=== PATIENT | female | born 1970 | race Caucasian/White ===

== ENCOUNTER 2016-06-27 21:28 | Emergency (ER) | payer MEDICAID, OTHER ==
[~2016-06-27] VITALS: Ht 160 cm; Wt 85.0 kg
[~2016-06-27 21:28] MED LIST: ACET-703 PO; BUDE.25I NEB; CYCL7.5T33 PO; DIAZ2 PO; FLUTI110I INH; GABA600T PO; GLIP5 PO; MEDR4PAK PO; MELO-1 PO; NOVORP2 SQ; PANT20 PO; PLAQ200T PO; VENTAER INH
[2016-06-27 21:54] VITALS: BP 152/94; PULSE 88; RESP 24; TEMP 98.5; O2SAT 96
[2016-06-27] MEDS ORDERED: SODIUM CHLOR 0.9% 1000 ML INJ 1,000 ML IV SCH (22:04)
--- NOTE | 2016-06-27 22:10 | PD ---
HPI Chief Complaint: Pain: Acute or Chronic Time Seen by Provider: 22:01 Travel History International Travel<30 days: No Contact w/Intl Traveler<30days: No Traveled to known affect area: No History of Present Illness HPI 46-year-old female with history of fibromyalgia, anxiety, here for evaluation of abdominal pain and posterior head pain. Abdominal pain is right and mid. History of cholecystectomy. She reports diffuse headache which started this morning, progressive in onset. The patient appears very anxious. No chest pain. No fevers or chills. No paresthesias or motor deficits. PFSH Past Medical History Hx Anticoagulant Therapy: Yes Asthma: Yes Cardiovascular Problems: Yes (NE) Cerebrovascular Accident: Yes (TIA) Diabetes: Yes Diminished Hearing: No Fibromyalgia: Yes Respiratory: Yes (ASTHMA) Immunizations Current: Yes ?: Not LMP: 06/12/16 : 2 Para: 2 Past Surgical History Section: Yes Cholecystectomy: Yes Other Surgery: Yes (tendonitis) Social History Alcohol Use: No Tobacco Use: No (NEVER) Substance Use: No Allergies-Medications (Allergen,Severity, Reaction): Coded Allergies: Iodine (Verified Allergy, Severe, Anaphylaxis, 06/27/16) Shellfish (Verified Allergy, Severe, Anaphylaxis, 06/27/16) Theophylline (Verified Allergy, Severe, Anaphylaxis, 06/27/16) Benadryl (Verified Allergy, Intermediate, SWELLING, 06/27/16) Naprosyn (Verified Allergy, Intermediate, Rash, 06/27/16) Penicillin (Verified Allergy, Intermediate, RASH, 06/27/16) Broccoli (Verified Allergy, Unknown, 06/27/16) Imuran (Verified Allergy, Unknown, 06/27/16) Keflex (Verified Allergy, Unknown, 06/27/16) Motrin (Verified Adverse Reaction, Mild, LUPUS, 06/27/16) Uncoded Allergies: AMRNOHILSON (Allergy, Severe, 12/16/15) .. Eggplant (Allergy, Unknown, 04/23/16) Reported Meds & Prescriptions Reported Meds & Active Scripts Active Gabapentin 600 Mg Tab 600 Mg PO TID Meloxicam 15 Mg Tab 15 Mg PO DAILY Reported Novolin R Inj (Insulin Human Regular) 1,000 Unit/10 Ml Vial 0 SQ DIRECTED Sliding Scale As Directed. Plaquenil (Hydroxychloroquine Sulfate) 200 Mg Tab 200 Mg PO BID Take with food Glucotrol (Glipizide) 5 Mg Tab 5 Mg PO DAILY Take 30 minutes before a meal Flovent Hfa 12 GM Inh (Fluticasone Propionate) 110 Mcg/Act Inh 1 Puff INH BID Pulmicort Respules (Budesonide) 0.25 Mg/2 Ml Neb 0.25 Mg NEB Q12HR Ventolin Hfa 18 GM Inh (Albuterol Sulfate) 90 Mcg/Act Aer 2 Puff INH Q4H PRN Review of Systems Except as stated in HPI: all other systems reviewed are Neg Physical Exam Narrative GENERAL: Well-developed, well-nourished, appears anxious, no distress. SKIN: Warm and dry. HEAD: Atraumatic. Normocephalic. EYES: Pupils equal and round. No scleral icterus. No injection or drainage. ENT: Mucous membranes pink and moist. NECK: Trachea midline. No JVD. No nuchal rigidity. CARDIOVASCULAR: Regular rate and rhythm. RESPIRATORY: No accessory muscle use. Clear to auscultation. Breath sounds equal bilaterally. GASTROINTESTINAL: Abdomen soft, non-tender, nondistended. MUSCULOSKELETAL: No obvious deformities. No clubbing. No cyanosis. No edema. NEUROLOGICAL: Awake and alert. No obvious cranial nerve deficits. Motor grossly within normal limits. Normal speech. PSYCHIATRIC: Appropriate mood and affect; insight and judgment normal. Data Data Last Documented VS Vital Signs Date Time Temp Pulse Resp B/P Pulse Ox O2 Delivery O2 Flow Rate FiO2 06/27/16 23:32 16 97 Room Air 06/27/16 23:00 82 152/93 06/27/16 21:54 98.5 Orders Beta Hcg (Quant/Titer) (06/27/16 22:04) Complete Blood Count With Diff (06/27/16 22:04) Comprehensive Metabolic Panel (06/27/16 22:04) Lipase (06/27/16 22:04) Prothrombin Time / Inr (Pt) (06/27/16 22:04) Act Partial Throm Time (Ptt) (06/27/16 22:04) Urinalysis - C+S If Indicated (06/27/16 22:04) Iv Access Insert/Monitor (06/27/16 22:04) Ecg Monitoring (06/27/16 22:04) Oximetry (06/27/16 22:04) Morphine Inj (Morphine Inj) (06/27/16 22:15) Sodium Chlor 0.9% 1000 Ml Inj (Ns 1000 M (06/27/16 22:04) Sodium Chloride 0.9% Flush (Ns Flush) (06/27/16 22:15) Electrocardiogram (06/27/16 22:04) Ct Abd/Pel W/O Iv Contrast (06/27/16 22:04) Metoclopramide Inj (Reglan Inj) (06/27/16 22:15) Ct Brain W/O Iv Contrast(Rout) (06/27/16 ) Sodium Chlor 0.9% 1000 Ml Inj (Ns 1000 M (06/27/16 22:15) Labs Laboratory Tests Test 06/27/16 06/27/16 23:00 23:15 Urine Color YELLOW Urine Turbidity CLEAR Urine pH 6.0 Urine Specific [place] 1.009 Urine Protein NEG mg/dL Urine Glucose (UA) NEG mg/dL Urine Ketones NEG mg/dL Urine Occult Blood SMALL Urine Nitrite NEG Urine Bilirubin NEG Urine Urobilinogen LESS THAN 2.0 MG/DL Urine Leukocyte Esterase TRACE Urine RBC LESS THAN 1 /hpf Urine WBC 3 /hpf Urine Bacteria RARE /hpf Urine Mucus FEW /lpf Microscopic Urinalysis Comment CULT NOT INDICATED Prothrombin Time 10.8 SEC Prothromb Time International 1.0 RATIO Ratio Activated Partial 27.0 SEC Thromboplast Time Sodium Level 142 MEQ/L Potassium Level 3.3 MEQ/L Chloride Level 105 MEQ/L Carbon Dioxide Level 28.6 MEQ/L Anion Gap 8 MEQ/L Blood Urea Nitrogen 7 MG/DL Creatinine 0.73 MG/DL Estimat Glomerular Filtration 86 ML/MIN Rate Random Glucose 82 MG/DL Calcium Level 8.3 MG/DL Total Bilirubin 0.2 MG/DL Aspartate Amino Transf 17 U/L (AST/SGOT) Alanine Aminotransferase 32 U/L (ALT/SGPT) Alkaline Phosphatase 74 U/L Total Protein 7.5 GM/DL Albumin 3.7 GM/DL Lipase 245 U/L Human Chorionic Gonadotropin, LESS THAN 1 Quant MIU/ML White Blood Count 5.7 TH/MM3 Red Blood Count 4.54 MIL/MM3 Hemoglobin 8.9 GM/DL Hematocrit 28.6 % Mean Corpuscular Volume 63.0 FL Mean Corpuscular Hemoglobin 19.6 PG Mean Corpuscular Hemoglobin 31.1 % Concent Red Cell Distribution Width 20.1 % Platelet Count 165 TH/MM3 Mean Platelet Volume 10.0 FL Neutrophils (%) (Auto) 56.5 % Lymphocytes (%) (Auto) 31.0 % Monocytes (%) (Auto) 8.6 % Eosinophils (%) (Auto) 3.2 % Basophils (%) (Auto) 0.7 % Neutrophils # (Auto) 3.2 TH/MM3 Lymphocytes # (Auto) 1.8 TH/MM3 Monocytes # (Auto) 0.5 TH/MM3 Eosinophils # (Auto) 0.2 TH/MM3 Basophils # (Auto) 0.0 TH/MM3 CBC Comment AUTO DIFF Differential Comment AUTO DIFF CONFIRMED Platelet Estimate NORMAL Platelet Morphology Comment NORMAL Ovalocytes 1+ Acanthocytes OCC MDM Medical Decision Making Medical Screen Exam Complete: Yes Emergency Medical Condition: Yes Medical Record Reviewed: Yes Interpretation(s) EKG: Sinus, rate 94, normal axis, normal intervals, no acute ischemic abnormality. Differential Diagnosis Intra-abdominal infection, viral illness, acute on chronic pain, meningitis/ encephalitis/SAH unlikely Narrative Course Vital signs are within normal limits. CBC is remarkable for hemoglobin 8.9, hematocrit 28.6 which is around her baseline, otherwise unremarkable. CMP is remarkable for potassium 3.3, otherwise unremarkable. Lipase is 245. Beta hCG is negative. UA is not suggestive of UTI. CT head: Stable brain, no acute intracranial findings. CT abdomen pelvis: No acute findings. The patient was given pain medications, and upon reassessment she is resting comfortably. She is still complaining of some abdominal discomfort. Her abdominal exam is benign. I believe this is an acute exacerbation of her chronic pain syndrome/fibromyalgia. Chart review shows that the patient has been here several times in the past with similar complaints. I believe she is stable for discharge home with outpatient follow-up with her primary care physician this week. She was informed on when to return to the emergency department. She verbalizes understanding and agreement with plan. Diagnosis Primary Impression: Abdominal pain Qualified Code: R10.9 - Abdominal pain, unspecified location Referrals: Primary Care Physician 3 days Additional Instructions: Follow-up with your primary care physician this week. Return to the emergency department for worsening symptoms or any other concerns. Disposition: 01 DISCHARGE HOME Condition: Stable Kelvin Frederick MD Jun 27, 2016 22:10
[2016-06-27] MEDS ORDERED: MORPHINE SULFATE 4 MG/ML INJ IV PUSH ONE (22:15)
[2016-06-27] MEDS ORDERED: SODIUM CHLORIDE 0.9% FLUSH 5 ML FLUSH IVF PRN (22:15)
[2016-06-27] MEDS ORDERED: SODIUM CHLOR 0.9% 1000 ML INJ 1,000 ML IV ONE (22:15)
[2016-06-27] MEDS ORDERED: METOCLOPRAMIDE HCL 10 MG/2 ML VIAL IV PUSH ONE (22:15)
[2016-06-27 23:00] VITALS: BP 152/93; PULSE 82; RESP 16; O2SAT 97
[2016-06-27 23:30] LABS: AUTOMATED NEUTROPHIL # 3.2 TH/MM3 (1.8-7.7); BASOPHIL % 0.7 % (0.0-2.0); EOSINOPHIL # 0.2 TH/MM3 (0-0.4); EOSINOPHIL % 3.2 % (0.0-4.0); HEMATOCRIT 28.6 % (35.0-46.0); LYMPHOCYTE # 1.8 TH/MM3 (1.0-4.8); MEAN CORPUSCULAR HEMOGLOBIN 19.6 PG (27.0-34.0); MEAN CORPUSCULAR HGB CONC 31.1 % (32.0-36.0); MONO % 8.6 % (0.0-8.0); NEUT % 56.5 % (16.0-70.0); PLATELET COUNT 165 TH/MM3 (150-450); RED BLOOD COUNT 4.54 MIL/MM3 (4.00-5.30); RED CELL DISTRIBUTION WIDTH 20.1 % (11.6-17.2); WHITE BLOOD COUNT 5.7 TH/MM3 (4.0-11.0)
[2016-06-27 23:31] LABS: BACTERIA, URINE RARE /hpf; BLOOD, URINE SMALL (NEG); GLUCOSE,URINE NEG (NEG); KETONE, URINE NEG (NEG); MUCUS URINE FEW /lpf (OCC); NITRITE,URINE NEG (NEG); URINE COLOR YELLOW (YELLW/STRAW)
[2016-06-27 23:32] VITALS: RESP 16; O2SAT 97
[2016-06-27 23:32] LABS: COMMENT (UR) CULT NOT INDICATED; CULTURE IF INDICATED CULT NOT INDICATED
[2016-06-27 23:33] LABS: HEMO FLAGS AUTO DIFF
[2016-06-27 23:35] LABS: PROTHROMBIN TIME - PATIENT 10.8 SEC (9.8-11.6)
[2016-06-27 23:38] LABS: ALT (GPT) 32 U/L (10-53); ANION GAP 8 MEQ/L (5-15); AST (GOT) 17 U/L (15-37); BICARBONATE 28.6 MEQ/L (21.0-32.0); BLOOD UREA NITROGEN 7 MG/DL (7-18); CHLORIDE 105 MEQ/L (98-107); GLOMERULAR FILTRATION RATE 86 ML/MIN (>89); POTASSIUM 3.3 MEQ/L (3.5-5.1); SODIUM (NA) 142 MEQ/L (136-145)
[2016-06-27 23:42] LABS: ALKALINE PHOSPHATASE 74 U/L (45-117); BETA HCG QUANT LESS THAN 1 MIU/ML (0-5); TOTAL BILIRUBIN ADULT 0.2 MG/DL (0.2-1.0)
[2016-06-28 00:09] LABS: ACANTHOCYTES OCC (NORMAL); OVALOCYTES 1+ (NORMAL); PLATELET ESTIMATE SMEAR NORMAL (NORMAL); PLATELET MORPHOLOGY NORMAL (NORMAL); SCAN/DIFF AUTO DIFF CONFIRMED
--- NOTE | 2016-06-28 00:27 | RADRPT ---
EXAM DATE/TIME: 06/28/2016 00:00 [facility] COMPARISON: No previous studies available for comparison. INDICATIONS : Diffuse abdominal pain. ORAL CONTRAST: No oral contrast ingested. RADIATION DOSE: 10.63 CTDIvol (mGy) MEDICAL HISTORY : Cardiovascular disease. CVA, fibromyalgia SURGICAL HISTORY : Cholecystectomy. section. ENCOUNTER: Initial ACUITY: 1 day PAIN SCALE: 7/10 LOCATION: abdomen TECHNIQUE: Volumetric scanning of the abdomen and pelvis was performed. Using automated exposure control and ad justment of the mA and/or kV according to patient size, radiation dose was kept as low as reasonably achievable to obtain optimal diagnostic quality images. FINDINGS: LOWER LUNGS: The visualized lower lungs are clear. LIVER: Mild hepatomegaly and probable steatosis with mild focal sparing adjacent to the gallbladder fossa. G allbladder surgically absent. No evidence of focal mass or biliary ductal dilatation. SPLEEN: Normal size without lesion. PANCREAS: Within normal limits. KIDNEYS: Normal in size and shape. There is no mass, stone, or hydronephrosis. ADRENAL GLANDS: Within normal limits. VASCULAR: There is no aortic aneurysm. BOWEL/MESENTERY: The stomach, small bowel, and colon demonstrate no acute abnormality. There is no free intraperitone al air or fluid. ABDOMINAL WALL: Small fat containing umbilical hernia. No evidence of incarceration RETROPERITONEUM: There is no lymphadenopathy. BLADDER: No wall thickening or mass. REPRODUCTIVE: Within normal limits. INGUINAL: There is no lymphadenopathy or hernia. MUSCULOSKELETAL: Within normal limits for patient age. CONCLUSION: No acute CT findings in the abdomen or pelvis Shravan Hoover MD on June 28, 2016 at 0:18 Board Certified Radiologist. This report was verified electronically.
--- NOTE | 2016-06-28 00:29 | RADRPT ---
EXAM DATE/TIME: 06/28/2016 00:00 [facility] COMPARISON: CT BRAIN W/O CONTRAST, January 25, 2016, 21:40. INDICATIONS : Cephalgia. RADIATION DOSE: 56.35 CTDIvol (mGy) MEDICAL HISTORY : Cardiovascular disease. CVA, fibromyalgia SURGICAL HISTORY : Cholecystectomy. section. ENCOUNTER: Initial ACUITY: 1 day PAIN SCALE: 8/10 LOCATION: cranial TECHNIQUE: Multiple contiguous axial images were obtained of the head. Using automated exposure control and adj ustment of the mA and/or kV according to patient size, radiation dose was kept as low as reasonably a chievable to obtain optimal diagnostic quality images. FINDINGS: CEREBRUM: The ventricles are normal for age. No evidence of midline shift, mass lesion, hemorrhage or acute in farction. No extra-axial fluid collections are seen. POSTERIOR FOSSA: The cerebellum and brainstem are intact. The 4th ventricle is midline. The cerebellopontine angle i s unremarkable. EXTRACRANIAL: The visualized portion of the orbits is intact. SKULL: The calvaria is intact. No evidence of skull fracture. CONCLUSION: Stable brain appearance. No acute intracranial findings. Shravan Hoover MD on June 28, 2016 at 0:26 Board Certified Radiologist. This report was verified electronically.
[2016-06-28 01:30] VITALS: BP 144/99; PULSE 92; RESP 18; O2SAT 97
[2016-06-28] MEDS ORDERED: ONDANSETRON HCL 4 MG/2 ML VIAL IV PUSH ONE (01:45)
--- NOTE | 2016-06-28 10:47 | EKG ---
Date Performed: 06/27/2016 Time Performed: 23:43:02 PTAGE: 46 years EKG: Sinus rhythm NORMAL ECG Compared to prior tracing no significant change PREVIOUS TRACING : 03/18/2016 23.30 DOCTOR: Terry Thompson Interpretating Date/Time 06/28/2016 10:44:28
== END 2016-06-28 02:09 | disposition home or self-care (01) ==
LOC: NEPA 21:28
DX: R10.9 Unspecified abdominal pain (principal); R51 Headache; J45.909 Unspecified asthma, uncomplicated; I25.2 Old myocardial infarction; E11.9 Type 2 diabetes mellitus without complications; M79.7 Fibromyalgia
CPT/HCPCS: 70450; 74176; 80053; 81001; 83690; 84702; 85025; 85610; 85730; 93005; 96374; 96375; 99284; J2270; J2405; J2765; J7030

== ENCOUNTER 2016-07-02 19:38 | Emergency (ER) | payer MEDICAID, OTHER ==
[~2016-07-02] VITALS: Ht 160 cm; Wt 84.1 kg
[~2016-07-02 19:38] MED LIST changes: -ACET-703 PO; -CYCL7.5T33 PO; -DIAZ2 PO; -MEDR4PAK PO; -PANT20 PO
[2016-07-02 19:42] VITALS: BP 182/96; PULSE 91; RESP 16; TEMP 97.6
[2016-07-02] MEDS ORDERED: PANT20 PO (20:09)
[2016-07-02] MEDS ORDERED: TYLETAB34 PO (20:09)
[2016-07-02] MEDS ORDERED: MELO-1 PO (20:09)
--- NOTE | 2016-07-02 20:13 | PD ---
HPI Chief Complaint: Pain: Acute or Chronic Time Seen by Provider: 20:00 Travel History International Travel<30 days: No Contact w/Intl Traveler<30days: No Traveled to known affect area: No History of Present Illness HPI This is a 46-year-old female with history of fibromyalgia, lupus, chronic abdominal pain who presents for evaluation of "sciatic." She has had sciatic symptoms over the past several months which she describes as an electric type of pain that shoots down the right lower back down the right leg. Today the pain became worse after walking around the museum for a long time this morning. She took her regular meloxicam, Neurontin medications and then she [place] and [place]. The pain has persisted which prompted evaluation. In addition the patient is requesting refills of her meloxicam, Protonix. She denies any acute injury. She denies any bowel or bladder incontinence or saddle anesthesia. She has no other complaints. PFSH Past Medical History Hx Anticoagulant Therapy: Yes Asthma: Yes Anxiety: Yes Cardiovascular Problems: Yes (HTN) Cerebrovascular Accident: Yes (TIA) Diabetes: Yes Diminished Hearing: No Fibromyalgia: Yes GERD: Yes Respiratory: Yes (ASTHMA) Immunizations Current: Yes LMP: 06/14/16 : 2 Para: 2 Past Surgical History Section: Yes Cholecystectomy: Yes Other Surgery: Yes (tendonitis) Social History Alcohol Use: No Tobacco Use: No (NEVER) Substance Use: No Allergies-Medications (Allergen,Severity, Reaction): Coded Allergies: Iodine (Verified Allergy, Severe, Anaphylaxis, 07/02/16) Shellfish (Verified Allergy, Severe, Anaphylaxis, 07/02/16) Theophylline (Verified Allergy, Severe, Anaphylaxis, 07/02/16) Benadryl (Verified Allergy, Intermediate, SWELLING, 07/02/16) Naprosyn (Verified Allergy, Intermediate, Rash, 07/02/16) Penicillin (Verified Allergy, Intermediate, RASH, 07/02/16) Broccoli (Verified Allergy, Unknown, 07/02/16) Imuran (Verified Allergy, Unknown, 07/02/16) Keflex (Verified Allergy, Unknown, 07/02/16) Motrin (Verified Adverse Reaction, Mild, LUPUS, 07/02/16) Uncoded Allergies: AMRNOHILSON (Allergy, Severe, 12/16/15) .. Eggplant (Allergy, Unknown, 04/23/16) Reported Meds & Prescriptions Reported Meds & Active Scripts Active Protonix (Pantoprazole Sodium) 20 Mg Tab 20 Mg PO DAILY Meloxicam 15 Mg Tab 15 Mg PO DAILY Tylenol-Codeine #3 (Acetaminophen-Codeine) 300-30 mg Tab 1-2 Tab PO Q6H PRN Gabapentin 600 Mg Tab 600 Mg PO TID Meloxicam 15 Mg Tab 15 Mg PO DAILY Reported Novolin R Inj (Insulin Human Regular) 1,000 Unit/10 Ml Vial 0 SQ DIRECTED Sliding Scale As Directed. Plaquenil (Hydroxychloroquine Sulfate) 200 Mg Tab 200 Mg PO BID Take with food Glucotrol (Glipizide) 5 Mg Tab 5 Mg PO DAILY Take 30 minutes before a meal Flovent Hfa 12 GM Inh (Fluticasone Propionate) 110 Mcg/Act Inh 1 Puff INH BID Pulmicort Respules (Budesonide) 0.25 Mg/2 Ml Neb 0.25 Mg NEB Q12HR Ventolin Hfa 18 GM Inh (Albuterol Sulfate) 90 Mcg/Act Aer 2 Puff INH Q4H PRN Review of Systems Except as stated in HPI: all other systems reviewed are Neg Physical Exam Narrative GENERAL: This is an anxious appearing female who is in no acute distress. Her vital signs of been reviewed. SKIN: Warm and dry. HEAD: Atraumatic. Normocephalic. EYES: Pupils equal and round. No scleral icterus. No injection or drainage. ENT: No nasal bleeding or discharge. Mucous membranes pink and moist. NECK: Trachea midline. No JVD. CARDIOVASCULAR: Regular rate and rhythm. No murmur appreciated. RESPIRATORY: No accessory muscle use. Clear to auscultation. Breath sounds equal bilaterally. GASTROINTESTINAL: Abdomen soft, non-tender, nondistended. MUSCULOSKELETAL: No obvious deformities. There is no objective lower extremity edema. There is tenderness to palpation in the right lumbosacral musculature. The patient has pain when going from lying down to sitting position. She maintains full range of motion of the lower extremities albeit with some pain. NEUROLOGICAL: Awake and alert. No obvious cranial nerve deficits. Motor grossly within normal limits. Normal speech. Data Data Last Documented VS Vital Signs Date Time Temp Pulse Resp B/P Pulse Ox O2 Delivery O2 Flow Rate FiO2 07/02/16 20:13 16 07/02/16 19:42 97.6 91 182/96 Room Air Orders Acetamin-Hydrocod 325-5 Mg ([place] 5-325 (07/02/16 20:15) Ondansetron Odt (Zofran Odt) (07/02/16 20:15) Ketorolac Inj (Toradol Inj) (07/02/16 20:15) MDM Medical Decision Making Medical Screen Exam Complete: Yes Emergency Medical Condition: Yes Medical Record Reviewed: Yes Differential Diagnosis Herniated nucleus pulposis, piriformis syndrome, muscle spasm, DVT, arterial occlusion, peripheral vascular disease, peripheral neuropathy Narrative Course 46-year-old female with history of fibromyalgia, lupus, chronic abdominal pain presents with right-sided lower back pain that shoots down the right leg which has been ongoing for several months but worsened this morning after walking around at a museum for a long period of time. The patient has been evaluated for the same symptoms here in the past. Her examination is benign. Examination and history are consistent with lumbosacral radiculopathy and there is no evidence of an alternative more sinister etiology. Ideally this patient would follow up with her primary care physician and likely physical therapy versus pain management for continuing management of this issue. She is attempting to establish care with a new primary care physician, Dr. Reddy and she was encouraged in these endeavors. The plan is to give her refills of her Protonix and meloxicam. She will be given a short course of Tylenol with codeine for breakthrough pain. She is stable for discharge. Diagnosis Primary Impression: Acute exacerbation of chronic low back pain Additional Instructions: Avoid strenuous activity. Follow-up with a primary care physician. you may benefit from outpatient physical therapy or pain management. Med/Other Pt SpecificInfo: Prescription(s) given Scripts Pantoprazole (Protonix)20 Mg Tab20 Mg PO DAILY #30 TAB Ref 0 Prov:Kelvin Frederick MD 07/02/16 Meloxicam 15 Mg Tab15 Mg PO DAILY #30 TAB Ref 0 Prov:Kelvin Frederick MD 07/02/16 Acetaminophen-Codeine (Tylenol-Codeine #3)300-30 mg Tab1-2 Tab PO Q6H PRN (PAIN ) #20 TAB Ref 0 Prov:Kelvin Frederick MD 07/02/16 Disposition: 01 DISCHARGE HOME Condition: Stable Ant Robles Jul 02, 2016 20:13
[2016-07-02] MEDS ORDERED: KETOROLAC TROMETHAMINE 60 MG/2 ML (IM) VIAL IM ONE (20:15)
[2016-07-02] MEDS ORDERED: ACETAMINOPHEN/HYDROcodone 325 MG/5 MG TAB PO ONE (20:15)
[2016-07-02] MEDS ORDERED: ONDANSETRON ODT 4 MG TAB PO ONE (20:15)
== END 2016-07-02 20:53 | disposition home or self-care (01) ==
LOC: NEPB 19:38
DX: M54.5 Low back pain (principal); G89.29 Other chronic pain; M79.7 Fibromyalgia; I10 Essential (primary) hypertension; Z86.73 Personal history of transient ischemic attack (TIA), and cerebral infarction without residual deficits
CPT/HCPCS: 96372; 99283; J1885

== ENCOUNTER 2016-07-15 18:16 | Emergency (ER) | payer MEDICAID ==
[~2016-07-15] VITALS: Ht 160 cm; Wt 90.0 kg
[~2016-07-15 18:16] MED LIST changes: +PANT20 PO; +TYLETAB34 PO
[2016-07-15 18:18] VITALS: BP 163/93; PULSE 90; RESP 20; TEMP 98.2; O2SAT 98
[2016-07-15 23:17] VITALS: BP 144/83; PULSE 85; RESP 16; TEMP 98.5; O2SAT 99
[2016-07-16 00:44] LABS: BACTERIA, URINE RARE /hpf; BLOOD, URINE NEG (NEG); COMMENT (UR) CULTURE INDICATED; CULTURE IF INDICATED CULTURE INDICATED; GLUCOSE,URINE NEG (NEG); HYALINE CAST, URINE 1 /lpf (RARE); KETONE, URINE NEG (NEG); MUCUS URINE FEW /lpf (OCC); NITRITE,URINE NEG (NEG); PH, URINE 5.5 (5.0-8.5); SQUAMOUS EPITHELIAL CELL URINE 1 /hpf (0-5); URINE COLOR YELLOW (YELLW/STRAW)
[2016-07-16] MEDS ORDERED: BACT800T5 PO (00:53)
[2016-07-16] MEDS ORDERED: OSEL75 PO (00:53)
--- NOTE | 2016-07-16 00:53 | PD ---
HPI Chief Complaint: Cold / Flu Symptoms Time Seen by Provider: 23:13 Travel History International Travel<30 days: No Contact w/Intl Traveler<30days: No Traveled to known affect area: No History of Present Illness HPI Patient is a 46-year-old female presents to the emergency department for evaluation of body aches cough congestion nausea without vomiting and diarrhea. Patient states that the entire family has been sick with the flu recently. Patient states her symptoms for 2 days. She states she's been having fever at home but did not take her temperature. She states that she did not have a flu shot this year. Nonproductive cough. Denies any abdominal pain to me. PFSH Past Medical History Hx Anticoagulant Therapy: Yes Asthma: Yes Autoimmune Disease: Yes (LUPUS) Anxiety: Yes Cardiovascular Problems: Yes (HTN) Cerebrovascular Accident: Yes (TIA) Diabetes: Yes Patient Takes Glucophage: No Diminished Hearing: No Fibromyalgia: Yes GERD: Yes Respiratory: Yes (ASTHMA) Immunizations Current: Yes ?: Unknown : 2 Para: 2 Past Surgical History Section: Yes Cholecystectomy: Yes Other Surgery: Yes (tendonitis) Social History Alcohol Use: No Tobacco Use: No Substance Use: No Allergies-Medications (Allergen,Severity, Reaction): Coded Allergies: Iodine (Verified Allergy, Severe, Anaphylaxis, 07/02/16) Shellfish (Verified Allergy, Severe, Anaphylaxis, 07/02/16) Theophylline (Verified Allergy, Severe, Anaphylaxis, 07/02/16) Benadryl (Verified Allergy, Intermediate, SWELLING, 07/02/16) Naprosyn (Verified Allergy, Intermediate, Rash, 07/02/16) Penicillin (Verified Allergy, Intermediate, RASH, 07/02/16) Broccoli (Verified Allergy, Unknown, 07/02/16) Imuran (Verified Allergy, Unknown, 07/02/16) Keflex (Verified Allergy, Unknown, 07/02/16) Motrin (Verified Adverse Reaction, Mild, LUPUS, 07/02/16) Uncoded Allergies: AMRNOHILSON (Allergy, Severe, 12/16/15) .. Eggplant (Allergy, Unknown, 04/23/16) Reported Meds & Prescriptions Reported Meds & Active Scripts Active Bactrim DS (Sulfamethoxazole-Trimethoprim) 800-160 Mg Tab 1 Tab PO BID 5 Days Tamiflu (Oseltamivir Phosphate) 75 Mg Cap 75 Mg PO BID 5 Days Protonix (Pantoprazole Sodium) 20 Mg Tab 20 Mg PO DAILY Tylenol-Codeine #3 (Acetaminophen-Codeine) 300-30 mg Tab 1-2 Tab PO Q6H PRN Gabapentin 600 Mg Tab 600 Mg PO TID Meloxicam 15 Mg Tab 15 Mg PO DAILY Reported Novolin R Inj (Insulin Human Regular) 1,000 Unit/10 Ml Vial 0 SQ DIRECTED Sliding Scale As Directed. Plaquenil (Hydroxychloroquine Sulfate) 200 Mg Tab 200 Mg PO BID Take with food Glucotrol (Glipizide) 5 Mg Tab 5 Mg PO DAILY Take 30 minutes before a meal Flovent Hfa 12 GM Inh (Fluticasone Propionate) 110 Mcg/Act Inh 1 Puff INH BID Pulmicort Respules (Budesonide) 0.25 Mg/2 Ml Neb 0.25 Mg NEB Q12HR Ventolin Hfa 18 GM Inh (Albuterol Sulfate) 90 Mcg/Act Aer 2 Puff INH Q4H PRN Review of Systems Except as stated in HPI: all other systems reviewed are Neg Physical Exam Narrative GENERAL: [Well-developed well-nourished, overweight but in no apparent distress. SKIN: Warm and dry. HEAD: Atraumatic. Normocephalic. EYES: Pupils equal and round. No scleral icterus. No injection or drainage. ENT: No nasal bleeding or discharge. Mucous membranes pink and moist. TMs clear bilaterally. NECK: Trachea midline. No JVD. CARDIOVASCULAR: Regular rate and rhythm. No murmur appreciated. RESPIRATORY: No accessory muscle use. Clear to auscultation. Breath sounds equal bilaterally. GASTROINTESTINAL: Abdomen soft, non-tender, nondistended. Hepatic and splenic margins not palpable. MUSCULOSKELETAL: No obvious deformities. No clubbing. No cyanosis. No edema. NEUROLOGICAL: Awake and alert. No obvious cranial nerve deficits. Motor grossly within normal limits. Normal speech. PSYCHIATRIC: Appropriate mood and affect; insight and judgment normal. Data Data Last Documented VS Vital Signs Date Time Temp Pulse Resp B/P Pulse Ox O2 Delivery O2 Flow Rate FiO2 07/16/16 01:00 98.9 69 16 151/77 98 07/15/16 23:53 Room Air Orders Chest, Pa & Lat (07/15/16 ) Urinalysis - C+S If Indicated (07/15/16 23:34) Ed Urine Pregnancytest Poc (07/15/16 23:34) Urine Culture (07/16/16 00:00) Labs Laboratory Tests Test 07/16/16 00:00 Urine Color YELLOW Urine Turbidity CLEAR Urine pH 5.5 Urine Specific [place] 1.012 Urine Protein TRACE mg/dL Urine Glucose (UA) NEG mg/dL Urine Ketones NEG mg/dL Urine Occult Blood NEG Urine Nitrite NEG Urine Bilirubin NEG Urine Urobilinogen LESS THAN 2.0 MG/DL Urine Leukocyte Esterase MOD Urine RBC 2 /hpf Urine WBC 14 /hpf Urine Squamous Epithelial 1 /hpf Cells Urine Bacteria RARE /hpf Urine Hyaline Casts 1 /lpf Urine Mucus FEW /lpf Microscopic Urinalysis Comment CULTURE INDICATED MDM Medical Decision Making Medical Screen Exam Complete: Yes Emergency Medical Condition: Yes Differential Diagnosis Influenza, urinary tract infection, , pneumonia. Narrative Course Patient roomed in the emergency department, she has no SIRS criteria based on labs and appears well. There is no indication for blood work at this time. Chest x-ray is indicated to rule out pneumonia as well as urinary analysis to rule out urinary tract infection. Given the strong history for flu we will empirically treat for influenza without testing. Patient is agreeable to this. Chest x-ray negative. She also has a urinary tract infection on urinalysis but test negative. Will be started on Bactrim as well as Tamiflu. She is stable for discharge at this time. Discussed symptomatic management with Tylenol ibuprofen and push by mouth fluids. Diagnosis Primary Impression: Flu-like symptoms Additional Impression: UTI (urinary tract infection) Med/Other Pt SpecificInfo: Prescription(s) given Scripts Sulfamethoxazole-Trimethoprim (Bactrim DS)800-160 Mg Tab1 Tab PO BID 5 Days Ref 0 Prov:Ian Bustillso MD 07/16/16 Oseltamivir (Tamiflu)75 Mg Cap75 Mg PO BID 5 Days Ref 0 Prov:Ian Bustillos MD 07/16/16 Disposition: 01 DISCHARGE HOME Condition: Stable Ian Bustillos MD Jul 16, 2016 00:53
--- NOTE | 2016-07-16 00:59 | RADRPT ---
EXAM DATE/TIME: 07/15/2016 23:58 [place] COMPARISON: CHEST SINGLE AP, April 06, 2016, 1:47. INDICATIONS : Fever, cough. MEDICAL HISTORY : Cardiovascular disease. SURGICAL HISTORY : None. ENCOUNTER: Initial ACUITY: 2 days PAIN SCORE: 4/10 LOCATION: Right upper chest FINDINGS: PA and lateral views of the chest demonstrate a normal-sized cardiac silhouette. There is no effusion , consolidation, or pneumothorax. The bones and soft tissues demonstrate no acute abnormality. CONCLUSION: No acute cardiopulmonary abnormality is identified. Shravan Xavier MD on July 16, 2016 at 0:57 Board Certified Radiologist. This report was verified electronically.
[2016-07-16 01:00] VITALS: BP 151/77; TEMP 98.9
[2016-07-17] MEDS ORDERED: PROM25TA5 PO (00:40)
== END 2016-07-16 01:04 | disposition home or self-care (01) ==
LOC: NEPA 18:16
DX: N39.0 Urinary tract infection, site not specified (principal); M79.1 Myalgia; R05 Cough; R11.0 Nausea; R50.9 Fever, unspecified; I10 Essential (primary) hypertension; E11.9 Type 2 diabetes mellitus without complications; Z79.01 Long term (current) use of anticoagulants; Z79.4 Long term (current) use of insulin; Z87.09 Personal history of other diseases of the respiratory system; Z86.2 Personal history of diseases of the blood and blood-forming organs and certain disorders involving the immune mechanism; Z86.79 Personal history of other diseases of the circulatory system; Z86.73 Personal history of transient ischemic attack (TIA), and cerebral infarction without residual deficits; Z87.39 Personal history of other diseases of the musculoskeletal system and connective tissue; Z87.19 Personal history of other diseases of the digestive system; Z86.59 Personal history of other mental and behavioral disorders
CPT/HCPCS: 71020; 81001; 84703; 87086; 99283

== ENCOUNTER 2016-07-16 20:17 | Emergency (ER) | payer MEDICAID ==
[~2016-07-16] VITALS: Ht 160 cm; Wt 91.0 kg
[~2016-07-16 20:17] MED LIST changes: +BACT800T5 PO; +OSEL75 PO
[2016-07-16 20:23] VITALS: BP 171/85; PULSE 95; RESP 16; TEMP 98.6; O2SAT 98
[2016-07-16] MEDS ORDERED: ONDANSETRON ODT 4 MG TAB PO ONE (23:15)
[2016-07-17] MEDS ORDERED: PROM25TA5 PO (00:40)
--- NOTE | 2016-07-17 00:41 | PD ---
HPI Chief Complaint: vomiting Time Seen by Provider: 23:04 Travel History International Travel<30 days: No Contact w/Intl Traveler<30days: No Traveled to known affect area: No History of Present Illness HPI 46 y/o female presents with nonbloody emesis, body aches, congestion, cough and general ill feeling over the past couple of days. She states she did not fill the medications she was given early this morning. She states that she went to the pharmacy with the Tamiflu was too expensive and she just didn't fill the other one. She states her daughter has similar symptoms. She denies any other specific complaints other than intermittent upper abdominal pain. She feels worse when she moves around. She denies other modifying factors. PFSH Past Medical History Hx Anticoagulant Therapy: Yes Asthma: Yes Autoimmune Disease: Yes (LUPUS) Anxiety: Yes Cardiovascular Problems: Yes (HTN) Cerebrovascular Accident: Yes (TIA) Diabetes: Yes Patient Takes Glucophage: No Diminished Hearing: No Fibromyalgia: Yes GERD: Yes Respiratory: Yes (ASTHMA) Immunizations Current: Yes Tetanus Vaccination: < 5 Years Influenza Vaccination: Yes ?: Unknown LMP: 1 month ago. : 2 Para: 2 Past Surgical History Section: Yes Cholecystectomy: Yes Other Surgery: Yes (tendonitis) Social History Alcohol Use: No Tobacco Use: No Substance Use: No Allergies-Medications (Allergen,Severity, Reaction): Coded Allergies: Iodine (Verified Allergy, Severe, Anaphylaxis, 07/16/16) Shellfish (Verified Allergy, Severe, Anaphylaxis, 07/16/16) Theophylline (Verified Allergy, Severe, Anaphylaxis, 07/16/16) Benadryl (Verified Allergy, Intermediate, SWELLING, 07/16/16) Naprosyn (Verified Allergy, Intermediate, Rash, 07/16/16) Penicillin (Verified Allergy, Intermediate, RASH, 07/16/16) Broccoli (Verified Allergy, Unknown, 07/16/16) Imuran (Verified Allergy, Unknown, 07/16/16) Keflex (Verified Allergy, Unknown, 07/16/16) Motrin (Verified Adverse Reaction, Mild, LUPUS, 07/16/16) Uncoded Allergies: AMRNOHILSON (Allergy, Severe, 12/16/15) .. Eggplant (Allergy, Unknown, 04/23/16) Reported Meds & Prescriptions Reported Meds & Active Scripts Active Phenergan (Promethazine HCl) 25 Mg Tab 25 Mg PO Q6H PRN Bactrim DS (Sulfamethoxazole-Trimethoprim) 800-160 Mg Tab 1 Tab PO BID 5 Days Tamiflu (Oseltamivir Phosphate) 75 Mg Cap 75 Mg PO BID 5 Days Protonix (Pantoprazole Sodium) 20 Mg Tab 20 Mg PO DAILY Tylenol-Codeine #3 (Acetaminophen-Codeine) 300-30 mg Tab 1-2 Tab PO Q6H PRN Gabapentin 600 Mg Tab 600 Mg PO TID Meloxicam 15 Mg Tab 15 Mg PO DAILY Reported Novolin R Inj (Insulin Human Regular) 1,000 Unit/10 Ml Vial 0 SQ DIRECTED Sliding Scale As Directed. Plaquenil (Hydroxychloroquine Sulfate) 200 Mg Tab 200 Mg PO BID Take with food Glucotrol (Glipizide) 5 Mg Tab 5 Mg PO DAILY Take 30 minutes before a meal Flovent Hfa 12 GM Inh (Fluticasone Propionate) 110 Mcg/Act Inh 1 Puff INH BID Pulmicort Respules (Budesonide) 0.25 Mg/2 Ml Neb 0.25 Mg NEB Q12HR Ventolin Hfa 18 GM Inh (Albuterol Sulfate) 90 Mcg/Act Aer 2 Puff INH Q4H PRN Review of Systems Except as stated in HPI: all other systems reviewed are Neg Physical Exam Narrative GENERAL: Well-nourished, well-developed patient. Well-appearing SKIN: Warm and dry. HEAD: Normocephalic and atraumatic. EYES: No injection or drainage. ENT: No nasal drainage noted. NECK: Supple, trachea midline. CARDIOVASCULAR: Regular rate and rhythm RESPIRATORY: Breath sounds equal bilaterally. No accessory muscle use. GASTROINTESTINAL: Abdomen soft, non-tender, nondistended. EXTREMITIES: No edema. NEUROLOGICAL: Awake and alert. Motor and sensory grossly within normal limits. Normal speech. Data Data Last Documented VS Vital Signs Date Time Temp Pulse Resp B/P Pulse Ox O2 Delivery O2 Flow Rate FiO2 07/16/16 20:23 98.6 95 16 171/85 98 Orders Ondansetron Odt (Zofran Odt) (07/16/16 23:15) Oral Rehydration (07/16/16 23:13) Influenzae A/B Antigen (07/16/16 23:14) MDM Medical Decision Making Medical Screen Exam Complete: Yes Emergency Medical Condition: Yes Medical Record Reviewed: Yes (past history confirm, urine culture is still pending; patient given Tamiflu and Bactrim, recent normal ct ) Interpretation(s) Flu test is negative Differential Diagnosis Upper respiratory infection, gastroenteritis, dehydration Narrative Course Patient with benign exam and stable vitals. Will dose with Zofran and if able to tolerate oral hydration will hold on IV fluid hydration No emesis here. Able to drink about 8 ounces of Gatorade without difficulty and feeling better,Patient denies any new complaints, all questions answered. Patient knows that follow up is incumbent on them and to return to the emergency room immediately if new or worsening symptoms develop. Patient given strict return precautions, vitals reviewed and are normal, agrees to further workup as an outpatient and understands the importance of filling prescriptions and will provide with Phenergan as this is not as expensive as Zofran. Advised given flu test is negative can hold on Tamiflu but given urine culture is pending to fill other prescription Diagnosis Primary Impression: Vomiting Qualified Code: R11.2 - Non-intractable vomiting with nausea, unspecified vomiting type Additional Impressions: Body aches Congested nose Patient Instructions: General Instructions Additional Instructions: return as needed, follow with primary monday, keep hydrated, phenergan as needed Med/Other Pt SpecificInfo: Prescription(s) given Scripts Promethazine (Phenergan)25 Mg Tab25 Mg PO Q6H PRN (Nausea/Vomiting) #10 TAB Ref 0 Prov:Jen Mccarthy MD 07/17/16 Disposition: 01 DISCHARGE HOME Condition: Stable Jen Mccarthy MD Jul 17, 2016 00:41
== END 2016-07-17 01:10 | disposition home or self-care (01) ==
LOC: NEPC 20:17
DX: R11.2 Nausea with vomiting, unspecified (principal); R09.81 Nasal congestion; R10.10 Upper abdominal pain, unspecified; R05 Cough
CPT/HCPCS: 87804; 99284

== ENCOUNTER 2016-07-30 18:17 | Emergency (ER) | payer MEDICAID ==
[~2016-07-30 18:17] MED LIST changes: +PROM25TA5 PO
[2016-07-30 18:20] VITALS: BP 127/84; PULSE 97; RESP 20; TEMP 98.1; O2SAT 98
[2016-07-30] MEDS ORDERED: PANTOPRAZOLE SODIUM 40 MG VIAL IVP ONE (18:45)
[2016-07-30] MEDS ORDERED: SODIUM CHLOR 0.9% 1000 ML INJ 1,000 ML IV SCH (18:45)
[2016-07-30] MEDS ORDERED: ONDANSETRON HCL 4 MG/2 ML VIAL IVP ONE (18:45)
[2016-07-30] MEDS ORDERED: SODIUM CHLORIDE 0.9% FLUSH 5 ML FLUSH IVF PRN (18:45)
--- NOTE | 2016-07-30 18:53 | PD ---
HPI Chief Complaint: GI Complaint Time Seen by Provider: 18:49 Travel History International Travel<30 days: No Contact w/Intl Traveler<30days: No Traveled to known affect area: No History of Present Illness HPI 46-year-old female presents to the emergency department for evaluation of epigastric abdominal pain that started 1-2 days ago with associated nausea, vomiting, diarrhea. Patient states she has a history of this chronic pain. She was seen last June and CT of the abdomen/pelvis was completed at time which showed no acute abnormality. She states these same symptoms occur approximately monthly. She states she ran of her Protonix 2 weeks ago and symptoms started worsening then. She states she has a history of gastritis. She was encouraged to follow-up with a call or contact centre manager, but has not yet done so. Patient states that after having a bowel movement, she will likely noticed some blood on toilet paper. Patient reports history of lupus, fibromyalgia, gastritis, diabetes. Patient states she is currently taking Plaquenil, Neurontin. Patient does report history of cholecystectomy. PFSH Past Medical History Hx Anticoagulant Therapy: Yes Asthma: Yes Autoimmune Disease: Yes (LUPUS) Anxiety: Yes Cardiovascular Problems: Yes Cerebrovascular Accident: Yes (TIA) Diabetes: Yes Diminished Hearing: No Fibromyalgia: Yes GERD: Yes Respiratory: Yes (ASTHMA) Immunizations Current: Yes : 2 Para: 2 Past Surgical History Section: Yes Cholecystectomy: Yes Other Surgery: Yes (tendonitis) Social History Alcohol Use: No Tobacco Use: No Substance Use: No Allergies-Medications (Allergen,Severity, Reaction): Coded Allergies: Iodine (Verified Allergy, Severe, Anaphylaxis, 07/30/16) Shellfish (Verified Allergy, Severe, Anaphylaxis, 07/30/16) Theophylline (Verified Allergy, Severe, Anaphylaxis, 07/30/16) Benadryl (Verified Allergy, Intermediate, SWELLING, 07/30/16) Naprosyn (Verified Allergy, Intermediate, Rash, 07/30/16) Penicillin (Verified Allergy, Intermediate, RASH, 07/30/16) Broccoli (Verified Allergy, Unknown, 07/30/16) Imuran (Verified Allergy, Unknown, 07/30/16) Keflex (Verified Allergy, Unknown, 07/30/16) Motrin (Verified Adverse Reaction, Mild, LUPUS, 07/30/16) Uncoded Allergies: AMRNOHILSON (Allergy, Severe, 12/16/15) .. Eggplant (Allergy, Unknown, 04/23/16) Reported Meds & Prescriptions Reported Meds & Active Scripts Active Phenergan (Promethazine HCl) 25 Mg Tab 25 Mg PO Q6H PRN Protonix (Pantoprazole Sodium) 20 Mg Tab 20 Mg PO DAILY Gabapentin 600 Mg Tab 600 Mg PO TID Meloxicam 15 Mg Tab 15 Mg PO DAILY Reported Novolin R Inj (Insulin Human Regular) 1,000 Unit/10 Ml Vial 0 SQ DIRECTED Sliding Scale As Directed. Plaquenil (Hydroxychloroquine Sulfate) 200 Mg Tab 200 Mg PO BID Take with food Glucotrol (Glipizide) 5 Mg Tab 5 Mg PO DAILY Take 30 minutes before a meal Flovent Hfa 12 GM Inh (Fluticasone Propionate) 110 Mcg/Act Inh 1 Puff INH BID Pulmicort Respules (Budesonide) 0.25 Mg/2 Ml Neb 0.25 Mg NEB Q12HR Ventolin Hfa 18 GM Inh (Albuterol Sulfate) 90 Mcg/Act Aer 2 Puff INH Q4H PRN Review of Systems Except as stated in HPI: all other systems reviewed are Neg Physical Exam Narrative GENERAL: Well-developed well-nourished female patient, ambulatory. Afebrile SKIN: Warm and dry. HEAD: Normocephalic. Atraumatic. EYES: No scleral icterus. No injection or drainage. NECK: Supple, trachea midline. No JVD or lymphadenopathy. CARDIOVASCULAR: Regular rate and rhythm without murmurs, gallops, or rubs. RESPIRATORY: Breath sounds equal bilaterally. No accessory muscle use. Lungs sounds are clear to auscultation. GASTROINTESTINAL: Abdomen soft and nondistended. Patient has generalized abdominal pain, worse in the epigastric region. MUSCULOSKELETAL: No cyanosis, or edema. BACK: Nontender without obvious deformity. No CVA tenderness. RECTAL EXAM: No masses or tenderness, stool is brown. Rectal exam is done with nurse, Marilyn, at bedside. Data Data Last Documented VS Vital Signs Date Time Temp Pulse Resp B/P Pulse Ox O2 Delivery O2 Flow Rate FiO2 07/30/16 19:28 85 20 133/80 99 Room Air 07/30/16 18:20 98.1 Orders Electrocardiogram (07/30/16 ) Complete Blood Count With Diff (07/30/16 18:45) Comprehensive Metabolic Panel (07/30/16 18:45) Lipase (07/30/16 18:45) Urinalysis - C+S If Indicated (07/30/16 18:45) Iv Access Insert/Monitor (07/30/16 18:45) Ecg Monitoring (07/30/16 18:45) Oximetry (07/30/16 18:45) Ondansetron Inj (Zofran Inj) (07/30/16 18:45) Pantoprazole Inj (Protonix Inj) (07/30/16 18:45) Sodium Chlor 0.9% 1000 Ml Inj (Ns 1000 M (07/30/16 18:45) Sodium Chloride 0.9% Flush (Ns Flush) (07/30/16 18:45) Ed Urine Pregnancytest Poc (07/30/16 18:45) Al-Mag Hy-Si 40-40-4 Mg/Ml Liq (Mag-Al P (07/30/16 21:15) Lidocaine 2% Viscous (Xylocaine 2% Visco (07/30/16 21:15) Labs Laboratory Tests Test 07/30/16 07/30/16 19:00 20:50 White Blood Count 6.9 TH/MM3 Red Blood Count 4.89 MIL/MM3 Hemoglobin 9.6 GM/DL Hematocrit 31.5 % Mean Corpuscular Volume 64.4 FL Mean Corpuscular Hemoglobin 19.6 PG Mean Corpuscular Hemoglobin 30.4 % Concent Red Cell Distribution Width 20.9 % Platelet Count 161 TH/MM3 Mean Platelet Volume 10.9 FL Neutrophils (%) (Auto) 74.4 % Lymphocytes (%) (Auto) 17.7 % Monocytes (%) (Auto) 5.4 % Eosinophils (%) (Auto) 1.9 % Basophils (%) (Auto) 0.6 % Neutrophils # (Auto) 5.1 TH/MM3 Lymphocytes # (Auto) 1.2 TH/MM3 Monocytes # (Auto) 0.4 TH/MM3 Eosinophils # (Auto) 0.1 TH/MM3 Basophils # (Auto) 0.0 TH/MM3 CBC Comment AUTO DIFF Differential Comment AUTO DIFF CONFIRMED Platelet Estimate NORMAL Platelet Morphology Comment NORMAL Sodium Level 137 MEQ/L Potassium Level 3.4 MEQ/L Chloride Level 102 MEQ/L Carbon Dioxide Level 29.8 MEQ/L Anion Gap 5 MEQ/L Blood Urea Nitrogen 9 MG/DL Creatinine 0.78 MG/DL Estimat Glomerular Filtration 80 ML/MIN Rate Random Glucose 90 MG/DL Calcium Level 8.5 MG/DL Total Bilirubin 0.4 MG/DL Aspartate Amino Transf 18 U/L (AST/SGOT) Alanine Aminotransferase 31 U/L (ALT/SGPT) Alkaline Phosphatase 87 U/L Total Protein 8.2 GM/DL Albumin 3.8 GM/DL Lipase 220 U/L Urine Color YELLOW Urine Turbidity CLEAR Urine pH 6.0 Urine Specific [place] 1.018 Urine Protein NEG mg/dL Urine Glucose (UA) NEG mg/dL Urine Ketones NEG mg/dL Urine Occult Blood SMALL Urine Nitrite NEG Urine Bilirubin NEG Urine Urobilinogen LESS THAN 2.0 MG/DL Urine Leukocyte Esterase NEG Urine RBC LESS THAN 1 /hpf Urine WBC 2 /hpf Urine Squamous Epithelial 2 /hpf Cells Urine Bacteria RARE /hpf Urine Mucus FEW /lpf Microscopic Urinalysis Comment CULT NOT INDICATED MDM Medical Decision Making Medical Screen Exam Complete: Yes Emergency Medical Condition: Yes Medical Record Reviewed: Yes Differential Diagnosis Gastritis versus chronic abdominal pain versus UTI versus pancreatitis Narrative Course 46-year-old female presents to the emergency department for evaluation of abdominal pain for 1-2 days. She reports history of chronic abdominal pain and same symptoms monthly. Patient last had a CT abdomen/pelvis done 1 month ago in the emergency department which showed no acute abnormality. Hemoccult is negative. CBC, CMP, lipase, UA, urine test are ordered and pending. CBC shows hemoglobin 9.6, hematocrit 31.5. This is the patient's baseline. CMP shows no acute abnormality. Lipase is 220. UA shows no acute infection. Urine test is negative. Patient is instructed on need to follow up outpatient with a call or contact centre manager for this chronic abdominal pain. She will be given a prescription for Protonix and Zofran. She is instructed to return for any acute worsening of symptoms. Patient is agreeable. The patient was discharged in stable condition with instructions, including return instructions and follow up instructions. [facility] Point of Care Internal Pos. & Neg. Controls: Passed Fecal Specimen Occult Blood: Negative Diagnosis Primary Impression: Abdominal pain Qualified Code: R10.13 - Epigastric pain Referrals: [employer] call for appointment Primary Care Physician call for appointment Patient Instructions: Abdominal Pain (ED), General Instructions Additional Instructions: Take Protonix as instructed. Take Zofran as instructed as needed for nausea/vomiting. Follow-up with a call or contact centre manager. Return to the emergency department for any acute worsening of symptoms. Med/Other Pt SpecificInfo: Prescription(s) given Scripts Ondansetron Odt (Zofran Odt)4 Mg Tab4 Mg SL Q6HR PRN (Nausea/Vomiting) #16 TAB Ref 0 Prov:Venus Haddad 07/30/16 Pantoprazole (Protonix)20 Mg Tab20 Mg PO DAILY #30 TAB Ref 0 Prov:Venus Haddad 07/30/16 Disposition: 01 DISCHARGE HOME Condition: Stable Venus Haddad Jul 30, 2016 18:53
[2016-07-30 19:22] VITALS: RESP 18; O2SAT 99
[2016-07-30 19:28] VITALS: BP 133/80; PULSE 85; RESP 20; O2SAT 99
[2016-07-30 19:29] LABS: AUTOMATED NEUTROPHIL # 5.1 TH/MM3 (1.8-7.7); BASOPHIL % 0.6 % (0.0-2.0); EOSINOPHIL # 0.1 TH/MM3 (0-0.4); EOSINOPHIL % 1.9 % (0.0-4.0); HEMATOCRIT 31.5 % (35.0-46.0); LYMPH % 17.7 % (9.0-44.0); LYMPHOCYTE # 1.2 TH/MM3 (1.0-4.8); MEAN CELL VOLUME 64.4 FL (80.0-100.0); MEAN CORPUSCULAR HEMOGLOBIN 19.6 PG (27.0-34.0); MEAN CORPUSCULAR HGB CONC 30.4 % (32.0-36.0); MONO % 5.4 % (0.0-8.0); NEUT % 74.4 % (16.0-70.0); PLATELET COUNT 161 TH/MM3 (150-450); RED BLOOD COUNT 4.89 MIL/MM3 (4.00-5.30); RED CELL DISTRIBUTION WIDTH 20.9 % (11.6-17.2); WHITE BLOOD COUNT 6.9 TH/MM3 (4.0-11.0)
[2016-07-30 19:40] LABS: HEMO FLAGS AUTO DIFF
[2016-07-30 19:44] LABS: ANION GAP 5 MEQ/L (5-15); AST (GOT) 18 U/L (15-37); BICARBONATE 29.8 MEQ/L (21.0-32.0); BLOOD UREA NITROGEN 9 MG/DL (7-18); CHLORIDE 102 MEQ/L (98-107); GLOMERULAR FILTRATION RATE 80 ML/MIN (>89); POTASSIUM 3.4 MEQ/L (3.5-5.1); SODIUM (NA) 137 MEQ/L (136-145)
[2016-07-30 19:47] LABS: ALKALINE PHOSPHATASE 87 U/L (45-117); ALT (GPT) 31 U/L (10-53); TOTAL BILIRUBIN ADULT 0.4 MG/DL (0.2-1.0)
[2016-07-30 20:23] LABS: PLATELET ESTIMATE SMEAR NORMAL (NORMAL); PLATELET MORPHOLOGY NORMAL (NORMAL); SCAN/DIFF AUTO DIFF CONFIRMED
[2016-07-30] MEDS ORDERED: LIDOCAINE VISCOUS 2% SOLN 15 ML UDC PO ONE (21:15)
[2016-07-30] MEDS ORDERED: ALUMINUM/MAGNESIUM/SIMETH 30 ML CUP PO ONE (21:15)
[2016-07-30 21:36] LABS: BACTERIA, URINE RARE /hpf; BLOOD, URINE SMALL (NEG); COMMENT (UR) CULT NOT INDICATED; CULTURE IF INDICATED CULT NOT INDICATED; GLUCOSE,URINE NEG (NEG); KETONE, URINE NEG (NEG); MUCUS URINE FEW /lpf (OCC); NITRITE,URINE NEG (NEG); SQUAMOUS EPITHELIAL CELL URINE 2 /hpf (0-5); URINE COLOR YELLOW (YELLW/STRAW)
--- NOTE | 2016-07-30 22:20 | PD ---
Physical Exam Date Seen by Provider: Jul 30, 2016 Narrative Patient is here with vomiting. Data Data Last Documented VS Vital Signs Date Time Temp Pulse Resp B/P Pulse Ox O2 Delivery O2 Flow Rate FiO2 07/30/16 19:28 85 20 133/80 99 Room Air 07/30/16 18:20 98.1 Orders Electrocardiogram (07/30/16 ) Complete Blood Count With Diff (07/30/16 18:45) Comprehensive Metabolic Panel (07/30/16 18:45) Lipase (07/30/16 18:45) Urinalysis - C+S If Indicated (07/30/16 18:45) Iv Access Insert/Monitor (07/30/16 18:45) Ecg Monitoring (07/30/16 18:45) Oximetry (07/30/16 18:45) Ondansetron Inj (Zofran Inj) (07/30/16 18:45) Pantoprazole Inj (Protonix Inj) (07/30/16 18:45) Sodium Chlor 0.9% 1000 Ml Inj (Ns 1000 M (07/30/16 18:45) Sodium Chloride 0.9% Flush (Ns Flush) (07/30/16 18:45) Ed Urine Pregnancytest Poc (07/30/16 18:45) Al-Mag Hy-Si 40-40-4 Mg/Ml Liq (Mag-Al P (07/30/16 21:15) Lidocaine 2% Viscous (Xylocaine 2% Visco (07/30/16 21:15) Labs Laboratory Tests Test 07/30/16 07/30/16 19:00 20:50 White Blood Count 6.9 TH/MM3 Red Blood Count 4.89 MIL/MM3 Hemoglobin 9.6 GM/DL Hematocrit 31.5 % Mean Corpuscular Volume 64.4 FL Mean Corpuscular Hemoglobin 19.6 PG Mean Corpuscular Hemoglobin 30.4 % Concent Red Cell Distribution Width 20.9 % Platelet Count 161 TH/MM3 Mean Platelet Volume 10.9 FL Neutrophils (%) (Auto) 74.4 % Lymphocytes (%) (Auto) 17.7 % Monocytes (%) (Auto) 5.4 % Eosinophils (%) (Auto) 1.9 % Basophils (%) (Auto) 0.6 % Neutrophils # (Auto) 5.1 TH/MM3 Lymphocytes # (Auto) 1.2 TH/MM3 Monocytes # (Auto) 0.4 TH/MM3 Eosinophils # (Auto) 0.1 TH/MM3 Basophils # (Auto) 0.0 TH/MM3 CBC Comment AUTO DIFF Differential Comment AUTO DIFF CONFIRMED Platelet Estimate NORMAL Platelet Morphology Comment NORMAL Sodium Level 137 MEQ/L Potassium Level 3.4 MEQ/L Chloride Level 102 MEQ/L Carbon Dioxide Level 29.8 MEQ/L Anion Gap 5 MEQ/L Blood Urea Nitrogen 9 MG/DL Creatinine 0.78 MG/DL Estimat Glomerular Filtration 80 ML/MIN Rate Random Glucose 90 MG/DL Calcium Level 8.5 MG/DL Total Bilirubin 0.4 MG/DL Aspartate Amino Transf 18 U/L (AST/SGOT) Alanine Aminotransferase 31 U/L (ALT/SGPT) Alkaline Phosphatase 87 U/L Total Protein 8.2 GM/DL Albumin 3.8 GM/DL Lipase 220 U/L Urine Color YELLOW Urine Turbidity CLEAR Urine pH 6.0 Urine Specific [place] 1.018 Urine Protein NEG mg/dL Urine Glucose (UA) NEG mg/dL Urine Ketones NEG mg/dL Urine Occult Blood SMALL Urine Nitrite NEG Urine Bilirubin NEG Urine Urobilinogen LESS THAN 2.0 MG/DL Urine Leukocyte Esterase NEG Urine RBC LESS THAN 1 /hpf Urine WBC 2 /hpf Urine Squamous Epithelial 2 /hpf Cells Urine Bacteria RARE /hpf Urine Mucus FEW /lpf Microscopic Urinalysis Comment CULT NOT INDICATED MDM Supervised Visit with FLORECITA: Yes Narrative Course Patient has had several episodes of loud emesis without the production of very much vomit. CBC & BMP Diagram 07/30/16 19:00 UA is negative. Lissette Tejada MD Jul 30, 2016 22:20
[2016-07-30] MEDS ORDERED: PANT20 PO (22:24)
[2016-07-30] MEDS ORDERED: ZOFR4TAB3 SL (22:24)
--- NOTE | 2016-07-31 14:52 | EKG ---
Date Performed: 07/30/2016 Time Performed: 19:04:04 PTAGE: 46 years EKG: Sinus rhythm Since previous tracing, no significant change noted NORMAL ECG PREVIOUS TRACING : 06/27/2016 23.43 DOCTOR: Bubba Hopson Interpretating Date/Time 07/31/2016 15:41:00
== END 2016-07-30 22:58 | disposition home or self-care (01) ==
LOC: NEPC 18:17
DX: R10.13 Epigastric pain (principal); R11.2 Nausea with vomiting, unspecified; R19.7 Diarrhea, unspecified; E11.9 Type 2 diabetes mellitus without complications; Z79.01 Long term (current) use of anticoagulants; Z79.4 Long term (current) use of insulin; Z87.19 Personal history of other diseases of the digestive system; Z86.2 Personal history of diseases of the blood and blood-forming organs and certain disorders involving the immune mechanism; Z87.09 Personal history of other diseases of the respiratory system; Z87.39 Personal history of other diseases of the musculoskeletal system and connective tissue; Z86.59 Personal history of other mental and behavioral disorders; Z86.79 Personal history of other diseases of the circulatory system; Z86.73 Personal history of transient ischemic attack (TIA), and cerebral infarction without residual deficits
CPT/HCPCS: 80053; 81001; 83690; 84703; 85025; 93005; 96361; 96374; 96375; 99284; C9113; J2405; J7030

== ENCOUNTER 2016-08-09 20:03 | Observation (INO) | payer MEDICAID, OTHER ==
[~2016-08-09] VITALS: Ht 157.5 cm; Wt 90.0 kg
[~2016-08-09 20:03] MED LIST changes: -BACT800T5 PO; -OSEL75 PO; -TYLETAB34 PO; +ZOFR4TAB3 SL
[2016-08-09 20:05] VITALS: PULSE 110; RESP 28; TEMP 98; O2SAT 98
[2016-08-09] MEDS ORDERED: SODIUM CHLOR 0.9% 1000 ML INJ 1,000 ML IV SCH (20:12)
[2016-08-09] MEDS ORDERED: methylPREDNISolone SOD SUCC 125 MG/2 ML VIAL ONE (20:14)
[2016-08-09] MEDS ORDERED: FAMOTIDINE 20 MG/2 ML VIAL IV PUSH ONE (20:15)
[2016-08-09] MEDS ORDERED: methylPREDNISolone SOD SUCC 125 MG/2 ML VIAL IVP ONE (20:15)
[2016-08-09] MEDS ORDERED: SODIUM CHLORIDE 0.9% FLUSH 5 ML FLUSH IVF PRN (20:15)
[2016-08-09 20:16] VITALS: BP 171/92; PULSE 95; RESP 30; TEMP 97.9; O2SAT 95
[2016-08-09 20:19] VITALS: O2SAT 99
[2016-08-09 20:25] VITALS: BP 167/74; PULSE 90; RESP 32; O2SAT 100
[2016-08-09] MEDS ORDERED: EPINEPHrine HCL (1:1000) 1 MG/ML VIAL IM ONE (20:30)
[2016-08-09] MEDS: RESP: ALBUTEROL 2.5 MG/3 ML NEB (SCH) INH ×2 (20:33→20:34)
--- NOTE | 2016-08-09 20:44 | PD ---
HPI Chief Complaint: Allergic/Adverse Reaction Time Seen by Provider: 20:25 Travel History International Travel<30 days: No Contact w/Intl Traveler<30days: No Traveled to known affect area: No History of Present Illness HPI Patient is a 46-year-old female presented to the emergency department for evaluation of a possible allergic reaction. Patient states she ate some type of white fish approximately 1 PM this afternoon, after that she felt her throat closing but tried to wait it out at home. At 7 PM she stated that she became more short of breath, started sneezing, coughing, with epigastric abdominal pain. Patient reports a history of ulcers, gastritis, hypertension, lupus, asthma. Patient did not take any Benadryl or similar medication at home prior to coming in. She not have an EpiPen at home. PFSH Past Medical History Hx Anticoagulant Therapy: Yes Asthma: Yes Autoimmune Disease: Yes (LUPUS) Anxiety: Yes Cardiovascular Problems: Yes Cerebrovascular Accident: Yes (TIA) Diabetes: Yes Patient Takes Glucophage: No Diminished Hearing: No Fibromyalgia: Yes GERD: Yes Respiratory: Yes (ASTHMA) Immunizations Current: Yes Tetanus Vaccination: < 5 Years ?: Not LMP: 07/13/2015 : 2 Para: 2 Past Surgical History Section: Yes Cholecystectomy: Yes Other Surgery: Yes (tendonitis) Social History Alcohol Use: No Tobacco Use: No Substance Use: No Allergies-Medications (Allergen,Severity, Reaction): Coded Allergies: Iodine (Verified Allergy, Severe, Anaphylaxis, 08/09/16) Shellfish (Verified Allergy, Severe, Anaphylaxis, 08/09/16) Theophylline (Verified Allergy, Severe, Anaphylaxis, 08/09/16) Benadryl (Verified Allergy, Intermediate, palpitations, 08/10/16) Naprosyn (Verified Allergy, Intermediate, Rash, 08/09/16) Penicillin (Verified Allergy, Intermediate, RASH, 08/09/16) Broccoli (Verified Allergy, Unknown, 08/09/16) Imuran (Verified Allergy, Unknown, 08/09/16) Keflex (Verified Allergy, Unknown, 08/09/16) Motrin (Verified Adverse Reaction, Mild, LUPUS, 08/09/16) Uncoded Allergies: AMRNOHILSON (Allergy, Severe, 12/16/15) .. Eggplant (Allergy, Unknown, 04/23/16) Reported Meds & Prescriptions Reported Meds & Active Scripts Active Zofran Odt (Ondansetron Odt) 4 Mg Tab 4 Mg SL Q6HR PRN Phenergan (Promethazine HCl) 25 Mg Tab 25 Mg PO Q6H PRN Protonix (Pantoprazole Sodium) 20 Mg Tab 20 Mg PO DAILY Gabapentin 600 Mg Tab 600 Mg PO TID Meloxicam 15 Mg Tab 15 Mg PO DAILY Reported Novolin R Inj (Insulin Human Regular) 1,000 Unit/10 Ml Vial 0 SQ DIRECTED Sliding Scale As Directed. Plaquenil (Hydroxychloroquine Sulfate) 200 Mg Tab 200 Mg PO BID Take with food Glucotrol (Glipizide) 5 Mg Tab 5 Mg PO DAILY Take 30 minutes before a meal Flovent Hfa 12 GM Inh (Fluticasone Propionate) 110 Mcg/Act Inh 1 Puff INH BID Pulmicort Respules (Budesonide) 0.25 Mg/2 Ml Neb 0.25 Mg NEB Q12HR Ventolin Hfa 18 GM Inh (Albuterol Sulfate) 90 Mcg/Act Aer 2 Puff INH Q4H PRN Review of Systems Except as stated in HPI: all other systems reviewed are Neg General / Constitutional: No: Fever HENT: No: Headaches, Lightheadedness, Sore Throat Cardiovascular: No: Chest Pain or Discomfort Respiratory: Positive: Cough, Shortness of Breath, Wheezing, No: Stridor Gastrointestinal: Positive: Abdominal Pain (epigastric), No: Nausea, Vomiting Skin: No Itching, No Hives Neurologic: No: Dizziness, Focal Abnormalities Physical Exam Narrative GENERAL: Overweight, well-developed, alert female. Appears anxious, in no acute distress. SKIN: Warm and dry. HEAD: Atraumatic. Normocephalic. EYES: Pupils equal and round. No scleral icterus. No injection or drainage. ENT: No nasal bleeding or discharge. Mucous membranes pink and moist. NECK: Trachea midline. No JVD. CARDIOVASCULAR: Regular rate and rhythm. No murmur appreciated. RESPIRATORY: Tachypneic, scattered expiratory wheezing. GASTROINTESTINAL: Abdomen soft, mildly tender in epigastric region., nondistended. Hepatic and splenic margins not palpable. MUSCULOSKELETAL: No obvious deformities. No clubbing. No cyanosis. No edema. NEUROLOGICAL: Awake and alert. No obvious cranial nerve deficits. Motor grossly within normal limits. Normal speech. PSYCHIATRIC: Anxious mood and affect; insight and judgment normal. Data Data Last Documented VS Vital Signs Date Time Temp Pulse Resp B/P Pulse Ox O2 Delivery O2 Flow Rate FiO2 08/09/16 22:06 118 26 165/78 98 Nasal Cannula 2 08/09/16 20:16 97.9 Orders Complete Blood Count With Diff (08/09/16 20:12) Comprehensive Metabolic Panel (08/09/16 20:12) Ecg Monitoring (08/09/16 20:12) Iv Access Insert/Monitor (08/09/16 20:12) Oximetry (08/09/16 20:12) Methylprednisolone So Succ Inj (Solumedr (08/09/16 20:15) Famotidine Inj (Pepcid Inj) (08/09/16 20:15) Sodium Chlor 0.9% 1000 Ml Inj (Ns 1000 M (08/09/16 20:12) Sodium Chloride 0.9% Flush (Ns Flush) (08/09/16 20:15) Methylprednisolone So Succ Inj (Solumedr (08/09/16 20:14) Albuterol Neb (Albuterol Neb) (08/09/16 20:30) Epinephrine (1:1000) Inj (Adrenalin (1:1 (08/09/16 20:30) Chest, Single Ap (08/09/16 ) Lorazepam Inj (Ativan Inj) (08/09/16 21:00) Lorazepam Inj (Ativan Inj) (08/09/16 20:49) Electrocardiogram (08/09/16 20:21) Sodium Chlor 0.9% 1000 Ml Inj (Ns 1000 M (08/09/16 21:45) Admit Order (Ed Use Only) (08/09/16 22:36) Labs Laboratory Tests Test 08/09/16 20:30 White Blood Count 7.5 TH/MM3 Red Blood Count 4.87 MIL/MM3 Hemoglobin 9.5 GM/DL Hematocrit 30.7 % Mean Corpuscular Volume 63.1 FL Mean Corpuscular Hemoglobin 19.6 PG Mean Corpuscular Hemoglobin 31.0 % Concent Red Cell Distribution Width 20.9 % Platelet Count 178 TH/MM3 Mean Platelet Volume 11.2 FL Neutrophils (%) (Auto) 59.4 % Lymphocytes (%) (Auto) 28.4 % Monocytes (%) (Auto) 8.5 % Eosinophils (%) (Auto) 3.0 % Basophils (%) (Auto) 0.7 % Neutrophils # (Auto) 4.4 TH/MM3 Lymphocytes # (Auto) 2.1 TH/MM3 Monocytes # (Auto) 0.6 TH/MM3 Eosinophils # (Auto) 0.2 TH/MM3 Basophils # (Auto) 0.6 TH/MM3 CBC Comment AUTO DIFF Differential Comment AUTO DIFF CONFIRMED Platelet Estimate NORMAL Platelet Morphology Comment NORMAL Ovalocytes 2+ Sodium Level 138 MEQ/L Potassium Level 3.7 MEQ/L Chloride Level 100 MEQ/L Carbon Dioxide Level 26.5 MEQ/L Anion Gap 12 MEQ/L Blood Urea Nitrogen 8 MG/DL Creatinine 0.85 MG/DL Estimat Glomerular Filtration 72 ML/MIN Rate Random Glucose 93 MG/DL Calcium Level 8.9 MG/DL Total Bilirubin 0.2 MG/DL Aspartate Amino Transf 19 U/L (AST/SGOT) Alanine Aminotransferase 33 U/L (ALT/SGPT) Alkaline Phosphatase 84 U/L Total Protein 8.5 GM/DL Albumin 3.9 GM/DL Troponin I LESS THAN 0.02 NG/ML MDM Medical Decision Making Medical Screen Exam Complete: Yes Emergency Medical Condition: Yes Interpretation(s) Vital Signs Date Time Temp Pulse Resp B/P Pulse Ox O2 Delivery O2 Flow Rate FiO2 08/09/16 20:26 90 32 99 Nasal Cannula 2 08/09/16 20:25 90 32 167/74 100 Nasal Cannula 2 08/09/16 20:19 99 Nasal Cannula 2 08/09/16 20:16 97.9 95 30 171/92 95 08/09/16 20:05 98.0 110 28 98 Differential Diagnosis Allergic reaction versus asthma exacerbation versus anaphylaxis versus anxiety versus other Narrative Course Patient is a 46-year-old female presenting to emergency for evaluation of a possible allergic reaction after eating fish at approximately 1 PM this afternoon. Patient did not present with her symptoms for over 6 hours. Patient is well oxygenated on room air, her vital signs are stable. EKG shows normal sinus rhythm with a rate of 95. Chest x-ray, medications, DuoNeb is ordered and pending. at bedside. Patient given epinephrine IM, Solu-Medrol IV, famotidine. Chest x-ray shows no acute disease Patient continued to appear anxious, she was given Ativan IV. Patient was reassessed, she continues to have expiratory wheezing throughout, her heart rate is elevated possibly secondary to anxiety, nebulizer treatments or epinephrine. However due to continuing to be symptomatic, it is recommended patient be placed under observation. Dr. Brown accepted admission. Diagnosis Primary Impression: Allergic reaction Qualified Code: T78.40XA - Allergic reaction, initial encounter Additional Impression: Asthma exacerbation Admitting Information Admitting Physician Requests: Observation Condition: Stable Maite Gates Aug 09, 2016 20:44
[2016-08-09] MEDS ORDERED: LORazepam 2 MG/ML VIAL ONE (20:49)
[2016-08-09 21:00] LABS: EOSINOPHIL # 0.2 TH/MM3 (0-0.4); LYMPHOCYTE # 2.1 TH/MM3 (1.0-4.8); MEAN CORPUSCULAR HEMOGLOBIN 19.6 PG (27.0-34.0); PLATELET COUNT 178 TH/MM3 (150-450); WHITE BLOOD COUNT 7.5 TH/MM3 (4.0-11.0)
[2016-08-09] MEDS ORDERED: LORazepam 2 MG/ML VIAL IV PUSH ONE (21:00)
[2016-08-09 21:03] LABS: HEMATOCRIT 30.7 % (35.0-46.0); HEMO FLAGS AUTO DIFF; LYMPH % 28.4 % (9.0-44.0); MEAN CELL VOLUME 63.1 FL (80.0-100.0); NEUT % 59.4 % (16.0-70.0); RED BLOOD COUNT 4.87 MIL/MM3 (4.00-5.30); RED CELL DISTRIBUTION WIDTH 20.9 % (11.6-17.2)
[2016-08-09 21:04] LABS: AUTOMATED NEUTROPHIL # 4.4 TH/MM3 (1.8-7.7); BASOPHIL # 0.6 TH/MM3 (0-0.2); BASOPHIL % 0.7 % (0.0-2.0); MONO % 8.5 % (0.0-8.0)
[2016-08-09 21:17] LABS: ANION GAP 12 MEQ/L (5-15); AST (GOT) 19 U/L (15-37); BICARBONATE 26.5 MEQ/L (21.0-32.0); BLOOD UREA NITROGEN 8 MG/DL (7-18); CHLORIDE 100 MEQ/L (98-107); GLOMERULAR FILTRATION RATE 72 ML/MIN (>89); POTASSIUM 3.7 MEQ/L (3.5-5.1); SODIUM (NA) 138 MEQ/L (136-145)
[2016-08-09 21:21] LABS: ALKALINE PHOSPHATASE 84 U/L (45-117); ALT (GPT) 33 U/L (10-53); TOTAL BILIRUBIN ADULT 0.2 MG/DL (0.2-1.0)
[2016-08-09 21:29] LABS: OVALOCYTES 2+ (NORMAL); PLATELET ESTIMATE SMEAR NORMAL (NORMAL); PLATELET MORPHOLOGY NORMAL (NORMAL); SCAN/DIFF AUTO DIFF CONFIRMED
--- NOTE | 2016-08-09 21:29 | RADRPT ---
EXAM DATE/TIME: 08/09/2016 20:42 [facility] COMPARISON: CHEST SINGLE AP, April 06, 2016, 1:47. INDICATIONS : Difficulty breath and short of breath. MEDICAL HISTORY : Cardiovascular disease. CVA. Fibromyalgia. SURGICAL HISTORY : Cholecystectomy. section. ENCOUNTER: Initial ACUITY: 1 day PAIN SCORE: 0/10 LOCATION: Bilateral chest FINDINGS: A single view of the chest demonstrates the lungs to be symmetrically aerated without evidence of mas s, infiltrate or effusion. The cardiomediastinal contours are unremarkable. Osseous structures are intact. CONCLUSION: No acute disease. Jareth Lovelace MD on August 09, 2016 at 21:28 Board Certified Radiologist. This report was verified electronically.
--- NOTE | 2016-08-09 21:42 | PD ---
Physical Exam Narrative General: The patient is a well-developed well-nourished female, anxious appearing on examination although O2 saturations on room air were 99-100%. Head and Neck exam: Head is normocephalic atraumatic. Eyes: Pupils are equal round and reactive to light. Nose: Midline septum with pink mucous membranes Mouth: Dentition unremarkable. Moist mucus membranes. Posterior oropharynx is not erythematous. No tonsillar hypertrophy. Uvula midline. Airway patent. No visible tongue or throat swelling. Neck: No palpable lymphadenopathy. No nuchal rigidity. No thyromegaly. Cardiovascular: Sinus tachycardia in the low 100 without murmurs, gallops, or rubs. No pulse deficit to the extremities since I'm obtaining is auscultation and palpation of her radial artery. Lungs: Soft expiratory wheezes are audible in posterior lung reeder area no rhonchi, no crackles. Abdomen: Soft, without tenderness to palpation in all 4 quadrants of the abdomen. No guarding, rebound, or rigidity. Normal bowel sounds are audible. Extremities: No clubbing, cyanosis, or edema. 2+ pulses in all 4 extremities. No calf tenderness on palpation. Back: No costovertebral angle tenderness to palpation. Neurologic Exam: Grossly nonfocal. Skin Exam: No rash noted. Intact skin that is warm and dry. Data Data Last Documented VS Vital Signs Date Time Temp Pulse Resp B/P Pulse Ox O2 Delivery O2 Flow Rate FiO2 08/09/16 22:06 118 26 165/78 98 Nasal Cannula 2 08/09/16 20:16 97.9 Orders Complete Blood Count With Diff (08/09/16 20:12) Comprehensive Metabolic Panel (08/09/16 20:12) Ecg Monitoring (08/09/16 20:12) Iv Access Insert/Monitor (08/09/16 20:12) Oximetry (08/09/16 20:12) Methylprednisolone So Succ Inj (Solumedr (08/09/16 20:15) Famotidine Inj (Pepcid Inj) (08/09/16 20:15) Sodium Chlor 0.9% 1000 Ml Inj (Ns 1000 M (08/09/16 20:12) Sodium Chloride 0.9% Flush (Ns Flush) (08/09/16 20:15) Methylprednisolone So Succ Inj (Solumedr (08/09/16 20:14) Albuterol Neb (Albuterol Neb) (08/09/16 20:30) Epinephrine (1:1000) Inj (Adrenalin (1:1 (08/09/16 20:30) Chest, Single Ap (08/09/16 ) Lorazepam Inj (Ativan Inj) (08/09/16 21:00) Lorazepam Inj (Ativan Inj) (08/09/16 20:49) Electrocardiogram (08/09/16 20:21) Sodium Chlor 0.9% 1000 Ml Inj (Ns 1000 M (08/09/16 21:45) Admit Order (Ed Use Only) (08/09/16 22:36) Labs Laboratory Tests Test 08/09/16 20:30 White Blood Count 7.5 TH/MM3 Red Blood Count 4.87 MIL/MM3 Hemoglobin 9.5 GM/DL Hematocrit 30.7 % Mean Corpuscular Volume 63.1 FL Mean Corpuscular Hemoglobin 19.6 PG Mean Corpuscular Hemoglobin 31.0 % Concent Red Cell Distribution Width 20.9 % Platelet Count 178 TH/MM3 Mean Platelet Volume 11.2 FL Neutrophils (%) (Auto) 59.4 % Lymphocytes (%) (Auto) 28.4 % Monocytes (%) (Auto) 8.5 % Eosinophils (%) (Auto) 3.0 % Basophils (%) (Auto) 0.7 % Neutrophils # (Auto) 4.4 TH/MM3 Lymphocytes # (Auto) 2.1 TH/MM3 Monocytes # (Auto) 0.6 TH/MM3 Eosinophils # (Auto) 0.2 TH/MM3 Basophils # (Auto) 0.6 TH/MM3 CBC Comment AUTO DIFF Differential Comment AUTO DIFF CONFIRMED Platelet Estimate NORMAL Platelet Morphology Comment NORMAL Ovalocytes 2+ Sodium Level 138 MEQ/L Potassium Level 3.7 MEQ/L Chloride Level 100 MEQ/L Carbon Dioxide Level 26.5 MEQ/L Anion Gap 12 MEQ/L Blood Urea Nitrogen 8 MG/DL Creatinine 0.85 MG/DL Estimat Glomerular Filtration 72 ML/MIN Rate Random Glucose 93 MG/DL Calcium Level 8.9 MG/DL Total Bilirubin 0.2 MG/DL Aspartate Amino Transf 19 U/L (AST/SGOT) Alanine Aminotransferase 33 U/L (ALT/SGPT) Alkaline Phosphatase 84 U/L Total Protein 8.5 GM/DL Albumin 3.9 GM/DL Troponin I LESS THAN 0.02 NG/ML MDM Medical Record Reviewed: Yes Supervised Visit with FLORECITA: Yes Narrative Course I, Dr. Thompson, have reviewed the advance practice practitioner's documentation and am in agreement, met with the patient face to face, made the diagnosis, and the medical decision making was done by me. The patient was initially by Maite, the nurse practitioner. Please see her complete history and physical. *My assessment and Findings: The patient is a 46-year-old female with a history of reportedly going out to eat and having fried fish at 1:30 PM today. She reports that approximately 10 minutes after eating a fried fish began to have a tingling sensation in the back of her throat similar to when she's had a reaction to shellfish. She reports that she became concerned that the fried fish was cross contaminated with shellfish. She continued to monitor her symptoms and had it she watery eyes, nasal congestion, progression to shortness of breath, chest tightness, wheezing, and a sensation that her throat was closing. The patient denies taking any medications for this prior to arrival. She denies having an EpiPen. She reports that initially she just tried to ignore the symptoms and went to corn picker her kids from school and make dinner, however the symptoms were getting much worse that she was brought in by her . The patient's examination is remarkable for expiratory wheezes that are audible posteriorly. No tongue or throat swelling. Given the patient's continued symptoms the patient will be admitted to the hospital for continued treatment. The patients results were discussed with the patient, including the plan of care. I explained that further testing and/ or monitoring is indicated based on the patients history, examination, and/ or laboratory findings. Therefore, I recommended admission for additional evaluation. The patient expressed understanding and was agreeable with this plan. The patient was admitted to the hospital in stable condition and sent to a bed under the care of the [facility]. Diagnosis Primary Impression: Allergic reaction Qualified Code: T78.40XA - Allergic reaction, initial encounter Edilma Thompson MD Aug 09, 2016 21:42
[2016-08-09] MEDS ORDERED: SODIUM CHLOR 0.9% 1000 ML INJ 1,000 ML IV ONE (21:45)
[2016-08-09 22:06] VITALS: BP 165/78; PULSE 118; RESP 26; O2SAT 98
[2016-08-09] MEDS ORDERED: SODIUM CHLORIDE 0.9% FLUSH 5 ML FLUSH FLUSH PRN (22:45)
[2016-08-09] MEDS ORDERED: NALOXONE HCL 0.4 MG/ML AMP IV PRN (22:45)
[2016-08-09] MEDS ORDERED: ONDANSETRON HCL 4 MG/2 ML VIAL ONE (22:54)
[2016-08-09] MEDS ORDERED: ONDANSETRON HCL 4 MG/2 ML VIAL IV ONE (23:00)
[2016-08-10] VITALS (8 sets, daily range): BP systolic 131–159; BP diastolic 74–90; PULSE 68–118; RESP 16–20; TEMP 97.2–98.8; O2SAT 94–98
--- NOTE | 2016-08-10 00:39 | HHI.HP ---
[facility] Bubba Reddy MD Admission Diagnosis allergic reaction Diagnoses: Chief Complaint: Allergic reaction to fish Travel History International Travel<30 Days: No Contact w/Intl Traveler <30 Da: No Traveled to Known Affected Are: No History of Present Illness History taken from patient and ED physician. 46-year-old female history of diabetes, asthma, htn, and lupus presented with an allergic reaction after eating fish. Patient states she was at a restaurant with her and she was eating fish at about 2pm. She began to fell very itchy, chest tightening and stomach cramping. She then proceeded to go home and while at home she began to have worsening symptoms. She felt her throat was swelling, increased headaches, shortness of breath and anxiety. She states she felt like she was not getting enough oxygen. She is allergic to shellfish and is unsure if the food was cross contaminated. She denies any fever or chills. Review of Systems Constitutional: DENIES: Fever, Chills Respiratory: COMPLAINS OF: Shortness of breath, DENIES: Cough, Sputum production Cardiovascular: COMPLAINS OF: Chest pain, DENIES: Lower Extremity Edema Gastrointestinal: COMPLAINS OF: Abdominal pain, DENIES: Constipation, Diarrhea , Nausea, Vomiting Musculoskeletal: DENIES: Back pain, Neck pain Integumentary: DENIES: Rash Hematologic/lymphatic: DENIES: Lymphadenopathy Immunologic/allergic: DENIES: Urticaria Neurologic: DENIES: Headache Past Family Social History Past Medical History Diabetes HTN Asthma Lupus Fibromyalgia Past Surgical History cholecystectomy C Section x2 Right hand tendon repair Reported Medications Reported Meds & Active Scripts Active Zofran Odt (Ondansetron Odt) 4 Mg Tab 4 Mg SL Q6HR PRN Phenergan (Promethazine HCl) 25 Mg Tab 25 Mg PO Q6H PRN Protonix (Pantoprazole Sodium) 20 Mg Tab 20 Mg PO DAILY Gabapentin 600 Mg Tab 600 Mg PO TID Meloxicam 15 Mg Tab 15 Mg PO DAILY Reported Novolin R Inj (Insulin Human Regular) 1,000 Unit/10 Ml Vial 0 SQ DIRECTED Sliding Scale As Directed. Plaquenil (Hydroxychloroquine Sulfate) 200 Mg Tab 200 Mg PO BID Take with food Glucotrol (Glipizide) 5 Mg Tab 5 Mg PO DAILY Take 30 minutes before a meal Flovent Hfa 12 GM Inh (Fluticasone Propionate) 110 Mcg/Act Inh 1 Puff INH BID Pulmicort Respules (Budesonide) 0.25 Mg/2 Ml Neb 0.25 Mg NEB Q12HR Ventolin Hfa 18 GM Inh (Albuterol Sulfate) 90 Mcg/Act Aer 2 Puff INH Q4H PRN Allergies: Coded Allergies: Iodine (Verified Allergy, Severe, Anaphylaxis, 08/09/16) Shellfish (Verified Allergy, Severe, Anaphylaxis, 08/09/16) Theophylline (Verified Allergy, Severe, Anaphylaxis, 08/09/16) Benadryl (Verified Allergy, Intermediate, palpitations, 08/10/16) Naprosyn (Verified Allergy, Intermediate, Rash, 08/09/16) Penicillin (Verified Allergy, Intermediate, RASH, 08/09/16) Broccoli (Verified Allergy, Unknown, 08/09/16) Imuran (Verified Allergy, Unknown, 08/09/16) Keflex (Verified Allergy, Unknown, 08/09/16) Motrin (Verified Adverse Reaction, Mild, LUPUS, 08/09/16) Uncoded Allergies: AMRNOHILSON (Allergy, Severe, 12/16/15) .. Eggplant (Allergy, Unknown, 04/23/16) Active Ordered Medications Current Medications Medications (Trade) Dose Ordered Sig/Viviane Route Start Time Stop Time Status Last Admin (NS Flush) 2 ml UNSCH PRN FLUSH 08/09/16 22:45 (NS Flush) 2 ml BID FLUSH 08/10/16 09:00 (Narcan Inj) 0.4 mg UNSCH PRN IV 08/09/16 22:45 Family History Father: Cirrhosis, DM Mom: DM, asthma Grandfather: dyslipidemia, HTN Social History Tobacco use: Denies Alcohol use: Denies Illicit drug use: Denies Physical Exam Vital Signs Vital Signs Date Time Temp Pulse Resp B/P Pulse Ox O2 Delivery O2 Flow Rate FiO2 08/10/16 00:21 97.2 118 18 159/78 97 08/09/16 22:06 118 26 165/78 98 Nasal Cannula 2 08/09/16 20:26 90 32 99 Nasal Cannula 2 08/09/16 20:25 90 32 167/74 100 Nasal Cannula 2 08/09/16 20:19 99 Nasal Cannula 2 08/09/16 20:16 97.9 95 30 171/92 95 08/09/16 20:05 98.0 110 28 98 Physical Exam GENERAL: This is a well-nourished, well-developed patient, who is very anxious SKIN: No rashes, ecchymoses or lesions. Cool and dry. HEAD: Atraumatic. Normocephalic. EYES: Pupils equal round and reactive. Extraocular motions intact. No scleral icterus. No injection or drainage. ENT: Nose without bleeding, purulent drainage or septal hematoma. Airway patent. NECK: Trachea midline. No JVD or lymphadenopathy. CARDIOVASCULAR: Regular rate and rhythm without murmurs, gallops, or rubs. RESPIRATORY: Clear to auscultation. Breath sounds equal bilaterally. No wheezes , rales, or rhonchi. GASTROINTESTINAL: Abdomen soft, non-tender, nondistended. No guarding. MUSCULOSKELETAL: Extremities without clubbing, cyanosis, or edema. No joint tenderness, effusion, or edema noted. No calf tenderness. NEUROLOGICAL: Awake, alert and anxious. . Motor and sensory grossly within normal limits. Normal speech. Laboratory Laboratory Tests Test 08/09/16 20:30 White Blood Count 7.5 Red Blood Count 4.87 Hemoglobin 9.5 Hematocrit 30.7 Mean Corpuscular Volume 63.1 Mean Corpuscular Hemoglobin 19.6 Mean Corpuscular Hemoglobin 31.0 Concent Red Cell Distribution Width 20.9 Platelet Count 178 Mean Platelet Volume 11.2 Neutrophils (%) (Auto) 59.4 Lymphocytes (%) (Auto) 28.4 Monocytes (%) (Auto) 8.5 Eosinophils (%) (Auto) 3.0 Basophils (%) (Auto) 0.7 Neutrophils # (Auto) 4.4 Lymphocytes # (Auto) 2.1 Monocytes # (Auto) 0.6 Eosinophils # (Auto) 0.2 Basophils # (Auto) 0.6 CBC Comment AUTO DIFF Differential Comment AUTO DIFF CONFIRMED Platelet Estimate NORMAL Platelet Morphology Comment NORMAL Ovalocytes 2+ Sodium Level 138 Potassium Level 3.7 Chloride Level 100 Carbon Dioxide Level 26.5 Anion Gap 12 Blood Urea Nitrogen 8 Creatinine 0.85 Estimat Glomerular Filtration 72 Rate Random Glucose 93 Calcium Level 8.9 Total Bilirubin 0.2 Aspartate Amino Transf 19 (AST/SGOT) Alanine Aminotransferase 33 (ALT/SGPT) Alkaline Phosphatase 84 Total Protein 8.5 Albumin 3.9 Result Diagram: 08/09/16202908/09/162029 Imaging Last Impressions Chest X-Ray 08/09/16 0000 Signed Impressions: Service Date/Time: Tuesday, August 09, 2016 20:42 - CONCLUSION: No acute disease. Jareth Lovelace MD Assessment and Plan Problem List: (1) Allergic reaction ICD Code: T78.40XA Status: Acute (2) Chest tightness or pressure ICD Code: R07.89 Status: Acute (3) Diabetes ICD Code: E11.9 Status: Chronic (4) HTN (hypertension) ICD Code: I10 Status: Chronic Assessment and Plan 46-year-old female with a history of diabetes, asthma, and lupus presented with Allergic reaction -Solumedrol and Epi given in ED -Monitor for increased shortness of breath Chest tightening/ pressure Labs: First troponin 0.02 -Serial troponin ordered -Protonix IV -Monitor telemetry Diabetes, chronic -ACCU checks -Diabetic diet DVT prophylaxis: Lovenox Written by Paula LITTLE, acting as scribe for Dr. Brown on 08/10/16 at 0220. The documentation accurately reflects the work performed [id number] and decisions made by me and the physician Dr Brown on 08/10/16. The documentation accurately reflects the work performed [id number] by me on at 0220 Discussed Condition With Patient and ED physician Problem Qualifiers (1) Allergic reaction: Qualified Code: T78.40XA - Allergic reaction, initial encounter (2) HTN (hypertension): Qualified Code: I10 - Essential hypertension Paula Keenan Aug 10, 2016 00:39 Chi Brown MD Aug 11, 2016 08:24
[2016-08-10] MEDS ORDERED: DEXTROSE 50% IN WATER 50 ML VIAL(D50) IV PUSH PRN ×2 (02:45→08:30)
[2016-08-10] MEDS ORDERED: GLUCAGON 1 MG/ML VIAL OTHER PRN ×2 (02:45→08:30)
[2016-08-10] MEDS ORDERED: PANTOPRAZOLE SODIUM 40 MG VIAL IV PUSH SCH (03:00)
[2016-08-10 03:32] LABS: AUTOMATED NEUTROPHIL # 8.2 TH/MM3 (1.8-7.7); BASOPHIL % 0.2 % (0.0-2.0); HEMATOCRIT 27.8 % (35.0-46.0); LYMPH % 4.8 % (9.0-44.0); LYMPHOCYTE # 0.4 TH/MM3 (1.0-4.8); MEAN CELL VOLUME 63.3 FL (80.0-100.0); MEAN CORPUSCULAR HEMOGLOBIN 19.9 PG (27.0-34.0); MEAN CORPUSCULAR HGB CONC 31.5 % (32.0-36.0); MONO % 0.4 % (0.0-8.0); NEUT % 94.6 % (16.0-70.0); PLATELET COUNT 141 TH/MM3 (150-450); RED BLOOD COUNT 4.39 MIL/MM3 (4.00-5.30); RED CELL DISTRIBUTION WIDTH 20.2 % (11.6-17.2); WHITE BLOOD COUNT 8.7 TH/MM3 (4.0-11.0)
[2016-08-10 03:42] LABS: HEMO FLAGS AUTO DIFF
[2016-08-10 03:51] LABS: ANION GAP 13 MEQ/L (5-15); BICARBONATE 22.3 MEQ/L (21.0-32.0); BLOOD UREA NITROGEN 7 MG/DL (7-18); CHLORIDE 105 MEQ/L (98-107); GLOMERULAR FILTRATION RATE 69 ML/MIN (>89); POTASSIUM 3.6 MEQ/L (3.5-5.1); SODIUM (NA) 140 MEQ/L (136-145)
[2016-08-10 05:55] LABS: PLATELET ESTIMATE SMEAR LOW (NORMAL); PLATELET MORPHOLOGY ENLARGED (NORMAL); SCAN/DIFF AUTO DIFF CONFIRMED
[2016-08-10 05:56] LABS: OVALOCYTES 1+ (NORMAL)
[2016-08-10] MEDS ORDERED: EPINEPHrine HCL (1:1000) 1 MG/ML VIAL SQ PRN (07:30)
[2016-08-10] MEDS ORDERED: PROMETHAZINE HCL 25 MG TAB PO PRN (08:30)
--- NOTE | 2016-08-10 08:36 | HHI.PR ---
Subjective Remarks Follow-up for allergic reaction. The patient continues to complain of anterior chest discomfort. She feels like her chest is tight, feels like it is related to her asthma. She states the lip and throat swelling have improved since admission. She still feels that she is having problems swallowing. She doesn' t feel any airway constriction. She is extremely anxious and feels fair heart is racing. She cannot take Benadryl because it gives her palpitations. Objective Vitals Vital Signs Date Time Temp Pulse Resp B/P Pulse Ox O2 Delivery O2 Flow Rate FiO2 08/10/16 07:45 97.2 97 20 159/90 98 08/10/16 03:36 105 08/10/16 00:21 97.2 118 18 159/78 97 08/09/16 22:06 118 26 165/78 98 Nasal Cannula 2 08/09/16 20:26 90 32 99 Nasal Cannula 2 08/09/16 20:25 90 32 167/74 100 Nasal Cannula 2 08/09/16 20:19 99 Nasal Cannula 2 08/09/16 20:16 97.9 95 30 171/92 95 08/09/16 20:05 98.0 110 28 98 I/O 08/09/16 08/09/16 08/09/16 08/10/16 08/10/16 08/10/16 06:59 14:59 22:59 06:59 14:59 22:59 Intake Total 120 ml Output Total 550 ml Balance -550 ml 120 ml Intake Oral 120 ml Output Urine Total 550 ml # Voids 1 Result Diagram: 08/10/168 08/10/168 Imaging Last Impressions Chest X-Ray 08/09/16 0000 Signed Impressions: Service Date/Time: Tuesday, August 09, 2016 20:42 - CONCLUSION: No acute disease. Jareth Lovelace MD Objective Remarks GENERAL: Well-developed well-nourished. In no acute distress. SKIN: Warm and dry. No lesions noted. HEENT: Normocephalic. Pupils equal and round. Mucous membranes pink and moist. Airway patent. No lip or tongue swelling noted. CARDIOVASCULAR: Regular rate and rhythm. No murmur appreciated. RESPIRATORY: No accessory muscle use. Clear to auscultation. Breath sounds equal bilaterally. No wheezing. GASTROINTESTINAL: Abdomen soft, non-tender, nondistended. Bowel sounds x4. MUSCULOSKELETAL: No obvious deformities. No clubbing or cyanosis. No edema. NEUROLOGICAL: Awake and alert. No focal neurological deficits. Moves upper and lower extremities spontaneously. Normal speech. PSYCHIATRIC: Anxious mood and affect; insight and judgment normal. A/P Problem List: (1) Allergic reaction ICD Code: T78.40XA Status: Acute (2) Chest tightness or pressure ICD Code: R07.89 Status: Acute (3) Diabetes ICD Code: E11.9 Status: Chronic (4) HTN (hypertension) ICD Code: I10 Status: Chronic Assessment and Plan 46-year-old female with a history of diabetes, asthma, and lupus presented with Anaphylaxis: After eating fish, known allergy to shellfish. Given IV Solu- Medrol, IV famotidine, IM epinephrine, IV Ativan, albuterol neb in the ED with improvement in symptoms. Adverse reaction to Benadryl in the past. Appears extremely anxious. -Continue oral prednisone, famotidine. -Scheduled and as needed nebs -Continue oral Ativan as needed for anxiety -We'll give additional epinephrine as needed if reaction recurred -Soft diet for now -Continue to monitor for improvement in symptoms Chest tightening/ pressure Likely secondary to the above. Personally reviewed EKG which shows NSR. Labs: Troponin negative 2, third set pending -Follow up troponins -Monitor telemetry Diabetes, chronic: Continue sliding scale coverage especially while on steroids. Resume home sliding scale at discharge. Asthma: Chronic. Does not appear to be in acute exacerbation. Continue home fluticasone inhaler. Nebs scheduled and as needed. O2 as needed. DVT prophylaxis: Lovenox Discharge Planning Possible discharge planning later today versus tomorrow if patient continues to improve. Problem Qualifiers (1) Allergic reaction: Qualified Code: T78.40XA - Allergic reaction, initial encounter (2) HTN (hypertension): Qualified Code: I10 - Essential hypertension Jeromy Clark Aug 10, 2016 08:36
[2016-08-10] MEDS ORDERED: LORazepam 1 MG TAB PO ONE (08:45)
[2016-08-10] MEDS ORDERED: LORazepam 0.5 MG TAB PO PRN (08:45)
[2016-08-10] MEDS ORDERED: RESP: ALBUTEROL 2.5 MG/IPRATROPIUM 0.5 MG NEB (PRN) NEB (08:45)
[2016-08-10] MEDS ORDERED: FLUTICASONE PROPIONATE 110 MCG/ACT 12 GM INHALER INH SCH (09:00)
[2016-08-10] MEDS: HYDROXYCHLOROQUINE SULFATE 200 MG TAB PO SCH ×2 (09:55→22:41)
[2016-08-10] MEDS: MELOXICAM 15 MG TAB PO SCH (09:55)
[2016-08-10] MEDS: glipiZIDE 5 MG TAB PO SCH (09:55)
[2016-08-10] MEDS: GABAPENTIN 300 MG CAP PO SCH ×3 (09:55→18:11)
[2016-08-10] MEDS: FAMOTIDINE 20 MG TAB PO SCH ×2 (09:55→22:41)
[2016-08-10] MEDS: predniSONE 20 MG TAB PO SCH ×2 (09:55→22:41)
[2016-08-10] MEDS: ENOXAPARIN SODIUM 40 MG/0.4 ML SYRINGE SQ SCH (09:56)
[2016-08-10] MEDS: SODIUM CHLORIDE 0.9% FLUSH 5 ML FLUSH FLUSH SCH ×2 (09:59→21:00)
[2016-08-10] MEDS: RESP: ALBUTEROL 1.25 MG/3 ML NEB (SCH) NEB ×3 (10:39→19:36)
--- NOTE | 2016-08-10 10:39 | EKG ---
Date Performed: 08/09/2016 Time Performed: 20:21:32 PTAGE: 46 years EKG: Sinus rhythm NORMAL ECG PREVIOUS TRACING : 07/30/2016 19.04 DOCTOR: Jonnathan Gonsalez Interpretating Date/Time 08/10/2016 10:38:28
[2016-08-10] MEDS: INSULIN ASPART SUPPLEMENTAL SCALE SQ SCH ×3 (11:00→21:00)
[2016-08-11] MEDS: RESP: ALBUTEROL 1.25 MG/3 ML NEB (SCH) NEB ×3 (03:01→17:22)
[2016-08-11 03:02] VITALS: O2SAT 96
[2016-08-11] MEDS: INSULIN ASPART SUPPLEMENTAL SCALE SQ SCH ×3 (06:15→16:00)
[2016-08-11 07:18] VITALS: BP 134/79; PULSE 86; RESP 16; TEMP 97.3; O2SAT 95
[2016-08-11 08:00] VITALS: PULSE 68
--- NOTE | 2016-08-11 09:56 | HHI.PR ---
Subjective Remarks Follow-up for allergic reaction. The patient reports slight improvement overnight. She still feels slightly short of breath, worse with exertion. She still has some central and right sided chest tightness. Denies any difficulty breathing or swallowing. She's been tolerating oral intake. She believes she might be ready for discharge this afternoon if she continues to improve. Objective Vitals Vital Signs Date Time Temp Pulse Resp B/P Pulse Ox O2 Delivery O2 Flow Rate FiO2 08/11/16 07:18 97.3 86 16 134/79 95 08/11/16 03:02 96 Nasal Cannula 3.00 08/10/16 23:40 98.4 68 16 138/78 94 08/10/16 20:36 98.8 78 18 131/74 98 08/10/16 16:00 98.0 104 20 157/79 95 08/10/16 11:22 97.5 102 20 151/75 98 08/10/16 11:00 99 08/10/16 10:42 Nasal Cannula 3.00 I/O 08/10/16 08/10/16 08/10/16 08/11/16 08/11/16 08/11/16 07:00 15:00 23:00 07:00 15:00 23:00 Intake Total 120 ml 480 ml Balance 120 ml 480 ml Intake Oral 120 ml 480 ml # Voids 2 # Bowel Movements 1 0 Result Diagram: 08/10/168 08/10/16 0318 Imaging Last Impressions Chest X-Ray 08/09/16 0000 Signed Impressions: Service Date/Time: Tuesday, August 09, 2016 20:42 - CONCLUSION: No acute disease. Jareth Lovelace MD Objective Remarks GENERAL: Well-nourished, well-developed middle aged female patient in [facility]. SKIN: Warm and dry. No rash. HEENT: Normocephalic. Atraumatic. Pupils equal and round. No scleral icterus. No injection or drainage. Mucous membranes pink and moist. NECK: Supple. Trachea midline. CARDIOVASCULAR: Regular rate and rhythm. S1, S2 noted. No murmur appreciated. RESPIRATORY: No accessory muscle use. Lungs clear to auscultation. Breath sounds equal bilaterally. GASTROINTESTINAL: Abdomen soft, non-tender, nondistended. Normoactive bowel sounds x4. MUSCULOSKELETAL: No obvious deformities. Extremities without clubbing, cyanosis , or edema. NEUROLOGICAL: Awake and alert. No obvious cranial nerve deficits. Motor grossly within normal limits. Normal speech. PSYCHIATRIC: Appropriate mood and affect; insight and judgment normal. Medications and IVs Current Medications Medications (Trade) Dose Ordered Sig/Viviane Route Start Time Stop Time Status Last Admin (NS Flush) 2 ml UNSCH PRN FLUSH 08/09/16 22:45 (NS Flush) 2 ml BID FLUSH 08/10/16 09:00 08/10/16 21:00 (Narcan Inj) 0.4 mg UNSCH PRN IV 08/09/16 22:45 (Lovenox Inj) 40 mg Q24H SQ 08/10/16 09:00 08/10/16 09:56 (Neurontin) 600 mg TID PO 08/10/16 09:00 08/10/16 18:11 (Glucotrol) 5 mg DAILY PO 08/10/16 09:00 08/10/16 09:55 (Deltasone) 20 mg BID PO 08/10/16 09:00 08/10/16 22:41 (Adrenalin (1:1000) Inj) 0.7 mg Q20M PRN SQ 08/10/16 07:30 (Plaquenil) 200 mg BID PO 08/10/16 09:00 08/10/16 22:41 (Mobic) 15 mg DAILY PO 08/10/16 09:00 08/10/16 09:55 (Phenergan) 25 mg Q6H PRN PO 08/10/16 08:30 (D50w (Vial) Inj) 25 ml UNSCH PRN IV PUSH 08/10/16 08:30 (Glucagon Inj) 1 mg UNSCH PRN OTHER 08/10/16 08:30 (Ativan) 0.5 mg Q8H PRN PO 08/10/16 08:45 (Pepcid) 20 mg Q12HR PO 08/10/16 09:00 08/10/16 22:41 Urinary Catheter: No Vascular Central Line Catheter: No A/P Problem List: (1) Allergic reaction ICD Code: T78.40XA Status: Acute (2) Chest tightness or pressure ICD Code: R07.89 Status: Acute (3) Diabetes ICD Code: E11.9 Status: Chronic (4) HTN (hypertension) ICD Code: I10 Status: Chronic Assessment and Plan 46-year-old female with a history of diabetes, asthma, and lupus presented with Anaphylaxis: After eating fish, known allergy to shellfish. Given IV Solu- Medrol, IV famotidine, IM epinephrine, IV Ativan, albuterol neb in the ED with improvement in symptoms. Adverse reaction to Benadryl in the past. Appears extremely anxious. -Continue oral prednisone, famotidine. -Scheduled and as needed nebs -Continue oral Ativan as needed for anxiety -Ordered additional epinephrine as needed if reaction recurred -Soft diet for now -Added Zyrtec 10mg daily -Continue to monitor for improvement in symptoms, much improved today, no further wheezing Chest tightening/pressure Likely secondary to the above. Personally reviewed EKG which shows NSR. -ACS ruled out with negative serial Troponins 3 -Monitor on telemetry -Chest pains resolved Diabetes, chronic: Continue sliding scale coverage especially while on steroids. Resume home sliding scale at discharge. Asthma: Chronic. Does not appear to be in acute exacerbation. Continue home fluticasone inhaler. Nebs scheduled and as needed. O2 as needed. Microcytic Anemia: with Hemoccult positive stools, patient has had ongoing diarrhea and occasional BRBPR. Hgb stable. Possible component of IBD with hx of Lupus. Discussed extensively with the patient, will need to see gastroenterology as outpatient for colonoscopy, patient verbalized understanding. Diarrhea: chronic, check stool studies, negative so far. Outpatient GI f/up. DVT prophylaxis: Lovenox Written by Day Grullon, acting as scribe for Dr. Chow on 08/11/16 at 17: 11. The documentation accurately reflects the work performed [id number] by me on at 17:11. Discharge Planning 1700hrs: Patient much improved, wants to go home, will discharge. Discharge patient to home Condition on discharge: Improved Diabetic Diet as tolerated Ad Alyson activity Rx written: Ferrous sulfate 325mg po bid, Zyrtec/Pecid x1 week, Prednisone 20mg daily x4days. Follow-up with primary care physician Dr. Reddy and gastroenterology Problem Qualifiers (1) Allergic reaction: Qualified Code: T78.40XA - Allergic reaction, initial encounter (2) HTN (hypertension): Qualified Code: I10 - Essential hypertension Day Grullon PA-C Aug 11, 2016 09:56 Aurelia Chow MD Aug 11, 2016 17:22
[2016-08-11] MEDS: predniSONE 20 MG TAB PO SCH (10:05)
[2016-08-11] MEDS: MELOXICAM 15 MG TAB PO SCH (10:05)
[2016-08-11] MEDS: ENOXAPARIN SODIUM 40 MG/0.4 ML SYRINGE SQ SCH (10:05)
[2016-08-11] MEDS: glipiZIDE 5 MG TAB PO SCH (10:06)
[2016-08-11] MEDS: FAMOTIDINE 20 MG TAB PO SCH (10:06)
[2016-08-11] MEDS: HYDROXYCHLOROQUINE SULFATE 200 MG TAB PO SCH (10:06)
[2016-08-11] MEDS: GABAPENTIN 300 MG CAP PO SCH ×3 (10:07→18:03)
[2016-08-11 10:59] VITALS: BP 143/84; PULSE 100; RESP 16; TEMP 97.6; O2SAT 98
[2016-08-11] MEDS ORDERED: CETIRIZINE HCL 10 MG TAB PO SCH (11:00)
[2016-08-11 11:34] VITALS: BP 147/85; PULSE 98; RESP 18; TEMP 97.6; O2SAT 99
[2016-08-11] MEDS: SODIUM CHLORIDE 0.9% FLUSH 5 ML FLUSH FLUSH SCH (14:38)
[2016-08-11 15:19] VITALS: BP 144/85; PULSE 90; RESP 16; TEMP 98.4; O2SAT 97
[2016-08-11] MEDS ORDERED: FERROUS SULFATE 325 MG (65 MG ELEMENTAL IRON) TAB PO SCH (17:00)
[2016-08-11] MEDS ORDERED: PRED20 PO (17:01)
[2016-08-11] MEDS ORDERED: FERR325T PO (17:01)
[2016-08-11] MEDS ORDERED: FAMO20TA2 PO (17:01)
[2016-08-11] MEDS ORDERED: CETI10 PO (17:01)
--- NOTE | 2016-08-11 17:04 | HHI.DCPOC ---
Discharge Care Plan Diagnosis: (1) Allergic reaction Goals to Promote Your Health * To prevent worsening of your condition and complications * To maintain your health at the optimal level Directions to Meet Your Goals Take your medications as prescribed Follow your dietary instruction Follow activity as directed Keep your appointments as scheduled Take your immunizations and boosters as scheduled If your symptoms worsen call your PCP, if no PCP go to Urgent Care Center or Emergency Room Smoking is Dangerous to Your Health. Avoid second hand smoke Call the 24-hour hour crisis hotline for domestic abuse at Day Grullon PA-C Aug 11, 2016 5:04 pm
[2016-08-12 14:42] LABS: FECAL FAT % FAT 7 % fat (< 20)
== END 2016-08-11 19:33 | disposition home or self-care (01) ==
LOC: NEPE 20:03 → NEDA 22:37 → NEPHCDU 08-10
PROVIDERS: ADMIT Hospitalist; ATTEND Hospitalist
DX: T78.1XXA Other adverse food reactions, not elsewhere classified, initial encounter (principal); R05 Cough; R10.13 Epigastric pain; I10 Essential (primary) hypertension; K29.70 Gastritis, unspecified, without bleeding; Z86.73 Personal history of transient ischemic attack (TIA), and cerebral infarction without residual deficits; E11.9 Type 2 diabetes mellitus without complications; M79.7 Fibromyalgia; K21.9 Gastro-esophageal reflux disease without esophagitis; Z79.899 Other long term (current) drug therapy; Z79.4 Long term (current) use of insulin; J45.901 Unspecified asthma with (acute) exacerbation; R07.89 Other chest pain
CPT/HCPCS: 71010; 80048; 80053; 82272; 82710; 82948; 84484; 85025; 87205; 87328; 87425; 93005; 94640; 94664; 96361; 96372; 96374; 96375; 99285; C9113; G0378; J0171; J1650; J2060; J2405; J2930; J7030; J7512; J7613

== ENCOUNTER 2016-08-18 22:34 | Emergency (ER) | payer MEDICAID, OTHER ==
[~2016-08-18] VITALS: Ht 160 cm; Wt 89.0 kg
[~2016-08-18 22:34] MED LIST changes: +CETI10 PO; +FAMO20TA2 PO; +FERR325T PO; +PRED20 PO; -ZOFR4TAB3 SL
[2016-08-18 22:47] VITALS: BP 135/77; PULSE 98; RESP 20; RESP 29; TEMP 98.3; O2SAT 96
[2016-08-19 01:44] VITALS: BP 143/67; PULSE 88; RESP 16; TEMP 98.3; O2SAT 99
[2016-08-19 02:57] VITALS: BP 122/82; PULSE 98; RESP 20; O2SAT 100
--- NOTE | 2016-08-19 03:11 | PD ---
HPI Chief Complaint: Cold / Flu Symptoms Time Seen by Provider: 02:56 Travel History International Travel<30 days: No Contact w/Intl Traveler<30days: No Traveled to known affect area: No History of Present Illness HPI The patient is a 46-year-old female who presents to the emergency department for shortness of breath. The patient notes a 2 to three-day history of shortness of breath with audible wheezing. The patient does have a history of asthma and has been using her nebulizer at home, however, her symptoms have persisted. The patient states she is unable to see her primary physician to the and was referred to the emergency department by her primary physician, Dr. Reddy. The patient does complain of a mostly dry nonproductive cough, but does have white, clear, phlegm in the back of her throat. She also complains of pain located over the anterior aspect of her right neck. The patient denies any fever, but does know sick contacts at home with similar symptoms. The patient also complains of chest discomfort and tightness with her wheezing. She denies any nausea, vomiting, or abdominal pain. PFSH Past Medical History Hx Anticoagulant Therapy: Yes Asthma: Yes Autoimmune Disease: Yes (LUPUS) Blood Disorders: No Anxiety: Yes Depression: No Heart Rhythm Problems: No Cancer: No Cardiovascular Problems: Yes (HTN) High Cholesterol: No Chest Pain: No Congestive Heart Failure: No COPD: No Cerebrovascular Accident: Yes (TIA) Diabetes: Yes Patient Takes Glucophage: No Diminished Hearing: No Fibromyalgia: Yes Gastrointestinal Disorders: Yes (GERD) GERD: Yes Genitourinary: No Hypertension: Yes Musculoskeletal: Yes (ATHRITIS) Neurologic: Yes (FIBROMYALGIA) Psychiatric: Yes Reproductive: No Respiratory: Yes (ASTHMA) Immunizations Current: Yes Sleep Apnea: No ?: Unknown LMP: LAST MONTH : 2 Para: 2 Past Surgical History Section: Yes Cholecystectomy: Yes Other Surgery: Yes (tendonitis) Social History Alcohol Use: No Tobacco Use: No Substance Use: No Allergies-Medications (Allergen,Severity, Reaction): Coded Allergies: Iodine (Verified Allergy, Severe, Anaphylaxis, 08/19/16) Shellfish (Verified Allergy, Severe, Anaphylaxis, 08/19/16) Theophylline (Verified Allergy, Severe, Anaphylaxis, 08/19/16) Aminophylline (Verified Allergy, Intermediate, MAKES HER HYPER ELEVATES BP , 08/19/16) Benadryl (Verified Allergy, Intermediate, palpitations, 08/19/16) Naprosyn (Verified Allergy, Intermediate, Rash, 08/19/16) Penicillin (Verified Allergy, Intermediate, RASH, 08/19/16) Broccoli (Verified Allergy, Unknown, 08/19/16) Imuran (Verified Allergy, Unknown, 08/19/16) Keflex (Verified Allergy, Unknown, 08/19/16) Motrin (Verified Adverse Reaction, Mild, LUPUS, 08/19/16) Uncoded Allergies: AMRNOHILSON (Allergy, Severe, 12/16/15) .. Eggplant (Allergy, Unknown, 04/23/16) Reported Meds & Prescriptions Reported Meds & Active Scripts Active Ferrous Sulfate 325 Mg Tab 325 Mg PO BID@ Prednisone 20 Mg Tab 20 Mg PO DAILY Famotidine 20 Mg Tab 20 Mg PO Q12HR Cetirizine (Cetirizine HCl) 10 Mg Tab 10 Mg PO DAILY Phenergan (Promethazine HCl) 25 Mg Tab 25 Mg PO Q6H PRN Protonix (Pantoprazole Sodium) 20 Mg Tab 20 Mg PO DAILY Gabapentin 600 Mg Tab 600 Mg PO TID Meloxicam 15 Mg Tab 15 Mg PO DAILY Reported Novolin R Inj (Insulin Human Regular) 1,000 Unit/10 Ml Vial 0 SQ DIRECTED Sliding Scale As Directed. Plaquenil (Hydroxychloroquine Sulfate) 200 Mg Tab 200 Mg PO BID Take with food Glucotrol (Glipizide) 5 Mg Tab 5 Mg PO DAILY Take 30 minutes before a meal Flovent Hfa 12 GM Inh (Fluticasone Propionate) 110 Mcg/Act Inh 1 Puff INH BID Pulmicort Respules (Budesonide) 0.25 Mg/2 Ml Neb 0.25 Mg NEB Q12HR Ventolin Hfa 18 GM Inh (Albuterol Sulfate) 90 Mcg/Act Aer 2 Puff INH Q4H PRN Review of Systems Except as stated in HPI: all other systems reviewed are Neg General / Constitutional: No: Fever HENT: Positive: Neck Pain, No: Lightheadedness Cardiovascular: Positive: Chest Pain or Discomfort Respiratory: Positive: Cough, Shortness of Breath, Wheezing Gastrointestinal: No: Nausea, Vomiting, Abdominal Pain Musculoskeletal: No: Edema Physical Exam Narrative GENERAL: Awake, alert, 46-year-old somewhat anxious appearing lady in no obvious respiratory distress. SKIN: Warm and dry. HEAD: Atraumatic. Normocephalic. EYES: Pupils equal and round. No scleral icterus. No injection or drainage. ENT: No nasal bleeding or discharge. Mucous membranes pink and moist. Cobblestoning of posterior pharynx but no edema noted. Uvula is midline. NECK: Trachea midline. No JVD. Minimal right anterior cervical lymphadenopathy that is mobile and nontender. CARDIOVASCULAR: Regular rate and rhythm. No murmur appreciated. RESPIRATORY: Prolonged expiratory phase with wheezing noted. MUSCULOSKELETAL: No obvious deformities. No clubbing. No cyanosis. No edema. NEUROLOGICAL: Awake and alert. No obvious cranial nerve deficits. Motor grossly within normal limits. Normal speech. PSYCHIATRIC: Appropriate mood and affect; insight and judgment normal. Data Data Last Documented VS Vital Signs Date Time Temp Pulse Resp B/P Pulse Ox O2 Delivery O2 Flow Rate FiO2 08/19/16 03:10 100 Room Air 08/19/16 02:57 98 20 122/82 08/19/16 01:44 98.3 Orders Complete Blood Count With Diff (08/19/16 03:04) Basic Metabolic Panel (Bmp) (08/19/16 03:04) B-Type Natriuretic Peptide (08/19/16 03:04) Ckmb (Isoenzyme) Profile (08/19/16 03:04) Troponin I (08/19/16 03:04) Iv Access Insert/Monitor (08/19/16 03:04) Electrocardiogram (08/19/16 03:04) Ecg Monitoring (08/19/16 03:04) Oximetry (08/19/16 03:04) Oxygen Administration (08/19/16 03:04) Chest, Single Ap (08/19/16 03:04) Sodium Chloride 0.9% Flush (Ns Flush) (08/19/16 03:15) Methylprednisolone So Succ Inj (Solumedr (08/19/16 03:15) Albuterol-Ipratropium Neb (Duoneb Neb) (08/19/16 03:15) Resp Blood Gas Venous (08/19/16 ) Lidocaine Pf 4% Neb (Lidocaine Pf 4% Neb (08/19/16 03:15) Sodium Chlorid 0.9% 500 Ml Inj (Ns 500 M (08/19/16 03:15) CKMB (08/19/16 03:20) CKMB% (08/19/16 03:20) Labs Laboratory Tests Test 08/19/16 03:20 White Blood Count 10.3 TH/MM3 Red Blood Count 4.94 MIL/MM3 Hemoglobin 9.9 GM/DL Hematocrit 32.1 % Mean Corpuscular Volume 65.0 FL Mean Corpuscular Hemoglobin 20.0 PG Mean Corpuscular Hemoglobin 30.7 % Concent Red Cell Distribution Width 21.5 % Platelet Count 177 TH/MM3 Mean Platelet Volume 10.8 FL Neutrophils (%) (Auto) 63.7 % Lymphocytes (%) (Auto) 24.3 % Monocytes (%) (Auto) 8.7 % Eosinophils (%) (Auto) 2.7 % Basophils (%) (Auto) 0.6 % Neutrophils # (Auto) 6.5 TH/MM3 Lymphocytes # (Auto) 2.5 TH/MM3 Monocytes # (Auto) 0.9 TH/MM3 Eosinophils # (Auto) 0.3 TH/MM3 Basophils # (Auto) 0.1 TH/MM3 CBC Comment AUTO DIFF Differential Comment AUTO DIFF CONFIRMED Platelet Estimate NORMAL Platelet Morphology Comment NORMAL Ovalocytes 1+ Sodium Level 139 MEQ/L Potassium Level 3.8 MEQ/L Chloride Level 105 MEQ/L Carbon Dioxide Level 24.3 MEQ/L Anion Gap 10 MEQ/L Blood Urea Nitrogen 9 MG/DL Creatinine 0.72 MG/DL Estimat Glomerular Filtration 88 ML/MIN Rate Random Glucose 76 MG/DL Calcium Level 8.6 MG/DL Total Creatine Kinase 143 U/L Troponin I LESS THAN 0.02 NG/ML B-Type Natriuretic Peptide LESS THAN 2 PG/ML MDM Medical Decision Making Medical Screen Exam Complete: Yes Emergency Medical Condition: Yes Medical Record Reviewed: Yes Interpretation(s) Laboratory Tests Test 08/19/16 03:20 White Blood Count 10.3 TH/MM3 Red Blood Count 4.94 MIL/MM3 Hemoglobin 9.9 GM/DL Hematocrit 32.1 % Mean Corpuscular Volume 65.0 FL Mean Corpuscular Hemoglobin 20.0 PG Mean Corpuscular Hemoglobin 30.7 % Concent Red Cell Distribution Width 21.5 % Platelet Count 177 TH/MM3 Mean Platelet Volume 10.8 FL Neutrophils (%) (Auto) 63.7 % Lymphocytes (%) (Auto) 24.3 % Monocytes (%) (Auto) 8.7 % Eosinophils (%) (Auto) 2.7 % Basophils (%) (Auto) 0.6 % Neutrophils # (Auto) 6.5 TH/MM3 Lymphocytes # (Auto) 2.5 TH/MM3 Monocytes # (Auto) 0.9 TH/MM3 Eosinophils # (Auto) 0.3 TH/MM3 Basophils # (Auto) 0.1 TH/MM3 CBC Comment AUTO DIFF Differential Comment AUTO DIFF CONFIRMED Platelet Estimate NORMAL Platelet Morphology Comment NORMAL Ovalocytes 1+ Sodium Level 139 MEQ/L Potassium Level 3.8 MEQ/L Chloride Level 105 MEQ/L Carbon Dioxide Level 24.3 MEQ/L Anion Gap 10 MEQ/L Blood Urea Nitrogen 9 MG/DL Creatinine 0.72 MG/DL Estimat Glomerular Filtration 88 ML/MIN Rate Random Glucose 76 MG/DL Calcium Level 8.6 MG/DL Total Creatine Kinase 143 U/L Troponin I LESS THAN 0.02 NG/ML B-Type Natriuretic Peptide LESS THAN 2 PG/ML Last Impressions Chest X-Ray 08/19/16 0304 Signed Impressions: Service Date/Time: Friday, August 19, 2016 03:24 - CONCLUSION: No infiltrates seen. Abhijeet Moses MD Differential Diagnosis Differential diagnosis includes asthma exacerbation, bronchitis, acute coronary syndrome, congestive heart for her, pleural effusion, URI. Narrative Course IV was established, labs are drawn and sent, and the patient was placed on cardiac telemetry monitoring and continuous pulse oximetry monitoring. EKG was ordered and interpreted. Chest x-ray was obtained. The patient was administered Solu-Medrol and DuoNeb's X 3 with respiratory lidocaine. Diagnosis Primary Impression: Asthma exacerbation Additional Impression: Chest tightness or pressure Patient Instructions: General Instructions Additional Instructions: Medications as directed. Follow-up with your primary physician. Return if symptoms worsen or progress. Please provide the patient a copy of her x-ray results and lab results at discharge. Med/Other Pt SpecificInfo: Prescription(s) given Scripts Albuterol Neb 2.5 Mg/3 Ml Neb2.5 Mg NEB Q4HR NEB #60 NEBULE Ref 0 While awake Prov:Cosme Alfredo MD 08/19/16 Prednisone (Deltasone)20 Mg Tab40 Mg PO DAILY 4 Days Ref 0 Prov:Cosme Alfredo MD 08/19/16 Disposition: 01 DISCHARGE HOME Condition: Stable Cosme Alfredo MD Aug 19, 2016 03:11
[2016-08-19] MEDS ORDERED: methylPREDNISolone SOD SUCC 125 MG/2 ML VIAL IVP ONE (03:15)
[2016-08-19] MEDS ORDERED: SODIUM CHLORID 0.9% 500 ML INJ 500 ML IV ONE (03:15)
[2016-08-19] MEDS ORDERED: RESP: LIDOCAINE HCL 4% PF 5 ML NEB NEB ONE (03:15)
[2016-08-19] MEDS ORDERED: SODIUM CHLORIDE 0.9% FLUSH 5 ML FLUSH IVF PRN (03:15)
[2016-08-19 03:34] LABS: AUTOMATED NEUTROPHIL # 6.5 TH/MM3 (1.8-7.7); BASOPHIL # 0.1 TH/MM3 (0-0.2); BASOPHIL % 0.6 % (0.0-2.0); EOSINOPHIL # 0.3 TH/MM3 (0-0.4); EOSINOPHIL % 2.7 % (0.0-4.0); HEMATOCRIT 32.1 % (35.0-46.0); LYMPH % 24.3 % (9.0-44.0); LYMPHOCYTE # 2.5 TH/MM3 (1.0-4.8); MEAN CORPUSCULAR HGB CONC 30.7 % (32.0-36.0); MONO % 8.7 % (0.0-8.0); NEUT % 63.7 % (16.0-70.0); PLATELET COUNT 177 TH/MM3 (150-450); RED BLOOD COUNT 4.94 MIL/MM3 (4.00-5.30); RED CELL DISTRIBUTION WIDTH 21.5 % (11.6-17.2); WHITE BLOOD COUNT 10.3 TH/MM3 (4.0-11.0)
[2016-08-19 03:36] LABS: HEMO FLAGS AUTO DIFF
--- NOTE | 2016-08-19 03:46 | RADRPT ---
EXAM DATE/TIME: 08/19/2016 03:24 [facility] COMPARISON: CHEST SINGLE AP, April 06, 2016, 1:47. CHEST PA & LAT, July 15, 2016, 23:58. CHEST SINGLE AP, August 09, 2016, 20:42. INDICATIONS : Shortness of breath. MEDICAL HISTORY : Cardiovascular disease. SURGICAL HISTORY : None. ENCOUNTER: Initial ACUITY: 1 day PAIN SCORE: 0/10 LOCATION: Bilateral chest FINDINGS: A single view of the chest demonstrates the lungs to be symmetrically aerated without evidence of mas s, infiltrate or effusion. The cardiomediastinal contours are unremarkable. Osseous structures are intact. CONCLUSION: No infiltrates seen. Abhijeet Moses MD on August 19, 2016 at 3:43 Board Certified Radiologist. This report was verified electronically.
[2016-08-19] MEDS: RESP: ALBUTEROL 2.5 MG/IPRATROPIUM 0.5 MG NEB (SCH) INH ×2 (03:58→03:59)
[2016-08-19 04:05] LABS: ANION GAP 10 MEQ/L (5-15); BICARBONATE 24.3 MEQ/L (21.0-32.0); BLOOD UREA NITROGEN 9 MG/DL (7-18); CHLORIDE 105 MEQ/L (98-107); GLOMERULAR FILTRATION RATE 88 ML/MIN (>89); POTASSIUM 3.8 MEQ/L (3.5-5.1); SODIUM (NA) 139 MEQ/L (136-145)
[2016-08-19 04:08] LABS: CREATINE KINASE 143 U/L (26-192)
[2016-08-19 04:17] LABS: OVALOCYTES 1+ (NORMAL); PLATELET ESTIMATE SMEAR NORMAL (NORMAL); PLATELET MORPHOLOGY NORMAL (NORMAL); SCAN/DIFF AUTO DIFF CONFIRMED
[2016-08-19 04:26] LABS: CKMB 0.7 NG/ML (0.5-3.6)
[2016-08-19] MEDS ORDERED: PRED-503 PO (04:27)
[2016-08-19] MEDS ORDERED: ALBU0.08 NEB (04:27)
[2016-08-19 04:37] VITALS: BP 128/87
--- NOTE | 2016-08-19 19:20 | EKG ---
Date Performed: 08/19/2016 Time Performed: 03:29:13 PTAGE: 46 years EKG: Sinus rhythm WITH OCCASIONAL SUPRAVENTRICULAR PREMATURE COMPLEXES BORDERLINE ECG PREVIOUS TRACING : 08/09/2016 20.21 Compared to prior tracing no significant change DOCTOR: Jaden Hubbard Interpretating Date/Time 08/19/2016 19:19:00
== END 2016-08-19 04:42 | disposition home or self-care (01) ==
LOC: NEPC 22:34
DX: J45.901 Unspecified asthma with (acute) exacerbation (principal); M79.7 Fibromyalgia; K21.9 Gastro-esophageal reflux disease without esophagitis; Z86.73 Personal history of transient ischemic attack (TIA), and cerebral infarction without residual deficits; I10 Essential (primary) hypertension; M32.9 Systemic lupus erythematosus, unspecified; F41.9 Anxiety disorder, unspecified; Z79.01 Long term (current) use of anticoagulants
CPT/HCPCS: 71010; 80048; 82550; 82552; 83880; 84484; 85025; 93005; 94640; 94664; 96361; 96374; 99284; J2930; J7040

== ENCOUNTER 2016-09-23 14:01 | Emergency (ER) | payer OTHER ==
[~2016-09-23] VITALS: Ht 160 cm; Wt 85.0 kg
[~2016-09-23 14:01] MED LIST changes: +ALBU0.08 NEB; +PRED-503 PO
[2016-09-23 14:03] VITALS: BP 178/100; PULSE 112; RESP 20; TEMP 98.8; O2SAT 98
--- NOTE | 2016-09-23 14:21 | PD ---
HPI . right ankle pain, sob, cp, dizziness Chief Complaint: Injury Time Seen by Provider: 14:21 Travel History International Travel<30 days: No Contact w/Intl Traveler<30days: No Traveled to known affect area: No History of Present Illness HPI 46-year-old female who was initially brought into the emergency department secondary right ankle pain here with complaints of chest pain, shortness of breath and dizziness. Patient said that she accidentally slipped and fell hurting her right ankle and wrist. While being triaged in the fast track area patient starts telling the nurse that she has some shortness of breath, chest pain and dizziness. She does have a past medical history significant for lupus , asthma, anxiety, hypertension, TIA, GERD, diabetes, fibromyalgia and osteoarthritis. PFSH Past Medical History Hx Anticoagulant Therapy: Yes Asthma: Yes Autoimmune Disease: Yes (LUPUS) Blood Disorders: No Anxiety: Yes Depression: No Heart Rhythm Problems: No Cancer: No Cardiovascular Problems: Yes (HTN) High Cholesterol: No Chest Pain: No Congestive Heart Failure: No COPD: No Cerebrovascular Accident: Yes (TIA) Diabetes: Yes Diminished Hearing: No Fibromyalgia: Yes Gastrointestinal Disorders: Yes (GERD) GERD: Yes Genitourinary: No Hypertension: Yes Musculoskeletal: Yes (ATHRITIS) Neurologic: Yes (FIBROMYALGIA) Psychiatric: Yes Reproductive: No Respiratory: Yes (ASTHMA) Immunizations Current: Yes Sleep Apnea: No ?: Not LMP: 09/23/16 : 2 Para: 2 Past Surgical History Section: Yes Cholecystectomy: Yes Other Surgery: Yes (tendonitis) Social History Alcohol Use: No Tobacco Use: No Substance Use: No Allergies-Medications (Allergen,Severity, Reaction): Coded Allergies: Iodine (Verified Allergy, Severe, Anaphylaxis, 09/23/16) Shellfish (Verified Allergy, Severe, Anaphylaxis, 09/23/16) Theophylline (Verified Allergy, Severe, Anaphylaxis, 09/23/16) Aminophylline (Verified Allergy, Intermediate, MAKES HER HYPER ELEVATES BP , 09/23/16) Benadryl (Verified Allergy, Intermediate, palpitations, 09/23/16) Naprosyn (Verified Allergy, Intermediate, Rash, 09/23/16) Penicillin (Verified Allergy, Intermediate, RASH, 09/23/16) Broccoli (Verified Allergy, Unknown, 09/23/16) Imuran (Verified Allergy, Unknown, 09/23/16) Keflex (Verified Allergy, Unknown, 09/23/16) Motrin (Verified Adverse Reaction, Mild, LUPUS, 09/23/16) Uncoded Allergies: AMRNOHILSON (Allergy, Severe, 12/16/15) .. Eggplant (Allergy, Unknown, 04/23/16) Reported Meds & Prescriptions Reported Meds & Active Scripts Active Tylenol-Codeine #3 (Acetaminophen-Codeine) 300-30 mg Tab 1-2 Tab PO Q6H PRN Prednisone 20 Mg Tab 40 Mg PO DAILY 4 Days Protonix (Pantoprazole Sodium) 20 Mg Tab 20 Mg PO DAILY Reported Proair Hfa 8.5 GM Inh (Albuterol Sulfate) 90 Mcg/Act Aer 1 Puff INH Q4H PRN 108 mcg/actuation Duloxetine DR (Duloxetine HCl) 20 Mg Capdr 20 Mg PO DAILY Lyrica (Pregabalin) 25 Mg Cap 25 Mg PO DAILY Metformin (Metformin HCl) 500 Mg Tab 500 Mg PO BIDPC With meals Review of Systems General / Constitutional: No: Fever Eyes: No: Visual changes HENT: No: Headaches Cardiovascular: Positive: Chest Pain or Discomfort Respiratory: Positive: Shortness of Breath Gastrointestinal: No: Abdominal Pain Genitourinary: No: Dysuria Musculoskeletal: Positive: Pain (right ankle pain) Skin: No Rash Neurologic: Positive: Dizziness, No: Weakness Psychiatric: No: Depression Endocrine: No: Polydipsia Hematologic/Lymphatic: No: Easy Bruising Physical Exam Narrative GENERAL: AAO x 3, no acute distress, Well-nourished, well-developed patient. SKIN: Warm and dry. No visible rashes or bruising. HEAD: Normocephalic and atraumatic. EYES: No scleral icterus. No injection or drainage. ENT: No nasal drainage noted. Mucous membranes pink. Airway patent. NECK: Supple, trachea midline. No JVD. CARDIOVASCULAR: Regular rate and rhythm without murmurs, gallops, or rubs. She is tachycardic on examination. RESPIRATORY: Breath sounds equal bilaterally. During examination patient starts to breathe heavily. I cannot clearly auscultate any wheezing. She does have a prominent dry cough. GASTROINTESTINAL: Abdomen soft, non-tender, nondistended. EXTREMITIES: No cyanosis or edema. Edema over the dorsum of the right foot. There is point tenderness along the navicular bone. BACK: Nontender without obvious deformity. No CVA tenderness. PSYCH: AAO x 3, normal affect. Data Data Last Documented VS Vital Signs Date Time Temp Pulse Resp B/P Pulse Ox O2 Delivery O2 Flow Rate FiO2 09/23/16 14:57 102 22 141/88 09/23/16 14:03 98.8 98 Room Air Orders Complete Blood Count With Diff (09/23/16 15:21) Comprehensive Metabolic Panel (09/23/16 15:21) ^ Insert Iv (09/23/16 15:21) Troponin I (09/23/16 15:21) Chest, Single Ap (09/23/16 ) Electrocardiogram (09/23/16 ) Urinalysis - C+S If Indicated (09/23/16 15:21) Wrist, Complete ([id number]) (09/23/16 ) Hand, Complete ([id number]) (09/23/16 ) Hip, Uni(Ap&Lat) Wo Ap Pelvis (09/23/16 ) Knee, Ltd (1 Or 2vws) (09/23/16 ) Ankle, Complete (Zhw3eli) (09/23/16 ) Foot, Complete ([id number]) (09/23/16 ) Methylprednisolone So Succ Inj (Solumedr (09/23/16 15:30) Sodium Chlor 0.9% 1000 Ml Inj (Ns 1000 M (09/23/16 15:30) Albuterol-Ipratropium Neb (Duoneb Neb) (09/23/16 15:30) Acetamin-Codeine 300-30 Mg (Tylenol-Code (09/23/16 17:15) Crutches (09/23/16 17:13) ^ Elan Bandage (09/23/16 17:13) Labs Laboratory Tests Test 09/23/16 15:30 White Blood Count 6.8 TH/MM3 Red Blood Count 4.86 MIL/MM3 Hemoglobin 10.5 GM/DL Hematocrit 33.5 % Mean Corpuscular Volume 69.0 FL Mean Corpuscular Hemoglobin 21.5 PG Mean Corpuscular Hemoglobin 31.2 % Concent Red Cell Distribution Width 23.6 % Platelet Count 177 TH/MM3 Mean Platelet Volume 11.9 FL Neutrophils (%) (Auto) 64.1 % Lymphocytes (%) (Auto) 25.5 % Monocytes (%) (Auto) 7.3 % Eosinophils (%) (Auto) 2.5 % Basophils (%) (Auto) 0.6 % Neutrophils # (Auto) 4.4 TH/MM3 Lymphocytes # (Auto) 1.7 TH/MM3 Monocytes # (Auto) 0.5 TH/MM3 Eosinophils # (Auto) 0.2 TH/MM3 Basophils # (Auto) 0.0 TH/MM3 CBC Comment AUTO DIFF Differential Comment AUTO DIFF CONFIRMED Platelet Estimate NORMAL Platelet Morphology Comment NORMAL Red Cell Morphology Comment NORMAL Urine Color YELLOW Urine Turbidity CLEAR Urine pH 6.5 Urine Specific [place] 1.004 Urine Protein TRACE mg/dL Urine Glucose (UA) NEG mg/dL Urine Ketones NEG mg/dL Urine Occult Blood LARGE Urine Nitrite NEG Urine Bilirubin NEG Urine Urobilinogen LESS THAN 2.0 MG/DL Urine Leukocyte Esterase SMALL Urine RBC 56 /hpf Urine Squamous Epithelial <1 /hpf Cells Urine Bacteria OCC /hpf Microscopic Urinalysis Comment CULT NOT INDICATED Sodium Level 139 MEQ/L Potassium Level 4.0 MEQ/L Chloride Level 104 MEQ/L Carbon Dioxide Level 28.3 MEQ/L Anion Gap 7 MEQ/L Blood Urea Nitrogen 7 MG/DL Creatinine 0.79 MG/DL Estimat Glomerular Filtration 79 ML/MIN Rate Random Glucose 99 MG/DL Calcium Level 8.4 MG/DL Total Bilirubin 0.3 MG/DL Aspartate Amino Transf 35 U/L (AST/SGOT) Alanine Aminotransferase 43 U/L (ALT/SGPT) Alkaline Phosphatase 83 U/L Troponin I LESS THAN 0.02 NG/ML Total Protein 7.7 GM/DL Albumin 3.7 GM/DL [facility] Medical Decision Making Medical Screen Exam Complete: Yes Emergency Medical Condition: Yes Medical Record Reviewed: Yes Differential Diagnosis ankle sprain, foot sprain, less likely ACS Narrative Course 46-year-old female who was initially brought into the emergency department secondary right ankle pain here with complaints of chest pain, shortness of breath and dizziness. Patient said that she accidentally slipped and fell hurting her right ankle and wrist. While being triaged in the fast track area patient starts telling the nurse that she has some shortness of breath, chest pain and dizziness. She does have a past medical history significant for lupus , asthma, anxiety, hypertension, TIA, GERD, diabetes, fibromyalgia and osteoarthritis. Patient seen and examined. She has multiple medical complaints and will require further evaluation and treatment from a medical bed. I requested her be transferred to a medical bed. That provider will determine her disposition. She is currently hemodynamically stable and in no signs of distress. Scripts Acetaminophen-Codeine (Tylenol-Codeine #3)300-30 mg Tab1-2 Tab PO Q6H PRN (PAIN ) #15 TAB Ref 0 Prov:Magali Bello MD 09/23/16 Prednisone 20 Mg Tab40 Mg PO DAILY 4 Days Prov:Magali Bello MD 09/23/16 Condition: Stable [place] Sep 23, 2016 14:21
[2016-09-23] MEDS ORDERED: PREG25 PO (14:29)
[2016-09-23] MEDS ORDERED: METF500T PO (14:29)
[2016-09-23] MEDS ORDERED: ALBUAER3 INH (14:29)
[2016-09-23] MEDS ORDERED: DULO1CAP PO (14:29)
[2016-09-23 14:57] VITALS: BP 141/88; PULSE 102; RESP 22
[2016-09-23] MEDS ORDERED: SODIUM CHLOR 0.9% 1000 ML INJ 1,000 ML IV ONE (15:30)
[2016-09-23] MEDS ORDERED: methylPREDNISolone SOD SUCC 125 MG/2 ML VIAL IV PUSH ONE (15:30)
[2016-09-23 16:00] LABS: AUTOMATED NEUTROPHIL # 4.4 TH/MM3 (1.8-7.7); BASOPHIL % 0.6 % (0.0-2.0); EOSINOPHIL # 0.2 TH/MM3 (0-0.4); EOSINOPHIL % 2.5 % (0.0-4.0); HEMATOCRIT 33.5 % (35.0-46.0); LYMPH % 25.5 % (9.0-44.0); LYMPHOCYTE # 1.7 TH/MM3 (1.0-4.8); MEAN CORPUSCULAR HEMOGLOBIN 21.5 PG (27.0-34.0); MEAN CORPUSCULAR HGB CONC 31.2 % (32.0-36.0); MONO % 7.3 % (0.0-8.0); NEUT % 64.1 % (16.0-70.0); PLATELET COUNT 177 TH/MM3 (150-450); RED BLOOD COUNT 4.86 MIL/MM3 (4.00-5.30); RED CELL DISTRIBUTION WIDTH 23.6 % (11.6-17.2); WHITE BLOOD COUNT 6.8 TH/MM3 (4.0-11.0)
[2016-09-23 16:02] LABS: HEMO FLAGS AUTO DIFF
[2016-09-23 16:11] LABS: ALKALINE PHOSPHATASE 83 U/L (45-117); BACTERIA, URINE OCC /hpf; BLOOD, URINE LARGE (NEG); COMMENT (UR) CULT NOT INDICATED; CULTURE IF INDICATED CULT NOT INDICATED; GLUCOSE,URINE NEG (NEG); KETONE, URINE NEG (NEG); NITRITE,URINE NEG (NEG); PH, URINE 6.5 (5.0-8.5); SQUAMOUS EPITHELIAL CELL URINE <1 /hpf (0-5); TOTAL BILIRUBIN ADULT 0.3 MG/DL (0.2-1.0); URINE COLOR YELLOW (YELLW/STRAW)
[2016-09-23 16:13] LABS: ALT (GPT) 43 U/L (10-53); ANION GAP 7 MEQ/L (5-15); AST (GOT) 35 U/L (15-37); BICARBONATE 28.3 MEQ/L (21.0-32.0); BLOOD UREA NITROGEN 7 MG/DL (7-18); CHLORIDE 104 MEQ/L (98-107); GLOMERULAR FILTRATION RATE 79 ML/MIN (>89); SODIUM (NA) 139 MEQ/L (136-145)
[2016-09-23 16:35] LABS: PLATELET ESTIMATE SMEAR NORMAL (NORMAL); PLATELET MORPHOLOGY NORMAL (NORMAL); SCAN/DIFF AUTO DIFF CONFIRMED
--- NOTE | 2016-09-23 16:35 | RADRPT ---
EXAM DATE/TIME: 09/23/2016 16:05 [facility] COMPARISON: HAND RIGHT COMPLETE ([id number]), January 25, 2016, 21:14. INDICATIONS : Right hand pain, fall. MEDICAL HISTORY : None. SURGICAL HISTORY : None. ENCOUNTER: Initial ACUITY: 1 day PAIN SCORE: 7/10 LOCATION: Right lateral hand FINDINGS: Three view examination of the right hand demonstrates no dislocation, or fracture. Mild soft tissue swelling is seen along the metacarpophalangeal joints. The carpal bones appear intact. The interpha langeal and metacarpophalangeal joints are intact. Bony mineralization is normal. CONCLUSION: Mild soft tissue swelling. No evidence of fracture or dislocation. Jareth Lovelace MD on September 23, 2016 at 16:27 Board Certified Radiologist. This report was verified electronically.
--- NOTE | 2016-09-23 16:39 | RADRPT ---
EXAM DATE/TIME: 09/23/2016 16:04 [facility] COMPARISON: No previous studies available for comparison. INDICATIONS : Right knee pain, fall. MEDICAL HISTORY : None. SURGICAL HISTORY : None. ENCOUNTER: Initial ACUITY: 1 day PAIN SCORE: 7/10 LOCATION: Right lateral knee FINDINGS: Two view examination of the right knee demonstrates no evidence of fracture or dislocation. Bony min eralization is normal. The suprapatellar soft tissues have a normal configuration. CONCLUSION: No acute disease. Keivn Sims MD on September 23, 2016 at 16:38 Board Certified Radiologist. This report was verified electronically.
--- NOTE | 2016-09-23 16:39 | RADRPT ---
EXAM DATE/TIME: 09/23/2016 16:00 [facility] COMPARISON: No previous studies available for comparison. INDICATIONS : Right ankle pain, fall. MEDICAL HISTORY : None. SURGICAL HISTORY : None. ENCOUNTER: Initial ACUITY: 1 day PAIN SCORE: 6/10 LOCATION: Right lateral ankle FINDINGS: Three view exam was performed of the right ankle. The bony structures are in normal alignment. No e vidence of fracture, dislocation, or soft tissue swelling. The ankle mortise is intact. No radiopaq ue foreign bodies are seen. Bony mineralization is normal. Plantar calcaneal spur. CONCLUSION: 1. Plantar calcaneal spur. Kevin Sims MD on September 23, 2016 at 16:37 Board Certified Radiologist. This report was verified electronically.
--- NOTE | 2016-09-23 16:40 | RADRPT ---
EXAM DATE/TIME: 09/23/2016 16:06 [facility] COMPARISON: No previous studies available for comparison. INDICATIONS : Right wrist pain, fall. MEDICAL HISTORY : None. SURGICAL HISTORY : None. ENCOUNTER: Initial ACUITY: 1 day PAIN SCORE: 5/10 LOCATION: Right medial wrist FINDINGS: Three view examination of the right wrist demonstrates no soft tissue swelling, dislocation, or fract ure. The carpal bones are in normal alignment. The joint spaces are maintained. Bony mineralizatio n is normal. CONCLUSION: No acute disease. Kevin Sims MD on September 23, 2016 at 16:38 Board Certified Radiologist. This report was verified electronically.
--- NOTE | 2016-09-23 16:41 | RADRPT ---
EXAM DATE/TIME: 09/23/2016 16:10 [facility] COMPARISON: No previous studies available for comparison. INDICATIONS : Right hip pain, fall. MEDICAL HISTORY : None. SURGICAL HISTORY : None. ENCOUNTER: Initial ACUITY: 1 day PAIN SCORE: 5/10 LOCATION: Right hip FINDINGS: A two view examination of the right hip was performed. The primary and secondary trabecular pattern of the femoral neck is intact. The hip joint is of normal width without significant sclerosis or bon y hypertrophy. The acetabulum is grossly intact. CONCLUSION: No acute disease. Kevin Sims MD on September 23, 2016 at 16:39 Board Certified Radiologist. This report was verified electronically.
[2016-09-23] MEDS: RESP: ALBUTEROL 2.5 MG/IPRATROPIUM 0.5 MG NEB (SCH) INH ×2 (16:45→16:46)
--- NOTE | 2016-09-23 16:55 | RADRPT ---
EXAM DATE/TIME: 09/23/2016 15:58 [facility] COMPARISON: CHEST SINGLE AP, August 19, 2016, 3:24. INDICATIONS : Shortness of breath. MEDICAL HISTORY : None. SURGICAL HISTORY : None. ENCOUNTER: Initial ACUITY: 1 day PAIN SCORE: 0/10 LOCATION: Bilateral chest FINDINGS: A single view of the chest demonstrates the lungs to be symmetrically aerated without evidence of mas s, infiltrate or effusion. The cardiomediastinal contours are unremarkable. Osseous structures are intact. CONCLUSION: No acute disease. Jareth Lovelace MD on September 23, 2016 at 16:54 Board Certified Radiologist. This report was verified electronically.
--- NOTE | 2016-09-23 16:58 | RADRPT ---
EXAM DATE/TIME: 09/23/2016 16:02 [facility] COMPARISON: No previous studies available for comparison. INDICATIONS : Right foot pain, fall. MEDICAL HISTORY : None. SURGICAL HISTORY : None. ENCOUNTER: Initial ACUITY: 1 day PAIN SCORE: 6/10 LOCATION: Right lateral foot FINDINGS: Three view examination of the right foot demonstrates no soft tissue swelling, dislocation, or fractu re. The tarsal bones appear intact. The interphalangeal and metatarsophalangeal joints are intact. The calcaneus is intact. Bony mineralization is normal. Tiny plantar calcaneal spur. CONCLUSION: Calcaneal spur. No fracture is seen. Kevin Sims MD on September 23, 2016 at 16:56 Board Certified Radiologist. This report was verified electronically.
[2016-09-23] MEDS ORDERED: PRED20 PO (17:12)
[2016-09-23] MEDS ORDERED: TYLETAB34 PO (17:12)
--- NOTE | 2016-09-23 17:12 | PD ---
HPI Chief Complaint: Injury Time Seen by Provider: 15:10 Travel History International Travel<30 days: No Contact w/Intl Traveler<30days: No Traveled to known affect area: No History of Present Illness HPI This is a 46-year-old female who presents to the emergency department having had a fall when she was walking her dog. She says prior to the fall she was feeling short of breath and dizzy. She's been having trouble controlling her asthma and she's been very wheezy, constant, moderate severity, worse over the past several days. Patient hurt her right wrist, hand, right ankle and foot. She did not hit her head or lose consciousness. PFSH Past Medical History Hx Anticoagulant Therapy: Yes Asthma: Yes Autoimmune Disease: Yes (LOOPIS) Blood Disorders: No Anxiety: Yes Depression: No Heart Rhythm Problems: No Cancer: No Cardiovascular Problems: Yes (HTN) High Cholesterol: No Chest Pain: No Congestive Heart Failure: No COPD: No Cerebrovascular Accident: Yes (TIA) Diabetes: Yes Patient Takes Glucophage: Yes Diminished Hearing: No Fibromyalgia: Yes Gastrointestinal Disorders: Yes (GASTRITIS) GERD: Yes Genitourinary: No Hypertension: Yes Musculoskeletal: Yes (CARPAL TUNNEL) Neurologic: Yes (FIBROMYALGIA) Psychiatric: Yes Reproductive: No Respiratory: Yes (ASTHMA) Immunizations Current: Yes Sleep Apnea: No ?: Unknown LMP: 09/23/16 : 2 Para: 2 Past Surgical History Section: Yes (X2) Cholecystectomy: Yes Other Surgery: Yes (tendonitis) Social History Alcohol Use: No Tobacco Use: No Substance Use: No Allergies-Medications (Allergen,Severity, Reaction): Coded Allergies: Iodine (Verified Allergy, Severe, Anaphylaxis, 09/23/16) Shellfish (Verified Allergy, Severe, Anaphylaxis, 09/23/16) Theophylline (Verified Allergy, Severe, Anaphylaxis, 09/23/16) Aminophylline (Verified Allergy, Intermediate, MAKES HER HYPER ELEVATES BP , 09/23/16) Benadryl (Verified Allergy, Intermediate, palpitations, 09/23/16) Naprosyn (Verified Allergy, Intermediate, Rash, 09/23/16) Penicillin (Verified Allergy, Intermediate, RASH, 09/23/16) Broccoli (Verified Allergy, Unknown, 09/23/16) Imuran (Verified Allergy, Unknown, 09/23/16) Keflex (Verified Allergy, Unknown, 09/23/16) Motrin (Verified Adverse Reaction, Mild, LUPUS, 09/23/16) Uncoded Allergies: AMRNOHILSON (Allergy, Severe, 12/16/15) .. Eggplant (Allergy, Unknown, 04/23/16) Reported Meds & Prescriptions Reported Meds & Active Scripts Active Protonix (Pantoprazole Sodium) 20 Mg Tab 20 Mg PO DAILY Reported Proair Hfa 8.5 GM Inh (Albuterol Sulfate) 90 Mcg/Act Aer 1 Puff INH Q4H PRN 108 mcg/actuation Duloxetine DR (Duloxetine HCl) 20 Mg Capdr 20 Mg PO DAILY Lyrica (Pregabalin) 25 Mg Cap 25 Mg PO DAILY Metformin (Metformin HCl) 500 Mg Tab 500 Mg PO BIDPC With meals Review of Systems Except as stated in HPI: all other systems reviewed are Neg Physical Exam Narrative GENERAL:Well appearing, no acute distress SKIN: Ecchymoses over the dorsal aspect of the right foot. HEAD: Atraumatic. Normocephalic. EYES: Pupils equal and round. No injection or drainage. ENT: Moist mucous membranes NECK: Trachea midline. CARDIOVASCULAR: Regular rate and rhythm. No murmur appreciated. 2+ bilateral DP pulses with normal capillary refill. RESPIRATORY: Diffuse wheezing, no tachypnea or accessory muscle use. GASTROINTESTINAL: Abdomen soft, non-tender, nondistended. MUSCULOSKELETAL: No snuffbox tenderness on the right, tender to palpation over the right wrist and thenar eminence on the right hand, swelling of the medial malleolus of the right ankle and swelling over the dorsal aspect of the right foot. NEUROLOGICAL: Awake and alert. No obvious cranial nerve deficits. Moving all extremities. PSYCHIATRIC: Appropriate mood and affect; insight and judgment normal. Data Data Last Documented VS Vital Signs Date Time Temp Pulse Resp B/P Pulse Ox O2 Delivery O2 Flow Rate FiO2 09/23/16 14:57 102 22 141/88 09/23/16 14:03 98.8 98 Room Air Orders Complete Blood Count With Diff (09/23/16 15:21) Comprehensive Metabolic Panel (09/23/16 15:21) ^ Insert Iv (09/23/16 15:21) Troponin I (09/23/16 15:21) Chest, Single Ap (09/23/16 ) Electrocardiogram (09/23/16 ) Urinalysis - C+S If Indicated (09/23/16 15:21) Wrist, Complete ([id number]) (09/23/16 ) Hand, Complete (Jum7lif) (09/23/16 ) Hip, Uni(Ap&Lat) Wo Ap Pelvis (09/23/16 ) Knee, Ltd (1 Or 2vws) (09/23/16 ) Ankle, Complete (Keo8byi) (09/23/16 ) Foot, Complete (Rfk4wnf) (09/23/16 ) Methylprednisolone So Succ Inj (Solumedr (09/23/16 15:30) Sodium Chlor 0.9% 1000 Ml Inj (Ns 1000 M (09/23/16 15:30) Albuterol-Ipratropium Neb (Duoneb Neb) (09/23/16 15:30) Labs Laboratory Tests Test 09/23/16 15:30 White Blood Count 6.8 TH/MM3 Red Blood Count 4.86 MIL/MM3 Hemoglobin 10.5 GM/DL Hematocrit 33.5 % Mean Corpuscular Volume 69.0 FL Mean Corpuscular Hemoglobin 21.5 PG Mean Corpuscular Hemoglobin 31.2 % Concent Red Cell Distribution Width 23.6 % Platelet Count 177 TH/MM3 Mean Platelet Volume 11.9 FL Neutrophils (%) (Auto) 64.1 % Lymphocytes (%) (Auto) 25.5 % Monocytes (%) (Auto) 7.3 % Eosinophils (%) (Auto) 2.5 % Basophils (%) (Auto) 0.6 % Neutrophils # (Auto) 4.4 TH/MM3 Lymphocytes # (Auto) 1.7 TH/MM3 Monocytes # (Auto) 0.5 TH/MM3 Eosinophils # (Auto) 0.2 TH/MM3 Basophils # (Auto) 0.0 TH/MM3 CBC Comment AUTO DIFF Differential Comment AUTO DIFF CONFIRMED Platelet Estimate NORMAL Platelet Morphology Comment NORMAL Red Cell Morphology Comment NORMAL Urine Color YELLOW Urine Turbidity CLEAR Urine pH 6.5 Urine Specific [place] 1.004 Urine Protein TRACE mg/dL Urine Glucose (UA) NEG mg/dL Urine Ketones NEG mg/dL Urine Occult Blood LARGE Urine Nitrite NEG Urine Bilirubin NEG Urine Urobilinogen LESS THAN 2.0 MG/DL Urine Leukocyte Esterase SMALL Urine RBC 56 /hpf Urine Squamous Epithelial <1 /hpf Cells Urine Bacteria OCC /hpf Microscopic Urinalysis Comment CULT NOT INDICATED Sodium Level 139 MEQ/L Potassium Level 4.0 MEQ/L Chloride Level 104 MEQ/L Carbon Dioxide Level 28.3 MEQ/L Anion Gap 7 MEQ/L Blood Urea Nitrogen 7 MG/DL Creatinine 0.79 MG/DL Estimat Glomerular Filtration 79 ML/MIN Rate Random Glucose 99 MG/DL Calcium Level 8.4 MG/DL Total Bilirubin 0.3 MG/DL Aspartate Amino Transf 35 U/L (AST/SGOT) Alanine Aminotransferase 43 U/L (ALT/SGPT) Alkaline Phosphatase 83 U/L Troponin I LESS THAN 0.02 NG/ML Total Protein 7.7 GM/DL Albumin 3.7 GM/DL [facility] Medical Decision Making Medical Screen Exam Complete: Yes Emergency Medical Condition: Yes Interpretation(s) Afebrile, tachycardic, hypertensive Microcytic anemia Electrolytes are reassuring Troponin is normal Urinalysis: Blood in the urine, patient is on her menstrual cycle Last 24 hours Impressions Wrist X-Ray 09/23/16 0000 Signed Impressions: Service Date/Time: Friday, September 23, 2016 16:06 - CONCLUSION: No acute disease. Kevin Sims MD Knee X-Ray 09/23/16 0000 Signed Impressions: Service Date/Time: Friday, September 23, 2016 16:04 - CONCLUSION: No acute disease. Kevin Sims MD Hip X-Ray 09/23/16 0000 Signed Impressions: Service Date/Time: Friday, September 23, 2016 16:10 - CONCLUSION: No acute disease. Kevin Sims MD Hand X-Ray 09/23/16 0000 Signed Impressions: Service Date/Time: Friday, September 23, 2016 16:05 - CONCLUSION: Mild soft tissue swelling. No evidence of fracture or dislocation. Jarteh Lovelace MD Chest X-Ray 09/23/16 0000 Signed Impressions: Service Date/Time: Friday, September 23, 2016 15:58 - CONCLUSION: No acute disease. Jareth Lovelace MD Ankle X-Ray 09/23/16 0000 Signed Impressions: Service Date/Time: Friday, September 23, 2016 16:00 - CONCLUSION: 1. Plantar calcaneal spur. Kevin Sims MD Differential Diagnosis Pneumonia, COPD exacerbation, pulmonary embolism, electrolyte abnormality, dehydration, arrhythmia Narrative Course This is a 46-year-old female who has a history of COPD who presents to the emergency department having had a fall in the setting of some dizziness and shortness of breath. She has a history of asthma. She was diffusely wheezing on arrival. She was given serial DuoNeb's and methylprednisolone. Her shortness of breath improved significantly. She does have evidence of an ankle sprain and a contusion on her wrist. X-rays were obtained of the right upper and right lower extremities off which were reassuring with no fracture. Labs are all reassuring. I think patient can safely be discharged home with prednisone and pain control. She was given an orthopedic follow-up as needed. I did consider pulmonary embolism given the patient had some dizziness and lightheadedness, but given she is diffusely wheezing on exam I think asthma is a more reasonable explanation for her shortness of breath and I think the risk of testing outweighs the benefit. Diagnosis Primary Impression: Asthma exacerbation Additional Impression: Right ankle sprain Qualified Code: S93.401A - Sprain of right ankle, unspecified ligament, initial encounter Referrals: Feliciano Maldonado MD Patient Instructions: General Instructions Additional Instructions: If you develop severe pain in the foot or ankle, numbness, weakness, or coolness of your foot return to the emergency department immediately. - Use crutches as needed and rest your ankle until your pain improves. - Apply ice to your ankle for 20 minutes every 3 hours for the first 2 days. - Use an fede wrap to minimize swelling. - Keep your ankle elevated when you are resting. - Use ibuprofen as needed for pain. - Gradually start exercises with your ankle, moving it upward, downward and in small circles. Perform 20 clockwise and 20 counterclockwise circles twice daily. If you develop severe shortness of breath, chest pain, or difficulty breathing return to the emergency department. Use albuterol every 4 hours for the next 2 days. Then use as needed for wheezing. Complete your course of steroids. Follow up with your primary care physician in 2-3 days if your symptoms have not improved. Med/Other Pt SpecificInfo: Prescription(s) given Scripts Acetaminophen-Codeine (Tylenol-Codeine #3)300-30 mg Tab1-2 Tab PO Q6H PRN (PAIN ) #15 TAB Ref 0 Prov:Magali Bello MD 09/23/16 Prednisone 20 Mg Tab40 Mg PO DAILY 4 Days Prov:Magali Bello MD 09/23/16 Disposition: 01 DISCHARGE HOME Condition: Stable Magali Bello MD Sep 23, 2016 17:12
[2016-09-23] MEDS ORDERED: ACETAMINOPHEN/CODEINE 300 MG/30 MG TAB PO ONE (17:15)
[2016-09-23 17:55] VITALS: BP 148/90; PULSE 114; RESP 18; O2SAT 97
--- NOTE | 2016-09-24 14:42 | EKG ---
Date Performed: 09/23/2016 Time Performed: 15:00:22 PTAGE: 46 years EKG: Sinus rhythm Compared to previous tracing, PACs are no longer present. NORMAL ECG PREVIOUS TRACING : 08/19/2016 03.29 DOCTOR: Bubba Hopson Interpretating Date/Time 09/24/2016 14:41:55
== END 2016-09-23 18:34 | disposition home or self-care (01) ==
LOC: NEPD 14:01
DX: J45.901 Unspecified asthma with (acute) exacerbation (principal); S93.401A Sprain of unspecified ligament of right ankle, initial encounter; J45.909 Unspecified asthma, uncomplicated; I10 Essential (primary) hypertension; E11.9 Type 2 diabetes mellitus without complications; M79.7 Fibromyalgia; K21.9 Gastro-esophageal reflux disease without esophagitis; R06.02 Shortness of breath; R07.9 Chest pain, unspecified; M32.9 Systemic lupus erythematosus, unspecified; Z79.01 Long term (current) use of anticoagulants; Z86.73 Personal history of transient ischemic attack (TIA), and cerebral infarction without residual deficits; W19.XXXA Unspecified fall, initial encounter; Y93.K1 Activity, walking an animal; Y92.9 Unspecified place or not applicable; Y99.8 Other external cause status
CPT/HCPCS: 71010; 73110; 73130; 73502; 73560; 73610; 73630; 80053; 81001; 84484; 85025; 93005; 94640; 94664; 96361; 96374; 99284; E0113; J2930; J7030

== ENCOUNTER 2016-10-09 19:23 | Emergency (ER) | payer OTHER ==
[~2016-10-09] VITALS: Ht 160 cm; Wt 84.5 kg
[~2016-10-09 19:23] MED LIST changes: -ALBU0.08 NEB; +ALBUAER3 INH; -BUDE.25I NEB; -CETI10 PO; +DULO1CAP PO; -FAMO20TA2 PO; -FERR325T PO; -FLUTI110I INH; -GABA600T PO; -GLIP5 PO; -MELO-1 PO; +METF500T PO; -NOVORP2 SQ; -PLAQ200T PO; -PRED-503 PO; +PREG25 PO; -PROM25TA5 PO; +TYLETAB34 PO; -VENTAER INH
[2016-10-09 19:38] VITALS: BP 145/67; PULSE 90; RESP 16; TEMP 98.3; O2SAT 95
[2016-10-09 19:44] VITALS: BP_SYST 136; BP_SYST 145; BP_DIAS 61; BP_DIAS 67; PULSE 92; PULSE 94; RESP 16; O2SAT 97; O2SAT 98
[2016-10-09] MEDS ORDERED: ASPIRIN 81 MG CHEW TAB PO ONE (19:45)
--- NOTE | 2016-10-09 19:45 | PD ---
HPI Chief Complaint: ams/cp Time Seen by Provider: 19:45 Travel History International Travel<30 days: No Contact w/Intl Traveler<30days: No Traveled to known affect area: No History of Present Illness HPI 46 year-old female presents to the emergency department by [facility] for evaluation. Patient has a history of fibromyalgia, lupus, diabetes. She took Lyrica and Cymbalta and went to sleep. Her daughter was unable to arouse her so she contacted [facility]. Patient was reporting chest pressure which she states happens frequently after taking Cymbalta and Lyrica. She sometimes gets nauseous after taking these This is not new for the patient. She denies any shortness of breath. No Episodes of diaphoresis. She reports no focal deficits or weakness. Denies taking any other medication or illicit drug. No recent illness, fever, chills. No other symptoms to report. PFSH Past Medical History Hx Anticoagulant Therapy: Yes Asthma: Yes Autoimmune Disease: Yes (LOOPIS) Blood Disorders: No Anxiety: Yes Depression: No Heart Rhythm Problems: No Cancer: No Cardiovascular Problems: Yes (HTN) High Cholesterol: No Chest Pain: No Congestive Heart Failure: No COPD: No Cerebrovascular Accident: Yes (TIA) Diabetes: Yes Diminished Hearing: No Fibromyalgia: Yes Gastrointestinal Disorders: Yes (GASTRITIS) GERD: Yes Genitourinary: No Hypertension: Yes Musculoskeletal: Yes (CARPAL TUNNEL) Neurologic: Yes (FIBROMYALGIA) Psychiatric: Yes Reproductive: No Respiratory: Yes (ASTHMA) Immunizations Current: Yes Sleep Apnea: No ?: Not LMP: 09/14/2016 : 2 Para: 2 Past Surgical History Section: Yes (X2) Cholecystectomy: Yes Other Surgery: Yes (tendonitis) Social History Alcohol Use: No Tobacco Use: No Substance Use: No Allergies-Medications (Allergen,Severity, Reaction): Coded Allergies: Iodine (Verified Allergy, Severe, Anaphylaxis, 10/09/16) Shellfish (Verified Allergy, Severe, Anaphylaxis, 10/09/16) Theophylline (Verified Allergy, Severe, Anaphylaxis, 10/09/16) Aminophylline (Verified Allergy, Intermediate, MAKES HER HYPER ELEVATES BP , 10/09/16) Benadryl (Verified Allergy, Intermediate, palpitations, 10/09/16) Naprosyn (Verified Allergy, Intermediate, Rash, 10/09/16) Penicillin (Verified Allergy, Intermediate, RASH, 10/09/16) Broccoli (Verified Allergy, Unknown, 10/09/16) Imuran (Verified Allergy, Unknown, 10/09/16) Keflex (Verified Allergy, Unknown, 10/09/16) Motrin (Verified Adverse Reaction, Mild, LUPUS, 10/09/16) Uncoded Allergies: Eggplant (Allergy, Intermediate, 10/09/16) AMRNOHILSON (Adverse Reaction, Severe, 10/09/16) .. Reported Meds & Prescriptions Reported Meds & Active Scripts Active Protonix (Pantoprazole Sodium) 20 Mg Tab 20 Mg PO DAILY Reported Metformin (Metformin HCl) 1,000 Mg Tab 1,000 Mg PO BIDPC With meals Lyrica (Pregabalin) 25 Mg Cap 25 Mg PO DAILY Advair Diskus Inh (Fluticasone-Salmeterol Inh) 250-50 Mcg/Blist Aer 1 Puff INH BID Rinse mouth after use. Loratadine 10 Mg Tab 10 Mg PO DAILY Proair Hfa 8.5 GM Inh (Albuterol Sulfate) 90 Mcg/Act Aer 1 Puff INH Q4H PRN 108 mcg/actuation Duloxetine DR (Duloxetine HCl) 20 Mg Capdr 20 Mg PO DAILY Review of Systems Except as stated in HPI: all other systems reviewed are Neg Physical Exam Narrative GENERAL: Well-nourished female patient, lying in bed in no acute distress SKIN: Focused skin assessment warm/dry. HEAD: Atraumatic. Normocephalic. EYES: Pupils equal and round. No scleral icterus. No injection or drainage. ENT: No nasal bleeding or discharge. Mucous membranes pink and moist. NECK: Trachea midline. No JVD. CARDIOVASCULAR: Regular rate and rhythm. No murmur appreciated. RESPIRATORY: No accessory muscle use. Clear to auscultation. Breath sounds equal bilaterally. Tenderness elicited palpation of the anterior chest wall. No crepitus. Respirations. GASTROINTESTINAL: Abdomen soft, non-tender, nondistended. Hepatic and splenic margins not palpable. MUSCULOSKELETAL: No obvious deformities. No clubbing. No cyanosis. No edema. NEUROLOGICAL: Lethargic, arousable. No obvious cranial nerve deficits. Motor grossly within normal limits. Normal speech. Data Data Last Documented VS Vital Signs Date Time Temp Pulse Resp B/P Pulse Ox O2 Delivery O2 Flow Rate FiO2 10/09/16 20:12 10/09/16 19:44 92 16 98 Room Air 10/09/16 19:38 98.3 Orders Electrocardiogram (10/09/16 19:41) Basic Metabolic Panel (Bmp) (10/09/16 19:41) Ckmb (Isoenzyme) Profile (10/09/16 19:41) Complete Blood Count With Diff (10/09/16 19:41) Magnesium (Mg) (10/09/16 19:41) Prothrombin Time / Inr (Pt) (10/09/16 19:41) Act Partial Throm Time (Ptt) (10/09/16 19:41) Troponin I (10/09/16 19:41) Chest, Single Ap (10/09/16 19:41) Ecg Monitoring (10/09/16 19:41) Bilateral Bp Monitoring (10/09/16 19:41) Iv Access Insert/Monitor (10/09/16 19:41) Oximetry (10/09/16 19:41) Oxygen Administration (10/09/16 19:41) Aspirin Chew (Aspirin Chew) (10/09/16 19:45) Sodium Chloride 0.9% Flush (Ns Flush) (10/09/16 19:45) Urinalysis - C+S If Indicated (10/09/16 19:45) Drug Screen, Random Urine (10/09/16 19:45) Alcohol (Ethanol) (10/09/16 19:45) Salicylates (Aspirin) (10/09/16 19:45) Tylenol (Acetaminophen) (10/09/16 19:45) CKMB (10/09/16 20:00) CKMB% (10/09/16 20:00) Ketorolac Inj (Toradol Inj) (10/09/16 22:45) Labs Laboratory Tests Test 10/09/16 10/09/16 20:00 21:10 White Blood Count 8.8 TH/MM3 Red Blood Count 4.83 MIL/MM3 Hemoglobin 10.6 GM/DL Hematocrit 32.9 % Mean Corpuscular Volume 68.1 FL Mean Corpuscular Hemoglobin 21.9 PG Mean Corpuscular Hemoglobin 32.1 % Concent Red Cell Distribution Width 22.2 % Platelet Count 167 TH/MM3 Mean Platelet Volume 11.2 FL Neutrophils (%) (Auto) 70.5 % Lymphocytes (%) (Auto) 20.1 % Monocytes (%) (Auto) 6.9 % Eosinophils (%) (Auto) 2.1 % Basophils (%) (Auto) 0.4 % Neutrophils # (Auto) 6.2 TH/MM3 Lymphocytes # (Auto) 1.8 TH/MM3 Monocytes # (Auto) 0.6 TH/MM3 Eosinophils # (Auto) 0.2 TH/MM3 Basophils # (Auto) 0.0 TH/MM3 CBC Comment AUTO DIFF Differential Comment AUTO DIFF CONFIRMED Platelet Estimate LOW Platelet Morphology Comment NORMAL Sodium Level 137 MEQ/L Potassium Level 3.4 MEQ/L Chloride Level 101 MEQ/L Carbon Dioxide Level 24.6 MEQ/L Anion Gap 11 MEQ/L Blood Urea Nitrogen 18 MG/DL Creatinine 1.09 MG/DL Estimat Glomerular Filtration 54 ML/MIN Rate Random Glucose 136 MG/DL Calcium Level 8.5 MG/DL Magnesium Level 2.1 MG/DL Total Creatine Kinase 123 U/L Creatine Kinase MB 1.2 NG/ML Troponin I LESS THAN 0.02 NG/ML Salicylates Level LESS THAN 1.7 MG/DL Acetaminophen Level LESS THAN 2.0 MCG/ML Ethyl Alcohol Level LESS THAN 3 MG/DL Urine Color LIGHT-YELLOW Urine Turbidity CLEAR Urine pH 5.0 Urine Specific [place] 1.007 Urine Protein NEG mg/dL Urine Glucose (UA) NEG mg/dL Urine Ketones NEG mg/dL Urine Occult Blood NEG Urine Nitrite NEG Urine Bilirubin NEG Urine Urobilinogen LESS THAN 2.0 MG/DL Urine Leukocyte Esterase NEG Urine RBC LESS THAN 1 /hpf Urine WBC 1 /hpf Urine Hyaline Casts 2 /lpf Microscopic Urinalysis Comment CULT NOT INDICATED Urine Opiates Screen NEG Urine Barbiturates Screen NEG Urine Amphetamines Screen NEG Urine Benzodiazepines Screen NEG Urine Cocaine Screen NEG Urine Cannabinoids Screen NEG [facility] Medical Decision Making Medical Screen Exam Complete: Yes Emergency Medical Condition: Yes Medical Record Reviewed: Yes Differential Diagnosis Chest wall pain versus pleuritic pain versus ACS versus electrolyte abnormality versus infectious etiology versus medication side effect Narrative Course 46 year-old female presents to emergency department for evaluation. Patient appears without distress. She is lethargic but arousable. Oriented 3. No focal deficits or weakness. She does have anterior chest wall pain to palpation. CBC and BMP are without acute concern. Troponin is less than 0.02. Toxicology is negative. EtOH is less than 3. Urinalysis is unremarkable. Chest x-ray is with no acute cardiopulmonary disease. Upon reassessment, patient is awake and oriented 3. Her is at the bedside. He states that she has this pain frequently as well as in her shoulders and neck. It is reproducible upon palpation and movement. I have offered the chest pain center for further evaluation of possible cardiac etiology but feel this is likely musculoskeletal pain. Patient states that she does not want to stay for further evaluation as this has been chronic for her. I discussed this with my attending who agrees with this plan of care. She is competent to make this decision and agrees to return immediately if any acute worsening symptoms. Diagnosis Primary Impression: Chest tightness or pressure Additional Impressions: Muscle spasm Chest wall pain Referrals: Primary Care Physician Patient Instructions: Chest Wall Pain (ED), General Instructions Additional Instructions: Ice and/or warm moist female to alleviate symptoms Continue medication for pain control as prescribed Follow-up with her primary care provider Seek pain management evaluation symptoms persist Return immediately with any acute worsening of symptoms Med/Other Pt SpecificInfo: No Change to Meds Disposition: 01 DISCHARGE HOME Condition: Stable Abena العراقي Oct 09, 2016 19:45
--- NOTE | 2016-10-09 20:18 | RADRPT ---
EXAM DATE/TIME: 10/09/2016 19:46 [facility] COMPARISON: CHEST SINGLE AP, September 23, 2016, 15:58. INDICATIONS : Chest pain and pressure. MEDICAL HISTORY : None. SURGICAL HISTORY : None. ENCOUNTER: Initial ACUITY: 1 day PAIN SCORE: 7/10 LOCATION: Bilateral chest FINDINGS: The lungs are clear without infiltrate, nodule, or mass. There is no appreciable pleural effusion fo r technique. Heart and mediastinum are unremarkable. CONCLUSION: No acute cardiopulmonary disease. Penelope Feng MD on October 09, 2016 at 20:15 Board Certified Radiologist. This report was verified electronically.
[2016-10-09] MEDS ORDERED: METF1000 PO (20:24)
[2016-10-09] MEDS ORDERED: PREG25 PO (20:24)
[2016-10-09] MEDS ORDERED: ADVA250A INH (20:24)
[2016-10-09] MEDS ORDERED: LORA10TA PO (20:24)
[2016-10-09 20:41] LABS: AUTOMATED NEUTROPHIL # 6.2 TH/MM3 (1.8-7.7); BASOPHIL % 0.4 % (0.0-2.0); EOSINOPHIL # 0.2 TH/MM3 (0-0.4); EOSINOPHIL % 2.1 % (0.0-4.0); HEMATOCRIT 32.9 % (35.0-46.0); LYMPH % 20.1 % (9.0-44.0); LYMPHOCYTE # 1.8 TH/MM3 (1.0-4.8); MEAN CELL VOLUME 68.1 FL (80.0-100.0); MEAN CORPUSCULAR HEMOGLOBIN 21.9 PG (27.0-34.0); MEAN CORPUSCULAR HGB CONC 32.1 % (32.0-36.0); MONO % 6.9 % (0.0-8.0); NEUT % 70.5 % (16.0-70.0); PLATELET COUNT 167 TH/MM3 (150-450); RED BLOOD COUNT 4.83 MIL/MM3 (4.00-5.30); RED CELL DISTRIBUTION WIDTH 22.2 % (11.6-17.2); WHITE BLOOD COUNT 8.8 TH/MM3 (4.0-11.0)
[2016-10-09 20:49] LABS: HEMO FLAGS AUTO DIFF
[2016-10-09 21:00] LABS: ACETAMINOPHEN LESS THAN 2.0 MCG/ML (10.0-30.0)
[2016-10-09 21:18] LABS: PLATELET ESTIMATE SMEAR LOW (NORMAL); PLATELET MORPHOLOGY NORMAL (NORMAL); SCAN/DIFF AUTO DIFF CONFIRMED
[2016-10-09 21:59] LABS: AMPHETAMINE, URINE NEG (NEG); BARBITURATES, URINE NEG (NEG); COCAINE, URINE NEG (NEG)
[2016-10-09 22:04] LABS: ANION GAP 11 MEQ/L (5-15); BICARBONATE 24.6 MEQ/L (21.0-32.0); BLOOD UREA NITROGEN 18 MG/DL (7-18); CHLORIDE 101 MEQ/L (98-107); GLOMERULAR FILTRATION RATE 54 ML/MIN (>89); MAGNESIUM 2.1 MG/DL (1.5-2.5); POTASSIUM 3.4 MEQ/L (3.5-5.1); SODIUM (NA) 137 MEQ/L (136-145)
[2016-10-09 22:08] LABS: CREATINE KINASE 123 U/L (26-192)
[2016-10-09 22:09] LABS: BLOOD, URINE NEG (NEG); COMMENT (UR) CULT NOT INDICATED; CULTURE IF INDICATED CULT NOT INDICATED; GLUCOSE,URINE NEG (NEG); HYALINE CAST, URINE 2 /lpf (RARE); KETONE, URINE NEG (NEG); NITRITE,URINE NEG (NEG); URINE COLOR LIGHT-YELLOW (YELLW/STRAW)
[2016-10-09 22:24] LABS: CKMB 1.2 NG/ML (0.5-3.6)
[2016-10-09] MEDS ORDERED: KETOROLAC TROMETHAMINE 30 MG/ML (IVP) VIAL IV PUSH ONE (22:45)
[2016-10-09] MEDS: SODIUM CHLORIDE 0.9% FLUSH 10 ML FLUSH IVF PRN ×2 (22:47→22:59)
[2016-10-09 22:59] LABS: APTT (PATIENT) 26.5 SEC (24.3-30.1); INTERNATIONAL NORMALIZED RATIO 0.9 RATIO; PROTHROMBIN TIME - PATIENT 10.4 SEC (9.8-11.6)
[2016-10-09] MEDS ORDERED: ONDANSETRON HCL 4 MG/2 ML VIAL IV PUSH ONE (23:00)
[2016-10-09 23:06] VITALS: BP 129/74
--- NOTE | 2016-10-10 22:57 | EKG ---
Date Performed: 10/09/2016 Time Performed: 19:50:14 PTAGE: 46 years EKG: Sinus rhythm WITH SHORT GA INTERVAL BORDERLINE ECG PREVIOUS TRACING : 09/23/2016 15.00 Compared to prior tracing no significant change DOCTOR: Geovanni Echavarria Interpretating Date/Time 10/10/2016 22:55:11
== END 2016-10-09 23:25 | disposition home or self-care (01) ==
LOC: NEPE 19:23
DX: R07.89 Other chest pain (principal); M62.838 Other muscle spasm; R53.83 Other fatigue; I10 Essential (primary) hypertension; Z86.73 Personal history of transient ischemic attack (TIA), and cerebral infarction without residual deficits; E11.9 Type 2 diabetes mellitus without complications; M79.7 Fibromyalgia; J45.909 Unspecified asthma, uncomplicated
CPT/HCPCS: 71010; 80048; 80307; 81001; 82550; 82552; 83735; 84484; 85025; 85610; 85730; 93005; 96374; 96375; 99285; J1885; J2405

== ENCOUNTER 2016-10-16 11:24 | Inpatient (IN) | payer OTHER ==
[~2016-10-16] VITALS: Ht 160 cm; Wt 90.0 kg
[~2016-10-16 11:24] MED LIST changes: +ADVA250A INH; +LORA10TA PO; +METF1000 PO; -METF500T PO; -PRED20 PO; -TYLETAB34 PO
[2016-10-16 11:25] VITALS: BP 126/86; PULSE 124; RESP 28; TEMP 98.4; O2SAT 97
[2016-10-16 11:30] VITALS: BP 136/78; PULSE 92; RESP 22; TEMP 98.7; O2SAT 98
[2016-10-16] MEDS ORDERED: SODIUM CHLOR 0.9% 1000 ML INJ 1,000 ML IV SCH (11:34)
[2016-10-16] MEDS ORDERED: DULO20 PO (11:38)
[2016-10-16] MEDS ORDERED: [UNRECOGNIZED DRUG - REMARK] PO (11:40)
[2016-10-16] MEDS ORDERED: ONDANSETRON HCL 4 MG/2 ML VIAL IVP ONE (11:45)
[2016-10-16] MEDS ORDERED: MORPHINE SULFATE 4 MG/ML INJ IV PUSH ONE ×2 (11:45→13:45)
--- NOTE | 2016-10-16 11:49 | PD ---
HPI Chief Complaint: Abdominal Pain Time Seen by Provider: 11:45 Travel History International Travel<30 days: No Contact w/Intl Traveler<30days: No Traveled to known affect area: No History of Present Illness HPI 46-year-old female that presents to the ED for evaluation of severe epigastric abdominal pain. Patient came here yelling and screaming that she wanted help. Patient has a history of gastritis per records and states that the pain feels similar to her past that that is more severe. Per patient the pain is 10 out of 10. She denies any nausea or vomiting. No new foods. Per patient feels like a pulling pressure. Per patient he comes and goes. Nothing makes her better or worse. She denies any urinary or bowel movement issues. She states that she had her gallbladder removed already. She does have multiple allergies to medication. She's been taking Lyrica and gabapentin chronically for fibromyalgia and chronic pain. She denies any injuries. No nausea or vomiting. Denies any chest pain. No shortness of breath. Patient is somewhat difficult to be assessed because of the pain and her screaming. PFSH Past Medical History Hx Anticoagulant Therapy: Yes Asthma: Yes Autoimmune Disease: Yes (lupus) Blood Disorders: No Anxiety: Yes Depression: No Heart Rhythm Problems: No Cancer: No Cardiovascular Problems: Yes (HTN) High Cholesterol: No Chest Pain: No Congestive Heart Failure: No COPD: No Cerebrovascular Accident: Yes (TIA) Diabetes: Yes Patient Takes Glucophage: Yes Diminished Hearing: No Fibromyalgia: Yes Gastrointestinal Disorders: Yes (GASTRITIS) GERD: Yes Genitourinary: No Hypertension: Yes Musculoskeletal: Yes (CARPAL TUNNEL) Neurologic: Yes (FIBROMYALGIA) Psychiatric: Yes Reproductive: No Respiratory: Yes (ASTHMA) Immunizations Current: Yes Sleep Apnea: No ?: Unknown : 2 Para: 2 Past Surgical History Section: Yes (X2) Cholecystectomy: Yes Other Surgery: Yes (tendonitis) Social History Alcohol Use: No Tobacco Use: No Substance Use: No Allergies-Medications (Allergen,Severity, Reaction): Coded Allergies: Iodine (Verified Allergy, Severe, Anaphylaxis, 10/16/16) Shellfish (Verified Allergy, Severe, Anaphylaxis, 10/16/16) Theophylline (Verified Allergy, Severe, Anaphylaxis, 10/16/16) Aminophylline (Verified Allergy, Intermediate, MAKES HER HYPER ELEVATES BP , 10/16/16) Benadryl (Verified Allergy, Intermediate, palpitations, 10/16/16) Naprosyn (Verified Allergy, Intermediate, Rash, 10/16/16) Penicillin (Verified Allergy, Intermediate, RASH, 10/16/16) Broccoli (Verified Allergy, Unknown, 10/16/16) Imuran (Verified Allergy, Unknown, 10/16/16) Keflex (Verified Allergy, Unknown, 10/16/16) Motrin (Verified Adverse Reaction, Mild, LUPUS, 10/16/16) Uncoded Allergies: Eggplant (Allergy, Intermediate, 10/09/16) AMRNOHILSON (Adverse Reaction, Severe, 10/09/16) .. Reported Meds & Prescriptions Reported Meds & Active Scripts Active Protonix (Pantoprazole Sodium) 20 Mg Tab 20 Mg PO DAILY Reported [bp medx2] 1 Tab PO DAILY Cymbalta DR (Duloxetine HCl) 20 Mg Capdr 20 Mg PO DAILY Metformin (Metformin HCl) 1,000 Mg Tab 1,000 Mg PO BIDPC With meals Lyrica (Pregabalin) 25 Mg Cap 50 Mg PO DAILY Proair Hfa 8.5 GM Inh (Albuterol Sulfate) 90 Mcg/Act Aer 1 Puff INH Q4H PRN 108 mcg/actuation Duloxetine DR (Duloxetine HCl) 20 Mg Capdr 20 Mg PO DAILY Review of Systems Except as stated in HPI: all other systems reviewed are Neg Physical Exam Narrative GENERAL: SKIN: Warm and dry. HEAD: Atraumatic. Normocephalic. EYES: Pupils equal and round 4 mm reactive to light and accommodation. No scleral icterus. No injection or drainage. ENT: No nasal bleeding or discharge. Mucous membranes pink and moist. Tongue is midline. No uvula deviation. NECK: Trachea midline. No JVD. CARDIOVASCULAR: Regular rate and rhythm. No murmurs, S3, S4. RESPIRATORY: No accessory muscle use. Clear to auscultation. Breath sounds equal bilaterally. GASTROINTESTINAL: Abdomen soft, very tender and sensitive to touch in the epigastric area. Nondistended. Hepatic and splenic margins not palpable. MUSCULOSKELETAL: Extremities without clubbing, cyanosis, or edema. No obvious deformities. Tongue is midline. No uvula deviation. Full range of motion of the upper and lower extremities bilaterally. 2+ pulses bilaterally. NEUROLOGICAL: Awake and alert. No obvious cranial nerve deficits. Motor grossly within normal limits. Five out of 5 muscle strength in the arms and legs. Normal speech. PSYCHIATRIC: Appropriate mood and affect; insight and judgment normal. Data Data Last Documented VS Vital Signs Date Time Temp Pulse Resp B/P Pulse Ox O2 Delivery O2 Flow Rate FiO2 10/16/16 11:25 98.4 124 28 126/86 97 Room Air Orders Complete Blood Count With Diff (10/16/16 11:34) Comprehensive Metabolic Panel (10/16/16 11:34) Lipase (10/16/16 11:34) Lactic Acid (10/16/16 11:34) Prothrombin Time / Inr (Pt) (10/16/16 11:34) Act Partial Throm Time (Ptt) (10/16/16 11:34) Urinalysis - C+S If Indicated (10/16/16 11:34) Iv Access Insert/Monitor (10/16/16 11:34) Ecg Monitoring (10/16/16 11:34) Oximetry (10/16/16 11:34) Morphine Inj (Morphine Inj) (10/16/16 11:45) Ondansetron Inj (Zofran Inj) (10/16/16 11:45) Sodium Chlor 0.9% 1000 Ml Inj (Ns 1000 M (10/16/16 11:34) Electrocardiogram (10/16/16 11:34) Chest, Single Ap (10/16/16 ) Ed Urine Pregnancytest Poc (10/16/16 11:42) Lorazepam Inj (Ativan Inj) (10/16/16 12:00) Famotidine Inj (Pepcid Inj) (10/16/16 12:00) Troponin I (10/16/16 11:45) Urine Culture (10/16/16 11:45) Ct Abd/Pel W/O Iv Contrast (10/16/16 ) Morphine Inj (Morphine Inj) (10/16/16 13:45) Ciprofloxacin 200 Mg Premix (Cipro 200 M (10/16/16 13:45) Admit Order (Ed Use Only) (10/16/16 13:46) Diet Npo (10/16/16 Lunch) Vital Signs (Adult) EVELIA.Q4H (10/16/16 13:46) Ondansetron Inj (Zofran Inj) (10/16/16 14:00) Sodium Chlor 0.9% 1000 Ml Inj (Ns 1000 M (10/16/16 14:00) Blood Glucose Goal (Criteria) (10/16/16 13:46) Hypoglycemia 51 - 69 Mg/Dl (10/16/16 13:46) Hypoglycemia 50 Mg/Dl Or < (10/16/16 13:46) Notify Dr: Other (10/16/16 13:46) Dextrose 50% In [place] (Vial) Inj (D50w (Vi (10/16/16 14:00) Glucagon Inj (Glucagon Inj) (10/16/16 14:00) Insulin Aspart Supplemtl Scale (Novolog (10/16/16 16:00) Labs Laboratory Tests Test 10/16/16 10/16/16 11:45 11:49 White Blood Count 9.2 TH/MM3 Red Blood Count 5.10 MIL/MM3 Hemoglobin 11.6 GM/DL Hematocrit 34.9 % Mean Corpuscular Volume 68.5 FL Mean Corpuscular Hemoglobin 22.8 PG Mean Corpuscular Hemoglobin 33.2 % Concent Red Cell Distribution Width 21.8 % Platelet Count 167 TH/MM3 Mean Platelet Volume 10.3 FL Neutrophils (%) (Auto) 66.9 % Lymphocytes (%) (Auto) 23.1 % Monocytes (%) (Auto) 7.1 % Eosinophils (%) (Auto) 2.4 % Basophils (%) (Auto) 0.5 % Neutrophils # (Auto) 6.2 TH/MM3 Lymphocytes # (Auto) 2.1 TH/MM3 Monocytes # (Auto) 0.7 TH/MM3 Eosinophils # (Auto) 0.2 TH/MM3 Basophils # (Auto) 0.0 TH/MM3 CBC Comment AUTO DIFF Differential Comment AUTO DIFF CONFIRMED Prothrombin Time 10.8 SEC Prothromb Time International 1.0 RATIO Ratio Activated Partial 28.5 SEC Thromboplast Time Urine Color YELLOW Urine Turbidity HAZY Urine pH 5.5 Urine Specific [place] 1.019 Urine Protein TRACE mg/dL Urine Glucose (UA) NEG mg/dL Urine Ketones NEG mg/dL Urine Occult Blood MOD Urine Nitrite NEG Urine Bilirubin NEG Urine Urobilinogen LESS THAN 2.0 MG/DL Urine Leukocyte Esterase LARGE Urine RBC 45 /hpf Urine WBC 15 /hpf Urine WBC Clumps FEW Urine Squamous Epithelial 2 /hpf Cells Urine Amorphous Sediment RARE Urine Bacteria FEW /hpf Urine Hyaline Casts 37 /lpf Urine Mucus FEW /lpf Microscopic Urinalysis Comment CATH-CULTURE IND Sodium Level 135 MEQ/L Potassium Level 4.0 MEQ/L Chloride Level 100 MEQ/L Carbon Dioxide Level 25.5 MEQ/L Anion Gap 10 MEQ/L Blood Urea Nitrogen 13 MG/DL Creatinine 0.96 MG/DL Estimat Glomerular Filtration 63 ML/MIN Rate Random Glucose 102 MG/DL Calcium Level 9.3 MG/DL Total Bilirubin 0.4 MG/DL Aspartate Amino Transf 35 U/L (AST/SGOT) Alanine Aminotransferase 46 U/L (ALT/SGPT) Alkaline Phosphatase 87 U/L Troponin I LESS THAN 0.02 NG/ML Total Protein 8.5 GM/DL Albumin 4.0 GM/DL Lipase 361 U/L Lactic Acid Level 2.1 mmol/L [facility] Medical Decision Making Medical Screen Exam Complete: Yes Emergency Medical Condition: Yes Medical Record Reviewed: Yes Interpretation(s) CBC & BMP Diagram 10/16/16 11:45 lactic acid 2.1 LFTs and lipase WNL Last Impressions Chest X-Ray 10/16/16 0000 Signed Impressions: Service Date/Time: Sunday, October 16, 2016 12:08 - CONCLUSION: No acute disease. Gavino Ye MD Abdomen/Pelvis CT 10/16/16 0000 Signed Impressions: Service Date/Time: Sunday, October 16, 2016 12:54 - CONCLUSION: 1. Nonspecific, nonobstructive bowel gas pattern with multiple loops of nondilated air-containing small bowel small air-fluid levels. There is no free air or fluid. There is a normal appendix. 2. Moderate hepatic steatosis. 3. Status post cholecystectomy. Gavino Ye MD EKG shows sinus rhythm with no sign of acute ischemia or arrythmia read by me and attending. troponin and CKMB negative Differential Diagnosis Gastritis versus gastroenteritis versus acute abdomen versus abdominal pain versus chest pain versus ACS versus ischemic bowel versus perforation versus pancreatitis Narrative Course 46-year-old female that presents to the ED for evaluation of epigastric pain. Patient was properly examined and was found to have signs and symptoms of unclear etiology at this time. Patient is hard to assess secondary to her symptoms as she is continues to scream and yell. I'm able to get her to answer questions appropriately. After multiple times to this pain feels similar to her previous and she tells me yes multiple times. She does appear to be more pain in her physical exam reveals. At this time I do recommend labs and imaging. Patient was given IV pain medication and Ativan to help calm her down. Labs and imaging showed some gas in the bowels as well as UTI. Case was discussed with my attending who agrees with plan. Because patient still has a lot of discomfort do recommend admission for intractable pain. Patient is admitted with this plan. Patient was started on Cipro for the UTI as well as the gastroenteritis. Case was discussed with Dr. Hamm who agrees to admission. Diagnosis Primary Impression: Abdominal pain Qualified Code: R10.11 - Right upper quadrant abdominal pain Additional Impressions: UTI (urinary tract infection) Qualified Code: N30.01 - Acute cystitis with hematuria Gastroenteritis Admitting Information Admitting Physician Requests: Braxton Heard October 16, 2016 11:49
[2016-10-16 11:59] LABS: AUTOMATED NEUTROPHIL # 6.2 TH/MM3 (1.8-7.7); BASOPHIL % 0.5 % (0.0-2.0); EOSINOPHIL # 0.2 TH/MM3 (0-0.4); EOSINOPHIL % 2.4 % (0.0-4.0); HEMATOCRIT 34.9 % (35.0-46.0); LYMPH % 23.1 % (9.0-44.0); LYMPHOCYTE # 2.1 TH/MM3 (1.0-4.8); MEAN CELL VOLUME 68.5 FL (80.0-100.0); MEAN CORPUSCULAR HEMOGLOBIN 22.8 PG (27.0-34.0); MEAN CORPUSCULAR HGB CONC 33.2 % (32.0-36.0); MONO % 7.1 % (0.0-8.0); NEUT % 66.9 % (16.0-70.0); PLATELET COUNT 167 TH/MM3 (150-450); RED CELL DISTRIBUTION WIDTH 21.8 % (11.6-17.2); WHITE BLOOD COUNT 9.2 TH/MM3 (4.0-11.0)
[2016-10-16] MEDS ORDERED: LORazepam 2 MG/ML VIAL IV PUSH ONE (12:00)
[2016-10-16] MEDS ORDERED: FAMOTIDINE 20 MG/2 ML VIAL IV PUSH ONE (12:00)
[2016-10-16 12:05] LABS: HEMO FLAGS AUTO DIFF
[2016-10-16 12:09] LABS: APTT (PATIENT) 28.5 SEC (24.3-30.1); PROTHROMBIN TIME - PATIENT 10.8 SEC (9.8-11.6)
[2016-10-16 12:16] LABS: BACTERIA, URINE FEW /hpf; BLOOD, URINE MOD (NEG); COMMENT (UR) CATH-CULTURE IND; CULTURE IF INDICATED CATH CULTURE IND; GLUCOSE,URINE NEG (NEG); HYALINE CAST, URINE 37 /lpf (RARE); KETONE, URINE NEG (NEG); MUCUS URINE FEW /lpf (OCC); NITRITE,URINE NEG (NEG); PH, URINE 5.5 (5.0-8.5); SQUAMOUS EPITHELIAL CELL URINE 2 /hpf (0-5); URINE COLOR YELLOW (YELLW/STRAW)
[2016-10-16 12:17] LABS: ALT (GPT) 46 U/L (10-53); ANION GAP 10 MEQ/L (5-15); AST (GOT) 35 U/L (15-37); BICARBONATE 25.5 MEQ/L (21.0-32.0); BLOOD UREA NITROGEN 13 MG/DL (7-18); CHLORIDE 100 MEQ/L (98-107); GLOMERULAR FILTRATION RATE 63 ML/MIN (>89); SODIUM (NA) 135 MEQ/L (136-145)
[2016-10-16 12:20] LABS: ALKALINE PHOSPHATASE 87 U/L (45-117); TOTAL BILIRUBIN ADULT 0.4 MG/DL (0.2-1.0)
--- NOTE | 2016-10-16 12:21 | RADRPT ---
EXAM DATE/TIME: 10/16/2016 12:08 [facility] COMPARISON: CHEST SINGLE AP, October 09, 2016, 19:46. INDICATIONS : Abdominal pain and chest discomfort. MEDICAL HISTORY : None. SURGICAL HISTORY : None. ENCOUNTER: Initial ACUITY: 1 day PAIN SCORE: 10/10 LOCATION: Bilateral chest FINDINGS: A single view of the chest demonstrates the lungs to be symmetrically aerated without evidence of mas s, infiltrate or effusion. The cardiomediastinal contours are unremarkable. Osseous structures are intact. CONCLUSION: No acute disease. Gavino Ye MD on October 16, 2016 at 12:18 Board Certified Radiologist. This report was verified electronically.
[2016-10-16 12:32] LABS: SCAN/DIFF AUTO DIFF CONFIRMED
[2016-10-16 13:25] VITALS: O2SAT 98
--- NOTE | 2016-10-16 13:29 | RADRPT ---
EXAM DATE/TIME: 10/16/2016 12:54 [facility] COMPARISON: CT ABDOMEN & PELVIS W/O CONTRAST, June 28, 2016, 0:00. INDICATIONS : Lower abdomen pain today. ORAL CONTRAST: No oral contrast ingested. RADIATION DOSE: 16.78 CTDIvol (mGy) MEDICAL HISTORY : Cardiovascular disease. SURGICAL HISTORY : Cholecystectomy. ENCOUNTER: Initial ACUITY: 1 day PAIN SCALE: 8/10 LOCATION: Bilateral lower quadrant TECHNIQUE: Volumetric scanning of the abdomen and pelvis was performed. Using automated exposure control and ad justment of the mA and/or kV according to patient size, radiation dose was kept as low as reasonably achievable to obtain optimal diagnostic quality images. FINDINGS: LOWER LUNGS: The visualized lower lungs are clear. LIVER: Homogeneous density without lesion. There is no dilation of the biliary tree. The patient is status post cholecystectomy. There is motion artifact. Diffuse moderate steatosis is present. SPLEEN: Normal size without lesion. PANCREAS: Within normal limits. KIDNEYS: Normal in size and shape. There is no mass, stone, or hydronephrosis. ADRENAL GLANDS: Within normal limits. VASCULAR: There is no aortic aneurysm. BOWEL/MESENTERY: There are multiple loops of nondilated air-containing small bowel with multiple air-fluid levels. The colon is decompressed. There is no free air or fluid. No oral contrast was given limiting the sensit ivity. There is a normal appendix. ABDOMINAL WALL: Within normal limits. RETROPERITONEUM: There is no lymphadenopathy. BLADDER: No wall thickening or mass. REPRODUCTIVE: Within normal limits. INGUINAL: There is no lymphadenopathy or hernia. MUSCULOSKELETAL: Within normal limits for patient age. CONCLUSION: 1. Nonspecific, nonobstructive bowel gas pattern with multiple loops of nondilated air-containing sma ll bowel small air-fluid levels. There is no free air or fluid. There is a normal appendix. 2. Moderate hepatic steatosis. 3. Status post cholecystectomy. Gavino Ye MD on October 16, 2016 at 13:25 Board Certified Radiologist. This report was verified electronically.
[2016-10-16] MEDS ORDERED: CIPROFLOXACIN 200 MG PREMIX 100 ML IV ONE (13:45)
[2016-10-16] MEDS ORDERED: GLUCAGON 1 MG/ML VIAL OTHER PRN (14:00)
[2016-10-16] MEDS ORDERED: DEXTROSE 50% IN WATER 50 ML VIAL(D50) IV PUSH PRN (14:00)
--- NOTE | 2016-10-16 14:10 | HHI.HP ---
[facility] Non-Staff Admission Diagnosis intractable abdominal pain, gastroenteritis, UTI Diagnoses: (1) Abdominal pain Diagnosis: Principal (2) UTI (urinary tract infection) Diagnosis: Principal Chief Complaint: abdominal pain Travel History International Travel<30 Days: No Contact w/Intl Traveler <30 Da: No Traveled to Known Affected Are: No History of Present Illness patient is a 46 y/o female with history of PUD, lupus, diabetes and fibromyalgia presented to ER with abdominal pain. she says that she's had this pain for a few years but it gets worse at times. this time the pain started to get worse yesterday. she says that the pain starts in RUQ and gradually shifts to the epigastric area. pain was associated with nausea. she says that she also has chronic diarrhea but over the past one week she had some blood with the stool everyday. she had cholecystectomy two years ago. she also had EGD a couple of years ago when she was told that she had gastritis and peptic ulcer disease. she denies taking NSAIDs. Review of Systems Constitutional: DENIES: Fever, Weight loss, Chills, Night Sweats Eyes: DENIES: Blurred vision, Diplopia, Vision loss, Double Vision Ears, nose, mouth, throat: DENIES: Tinnitus, Vertigo, Throat pain, Epistaxis Respiratory: DENIES: Apneas, Cough, Snoring, Wheezing, Hemoptysis, Sputum production, Shortness of breath Cardiovascular: DENIES: Chest pain, Palpitations, Syncope, Dyspnea on Exertion , PND, Lower Extremity Edema, Orthopnea, Claudication Gastrointestinal: COMPLAINS OF: Abdominal pain, Bloody stools, Nausea, DENIES : Black stools, Constipation, Diarrhea, Vomiting, Difficulty Swallowing, Anorexia Genitourinary: DENIES: Urinary frequency, Urgency, Hematuria, Dysuria Musculoskeletal: DENIES: Joint pain, Muscle aches, Stiffness, Joint Swelling Integumentary: DENIES: Rash Neurologic: DENIES: Abnormal gait, Headache, Localized weakness, Paresthesias, Seizures, Speech Problems, Tremor, Poor Balance Psychiatric: DENIES: Anxiety, Confusion, Mood changes, Depression, Hallucinations, Agitation, Suicidal Ideation, Homicidal Ideation, Delusions Past Family Social History Past Medical History lupus diabetes mellitus PUD fibromyalgia asthma Past Surgical History cholecystectomy Reported Medications lyrica cymbalta metformin omeprazole albuterol Allergies: Coded Allergies: Iodine (Verified Allergy, Severe, Anaphylaxis, 10/16/16) Shellfish (Verified Allergy, Severe, Anaphylaxis, 10/16/16) Theophylline (Verified Allergy, Severe, Anaphylaxis, 10/16/16) Aminophylline (Verified Allergy, Intermediate, MAKES HER HYPER ELEVATES BP , 10/16/16) Benadryl (Verified Allergy, Intermediate, palpitations, 10/16/16) Naprosyn (Verified Allergy, Intermediate, Rash, 10/16/16) Penicillin (Verified Allergy, Intermediate, RASH, 10/16/16) Broccoli (Verified Allergy, Unknown, 10/16/16) Imuran (Verified Allergy, Unknown, 10/16/16) Keflex (Verified Allergy, Unknown, 10/16/16) Motrin (Verified Adverse Reaction, Mild, LUPUS, 10/16/16) Uncoded Allergies: Eggplant (Allergy, Intermediate, 10/09/16) AMRNOHILSON (Adverse Reaction, Severe, 10/09/16) .. Active Ordered Medications Current Medications Morphine Sulfate (Morphine Inj) 4 mg ONCE ONCE IV PUSH Last administered on 11:44; Start 10/16/16 at 11:45; Stop 10/16/16 at 11:46; Status DC Ondansetron HCl 4 mg 4 mg ONCE ONCE IVP Last administered on 10/16/16 11:44; Start 10/16/16 at 11:45; Stop 10/16/16 at 11:46; Status DC Sodium Chloride (NS 1000 ml Inj) 1,000 ml @ 1,000 mls/hr Q1H IV Last administered on 10/16/16 11:44; Start 10/16/16 at 11:34; Stop 10/16/16 at 12:33; Status DC Lorazepam (Ativan Inj) 1 mg ONCE ONCE IV PUSH Last administered on 10/16/16 11 :55; Start 10/16/16 at 12:00; Stop 10/16/16 at 12:01; Status DC Famotidine (Pepcid Inj) 20 mg ONCE ONCE IV PUSH Last administered on 5/7/17at 12:14; Start 10/16/16 at 12:00; Stop 10/16/16 at 12:01; Status DC Morphine Sulfate 4 mg 4 mg ONCE ONCE IV PUSH ; Start 10/16/16 at 13:45; Stop 10/16/16 at 13:46; Status DC Ciprofloxacin/ Dextrose (Cipro 200 Mg Premix) 100 ml @ 100 mls/hr ONCE ONCE IV ; Start 10/16/16 at 13:45; Stop 10/16/16 at 14:44 Ondansetron HCl 4 mg 4 mg Q8HR PRN IV PUSH NAUSEA; Start 10/16/16 at 14:00 Sodium Chloride (NS 1000 ml Inj) 1,000 ml @ 100 mls/hr Q10H IV ; Start 10/16/16 at 14:00 Dextrose (D50w (Vial) Inj) 25 ml UNSCH PRN IV PUSH HYPOGLYCEMIA-SEE COMMENTS; Start 10/16/16 at 14:00 Glucagon (Glucagon Inj) 1 mg UNSCH PRN OTHER HYPOGLYCEMIA-SEE COMMENTS; Start 10/16/16 at 14:00 Insulin Aspart 1 1 ACHS SLIDING SCALE SQ ; Start 10/16/16 at 16:00 Ciprofloxacin/ Dextrose (Cipro 200 Mg Premix) 100 ml @ 100 mls/hr Q12H IV ; Start 10/17/16 at 02:00; Status UNV Pantoprazole Sodium (Protonix Inj) 40 mg Q24H IV PUSH ; Start 10/16/16 at 14:15; Status UNV Albuterol Sulfate (Proair Hfa Inh) 1 puff Q4H PRN INH SHORTNESS OF BREATH; Start 10/16/16 at 14:15; Status UNV Duloxetine HCl (Cymbalta Dr) 20 mg DAILY PO ; Start 10/17/16 at 09:00; Status UNV Duloxetine HCl (Cymbalta Dr) 20 mg DAILY PO ; Start 10/17/16 at 09:00; Status UNV Pregabalin (Lyrica) 50 mg DAILY PO ; Start 10/17/16 at 09:00; Status UNV Social History no smoking or drinking. Physical Exam Vital Signs Vital Signs Date Time Temp Pulse Resp B/P Pulse Ox O2 Delivery O2 Flow Rate FiO2 10/16/16 11:25 98.4 124 28 126/86 97 Room Air Physical Exam GENERAL: This is a well-nourished, well-developed patient, in no apparent distress. SKIN: No rashes, ecchymoses or lesions. Cool and dry. HEAD: Atraumatic. Normocephalic. No temporal or scalp tenderness. EYES: Pupils equal round and reactive. Extraocular motions intact. No scleral icterus. No injection or drainage. ENT: Nose without bleeding, purulent drainage or septal hematoma. Throat without erythema, tonsillar hypertrophy or exudate. Uvula midline. Airway patent. NECK: Trachea midline. No JVD or lymphadenopathy. Supple, nontender, no meningeal signs. CARDIOVASCULAR: Regular rate and rhythm without murmurs, gallops, or rubs. RESPIRATORY: Clear to auscultation. Breath sounds equal bilaterally. No wheezes , rales, or rhonchi. GASTROINTESTINAL: Abdomen soft, generalized tenderness, nondistended. No hepato- splenomegaly, or palpable masses. No guarding. MUSCULOSKELETAL: Extremities without clubbing, cyanosis, or edema. No joint tenderness, effusion, or edema noted. No calf tenderness. Negative Homans sign bilaterally. NEUROLOGICAL: Awake and alert. Cranial nerves II through XII intact. Motor and sensory grossly within normal limits. Five out of 5 muscle strength in all muscle groups. Normal speech. Laboratory Laboratory Tests Test 10/16/16 10/16/16 11:45 11:49 White Blood Count 9.2 Red Blood Count 5.10 Hemoglobin 11.6 Hematocrit 34.9 Mean Corpuscular Volume 68.5 Mean Corpuscular Hemoglobin 22.8 Mean Corpuscular Hemoglobin 33.2 Concent Red Cell Distribution Width 21.8 Platelet Count 167 Mean Platelet Volume 10.3 Neutrophils (%) (Auto) 66.9 Lymphocytes (%) (Auto) 23.1 Monocytes (%) (Auto) 7.1 Eosinophils (%) (Auto) 2.4 Basophils (%) (Auto) 0.5 Neutrophils # (Auto) 6.2 Lymphocytes # (Auto) 2.1 Monocytes # (Auto) 0.7 Eosinophils # (Auto) 0.2 Basophils # (Auto) 0.0 CBC Comment AUTO DIFF Differential Comment AUTO DIFF CONFIRMED Prothrombin Time 10.8 Prothromb Time International 1.0 Ratio Activated Partial 28.5 Thromboplast Time Urine Color YELLOW Urine Turbidity HAZY Urine pH 5.5 Urine Specific [place] 1.019 Urine Protein TRACE Urine Glucose (UA) NEG Urine Ketones NEG Urine Occult Blood MOD Urine Nitrite NEG Urine Bilirubin NEG Urine Urobilinogen LESS THAN 2.0 Urine Leukocyte Esterase LARGE Urine RBC 45 Urine WBC 15 Urine WBC Clumps FEW Urine Squamous Epithelial 2 Cells Urine Amorphous Sediment RARE Urine Bacteria FEW Urine Hyaline Casts 37 Urine Mucus FEW Microscopic Urinalysis Comment CATH-CULTURE IND Sodium Level 135 Potassium Level 4.0 Chloride Level 100 Carbon Dioxide Level 25.5 Anion Gap 10 Blood Urea Nitrogen 13 Creatinine 0.96 Estimat Glomerular Filtration 63 Rate Random Glucose 102 Calcium Level 9.3 Total Bilirubin 0.4 Aspartate Amino Transf 35 (AST/SGOT) Alanine Aminotransferase 46 (ALT/SGPT) Alkaline Phosphatase 87 Troponin I LESS THAN 0.02 Total Protein 8.5 Albumin 4.0 Lipase 361 Lactic Acid Level 2.1 Date/Time Procedure Status Source Growth 10/16/16 11:45 Urine Culture Received Urine Catheterized Urine Pending Result Diagram: 10/16/16 1145 10/16/16 1145 Imaging Last Impressions Chest X-Ray 10/16/16 0000 Signed Impressions: Service Date/Time: Sunday, October 16, 2016 12:08 - CONCLUSION: No acute disease. Gavino Ye MD Abdomen/Pelvis CT 10/16/16 0000 Signed Impressions: Service Date/Time: Sunday, October 16, 2016 12:54 - CONCLUSION: 1. Nonspecific, nonobstructive bowel gas pattern with multiple loops of nondilated air-containing small bowel small air-fluid levels. There is no free air or fluid. There is a normal appendix. 2. Moderate hepatic steatosis. 3. Status post cholecystectomy. Gavino Ye MD EKG; sinus rhythm with no acute ST-T changes Assessment and Plan Assessment and Plan A/P - intractable abdominal pain with two history of intermittent abdominal pain, diarrhea NPO for now- start IV fluid- continue pain control- stool studies- consult GI -UTI- start Abx- follow the UC -diabetes mellitus; accu-check with SSI- hold metformin -fibromyalgia; resume home meds -lupus- f/u as outpatient -DVT prophylaxis with SCD's Discussed Condition With ER and the patient. Problem Qualifiers (1) Abdominal pain: Qualified Code: R10.11 - Right upper quadrant abdominal pain (2) UTI (urinary tract infection): Qualified Code: N30.01 - Acute cystitis with hematuria Hero Moon MD October 16, 2016 14:10
[2016-10-16] MEDS ORDERED: ONDANSETRON HCL 4 MG/2 ML VIAL IV PUSH ONE (14:45)
[2016-10-16] MEDS ORDERED: ALBUTEROL SULFATE 90 MCG/ACT HFA 18 GM INHALER INH PRN (15:00)
[2016-10-16] MEDS: SODIUM CHLOR 0.9% 1000 ML INJ 1,000 ML IV SCH (15:12)
[2016-10-16 15:30] VITALS: BP 128/76; PULSE 92; RESP 20; TEMP 98.3; O2SAT 98
[2016-10-16] MEDS: PANTOPRAZOLE SODIUM 40 MG VIAL IV PUSH SCH (16:00)
--- NOTE | 2016-10-16 16:30 | MB ---
cc: DOROTHEA DENNIS M.D. DATE OF CONSULTATION: 10/16/2016. REASON FOR CONSULTATION: Abdominal pain, nausea and vomiting. PATIENT OF: Dr. Moon. HISTORY OF PRESENT ILLNESS: Ms. Chaudhry is a 46-year-old lady who says she has been having abdominal pain on and off for many years. She says two years ago in [place] she had her gallbladder removed but this did not really help her symptoms. She states she has crampy pain mostly in the right upper quadrant, particularly on movement, especially if she bends down to tie her shoelaces. She says previously the attack comes and goes but recently it has been a constant pain which she could not handle so she came to the hospital. She says she has lost about 14 pounds recently but she was started on metformin after her doctor told her that she had a fatty liver. She is also having some nausea. No hematemesis or hematochezia. REVIEW OF SYSTEMS: Abdominal pain, otherwise no symptoms at this time. PAST MEDICAL HISTORY: 1. Lupus. 2. Diabetes. 3. Peptic ulcer disease. 4. Fibromyalgia. 5. Asthma. PAST SURGICAL HISTORY: 1. Cholecystectomy. 2. Endoscopy about five or six years ago in [place]. MEDICATIONS ON ADMISSION: 1. Lyrica. 2. Cymbalta. 3. Metformin. 4. Omeprazole. 5. Albuterol inhaler. ALLERGIES: 1. IODINE. 2. SHELLFISH. 3. NAPROSYN. 4. PENICILLIN. PHYSICAL EXAMINATION: GENERAL: The physical exam reveals a well-nourished lady in no apparent distress. VITAL SIGNS: Stable. HEAD AND NECK: Anicteric sclerae. CHEST: Bilateral air entry ABDOMEN: Abdomen is soft. Tenderness in the epigastric area. No guarding. No rigidity. FIRE BOSS: Nonfocal. RECTAL: Deferred at this time. LABORATORY STUDIES: labs reveal normal liver function tests. Lipase is normal. IMAGING STUDIES: CT abdomen and pelvis reveals a fatty liver, nonspecific air and fluid in the intestines and the patient is status post cholecystectomy. IMPRESSION: Abdominal pain of unclear etiology. RECOMMENDATIONS: 1. Bentyl 10 milligrams three times a day. 2. EGD discussed with the patient and this will be scheduled for tomorrow. Further recommendations to follow after the above. Dr. Payne will follow from tomorrow. Thank you for this referral. MD CLARICE Gongora /4:12 PM /4:24 PM
[2016-10-16 17:02] VITALS: BP 103/68; PULSE 87; RESP 20; O2SAT 99
[2016-10-16] MEDS: DICYCLOMINE HCL 20 MG TAB PO SCH (18:00)
[2016-10-16] MEDS: INSULIN ASPART SUPPLEMENTAL SCALE SQ SCH ×2 (18:15→20:27)
[2016-10-16 18:24] VITALS: BP 130/65; PULSE 98; RESP 18; TEMP 97.8; O2SAT 97
[2016-10-16] MEDS: ONDANSETRON HCL 4 MG/2 ML VIAL IV PUSH PRN (19:36)
[2016-10-16] MEDS: MORPHINE SULFATE 4 MG/ML INJ IV PUSH PRN (19:37)
[2016-10-17 00:10] VITALS: BP 119/62; PULSE 88; RESP 20; TEMP 97.4; O2SAT 96
[2016-10-17 04:00] VITALS: BP 122/68; PULSE 82; RESP 20; TEMP 97.9; O2SAT 95
[2016-10-17] MEDS: CIPROFLOXACIN 200 MG PREMIX 100 ML IV SCH ×2 (05:02→17:20)
[2016-10-17] MEDS: INSULIN ASPART SUPPLEMENTAL SCALE SQ SCH ×4 (06:26→21:00)
[2016-10-17 06:58] LABS: BASOPHIL % 0.5 % (0.0-2.0); EOSINOPHIL # 0.2 TH/MM3 (0-0.4); EOSINOPHIL % 2.7 % (0.0-4.0); HEMATOCRIT 31.6 % (35.0-46.0); LYMPH % 27.8 % (9.0-44.0); LYMPHOCYTE # 1.8 TH/MM3 (1.0-4.8); MEAN CELL VOLUME 69.3 FL (80.0-100.0); MEAN CORPUSCULAR HEMOGLOBIN 22.2 PG (27.0-34.0); MEAN CORPUSCULAR HGB CONC 32.1 % (32.0-36.0); PLATELET COUNT 154 TH/MM3 (150-450); RED BLOOD COUNT 4.55 MIL/MM3 (4.00-5.30); RED CELL DISTRIBUTION WIDTH 21.3 % (11.6-17.2); WHITE BLOOD COUNT 6.4 TH/MM3 (4.0-11.0)
[2016-10-17 07:00] LABS: HEMO FLAGS AUTO DIFF
[2016-10-17 07:01] LABS: PLATELET ESTIMATE SMEAR NORMAL (NORMAL); PLATELET MORPHOLOGY ENLARGED (NORMAL); SCAN/DIFF AUTO DIFF CONFIRMED
--- NOTE | 2016-10-17 08:18 | HHI.FPPN ---
Subjective Remarks C/O CP C/O ABDOM PAIN V NERVOUS D/W RN Objective Vitals Vital Signs Date Time Temp Pulse Resp B/P Pulse Ox O2 Delivery O2 Flow Rate FiO2 10/17/16 04:00 97.9 82 20 122/68 95 10/17/16 00:10 97.4 88 20 119/62 96 10/16/16 23:24 20 10/16/16 18:24 97.8 98 18 130/65 97 10/16/16 17:02 87 20 103/68 99 Room Air 10/16/16 15:30 98.3 92 20 128/76 98 Room Air 10/16/16 13:25 98 Room Air 10/16/16 11:30 98.7 92 22 136/78 98 Room Air 10/16/16 11:25 98.4 124 28 126/86 97 Room Air Result Diagram: 10/17/16 0434 10/16/16 1145 Objective Remarks GENERAL: SKIN: Warm and dry. HEAD: Atraumatic. Normocephalic. EYES: Pupils equal and round. No scleral icterus. No injection or drainage. ENT: No nasal bleeding or discharge. Mucous membranes pink and moist. NECK: Trachea midline. No JVD. CARDIOVASCULAR: Regular rate and rhythm. RESPIRATORY: No accessory muscle use. Clear to auscultation. Breath sounds equal bilaterally. GASTROINTESTINAL: Abdomen soft, non-tender, nondistended. Hepatic and splenic margins not palpable. MUSCULOSKELETAL: Extremities without clubbing, cyanosis, or edema. No obvious deformities. NEUROLOGICAL: Awake and alert. No obvious cranial nerve deficits. Motor grossly within normal limits. Five out of 5 muscle strength in the arms and legs. Normal speech. PSYCHIATRIC: Appropriate mood and affect; insight and judgment normal. Medications and IVs Current Medications Medications (Trade) Dose Ordered Sig/Viviane Route Start Time Stop Time Status Last Admin Ondansetron HCl 4 mg 4 mg Q8HR PRN IV PUSH 10/16/16 14:00 10/16/16 19:36 (NS 1000 ml Inj) 1,000 ml @ 100 mls/hr Q10H IV 10/16/16 14:00 10/17/16 00:00 (D50w (Vial) Inj) 25 ml UNSCH PRN IV PUSH 10/16/16 14:00 Glucagon 1 mg 1 mg UNSCH PRN OTHER 10/16/16 14:00 (Cipro 200 Mg Premix) 100 ml @ 100 mls/hr Q12H IV 10/17/16 05:00 10/17/16 05:02 (Ventolin Hfa Inh) 1 puff Q4H PRN INH 10/16/16 15:00 (Cymbalta Dr) 20 mg DAILY PO 10/17/16 09:00 (Lyrica) 50 mg DAILY PO 10/17/16 09:00 (Morphine Inj) 2 mg Q4HR PRN IV PUSH 10/16/16 14:30 10/16/16 19:37 (Protonix Inj) 40 mg Q24H IV PUSH 10/16/16 16:00 10/16/16 16:00 (Bentyl) 20 mg TID PO 10/16/16 18:00 A/P Problem List: (1) possible IBD Status: Acute (2) Diabetes Status: Chronic (3) HTN (hypertension) Status: Chronic (4) Muscle spasm Status: Acute (5) Chest tightness or pressure Status: Acute (6) Gastroenteritis Status: Acute (7) UTI (urinary tract infection) Status: Acute (8) Abdominal pain Status: Acute (9) Asthma exacerbation Status: Acute Plan: - intractable abdominal pain with history of intermittent abdominal pain, diarrhea NPO for now- IV fluid- continue pain control- stool studies- consult GI -UTI- Abx- follow the UC -diabetes mellitus; accu-check with SSI- hold metformin -fibromyalgia; resume home meds -lupus- f/u as outpatient -DVT prophylaxis with SCD's Problem Qualifiers (1) UTI (urinary tract infection): Qualified Code: N30.01 - Acute cystitis with hematuria (2) Abdominal pain: Qualified Code: R10.11 - Right upper quadrant abdominal pain Bubba Reddy MD October 17, 2016 08:18
[2016-10-17 08:32] VITALS: BP 118/67; PULSE 80; RESP 20; TEMP 98.8; O2SAT 97
[2016-10-17] MEDS: MORPHINE SULFATE 4 MG/ML INJ IV PUSH PRN ×2 (09:00→18:14)
[2016-10-17] MEDS: ONDANSETRON HCL 4 MG/2 ML VIAL IV PUSH PRN ×3 (09:00→20:17)
[2016-10-17] MEDS ORDERED: PANTOPRAZOLE SODIUM 40 MG VIAL IV PUSH SCH ×2 (09:00)
[2016-10-17] MEDS: DICYCLOMINE HCL 20 MG TAB PO SCH ×4 (09:00→16:56)
[2016-10-17] MEDS ORDERED: DULoxetine HCl DR 20 MG CAP PO SCH (09:00)
[2016-10-17] MEDS: SODIUM CHLOR 0.9% 1000 ML INJ 1,000 ML IV SCH ×3 (10:00→20:00)
--- NOTE | 2016-10-17 11:27 | EKG ---
Date Performed: 10/16/2016 Time Performed: 11:41:55 PTAGE: 46 years EKG: Sinus rhythm NORMAL ECG INTERPRETATION BASED ON A DEFAULT AGE OF 41 YEARS PREVIOUS TRACING : 10/09/2016 19.50 DOCTOR: Kain Luna Interpretating Date/Time 10/17/2016 11:21:29
[2016-10-17] MEDS ORDERED: ONDANSETRON HCL 4 MG/2 ML VIAL IV PUSH ONE (12:00)
[2016-10-17] MEDS ORDERED: FAMOTIDINE 20 MG/2 ML VIAL IV PUSH ONE (12:18)
[2016-10-17] MEDS ORDERED: PROPOFOL 200 MG/20 ML AMP IV ONE (13:40)
--- NOTE | 2016-10-17 13:52 | GIPROC ---
[facility] [address] [facility]. [facility], [address] EGD PROCEDURE REPORT EXAM DATE: 10/17/2016 PATIENT NAME: Prachi Chaudhry MR #: [id number] BIRTHDATE: 1970 ATTENDING: Jia Payne MD ORDER #: [id number] PROCESSING SPECIALIST: Brock Palacios and Dot Chen STATUS: inpatient INDICATIONS: The patient is a 46 yr old female here for an EGD due to reflux, nausea, vomiting, abdominal pain PROCEDURE PERFORMED: EGD w/ biopsy MEDICATIONS: None and Per Anesthesia. TOPICAL ANESTHETIC: none CONSENT: The patient understands the risks and benefits of the procedure and understands that these risks include, but are not limited to: sedation, allergic reaction, infection, perforation and/or bleeding. Alternative means of evaluation and treatment include, among others: physical exam, x-rays, and/or surgical intervention. The patient elects to proceed with this endoscopic procedure. medical equipment was checked for proper function. Hand hygiene and appropriate measures for infection prevention was taken. After the risks, benefits and alternatives of the procedure were thoroughly explained, Informed consent was verified, confirmed and timeout was successfully executed by the treatment team. The patient was anesthetized with topical anesthesia and the Pentax EG-[id number] endoscope was introduced through the mouth and advanced to the second portion of the duodenum. Retroflexed views revealed a hiatal hernia The gastroscope was then slowly withdrawn and removed. Gastritis antrum-biopsy duoddenitis second portion-biopsy esophagitis distal esophagus-biopsy. ADVERSE EVENTS: There were no complications. IMPRESSIONS: 1. Gastritis antrum-biopsy duoddenitis second portion-biopsy esophagitis distal esophagus-biopsy 2. Retroflexed views revealed a hiatal hernia RECOMMENDATIONS: 1. Await biopsy results. Biopsy results will not be ready for 7-10 days. If you don't hear from us in two weeks, call our office for biopsy results. 2. Anti-reflux regimen 3. Start PPI 4. Clear liquid diet mrcp gastric emptying study colonoscopy once able to tolerate po PATIENT CONDITION: stable DISPOSITION: Inpatient REPEAT EXAM: EGD pending biopsy results Jia Payne MD eSigned: Jia Payne MD 10/17/2016 1:52 PM cc: PATIENT NAME: Prachi Chaudhry MR#: [id number]
[2016-10-17] MEDS ORDERED: DO NOT ADM ANY ANTICOAGULANT DRUGS PRN (13:56)
[2016-10-17 15:45] VITALS: BP 127/75; PULSE 85; RESP 18; TEMP 99; O2SAT 97
[2016-10-17] MEDS: PANTOPRAZOLE SODIUM 40 MG VIAL IV PUSH SCH (16:47)
[2016-10-17] MEDS: PREGABALIN 25 MG CAP PO SCH ×2 (16:55→17:17)
[2016-10-17] MEDS: DULoxetine HCl DR 20 MG CAP PO SCH (16:55)
[2016-10-17 23:09] VITALS: BP 116/66; PULSE 83; RESP 18; TEMP 98.2; O2SAT 96
[2016-10-18 04:24] VITALS: BP 116/67; PULSE 84; RESP 18; TEMP 98; O2SAT 95
[2016-10-18] MEDS: CIPROFLOXACIN 200 MG PREMIX 100 ML IV SCH ×2 (05:00→18:19)
[2016-10-18 05:07] LABS: AUTOMATED NEUTROPHIL # 3.8 TH/MM3 (1.8-7.7); BASOPHIL % 0.5 % (0.0-2.0); EOSINOPHIL # 0.1 TH/MM3 (0-0.4); EOSINOPHIL % 2.5 % (0.0-4.0); HEMATOCRIT 29.9 % (35.0-46.0); LYMPHOCYTE # 1.5 TH/MM3 (1.0-4.8); MEAN CELL VOLUME 68.9 FL (80.0-100.0); MEAN CORPUSCULAR HEMOGLOBIN 22.5 PG (27.0-34.0); MEAN CORPUSCULAR HGB CONC 32.6 % (32.0-36.0); MONO % 7.8 % (0.0-8.0); NEUT % 64.2 % (16.0-70.0); RED BLOOD COUNT 4.34 MIL/MM3 (4.00-5.30); RED CELL DISTRIBUTION WIDTH 21.3 % (11.6-17.2); WHITE BLOOD COUNT 5.9 TH/MM3 (4.0-11.0)
[2016-10-18 05:32] LABS: BICARBONATE 28.3 MEQ/L (21.0-32.0); POTASSIUM 3.2 MEQ/L (3.5-5.1)
[2016-10-18] MEDS: SODIUM CHLOR 0.9% 1000 ML INJ 1,000 ML IV SCH ×2 (05:48→16:00)
[2016-10-18 06:49] LABS: HEMO FLAGS AUTO DIFF
[2016-10-18 06:51] LABS: PLATELET COUNT 140 TH/MM3 (150-450)
[2016-10-18 06:53] LABS: BASOPHILS 2 % (0-2); EOSINOPHILS 2 % (0-4); METAMYELOCYTES 1 % (0-1); NEUTROPHIL # MANUAL DIFF 4.1 TH/MM3 (1.8-7.7); POLYS (SEG NEUTROPHILS) 69 % (16-70); WBC DIFF SAMPLE 100
[2016-10-18 06:54] LABS: PLATELET MORPHOLOGY ENLARGED (NORMAL); SCAN/DIFF FINAL DIFF MANUAL
[2016-10-18] MEDS: INSULIN ASPART SUPPLEMENTAL SCALE SQ SCH ×4 (07:00→21:00)
[2016-10-18] MEDS: ONDANSETRON HCL 4 MG/2 ML VIAL IV PUSH PRN ×2 (07:59→20:50)
[2016-10-18 08:10] VITALS: BP 133/80; PULSE 89; RESP 20; TEMP 99; O2SAT 95
[2016-10-18] MEDS: DICYCLOMINE HCL 20 MG TAB PO SCH ×3 (09:00→18:19)
[2016-10-18] MEDS: DULoxetine HCl DR 20 MG CAP PO SCH (09:00)
--- NOTE | 2016-10-18 09:50 | RADRPT ---
EXAM DATE/TIME: 10/18/2016 08:32 [place] COMPARISON: CT ABDOMEN & PELVIS W/O CONTRAST, October 16, 2016, 12:54. INDICATIONS : Abdominal pain. MEDICAL HISTORY : Hypertension. Diabetes mellitus type 2. Lupus. SURGICAL HISTORY : section. Cholecystectomy. ENCOUNTER: Initial ACUITY: 2 day PAIN SCORE: 7/10 LOCATION: abdomen TECHNIQUE: Multiplanar, multisequence magnetic resonance imaging of the abdomen was performed. High-resolution 3D dataset was utilized to reconstruct maximum-intensity projection (MIP) images. FINDINGS: INTRAHEPATIC BILE DUCTS: Within normal limits. No significant anatomical variant is present. EXTRAHEPATIC BILE DUCTS: The common bile duct measures 9 mm. No stone or filling defect is identified. GALLBLADDER: Status post cholecystectomy. LIVER: Normal size and signal intensity. No concerning liver lesion is identified on this non-contrast exam. PANCREAS: The main pancreatic duct is normal in size. There is no significant anatomical variant. Signal inte nsity is within normal limits. No mass is visualized on this non-contrast exam. OTHER: The remaining visualized structures demonstrate no acute abnormality on this non-contrast exam. CONCLUSION: Status post cholecystectomy. Common duct within normal limits for postcholecystectomy state. Isaiah Doty MD on October 18, 2016 at 9:27 Board Certified Radiologist. This report was verified electronically.
--- NOTE | 2016-10-18 10:36 | HHI.FPPN ---
Subjective Remarks N/V C/O ABD PAIN D/W RN Objective Vitals Vital Signs Date Time Temp Pulse Resp B/P Pulse Ox O2 Delivery O2 Flow Rate FiO2 10/18/16 08:10 99.0 89 20 133/80 95 10/18/16 04:24 98.0 84 18 116/67 95 10/17/16 23:09 98.2 83 18 116/66 96 10/17/16 15:45 99.0 85 18 127/75 97 10/17/16 14:45 98.0 88 16 102/56 95 Room Air 10/17/16 14:30 87 16 102/57 98 Room Air 10/17/16 14:15 91 16 108/58 93 Room Air 10/17/16 14:00 98.0 101 16 105/60 95 Room Air I/O 10/17/16 10/17/16 10/17/16 10/18/16 10/18/16 10/18/16 07:00 15:00 23:00 07:00 15:00 23:00 Intake Total 100 ml 200 ml Balance 100 ml 200 ml Intake Oral 200 ml Other 100 ml Result Diagram: 10/18/16 0429 10/18/16 0429 Objective Remarks GENERAL: SKIN: Warm and dry. HEAD: Atraumatic. Normocephalic. EYES: Pupils equal and round. No scleral icterus. No injection or drainage. ENT: No nasal bleeding or discharge. Mucous membranes pink and moist. NECK: Trachea midline. No JVD. CARDIOVASCULAR: Regular rate and rhythm. RESPIRATORY: No accessory muscle use. Clear to auscultation. Breath sounds equal bilaterally. GASTROINTESTINAL: Abdomen soft, +tender, nondistended. Hepatic and splenic margins not palpable. MUSCULOSKELETAL: Extremities without clubbing, cyanosis, or edema. No obvious deformities. NEUROLOGICAL: Awake and alert. No obvious cranial nerve deficits. Motor grossly within normal limits. Five out of 5 muscle strength in the arms and legs. Normal speech. PSYCHIATRIC: Appropriate mood and affect; insight and judgment normal. Medications and IVs Current Medications Medications (Trade) Dose Ordered Sig/Viviane Route Start Time Stop Time Status Last Admin Ondansetron HCl 4 mg 4 mg Q8HR PRN IV PUSH 10/16/16 14:00 10/18/16 07:59 (NS 1000 ml Inj) 1,000 ml @ 100 mls/hr Q10H IV 10/16/16 14:00 10/18/16 05:48 (D50w (Vial) Inj) 25 ml UNSCH PRN IV PUSH 10/16/16 14:00 Glucagon 1 mg 1 mg UNSCH PRN OTHER 10/16/16 14:00 (Cipro 200 Mg Premix) 100 ml @ 100 mls/hr Q12H IV 10/17/16 05:00 10/18/16 05:00 (Ventolin Hfa Inh) 1 puff Q4H PRN INH 10/16/16 15:00 (Cymbalta Dr) 20 mg DAILY PO 10/17/16 09:00 (Morphine Inj) 2 mg Q4HR PRN IV PUSH 10/16/16 14:30 10/17/16 18:14 (Protonix Inj) 40 mg Q24H IV PUSH 10/16/16 16:00 10/17/16 16:47 (Bentyl) 20 mg TID PO 10/16/16 18:00 10/17/16 16:56 Miscellaneous Information ALL NURSING DEPARTME... UNSCH PRN .XX 10/17/16 13:56 10/18/16 13:55 (Lyrica) 50 mg HS PO 10/18/16 21:00 A/P Problem List: (1) possible IBD Status: Acute (2) Diabetes Status: Chronic (3) HTN (hypertension) Status: Chronic (4) Muscle spasm Status: Acute (5) Chest tightness or pressure Status: Acute (6) Gastroenteritis Status: Acute (7) UTI (urinary tract infection) Status: Acute (8) Abdominal pain Status: Acute (9) Asthma exacerbation Status: Acute Plan: - GASTRITIS ON EGD -VOMITING -intractable abdominal pain with history of intermittent abdominal pain, diarrhea IV fluid- continue pain control- stool studies- consult GI. Clear liquid diet mrcp gastric emptying study colonoscopy once able to tolerate po -UTI- Abx- follow the UC -diabetes mellitus; accu-check with SSI- hold metformin -fibromyalgia; resume home meds -lupus- f/u as outpatient -DVT prophylaxis with SCD's PT HAS BEEN OBS FOR TWO MN. EXPECT 3 MORE D INPT FOR THE ABOVE DX AND PLAN. Problem Qualifiers (1) UTI (urinary tract infection): Qualified Code: N30.01 - Acute cystitis with hematuria (2) Abdominal pain: Qualified Code: R10.11 - Right upper quadrant abdominal pain Bubba Reddy MD October 18, 2016 10:36
[2016-10-18 11:30] VITALS: BP 126/67; PULSE 87; RESP 23; TEMP 98.7; O2SAT 97
--- NOTE | 2016-10-18 12:10 | HHI.GIFU ---
Subjective Remarks Pt laying in bed, c/o nausea, vomiting, and right side abdominal pain. She said she had scant diarrhea just now. Denies blood. (Lin Montes) Objective Vitals I&O Vital Signs Date Time Temp Pulse Resp B/P Pulse Ox O2 Delivery O2 Flow Rate FiO2 10/18/16 11:30 98.7 87 23 126/67 97 10/18/16 08:10 99.0 89 20 133/80 95 10/18/16 04:24 98.0 84 18 116/67 95 10/17/16 23:09 98.2 83 18 116/66 96 10/17/16 15:45 99.0 85 18 127/75 97 10/17/16 14:45 98.0 88 16 102/56 95 Room Air 10/17/16 14:30 87 16 102/57 98 Room Air 10/17/16 14:15 91 16 108/58 93 Room Air 10/17/16 14:00 98.0 101 16 105/60 95 Room Air I/O 10/17/16 10/17/16 10/17/16 10/18/16 10/18/16 10/18/16 07:00 15:00 23:00 07:00 15:00 23:00 Intake Total 100 ml 200 ml Balance 100 ml 200 ml Intake Oral 200 ml Other 100 ml Laboratory Laboratory Tests Test 10/18/16 04:29 White Blood Count 5.9 Red Blood Count 4.34 Hemoglobin 9.7 Hematocrit 29.9 Mean Corpuscular Volume 68.9 Mean Corpuscular Hemoglobin 22.5 Mean Corpuscular Hemoglobin 32.6 Concent Red Cell Distribution Width 21.3 Platelet Count 140 Mean Platelet Volume 11.8 Neutrophils (%) (Auto) 64.2 Lymphocytes (%) (Auto) 25.0 Monocytes (%) (Auto) 7.8 Eosinophils (%) (Auto) 2.5 Basophils (%) (Auto) 0.5 Neutrophils # (Auto) 3.8 Lymphocytes # (Auto) 1.5 Monocytes # (Auto) 0.5 Eosinophils # (Auto) 0.1 Basophils # (Auto) 0.0 CBC Comment AUTO DIFF Differential Total Cells 100 Counted Neutrophils % (Manual) 69 Lymphocytes % 22 Monocytes % 4 Eosinophils % 2 Basophils % 2 Neutrophils # (Manual) 4.1 Metamyelocytes 1 Differential Comment FINAL DIFF MANUAL Platelet Estimate Platelet Morphology Comment ENLARGED Sodium Level 139 Potassium Level 3.2 Chloride Level 102 Carbon Dioxide Level 28.3 Anion Gap 9 Blood Urea Nitrogen 6 Creatinine 0.75 Estimat Glomerular Filtration 84 Rate Random Glucose 82 Calcium Level 8.7 Date/Time Procedure Status Source Growth 10/16/16 11:45 Urine Culture - Final Complete Urine Catheterized Urine Lactobacillus Species Imaging Last Impressions Cholangiopancreatography MRI 10/18/16 0000 Signed Impressions: Service Date/Time: Tuesday, October 18, 2016 08:32 - CONCLUSION: Status post cholecystectomy. Common duct within normal limits for postcholecystectomy state. Isaiah Doty MD Chest X-Ray 10/16/16 0000 Signed Impressions: Service Date/Time: Sunday, October 16, 2016 12:08 - CONCLUSION: No acute disease. Gavino Ye MD Abdomen/Pelvis CT 10/16/16 0000 Signed Impressions: Service Date/Time: Sunday, October 16, 2016 12:54 - CONCLUSION: 1. Nonspecific, nonobstructive bowel gas pattern with multiple loops of nondilated air-containing small bowel small air-fluid levels. There is no free air or fluid. There is a normal appendix. 2. Moderate hepatic steatosis. 3. Status post cholecystectomy. Gavino Ye MD Physical Exam HEENT: EOMI; atraumatic; no jaundice. CHEST: CTA CARDIAC: RRR ABDOMEN: Soft, obese, TTP RUQ and epigastric region; no hepatosplenomegaly; bowel sounds are present in all four quadrants. EXTREMITIES: No clubbing, cyanosis, or edema. SKIN: Normal; no rash; no jaundice. DIVER HELPER: No focal deficits; alert and oriented times three. (Lin Montes [facility]) Assessment and Plan Plan ASSESSMENT: - Abdominal pain - unclear etiology. MRCP 10-18-16 ---> s/p cholecystectomy, CBD within normal limits for post cholecystectomy state. 10-16-16 CTabd ---> nonsepcific non obstructive bowel gas pattern with multiple loops nondilated air containign small bowel small air fluid levels. no free air or fluid, normal appendix, moderate hepatic steatosis, status post cholecytectomy. s/p EGD 10-17-16 --> duodenitis, esophagitis. PPI. Will add carafate, if she remains symptomatic consider GES. - N/V - unclear etiology, imaging as above. Pt does have hx diabetes, consider GES PLAN - await bx from EGD - continue PPI - add carafate - clears for now - consider GES - supportive care - further recommendations after Dr Payne sees pt This pt seen by myself and Dr Payne and this note is written on her behalf ( Lin Montes) Physician Comments agree with above gastric emptying colonoscopy once able to tolerate po better (Jia Payne MD) Lin Montes October 18, 2016 12:10 Jia Payne MD October 18, 2016 19:49
[2016-10-18 15:31] VITALS: BP 120/73; PULSE 90; RESP 17; TEMP 98.7; O2SAT 95
[2016-10-18] MEDS: SUCRALFATE 1 GM TAB PO SCH (18:19)
[2016-10-18] MEDS: PANTOPRAZOLE SODIUM 40 MG VIAL IV PUSH SCH (18:19)
[2016-10-18 19:23] VITALS: BP 131/65; PULSE 82; RESP 20; TEMP 99.9; O2SAT 96
[2016-10-18] MEDS: MORPHINE SULFATE 4 MG/ML INJ IV PUSH PRN (19:44)
[2016-10-18] MEDS ORDERED: PREGABALIN 25 MG CAP PO SCH (21:00)
[2016-10-18] MEDS: LORazepam 0.5 MG TAB PO PRN (23:44)
[2016-10-19 00:45] VITALS: BP 128/82; PULSE 75; RESP 17; TEMP 98.2; O2SAT 98
[2016-10-19] MEDS: SODIUM CHLOR 0.9% 1000 ML INJ 1,000 ML IV SCH (01:02)
[2016-10-19] MEDS: CIPROFLOXACIN 200 MG PREMIX 100 ML IV SCH (04:50)
[2016-10-19] MEDS: LORazepam 0.5 MG TAB PO PRN (05:07)
[2016-10-19 05:30] VITALS: BP 132/73; PULSE 83; RESP 16; TEMP 97; O2SAT 96
[2016-10-19] MEDS: INSULIN ASPART SUPPLEMENTAL SCALE SQ SCH ×4 (06:08→21:00)
[2016-10-19] MEDS: SUCRALFATE 1 GM TAB PO SCH ×2 (07:00→16:00)
[2016-10-19 08:29] LABS: AUTOMATED NEUTROPHIL # 4.1 TH/MM3 (1.8-7.7); BASOPHIL % 0.5 % (0.0-2.0); EOSINOPHIL # 0.1 TH/MM3 (0-0.4); EOSINOPHIL % 1.3 % (0.0-4.0); HEMATOCRIT 29.4 % (35.0-46.0); LYMPHOCYTE # 1.2 TH/MM3 (1.0-4.8); MEAN CELL VOLUME 69.8 FL (80.0-100.0); MEAN CORPUSCULAR HEMOGLOBIN 22.3 PG (27.0-34.0); MONO % 7.7 % (0.0-8.0); NEUT % 69.5 % (16.0-70.0); PLATELET COUNT 129 TH/MM3 (150-450); RED BLOOD COUNT 4.22 MIL/MM3 (4.00-5.30); RED CELL DISTRIBUTION WIDTH 20.8 % (11.6-17.2); WHITE BLOOD COUNT 5.9 TH/MM3 (4.0-11.0)
[2016-10-19 08:30] LABS: HEMO FLAGS AUTO DIFF
[2016-10-19] MEDS: ONDANSETRON HCL 4 MG/2 ML VIAL IV PUSH PRN (08:41)
[2016-10-19] MEDS: DULoxetine HCl DR 20 MG CAP PO SCH (08:42)
[2016-10-19] MEDS: DICYCLOMINE HCL 20 MG TAB PO SCH ×3 (08:42→18:24)
[2016-10-19 08:54] LABS: BICARBONATE 29.1 MEQ/L (21.0-32.0)
[2016-10-19 08:56] LABS: POTASSIUM 3.3 MEQ/L (3.5-5.1)
[2016-10-19 10:08] LABS: OVALOCYTES 1+ (NORMAL); PLATELET ESTIMATE SMEAR LOW (NORMAL); PLATELET MORPHOLOGY NORMAL (NORMAL); SCAN/DIFF AUTO DIFF CONFIRMED
--- NOTE | 2016-10-19 10:25 | HHI.FPPN ---
Objective Vitals Vital Signs Date Time Temp Pulse Resp B/P Pulse Ox O2 Delivery O2 Flow Rate FiO2 10/19/16 05:30 97.0 83 16 132/73 96 10/19/16 00:45 98.2 75 17 128/82 98 10/18/16 20:50 16 10/18/16 19:23 99.9 82 20 131/65 96 10/18/16 15:31 98.7 90 17 120/73 95 10/18/16 11:30 98.7 87 23 126/67 97 I/O 10/18/16 10/18/16 10/18/16 10/19/16 10/19/16 10/19/16 07:00 15:00 23:00 07:00 15:00 23:00 Intake Total 2910 ml 800 ml Output Total 100 ml Balance 2910 ml 700 ml Intake Oral 910 ml IV Total 2000 ml 800 ml Emesis 100 ml # Voids 4 2 # Bowel Movements 2 Result Diagram: 10/19/1637 10/19/16736 Objective Remarks GENERAL: SKIN: Warm and dry. HEAD: Atraumatic. Normocephalic. EYES: Pupils equal and round. No scleral icterus. No injection or drainage. ENT: No nasal bleeding or discharge. Mucous membranes pink and moist. NECK: Trachea midline. No JVD. CARDIOVASCULAR: Regular rate and rhythm. RESPIRATORY: No accessory muscle use. Clear to auscultation. Breath sounds equal bilaterally. GASTROINTESTINAL: Abdomen soft, +tender, nondistended. Hepatic and splenic margins not palpable. MUSCULOSKELETAL: Extremities without clubbing, cyanosis, or edema. No obvious deformities. NEUROLOGICAL: Awake and alert. No obvious cranial nerve deficits. Motor grossly within normal limits. Five out of 5 muscle strength in the arms and legs. Normal speech. PSYCHIATRIC: Appropriate mood and affect; insight and judgment normal. A/P Problem List: (1) possible IBD Status: Acute (2) Diabetes Status: Chronic (3) HTN (hypertension) Status: Chronic (4) Muscle spasm Status: Acute (5) Chest tightness or pressure Status: Acute (6) Gastroenteritis Status: Acute (7) UTI (urinary tract infection) Status: Acute (8) Abdominal pain Status: Acute (9) Asthma exacerbation Status: Acute Plan: -VOMITING -Abdominal pain, diarrhea - IV fluid- continue pain control- stool studies- consult GI. EGD 10-17-16 --> duodenitis, esophagitis. Clear liquid diet. mrcp -. gastric emptying study colonoscopy once able to tolerate po -GASTROPARESIS LIKELY -UTI- STOP CIPRO PT REQUEST -HYPOKALEMIA: IVF W K -diabetes mellitus; accu-check with SSI- hold metformin -fibromyalgia: INCR LYRICA TO TID -lupus- f/u as outpatient -DVT prophylaxis with SCD's Problem Qualifiers (1) UTI (urinary tract infection): Qualified Code: N30.01 - Acute cystitis with hematuria (2) Abdominal pain: Qualified Code: R10.11 - Right upper quadrant abdominal pain Bubba Reddy MD October 19, 2016 10:25
[2016-10-19] MEDS: 1/2 NS + KCL 20 MEQ INJ 1,000 ML IV SCH ×2 (11:37→21:33)
--- NOTE | 2016-10-19 11:39 | HHI.GIFU ---
Subjective Remarks Pt sitting on side of bed. Crying, states she has been having constant epigastric/RUQ pain with nausea/dry heaving- no relief with pain meds or zofran. Went down for GES, but was not able to tolerate because of her nausea. Zofran was given at 8am- still with nausea. (Yasmin Son) Objective Vitals I&O Vital Signs Date Time Temp Pulse Resp B/P Pulse Ox O2 Delivery O2 Flow Rate FiO2 10/19/16 05:30 97.0 83 16 132/73 96 10/19/16 00:45 98.2 75 17 128/82 98 10/18/16 20:50 16 10/18/16 19:23 99.9 82 20 131/65 96 10/18/16 15:31 98.7 90 17 120/73 95 10/18/16 11:30 98.7 87 23 126/67 97 I/O 10/18/16 10/18/16 10/18/16 10/19/16 10/19/16 10/19/16 07:00 15:00 23:00 07:00 15:00 23:00 Intake Total 2910 ml 800 ml Output Total 100 ml Balance 2910 ml 700 ml Intake Oral 910 ml IV Total 2000 ml 800 ml Emesis 100 ml # Voids 4 2 # Bowel Movements 2 Laboratory Laboratory Tests Test 10/19/16 07:37 White Blood Count 5.9 Red Blood Count 4.22 Hemoglobin 9.4 Hematocrit 29.4 Mean Corpuscular Volume 69.8 Mean Corpuscular Hemoglobin 22.3 Mean Corpuscular Hemoglobin 32.0 Concent Red Cell Distribution Width 20.8 Platelet Count 129 Mean Platelet Volume 11.1 Neutrophils (%) (Auto) 69.5 Lymphocytes (%) (Auto) 21.0 Monocytes (%) (Auto) 7.7 Eosinophils (%) (Auto) 1.3 Basophils (%) (Auto) 0.5 Neutrophils # (Auto) 4.1 Lymphocytes # (Auto) 1.2 Monocytes # (Auto) 0.5 Eosinophils # (Auto) 0.1 Basophils # (Auto) 0.0 CBC Comment AUTO DIFF Differential Comment AUTO DIFF CONFIRMED Platelet Estimate LOW Platelet Morphology Comment NORMAL Ovalocytes 1+ Sodium Level 140 Potassium Level 3.3 Chloride Level 101 Carbon Dioxide Level 29.1 Anion Gap 10 Blood Urea Nitrogen 6 Creatinine 0.72 Estimat Glomerular Filtration 88 Rate Random Glucose 97 Calcium Level 8.5 Date/Time Procedure Status Source Growth 10/18/16 10:40 Cryptosporidium Exam Resulted Stool Stool Pending 10/18/16 10:40 Giardia Antigen (CINDY) Resulted Stool Stool Pending 10/18/16 10:40 Stool Occult Blood (CINDY) - Final Resulted Stool Stool HEMOCCULT NEGATIVE 10/18/16 10:40 Received Stool Stool Pending 10/16/16 11:45 Urine Culture - Final Complete Urine Catheterized Urine Lactobacillus Species Imaging Last Impressions Cholangiopancreatography MRI 10/18/16 0000 Signed Impressions: Service Date/Time: Tuesday, October 18, 2016 08:32 - CONCLUSION: Status post cholecystectomy. Common duct within normal limits for postcholecystectomy state. Isaiah Doty MD Chest X-Ray 10/16/16 0000 Signed Impressions: Service Date/Time: Sunday, October 16, 2016 12:08 - CONCLUSION: No acute disease. Gavino Ye MD Abdomen/Pelvis CT 10/16/16 0000 Signed Impressions: Service Date/Time: Sunday, October 16, 2016 12:54 - CONCLUSION: 1. Nonspecific, nonobstructive bowel gas pattern with multiple loops of nondilated air-containing small bowel small air-fluid levels. There is no free air or fluid. There is a normal appendix. 2. Moderate hepatic steatosis. 3. Status post cholecystectomy. Gavino Ye MD Physical Exam GEN: Tearful HEENT: Normocephalic, atraumatic CHEST: CTA CARDIAC: RRR ABDOMEN: Soft, obese, moderate epigastric tenderness; no hepatosplenomegaly; bowel sounds are present in all four quadrants. EXTREMITIES: No clubbing, cyanosis, or edema. SKIN: Normal; no rash; no jaundice. MANAGER NC: No focal deficits; alert and oriented times three. (Yasmin Son [facility]) Assessment and Plan Plan ASSESSMENT: - Abdominal pain, N/V, unclear etiology. CT scan abdomen and pelvis (10/16/16)--- -> 1. Nonspecific, nonobstructive bowel gas pattern with multiple loops of nondilated air-containing small bowel small air-fluid levels. There is no free air or fluid. There is a normal appendix. 2. Moderate hepatic steatosis. 3. Status post cholecystectomy. MRCP (10/18/16)- ---> Status post cholecystectomy. Common duct within normal limits for postcholecystectomy state. S/P EGD (10/17/16)-----> 1. Gastritis antrum-biopsy, duodenitis second portion-biopsy, esophagitis distal esophagus-biopsy 2. Retroflexed views revealed a hiatal hernia. Pathology pending. PPI, Carafate. GES ordered, did not tolerate this earlier- too nauseous. Pt having constant nausea/dry heaving, abdominal pain, states no improvement. No improvement with Zofran. Phenergan not available at this time (out of stock), Trial of Compazine. Ideally, we should get the GES prior to starting promotility drugs. Will see if she can get GES with compazine. + BM. - Anemia. HH 9.4/29.4. - DM, Hypokalemia. Per primary. PLAN - Clear liquids - Await GES - Cont. PPI - Cont. Carafate - Trial of Compazine (Phenergan not available- out of stock) - Supportive care - Further recommendations to follow after results of above - Colonoscopy once able to tolerate prep - Pt seen and examined by Dr. Payne and myself and this note is written on her behalf (Yasmin Son) Physician Comments seen, examined agree with above better after Compazine gastric emptying in am, may need colonoscopy for iron deficiency anemia (Jia Payne MD) Yasmin Son October 19, 2016 11:39 Jia Payne MD October 19, 2016 18:19
[2016-10-19 12:22] VITALS: BP 140/65; PULSE 86; RESP 20; TEMP 98.3; O2SAT 95
[2016-10-19] MEDS: PREGABALIN 25 MG CAP PO SCH ×2 (13:00→18:25)
[2016-10-19] MEDS: PROCHLORPERAZINE INJ 10 MG/2 ML VIAL IV PUSH PRN ×2 (13:39→21:28)
[2016-10-19] MEDS: PANTOPRAZOLE SODIUM 40 MG VIAL IV PUSH SCH (16:25)
[2016-10-19 16:54] VITALS: BP 130/63; PULSE 96; RESP 20; TEMP 99.2; O2SAT 99
[2016-10-19 20:00] VITALS: BP 126/78; PULSE 94; RESP 20; TEMP 97.9; O2SAT 98
[2016-10-19] MEDS: MORPHINE SULFATE 4 MG/ML INJ IV PUSH PRN (21:28)
[2016-10-20] VITALS: BP 121/73; PULSE 87; RESP 20; TEMP 98.3; O2SAT 95
[2016-10-20] MEDS: MORPHINE SULFATE 4 MG/ML INJ IV PUSH PRN ×2 (01:21→22:28)
[2016-10-20] MEDS: ONDANSETRON HCL 4 MG/2 ML VIAL IV PUSH PRN ×2 (01:25→09:44)
[2016-10-20] MEDS: LORazepam 0.5 MG TAB PO PRN (02:18)
[2016-10-20 04:00] VITALS: BP 120/62; PULSE 82; RESP 20; TEMP 97.3; O2SAT 95
[2016-10-20] MEDS: INSULIN ASPART SUPPLEMENTAL SCALE SQ SCH ×4 (06:11→21:00)
[2016-10-20] MEDS: SUCRALFATE 1 GM TAB PO SCH ×2 (06:19→15:59)
[2016-10-20 07:32] LABS: HEMATOCRIT 28.1 % (35.0-46.0); MEAN CELL VOLUME 70.3 FL (80.0-100.0); MEAN CORPUSCULAR HEMOGLOBIN 22.9 PG (27.0-34.0); MEAN CORPUSCULAR HGB CONC 32.5 % (32.0-36.0); PLATELET COUNT 151 TH/MM3 (150-450); RED CELL DISTRIBUTION WIDTH 21.5 % (11.6-17.2); WHITE BLOOD COUNT 5.6 TH/MM3 (4.0-11.0)
[2016-10-20 07:51] LABS: BICARBONATE 28.1 MEQ/L (21.0-32.0); POTASSIUM 3.1 MEQ/L (3.5-5.1)
[2016-10-20 07:54] LABS: HEMO FLAGS AUTO DIFF
[2016-10-20 08:38] VITALS: BP 172/84; PULSE 83; RESP 20; TEMP 98.9; O2SAT 96
[2016-10-20] MEDS: 1/2 NS + KCL 20 MEQ INJ 1,000 ML IV SCH (08:45)
[2016-10-20] MEDS: DICYCLOMINE HCL 20 MG TAB PO SCH ×3 (09:00→17:53)
[2016-10-20] MEDS: DULoxetine HCl DR 20 MG CAP PO SCH (09:00)
[2016-10-20] MEDS: PREGABALIN 25 MG CAP PO SCH ×3 (09:00→17:54)
[2016-10-20 10:17] LABS: BASOPHILS 2 % (0-2); EOSINOPHILS 3 % (0-4); NEUTROPHIL # MANUAL DIFF 3.6 TH/MM3 (1.8-7.7); POLYS (SEG NEUTROPHILS) 64 % (16-70); WBC DIFF SAMPLE 100
[2016-10-20 10:18] LABS: OVALOCYTES 1+ (NORMAL); PLATELET ESTIMATE SMEAR NORMAL (NORMAL); PLATELET MORPHOLOGY NORMAL (NORMAL); SCAN/DIFF FINAL DIFF MANUAL
[2016-10-20 12:43] VITALS: BP 141/85; PULSE 81; RESP 16; TEMP 98.4; O2SAT 96
--- NOTE | 2016-10-20 14:02 | HHI.FPPN ---
Subjective Remarks c/o N/V D/W C/O CP C/O ABDOM PAIN D/W RN Objective Vitals Vital Signs Date Time Temp Pulse Resp B/P Pulse Ox O2 Delivery O2 Flow Rate FiO2 10/20/16 12:43 98.4 81 16 141/85 96 10/20/16 08:38 98.9 83 20 172/84 96 10/20/16 04:00 97.3 82 20 120/62 95 10/20/16 00:00 98.3 87 20 121/73 95 10/19/16 20:00 97.9 94 20 126/78 98 10/19/16 16:54 99.2 96 20 130/63 99 I/O 10/19/16 10/19/16 10/19/16 10/20/16 10/20/16 10/20/16 07:00 15:00 23:00 07:00 15:00 23:00 Intake Total 800 ml 1002 ml Output Total 100 ml 800 ml Balance 700 ml 202 ml Intake Oral 240 ml IV Total 800 ml 762 ml Output Urine Total 800 ml Emesis 100 ml # Voids 2 2 2 # Bowel Movements 1 1 0 Result Diagram: 10/20/1642 10/20/16 0642 Objective Remarks GENERAL: SKIN: Warm and dry. HEAD: Atraumatic. Normocephalic. EYES: Pupils equal and round. No scleral icterus. No injection or drainage. ENT: No nasal bleeding or discharge. Mucous membranes pink and moist. NECK: Trachea midline. No JVD. CARDIOVASCULAR: Regular rate and rhythm. RESPIRATORY: No accessory muscle use. Clear to auscultation. Breath sounds equal bilaterally. GASTROINTESTINAL: Abdomen soft, +tender, nondistended. Hepatic and splenic margins not palpable. MUSCULOSKELETAL: Extremities without clubbing, cyanosis, or edema. No obvious deformities. NEUROLOGICAL: Awake and alert. No obvious cranial nerve deficits. Motor grossly within normal limits. Five out of 5 muscle strength in the arms and legs. Normal speech. PSYCHIATRIC: Appropriate mood and affect; insight and judgment normal. Medications and IVs Current Medications Medications (Trade) Dose Ordered Sig/Viviane Route Start Time Stop Time Status Last Admin (Zofran Inj) 4 mg Q8HR PRN IV PUSH 10/16/16 14:00 10/20/16 09:44 (D50w (Vial) Inj) 25 ml UNSCH PRN IV PUSH 10/16/16 14:00 (Glucagon Inj) 1 mg UNSCH PRN OTHER 10/16/16 14:00 (Ventolin Hfa Inh) 1 puff Q4H PRN INH 10/16/16 15:00 (Cymbalta Dr) 20 mg DAILY PO 10/17/16 09:00 (Morphine Inj) 2 mg Q4HR PRN IV PUSH 10/16/16 14:30 10/20/16 01:21 (Protonix Inj) 40 mg Q24H IV PUSH 10/16/16 16:00 10/19/16 16:25 (Bentyl) 20 mg TID PO 10/16/16 18:00 10/19/16 18:24 (Carafate) 1 gm BIDAC PO 10/18/16 16:00 10/20/16 06:19 (Ativan) 0.5 mg Q4H PRN PO 10/18/16 23:45 10/20/16 02:18 Pregabalin 50 mg 50 mg TID PO 10/19/16 13:00 (1/2 NS + KCl 20 Meq Inj) 1,000 ml @ 84 mls/hr [id number] IV 10/19/16 10:30 10/20/16 08:45 (Compazine Inj) 5 mg Q6H PRN IV PUSH 10/19/16 12:00 10/19/16 21:28 A/P Problem List: (1) possible IBD Status: Acute (2) Diabetes Status: Chronic (3) HTN (hypertension) Status: Chronic (4) Muscle spasm Status: Acute (5) Chest tightness or pressure Status: Acute (6) Gastroenteritis Status: Acute (7) UTI (urinary tract infection) Status: Acute (8) Abdominal pain Status: Acute (9) Asthma exacerbation Status: Acute Plan: -VOMITING -Abdominal pain, diarrhea - IV fluid- continue pain control- stool studies- consult GI. EGD 10-17-16 --> duodenitis, esophagitis. Clear liquid diet. mrcp -. gastric emptying study colonoscopy once able to tolerate po -GASTROPARESIS LIKELY -UTI- STOP CIPRO PT REQUEST -HYPOKALEMIA: INCREASE IVF W K -diabetes mellitus; accu-check with SSI- hold metformin -fibromyalgia: INCR LYRICA TO TID -lupus- f/u as outpatient -DVT prophylaxis with SCD's Problem Qualifiers (1) UTI (urinary tract infection): Qualified Code: N30.01 - Acute cystitis with hematuria (2) Abdominal pain: Qualified Code: R10.11 - Right upper quadrant abdominal pain Bubba Reddy MD October 20, 2016 14:02
[2016-10-20 16:09] VITALS: BP 134/80; PULSE 76; RESP 16; TEMP 96.6; O2SAT 97
--- NOTE | 2016-10-20 16:34 | HHI.GIFU ---
Subjective Remarks Pt resting in bed, sipping beverage, in no apparent distress. She says she is feeling better. Still some nausea and epigastric discomfort and bloating but much better than yesterday. (Lin Montes) Objective Vitals I&O Vital Signs Date Time Temp Pulse Resp B/P Pulse Ox O2 Delivery O2 Flow Rate FiO2 10/20/16 16:09 96.6 76 16 134/80 97 10/20/16 12:43 98.4 81 16 141/85 96 10/20/16 08:38 98.9 83 20 172/84 96 10/20/16 04:00 97.3 82 20 120/62 95 10/20/16 00:00 98.3 87 20 121/73 95 10/19/16 20:00 97.9 94 20 126/78 98 10/19/16 16:54 99.2 96 20 130/63 99 I/O 10/19/16 10/19/16 10/19/16 10/20/16 10/20/16 10/20/16 07:00 15:00 23:00 07:00 15:00 23:00 Intake Total 800 ml 1002 ml Output Total 100 ml 800 ml Balance 700 ml 202 ml Intake Oral 240 ml IV Total 800 ml 762 ml Output Urine Total 800 ml Emesis 100 ml # Voids 2 2 2 5 # Bowel Movements 1 1 0 3 Laboratory Laboratory Tests Test 10/20/16 06:42 White Blood Count 5.6 Red Blood Count 4.00 Hemoglobin 9.1 Hematocrit 28.1 Mean Corpuscular Volume 70.3 Mean Corpuscular Hemoglobin 22.9 Mean Corpuscular Hemoglobin 32.5 Concent Red Cell Distribution Width 21.5 Platelet Count 151 Mean Platelet Volume 11.9 Neutrophils (%) (Auto) Lymphocytes (%) (Auto) Monocytes (%) (Auto) Eosinophils (%) (Auto) Basophils (%) (Auto) Neutrophils # (Auto) Lymphocytes # (Auto) Monocytes # (Auto) Eosinophils # (Auto) Basophils # (Auto) CBC Comment AUTO DIFF Differential Total Cells 100 Counted Neutrophils % (Manual) 64 Lymphocytes % 25 Monocytes % 6 Eosinophils % 3 Basophils % 2 Neutrophils # (Manual) 3.6 Differential Comment FINAL DIFF MANUAL Platelet Estimate NORMAL Platelet Morphology Comment NORMAL Ovalocytes 1+ Sodium Level 140 Potassium Level 3.1 Chloride Level 102 Carbon Dioxide Level 28.1 Anion Gap 10 Blood Urea Nitrogen 3 Creatinine 0.65 Estimat Glomerular Filtration 99 Rate Random Glucose 113 Calcium Level 8.3 Date/Time Procedure Status Source Growth 10/18/16 10:40 Cryptosporidium Exam - Final Complete Stool Stool NEGATIVE - NO CRYPTOSPORIDIUM ANTIGEN... 10/18/16 10:40 Giardia Antigen (CINDY) - Final Complete Stool Stool NEGATIVE - NO GIARDIA ANTIGEN DETECTE... 10/18/16 10:40 Stool Occult Blood (CINDY) - Final Complete Stool Stool HEMOCCULT NEGATIVE 10/18/16 10:40 - Final Complete Stool Stool NO ENTERIC PATHOGENS DETECTED BY PCR... 10/16/16 11:45 Urine Culture - Final Complete Urine Catheterized Urine Lactobacillus Species Imaging Last Impressions Cholangiopancreatography MRI 10/18/16 0000 Signed Impressions: Service Date/Time: Tuesday, October 18, 2016 08:32 - CONCLUSION: Status post cholecystectomy. Common duct within normal limits for postcholecystectomy state. Isaiah Doty MD Chest X-Ray 10/16/16 0000 Signed Impressions: Service Date/Time: Sunday, October 16, 2016 12:08 - CONCLUSION: No acute disease. Gavino Ye MD Abdomen/Pelvis CT 10/16/16 0000 Signed Impressions: Service Date/Time: Sunday, October 16, 2016 12:54 - CONCLUSION: 1. Nonspecific, nonobstructive bowel gas pattern with multiple loops of nondilated air-containing small bowel small air-fluid levels. There is no free air or fluid. There is a normal appendix. 2. Moderate hepatic steatosis. 3. Status post cholecystectomy. Gavino Ye MD Physical Exam GEN: much calmer today HEENT: Normocephalic, atraumatic CHEST: CTA CARDIAC: RRR ABDOMEN: Soft, obese, mild epigastric tenderness; no hepatosplenomegaly; bowel sounds are present in all four quadrants. EXTREMITIES: No clubbing, cyanosis, or edema. SKIN: Normal; no rash; no jaundice. CALENDER ROLL OPERATOR: No focal deficits; alert and oriented times three. (Lin Montes) Assessment and Plan Plan ASSESSMENT: - Abdominal pain, N/V, unclear etiology. CT scan abdomen and pelvis (10/16/16)--- -> 1. Nonspecific, nonobstructive bowel gas pattern with multiple loops of nondilated air-containing small bowel small air-fluid levels. There is no free air or fluid. There is a normal appendix. 2. Moderate hepatic steatosis. 3. Status post cholecystectomy. MRCP (10/18/16)- ---> Status post cholecystectomy. Common duct within normal limits for postcholecystectomy state. S/P EGD (10/17/16)-----> 1. Gastritis antrum-biopsy, duodenitis second portion-biopsy, esophagitis distal esophagus-biopsy 2. Retroflexed views revealed a hiatal hernia. Pathology pending. PPI, Carafate. GES ordered, did not tolerate this earlier- too nauseous. Pt having constant nausea/dry heaving, abdominal pain, states some improvement. Phenergan not available at this time (out of stock), Trial of Compazine. Ideally, we should get the GES prior to starting promotility drugs. Will see if she can get GES with compazine. + BM. - Anemia. HH 9.1/28.1. - DM, Hypokalemia. Per primary. PLAN - GES tomorrow - Clear liquids - Await GES - Cont. PPI - Cont. Carafate - Trial of Compazine (Phenergan not available- out of stock) - Supportive care - Further recommendations to follow after results of above - Colonoscopy once able to tolerate prep - Pt seen and examined by Dr. Payne and myself and this note is written on her behalf (Lin Montes) Lin Montes October 20, 2016 16:34 Jia Payne MD October 20, 2016 18:58
[2016-10-20] MEDS: POTASSIUM CHLORIDE INJ 40 MEQ in SODIUM CHLOR 0.45% 1000 ML INJ 1,000 ML IV SCH (19:00)
[2016-10-20 19:49] LABS: BETA HCG QUANT LESS THAN 1 MIU/ML (0-5)
[2016-10-20 20:00] VITALS: BP 142/87; PULSE 80; RESP 20; TEMP 99.3; O2SAT 96
[2016-10-20] MEDS: PANTOPRAZOLE SODIUM 40 MG VIAL IV PUSH SCH (21:34)
[2016-10-20] MEDS: PROCHLORPERAZINE INJ 10 MG/2 ML VIAL IV PUSH PRN (21:34)
[2016-10-21] VITALS: BP 128/74; PULSE 85; RESP 20; TEMP 97.1; O2SAT 94
[2016-10-21 04:00] VITALS: BP 126/76; PULSE 76; RESP 20; TEMP 98.4; O2SAT 96
[2016-10-21] MEDS: MORPHINE SULFATE 4 MG/ML INJ IV PUSH PRN (04:37)
[2016-10-21] MEDS: ONDANSETRON HCL 4 MG/2 ML VIAL IV PUSH PRN (04:41)
[2016-10-21] MEDS: PROCHLORPERAZINE INJ 10 MG/2 ML VIAL IV PUSH PRN (05:47)
[2016-10-21] MEDS: SUCRALFATE 1 GM TAB PO SCH ×2 (05:48→16:48)
[2016-10-21] MEDS: INSULIN ASPART SUPPLEMENTAL SCALE SQ SCH ×4 (06:06→20:46)
[2016-10-21] MEDS: LORazepam 0.5 MG TAB PO PRN (07:19)
[2016-10-21 08:00] VITALS: BP 158/96; PULSE 75; RESP 18; TEMP 98.7; O2SAT 97
[2016-10-21 08:27] LABS: BICARBONATE 28.1 MEQ/L (21.0-32.0); POTASSIUM 3.2 MEQ/L (3.5-5.1)
[2016-10-21] MEDS: DULoxetine HCl DR 20 MG CAP PO SCH (09:00)
[2016-10-21] MEDS: PREGABALIN 25 MG CAP PO SCH (09:00)
[2016-10-21] MEDS: DICYCLOMINE HCL 20 MG TAB PO SCH ×3 (09:00→16:49)
--- NOTE | 2016-10-21 09:43 | HHI.FPPN ---
Subjective Remarks VERY SLEEPY C/O CP AND ABDOM PAIN D/W RN Objective Vitals Vital Signs Date Time Temp Pulse Resp B/P Pulse Ox O2 Delivery O2 Flow Rate FiO2 10/21/16 08:00 98.7 75 18 158/96 97 10/21/16 04:00 98.4 76 20 126/76 96 10/21/16 00:00 97.1 85 20 128/74 94 10/20/16 20:00 99.3 80 20 142/87 96 10/20/16 16:09 96.6 76 16 134/80 97 10/20/16 12:43 98.4 81 16 141/85 96 I/O 10/20/16 10/20/16 10/20/16 10/21/16 10/21/16 10/21/16 07:00 15:00 23:00 07:00 15:00 23:00 Intake Total 1002 ml 240 ml 615 ml Output Total 800 ml Balance 202 ml 240 ml 615 ml Intake Oral 240 ml 240 ml 240 ml IV Total 762 ml 375 ml Output Urine Total 800 ml # Voids 2 5 2 # Bowel Movements 0 3 0 Result Diagram: 10/20/16 0642 10/21/16 0714 Objective Remarks GENERAL: SKIN: Warm and dry. HEAD: Atraumatic. Normocephalic. EYES: Pupils equal and round. No scleral icterus. No injection or drainage. ENT: No nasal bleeding or discharge. Mucous membranes pink and moist. NECK: Trachea midline. No JVD. CARDIOVASCULAR: Regular rate and rhythm. RESPIRATORY: No accessory muscle use. Clear to auscultation. Breath sounds equal bilaterally. GASTROINTESTINAL: Abdomen soft, +tender, nondistended. Hepatic and splenic margins not palpable. MUSCULOSKELETAL: Extremities without clubbing, cyanosis, or edema. No obvious deformities. NEUROLOGICAL: Awake and alert. No obvious cranial nerve deficits. Motor grossly within normal limits. Five out of 5 muscle strength in the arms and legs. Normal speech. PSYCHIATRIC: Appropriate mood and affect; insight and judgment normal. Medications and IVs Current Medications Medications (Trade) Dose Ordered Sig/Viviane Route Start Time Stop Time Status Last Admin (Zofran Inj) 4 mg Q8HR PRN IV PUSH 10/16/16 14:00 10/21/16 04:41 (D50w (Vial) Inj) 25 ml UNSCH PRN IV PUSH 10/16/16 14:00 (Glucagon Inj) 1 mg UNSCH PRN OTHER 10/16/16 14:00 (Ventolin Hfa Inh) 1 puff Q4H PRN INH 10/16/16 15:00 (Cymbalta Dr) 20 mg DAILY PO 10/17/16 09:00 (Morphine Inj) 2 mg Q4HR PRN IV PUSH 10/16/16 14:30 10/21/16 04:37 (Bentyl) 20 mg TID PO 10/16/16 18:00 10/19/16 18:24 (Carafate) 1 gm BIDAC PO 10/18/16 16:00 10/21/16 05:48 (Ativan) 0.5 mg Q4H PRN PO 10/18/16 23:45 10/21/16 07:19 (Lyrica) 50 mg TID PO 10/19/16 13:00 Prochlorperazine Edisylate 5 mg 5 mg Q6H PRN IV PUSH 10/19/16 12:00 10/21/16 05:47 (KCl Inj/1/2 NS 1000 ml Inj) 1,020 ml @ 42 mls/hr Q24H IV 10/20/16 16:00 10/20/16 19:00 (Protonix Inj) 40 mg BID IV PUSH 10/20/16 21:00 10/20/16 21:34 A/P Problem List: (1) Abdominal pain Status: Acute (2) Chest tightness or pressure Status: Acute (3) Gastroenteritis Status: Acute (4) possible IBD Status: Acute (5) Diabetes Status: Chronic (6) HTN (hypertension) Status: Chronic (7) Muscle spasm Status: Acute (8) UTI (urinary tract infection) Status: Acute (9) Asthma exacerbation Status: Acute Plan: -Abdominal pain, diarrhea, Vomiting: IV fluid- continue pain control stool studies- consult GI. EGD 10-17-16 --> duodenitis, esophagitis. Clear liquid diet. mrcp - gastric emptying study hopefully today colonoscopy once able to tolerate po -GASTROPARESIS LIKELY -UTI- off CIPRO PT REQUEST -HYPOKALEMIA: increase IVF W K -diabetes mellitus; accu-check with SSI- hold metformin -fibromyalgia: INCR LYRICA TO TID -lupus- f/u as outpatient -DVT prophylaxis with SCD's Problem Qualifiers (1) Abdominal pain: Qualified Code: R10.11 - Right upper quadrant abdominal pain (2) UTI (urinary tract infection): Qualified Code: N30.01 - Acute cystitis with hematuria Bubba Reddy MD October 21, 2016 09:43
[2016-10-21 12:00] VITALS: BP 162/84; PULSE 89; RESP 18; TEMP 98.2; O2SAT 97
[2016-10-21] MEDS ORDERED: METOCLOPRAMIDE HCL 10 MG/2 ML VIAL ONE (13:46)
--- NOTE | 2016-10-21 15:15 | RADRPT ---
EXAM DATE/TIME: 10/21/2016 11:32 [place] COMPARISON: No previous studies available for comparison. INDICATIONS : Intractable abdominal pain with nausea. DOSE: 1.1 mCi Tc99m Sulfur Colloid Labeled Whole egg PO MEDICATONS: 1.) 5 mg Reglan IV at 90 minutes IMAGIN hrs MEDICAL HISTORY : Gastroesophageal reflux disease. Diabetes mellitus type 2. Hypertension. Stroke. SURGICAL HISTORY : Cholecystectomy. ENCOUNTER: Initial ACUITY: 2 days PAIN SCALE: 6/10 LOCATION: Abdomen. TECHNIQUE: Following the oral ingestion of radiotracer-labeled meal, dynamic sequential images in the [place] projec tion were acquired with simultaneous computer acquisition. The data set was decay-corrected. FINDINGS: LAG PHASE: There is 55 minutes before onset of gastric emptying. EMPTYING: Gastric emptying kinetics are linear. The decay-corrected, back-extrapolated half-time of emptying i s 88 minutes. (Normal for this lab is 45- 90 minutes.) INTERVENTION: Reglan given at 90 minutes CONCLUSION: Delayed lag phase otherwise normal gastric emptying. Wilfredo Martinez MD on October 21, 2016 at 15:11 Board Certified Radiologist. This report was verified electronically.
[2016-10-21 16:00] VITALS: BP 142/81; PULSE 89; RESP 18; TEMP 98.9; O2SAT 98
[2016-10-21] MEDS: ACETAMINOPHEN 325 MG TAB PO PRN (16:48)
--- NOTE | 2016-10-21 16:55 | HHI.GIFU ---
Subjective Remarks Pt resting in bed, says she feels much better and wants to eat. She has some mild nausea but no vomiting today, no pain. (Lin Montes) Objective Vitals I&O Vital Signs Date Time Temp Pulse Resp B/P Pulse Ox O2 Delivery O2 Flow Rate FiO2 10/21/16 12:00 98.2 89 18 162/84 97 10/21/16 08:00 98.7 75 18 158/96 97 10/21/16 04:00 98.4 76 20 126/76 96 10/21/16 00:00 97.1 85 20 128/74 94 10/20/16 20:00 99.3 80 20 142/87 96 I/O 10/20/16 10/20/16 10/20/16 10/21/16 10/21/16 10/21/16 06:59 14:59 22:59 06:59 14:59 22:59 Intake Total 1002 ml 240 ml 615 ml Output Total 800 ml Balance 202 ml 240 ml 615 ml Intake Oral 240 ml 240 ml 240 ml IV Total 762 ml 375 ml Output Urine Total 800 ml # Voids 2 5 2 # Bowel Movements 0 3 0 Laboratory Laboratory Tests Test 10/21/16 07:14 Sodium Level 140 Potassium Level 3.2 Chloride Level 102 Carbon Dioxide Level 28.1 Anion Gap 10 Blood Urea Nitrogen 2 Creatinine 0.65 Estimat Glomerular Filtration 99 Rate Random Glucose 99 Calcium Level 8.8 Magnesium Level 1.8 Date/Time Procedure Status Source Growth 10/18/16 10:40 Cryptosporidium Exam - Final Complete Stool Stool NEGATIVE - NO CRYPTOSPORIDIUM ANTIGEN... 10/18/16 10:40 Giardia Antigen (CINDY) - Final Complete Stool Stool NEGATIVE - NO GIARDIA ANTIGEN DETECTE... 10/18/16 10:40 Stool Occult Blood (CINDY) - Final Complete Stool Stool HEMOCCULT NEGATIVE 10/18/16 10:40 - Final Complete Stool Stool NO ENTERIC PATHOGENS DETECTED BY PCR... Imaging Last Impressions Gastric Emptying Nuclear Medicine 10/21/16 0600 Signed Impressions: Service Date/Time: Friday, October 21, 2016 11:32 - CONCLUSION: Delayed lag phase otherwise normal gastric emptying. Wilfredo Martinez MD Cholangiopancreatography MRI 10/18/16 0000 Signed Impressions: Service Date/Time: Tuesday, October 18, 2016 08:32 - CONCLUSION: Status post cholecystectomy. Common duct within normal limits for postcholecystectomy state. Isaiah Doty MD Chest X-Ray 10/16/16 0000 Signed Impressions: Service Date/Time: Sunday, October 16, 2016 12:08 - CONCLUSION: No acute disease. Gavino Ye MD Abdomen/Pelvis CT 10/16/16 0000 Signed Impressions: Service Date/Time: Sunday, October 16, 2016 12:54 - CONCLUSION: 1. Nonspecific, nonobstructive bowel gas pattern with multiple loops of nondilated air-containing small bowel small air-fluid levels. There is no free air or fluid. There is a normal appendix. 2. Moderate hepatic steatosis. 3. Status post cholecystectomy. Gavino Ye MD Physical Exam GEN: much calmer today HEENT: Normocephalic, atraumatic CHEST: CTA CARDIAC: RRR ABDOMEN: Soft, obese, mild epigastric tenderness; no hepatosplenomegaly; bowel sounds are present in all four quadrants. EXTREMITIES: No clubbing, cyanosis, or edema. SKIN: Normal; no rash; no jaundice. 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 (Lin Montes [facility]) Assessment and Plan Plan ASSESSMENT: - Abdominal pain, N/V, unclear etiology. GES 10-21-16 --> delayed lag phase, otherwise normal GES. CT scan abdomen and pelvis (10/16/16)----> 1. Nonspecific , nonobstructive bowel gas pattern with multiple loops of nondilated air-containing small bowel small air-fluid levels. There is no free air or fluid. There is a normal appendix. 2. Moderate hepatic steatosis. 3. Status post cholecystectomy. MRCP (10/18/16)- ---> Status post cholecystectomy. Common duct within normal limits for postcholecystectomy state. S/P EGD (10/17/16)-----> 1. Gastritis antrum-biopsy, duodenitis second portion-biopsy, esophagitis distal esophagus-biopsy 2. Retroflexed views revealed a hiatal hernia. Pathology pending. PPI, Carafate. GES ordered, did not tolerate this earlier- too nauseous. Pt having constant nausea/dry heaving, abdominal pain, states some improvement. Phenergan not available at this time (out of stock), Trial of Compazine. Ideally, we should get the GES prior to starting promotility drugs. Will see if she can get GES with compazine. + BM. - Anemia. HH 9.1/28.1. - DM, Hypokalemia. Per primary. PLAN - Cont. PPI - Cont. Carafate - Supportive care - low residue diet - consider colonoscopy, could be done as outpatient - Pt seen and examined by Dr. Payne and myself and this note is written on her behalf (Lin Montes) Lin Montes October 21, 2016 16:54 Jia Payne MD October 21, 2016 18:00
[2016-10-21] MEDS: PANTOPRAZOLE SODIUM 40 MG VIAL IV PUSH SCH (20:46)
[2016-10-22] VITALS: BP 144/73; PULSE 70; RESP 20; TEMP 97; O2SAT 97
[2016-10-22] MEDS: POTASSIUM CHLORIDE INJ 40 MEQ in SODIUM CHLOR 0.45% 1000 ML INJ 1,000 ML IV SCH ×2 (01:21→14:32)
[2016-10-22 04:00] VITALS: BP 138/63; PULSE 85; RESP 18; TEMP 97; O2SAT 97
[2016-10-22] MEDS: ACETAMINOPHEN 325 MG TAB PO PRN ×2 (04:39→08:39)
[2016-10-22] MEDS: SUCRALFATE 1 GM TAB PO SCH ×2 (06:10→15:24)
[2016-10-22] MEDS: INSULIN ASPART SUPPLEMENTAL SCALE SQ SCH ×4 (06:10→22:46)
[2016-10-22 08:00] VITALS: BP 150/84; PULSE 76; RESP 18; TEMP 97.1; O2SAT 98
[2016-10-22] MEDS: PANTOPRAZOLE SODIUM 40 MG VIAL IV PUSH SCH ×2 (08:35→22:47)
[2016-10-22] MEDS: PREGABALIN 25 MG CAP PO SCH ×4 (08:39→17:38)
[2016-10-22] MEDS: DICYCLOMINE HCL 20 MG TAB PO SCH ×3 (08:39→17:38)
[2016-10-22] MEDS: DULoxetine HCl DR 20 MG CAP PO SCH ×2 (08:39→08:42)
[2016-10-22] MEDS: LORazepam 0.5 MG TAB PO PRN (08:40)
[2016-10-22 09:20] LABS: BICARBONATE 28.8 MEQ/L (21.0-32.0); POTASSIUM 3.2 MEQ/L (3.5-5.1)
--- NOTE | 2016-10-22 12:07 | HHI.PR ---
Subjective Remarks Follow-up abdominal pain/nausea and vomiting 10/22/16-patient seen and examined, reports some improvement of nausea and vomiting and denies any significant abdominal pain. Patient states, lethargy was secondary to a combination of both Lyrica and Cymbalta prior to admission to the hospital 2 weeks ago. All her questions were answered Objective Vitals Vital Signs Date Time Temp Pulse Resp B/P Pulse Ox O2 Delivery O2 Flow Rate FiO2 10/22/16 08:00 97.1 76 18 150/84 98 10/22/16 04:00 97.0 85 18 138/63 97 10/22/16 00:00 97.0 70 20 144/73 97 10/21/16 16:00 98.9 89 18 142/81 98 I/O 10/21/16 10/21/16 10/21/16 10/22/16 10/22/16 10/22/16 07:00 15:00 23:00 07:00 15:00 23:00 Intake Total 615 ml 747 ml Output Total 400 ml Balance 615 ml 347 ml Intake Oral 240 ml IV Total 375 ml 747 ml Output Urine Total 400 ml # Voids 2 # Bowel Movements 0 Result Diagram: 10/20/16 0642 10/22/16 0749 Imaging Last Impressions Gastric Emptying Nuclear Medicine 10/21/16 0600 Signed Impressions: Service Date/Time: Friday, October 21, 2016 11:32 - CONCLUSION: Delayed lag phase otherwise normal gastric emptying. Wilfredo Martinez MD Cholangiopancreatography MRI 10/18/16 0000 Signed Impressions: Service Date/Time: Tuesday, October 18, 2016 08:32 - CONCLUSION: Status post cholecystectomy. Common duct within normal limits for postcholecystectomy state. Isaiah Doty MD Chest X-Ray 10/16/16 0000 Signed Impressions: Service Date/Time: Sunday, October 16, 2016 12:08 - CONCLUSION: No acute disease. Gavino Ye MD Abdomen/Pelvis CT 10/16/16 0000 Signed Impressions: Service Date/Time: Sunday, October 16, 2016 12:54 - CONCLUSION: 1. Nonspecific, nonobstructive bowel gas pattern with multiple loops of nondilated air-containing small bowel small air-fluid levels. There is no free air or fluid. There is a normal appendix. 2. Moderate hepatic steatosis. 3. Status post cholecystectomy. Gavino Ye MD Objective Remarks GENERAL: NAD SKIN: Warm and dry. HEAD: Normocephalic. EYES: No scleral icterus. No injection or drainage. NECK: Supple, trachea midline. No JVD or lymphadenopathy. CARDIOVASCULAR: Regular rate and rhythm without murmurs, gallops, or rubs. RESPIRATORY: Breath sounds equal bilaterally. No accessory muscle use. GASTROINTESTINAL: Abdomen soft, non-tender, nondistended. MUSCULOSKELETAL: No cyanosis, or edema. BACK: Nontender without obvious deformity. No CVA tenderness. A/P Problem List: (1) Abdominal pain ICD Code: R10.9 Status: Acute (2) UTI (urinary tract infection) ICD Code: N39.0 Status: Acute Assessment and Plan 46-year-old female with -Abdominal pain, diarrhea, Vomiting: IV fluid- continue pain control EGD 10-17-16 --> duodenitis, esophagitis. Clear liquid diet. mrcp -unremarkable gastric emptying study --->Delayed lag phase otherwise normal gastric emptying. colonoscopy once able to tolerate PO -GASTROPARESIS However gastric emptying study --->Delayed lag phase otherwise normal gastric emptying. -UTI- off CIPRO PT REQUEST -HYPOKALEMIA: Give potassium 60 mEq 1 now and monitor -diabetes mellitus; accu-check with SSI- hold metformin -fibromyalgia: Continue with LYRICA 50mg TID as well as Cymbalta 20mg daily; however may adjust medications secondary to side effect of drowsiness -lupus- f/u as outpatient -DVT prophylaxis with SCD's Problem Qualifiers (1) Abdominal pain: Qualified Code: R10.11 - Right upper quadrant abdominal pain (2) UTI (urinary tract infection): Qualified Code: N30.01 - Acute cystitis with hematuria Wilfredo Arreola MD October 22, 2016 12:07
[2016-10-22 12:48] VITALS: BP 134/84; PULSE 89; RESP 18; TEMP 98.9; O2SAT 98
[2016-10-22 17:05] VITALS: BP 152/96; PULSE 100; RESP 18; TEMP 97.6; O2SAT 99
--- NOTE | 2016-10-22 18:10 | HHI.GIFU ---
Subjective Remarks Resting in bed. Feeling much better. Tolerating diet. No n/v. No abdominal pain. Does complain of dry cough and intermittent wheezing today. (Yasmin Son) Objective Vitals I&O Vital Signs Date Time Temp Pulse Resp B/P Pulse Ox O2 Delivery O2 Flow Rate FiO2 10/22/16 17:05 97.6 100 18 152/96 99 10/22/16 12:48 98.9 89 18 134/84 98 10/22/16 08:00 97.1 76 18 150/84 98 10/22/16 04:00 97.0 85 18 138/63 97 10/22/16 00:00 97.0 70 20 144/73 97 I/O 10/21/16 10/21/16 10/21/16 10/22/16 10/22/16 10/22/16 07:00 15:00 23:00 07:00 15:00 23:00 Intake Total 615 ml 747 ml 240 ml Output Total 400 ml Balance 615 ml 347 ml 240 ml Intake Oral 240 ml 240 ml IV Total 375 ml 747 ml Output Urine Total 400 ml # Voids 2 1 # Bowel Movements 0 Laboratory Laboratory Tests Test 10/22/16 07:49 Sodium Level 139 Potassium Level 3.2 Chloride Level 99 Carbon Dioxide Level 28.8 Anion Gap 11 Blood Urea Nitrogen 5 Creatinine 0.88 Estimat Glomerular Filtration 69 Rate Random Glucose 122 Calcium Level 9.0 Date/Time Procedure Status Source Growth 10/18/16 10:40 Cryptosporidium Exam - Final Complete Stool Stool NEGATIVE - NO CRYPTOSPORIDIUM ANTIGEN... 10/18/16 10:40 Giardia Antigen (CINDY) - Final Complete Stool Stool NEGATIVE - NO GIARDIA ANTIGEN DETECTE... 10/18/16 10:40 Stool Occult Blood (CINDY) - Final Complete Stool Stool HEMOCCULT NEGATIVE 10/18/16 10:40 - Final Complete Stool Stool NO ENTERIC PATHOGENS DETECTED BY PCR... Imaging Last Impressions Gastric Emptying Nuclear Medicine 10/21/16 0600 Signed Impressions: Service Date/Time: Friday, October 21, 2016 11:32 - CONCLUSION: Delayed lag phase otherwise normal gastric emptying. Wilfredo Martinez MD Cholangiopancreatography MRI 10/18/16 0000 Signed Impressions: Service Date/Time: Tuesday, October 18, 2016 08:32 - CONCLUSION: Status post cholecystectomy. Common duct within normal limits for postcholecystectomy state. Isaiah Doty MD Chest X-Ray 10/16/16 0000 Signed Impressions: Service Date/Time: Sunday, October 16, 2016 12:08 - CONCLUSION: No acute disease. Gavino Ye MD Abdomen/Pelvis CT 10/16/16 0000 Signed Impressions: Service Date/Time: Sunday, October 16, 2016 12:54 - CONCLUSION: 1. Nonspecific, nonobstructive bowel gas pattern with multiple loops of nondilated air-containing small bowel small air-fluid levels. There is no free air or fluid. There is a normal appendix. 2. Moderate hepatic steatosis. 3. Status post cholecystectomy. Gavino Ye MD Physical Exam GEN: much calmer today HEENT: Normocephalic, atraumatic CHEST: CTA CARDIAC: RRR ABDOMEN: Soft, obese, nontender; no hepatosplenomegaly; bowel sounds are present in all four quadrants. EXTREMITIES: No clubbing, cyanosis, or edema. SKIN: Normal; no rash; no jaundice. 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 (Yasmin Son) Assessment and Plan Plan ASSESSMENT: - Abdominal pain, N/V, unclear etiology. CT scan abdomen and pelvis (10/16/16)---- > 1. Nonspecific, nonobstructive bowel gas pattern with multiple loops of nondilated air-containing small bowel small air-fluid levels. There is no free air or fluid. There is a normal appendix. 2. Moderate hepatic steatosis. 3. Status post cholecystectomy. MRCP (10/18/16)- ---> Status post cholecystectomy. Common duct within normal limits for postcholecystectomy state. S/P EGD (10/17/16)-----> 1. Gastritis antrum-biopsy, duodenitis second portion-biopsy, esophagitis distal esophagus-biopsy 2. Retroflexed views revealed a hiatal hernia. Pathology pending. PPI, Carafate. GES (10/21/16)----> Delayed lag phase otherwise normal gastric emptying. Borderline gastroparesis- Gastric emptying time 88 min- cut off 90. Instructed patient on gastroparesis diet. Verbalizes understanding. Tolerating diet. No n/v. No cottrell. - Anemia. stable - DM, Hypokalemia, Cough, Wheezing. Per primary. PLAN - Soft diet - Small frequent meals - Small bites - Chew food well - Cont. PPI - Colonoscopy as outpatient - FU RAJNI 2 weeks - GI will sign off, please reconsult as needed - Pt seen and examined by Dr. Payne and myself and this note is written on her behalf (Yasmin Son) Yasmin Son October 22, 2016 18:10 Jia Payne MD October 29, 2016 09:36
[2016-10-22 20:00] VITALS: BP 144/88; PULSE 89; RESP 22; TEMP 97.6; O2SAT 96
[2016-10-23] VITALS: BP 138/77; PULSE 90; RESP 20; TEMP 98.7; O2SAT 95
[2016-10-23] MEDS: POTASSIUM CHLORIDE INJ 40 MEQ in SODIUM CHLOR 0.45% 1000 ML INJ 1,000 ML IV SCH (02:20)
[2016-10-23 04:00] VITALS: BP 145/84; PULSE 78; RESP 22; TEMP 97.6; O2SAT 96
[2016-10-23] MEDS: INSULIN ASPART SUPPLEMENTAL SCALE SQ SCH ×2 (06:18→11:00)
[2016-10-23] MEDS: SUCRALFATE 1 GM TAB PO SCH (07:16)
[2016-10-23 08:20] LABS: POTASSIUM 3.7 MEQ/L (3.5-5.1)
[2016-10-23] MEDS: PREGABALIN 25 MG CAP PO SCH (08:37)
[2016-10-23] MEDS: DICYCLOMINE HCL 20 MG TAB PO SCH (08:37)
[2016-10-23] MEDS: PANTOPRAZOLE SODIUM 40 MG VIAL IV PUSH SCH (08:37)
[2016-10-23 08:59] VITALS: BP 149/86; PULSE 79; RESP 18; TEMP 97.4; O2SAT 96
[2016-10-23] MEDS: DULoxetine HCl DR 20 MG CAP PO SCH (09:58)
--- NOTE | 2016-10-23 10:58 | HHI.PR ---
Subjective Remarks Patient seen and examined this morning. Her vitals are stable she's afebrile. Her abd pain has improved. She is eating small meals. Her vomiting has stopped. She has an appt with Dr. Reddy in a few days. She is anxious to go home. She has some pain in her neck from her fibromyalgia. Objective Vital Signs Date Time Temp Pulse Resp B/P Pulse Ox O2 Delivery O2 Flow Rate FiO2 10/23/16 08:59 97.4 79 18 149/86 96 10/23/16 04:00 97.6 78 22 145/84 96 10/23/16 00:00 98.7 90 20 138/77 95 10/22/16 20:00 97.6 89 22 144/88 96 10/22/16 17:05 97.6 100 18 152/96 99 10/22/16 12:48 98.9 89 18 134/84 98 I/O 10/22/16 10/22/16 10/22/16 10/23/16 10/23/16 10/23/16 07:00 15:00 23:00 07:00 15:00 23:00 Intake Total 747 ml 240 ml 638 ml Output Total 400 ml Balance 347 ml 240 ml 638 ml Intake Oral 240 ml IV Total 747 ml 638 ml Output Urine Total 400 ml # Voids 1 1 Result Diagram: 10/20/16 0642 10/23/16 0730 Imaging Last Impressions Gastric Emptying Nuclear Medicine 10/21/16 0600 Signed Impressions: Service Date/Time: Friday, October 21, 2016 11:32 - CONCLUSION: Delayed lag phase otherwise normal gastric emptying. Wilfredo Martinez MD Cholangiopancreatography MRI 10/18/16 0000 Signed Impressions: Service Date/Time: Tuesday, October 18, 2016 08:32 - CONCLUSION: Status post cholecystectomy. Common duct within normal limits for postcholecystectomy state. Isaiah Doty MD Chest X-Ray 10/16/16 0000 Signed Impressions: Service Date/Time: Sunday, October 16, 2016 12:08 - CONCLUSION: No acute disease. Gavino Ye MD Abdomen/Pelvis CT 10/16/16 0000 Signed Impressions: Service Date/Time: Sunday, October 16, 2016 12:54 - CONCLUSION: 1. Nonspecific, nonobstructive bowel gas pattern with multiple loops of nondilated air-containing small bowel small air-fluid levels. There is no free air or fluid. There is a normal appendix. 2. Moderate hepatic steatosis. 3. Status post cholecystectomy. Gavino Ye MD Objective Remarks GENERAL: NAD SKIN: Warm and dry. HEAD: Normocephalic. EYES: No scleral icterus. No injection or drainage. NECK: Supple, trachea midline. No JVD or lymphadenopathy. CARDIOVASCULAR: Regular rate and rhythm without murmurs, gallops, or rubs. RESPIRATORY: Breath sounds equal bilaterally. No accessory muscle use. GASTROINTESTINAL: Abdomen soft, non-tender, nondistended. +bowel sounds MUSCULOSKELETAL: No cyanosis, or edema. BACK: Nontender without obvious deformity. No CVA tenderness. A/P Problem List: (1) Abdominal pain ICD Code: R10.9 (2) UTI (urinary tract infection) ICD Code: N39.0 Assessment and Plan 46-year-old female with Abdominal pain, diarrhea, Vomiting: - Improved. - EGD 10-17-16 --> duodenitis, esophagitis. - mrcp -unremarkable - gastric emptying study --->Delayed lag phase otherwise normal gastric emptying. - GI has signed off, recommend small frequent meals, can do colonoscopy as an outpatient. UTI - UA significant for large leukoesterase and few bacteria. Urine culture showed lactobacillus species. Patient received Cipro 10/16- 10/19 and then it was stopped at her request. HYPOKALEMIA: - Resolved diabetes mellitus; accu-check with SSI- hold metformin fibromyalgia: Continue with LYRICA 50mg TID as well as Cymbalta 20mg daily; however may adjust medications secondary to side effect of drowsiness lupus- f/u as outpatient -DVT prophylaxis with SCD's Discharge Planning October d/c home, f/u with Dr. Reddy and GI. Problem Qualifiers (1) Abdominal pain: Qualified Code: R10.11 - Right upper quadrant abdominal pain (2) UTI (urinary tract infection): Qualified Code: N30.01 - Acute cystitis with hematuria Sallie Street MD R3 October 23, 2016 10:58
[2016-10-23] MEDS ORDERED: PANT20 PO (11:09)
--- NOTE | 2016-10-23 11:10 | HHI.DCPOC ---
Discharge Care Plan Diagnosis: (1) Gastroparesis (2) Abdominal pain (3) Gastroenteritis Goals to Promote Your Health * To prevent worsening of your condition and complications * To maintain your health at the optimal level Directions to Meet Your Goals Take your medications as prescribed Follow your dietary instruction Follow activity as directed Keep your appointments as scheduled Take your immunizations and boosters as scheduled If your symptoms worsen call your PCP, if no PCP go to Urgent Care Center or Emergency Room Smoking is Dangerous to Your Health. Avoid second hand smoke Call the 24-hour hour crisis hotline for domestic abuse at [address]ie [address] MD R3 October 23, 2016 11:10
--- NOTE | 2016-10-23 13:48 | HHI.DS ---
Discharge Summary Admission Date October 18, 2016 at 10:34 Discharge Date: October 23, 2016 Admitting Diagnosis intractable abdominal pain, gastroenteritis, UTI (1) Abdominal pain Diagnosis: Principal (2) Chest tightness or pressure (3) Gastroenteritis Diagnosis: Principal (4) possible IBD (5) Diabetes (6) HTN (hypertension) (7) Muscle spasm (8) UTI (urinary tract infection) (9) Asthma exacerbation Plan: -Abdominal pain, diarrhea, Vomiting: IV fluid- continue pain control stool studies- consult GI. EGD 10-17-16 --> duodenitis, esophagitis. Clear liquid diet. mrcp - gastric emptying study hopefully today colonoscopy once able to tolerate po -GASTROPARESIS LIKELY -UTI- off CIPRO PT REQUEST -HYPOKALEMIA: increase IVF W K -diabetes mellitus; accu-check with SSI- hold metformin -fibromyalgia: INCR LYRICA TO TID -lupus- f/u as outpatient -DVT prophylaxis with SCD's Consultants GI Bratu Brief History Abdominal pain, diarrhea, Vomiting: - Improved. - EGD 10-17-16 --> duodenitis, esophagitis. - mrcp -unremarkable - gastric emptying study --->Delayed lag phase otherwise normal gastric emptying. - GI has signed off, recommend small frequent meals, can do colonoscopy as an outpatient. UTI - UA significant for large leukoesterase and few bacteria. Urine culture showed lactobacillus species. Patient received Cipro 10/16- 10/19 and then it was stopped at her request. HYPOKALEMIA: - Resolved diabetes mellitus; accu-check with SSI- hold metformin fibromyalgia: Continue with LYRICA 50mg TID as well as Cymbalta 20mg daily; however may adjust medications secondary to side effect of drowsiness lupus- f/u as outpatient -DVT prophylaxis with SCD's CBC/BMP: 10/20/16 0642 10/23/16 0730 Significant Findings Laboratory Tests Test 10/21/16 10/22/16 10/23/16 07:14 07:49 07:30 Potassium Level 3.2 MEQ/L 3.2 MEQ/L (3.5-5.1) (3.5-5.1) Blood Urea Nitrogen 2 MG/DL (7-18) 5 MG/DL (7-18) Estimat Glomerular Filtration 69 ML/MIN (>89) Rate Random Glucose 122 MG/DL (74-106) Calcium Level 8.3 MG/DL (8.5-10.1) PE at Discharge GENERAL: SKIN: Warm and dry. HEAD: Atraumatic. Normocephalic. EYES: Pupils equal and round. No scleral icterus. No injection or drainage. ENT: No nasal bleeding or discharge. Mucous membranes pink and moist. NECK: Trachea midline. No JVD. CARDIOVASCULAR: Regular rate and rhythm. RESPIRATORY: No accessory muscle use. Clear to auscultation. Breath sounds equal bilaterally. GASTROINTESTINAL: Abdomen soft, +tender, nondistended. Hepatic and splenic margins not palpable. MUSCULOSKELETAL: Extremities without clubbing, cyanosis, or edema. No obvious deformities. NEUROLOGICAL: Awake and alert. No obvious cranial nerve deficits. Motor grossly within normal limits. Five out of 5 muscle strength in the arms and legs. Normal speech. PSYCHIATRIC: Appropriate mood and affect; insight and judgment normal. Hospital Course Patient presented with Abd pain, N/V. Seen by GI, work up showed some delayed gastric emptying otherwise unremarkable. GI recommended small frequent meals. Recommended colonoscopy as an outpatient. Pts sx significantly improved. D.C in stable condition on higher dose of protonix with diet precautions. Has appt with Dr. Reddy on the . Pt Condition on Discharge: Stable Discharge Disposition: Discharge Home Discharge Instructions DIET: Follow Instructions for: Diabetic Diet Additional Diet Instructions: small frequent meals Activities you can perform: Weight Bearing as Leslie Follow up Referrals: Gastroenterology - 2 Weeks @ [facility] PCP Follow-up - 1 Week Changed Medications: Pantoprazole (Protonix) 20 Mg Tab 40 MG PO DAILY Reflux #30 Ref 0 TAB (Changed from: 20 MG) Continued Medications: Albuterol 8.5 GM Inh (Proair Hfa 8.5 GM Inh) 90 Mcg/Act Aer 1 PUFF INH Q4H 108 mcg/actuation PRN SHORTNESS OF BREATH Ref [address] (Duloxetine DR) 20 Mg Capdr 20 MG PO DAILY Ref 0 CAP Metformin (Metformin) 1,000 Mg Tab 1000 MG PO BIDPC With meals Blood Sugar Management #60 Ref 0 TAB Pregabalin (Lyrica) 25 Mg Cap 50 MG PO DAILY #30 Ref 0 CAP ([bp medx2]) 1 TAB PO DAILY Discontinued Medications: Duloxetine DR (Cymbalta DR) 20 Mg Capdr 20 MG PO DAILY #0 Ref 0 Sallie England MD R3 October 23, 2016 13:48
== END 2016-10-23 13:57 | disposition home or self-care (01) | DRG 392 ==
LOC: NEPE 11:24 → NEDA 13:47 → UNDOADMOB 13:47 → NEDA 17:59 → NEPGCP 17:59 → N05B 10-19 00:06 → N05A 10-22 08:51
PROVIDERS: ADMIT Family Medicine; ATTEND Family Medicine
PROC: 0DB68ZX Excision of Stomach, Via Natural or Artificial Opening Endoscopic, Diagnostic (ICD-10-PCS; 2016-10-17)
PROC: 0DB38ZX Excision of Lower Esophagus, Via Natural or Artificial Opening Endoscopic, Diagnostic (ICD-10-PCS; 2016-10-17)
PROC: 0DB98ZX Excision of Duodenum, Via Natural or Artificial Opening Endoscopic, Diagnostic (ICD-10-PCS; principal; 2016-10-17 13:28)
DX: K52.9 Noninfective gastroenteritis and colitis, unspecified (principal); K76.0 Fatty (change of) liver, not elsewhere classified; K31.84 Gastroparesis; E11.43 Type 2 diabetes mellitus with diabetic autonomic (poly)neuropathy; J45.901 Unspecified asthma with (acute) exacerbation; N39.0 Urinary tract infection, site not specified; K30 Functional dyspepsia; K21.0 Gastro-esophageal reflux disease with esophagitis; K29.70 Gastritis, unspecified, without bleeding; K44.9 Diaphragmatic hernia without obstruction or gangrene; K29.80 Duodenitis without bleeding; E87.6 Hypokalemia; D64.9 Anemia, unspecified; I10 Essential (primary) hypertension; M79.7 Fibromyalgia; G89.29 Other chronic pain; M62.838 Other muscle spasm; Z87.11 Personal history of peptic ulcer disease; Z90.49 Acquired absence of other specified parts of digestive tract; Z79.84 Long term (current) use of oral hypoglycemic drugs; Z86.73 Personal history of transient ischemic attack (TIA), and cerebral infarction without residual deficits
CPT/HCPCS: 71010; 74176; 74181; 76377; 78264; 80048; 80053; 81001; 82272; 82948; 83605; 83690; 83735; 84484; 84702; 84703; 85007; 85025; 85027; 85610; 85730; 87086; 87328; 87329; 87506; 88305; 88312; 93005; 96361; 96374; 96375; 96376; A9541; C9113; J0744; J0780; J2060; J2270; J2405; J2765; J3010; J3480; J7030

== ENCOUNTER 2016-11-08 15:44 | Emergency (ER) | payer OTHER ==
[~2016-11-08] VITALS: Ht 160 cm; Wt 88.0 kg
[~2016-11-08 15:44] MED LIST changes: -ADVA250A INH; -LORA10TA PO; +[UNRECOGNIZED DRUG - REMARK] PO
[2016-11-08 15:47] VITALS: BP 141/91; PULSE 126; RESP 26; TEMP 98.2; O2SAT 100
--- NOTE | 2016-11-08 16:06 | PD ---
Physical Exam Date Seen by Provider: November 08, 2016 Time Seen by Provider: 16:05 Narrative 46 yo female that presents to the ED for pain. Cramping pain in abdomen. Shoulder pain. Taking pain meds. No nausea or vomit. History of fibromyalgia. Pain is severe when it comes 10/10. No chest pain or SOB. No injury. History of this in the past. Pain to her arms as well. Vitals sign stable. Patient awaiting bed placement. Data Data Last Documented VS Vital Signs Date Time Temp Pulse Resp B/P Pulse Ox O2 Delivery O2 Flow Rate FiO2 11/08/16 15:47 98.2 126 26 141/91 100 MDM Medical Record Reviewed: Yes Supervised Visit with FLORECITA: No Braxton Maldonado November 08, 2016 16:06
[2016-11-08] MEDS ORDERED: LISI-515 PO (17:00)
[2016-11-08] MEDS ORDERED: ADVA250A INH (17:00)
[2016-11-08] MEDS ORDERED: BACL10TA PO (17:00)
[2016-11-08] MEDS ORDERED: CHLO25TA2 PO (17:00)
[2016-11-08] MEDS ORDERED: RABE1TAB PO (17:00)
[2016-11-08] MEDS ORDERED: SYMB160A INH (17:00)
[2016-11-08] MEDS ORDERED: MOBI15TA PO (17:00)
--- NOTE | 2016-11-08 17:12 | PD ---
HPI Chief Complaint: Pain: Acute or Chronic Time Seen by Provider: 16:54 Travel History International Travel<30 days: No Contact w/Intl Traveler<30days: No Traveled to known affect area: No History of Present Illness HPI 46yo F with PMH of fibromyalgia, lupus, DM presents to the ED with c/o pain everywhere all the time. Pt's states she has frequent flare ups of her fibromyalgia and has an appointment with her PMD tomorrow. States she has carpal tunnel syndrome and they are arranging surgery. Pt takes cymbalta and lyrica and it is not helping. Pt has pain in her thenar eminence, right scapula as well as her chest. Pt just puts her hand on her chest and states there is pain. Would not elaborate. Denies any fever, sob, n/v, abdominal pain , trauma, focal weakness or numbness. PFSH Past Medical History Hx Anticoagulant Therapy: Yes Asthma: Yes Autoimmune Disease: Yes (LUPUS) Blood Disorders: No Anxiety: Yes Depression: No Heart Rhythm Problems: No Cancer: No Cardiovascular Problems: Yes (HTN) High Cholesterol: No Chest Pain: No Congestive Heart Failure: No COPD: No Cerebrovascular Accident: Yes (TIA) Diabetes: Yes (METFORMIN) Patient Takes Glucophage: Yes (LAST TAKEN 10/31/16 - PT STATES HER BGL HAS BEEN UNDER CONTROL) Diminished Hearing: No Fibromyalgia: Yes Gastrointestinal Disorders: Yes (GASTRITIS) GERD: Yes Genitourinary: No Hypertension: Yes Musculoskeletal: Yes (CARPAL TUNNEL) Neurologic: Yes (FIBROMYALGIA) Psychiatric: Yes Reproductive: No Respiratory: Yes (ASTHMA) Immunizations Current: Yes Sleep Apnea: No Tetanus Vaccination: < 5 Years Influenza Vaccination: Yes ?: Not LMP: OCTOBER 2016 : 2 Para: 2 Miscarriage: 0 : 0 Past Surgical History Section: Yes (X2) Cholecystectomy: Yes Other Surgery: Yes (tendonitis - R. HAND) Social History Alcohol Use: No Tobacco Use: No Substance Use: No Allergies-Medications (Allergen,Severity, Reaction): Coded Allergies: Iodine (Verified Allergy, Severe, Anaphylaxis, 11/08/16) Shellfish (Verified Allergy, Severe, Anaphylaxis, 11/08/16) Theophylline (Verified Allergy, Severe, Anaphylaxis, 11/08/16) Aminophylline (Verified Allergy, Intermediate, MAKES HER HYPER ELEVATES BP , 11/08/16) Benadryl (Verified Allergy, Intermediate, palpitations, 11/08/16) Naprosyn (Verified Allergy, Intermediate, Rash, 11/08/16) Penicillin (Verified Allergy, Intermediate, RASH, 11/08/16) Broccoli (Verified Allergy, Unknown, 11/08/16) Imuran (Verified Allergy, Unknown, 11/08/16) Keflex (Verified Allergy, Unknown, 11/08/16) Motrin (Verified Adverse Reaction, Mild, LUPUS, 11/08/16) Uncoded Allergies: Eggplant (Allergy, Intermediate, 10/09/16) AMRNOHILSON (Adverse Reaction, Severe, 10/09/16) .. Reported Meds & Prescriptions Reported Meds & Active Scripts Active Protonix (Pantoprazole Sodium) 20 Mg Tab 40 Mg PO DAILY Reported Rabeprazole (Rabeprazole Sodium) 20 Mg Tab 20 Mg PO DAILY Lisinopril 20 Mg Tab 20 Mg PO DAILY Chlorthalidone 25 Mg Tab 12.5 Mg PO DAILY Mobic (Meloxicam) 15 Mg Tab 15 Mg PO DAILY Baclofen 10 Mg Tab 10 Mg PO TID PRN Symbicort Inh (Budesonide/Formoterol Fumarate) 160-4.5 Mcg/Act Aero 1 Puff INH Q12HR Advair Diskus Inh (Fluticasone-Salmeterol Inh) 250-50 Mcg/Blist Aer 1 Puff INH BID Rinse mouth after use. Metformin (Metformin HCl) 1,000 Mg Tab 1,000 Mg PO BIDPC With meals Lyrica (Pregabalin) 25 Mg Cap 50 Mg PO TID Proair Hfa 8.5 GM Inh (Albuterol Sulfate) 90 Mcg/Act Aer 1 Puff INH Q4H PRN 108 mcg/actuation Duloxetine DR (Duloxetine HCl) 20 Mg Capdr 20 Mg PO DAILY Review of Systems Except as stated in HPI: all other systems reviewed are Neg Physical Exam Narrative GENERAL: 46yo F in mild distress. SKIN: Focused skin assessment warm/dry. HEAD: Atraumatic. Normocephalic. EYES: Pupils equal and round. No scleral icterus. No injection or drainage. ENT: No nasal bleeding or discharge. Mucous membranes pink and moist. NECK: Trachea midline. No JVD. CARDIOVASCULAR: Regular rate and rhythm. No murmur appreciated. RESPIRATORY: No accessory muscle use. Clear to auscultation. Breath sounds equal bilaterally. GASTROINTESTINAL: Abdomen soft, non-tender, nondistended. MUSCULOSKELETAL: +TTP right medial scapula. +TTP bilateral thenar eminence. No signs of infection. FROM in all digits. NEUROLOGICAL: Awake and alert. No obvious cranial nerve deficits. Motor grossly within normal limits. Normal speech. PSYCHIATRIC: Appropriate mood and affect; insight and judgment normal. Data Data Last Documented VS Vital Signs Date Time Temp Pulse Resp B/P Pulse Ox O2 Delivery O2 Flow Rate FiO2 11/08/16 18:35 98 18 128/79 97 Room Air 11/08/16 15:47 98.2 Orders Electrocardiogram (11/08/16 17:06) Basic Metabolic Panel (Bmp) (11/08/16 17:06) Ckmb (Isoenzyme) Profile (11/08/16 17:06) Complete Blood Count With Diff (11/08/16 17:06) Magnesium (Mg) (11/08/16 17:06) Prothrombin Time / Inr (Pt) (11/08/16 17:06) Act Partial Throm Time (Ptt) (11/08/16 17:06) Troponin I (11/08/16 17:06) Chest, Single Ap (11/08/16 17:06) Ecg Monitoring (11/08/16 17:06) Iv Access Insert/Monitor (11/08/16 17:06) Oximetry (11/08/16 17:06) Morphine Inj (Morphine Inj) (11/08/16 17:15) Ondansetron Inj (Zofran Inj) (11/08/16 17:30) CKMB (11/08/16 17:20) CKMB% (11/08/16 17:20) Labs Laboratory Tests Test 11/08/16 17:20 White Blood Count 7.9 TH/MM3 Red Blood Count 4.61 MIL/MM3 Hemoglobin 10.0 GM/DL Hematocrit 32.3 % Mean Corpuscular Volume 70.0 FL Mean Corpuscular Hemoglobin 21.6 PG Mean Corpuscular Hemoglobin 30.9 % Concent Red Cell Distribution Width 19.5 % Platelet Count 181 TH/MM3 Mean Platelet Volume 11.5 FL Neutrophils (%) (Auto) 67.7 % Lymphocytes (%) (Auto) 20.9 % Monocytes (%) (Auto) 8.6 % Eosinophils (%) (Auto) 2.0 % Basophils (%) (Auto) 0.8 % Neutrophils # (Auto) 5.4 TH/MM3 Lymphocytes # (Auto) 1.7 TH/MM3 Monocytes # (Auto) 0.7 TH/MM3 Eosinophils # (Auto) 0.2 TH/MM3 Basophils # (Auto) 0.1 TH/MM3 CBC Comment DIFF FINAL Differential Comment Prothrombin Time 10.3 SEC Prothromb Time International 0.9 RATIO Ratio Activated Partial 27.6 SEC Thromboplast Time Sodium Level 137 MEQ/L Potassium Level 4.1 MEQ/L Chloride Level 98 MEQ/L Carbon Dioxide Level 27.3 MEQ/L Anion Gap 12 MEQ/L Blood Urea Nitrogen 14 MG/DL Creatinine 0.81 MG/DL Estimat Glomerular Filtration 76 ML/MIN Rate Random Glucose 92 MG/DL Calcium Level 8.9 MG/DL Magnesium Level 2.3 MG/DL Total Creatine Kinase 160 U/L Creatine Kinase MB LESS THAN 0.5 NG/ML Troponin I LESS THAN 0.02 NG/ML MDM Medical Decision Making Medical Screen Exam Complete: Yes Emergency Medical Condition: Yes Interpretation(s) EKG: NSR 92bpm. Normal axis. No ST segment elevation or depression. Differential Diagnosis Fibromyalgia vs. chronic pain Narrative Course 46yo F with generalized pain for a long time. states she had frequent exacerbations of her fibromyalgia. Labs reviewed, no leukocytosis. H/H low but at baseline. Troponin negative. I do not believe chest pain is cardiac. Pt has pain everywhere. Pt has no abdominal pain or tenderness. CXR showed mild right lower lung atelectasis. VS stable. Pt given morphine which helped with pain. Pt to follow up with PMD. Diagnosis Primary Impression: Fibromyalgia Patient Instructions: General Instructions Departure Forms: Tests/Procedures Additional Instructions: Please follow up with your PMD in 3-7 days. Return to the ED if symptoms worsen. Med/Other Pt SpecificInfo: Prescription(s) given Scripts Acetaminophen (Tylenol)325 Mg Rqt222 Mg PO Q6H PRN (PAIN SCALE 1 TO 4) #20 TAB Ref 0 Prov:SantiagoNany DO 11/08/16 Disposition: 01 DISCHARGE HOME Condition: Stable Nany Santiago DO November 08, 2016 17:12
[2016-11-08] MEDS ORDERED: MORPHINE SULFATE 8 MG/ML INJ IV PUSH ONE (17:15)
[2016-11-08 17:30] VITALS: BP 144/103; PULSE 95; RESP 20; O2SAT 98
[2016-11-08] MEDS ORDERED: ONDANSETRON HCL 4 MG/2 ML VIAL IV PUSH ONE (17:30)
[2016-11-08 17:36] LABS: AUTOMATED NEUTROPHIL # 5.4 TH/MM3 (1.8-7.7); BASOPHIL # 0.1 TH/MM3 (0-0.2); BASOPHIL % 0.8 % (0.0-2.0); EOSINOPHIL # 0.2 TH/MM3 (0-0.4); HEMATOCRIT 32.3 % (35.0-46.0); HEMO FLAGS DIFF FINAL; LYMPH % 20.9 % (9.0-44.0); LYMPHOCYTE # 1.7 TH/MM3 (1.0-4.8); MEAN CORPUSCULAR HEMOGLOBIN 21.6 PG (27.0-34.0); MEAN CORPUSCULAR HGB CONC 30.9 % (32.0-36.0); MONO % 8.6 % (0.0-8.0); NEUT % 67.7 % (16.0-70.0); PLATELET COUNT 181 TH/MM3 (150-450); RED BLOOD COUNT 4.61 MIL/MM3 (4.00-5.30); RED CELL DISTRIBUTION WIDTH 19.5 % (11.6-17.2); WHITE BLOOD COUNT 7.9 TH/MM3 (4.0-11.0)
--- NOTE | 2016-11-08 17:53 | RADRPT ---
EXAM DATE/TIME: 11/08/2016 17:25 [facility] COMPARISON: CHEST SINGLE AP, October 16, 2016, 12:08. INDICATIONS : Chest pain. MEDICAL HISTORY : Cardiovascular disease. SURGICAL HISTORY : Cholecystectomy. ENCOUNTER: Initial ACUITY: 1 day PAIN SCORE: 9/10 LOCATION: Bilateral chest FINDINGS: A single view of the chest demonstrates mild right lower lung atelectasis. Otherwise, the lungs are c lear and well-aerated. The heart size is stable. The bony structures are stable. No other significant changes are seen compared to the prior study.. CONCLUSION: Mild right lower lung atelectasis. Alberto Fernandez MD on November 08, 2016 at 17:51 Board Certified Radiologist. This report was verified electronically.
[2016-11-08 17:58] LABS: APTT (PATIENT) 27.6 SEC (24.3-30.1); INTERNATIONAL NORMALIZED RATIO 0.9 RATIO; PROTHROMBIN TIME - PATIENT 10.3 SEC (9.8-11.6)
[2016-11-08 18:04] LABS: ANION GAP 12 MEQ/L (5-15); BICARBONATE 27.3 MEQ/L (21.0-32.0); BLOOD UREA NITROGEN 14 MG/DL (7-18); CHLORIDE 98 MEQ/L (98-107); CREATINE KINASE 160 U/L (26-192); GLOMERULAR FILTRATION RATE 76 ML/MIN (>89); MAGNESIUM 2.3 MG/DL (1.5-2.5); POTASSIUM 4.1 MEQ/L (3.5-5.1); SODIUM (NA) 137 MEQ/L (136-145)
[2016-11-08 18:17] LABS: CKMB LESS THAN 0.5 NG/ML (0.5-3.6)
[2016-11-08 18:35] VITALS: BP 128/79; PULSE 98; RESP 18; O2SAT 97
[2016-11-08] MEDS ORDERED: TYLE325T PO (19:41)
[2016-11-08 19:56] VITALS: BP 129/72
--- NOTE | 2016-11-09 09:26 | EKG ---
Date Performed: 11/08/2016 Time Performed: 17:14:33 PTAGE: 46 years EKG: Sinus rhythm NORMAL ECG PREVIOUS TRACING : 10/16/2016 11.41 DOCTOR: Jonnathan Gonsalez Interpretating Date/Time 11/09/2016 09:25:14
== END 2016-11-08 19:57 | disposition home or self-care (01) ==
LOC: NEPE 15:44
DX: M79.7 Fibromyalgia (principal); R07.9 Chest pain, unspecified; I10 Essential (primary) hypertension; E11.9 Type 2 diabetes mellitus without complications; Z79.01 Long term (current) use of anticoagulants; Z79.84 Long term (current) use of oral hypoglycemic drugs; Z79.899 Other long term (current) drug therapy; Z86.2 Personal history of diseases of the blood and blood-forming organs and certain disorders involving the immune mechanism; Z86.59 Personal history of other mental and behavioral disorders; Z86.79 Personal history of other diseases of the circulatory system; Z87.19 Personal history of other diseases of the digestive system; Z87.39 Personal history of other diseases of the musculoskeletal system and connective tissue; Z87.09 Personal history of other diseases of the respiratory system
CPT/HCPCS: 71010; 80048; 82550; 82552; 83735; 84484; 85025; 85610; 85730; 93005; 96374; 96375; 99285; J2270; J2405

== ENCOUNTER 2016-11-19 16:00 | Emergency (ER) | payer OTHER ==
[~2016-11-19 16:00] MED LIST changes: +ADVA250A INH; +BACL10TA PO; +CHLO25TA2 PO; +LISI-515 PO; +MOBI15TA PO; +RABE1TAB PO; +SYMB160A INH; +TYLE325T PO; -[UNRECOGNIZED DRUG - REMARK] PO
[2016-11-19 16:02] VITALS: BP 133/84; PULSE 137; RESP 48; TEMP 98.3; O2SAT 99
[2016-11-19] MEDS ORDERED: METO10TA PO (16:16)
[2016-11-19] MEDS ORDERED: MSIR15 PO (16:16)
--- NOTE | 2016-11-19 16:21 | PD ---
HPI Chief Complaint: Medical Clearance Time Seen by Provider: 16:20 Travel History International Travel<30 days: No Contact w/Intl Traveler<30days: No Traveled to known affect area: No History of Present Illness HPI 46 YO F with PMH of fibromyalgia, lupus,asthma, HTN, DM presents to the ED for evaluation of chest pain, shortness of breath and chest pain. Patient endorses nonproductive cough 2 weeks. Also complains of stress incontinence and frequent urination. She denies fever, chills, palpitations, abdominal pain, nausea, vomiting, dysuria, back pain. She states that she's been treating with her rescue inhaler but does not currently have a working nebulizer. States that she is prescribed narcotic pain medications but she gets nauseated and dizzy when she takes them so she has been noncompliant. PFSH Past Medical History Hx Anticoagulant Therapy: Yes Asthma: Yes Autoimmune Disease: Yes (LUPUS) Blood Disorders: No Anxiety: Yes Depression: No Heart Rhythm Problems: No Cancer: No Cardiovascular Problems: Yes (HTN) High Cholesterol: No Chest Pain: No Congestive Heart Failure: No COPD: No Cerebrovascular Accident: Yes (TIA) Diabetes: Yes (METFORMIN) Diminished Hearing: No Fibromyalgia: Yes Gastrointestinal Disorders: Yes (GASTRITIS) GERD: Yes Genitourinary: No Hypertension: Yes Musculoskeletal: Yes (CARPAL TUNNEL) Neurologic: Yes (FIBROMYALGIA) Psychiatric: Yes Reproductive: No Respiratory: Yes (ASTHMA) Immunizations Current: Yes Sleep Apnea: No ?: Not : 2 Para: 2 Miscarriage: 0 : 0 Past Surgical History Section: Yes (X2) Cholecystectomy: Yes Other Surgery: Yes (tendonitis - R. HAND) Social History Alcohol Use: No Tobacco Use: No Substance Use: No Allergies-Medications (Allergen,Severity, Reaction): Coded Allergies: Iodine (Verified Allergy, Severe, Anaphylaxis, 11/19/16) Shellfish (Verified Allergy, Severe, Anaphylaxis, 11/19/16) Theophylline (Verified Allergy, Severe, Anaphylaxis, 11/19/16) Aminophylline (Verified Allergy, Intermediate, MAKES HER HYPER ELEVATES BP , 11/19/16) Benadryl (Verified Allergy, Intermediate, palpitations, 11/19/16) Naprosyn (Verified Allergy, Intermediate, Rash, 11/19/16) Penicillin (Verified Allergy, Intermediate, RASH, 11/19/16) Broccoli (Verified Allergy, Unknown, 11/19/16) Imuran (Verified Allergy, Unknown, 11/19/16) Keflex (Verified Allergy, Unknown, 11/19/16) Motrin (Verified Adverse Reaction, Mild, LUPUS, 11/19/16) Uncoded Allergies: Eggplant (Allergy, Intermediate, 10/09/16) AMRNOHILSON (Adverse Reaction, Severe, 10/09/16) .. Reported Meds & Prescriptions Reported Meds & Active Scripts Active Prednisone 20 Mg Tab 20 Mg PO BID 5 Days Azithromycin 250 Mg Tab 250 Mg PO DIRECTED Take 2 tabs (500 mg) on day 1 then 1 tab daily x 4 days. Nebulizer 1 Mis Mis 1 Ea .ROUTE DIRECTED Tylenol (Acetaminophen) 325 Mg Tab 650 Mg PO Q6H PRN Protonix (Pantoprazole Sodium) 20 Mg Tab 40 Mg PO DAILY Reported Morphine IR (Morphine Sulfate) 15 Mg Tab 15 Mg PO BID PRN Metoclopramide (Metoclopramide HCl) 10 Mg Tab 10 Mg PO TIDAC Rabeprazole (Rabeprazole Sodium) 20 Mg Tab 20 Mg PO DAILY Lisinopril 20 Mg Tab 20 Mg PO DAILY Chlorthalidone 25 Mg Tab 12.5 Mg PO DAILY Mobic (Meloxicam) 15 Mg Tab 15 Mg PO DAILY Baclofen 10 Mg Tab 10 Mg PO TID PRN Symbicort Inh (Budesonide/Formoterol Fumarate) 160-4.5 Mcg/Act Aero 1 Puff INH Q12HR Advair Diskus Inh (Fluticasone-Salmeterol Inh) 250-50 Mcg/Blist Aer 1 Puff INH BID Rinse mouth after use. Metformin (Metformin HCl) 1,000 Mg Tab 1,000 Mg PO BIDPC With meals Lyrica (Pregabalin) 25 Mg Cap 50 Mg PO TID Proair Hfa 8.5 GM Inh (Albuterol Sulfate) 90 Mcg/Act Aer 1 Puff INH Q4H PRN 108 mcg/actuation Duloxetine DR (Duloxetine HCl) 20 Mg Capdr 20 Mg PO DAILY Review of Systems Except as stated in HPI: all other systems reviewed are Neg Physical Exam Narrative GENERAL: Well-nourished, well-developed anxious and tearful female in no acute distress. SKIN: Focused skin assessment warm/dry. HEAD: Normocephalic. EYES: No scleral icterus. No injection or drainage. NECK: Supple, trachea midline. No JVD or lymphadenopathy. CARDIOVASCULAR: Regular rate and rhythm without murmurs, gallops, or rubs. 2+ DP and radial pulses bilaterally. CHEST: Tender throughout without deformity or crepitus. No retractions. Hyperventilating. RESPIRATORY: Breath sounds equal bilaterally. Mild to moderate end expiratory wheezing. GASTROINTESTINAL: Abdomen soft, non-tender, nondistended. Active bowel sounds. MUSCULOSKELETAL: No cyanosis, or edema. NEUROLOGICAL: Awake and alert. Cranial nerves II through XII intact. Motor and sensory grossly within normal limits. Five out of 5 muscle strength in all muscle groups. Normal speech. No pronator drift. BACK: Nontender without obvious deformity. No CVA tenderness. Data Data Last Documented VS Vital Signs Date Time Temp Pulse Resp B/P Pulse Ox O2 Delivery O2 Flow Rate FiO2 11/19/16 19:59 98.8 81 16 142/63 96 11/19/16 16:02 Room Air Orders Complete Blood Count With Diff (11/19/16 16:49) Comprehensive Metabolic Panel (11/19/16 16:49) Act Partial Throm Time (Ptt) (11/19/16 16:49) Prothrombin Time / Inr (Pt) (11/19/16 16:49) Ckmb (Isoenzyme) Profile (11/19/16 16:49) Troponin I (11/19/16 16:49) Urinalysis - C+S If Indicated (11/19/16 16:49) Iv Access Insert/Monitor (11/19/16 16:49) Electrocardiogram (11/19/16 16:49) Ecg Monitoring (11/19/16 16:49) Oximetry (11/19/16 16:49) Chest, Single Ap (11/19/16 16:49) Sodium Chloride 0.9% Flush (Ns Flush) (11/19/16 17:00) Methylprednisolone So Succ Inj (Solumedr (11/19/16 17:00) Albuterol-Ipratropium Neb (Duoneb Neb) (11/19/16 17:00) Morphine Inj (Morphine Inj) (11/19/16 17:00) Ondansetron Inj (Zofran Inj) (11/19/16 17:00) CKMB (11/19/16 16:35) CKMB% (11/19/16 16:35) Ct Brain W/O Iv Contrast(Rout) (11/19/16 ) Ed Urine Pregnancytest Poc (11/19/16 20:18) Labs Laboratory Tests Test 11/19/16 11/19/16 16:35 18:45 White Blood Count 10.4 TH/MM3 Red Blood Count 4.87 MIL/MM3 Hemoglobin 10.4 GM/DL Hematocrit 33.9 % Mean Corpuscular Volume 69.5 FL Mean Corpuscular Hemoglobin 21.3 PG Mean Corpuscular Hemoglobin 30.7 % Concent Red Cell Distribution Width 19.3 % Platelet Count 204 TH/MM3 Mean Platelet Volume 12.1 FL Neutrophils (%) (Auto) 66.1 % Lymphocytes (%) (Auto) 23.7 % Monocytes (%) (Auto) 7.2 % Eosinophils (%) (Auto) 2.4 % Basophils (%) (Auto) 0.6 % Neutrophils # (Auto) 6.8 TH/MM3 Lymphocytes # (Auto) 2.5 TH/MM3 Monocytes # (Auto) 0.7 TH/MM3 Eosinophils # (Auto) 0.3 TH/MM3 Basophils # (Auto) 0.1 TH/MM3 CBC Comment DIFF FINAL Differential Comment Prothrombin Time 10.5 SEC Prothromb Time International 1.0 RATIO Ratio Activated Partial 26.4 SEC Thromboplast Time Sodium Level 137 MEQ/L Potassium Level 3.5 MEQ/L Chloride Level 102 MEQ/L Carbon Dioxide Level 21.1 MEQ/L Anion Gap 14 MEQ/L Blood Urea Nitrogen 10 MG/DL Creatinine 0.94 MG/DL Estimat Glomerular Filtration 64 ML/MIN Rate Random Glucose 109 MG/DL Calcium Level 8.7 MG/DL Total Bilirubin 0.3 MG/DL Aspartate Amino Transf 22 U/L (AST/SGOT) Alanine Aminotransferase 39 U/L (ALT/SGPT) Alkaline Phosphatase 88 U/L Total Creatine Kinase 122 U/L Creatine Kinase MB LESS THAN 0.5 NG/ML Troponin I LESS THAN 0.02 NG/ML Total Protein 8.2 GM/DL Albumin 3.8 GM/DL Urine Color LIGHT-YELLOW Urine Turbidity CLEAR Urine pH 5.5 Urine Specific [place] 1.009 Urine Protein NEG mg/dL Urine Glucose (UA) NEG mg/dL Urine Ketones NEG mg/dL Urine Occult Blood NEG Urine Nitrite NEG Urine Bilirubin NEG Urine Urobilinogen LESS THAN 2.0 MG/DL Urine Leukocyte Esterase NEG Urine RBC 1 /hpf Urine WBC LESS THAN 1 /hpf Urine Squamous Epithelial 1 /hpf Cells Urine Bacteria RARE /hpf Urine Mucus FEW /lpf Microscopic Urinalysis Comment CULT NOT INDICATED MDM Medical Decision Making Medical Screen Exam Complete: Yes Emergency Medical Condition: Yes Differential Diagnosis Asthma exacerbation versus costochondritis versus musculoskeletal chest pain versus less likely ACS versus acute on chronic pain versus polypharmacy versus malingering versus other Narrative Course 46 YO F with PMH of fibromyalgia, lupus,asthma, HTN, DM presents to the ED for evaluation of chest pain, shortness of breath and chest pain. Patient endorses nonproductive cough 2 weeks. Also complains of stress incontinence and frequent urination. She denies fever, chills, palpitations, abdominal pain, nausea, vomiting, dysuria, back pain. She states that she's been treating with her rescue inhaler but does not currently have a working nebulizer. States that she is prescribed narcotic pain medications but she gets nauseated and dizzy when she takes them so she has been noncompliant. Patient is afebrile, pulse 137, respiratory rate 48, 99% on room air on presentation. CBC: WBC 10.4, hemoglobin 10.4. CMP: Unremarkable. UA: No culture indicated EKG rate 101, sinus rhythm. TX interval 131, QRS 87, QTC 402. Normal axis. No ST changes. Reviewed by Dr. Mora. Cardiac enzymes negative 1. Chest x-ray: Minimal linear atelectasis versus scarring. No effusion noted per radiology read. On recheck the patient is sleeping. She wakes and complains of pain under the left breast and across the chest. Complains of dizziness which she attributes to morphine administration. The chest pain is completely reproducible, lung sounds have improved. I discussed the results of the workup with the patient. I'll treat her with a course of azithromycin. I wrote her a prescription for a nebulizer and a short course of prednisone. She asked for prescription for Zofran which I explained are contraindicated due to her other medications. At discharge the patient has a new complaint of dizziness. No focal neural deficits noted. CT brain negative for acute process. Patient is instructed to take all medication as prescribed, follow up with her primary care provider. The patient and her indicated understanding of the instructions and are agreeable with the care plan. This patient is stable and discharged home. Diagnosis Primary Impression: Acute asthma exacerbation Qualified Code: J45.901 - Asthma with acute exacerbation, unspecified asthma severity Additional Impressions: Chest wall pain Noncompliance with medication treatment due to underuse of medication Referrals: Primary Care Physician Patient Instructions: Asthma (ED), Chest Wall Pain (ED), General Instructions Additional Instructions: Rest, hydrate. Take all medication as prescribed. Follow-up with your primary care provider Monday as discussed. Return to the ED for worsening of symptoms or any urgent or emergent medical condition. Med/Other Pt SpecificInfo: Prescription(s) given Scripts Prednisone 20 Mg Tab20 Mg PO BID 5 Days Ref 0 Prov:Ruddy Mora MD 11/19/16 Azithromycin 250 Mg [id number] Mg PO DIRECTED #6 TAB Ref 0 Take 2 tabs (500 mg) on day 1 then 1 tab daily x 4 days. Prov:Ruddy Mora MD 11/19/16 Nebulizer 1 Mis Mis #1 EA .ROUTE DIRECTED Ref 0 Prov:Ruddy Mora MD 11/19/16 Disposition: DISCHARGE HOME Condition: Stable Ruba Rodriguez Nov 19, 2016 16:21
[2016-11-19] MEDS: RESP: ALBUTEROL 2.5 MG/IPRATROPIUM 0.5 MG NEB (SCH) INH (16:55)
[2016-11-19] MEDS ORDERED: ONDANSETRON HCL 4 MG/2 ML VIAL IV PUSH ONE (17:00)
[2016-11-19] MEDS ORDERED: methylPREDNISolone SOD SUCC 125 MG/2 ML VIAL IVP ONE (17:00)
[2016-11-19] MEDS ORDERED: SODIUM CHLORIDE 0.9% FLUSH 10 ML FLUSH IVF PRN (17:00)
[2016-11-19] MEDS ORDERED: MORPHINE SULFATE 4 MG/ML INJ IV PUSH ONE (17:00)
[2016-11-19 17:15] LABS: AUTOMATED NEUTROPHIL # 6.8 TH/MM3 (1.8-7.7); BASOPHIL # 0.1 TH/MM3 (0-0.2); BASOPHIL % 0.6 % (0.0-2.0); EOSINOPHIL # 0.3 TH/MM3 (0-0.4); EOSINOPHIL % 2.4 % (0.0-4.0); HEMATOCRIT 33.9 % (35.0-46.0); HEMO FLAGS DIFF FINAL; LYMPH % 23.7 % (9.0-44.0); LYMPHOCYTE # 2.5 TH/MM3 (1.0-4.8); MEAN CELL VOLUME 69.5 FL (80.0-100.0); MEAN CORPUSCULAR HEMOGLOBIN 21.3 PG (27.0-34.0); MEAN CORPUSCULAR HGB CONC 30.7 % (32.0-36.0); MONO % 7.2 % (0.0-8.0); NEUT % 66.1 % (16.0-70.0); PLATELET COUNT 204 TH/MM3 (150-450); RED BLOOD COUNT 4.87 MIL/MM3 (4.00-5.30); RED CELL DISTRIBUTION WIDTH 19.3 % (11.6-17.2); WHITE BLOOD COUNT 10.4 TH/MM3 (4.0-11.0)
--- NOTE | 2016-11-19 17:17 | RADRPT ---
EXAM DATE/TIME: 11/19/2016 17:06 [facility] COMPARISON: No previous studies available for comparison. INDICATIONS : Short of Breath with Chest Pain MEDICAL HISTORY : Cardiovascular disease. SURGICAL HISTORY : Cholecystectomy. ENCOUNTER: Initial ACUITY: 1 day PAIN SCORE: 8/10 LOCATION: Bilateral chest FINDINGS: A single view of the chest demonstrates minimal linear atelectasis or scarring in the lungs. No effus ion. No pneumothorax. Heart size normal. CONCLUSION: 1. Minimal linear atelectasis or scarring. No effusion. Je Zapata MD on November 19, 2016 at 17:11 Board Certified Radiologist. This report was verified electronically.
[2016-11-19 17:21] LABS: APTT (PATIENT) 26.4 SEC (24.3-30.1); PROTHROMBIN TIME - PATIENT 10.5 SEC (9.8-11.6)
[2016-11-19 17:32] LABS: ANION GAP 14 MEQ/L (5-15); AST (GOT) 22 U/L (15-37); BICARBONATE 21.1 MEQ/L (21.0-32.0); BLOOD UREA NITROGEN 10 MG/DL (7-18); CHLORIDE 102 MEQ/L (98-107); GLOMERULAR FILTRATION RATE 64 ML/MIN (>89); POTASSIUM 3.5 MEQ/L (3.5-5.1); SODIUM (NA) 137 MEQ/L (136-145)
[2016-11-19 17:33] LABS: ALT (GPT) 39 U/L (10-53)
[2016-11-19 17:37] LABS: ALKALINE PHOSPHATASE 88 U/L (45-117); CREATINE KINASE 122 U/L (26-192); TOTAL BILIRUBIN ADULT 0.3 MG/DL (0.2-1.0)
[2016-11-19 17:49] LABS: CKMB LESS THAN 0.5 NG/ML (0.5-3.6)
[2016-11-19] MEDS ORDERED: NEBULIZER1 MI1 (17:57)
[2016-11-19] MEDS ORDERED: ZOFR4TAB3 SL (17:57)
[2016-11-19] MEDS ORDERED: AZIT250T3 PO (18:19)
[2016-11-19] MEDS ORDERED: PRED20 PO (18:19)
[2016-11-19 19:06] VITALS: RESP 16
[2016-11-19 19:48] LABS: BACTERIA, URINE RARE /hpf; BLOOD, URINE NEG (NEG); GLUCOSE,URINE NEG (NEG); KETONE, URINE NEG (NEG); MUCUS URINE FEW /lpf (OCC); NITRITE,URINE NEG (NEG); PH, URINE 5.5 (5.0-8.5); SQUAMOUS EPITHELIAL CELL URINE 1 /hpf (0-5); URINE COLOR LIGHT-YELLOW (YELLW/STRAW)
[2016-11-19 19:51] LABS: COMMENT (UR) CULT NOT INDICATED; CULTURE IF INDICATED CULT NOT INDICATED
[2016-11-19 19:59] VITALS: BP 142/63; TEMP 98.8
--- NOTE | 2016-11-19 20:54 | RADRPT ---
EXAM DATE/TIME: 11/19/2016 20:40 [facility] COMPARISON: CHEST SINGLE AP, October 09, 2016, 19:46. INDICATIONS : Syncope. RADIATION DOSE: 39.71 CTDIvol (mGy) MEDICAL HISTORY : Diabetes mellitus type 2. Hypertension. Lupus.TIA. Asthma. SURGICAL HISTORY : None. ENCOUNTER: Initial ACUITY: 1 day PAIN SCALE: 0/10 LOCATION: cranial TECHNIQUE: Multiple contiguous axial images were obtained of the head. Using automated exposure control and adj ustment of the mA and/or kV according to patient size, radiation dose was kept as low as reasonably a chievable to obtain optimal diagnostic quality images. FINDINGS: CEREBRUM: The ventricles are normal for age. No evidence of midline shift, mass lesion, hemorrhage or acute in farction. No extra-axial fluid collections are seen. POSTERIOR FOSSA: The cerebellum and brainstem are intact. The 4th ventricle is midline. The cerebellopontine angle i s unremarkable. EXTRACRANIAL: The visualized portion of the orbits is intact. SKULL: The calvaria is intact. No evidence of skull fracture. CONCLUSION: Normal examination for a patient of this age. No significant change has occurred. Je Zapata MD on November 19, 2016 at 20:49 Board Certified Radiologist. This report was verified electronically.
--- NOTE | 2016-11-20 09:40 | EKG ---
Date Performed: 11/19/2016 Time Performed: 17:15:29 PTAGE: 46 years EKG: SINUS TACHYCARDIA ABNORMAL RHYTHM ECG PREVIOUS TRACING : 11/08/2016 17.14 DOCTOR: Jonnathan Gonsalez Interpretating Date/Time 11/20/2016 09:34:08
== END 2016-11-19 21:07 | disposition home or self-care (01) ==
LOC: NEPE 16:00
DX: I10 Essential (primary) hypertension (principal); J45.901 Unspecified asthma with (acute) exacerbation; R07.89 Other chest pain; Z91.128 Patient's intentional underdosing of medication regimen for other reason
CPT/HCPCS: 70450; 71010; 80053; 81001; 82550; 82552; 84484; 84703; 85025; 85610; 85730; 93005; 94640; 94664; 96374; 96375; 99285; J2270; J2405; J2930

== ENCOUNTER 2016-11-21 20:09 | Observation (INO) | payer OTHER ==
[~2016-11-21 20:09] MED LIST changes: +AZIT250T3 PO; +METO10TA PO; +MSIR15 PO; +NEBULIZER1 MI1; +PRED20 PO
[2016-11-21 20:25] VITALS: BP 126/83; PULSE 119; RESP 26; TEMP 98; O2SAT 99
[2016-11-21] MEDS ORDERED: SODIUM CHLORIDE 0.9% FLUSH 10 ML FLUSH IVF PRN (20:30)
[2016-11-21] MEDS ORDERED: LORazepam 2 MG/ML VIAL IV PUSH ONE (20:30)
--- NOTE | 2016-11-21 20:39 | PD ---
HPI Chief Complaint: Respiratory Symptoms Time Seen by Provider: 20:34 Travel History International Travel<30 days: No Contact w/Intl Traveler<30days: No Traveled to known affect area: No History of Present Illness HPI Patient is a 46-year-old female presenting to emergency department for evaluation of shortness of breath, chest pain, dizziness. Patient reports a nonproductive cough, she states when she coughs her chest hurts. She states that she's been using albuterol every 4 hours throughout the day and taking antibiotics that she was prescribed on November 19. EMS administered 125 mg of Solu -Medrol IV and administered 2 albuterol nebulizer treatments en route to the hospital. Patient's primary care provider is Dr. Reddy. Patient reports a history of asthma, anxiety, lupus, fibromyalgia, gastroparesis, hypertension. PFSH Past Medical History Hx Anticoagulant Therapy: Yes Asthma: Yes Autoimmune Disease: Yes (LUPUS) Blood Disorders: No Anxiety: Yes Depression: No Heart Rhythm Problems: No Cancer: No High Cholesterol: No Chest Pain: No Congestive Heart Failure: No COPD: No Cerebrovascular Accident: Yes (TIA) Diabetes: Yes Diminished Hearing: No Fibromyalgia: Yes Gastrointestinal Disorders: Yes (GASTRITIS) GERD: Yes Genitourinary: No Hypertension: Yes Musculoskeletal: Yes (CARPAL TUNNEL) Reproductive: No Immunizations Current: Yes Sleep Apnea: No ?: Not : 2 Para: 2 Miscarriage: 0 : 0 Past Surgical History Section: Yes (X2) Cholecystectomy: Yes Other Surgery: Yes (tendonitis - R. HAND) Social History Alcohol Use: No Tobacco Use: No Substance Use: No Allergies-Medications (Allergen,Severity, Reaction): Coded Allergies: Iodine (Verified Allergy, Severe, Anaphylaxis, 11/21/16) Shellfish (Verified Allergy, Severe, Anaphylaxis, 11/21/16) Theophylline (Verified Allergy, Severe, Anaphylaxis, 11/21/16) Aminophylline (Verified Allergy, Intermediate, MAKES HER HYPER ELEVATES BP , 11/21/16) Benadryl (Verified Allergy, Intermediate, palpitations, 11/21/16) Naprosyn (Verified Allergy, Intermediate, Rash, 11/21/16) Penicillin (Verified Allergy, Intermediate, RASH, 11/21/16) Broccoli (Verified Allergy, Unknown, 11/21/16) Imuran (Verified Allergy, Unknown, 11/21/16) Keflex (Verified Allergy, Unknown, 11/21/16) Motrin (Verified Adverse Reaction, Mild, LUPUS, 11/21/16) Uncoded Allergies: Eggplant (Allergy, Intermediate, 10/09/16) AMRNOHILSON (Adverse Reaction, Severe, 10/09/16) .. Reported Meds & Prescriptions Reported Meds & Active Scripts Active Prednisone 20 Mg Tab 20 Mg PO BID 5 Days Azithromycin 250 Mg Tab 250 Mg PO DIRECTED Take 2 tabs (500 mg) on day 1 then 1 tab daily x 4 days. Nebulizer 1 Mis Mis 1 Ea .ROUTE DIRECTED Tylenol (Acetaminophen) 325 Mg Tab 650 Mg PO Q6H PRN Protonix (Pantoprazole Sodium) 20 Mg Tab 40 Mg PO DAILY Reported Morphine IR (Morphine Sulfate) 15 Mg Tab 15 Mg PO BID PRN Metoclopramide (Metoclopramide HCl) 10 Mg Tab 10 Mg PO TIDAC Lisinopril 20 Mg Tab 20 Mg PO DAILY Chlorthalidone 25 Mg Tab 12.5 Mg PO DAILY Mobic (Meloxicam) 15 Mg Tab 15 Mg PO DAILY Symbicort Inh (Budesonide/Formoterol Fumarate) 160-4.5 Mcg/Act Aero 1 Puff INH Q12HR Advair Diskus Inh (Fluticasone-Salmeterol Inh) 250-50 Mcg/Blist Aer 1 Puff INH BID Rinse mouth after use. Metformin (Metformin HCl) 1,000 Mg Tab 1,000 Mg PO BIDPC With meals Proair Hfa 8.5 GM Inh (Albuterol Sulfate) 90 Mcg/Act Aer 1 Puff INH Q4H PRN 108 mcg/actuation Duloxetine DR (Duloxetine HCl) 20 Mg Capdr 20 Mg PO DAILY Review of Systems Except as stated in HPI: all other systems reviewed are Neg General / Constitutional: No: Fever, Chills HENT: Positive: Headaches, No: Lightheadedness Cardiovascular: Positive: Chest Pain or Discomfort, Tachycardia Respiratory: Positive: Shortness of Breath, Wheezing, Pleuritic Pain Gastrointestinal: No: Nausea, Vomiting, Abdominal Pain Musculoskeletal: No: Myalgias Neurologic: Positive: Dizziness, No: Weakness, Syncope, Focal Abnormalities Psychiatric: Positive: Anxiety Physical Exam Narrative GENERAL: Overweight, well-developed, well-nourished, alert, anxious appearing female. SKIN: Focused skin assessment warm/dry. HEAD: Atraumatic. Normocephalic. EYES: Pupils equal and round. No scleral icterus. No injection or drainage. ENT: No nasal bleeding or discharge. Mucous membranes pink and moist. NECK: Trachea midline. No JVD. CARDIOVASCULAR: Tachycardic. No murmur appreciated. RESPIRATORY: No accessory muscle use. Scattered expiratory wheezing, tachypneic. GASTROINTESTINAL: Abdomen soft, non-tender, nondistended. Hepatic and splenic margins not palpable. MUSCULOSKELETAL: No obvious deformities. No clubbing. No cyanosis. No edema. Tenderness to palpation along anterior chest wall. NEUROLOGICAL: Awake and alert. No obvious cranial nerve deficits. Motor grossly within normal limits. Normal speech. PSYCHIATRIC: Anxious mood and affect; insight and judgment normal. Data Data Last Documented VS Vital Signs Date Time Temp Pulse Resp B/P Pulse Ox O2 Delivery O2 Flow Rate FiO2 11/21/16 20:35 100 Nasal Cannula 3 11/21/16 20:35 11/21/16 20:25 98.0 119 26 Orders Complete Blood Count With Diff (11/21/16 20:28) Comprehensive Metabolic Panel (11/21/16 20:28) Magnesium (Mg) (11/21/16 20:28) Ckmb (Isoenzyme) Profile (11/21/16 20:28) Troponin I (11/21/16 20:28) Iv Access Insert/Monitor (11/21/16 20:28) Electrocardiogram (11/21/16 20:28) Ecg Monitoring (11/21/16 20:28) Oximetry (11/21/16 20:28) Oxygen Administration (11/21/16 20:28) Chest, Single Ap (11/21/16 20:28) Sodium Chloride 0.9% Flush (Ns Flush) (11/21/16 20:30) Lorazepam Inj (Ativan Inj) (11/21/16 20:30) Sodium Chlorid 0.9% 500 Ml Inj (Ns 500 M (11/21/16 20:45) Ventilation & Perfusion Scan (11/21/16 ) Sodium Chlor 0.9% 1000 Ml Inj (Ns 1000 M (11/21/16 22:15) D-Dimer (11/21/16 22:42) Admit Order (Ed Use Only) (11/21/16 22:43) Labs Laboratory Tests Test 11/21/16 20:46 White Blood Count 10.3 TH/MM3 Red Blood Count 4.49 MIL/MM3 Hemoglobin 9.5 GM/DL Hematocrit 30.9 % Mean Corpuscular Volume 68.9 FL Mean Corpuscular Hemoglobin 21.2 PG Mean Corpuscular Hemoglobin 30.7 % Concent Red Cell Distribution Width 19.1 % Platelet Count 176 TH/MM3 Mean Platelet Volume 12.1 FL Neutrophils (%) (Auto) 81.3 % Lymphocytes (%) (Auto) 13.9 % Monocytes (%) (Auto) 4.6 % Eosinophils (%) (Auto) 0.1 % Basophils (%) (Auto) 0.1 % Neutrophils # (Auto) 8.3 TH/MM3 Lymphocytes # (Auto) 1.4 TH/MM3 Monocytes # (Auto) 0.5 TH/MM3 Eosinophils # (Auto) 0.0 TH/MM3 Basophils # (Auto) 0.0 TH/MM3 CBC Comment DIFF FINAL Differential Comment Sodium Level 137 MEQ/L Potassium Level 3.4 MEQ/L Chloride Level 100 MEQ/L Carbon Dioxide Level 21.7 MEQ/L Anion Gap 15 MEQ/L Blood Urea Nitrogen 11 MG/DL Creatinine 1.16 MG/DL Estimat Glomerular Filtration 51 ML/MIN Rate Random Glucose 213 MG/DL Calcium Level 8.7 MG/DL Magnesium Level 1.7 MG/DL Total Bilirubin 0.2 MG/DL Aspartate Amino Transf 14 U/L (AST/SGOT) Alanine Aminotransferase 37 U/L (ALT/SGPT) Alkaline Phosphatase 81 U/L Total Creatine Kinase 89 U/L Troponin I LESS THAN 0.02 NG/ML Total Protein 7.8 GM/DL Albumin 3.6 GM/DL MDM Medical Decision Making Medical Screen Exam Complete: Yes Emergency Medical Condition: Yes Medical Record Reviewed: Yes Interpretation(s) Last Impressions Chest X-Ray 11/21/162027 Signed Impressions: Service Date/Time: Monday, November 21, 2016 20:33 - CONCLUSION: No evidence of acute cardiopulmonary disease. Shravan Luna MD Laboratory Tests Test 11/21/16 20:46 White Blood Count 10.3 TH/MM3 Red Blood Count 4.49 MIL/MM3 Hemoglobin 9.5 GM/DL Hematocrit 30.9 % Mean Corpuscular Volume 68.9 FL Mean Corpuscular Hemoglobin 21.2 PG Mean Corpuscular Hemoglobin 30.7 % Concent Red Cell Distribution Width 19.1 % Platelet Count 176 TH/MM3 Mean Platelet Volume 12.1 FL Neutrophils (%) (Auto) 81.3 % Lymphocytes (%) (Auto) 13.9 % Monocytes (%) (Auto) 4.6 % Eosinophils (%) (Auto) 0.1 % Basophils (%) (Auto) 0.1 % Neutrophils # (Auto) 8.3 TH/MM3 Lymphocytes # (Auto) 1.4 TH/MM3 Monocytes # (Auto) 0.5 TH/MM3 Eosinophils # (Auto) 0.0 TH/MM3 Basophils # (Auto) 0.0 TH/MM3 CBC Comment DIFF FINAL Differential Comment Sodium Level 137 MEQ/L Potassium Level 3.4 MEQ/L Chloride Level 100 MEQ/L Carbon Dioxide Level 21.7 MEQ/L Anion Gap 15 MEQ/L Blood Urea Nitrogen 11 MG/DL Creatinine 1.16 MG/DL Estimat Glomerular Filtration 51 ML/MIN Rate Random Glucose 213 MG/DL Calcium Level 8.7 MG/DL Magnesium Level 1.7 MG/DL Total Bilirubin 0.2 MG/DL Aspartate Amino Transf 14 U/L (AST/SGOT) Alanine Aminotransferase 37 U/L (ALT/SGPT) Alkaline Phosphatase 81 U/L Total Creatine Kinase 89 U/L Troponin I LESS THAN 0.02 NG/ML Total Protein 7.8 GM/DL Albumin 3.6 GM/DL Vital Signs Date Time Temp Pulse Resp B/P Pulse Ox O2 Delivery O2 Flow Rate FiO2 11/21/16 20:25 98.0 119 26 126/83 99 Differential Diagnosis Pneumonia versus bronchitis versus pulmonary embolism versus anxiety versus medication side effects versus other Narrative Course Patient is a 46-year-old female presented to the emergency department for the second time in 2 days with shortness of breath, pleuritic pain, cough. Patient was tachycardic and tachypneic on arrival. She reported anterior chest wall pain that was reproducible on palpation. Her O2 sats were 98-100% on room air. Patient appears anxious. Labs and imaging ordered and pending. Placed on telemetry monitoring and continuous pulse oximetry. IV access was established by EMS prior to arrival and she was given Solu-Medrol and 2 albuterol nebulizer treatments prior to arrival as well. Patient had been utilizing albuterol nebulizers every 4 hours throughout the day and then had been given 2 more en route to the hospital. This is likely contributing to her tachycardia and feelings of anxiety. Patient was given 0.5 mg of IV Ativan, despite this she continues to be tachycardic. Repeat chest x-ray today shows no acute disease CBC is stable Chemistry with a slight elevation in creatinine at 1.16, potassium 3.4, troponin less than 0.02. Patient has an allergy to shellfish, for this reason a CT pulmonary angiogram could not be performed. A VQ scan was ordered and pending. Due to repeat presentation in the emergency department, patient will be placed under observation. Discussed with Dr. Reddy her primary provider who accepted admission. He requested d-dimer be obtained. Orders placed. Diagnosis Primary Impression: Tachycardia Additional Impressions: Shortness of breath Hypokalemia Suspected pulmonary embolism Admitting Information Admitting Physician Requests: Observation Condition: Stable Maite Gates Nov 21, 2016 20:39
[2016-11-21] MEDS ORDERED: SODIUM CHLORID 0.9% 500 ML INJ 500 ML IV ONE (20:45)
--- NOTE | 2016-11-21 20:49 | RADRPT ---
EXAM DATE/TIME: 11/21/2016 20:33 [facility] COMPARISON: CHEST SINGLE AP, November 19, 2016, 17:06. INDICATIONS : Shortness of breath. MEDICAL HISTORY : Cardiovascular disease. SURGICAL HISTORY : Cholecystectomy. ENCOUNTER: Initial ACUITY: 1 day PAIN SCORE: 5/10 LOCATION: Bilateral chest FINDINGS: A single view of the chest demonstrates the lungs to be symmetrically aerated without evidence of mas s, infiltrate or effusion. The cardiomediastinal contours are unremarkable. Osseous structures are intact. CONCLUSION: No evidence of acute cardiopulmonary disease. Shravan Luna MD on November 21, 2016 at 20:46 Board Certified Radiologist. This report was verified electronically.
[2016-11-21 21:29] LABS: AUTOMATED NEUTROPHIL # 8.3 TH/MM3 (1.8-7.7); BASOPHIL % 0.1 % (0.0-2.0); EOSINOPHIL % 0.1 % (0.0-4.0); HEMATOCRIT 30.9 % (35.0-46.0); HEMO FLAGS DIFF FINAL; LYMPH % 13.9 % (9.0-44.0); LYMPHOCYTE # 1.4 TH/MM3 (1.0-4.8); MEAN CELL VOLUME 68.9 FL (80.0-100.0); MEAN CORPUSCULAR HEMOGLOBIN 21.2 PG (27.0-34.0); MEAN CORPUSCULAR HGB CONC 30.7 % (32.0-36.0); MONO % 4.6 % (0.0-8.0); NEUT % 81.3 % (16.0-70.0); PLATELET COUNT 176 TH/MM3 (150-450); RED BLOOD COUNT 4.49 MIL/MM3 (4.00-5.30); RED CELL DISTRIBUTION WIDTH 19.1 % (11.6-17.2); WHITE BLOOD COUNT 10.3 TH/MM3 (4.0-11.0)
[2016-11-21 21:51] LABS: ALKALINE PHOSPHATASE 81 U/L (45-117); ALT (GPT) 37 U/L (10-53); ANION GAP 15 MEQ/L (5-15); AST (GOT) 14 U/L (15-37); BICARBONATE 21.7 MEQ/L (21.0-32.0); BLOOD UREA NITROGEN 11 MG/DL (7-18); CHLORIDE 100 MEQ/L (98-107); GLOMERULAR FILTRATION RATE 51 ML/MIN (>89); MAGNESIUM 1.7 MG/DL (1.5-2.5); POTASSIUM 3.4 MEQ/L (3.5-5.1); SODIUM (NA) 137 MEQ/L (136-145); TOTAL BILIRUBIN ADULT 0.2 MG/DL (0.2-1.0)
[2016-11-21 21:52] LABS: CREATINE KINASE 89 U/L (26-192)
--- NOTE | 2016-11-21 21:52 | EKG ---
Date Performed: 11/21/2016 Time Performed: 20:31:37 PTAGE: 46 years EKG: SINUS TACHYCARDIA WITH SHORT CA INTERVAL POSSIBLE LEFT ATRIAL ENLARGEMENT ABNORMAL RHYTHM E CG NO SIGNIFICANT CHANGE FROM PRIOR ELECTROCARDIOGRAM. PREVIOUS TRACING : 11/19/2016 17.15 DOCTOR: Jeffery Ramires Interpretating Date/Time 11/21/2016 21:51:28
[2016-11-21] MEDS ORDERED: SODIUM CHLOR 0.9% 1000 ML INJ 1,000 ML IV ONE (22:15)
[2016-11-21] MEDS ORDERED: MAGNESIUM HYDROXIDE SUSP 30 ML CUP PO PRN (23:00)
[2016-11-21] MEDS ORDERED: ZOLPIDEM TARTRATE 5 MG TAB PO PRN (23:00)
[2016-11-21] MEDS ORDERED: DEXTROSE 50% IN WATER 50 ML VIAL(D50) IV PRN (23:00)
[2016-11-21] MEDS ORDERED: METOCLOPRAMIDE HCL 10 MG/2 ML VIAL IV PUSH PRN (23:00)
[2016-11-21] MEDS ORDERED: ACETAMINOPHEN 325 MG TAB PO PRN (23:00)
[2016-11-21] MEDS ORDERED: SODIUM CHLORIDE 0.9% FLUSH 10 ML FLUSH IV FLUSH PRN (23:00)
[2016-11-21] MEDS ORDERED: LORazepam 0.5 MG TAB PO PRN (23:00)
[2016-11-21] MEDS ORDERED: BISACODYL 10 MG SUPP RECTAL PRN (23:00)
[2016-11-21] MEDS ORDERED: LACTULOSE SYRUP 20 GM/30 ML CUP PO PRN (23:00)
[2016-11-21] MEDS ORDERED: NALOXONE HCL 0.4 MG/ML AMP IV PRN (23:00)
[2016-11-21] MEDS ORDERED: GLUCAGON 1 MG/ML VIAL OTHER PRN (23:00)
[2016-11-21] MEDS ORDERED: ENALAPRILAT 2.5 MG/2 ML VIAL IV PUSH PRN (23:00)
[2016-11-21] MEDS ORDERED: SENNOSIDES 8.6 MG TAB PO PRN (23:00)
[2016-11-21] MEDS ORDERED: PROCHLORPERAZINE 25 MG SUPP RECTAL PRN (23:00)
[2016-11-21] MEDS ORDERED: MORPHINE SULFATE 8 MG/ML INJ IV PUSH PRN (23:00)
[2016-11-21] MEDS ORDERED: MORPHINE SULFATE 15 MG TAB PO PRN (23:00)
[2016-11-21] MEDS ORDERED: cloNIDine HCL 0.1 MG TAB PO PRN (23:00)
[2016-11-21] MEDS ORDERED: POTASSIUM CHLORIDE 20 MEQ CONTROLLED RELEASE TAB PO ONE (23:00)
[2016-11-21 23:33] VITALS: BP 116/74; PULSE 106; RESP 18; O2SAT 100
--- NOTE | 2016-11-21 23:46 | RADRPT ---
EXAM DATE/TIME: 11/21/2016 23:02 [facility] COMPARISON: CHEST SINGLE AP, November 21, 2016, 20:33. INDICATIONS : Dyspnea, chest pain and dizziness. DOSE: 8.7 mCi Tc99m MAA IV 1.3 mCi Tc99m DTPA aerosol MEDICAL HISTORY : Gastroesophageal reflux disease. Diabetes mellitus type 2. Hypertension. Stroke. Asthma. SURGICAL HISTORY : Cholecystectomy. ENCOUNTER: Initial ACUITY: 1 day PAIN SCALE: 3/10 LOCATION: chest TECHNIQUE: Following five minutes of tidal breathing of DTPA aerosol, planar images of the lungs were performed in eight projections. The patient was then injected with MAA, and eight-view perfusion scan was perf ormed. FINDINGS: There is a homogeneous pattern of aerosol delivery to the periphery of both lungs. No focal ventilat ory defects are seen. The perfusion lung scan demonstrates a homogenous pattern of uptake in both lungs. No segmental or s ubsegmental defects are seen. CONCLUSION: Normal examination. Penelope Feng MD on November 21, 2016 at 23:44 Board Certified Radiologist. This report was verified electronically.
[2016-11-21 23:58] VITALS: BP 136/78; PULSE 87; RESP 18; TEMP 98.1; O2SAT 97
[2016-11-22] VITALS (11 sets, daily range): BP systolic 110–130; BP diastolic 59–71; PULSE 97–116; RESP 18–20; TEMP 96.8–98; O2SAT 93–97
[2016-11-22] MEDS: PANTOPRAZOLE SODIUM 40 MG VIAL IV PUSH SCH ×2 (00:03→21:41)
[2016-11-22] MEDS: methylPREDNISolone SOD SUCC 40 MG/1 ML VIAL IV PUSH SCH ×5 (00:04→22:36)
[2016-11-22] MEDS: HEPARIN SODIUM - SQ 10,000 UNITS/ML VIAL SQ SCH ×3 (00:04→21:42)
[2016-11-22] MEDS: ONDANSETRON HCL 4 MG/2 ML VIAL IVP PRN ×2 (00:05→06:23)
[2016-11-22] MEDS: RESP: ALBUTEROL 2.5 MG/IPRATROPIUM 0.5 MG NEB (PRN) NEB ×2 (01:33→16:46)
[2016-11-22] MEDS ORDERED: LORazepam 0.5 MG TAB PO PRN (03:45)
[2016-11-22] MEDS: HALOPERIDOL 5 MG TAB PO PRN ×2 (03:55→18:50)
[2016-11-22] MEDS: INSULIN ASPART SUPPLEMENTAL SCALE SQ SCH ×4 (06:23→22:36)
[2016-11-22 08:03] LABS: AUTOMATED NEUTROPHIL # 8.4 TH/MM3 (1.8-7.7); BASOPHIL % 0.1 % (0.0-2.0); HEMATOCRIT 30.8 % (35.0-46.0); LYMPH % 8.1 % (9.0-44.0); LYMPHOCYTE # 0.7 TH/MM3 (1.0-4.8); MEAN CELL VOLUME 69.1 FL (80.0-100.0); MEAN CORPUSCULAR HEMOGLOBIN 21.1 PG (27.0-34.0); MEAN CORPUSCULAR HGB CONC 30.5 % (32.0-36.0); MONO % 1.1 % (0.0-8.0); NEUT % 90.7 % (16.0-70.0); PLATELET COUNT 165 TH/MM3 (150-450); RED BLOOD COUNT 4.45 MIL/MM3 (4.00-5.30); RED CELL DISTRIBUTION WIDTH 19.1 % (11.6-17.2); WHITE BLOOD COUNT 9.3 TH/MM3 (4.0-11.0)
[2016-11-22 08:22] LABS: BICARBONATE 25.4 MEQ/L (21.0-32.0); POTASSIUM 3.9 MEQ/L (3.5-5.1)
[2016-11-22 08:41] LABS: HEMO FLAGS AUTO DIFF
[2016-11-22] MEDS: METOCLOPRAMIDE HCL 10 MG TAB PO SCH ×3 (08:46→17:13)
[2016-11-22] MEDS: SODIUM CHLORIDE 0.9% FLUSH 10 ML FLUSH IV FLUSH SCH ×2 (08:46→21:42)
[2016-11-22] MEDS: LISINOPRIL 20 MG TAB PO SCH (08:46)
[2016-11-22] MEDS: DULoxetine HCl DR 20 MG CAP PO SCH (08:46)
[2016-11-22] MEDS: DOCUSATE SODIUM 50 MG/SENNA 8.6 MG TAB PO SCH ×2 (08:46→21:41)
[2016-11-22] MEDS ORDERED: CHLORTHALIDONE 12.5 MG PO SCH (09:00)
[2016-11-22 09:08] LABS: OVALOCYTES 1+ (NORMAL)
[2016-11-22 09:09] LABS: PLATELET ESTIMATE SMEAR NORMAL (NORMAL); PLATELET MORPHOLOGY ENLARGED (NORMAL); SCAN/DIFF AUTO DIFF CONFIRMED
--- NOTE | 2016-11-22 10:50 | MH ---
cc: DOLLY MUNOZ MD DATE OF ADMISSION 11/21/2016 CHIEF COMPLAINT Shortness of breath, wheezing and chest pain. HISTORY OF PRESENT ILLNESS Prachi Chaudhry is a 46-year-old female with an extensive past medical history. She presented with chest pain and dizziness. She states that she has had increased wheezing for the past five days. She had increased coughing and resultant anterior chest pain and felt that she could not walk due to dizziness. She was using the albuterol at home and I had given her antibiotics in my office. She subsequently called EMS and they gave her IV Solu-Medrol and the patient presented to the emergency room with a diagnosis of suspected pulmonary embolism. Her D-dimer was elevated, however, her VQ scan is negative. She was very anxious in the emergency room and did not respond and was given IV Ativan and she continued to be tachycardiac. I was thus called by the emergency room doctor for observation/admission. LABORATORY DATA Hemoglobin is 9.4, WBC is normal platelets 165. Glucose 144 and 213, otherwise normal CMP, troponin normal. D-dimer is 0.57. IMAGING VQ scan normal examination. Chest x-ray shows no acute disease. ALLERGIES AMINOPHYLLINE, BENADRYL, BROCCOLI, EGG, IMURAN, IODINE, KEFLEX, MOTRIN, NAPROSYN, PENICILLIN, SHELLFISH AND THEOPHYLLINE. PAST MEDICAL HISTORY 1. Lupus 2. Asthma 3. Anxiety 4. TIA 5. Gastritis 6. Fibromyalgia 7. Carpal tunnel syndrome PAST SURGICAL HISTORY 1. x2 2. Cholecystectomy 3. Right hand tendon surgery SOCIAL HISTORY No alcohol, tobacco or illicit drug usage. She lives at home with her . She takes care of her mother. 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 MEDICATIONS Home medications are: 1. Prednisone 20 b.i.d. for 5 days 2. Z-Bartolo 3. Protonix 40 mg daily 4. MSIR 15 mg b.i.d. p.r.n. 5. Reglan 10 mg a.c. t.i.d. 6. Lisinopril 20 7. Chlorthalidone 25 8. Mobic 15 9. Symbicort 10. Advair 11. Metformin 12. ProAir 13. Duloxetine PHYSICAL EXAM VITALS: Temperature 98.0, pulse has been 119-98, respirations are initially 26 now 18, blood pressure 124/71, pulse ox 93% on room air. GENERAL: She is an alert obese Arabic female. She becomes tearful when questioning her. HEENT: Oropharynx is clear. Carotids are clear. No JVD. CHEST: She has expiratory wheezes in all reeder. She has poor air movement. There is patchy rhonchi. No crackles or consolidation. CARDIOVASCULAR: Regular rate and rhythm. No murmurs, rubs, clicks or gallops. ABDOMEN: Soft, obese, nontender. Normoactive bowel sounds. EXTREMITIES: Trace edema in the feet. She has good dorsalis pedis and posterior tibial pulses. NEUROLOGIC: A and O x3. She is very nervous. Cranial nerves are grossly intact. She is tearful. ASSESSMENT 1. Asthma exacerbation 2. Sinus tachycardia due to asthma 3. Panic disorder 4. Lupus 5. Anemia of chronic disease 6. Diabetes 7. Gastritis 8. Gastroparesis 9. Hypertension 10. TIA history 11. Carpal tunnel syndrome PLAN 1. Solu-Medrol 80 IV q6h 2. Reglan 10 a.c. 3. I will discontinue her morphine as she states it is causing vomiting and start her on oxycodone IR 15 mg q4 p.r.n. pain. 4. Haldol 5 mg p.o. q4 p.r.n. for anxiety 5. Heparin 5000 units subcu q12h 6. Ativan q4 p.r.n. 7. Sliding scale insulin 8. Telemetry 9. SCD's 10. MAHENDRA's 11. O2 12. DuoNeb p.r.n. 13. Observation/admission. Dolly Munoz MD RP/OMKAR /10:28 AM /10:41 AM
[2016-11-23 00:02] VITALS: PULSE 85
[2016-11-23] MEDS: ONDANSETRON HCL 4 MG/2 ML VIAL IVP PRN (00:07)
[2016-11-23] MEDS: RESP: ALBUTEROL 2.5 MG/IPRATROPIUM 0.5 MG NEB (PRN) NEB ×2 (00:16→08:14)
[2016-11-23 00:18] VITALS: O2SAT 96
[2016-11-23 03:36] VITALS: BP 114/59; PULSE 85; RESP 18; TEMP 96.9; O2SAT 94
[2016-11-23] MEDS: methylPREDNISolone SOD SUCC 40 MG/1 ML VIAL IV PUSH SCH (05:10)
[2016-11-23] MEDS: INSULIN ASPART SUPPLEMENTAL SCALE SQ SCH (05:24)
[2016-11-23] MEDS ORDERED: HALO5TAB PO (07:31)
[2016-11-23] MEDS ORDERED: FLUTI220I INH (07:31)
[2016-11-23] MEDS ORDERED: MEDR4PAK PO (07:31)
--- NOTE | 2016-11-23 07:33 | HHI.DS ---
Discharge Summary Admission Date Nov 21, 2016 at 22:45 Discharge Date: Nov 23, 2016 Admitting Diagnosis SOB, TACHYCARDIA (1) Vomiting (2) Body aches (3) Muscle spasm (4) Diabetes (5) HTN (hypertension) (6) Chest tightness or pressure (7) Asthma exacerbation (8) Shortness of breath (9) Tachycardia (10) Suspected pulmonary embolism CBC/BMP: 11/22/16 0600 11/22/16 0600 Significant Findings Laboratory Tests Test 11/21/16 11/21/16 11/22/16 20:46 22:50 06:00 Hemoglobin 9.5 GM/DL 9.4 GM/DL (11.6-15.3) (11.6-15.3) Hematocrit 30.9 % 30.8 % (35.0-46.0) (35.0-46.0) Mean Corpuscular Volume 68.9 FL 69.1 FL (80.0-100.0) (80.0-100.0) Mean Corpuscular Hemoglobin 21.2 PG 21.1 PG (27.0-34.0) (27.0-34.0) Mean Corpuscular Hemoglobin 30.7 % 30.5 % Concent (32.0-36.0) (32.0-36.0) Red Cell Distribution Width 19.1 % 19.1 % (11.6-17.2) (11.6-17.2) Mean Platelet Volume 12.1 FL (7.0-11.0) Neutrophils (%) (Auto) 81.3 % 90.7 % (16.0-70.0) (16.0-70.0) Neutrophils # (Auto) 8.3 TH/MM3 8.4 TH/MM3 (1.8-7.7) (1.8-7.7) Potassium Level 3.4 MEQ/L (3.5-5.1) Creatinine 1.16 MG/DL (0.50-1.00) Estimat Glomerular Filtration 51 ML/MIN (>89) 74 ML/MIN (>89) Rate Random Glucose 213 MG/DL 144 MG/DL (74-106) (74-106) Aspartate Amino Transf 14 U/L (15-37) (AST/SGOT) Troponin I LESS THAN 0.02 NG/ML (0.02-0.05) D-Dimer Quantitative (PE/DVT) 0.57 MG/L FEU (0.00-0.50) Lymphocytes (%) (Auto) 8.1 % (9.0-44.0) Lymphocytes # (Auto) 0.7 TH/MM3 (1.0-4.8) Platelet Morphology Comment ENLARGED (NORMAL) Ovalocytes 1+ (NORMAL) Chloride Level 97 MEQ/L (98-107) PE at Discharge GENERAL: SKIN: Warm and dry. HEAD: Atraumatic. Normocephalic. EYES: Pupils equal and round. No scleral icterus. No injection or drainage. ENT: No nasal bleeding or discharge. Mucous membranes pink and moist. NECK: Trachea midline. No JVD. CARDIOVASCULAR: Regular rate and rhythm. RESPIRATORY: No accessory muscle use. Clear to auscultation. Breath sounds equal bilaterally. GASTROINTESTINAL: Abdomen soft, non-tender, nondistended. Hepatic and splenic margins not palpable. MUSCULOSKELETAL: Extremities without clubbing, cyanosis, or edema. No obvious deformities. NEUROLOGICAL: Awake and alert. No obvious cranial nerve deficits. Motor grossly within normal limits. Five out of 5 muscle strength in the arms and legs. Normal speech. PSYCHIATRIC: Appropriate mood and affect; insight and judgment normal. Hospital Course 46 y slovak female, admit with - 1. Asthma exacerbation 2. Sinus tachycardia due to asthma 3. Panic disorder 4. Lupus 5. Anemia of chronic disease 6. Diabetes 7. Gastritis 8. Gastroparesis 9. Hypertension 10. TIA history 11. Carpal tunnel syndrome Hospital course and plan was to - 1. Solu-Medrol 80 IV q6h 2. Reglan 10 a.c. 3. I will discontinue her morphine as she states it is causing vomiting and start her on oxycodone IR 15 mg q4 p.r.n. pain. 4. Haldol 5 mg p.o. q4 p.r.n. for anxiety 5. Heparin 5000 units subcu q12h 6. Ativan q4 p.r.n. 7. Sliding scale insulin 8. Telemetry 9. SCD's 10. MAHENDRA's 11. O2 12. DuoNeb p.r.n. 13. Observation/admission. lilia candelaria haldol, medrol. sx sec to anxiety Discharge Disposition: Discharge Home Discharge Instructions DIET: Follow Instructions for: Heart Healthy Diet Activities you can perform: Regular-No Restrictions Follow up Referrals: PCP Follow-up - 2-3 Days New Medications: Fluticasone 12 GM Inh (Flovent Hfa 12 GM Inh) 220 Mcg/Act Inh 2 PUFF INH BID Use daily at the same time. Asthma Management #1 Ref 11 INHALER Haloperidol (Haloperidol) 5 Mg Tab 5 MG PO Q4HR Anxiety and/or Insomnia Days 30 Ref 11 TAB Methylprednisolone Dosepak (Medrol Dosepak) 4 Mg Dspk 4 MG PO DIRECTED Per Pharmacist direction #1 Ref 0 DSPK Continued Medications: Acetaminophen (Tylenol) 325 Mg Tab 650 MG PO Q6H PRN PAIN SCALE 1 TO 4 #20 Ref 0 TAB Albuterol 8.5 GM Inh (Proair Hfa 8.5 GM Inh) 90 Mcg/Act Aer 1 PUFF INH Q4H 108 mcg/actuation PRN SHORTNESS OF BREATH Ref 0 INHALER Chlorthalidone (Chlorthalidone) 25 Mg Tab 12.5 MG PO DAILY Ref [address] (Duloxetine DR) 20 Mg Capdr 20 MG PO DAILY Ref 0 CAP Lisinopril (Lisinopril) 20 Mg Tab 20 MG PO DAILY #30 Ref 0 TAB Meloxicam (Mobic) 15 Mg Tab 15 MG PO DAILY Ref 0 TAB Metformin (Metformin) 1,000 Mg Tab 1000 MG PO BIDPC With meals Blood Sugar Management #60 Ref 0 TAB Metoclopramide (Metoclopramide) 10 Mg Tab 10 MG PO TIDAC Ref 0 TAB Morphine IR (Morphine IR) 15 Mg Tab 15 MG PO BID PRN PAIN Ref 0 TAB Pantoprazole (Protonix) 20 Mg Tab 40 MG PO DAILY Reflux #30 Ref 0 TAB Discontinued Medications: Azithromycin (Azithromycin) 250 Mg Tab 250 MG PO DIRECTED Take 2 tabs (500 mg) on day 1 then 1 tab daily x 4 days. Infection #6 Ref 0 TAB Budesonide-Formoterol Inh (Symbicort Inh) 160-4.5 Mcg/Act Aero 1 PUFF INH Q12HR #1 Ref 0 INHALER Fluticasone-Salmeterol Inh (Advair Diskus Inh) 250-50 Mcg/Blist Aer 1 PUFF INH BID Rinse mouth after use. #1 Ref 0 INHALER Prednisone (Prednisone) 20 Mg Tab 20 MG PO BID Days 5 Ref 0 TAB Bubba Reddy MD Nov 23, 2016 07:33
[2016-11-23 08:00] VITALS: BP 128/61; PULSE 84; RESP 20; TEMP 97.3; O2SAT 96
[2016-11-23 08:14] VITALS: O2SAT 94
[2016-11-23] MEDS: SODIUM CHLORIDE 0.9% FLUSH 10 ML FLUSH IV FLUSH SCH (09:00)
[2016-11-23 09:21] VITALS: PULSE 116
[2016-11-23] MEDS: METOCLOPRAMIDE HCL 10 MG TAB PO SCH (09:21)
[2016-11-23] MEDS: DOCUSATE SODIUM 50 MG/SENNA 8.6 MG TAB PO SCH (09:21)
[2016-11-23] MEDS: LISINOPRIL 20 MG TAB PO SCH (09:21)
[2016-11-23] MEDS: DULoxetine HCl DR 20 MG CAP PO SCH (09:21)
== END 2016-11-23 11:09 | disposition home or self-care (01) ==
LOC: NEPD 20:09 → NEDA 22:45 → NEPHCDU 23:51
PROVIDERS: ADMIT Family Medicine; ATTEND Family Medicine
DX: J45.901 Unspecified asthma with (acute) exacerbation (principal); R07.89 Other chest pain; R00.0 Tachycardia, unspecified; M32.9 Systemic lupus erythematosus, unspecified; D63.8 Anemia in other chronic diseases classified elsewhere; I10 Essential (primary) hypertension; M79.7 Fibromyalgia; E87.6 Hypokalemia; K21.9 Gastro-esophageal reflux disease without esophagitis; Z79.84 Long term (current) use of oral hypoglycemic drugs; E11.43 Type 2 diabetes mellitus with diabetic autonomic (poly)neuropathy; K31.84 Gastroparesis; F41.0 Panic disorder [episodic paroxysmal anxiety]; Z88.1 Allergy status to other antibiotic agents; Z86.73 Personal history of transient ischemic attack (TIA), and cerebral infarction without residual deficits; Z91.041 Radiographic dye allergy status; Z88.0 Allergy status to penicillin; Z91.013 Allergy to seafood; Z88.8 Allergy status to other drugs, medicaments and biological substances; Z91.018 Allergy to other foods; Z79.51 Long term (current) use of inhaled steroids
CPT/HCPCS: 71010; 78582; 80048; 80053; 82550; 82948; 83735; 84484; 85025; 85379; 93005; 94640; 94664; 96372; 96374; 96375; 96376; 99285; A9540; A9567; C9113; G0378; J1644; J1815; J2060; J2270; J2405; J2920; J7040

== ENCOUNTER 2016-11-29 14:38 | Emergency (ER) | payer OTHER ==
[~2016-11-29] VITALS: Ht 165.1 cm; Wt 100.0 kg
[~2016-11-29 14:38] MED LIST changes: -ADVA250A INH; -AZIT250T3 PO; -BACL10TA PO; +FLUTI220I INH; +HALO5TAB PO; +MEDR4PAK PO; -PRED20 PO; -PREG25 PO; -RABE1TAB PO; -SYMB160A INH
[2016-11-29 14:40] VITALS: BP 138/73; PULSE 134; RESP 30; TEMP 97.7; O2SAT 95
[2016-11-29 15:02] VITALS: BP 139/67; PULSE 118; RESP 22; O2SAT 98
[2016-11-29] MEDS: RESP: ALBUTEROL 2.5 MG/IPRATROPIUM 0.5 MG NEB (SCH) INH ×2 (15:45→15:50)
[2016-11-29] MEDS ORDERED: SODIUM CHLORIDE 0.9% FLUSH 10 ML FLUSH IVF PRN (15:45)
[2016-11-29] MEDS ORDERED: methylPREDNISolone SOD SUCC 125 MG/2 ML VIAL IVP ONE (15:45)
[2016-11-29] MEDS ORDERED: SODIUM CHLOR 0.9% 1000 ML INJ 1,000 ML IV SCH (16:03)
[2016-11-29 16:14] VITALS: BP 128/71; PULSE 115; RESP 21; O2SAT 98
[2016-11-29] MEDS ORDERED: LORazepam 2 MG/ML VIAL IV PUSH ONE (16:15)
[2016-11-29 16:21] LABS: HEMATOCRIT 30.4 % (35.0-46.0); HEMO FLAGS DIFF FINAL; LYMPH % 8.3 % (9.0-44.0); LYMPHOCYTE # 0.9 TH/MM3 (1.0-4.8); MEAN CELL VOLUME 68.2 FL (80.0-100.0); MEAN CORPUSCULAR HEMOGLOBIN 21.3 PG (27.0-34.0); MEAN CORPUSCULAR HGB CONC 31.3 % (32.0-36.0); MONO % 1.6 % (0.0-8.0); NEUT % 90.1 % (16.0-70.0); PLATELET COUNT 201 TH/MM3 (150-450); RED BLOOD COUNT 4.46 MIL/MM3 (4.00-5.30); RED CELL DISTRIBUTION WIDTH 19.4 % (11.6-17.2); WHITE BLOOD COUNT 11.2 TH/MM3 (4.0-11.0)
--- NOTE | 2016-11-29 16:27 | RADRPT ---
EXAM DATE/TIME: 11/29/2016 15:49 [facility] COMPARISON: CHEST SINGLE AP, November 21, 2016, 20:33. INDICATIONS : Shortness of Breath/ Wheezing MEDICAL HISTORY : Stroke. Asthma, Cardiovascular disease.Gastroesophageal reflux disease. Diabetes mellitus type 2. Hypertension. SURGICAL HISTORY : Cholecystectomy. ENCOUNTER: Initial ACUITY: 1 day PAIN SCORE: 0/10 LOCATION: Bilateral chest FINDINGS: A single view of the chest demonstrates the lungs to be symmetrically aerated without evidence of mas s, infiltrate or effusion. The cardiomediastinal contours are unremarkable. Osseous structures are intact. CONCLUSION: 1. No acute cardiopulmonary findings. Lito Glez MD on November 29, 2016 at 16:24 Board Certified Radiologist. This report was verified electronically.
--- NOTE | 2016-11-29 16:39 | EKG ---
Date Performed: 11/29/2016 Time Performed: 15:49:36 PTAGE: 46 years EKG: SUPRAVENTRICULAR TACHYCARDIA NONSPECIFIC ST DEPRESSION ABNORMAL ECG PREVIOUS TRACING : 11/21/2016 20.31 Compared to previous tracing, supraventricular tachycardia has replaced Sinus rhythm . DOCTOR: Yang Reddy Interpretating Date/Time 11/29/2016 16:38:36
[2016-11-29 16:42] LABS: ANION GAP 11 MEQ/L (5-15); BICARBONATE 25.3 MEQ/L (21.0-32.0); BLOOD UREA NITROGEN 21 MG/DL (7-18); CHLORIDE 101 MEQ/L (98-107); GLOMERULAR FILTRATION RATE 48 ML/MIN (>89); POTASSIUM 3.3 MEQ/L (3.5-5.1); SODIUM (NA) 137 MEQ/L (136-145)
[2016-11-29] MEDS ORDERED: PREG25 PO (17:15)
[2016-11-29] MEDS ORDERED: ALBU0.63 NEB (17:15)
[2016-11-29] MEDS ORDERED: PRED20 PO ×2 (17:15→17:31)
--- NOTE | 2016-11-29 17:26 | PD ---
Data Data Last Documented VS Vital Signs Date Time Temp Pulse Resp B/P Pulse Ox O2 Delivery O2 Flow Rate FiO2 11/29/16 16:14 98 Nasal Cannula 2 11/29/16 16:14 115 21 128/71 11/29/16 14:40 97.7 Orders Electrocardiogram (11/29/16 15:36) Basic Metabolic Panel (Bmp) (11/29/16 15:36) Complete Blood Count With Diff (11/29/16 15:36) Chest, Single Ap (11/29/16 15:36) Ecg Monitoring (11/29/16 15:36) Iv Access Insert/Monitor (11/29/16 15:36) Oximetry (11/29/16 15:36) Oxygen Administration (11/29/16 15:36) Methylprednisolone So Succ Inj (Solumedr (11/29/16 15:45) Albuterol-Ipratropium Neb (Duoneb Neb) (11/29/16 15:45) Sodium Chloride 0.9% Flush (Ns Flush) (11/29/16 15:45) Troponin I (11/29/16 15:36) Sodium Chlor 0.9% 1000 Ml Inj (Ns 1000 M (11/29/16 16:03) Lorazepam Inj (Ativan Inj) (11/29/16 16:15) Labs Laboratory Tests Test 11/29/16 15:45 White Blood Count 11.2 TH/MM3 Red Blood Count 4.46 MIL/MM3 Hemoglobin 9.5 GM/DL Hematocrit 30.4 % Mean Corpuscular Volume 68.2 FL Mean Corpuscular Hemoglobin 21.3 PG Mean Corpuscular Hemoglobin 31.3 % Concent Red Cell Distribution Width 19.4 % Platelet Count 201 TH/MM3 Mean Platelet Volume 11.5 FL Neutrophils (%) (Auto) 90.1 % Lymphocytes (%) (Auto) 8.3 % Monocytes (%) (Auto) 1.6 % Eosinophils (%) (Auto) 0.0 % Basophils (%) (Auto) 0.0 % Neutrophils # (Auto) 10.0 TH/MM3 Lymphocytes # (Auto) 0.9 TH/MM3 Monocytes # (Auto) 0.2 TH/MM3 Eosinophils # (Auto) 0.0 TH/MM3 Basophils # (Auto) 0.0 TH/MM3 CBC Comment DIFF FINAL Differential Comment Sodium Level 137 MEQ/L Potassium Level 3.3 MEQ/L Chloride Level 101 MEQ/L Carbon Dioxide Level 25.3 MEQ/L Anion Gap 11 MEQ/L Blood Urea Nitrogen 21 MG/DL Creatinine 1.21 MG/DL Estimat Glomerular Filtration 48 ML/MIN Rate Random Glucose 179 MG/DL Calcium Level 8.6 MG/DL Troponin I LESS THAN 0.02 NG/ML [facility] Supervised Visit with FLORECITA: Yes Narrative Course The history, exam, and medical decision-making in the associated mid-level provider note were completed with my assistance. I reviewed and agree with the findings presented. I attest that I had a [id number] encounter with the patient on the same day, and personally performed and documented my assessment and findings in the medical record. *My assessment and Findings: This is a somewhat bizarre 46 year-old woman presents emergent [place] shortness of breath and chest pain. Multiple previous evaluations for the same. She has a history of asthma. On exam she appears to be intentionally producing a wheezing sound with forced heart exhalation. I don't hear any real wheezing in the lungs. With distraction she doesn't seem to be in any respiratory distress. Heart rates elevated. He's been treated for in the past. She's a previous evaluations for PE that been negative. Workup today is negative. We'll recommend treatment for asthma exacerbation, follow-up for her anxiety. Jonnathan Pina MD Nov 29, 2016 17:26
--- NOTE | 2016-11-29 17:27 | PD ---
HPI Chief Complaint: Respiratory Symptoms Time Seen by Provider: 17:19 Travel History International Travel<30 days: No Contact w/Intl Traveler<30days: No Traveled to known affect area: No History of Present Illness HPI 46-year-old female that presents to the ED for evaluation of shortness of breath and chest discomfort. Per patient she has a history of asthma and uses nebulizers as well as inhalers and steroids. She did use this today. Per patient she was doing her laundry outside when she started having the symptoms. Per patient she uses her inhalers with no relief so she came here. She denies any abdominal pain. She does have a chronic history of fibromyalgia. Patient was seen here on the for similar. She was actually admitted because she continued to be tachycardic and continued to have symptoms. Patient had a VQ scan and full workup that was essentially unremarkable. I have actually seen this patient before for different complaints more related to pain and what appears to be fibromyalgia. Patient states that her discomfort in her chest is pressure-like and is 7 out of 10. She does have multiple allergies to medication. No urinary or bowel movement issues. No abdominal discomfort. PFSH Past Medical History Hx Anticoagulant Therapy: Yes Asthma: Yes Autoimmune Disease: Yes (LUPUS) Blood Disorders: No Anxiety: Yes Depression: No Heart Rhythm Problems: No Cancer: No Cardiovascular Problems: Yes (HTN) High Cholesterol: No Chest Pain: No Congestive Heart Failure: No COPD: No Cerebrovascular Accident: Yes (TIA) Diabetes: Yes Patient Takes Glucophage: No Diminished Hearing: No Fibromyalgia: Yes Gastrointestinal Disorders: Yes (GASTRITIS) GERD: Yes Genitourinary: No Hypertension: Yes Implanted Vascular Access Dvce: No Musculoskeletal: Yes (CARPAL TUNNEL) Neurologic: Yes (FIBROMYALGIA) Psychiatric: Yes Reproductive: No Respiratory: Yes Immunizations Current: Yes Sleep Apnea: No ?: Not LMP: 11/28/2016 : 2 Para: 2 Miscarriage: 0 : 0 Past Surgical History Section: Yes (X2) Cholecystectomy: Yes Other Surgery: Yes (tendonitis - R. HAND) Social History Alcohol Use: No Tobacco Use: No Substance Use: No Allergies-Medications (Allergen,Severity, Reaction): Coded Allergies: Iodine (Verified Allergy, Severe, Anaphylaxis, 11/29/16) Shellfish (Verified Allergy, Severe, Anaphylaxis, 11/29/16) Theophylline (Verified Allergy, Severe, Anaphylaxis, 11/29/16) Aminophylline (Verified Allergy, Intermediate, MAKES HER HYPER ELEVATES BP , 11/29/16) Benadryl (Verified Allergy, Intermediate, palpitations, 11/29/16) Naprosyn (Verified Allergy, Intermediate, Rash, 11/29/16) Penicillin (Verified Allergy, Intermediate, RASH, 11/29/16) Broccoli (Verified Allergy, Unknown, 11/29/16) Imuran (Verified Allergy, Unknown, 11/29/16) Keflex (Verified Allergy, Unknown, 11/29/16) Motrin (Verified Adverse Reaction, Mild, LUPUS, 11/29/16) Uncoded Allergies: Eggplant (Allergy, Intermediate, 10/09/16) AMRNOHILSON (Adverse Reaction, Severe, 10/09/16) .. Reported Meds & Prescriptions Reported Meds & Active Scripts Active Haloperidol 5 Mg Tab 5 Mg PO Q4HR 30 Days Medrol Dosepak (Methylprednisolone) 4 Mg Dspk 4 Mg PO DIRECTED Per Pharmacist direction Flovent Hfa 12 GM Inh (Fluticasone Propionate) 220 Mcg/Act Inh 2 Puff INH BID Use daily at the same time. Nebulizer 1 Mis Mis 1 Ea .ROUTE DIRECTED Tylenol (Acetaminophen) 325 Mg Tab 650 Mg PO Q6H PRN Protonix (Pantoprazole Sodium) 20 Mg Tab 40 Mg PO DAILY Reported Albuterol Neb (Albuterol Sulfate) 0.63 Mg/3 Ml Neb 0.63 Mg NEB Q6HR NEB PRN Prednisone 20 Mg Tab 20 Mg PO BID Lyrica (Pregabalin) 25 Mg Cap 25 Mg PO BID Morphine IR (Morphine Sulfate) 15 Mg Tab 15 Mg PO BID PRN Metoclopramide (Metoclopramide HCl) 10 Mg Tab 10 Mg PO TIDAC Lisinopril 20 Mg Tab 20 Mg PO DAILY Chlorthalidone 25 Mg Tab 12.5 Mg PO DAILY Mobic (Meloxicam) 15 Mg Tab 15 Mg PO DAILY Metformin (Metformin HCl) 1,000 Mg Tab 1,000 Mg PO BIDPC With meals Proair Hfa 8.5 GM Inh (Albuterol Sulfate) 90 Mcg/Act Aer 1 Puff INH Q4H PRN 108 mcg/actuation Duloxetine DR (Duloxetine HCl) 20 Mg Capdr 20 Mg PO DAILY Review of Systems Except as stated in HPI: all other systems reviewed are Neg Physical Exam Narrative GENERAL: SKIN: Warm and dry. HEAD: Atraumatic. Normocephalic. EYES: Pupils equal and round. No scleral icterus. No injection or drainage. ENT: No nasal bleeding or discharge. Mucous membranes pink and moist. Tongue is midline. No uvula deviation. NECK: Trachea midline. No JVD. CARDIOVASCULAR: Tachycardic rate and rhythm. No murmurs, S3, S4. Chest pain is not reproducible with touch. RESPIRATORY: No accessory muscle use. Minimal wheezing heard in exam. Breath sounds equal bilaterally. GASTROINTESTINAL: Abdomen soft, non-tender, nondistended. Hepatic and splenic margins not palpable. MUSCULOSKELETAL: Extremities without clubbing, cyanosis, or edema. No obvious deformities. Full range of motion of the upper and lower extremities bilaterally. 2+ pulses bilaterally. NEUROLOGICAL: Awake and alert. No obvious cranial nerve deficits. Motor grossly within normal limits. Five out of 5 muscle strength in the arms and legs. Normal speech. PSYCHIATRIC: Appropriate mood and affect; insight and judgment normal. Data Data Last Documented VS Vital Signs Date Time Temp Pulse Resp B/P Pulse Ox O2 Delivery O2 Flow Rate FiO2 11/29/16 16:14 98 Nasal Cannula 2 11/29/16 16:14 115 21 128/71 11/29/16 14:40 97.7 Orders Electrocardiogram (11/29/16 15:36) Basic Metabolic Panel (Bmp) (11/29/16 15:36) Complete Blood Count With Diff (11/29/16 15:36) Chest, Single Ap (11/29/16 15:36) Ecg Monitoring (11/29/16 15:36) Iv Access Insert/Monitor (11/29/16 15:36) Oximetry (11/29/16 15:36) Oxygen Administration (11/29/16 15:36) Methylprednisolone So Succ Inj (Solumedr (11/29/16 15:45) Albuterol-Ipratropium Neb (Duoneb Neb) (11/29/16 15:45) Sodium Chloride 0.9% Flush (Ns Flush) (11/29/16 15:45) Troponin I (11/29/16 15:36) Sodium Chlor 0.9% 1000 Ml Inj (Ns 1000 M (11/29/16 16:03) Lorazepam Inj (Ativan Inj) (11/29/16 16:15) Labs Laboratory Tests Test 11/29/16 15:45 White Blood Count 11.2 TH/MM3 Red Blood Count 4.46 MIL/MM3 Hemoglobin 9.5 GM/DL Hematocrit 30.4 % Mean Corpuscular Volume 68.2 FL Mean Corpuscular Hemoglobin 21.3 PG Mean Corpuscular Hemoglobin 31.3 % Concent Red Cell Distribution Width 19.4 % Platelet Count 201 TH/MM3 Mean Platelet Volume 11.5 FL Neutrophils (%) (Auto) 90.1 % Lymphocytes (%) (Auto) 8.3 % Monocytes (%) (Auto) 1.6 % Eosinophils (%) (Auto) 0.0 % Basophils (%) (Auto) 0.0 % Neutrophils # (Auto) 10.0 TH/MM3 Lymphocytes # (Auto) 0.9 TH/MM3 Monocytes # (Auto) 0.2 TH/MM3 Eosinophils # (Auto) 0.0 TH/MM3 Basophils # (Auto) 0.0 TH/MM3 CBC Comment DIFF FINAL Differential Comment Sodium Level 137 MEQ/L Potassium Level 3.3 MEQ/L Chloride Level 101 MEQ/L Carbon Dioxide Level 25.3 MEQ/L Anion Gap 11 MEQ/L Blood Urea Nitrogen 21 MG/DL Creatinine 1.21 MG/DL Estimat Glomerular Filtration 48 ML/MIN Rate Random Glucose 179 MG/DL Calcium Level 8.6 MG/DL Troponin I LESS THAN 0.02 NG/ML MDM Medical Decision Making Medical Screen Exam Complete: Yes Emergency Medical Condition: Yes Medical Record Reviewed: Yes Interpretation(s) EKG shows sinus tachycardia in the 120s. No sign of acute ischemia or arrhythmia noted by me and attending. CBC & BMP Diagram 11/29/16 15:45 CKMB and troponin negative CXR negative Differential Diagnosis Tachycardia versus COPD exacerbation versus asthma exacerbation versus bronchitis versus pneumonia versus anxiety versus less likely ACS Narrative Course 46-year-old female that presents to the ED for evaluation of chest pain or shortness of breath. Patient was properly examined and was found to have signs and symptoms which appear to be more consistent with asthma exacerbation and possible anxiety. She appears to have minimal wheezing on exam. She complains of pressure in her chest. She is somewhat tachycardic on exam. Labs and imaging ordered. Patient was given IV fluids. For sure because of her tachycardia with cannot give her any breathing treatments. She was given Ativan for her anxiety. My attending Dr. Pina evaluated the patient with me and agrees with plan. Labs and imaging showed no sign of acute disease. She was reassessed and her heart rates in the low 100s. At this time patient will be discharged home with prescriptions for prednisone, azithromycin, and for inhalers. Patient was told to continue taking her medications as prescribed. Close follow with PCP. See ED for any worsening symptoms. Diagnosis Primary Impression: Acute asthma exacerbation Qualified Code: J45.31 - Mild persistent asthma with acute exacerbation Additional Impression: Atypical chest pain Patient Instructions: General Instructions, Narcotic given in the ED Additional Instructions: Take medications as prescribed. Follow-up with PCP. See ED if any worsening symptoms. Med/Other Pt SpecificInfo: Prescription(s) given Disposition: 01 DISCHARGE HOME Condition: Stable Braxton Maldonado Nov 29, 2016 17:27
[2016-11-29] MEDS ORDERED: CIPR-9 PO (17:31)
[2016-11-29] MEDS ORDERED: ALBUAER3 INH (17:31)
[2016-11-29 18:42] VITALS: BP 121/72
== END 2016-11-29 18:43 | disposition home or self-care (01) ==
LOC: NEPC 14:38
DX: J45.31 Mild persistent asthma with (acute) exacerbation (principal); R07.89 Other chest pain; M79.7 Fibromyalgia; I10 Essential (primary) hypertension
CPT/HCPCS: 71010; 80048; 84484; 85025; 93005; 96361; 96374; 99285; J2060; J2930; J7030

== ENCOUNTER 2016-12-07 20:35 | Emergency (ER) | payer OTHER ==
[~2016-12-07] VITALS: Ht 160 cm; Wt 92.0 kg
[~2016-12-07 20:35] MED LIST changes: +ALBU0.63 NEB; +CIPR-9 PO; +PRED20 PO; +PREG25 PO
[2016-12-07 20:37] VITALS: BP 120/75; PULSE 115; RESP 22; TEMP 98.5; O2SAT 97
--- NOTE | 2016-12-07 20:57 | PD ---
Physical Exam Date Seen by Provider: Dec 07, 2016 Time Seen by Provider: 20:55 Narrative 46 yo female here for SOB and chest pain. Has been having asthma with SOB. Leg pain. Going on all day. Meds not helping. Dry cough. pain is 8/10. Cough going on for a week. Was seen here a week ago. Vitals are stable in triage. Awaiting bed placement. Data Data Last Documented VS Vital Signs Date Time Temp Pulse Resp B/P Pulse Ox O2 Delivery O2 Flow Rate FiO2 12/07/16 20:37 98.5 115 22 120/75 97 Room Air [facility] Medical Record Reviewed: Yes Supervised Visit with FLORECITA: No Braxton Maldonado Dec 07, 2016 20:57
[2016-12-07 21:06] VITALS: BP 138/76; PULSE 103; RESP 22; O2SAT 96
[2016-12-07] MEDS ORDERED: SODIUM CHLOR 0.9% 1000 ML INJ 1,000 ML IV ONE (21:15)
[2016-12-07] MEDS ORDERED: SODIUM CHLORIDE 0.9% FLUSH 10 ML FLUSH IVF PRN (21:15)
[2016-12-07] MEDS ORDERED: methylPREDNISolone SOD SUCC 125 MG/2 ML VIAL IVP ONE (21:15)
[2016-12-07 21:28] VITALS: O2SAT 99
[2016-12-07 21:32] LABS: AUTOMATED NEUTROPHIL # 8.2 TH/MM3 (1.8-7.7); BASOPHIL % 0.3 % (0.0-2.0); EOSINOPHIL % 0.3 % (0.0-4.0); HEMATOCRIT 29.5 % (35.0-46.0); HEMO FLAGS DIFF FINAL; LYMPH % 11.3 % (9.0-44.0); LYMPHOCYTE # 1.1 TH/MM3 (1.0-4.8); MEAN CELL VOLUME 67.8 FL (80.0-100.0); MEAN CORPUSCULAR HEMOGLOBIN 21.8 PG (27.0-34.0); MEAN CORPUSCULAR HGB CONC 32.2 % (32.0-36.0); MONO % 3.6 % (0.0-8.0); NEUT % 84.5 % (16.0-70.0); PLATELET COUNT 195 TH/MM3 (150-450); RED BLOOD COUNT 4.35 MIL/MM3 (4.00-5.30); RED CELL DISTRIBUTION WIDTH 19.3 % (11.6-17.2); WHITE BLOOD COUNT 9.7 TH/MM3 (4.0-11.0)
--- NOTE | 2016-12-07 21:34 | PD ---
HPI Chief Complaint: Respiratory Symptoms Time Seen by Provider: 21:01 Travel History International Travel<30 days: No Contact w/Intl Traveler<30days: No Traveled to known affect area: No History of Present Illness HPI Patient is a 46-year-old female with history of asthma, lupus, anxiety, TIA, gastritis, fibromyalgia, carpal tunnel syndrome who presents to emergency room with complaints of shortness of breath, weakness, chest pain. Patient reports that she has history of asthma, reports that she currently is taking prednisone 10 mg for her asthma attacks as she has been having more frequent attacks over the past month. She reports that she is also using her nebulizer treatments with no relief of symptoms. Patient reports that she has been feeling increasingly short of breath with increased wheezing, that she has also had a dry cough for the past 3 weeks, reports that when she coughs, her chest hurts her. Patient also reports that her fibromyalgia is acting up, diffuse pain all over body including cramping to her calf. Patient reports that she was recently admitted to the hospital and had a VQ scan which was negative for DVT. Patient with no history of DVT or PE in the past. Patient with no fevers or chills at this time. Patient reports that she did see her primary care doctor, Dr. Gallardo yesterday, who told her that she was having an asthma exacerbation. Patient reports that since she was not feeling any better, she decided to come to emergency room. PFSH Past Medical History Hx Anticoagulant Therapy: Yes Asthma: Yes Autoimmune Disease: Yes (LUPUS) Blood Disorders: No Anxiety: Yes Depression: No Heart Rhythm Problems: No Cancer: No Cardiovascular Problems: Yes (HTN) High Cholesterol: No Chest Pain: No Congestive Heart Failure: No COPD: No Cerebrovascular Accident: Yes (TIA) Diabetes: Yes Patient Takes Glucophage: Yes Diminished Hearing: No Fibromyalgia: Yes Gastrointestinal Disorders: Yes (GASTRITIS) GERD: Yes Genitourinary: No Hypertension: Yes Implanted Vascular Access Dvce: No Musculoskeletal: Yes (CARPAL TUNNEL) Neurologic: Yes (FIBROMYALGIA) Psychiatric: Yes Reproductive: No Respiratory: Yes Immunizations Current: Yes Sleep Apnea: No ?: Not : 2 Para: 2 Miscarriage: 0 : 0 Past Surgical History Section: Yes (X2) Cholecystectomy: Yes Other Surgery: Yes (tendonitis - R. HAND) Social History Alcohol Use: No Tobacco Use: No Substance Use: No Allergies-Medications (Allergen,Severity, Reaction): Coded Allergies: Iodine (Verified Allergy, Severe, Anaphylaxis, 12/07/16) Shellfish (Verified Allergy, Severe, Anaphylaxis, 12/07/16) Theophylline (Verified Allergy, Severe, Anaphylaxis, 12/07/16) Aminophylline (Verified Allergy, Intermediate, MAKES HER HYPER ELEVATES BP , 12/07/16) Benadryl (Verified Allergy, Intermediate, palpitations, 12/07/16) Naprosyn (Verified Allergy, Intermediate, Rash, 12/07/16) Penicillin (Verified Allergy, Intermediate, RASH, 12/07/16) Broccoli (Verified Allergy, Unknown, 12/07/16) Imuran (Verified Allergy, Unknown, 12/07/16) Keflex (Verified Allergy, Unknown, 12/07/16) Motrin (Verified Adverse Reaction, Mild, LUPUS, 12/07/16) Uncoded Allergies: Eggplant (Allergy, Intermediate, 10/09/16) AMRNOHILSON (Adverse Reaction, Severe, 10/09/16) .. Reported Meds & Prescriptions Reported Meds & Active Scripts Active Proair Hfa 8.5 GM Inh (Albuterol Sulfate) 90 Mcg/Act Aer 2 Puff INH Q4-6H PRN 108 mcg/actuation Cipro (Ciprofloxacin HCl) 500 Mg Tab 500 Mg PO BID 7 Days Haloperidol 5 Mg Tab 5 Mg PO Q4HR 30 Days Flovent Hfa 12 GM Inh (Fluticasone Propionate) 220 Mcg/Act Inh 2 Puff INH BID Use daily at the same time. Nebulizer 1 Mis Mis 1 Ea .ROUTE DIRECTED Protonix (Pantoprazole Sodium) 20 Mg Tab 40 Mg PO DAILY Reported Albuterol Neb (Albuterol Sulfate) 0.63 Mg/3 Ml Neb 0.63 Mg NEB Q6HR NEB PRN Prednisone 20 Mg Tab 10 Mg PO BID Lyrica (Pregabalin) 25 Mg Cap 25 Mg PO BID Morphine IR (Morphine Sulfate) 15 Mg Tab 15 Mg PO BID PRN Metoclopramide (Metoclopramide HCl) 10 Mg Tab 10 Mg PO TIDAC Lisinopril 20 Mg Tab 20 Mg PO DAILY Chlorthalidone 25 Mg Tab 12.5 Mg PO DAILY Mobic (Meloxicam) 15 Mg Tab 15 Mg PO DAILY Metformin (Metformin HCl) 1,000 Mg Tab 1,000 Mg PO BIDPC With meals Duloxetine DR (Duloxetine HCl) 20 Mg Capdr 20 Mg PO DAILY Review of Systems General / Constitutional: No: Fever, Chills Eyes: No: Visual changes HENT: No: Headaches Cardiovascular: Positive: Chest Pain or Discomfort Respiratory: Positive: Cough, Shortness of Breath, Wheezing Gastrointestinal: No: Abdominal Pain Genitourinary: No: Dysuria Musculoskeletal: Positive: Myalgias, Cramping (to b/l le's), No: Pain Skin: No Rash Neurologic: No: Weakness Psychiatric: No: Depression Endocrine: No: Polydipsia Hematologic/Lymphatic: No: Easy Bruising Physical Exam Narrative GENERAL: mild distress SKIN: Focused skin assessment warm/dry. HEAD: Atraumatic. Normocephalic. EYES: Pupils equal and round. No scleral icterus. No injection or drainage. ENT: No nasal bleeding or discharge. Mucous membranes pink and moist. NECK: Trachea midline. No JVD. CARDIOVASCULAR: Regular rate and rhythm. No murmur appreciated. RESPIRATORY: No accessory muscle use. patient with scattered wheezing to b/l upper and lower lobes of lungs GASTROINTESTINAL: Abdomen soft, non-tender, nondistended. Hepatic and splenic margins not palpable. MUSCULOSKELETAL: No obvious deformities. No clubbing. No cyanosis. No edema. Patient with b/l calf pain NEUROLOGICAL: Awake and alert. No obvious cranial nerve deficits. Motor grossly within normal limits. Normal speech. PSYCHIATRIC: Patient anxious on exam Data Data Last Documented VS Vital Signs Date Time Temp Pulse Resp B/P Pulse Ox O2 Delivery O2 Flow Rate FiO2 12/07/16 21:28 99 12/07/16 21:06 103 22 138/76 Room Air 12/07/16 20:37 98.5 Orders Complete Blood Count With Diff (12/07/16 21:14) Comprehensive Metabolic Panel (12/07/16 21:14) Chest, Single Ap (12/07/16 21:14) Ecg Monitoring (12/07/16 21:14) Iv Access Insert/Monitor (12/07/16 21:14) Oximetry (12/07/16 21:14) Methylprednisolone So Succ Inj (Solumedr (12/07/16 21:15) Albuterol-Ipratropium Neb (Duoneb Neb) (12/07/16 21:15) Sodium Chloride 0.9% Flush (Ns Flush) (12/07/16 21:15) Us Leg Venous Doppler Bilat (12/07/16 ) Sodium Chlor 0.9% 1000 Ml Inj (Ns 1000 M (12/07/16 21:15) Ckmb (Isoenzyme) Profile (12/07/16 21:15) Troponin I (12/07/16 21:15) Ankle, Limited (Ap&Lat) (12/07/16 ) Morphine Inj (Morphine Inj) (12/07/16 23:00) CKMB (12/07/16 21:15) CKMB% (12/07/16 21:15) Labs Laboratory Tests Test 12/07/16 21:15 White Blood Count 9.7 TH/MM3 Red Blood Count 4.35 MIL/MM3 Hemoglobin 9.5 GM/DL Hematocrit 29.5 % Mean Corpuscular Volume 67.8 FL Mean Corpuscular Hemoglobin 21.8 PG Mean Corpuscular Hemoglobin 32.2 % Concent Red Cell Distribution Width 19.3 % Platelet Count 195 TH/MM3 Mean Platelet Volume 11.5 FL Neutrophils (%) (Auto) 84.5 % Lymphocytes (%) (Auto) 11.3 % Monocytes (%) (Auto) 3.6 % Eosinophils (%) (Auto) 0.3 % Basophils (%) (Auto) 0.3 % Neutrophils # (Auto) 8.2 TH/MM3 Lymphocytes # (Auto) 1.1 TH/MM3 Monocytes # (Auto) 0.3 TH/MM3 Eosinophils # (Auto) 0.0 TH/MM3 Basophils # (Auto) 0.0 TH/MM3 CBC Comment DIFF FINAL Differential Comment Sodium Level 137 MEQ/L Potassium Level 3.7 MEQ/L Chloride Level 103 MEQ/L Carbon Dioxide Level 26.0 MEQ/L Anion Gap 8 MEQ/L Blood Urea Nitrogen 12 MG/DL Creatinine 1.06 MG/DL Estimat Glomerular Filtration 56 ML/MIN Rate Random Glucose 176 MG/DL Calcium Level 8.5 MG/DL Total Bilirubin 0.3 MG/DL Aspartate Amino Transf 23 U/L (AST/SGOT) Alanine Aminotransferase 42 U/L (ALT/SGPT) Alkaline Phosphatase 81 U/L Total Creatine Kinase 569 U/L Creatine Kinase MB 0.7 NG/ML Creatine Kinase MB % 0.1 % Troponin I LESS THAN 0.02 NG/ML Total Protein 7.3 GM/DL Albumin 3.6 GM/DL MDM Medical Decision Making Medical Screen Exam Complete: Yes Emergency Medical Condition: Yes Interpretation(s) EKG at 2107: NSR at 99bpm, qt/qtc: 338/394, no acute st or t wave changes Vital Signs Date Time Temp Pulse Resp B/P Pulse Ox O2 Delivery O2 Flow Rate FiO2 12/07/16 21:06 103 22 138/76 96 Room Air 12/07/16 21:04 104 20 96 Room Air 12/07/16 20:37 98.5 115 22 120/75 97 Room Air Differential Diagnosis Asthma exacerbation, pneumonia, ACS, arrhythmia, costochondritis, fibromyalgia, DVT, PE Narrative Course Patient is a 46-year-old female with multiple complaints, patient history of asthma, she is currently wheezing. Plan to give IV steroids as well as neb treatments. Patient complains of shortness of breath with wheezing, cough for the past 3 weeks as well as chest pain with her cough, I do believe that her chest pain is atypical in nature as it is only associated with cough. As per patient's shortness of breath, most likely symptoms are due to her asthma exacerbation. Patient did have a VQ scan in November, VQ scan performed on November 21, 2016 showed a normal perfusion lung scan with no segmental defects. Patient is complaining of bilateral calf cramping, bilateral ultrasound of her lower extremities were ordered to rule DVT. Patient was complaining of right- sided ankle pain which has been ongoing for the past month as she sprained it, requesting imaging of her right ankle this time. 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 Vital Signs Date Time Temp Pulse Resp B/P Pulse Ox O2 Delivery O2 Flow Rate FiO2 12/07/16 21:28 99 12/07/16 21:06 103 22 138/76 96 Room Air 12/07/16 21:04 104 20 96 Room Air 12/07/16 20:37 98.5 115 22 120/75 97 Room Air Laboratory Tests Test 12/07/16 21:15 White Blood Count 9.7 TH/MM3 (4.0-11.0) Red Blood Count 4.35 MIL/MM3 (4.00-5.30) Hemoglobin 9.5 GM/DL (11.6-15.3) Hematocrit 29.5 % (35.0-46.0) Mean Corpuscular Volume 67.8 FL (80.0-100.0) Mean Corpuscular Hemoglobin 21.8 PG (27.0-34.0) Mean Corpuscular Hemoglobin 32.2 % Concent (32.0-36.0) Red Cell Distribution Width 19.3 % (11.6-17.2) Platelet Count 195 TH/MM3 (150-450) Mean Platelet Volume 11.5 FL (7.0-11.0) Neutrophils (%) (Auto) 84.5 % (16.0-70.0) Lymphocytes (%) (Auto) 11.3 % (9.0-44.0) Monocytes (%) (Auto) 3.6 % (0.0-8.0) Eosinophils (%) (Auto) 0.3 % (0.0-4.0) Basophils (%) (Auto) 0.3 % (0.0-2.0) Neutrophils # (Auto) 8.2 TH/MM3 (1.8-7.7) Lymphocytes # (Auto) 1.1 TH/MM3 (1.0-4.8) Monocytes # (Auto) 0.3 TH/MM3 (0-0.9) Eosinophils # (Auto) 0.0 TH/MM3 (0-0.4) Basophils # (Auto) 0.0 TH/MM3 (0-0.2) CBC Comment DIFF FINAL Differential Comment Sodium Level 137 MEQ/L (136-145) Potassium Level 3.7 MEQ/L (3.5-5.1) Chloride Level 103 MEQ/L (98-107) Carbon Dioxide Level 26.0 MEQ/L (21.0-32.0) Anion Gap 8 MEQ/L (5-15) Blood Urea Nitrogen 12 MG/DL (7-18) Creatinine 1.06 MG/DL (0.50-1.00) Estimat Glomerular Filtration 56 ML/MIN (>89) Rate Random Glucose 176 MG/DL (74-106) Calcium Level 8.5 MG/DL (8.5-10.1) Total Bilirubin 0.3 MG/DL (0.2-1.0) Aspartate Amino Transf 23 U/L (15-37) (AST/SGOT) Alanine Aminotransferase 42 U/L (10-53) (ALT/SGPT) Alkaline Phosphatase 81 U/L (45-117) Total Protein 7.3 GM/DL (6.4-8.2) Albumin 3.6 GM/DL (3.4-5.0) Last Impressions Chest X-Ray 12/07/162113 Signed Impressions: Service Date/Time: Wednesday, December 07, 2016 21:33 - CONCLUSION: No acute disease. Gavino Ye MD Lower Extremity Ultrasound 12/07/16 0000 Signed Impressions: Service Date/Time: Tuesday, December 06, 2016 22:04 - CONCLUSION: Negative exam with no evidence of deep venous thrombosis. Gavino Ye MD Ankle X-Ray 12/07/16 0000 Signed Impressions: Service Date/Time: Wednesday, December 07, 2016 21:38 - CONCLUSION: Soft tissue swelling over the lateral malleolus with no acute fracture or malalignment on this limited two-view study. Gavino Ye MD Patient reevaluated, patient feeling much better at this time. Patient with resolution of wheezing after nebulizer treatments. I offered patient admission to the hospital as she has had multiple visits to the ER for asthma exacerbation , patient does not want to be admitted to the hospital. She currently is on prednisone at home - reports that she will just follow up with her primary care doctor this week. Patient reports that she did see dr. gallardo yesterday and will follow up with him this week. Reports that if she isn't feeling any better , she will return to the ER. Patient requesting a dose of morphine for her chronic pain/fibromyalgia. Plan to give her a dose of morphine at this time. Patient feeling much better at this time. She will follow up with Dr. Gallardo and will return to ER as needed. I encouraged patient to increase her fluid intake as her CK total was elevated today. Diagnosis Primary Impression: Acute asthma exacerbation Qualified Code: J45.901 - Asthma with acute exacerbation, unspecified asthma severity Additional Impressions: Leg cramping Ankle sprain Qualified Code: S93.401A - Sprain of right ankle, unspecified ligament, initial encounter Shortness of breath Anemia Patient Instructions: General Instructions Additional Instructions: Please return to emergency room as needed Please follow-up with your primary care doctor as soon as possible Return to emergency room if symptoms worsen or persist Dilma Coello DO Dec 07, 2016 21:33
[2016-12-07] MEDS: RESP: ALBUTEROL 2.5 MG/IPRATROPIUM 0.5 MG NEB (SCH) INH ×2 (21:38→21:39)
[2016-12-07 21:48] LABS: ALT (GPT) 42 U/L (10-53); ANION GAP 8 MEQ/L (5-15); AST (GOT) 23 U/L (15-37); BLOOD UREA NITROGEN 12 MG/DL (7-18); CHLORIDE 103 MEQ/L (98-107); GLOMERULAR FILTRATION RATE 56 ML/MIN (>89); POTASSIUM 3.7 MEQ/L (3.5-5.1); SODIUM (NA) 137 MEQ/L (136-145)
--- NOTE | 2016-12-07 21:49 | RADRPT ---
EXAM DATE/TIME: 12/07/2016 21:33 [facility] COMPARISON: CHEST SINGLE AP, November 29, 2016, 15:49. INDICATIONS : Chest pain. MEDICAL HISTORY : Stroke. Cardiovascular disease. Diabetes mellitus type II. Hypertension. SURGICAL HISTORY : Cholecystectomy. ENCOUNTER: Initial ACUITY: 1 day PAIN SCORE: 1/10 LOCATION: Bilateral chest FINDINGS: A single view of the chest demonstrates the lungs to be symmetrically aerated without evidence of mas s, infiltrate or effusion. The cardiomediastinal contours are unremarkable. Osseous structures are intact. CONCLUSION: No acute disease. Gavino Ye MD on December 07, 2016 at 21:47 Board Certified Radiologist. This report was verified electronically.
--- NOTE | 2016-12-07 21:50 | RADRPT ---
EXAM DATE/TIME: 12/07/2016 21:38 [facility] COMPARISON: No previous studies available for comparison. INDICATIONS : Right ankle pain after fall. MEDICAL HISTORY : None. SURGICAL HISTORY : None. ENCOUNTER: Initial ACUITY: 1 month PAIN SCORE: 10/10 LOCATION: Right lateral ankle. FINDINGS: A limited two-view examination of the right ankle was obtained in standard 3 view trauma series limit ing the sensitivity the exam. The bony structures are in normal alignment. No evidence of acute frac ture or malalignment. There is soft tissue swelling over lateral malleolus. There is a small spur off the inferior calcaneus.. No radiopaque foreign bodies are seen. Bony mineralization is normal. CONCLUSION: Soft tissue swelling over the lateral malleolus with no acute fracture or malalignment on this limite d two-view study. Gavino Ye MD on December 07, 2016 at 21:47 Board Certified Radiologist. This report was verified electronically.
[2016-12-07 21:51] LABS: ALKALINE PHOSPHATASE 81 U/L (45-117); TOTAL BILIRUBIN ADULT 0.3 MG/DL (0.2-1.0)
--- NOTE | 2016-12-07 22:40 | RADRPT ---
EXAM DATE/TIME: 12/06/2016 22:04 [facility] COMPARISON: No previous studies available for comparison. INDICATIONS : Bilateral leg swelling. MEDICAL HISTORY : Hypertension. Gastroesophageal reflux disease. Fibromyalgia. Transient ischemic attack. Gastritis. D iabetes. Lupus. SURGICAL HISTORY : Cholecystectomy. section. ENCOUNTER: Initial ACUITY: 2 months PAIN SCORE: 6/10 LOCATION: Bilateral leg. TECHNIQUE: Venous ultrasound of the left and right leg was performed from the inguinal ligament to the proximal calf. Real-time, color Doppler and spectral tracing, compression and augmentation techniques were us ed. FINDINGS: RIGHT LEG: There is normal compressibility of the deep venous system from the inguinal region to the proximal ca lf. No echogenic clot is seen in the lumen of the common femoral, femoral, popliteal, and posterior tibial veins. There is a normal response of the venous system to proximal and distal augmentation an d respiration. LEFT LEG: There is normal compressibility of the deep venous system from the inguinal region to the proximal ca lf. No echogenic clot is seen in the lumen of the common femoral, femoral, popliteal, and posterior tibial veins. There is a normal response of the venous system to proximal and distal augmentation an d respiration. CONCLUSION: Negative exam with no evidence of deep venous thrombosis. Gavino Ye MD on December 07, 2016 at 22:37 Board Certified Radiologist. This report was verified electronically.
[2016-12-07] MEDS ORDERED: MORPHINE SULFATE 4 MG/ML INJ IV PUSH ONE (23:00)
[2016-12-07 23:30] LABS: CREATINE KINASE 569 U/L (26-192)
[2016-12-07 23:42] LABS: CKMB 0.7 NG/ML (0.5-3.6)
[2016-12-08 00:20] VITALS: BP 124/68; PULSE 108; RESP 16; O2SAT 99
--- NOTE | 2016-12-08 07:53 | EKG ---
Date Performed: 12/07/2016 Time Performed: 21:07:54 PTAGE: 46 years EKG: Sinus rhythm POSSIBLE LEFT ATRIAL ENLARGEMENT BORDERLINE ECG PREVIOUS TRACING : 12/07/2016 21.07 DOCTOR: Kain Luna Interpretating Date/Time 12/08/2016 07:50:15
== END 2016-12-08 00:23 | disposition home or self-care (01) ==
LOC: NEPC 20:35
DX: J45.901 Unspecified asthma with (acute) exacerbation (principal); R25.2 Cramp and spasm; S93.401A Sprain of unspecified ligament of right ankle, initial encounter; D64.9 Anemia, unspecified; M32.9 Systemic lupus erythematosus, unspecified; F41.9 Anxiety disorder, unspecified; M79.7 Fibromyalgia; K29.70 Gastritis, unspecified, without bleeding; X58.XXXA Exposure to other specified factors, initial encounter
CPT/HCPCS: 71010; 73600; 80053; 82550; 82552; 84484; 85025; 93005; 93970; 94640; 94664; 96361; 96374; 96375; 99285; J2270; J2930; J7030

== ENCOUNTER 2016-12-14 14:32 | Emergency (ER) | payer OTHER ==
[~2016-12-14] VITALS: Ht 160 cm; Wt 90.0 kg
[2016-12-14 14:40] VITALS: BP 134/71; PULSE 110; RESP 18; O2SAT 98
[2016-12-14] MEDS ORDERED: SODIUM CHLORIDE 0.9% FLUSH 10 ML FLUSH IV FLUSH PRN (15:00)
[2016-12-14] MEDS ORDERED: DICYCLOMINE HCL 20 MG/2 ML VIAL IM ONE (15:00)
--- NOTE | 2016-12-14 15:16 | PD ---
HPI . Abdominal pain Chief Complaint: Abdominal Pain Time Seen by Provider: 14:47 Travel History International Travel<30 days: No Contact w/Intl Traveler<30days: No Traveled to known affect area: No History of Present Illness HPI Patient presents for recurrent abdominal pain. Most of the history is obtained from this patient's . She is extremely distraught. She is complaining with acute abdominal pain which started while she was at the doctor's office today. She has had some associated nausea and vomiting. She states her stools are always loose. She denies any fever. She denies any urinary symptoms. She describes the pain as crampy and rates it 10/10. No exacerbating or relieving factor. reports that she has a history of fibromyalgia. Review of her records reveals a diagnosis of gastroparesis. PFSH Past Medical History Hx Anticoagulant Therapy: Yes Asthma: Yes Autoimmune Disease: Yes (LUPUS) Blood Disorders: No Anxiety: Yes Depression: No Heart Rhythm Problems: No Cancer: No Cardiovascular Problems: Yes (HTN) High Cholesterol: No Chest Pain: No Congestive Heart Failure: No COPD: No Cerebrovascular Accident: Yes (TIA) Diabetes: Yes Patient Takes Glucophage: No Diminished Hearing: No Fibromyalgia: Yes Gastrointestinal Disorders: Yes (GASTRITIS) GERD: Yes Genitourinary: No Hypertension: Yes Implanted Vascular Access Dvce: No Musculoskeletal: Yes (CARPAL TUNNEL) Neurologic: Yes (FIBROMYALGIA) Psychiatric: Yes Reproductive: No Respiratory: Yes Immunizations Current: Yes Sleep Apnea: No ?: Unknown LMP: november 18, 2016 : 2 Para: 2 Miscarriage: 0 : 0 Past Surgical History Section: Yes (X2) Cholecystectomy: Yes Other Surgery: Yes (tendonitis - R. HAND) Social History Alcohol Use: No Tobacco Use: No Substance Use: No Allergies-Medications (Allergen,Severity, Reaction): Coded Allergies: Iodine (Verified Allergy, Severe, Anaphylaxis, 12/14/16) Shellfish (Verified Allergy, Severe, Anaphylaxis, 12/14/16) Theophylline (Verified Allergy, Severe, Anaphylaxis, 12/14/16) Aminophylline (Verified Allergy, Intermediate, MAKES HER HYPER ELEVATES BP , 12/14/16) Benadryl (Verified Allergy, Intermediate, palpitations, 12/14/16) Naprosyn (Verified Allergy, Intermediate, Rash, 12/14/16) Penicillin (Verified Allergy, Intermediate, RASH, 12/14/16) Broccoli (Verified Allergy, Unknown, 12/14/16) Imuran (Verified Allergy, Unknown, 12/14/16) Keflex (Verified Allergy, Unknown, 12/14/16) Motrin (Verified Adverse Reaction, Mild, LUPUS, 12/14/16) Uncoded Allergies: Eggplant (Allergy, Intermediate, 10/09/16) AMRNOHILSON (Adverse Reaction, Severe, 10/09/16) .. Reported Meds & Prescriptions Reported Meds & Active Scripts Active Proair Hfa 8.5 GM Inh (Albuterol Sulfate) 90 Mcg/Act Aer 2 Puff INH Q4-6H PRN 108 mcg/actuation Cipro (Ciprofloxacin HCl) 500 Mg Tab 500 Mg PO BID 7 Days Haloperidol 5 Mg Tab 5 Mg PO Q4HR 30 Days Flovent Hfa 12 GM Inh (Fluticasone Propionate) 220 Mcg/Act Inh 2 Puff INH BID Use daily at the same time. Nebulizer 1 Mis Mis 1 Ea .ROUTE DIRECTED Protonix (Pantoprazole Sodium) 20 Mg Tab 40 Mg PO DAILY Reported Albuterol Neb (Albuterol Sulfate) 0.63 Mg/3 Ml Neb 0.63 Mg NEB Q6HR NEB PRN Prednisone 20 Mg Tab 10 Mg PO BID Lyrica (Pregabalin) 25 Mg Cap 25 Mg PO BID Morphine IR (Morphine Sulfate) 15 Mg Tab 15 Mg PO BID PRN Metoclopramide (Metoclopramide HCl) 10 Mg Tab 10 Mg PO TIDAC Lisinopril 20 Mg Tab 20 Mg PO DAILY Chlorthalidone 25 Mg Tab 12.5 Mg PO DAILY Mobic (Meloxicam) 15 Mg Tab 15 Mg PO DAILY Metformin (Metformin HCl) 1,000 Mg Tab 1,000 Mg PO BIDPC With meals Duloxetine DR (Duloxetine HCl) 20 Mg Capdr 20 Mg PO DAILY Review of Systems Except as stated in HPI: all other systems reviewed are Neg General / Constitutional: No: Fever, Chills Cardiovascular: No: Chest Pain or Discomfort Respiratory: No: Shortness of Breath Gastrointestinal: Positive: Nausea, Vomiting, Diarrhea, Abdominal Pain Genitourinary: No: Urgency, Frequency, Dysuria Physical Exam Narrative GENERAL: Very anxious. Moaning. SKIN: Warm and dry. HEAD: Atraumatic. Normocephalic. EYES: Pupils equal and round. Extraocular movements are intact. ENT: No nasal bleeding or discharge. Mucous membranes pink and moist. NECK: Trachea midline. Neck is supple. CARDIOVASCULAR: Regular rate and rhythm. Heart sounds are normal. RESPIRATORY: No accessory muscle use. Lungs are clear with good air movement throughout. GASTROINTESTINAL: Abdomen soft. Bowel sounds positive. Diffuse upper abdominal tenderness without guarding or rebound. Nondistended. MUSCULOSKELETAL: No obvious deformities. No edema. NEUROLOGICAL: Awake and alert. No obvious cranial nerve deficits. Motor grossly within normal limits. Normal speech. PSYCHIATRIC: Anxious. Somewhat inappropriate. Data Data Last Documented VS Vital Signs Date Time Temp Pulse Resp B/P Pulse Ox O2 Delivery O2 Flow Rate FiO2 12/14/16 14:40 110 18 134/71 98 Room Air Orders Complete Blood Count With Diff (12/14/16 14:48) Comprehensive Metabolic Panel (12/14/16 14:48) Urinalysis - C+S If Indicated (12/14/16 14:48) Iv Access Insert/Monitor (12/14/16 14:48) Sodium Chloride 0.9% Flush (Ns Flush) (12/14/16 15:00) Ed Urine Pregnancytest Poc (12/14/16 14:48) Dicyclomine Inj (Bentyl Inj) (12/14/16 15:00) Lorazepam Inj (Ativan Inj) (12/14/16 15:45) Lorazepam Inj (Ativan Inj) (12/14/16 16:15) Labs Laboratory Tests Test 12/14/16 12/14/16 15:00 15:10 White Blood Count 11.4 TH/MM3 Red Blood Count 4.43 MIL/MM3 Hemoglobin 9.8 GM/DL Hematocrit 30.5 % Mean Corpuscular Volume 68.8 FL Mean Corpuscular Hemoglobin 22.2 PG Mean Corpuscular Hemoglobin 32.3 % Concent Red Cell Distribution Width 19.5 % Platelet Count 208 TH/MM3 Mean Platelet Volume 11.3 FL Neutrophils (%) (Auto) 72.8 % Lymphocytes (%) (Auto) 19.6 % Monocytes (%) (Auto) 5.7 % Eosinophils (%) (Auto) 1.3 % Basophils (%) (Auto) 0.6 % Neutrophils # (Auto) 8.3 TH/MM3 Lymphocytes # (Auto) 2.2 TH/MM3 Monocytes # (Auto) 0.7 TH/MM3 Eosinophils # (Auto) 0.2 TH/MM3 Basophils # (Auto) 0.1 TH/MM3 CBC Comment AUTO DIFF Sodium Level 135 MEQ/L Potassium Level 3.5 MEQ/L Chloride Level 99 MEQ/L Carbon Dioxide Level 25.7 MEQ/L Anion Gap 10 MEQ/L Blood Urea Nitrogen 11 MG/DL Creatinine 0.85 MG/DL Estimat Glomerular Filtration 72 ML/MIN Rate Random Glucose 107 MG/DL Calcium Level 8.9 MG/DL Total Bilirubin 0.5 MG/DL Aspartate Amino Transf 59 U/L (AST/SGOT) Alanine Aminotransferase 69 U/L (ALT/SGPT) Alkaline Phosphatase 89 U/L Total Protein 7.7 GM/DL Albumin 3.8 GM/DL Urine Color YELLOW Urine Turbidity CLEAR Urine pH 5.5 Urine Specific [place] 1.008 Urine Protein NEG mg/dL Urine Glucose (UA) NEG mg/dL Urine Ketones NEG mg/dL Urine Occult Blood NEG Urine Nitrite NEG Urine Bilirubin NEG Urine Urobilinogen LESS THAN 2.0 MG/DL Urine Leukocyte Esterase NEG Urine RBC LESS THAN 1 /hpf Urine WBC LESS THAN 1 /hpf Urine Squamous Epithelial <1 /hpf Cells Urine Mucus FEW /lpf Microscopic Urinalysis Comment CULT NOT INDICATED MDM Medical Decision Making Medical Screen Exam Complete: Yes Emergency Medical Condition: Yes Medical Record Reviewed: Yes (this is this patient's seventh visit to the emergency department in 2 months. She was admitted in October with abdominal pain and had a full workup at that time. Small bowel follow-through showed delayed emptying consistent with gastroparesis.) Differential Diagnosis Differential diagnosis of abdominal pain includes but is not limited to gastritis, pancreatitis, hepatitis, gastroenteritis, gallbladder disease, constipation, urinary retention, UTI, peptic ulcer disease, diverticulitis or appendicitis Narrative Course This is a histrionic patient who presents complaining with abdominal pain which started while she was at the doctor's office today. I have given her a dose of Bentyl. I have ordered baseline labs. This patient is gagging loudly but is producing no emesis. CBC & BMP Diagram 12/14/16 15:00 UA is negative. The history, exam, diagnostic testing, and current condition do not suggest any significant pathology to warrant further testing, continued ED treatment, admission, or surgical evaluation at this point. The patient's condition is stable and appropriate for discharge. Diagnosis Primary Impression: Abdominal pain Qualified Code: R10.84 - Generalized abdominal pain Patient Instructions: Abdominal Pain (ED), General Instructions Disposition: 01 DISCHARGE HOME Condition: Stable Lissette Tejada MD Dec 14, 2016 15:16
[2016-12-14] MEDS ORDERED: LORazepam 2 MG/ML VIAL IV PUSH ONE (15:45)
[2016-12-14 15:47] LABS: BLOOD, URINE NEG (NEG); COMMENT (UR) CULT NOT INDICATED; CULTURE IF INDICATED CULT NOT INDICATED; GLUCOSE,URINE NEG (NEG); KETONE, URINE NEG (NEG); MUCUS URINE FEW /lpf (OCC); NITRITE,URINE NEG (NEG); PH, URINE 5.5 (5.0-8.5); SQUAMOUS EPITHELIAL CELL URINE <1 /hpf (0-5); URINE COLOR YELLOW (YELLW/STRAW)
[2016-12-14 16:12] LABS: ALT (GPT) 69 U/L (10-53); ANION GAP 10 MEQ/L (5-15); AST (GOT) 59 U/L (15-37); BICARBONATE 25.7 MEQ/L (21.0-32.0); BLOOD UREA NITROGEN 11 MG/DL (7-18); CHLORIDE 99 MEQ/L (98-107); GLOMERULAR FILTRATION RATE 72 ML/MIN (>89); POTASSIUM 3.5 MEQ/L (3.5-5.1); SODIUM (NA) 135 MEQ/L (136-145)
[2016-12-14 16:15] LABS: ALKALINE PHOSPHATASE 89 U/L (45-117); AUTOMATED NEUTROPHIL # 8.3 TH/MM3 (1.8-7.7); BASOPHIL # 0.1 TH/MM3 (0-0.2); BASOPHIL % 0.6 % (0.0-2.0); EOSINOPHIL # 0.2 TH/MM3 (0-0.4); EOSINOPHIL % 1.3 % (0.0-4.0); HEMATOCRIT 30.5 % (35.0-46.0); LYMPH % 19.6 % (9.0-44.0); LYMPHOCYTE # 2.2 TH/MM3 (1.0-4.8); MEAN CELL VOLUME 68.8 FL (80.0-100.0); MEAN CORPUSCULAR HEMOGLOBIN 22.2 PG (27.0-34.0); MEAN CORPUSCULAR HGB CONC 32.3 % (32.0-36.0); MONO % 5.7 % (0.0-8.0); NEUT % 72.8 % (16.0-70.0); PLATELET COUNT 208 TH/MM3 (150-450); RED BLOOD COUNT 4.43 MIL/MM3 (4.00-5.30); RED CELL DISTRIBUTION WIDTH 19.5 % (11.6-17.2); TOTAL BILIRUBIN ADULT 0.5 MG/DL (0.2-1.0)
[2016-12-14] MEDS ORDERED: LORazepam 2 MG/ML VIAL IM ONE (16:15)
[2016-12-14 16:16] LABS: HEMO FLAGS AUTO DIFF; WHITE BLOOD COUNT 11.4 TH/MM3 (4.0-11.0)
[2016-12-14 16:42] LABS: PLATELET ESTIMATE SMEAR NORMAL (NORMAL); PLATELET MORPHOLOGY ENLARGED (NORMAL); SCAN/DIFF AUTO DIFF CONFIRMED
== END 2016-12-14 17:09 | disposition home or self-care (01) ==
LOC: NEPD 14:32
DX: R10.84 Generalized abdominal pain (principal); M32.9 Systemic lupus erythematosus, unspecified; E11.43 Type 2 diabetes mellitus with diabetic autonomic (poly)neuropathy; F41.9 Anxiety disorder, unspecified; I10 Essential (primary) hypertension; Z86.73 Personal history of transient ischemic attack (TIA), and cerebral infarction without residual deficits; M79.7 Fibromyalgia; Z79.01 Long term (current) use of anticoagulants; Z79.84 Long term (current) use of oral hypoglycemic drugs
CPT/HCPCS: 80053; 81001; 84703; 85025; 96372; 99284; J0500; J2060

== ENCOUNTER 2017-01-08 13:08 | Emergency (ER) | payer OTHER ==
[~2017-01-08] VITALS: Ht 160 cm; Wt 90.0 kg
[~2017-01-08 13:08] MED LIST changes: -MEDR4PAK PO; -TYLE325T PO
[2017-01-08 13:11] VITALS: BP 159/88; PULSE 100; RESP 24; TEMP 98.7; O2SAT 97
[2017-01-08] MEDS ORDERED: SODIUM CHLOR 0.9% 1000 ML INJ 1,000 ML IV ONE (13:45)
[2017-01-08] MEDS ORDERED: DEXAMETHASONE SOD PHOS 4 MG/ML VIAL IV PUSH ONE (13:45)
[2017-01-08] MEDS ORDERED: METOCLOPRAMIDE HCL 10 MG/2 ML VIAL IVP ONE (13:45)
[2017-01-08] MEDS ORDERED: diphenhydrAMINE HCL 50 MG/ML VIAL IV PUSH ONE (13:45)
[2017-01-08] MEDS ORDERED: SODIUM CHLORIDE 0.9% FLUSH 10 ML FLUSH IVF PRN (13:45)
--- NOTE | 2017-01-08 13:53 | PD ---
HPI Chief Complaint: Headache Time Seen by Provider: 13:35 Travel History International Travel<30 days: No Contact w/Intl Traveler<30days: No Traveled to known affect area: No History of Present Illness HPI Patient is a 46-year-old female who presents the emergency department with complaint of headache. Patient states that 3 days ago while hanging laundry outside on the line patient had a gradual onset headache. This is bilateral, mostly frontal/retro-orbital. Associated with photophobia, phonophobia, nausea but no vomiting. Patient also complains of visual scotoma, with dancing lights , "electric worms". Patient has been taking [id number] Tylenol without improvement of her headache. Notes a history of similar headaches, though not lasting this many days in a row. She denies any history of nocturnal symptoms, fevers, neck stiffness, neuro deficits. PFSH Past Medical History Hx Anticoagulant Therapy: Yes Asthma: Yes Autoimmune Disease: Yes (LUPUS) Blood Disorders: No Anxiety: Yes Depression: No Heart Rhythm Problems: No Cancer: No Cardiovascular Problems: Yes (htn) High Cholesterol: No Chest Pain: No Congestive Heart Failure: No COPD: No Cerebrovascular Accident: Yes (TIA) Diabetes: Yes (metformin) Patient Takes Glucophage: Yes Diminished Hearing: No Fibromyalgia: Yes Gastrointestinal Disorders: Yes (GASTRITIS, GASTRPORESIS) GERD: Yes Genitourinary: No Hypertension: Yes Implanted Vascular Access Dvce: No Musculoskeletal: Yes (CARPAL TUNNEL) Neurologic: Yes (FIBROMYALGIA) Psychiatric: Yes Reproductive: No Respiratory: Yes (asthma) Immunizations Current: Yes Sleep Apnea: No ?: Unknown LMP: 11/2016 : 2 Para: 2 Miscarriage: 0 : 0 Past Surgical History Section: Yes (X2) Cholecystectomy: Yes Other Surgery: Yes (tendonitis - R. HAND) Social History Alcohol Use: No Tobacco Use: No Substance Use: No Allergies-Medications (Allergen,Severity, Reaction): Coded Allergies: Iodine (Verified Allergy, Severe, Anaphylaxis, 01/08/17) Shellfish (Verified Allergy, Severe, Anaphylaxis, 01/08/17) Theophylline (Verified Allergy, Severe, Anaphylaxis, 01/08/17) Aminophylline (Verified Allergy, Intermediate, MAKES HER HYPER ELEVATES BP , 01/08/17) Naprosyn (Verified Allergy, Intermediate, Rash, 01/08/17) Penicillin (Verified Allergy, Intermediate, RASH, 01/08/17) Broccoli (Verified Allergy, Unknown, 01/08/17) Imuran (Verified Allergy, Unknown, 01/08/17) Keflex (Verified Allergy, Unknown, 01/08/17) Benadryl (Verified Adverse Reaction, Mild, palpitations, 01/08/17) pushed too quickly Motrin (Verified Adverse Reaction, Mild, LUPUS, 01/08/17) Uncoded Allergies: Eggplant (Allergy, Intermediate, 10/09/16) AMRNOHILSON (Adverse Reaction, Severe, 10/09/16) .. Reported Meds & Prescriptions Reported Meds & Active Scripts Active Proair Hfa 8.5 GM Inh (Albuterol Sulfate) 90 Mcg/Act Aer 2 Puff INH Q4-6H PRN 108 mcg/actuation Haloperidol 5 Mg Tab 5 Mg PO Q4HR 30 Days Flovent Hfa 12 GM Inh (Fluticasone Propionate) 220 Mcg/Act Inh 2 Puff INH BID Use daily at the same time. Nebulizer 1 Mis Mis 1 Ea .ROUTE DIRECTED Reported Ambien (Zolpidem Tartrate) 10 Mg Tab 10 Mg PO HS Pantoprazole (Pantoprazole Sodium) 40 Mg Tab 40 Mg PO DAILY PRN Lyrica (Pregabalin) 50 Mg Cap 50 Mg PO TID Albuterol Neb (Albuterol Sulfate) 0.63 Mg/3 Ml Neb 0.63 Mg NEB Q6HR NEB PRN Metoclopramide (Metoclopramide HCl) 10 Mg Tab 10 Mg PO TIDAC Lisinopril 20 Mg Tab 20 Mg PO DAILY Chlorthalidone 25 Mg Tab 12.5 Mg PO DAILY Mobic (Meloxicam) 15 Mg Tab 15 Mg PO DAILY Metformin (Metformin HCl) 1,000 Mg Tab 1,000 Mg PO BIDPC PRN With meals Duloxetine DR (Duloxetine HCl) 20 Mg Capdr 20 Mg PO DAILY Review of Systems Except as stated in HPI: all other systems reviewed are Neg Physical Exam Narrative GENERAL: Middle-aged female sitting in a dark room with cool washcloth over her eyes SKIN: Focused skin assessment warm/dry. HEAD: Atraumatic. Normocephalic. EYES: Pupils equal and round. 3 mm. Briskly reactive. No afferent pupillary defect. EOMI. No scleral icterus. No injection or drainage. ENT: No nasal bleeding or discharge. Mucous membranes pink and moist. NECK: Supple without nuchal rigidity CARDIOVASCULAR: Regular rate and rhythm. RESPIRATORY: No accessory muscle use. GASTROINTESTINAL: Obese MUSCULOSKELETAL: No obvious deformities. No edema. NEUROLOGICAL: Awake and alert. No obvious cranial nerve deficits. Motor grossly within normal limits. Normal speech. PSYCHIATRIC: Appropriate mood and affect; insight and judgment normal. Data Data Last Documented VS Vital Signs Date Time Temp Pulse Resp B/P Pulse Ox O2 Delivery O2 Flow Rate FiO2 01/08/17 14:10 98.1 92 17 133/82 99 Room Air Orders Iv Access Insert/Monitor (01/08/17 13:43) Oximetry (01/08/17 13:43) Sodium Chloride 0.9% Flush (Ns Flush) (01/08/17 13:45) Metoclopramide Inj (Reglan Inj) (01/08/17 13:45) Dexamethasone Inj (Decadron Inj) (01/08/17 13:45) Sodium Chlor 0.9% 1000 Ml Inj (Ns 1000 M (01/08/17 13:45) Diphenhydramine Inj (Benadryl Inj) (01/08/17 13:45) Ct Brain W/O Iv Contrast(Rout) (01/08/17 ) Prochlorperazine Inj (Compazine Inj) (01/08/17 16:00) Magnesium Sulfate 1 Gm Premix (Magnesium (01/08/17 16:00) Sumatriptan Succinate (Imitrex) (01/08/17 16:00) MDM Medical Decision Making Medical Screen Exam Complete: Yes Emergency Medical Condition: Yes Medical Record Reviewed: Yes Differential Diagnosis 46-year-old female with history of lupus, fibromyalgia, chronic abdominal pain and gastroparesis here with 3 days of gradual onset headache with photophobia, phonophobia, nausea and vomiting. Differential includes migraine headache, tension headache, cluster headache, lupus cerebritis. Patient has been afebrile , no neck stiffness or noctural headaches, is well-appearing, with a normal neurologic examination. This makes infection and subarachnoid hemorrhage very unlikely. There is not enough evidence to pursue these diagnoses. Narrative Course Patient placed on monitor. Given 1 L normal saline bolus, 10 mg Reglan, 8 mg Decadron, [address] of the brain was obtained and negative. Patient got little relief with the above regimen and was given 10 mg Compazine, 1 g magnesium and 50 Motrin grams Imitrex with relief of her headache. Patient appreciative and discharged home. Diagnosis Primary Impression: Migraine headache Qualified Code: G43.109 - Migraine with aura and without status migrainosus, not intractable Referrals: Primary Care Physician as needed Additional Instructions: Follow-up with primary care provider if symptoms persist. Return to the ER for the warning signs discussed. Med/Other Pt SpecificInfo: No Change to Meds Disposition: 01 DISCHARGE HOME Condition: Stable Deepthi Sánchez MD Jan 08, 2017 13:53
[2017-01-08 14:10] VITALS: BP 133/82; PULSE 92; RESP 17; TEMP 98.1; O2SAT 99
[2017-01-08] MEDS ORDERED: PANT40TA3 PO (15:08)
[2017-01-08] MEDS ORDERED: LYRI50CA PO (15:08)
[2017-01-08] MEDS ORDERED: AMBI10TA PO (15:11)
--- NOTE | 2017-01-08 15:43 | RADRPT ---
EXAM DATE/TIME: 01/08/2017 15:33 [facility] COMPARISON: CT BRAIN W/O CONTRAST, November 19, 2016, 20:40. INDICATIONS : Severe headache, pain behind eyes. Nausea and vomiting. RADIATION DOSE: 35.62 CTDIvol (mGy) MEDICAL HISTORY : Cerebrovascular disease. Cardiovascular disease. Hypertension. Diabetes, Lupus SURGICAL HISTORY : Cholecystectomy. ENCOUNTER: Initial ACUITY: 3 days PAIN SCALE: 10/10 LOCATION: Bilateral cranial TECHNIQUE: Multiple contiguous axial images were obtained of the head. Using automated exposure control and adj ustment of the mA and/or kV according to patient size, radiation dose was kept as low as reasonably a chievable to obtain optimal diagnostic quality images. DICOM format image data is available electro nically for review and comparison. FINDINGS: CEREBRUM: The ventricles are normal for age. No evidence of midline shift, mass lesion, hemorrhage or acute in farction. No extra-axial fluid collections are seen. POSTERIOR FOSSA: The cerebellum and brainstem are intact. The 4th ventricle is midline. The cerebellopontine angle i s unremarkable. EXTRACRANIAL: The visualized portion of the orbits is intact. SKULL: The calvaria is intact. No evidence of skull fracture. CONCLUSION: No acute disease. Ian Apple MD on January 08, 2017 at 15:39 Board Certified Radiologist. This report was verified electronically.
[2017-01-08] MEDS ORDERED: PROCHLORPERAZINE INJ 10 MG/2 ML VIAL IVP ONE (16:00)
[2017-01-08] MEDS ORDERED: SUMAtriptan SUCCINATE 50 MG TAB PO ONE (16:00)
[2017-01-08] MEDS ORDERED: MAGNESIUM SULFATE 1 GM PREMIX 100 ML IV ONE (16:00)
[2017-01-08 17:36] VITALS: RESP 16
== END 2017-01-08 17:45 | disposition home or self-care (01) ==
LOC: NEPD 13:08
DX: G43.109 Migraine with aura, not intractable, without status migrainosus (principal)
CPT/HCPCS: 70450; 96361; 96365; 96375; 99285; J0780; J1100; J1200; J2765; J3475; J7030

== ENCOUNTER 2017-01-27 16:30 | Emergency (ER) | payer OTHER ==
[~2017-01-27] VITALS: Ht 160 cm; Wt 90.5 kg
[~2017-01-27 16:30] MED LIST changes: +AMBI10TA PO; -CIPR-9 PO; +LYRI50CA PO; -MSIR15 PO; -PANT20 PO; +PANT40TA3 PO; -PRED20 PO; -PREG25 PO
[2017-01-27 16:33] VITALS: BP 140/93; PULSE 84; RESP 16; TEMP 98.5; O2SAT 98
[2017-01-27] MEDS ORDERED: AMIT10TA6 PO (17:57)
[2017-01-27 17:59] VITALS: BP 158/95; PULSE 84; RESP 18; O2SAT 97
[2017-01-27 18:00] VITALS: BP 158/95; PULSE 85; RESP 18; O2SAT 98
[2017-01-27] MEDS ORDERED: ASPIRIN 81 MG CHEW TAB CHEW ONE (18:00)
[2017-01-27] MEDS ORDERED: ONDANSETRON HCL 4 MG/2 ML VIAL IV PUSH ONE (18:00)
[2017-01-27] MEDS ORDERED: RESP: LIDOCAINE HCL 4% PF 5 ML NEB NEB ONE (18:00)
[2017-01-27] MEDS ORDERED: SODIUM CHLORIDE 0.9% FLUSH 10 ML FLUSH IVF PRN (18:00)
[2017-01-27] MEDS ORDERED: methylPREDNISolone SOD SUCC 125 MG/2 ML VIAL IVP ONE (18:00)
[2017-01-27] MEDS ORDERED: MORPHINE SULFATE 4 MG/ML INJ IV PUSH ONE ×2 (18:00→19:15)
[2017-01-27] MEDS ORDERED: ALBU0.08 NEB (18:08)
[2017-01-27] MEDS ORDERED: PRED-503 PO (18:08)
[2017-01-27] MEDS: RESP: ALBUTEROL 2.5 MG/IPRATROPIUM 0.5 MG NEB (SCH) INH ×2 (18:09→18:11)
--- NOTE | 2017-01-27 18:09 | PD ---
HPI Chief Complaint: Chest Pain Time Seen by Provider: 17:50 Travel History International Travel<30 days: No Contact w/Intl Traveler<30days: No Traveled to known affect area: No History of Present Illness HPI The patient is a 46-year-old female who presents to the emergency department for 2 day history of chest pain and shortness of breath. The patient notes chest pressure for the last 2 days which is substernal, worse with inspiration and with activity. The patient also complains of chest tightness with audible wheezing. The patient has a history of asthma with similar symptoms and was admitted to the hospital in November 2016 with similar symptoms where she underwent VQ scan which was negative for pulmonary embolism. The patient has been using her nebulizers at home without any alleviation of her symptoms. The patient does have a history of hypertension and diabetes, denies any history of hyperlipidemia, tobacco use, coronary artery disease, or peripheral vascular disease. She does state her mother had heart disease in her 60s or 70s with a bypass. The patient's primary physician is Dr. Reddy. Symptoms are moderate, worse with coughing and inspiration, and minimally alleviated at rest. She does note a dry nonproductive cough which is chronic. She denies any known history of congestive heart failure. The patient also complains of a moderate bitemporal headache secondary to coughing. PFSH Past Medical History Hx Anticoagulant Therapy: Yes Asthma: Yes Autoimmune Disease: Yes (LUPUS) Blood Disorders: No Anxiety: Yes Depression: No Heart Rhythm Problems: No Cancer: No Cardiovascular Problems: Yes (htn) High Cholesterol: No Chest Pain: No Congestive Heart Failure: No COPD: No Cerebrovascular Accident: Yes (TIA) Diabetes: Yes Patient Takes Glucophage: No Diminished Hearing: No Fibromyalgia: Yes Gastrointestinal Disorders: Yes (GASTRITIS, GASTRPORESIS) GERD: Yes Genitourinary: No Hypertension: Yes Implanted Vascular Access Dvce: No Musculoskeletal: Yes (CARPAL TUNNEL) Neurologic: Yes (FIBROMYALGIA) Psychiatric: Yes Reproductive: No Respiratory: Yes (ASTHMA) Immunizations Current: Yes Sleep Apnea: No ?: Not LMP: NOW : 2 Para: 2 Miscarriage: 0 : 0 Past Surgical History Section: Yes (X2) Cholecystectomy: Yes Other Surgery: Yes (tendonitis - R. HAND) Social History Alcohol Use: No Tobacco Use: No Substance Use: No Allergies-Medications (Allergen,Severity, Reaction): Coded Allergies: iodine (Unverified Allergy, Severe, Anaphylaxis, 01/24/17) potassium iodide (Unverified Allergy, Severe, Anaphylaxis, 01/24/17) povidone-iodine (Unverified Allergy, Severe, Anaphylaxis, 01/24/17) shellfish derived (Unverified Allergy, Severe, Anaphylaxis, 01/24/17) sodium iodide (Unverified Allergy, Severe, Anaphylaxis, 01/24/17) sodium iodide (Unverified Allergy, Severe, Anaphylaxis, 01/24/17) theophylline (Unverified Allergy, Severe, Anaphylaxis, 01/24/17) aminophylline (Unverified Allergy, Intermediate, MAKES HER HYPER ELEVATES BP, 01/24/17) naproxen (Unverified Allergy, Intermediate, Rash, 01/24/17) penicillin G (Unverified Allergy, Intermediate, RASH, 01/24/17) azathioprine (Unverified Allergy, Unknown, 01/24/17) broccoli (Unverified Allergy, Unknown, 01/24/17) cephalexin (Unverified Allergy, Unknown, 01/24/17) diphenhydramine (Unverified Adverse Reaction, Mild, palpitations, 01/24/17) pushed too quickly ibuprofen (Unverified Adverse Reaction, Mild, LUPUS, 01/24/17) Uncoded Allergies: Eggplant (Allergy, Intermediate, 10/09/16) AMRNOHILSON (Adverse Reaction, Severe, 10/09/16) .. Reported Meds & Prescriptions Reported Meds & Active Scripts Active Albuterol Neb (Albuterol Sulfate) 2.5 Mg/3 Ml Neb 2.5 Mg NEB Q4HR NEB PRN Deltasone (Prednisone) 20 Mg Tab 40 Mg PO DAILY 4 Days Proair Hfa 8.5 GM Inh (Albuterol Sulfate) 90 Mcg/Act Aer 2 Puff INH Q4-6H PRN 108 mcg/actuation Haloperidol 5 Mg Tab 5 Mg PO Q4HR 30 Days Flovent Hfa 12 GM Inh (Fluticasone Propionate) 220 Mcg/Act Inh 2 Puff INH BID Use daily at the same time. Nebulizer 1 Mis Mis 1 Ea .ROUTE DIRECTED Reported Amitriptyline (Amitriptyline HCl) 10 Mg Tab 10 Mg PO HS Ambien (Zolpidem Tartrate) 10 Mg Tab 10 Mg PO HS Pantoprazole (Pantoprazole Sodium) 40 Mg Tab 40 Mg PO DAILY PRN Lyrica (Pregabalin) 50 Mg Cap 50 Mg PO TID Albuterol Neb (Albuterol Sulfate) 0.63 Mg/3 Ml Neb 0.63 Mg NEB Q6HR NEB PRN Metoclopramide (Metoclopramide HCl) 10 Mg Tab 10 Mg PO TIDAC Lisinopril 20 Mg Tab 20 Mg PO DAILY Chlorthalidone 25 Mg Tab 12.5 Mg PO DAILY Mobic (Meloxicam) 15 Mg Tab 15 Mg PO DAILY Metformin (Metformin HCl) 1,000 Mg Tab 1,000 Mg PO BIDPC PRN With meals Duloxetine DR (Duloxetine HCl) 20 Mg Capdr 20 Mg PO DAILY Review of Systems Except as stated in HPI: all other systems reviewed are Neg General / Constitutional: No: Fever HENT: No: Lightheadedness Cardiovascular: Positive: Chest Pain or Discomfort, Dyspnea on exertion, No: Diaphoresis Respiratory: Positive: Cough, Shortness of Breath, Wheezing Gastrointestinal: Positive: Nausea, No: Vomiting Musculoskeletal: No: Edema Physical Exam Narrative GENERAL: Awake, alert, nontoxic-appearing 46-year-old female who appears her stated age and is in no acute respiratory distress. SKIN: Focused skin assessment warm/dry. HEAD: Atraumatic. Normocephalic. EYES: No injection or drainage. ENT: No nasal bleeding or discharge. Mucous membranes pink and moist. NECK: Trachea midline. No JVD. CARDIOVASCULAR: Regular rate and rhythm. No murmur appreciated. Palpation of the sternum reproduces her symptoms. RESPIRATORY: No accessory muscle use. Prolonged expiratory phase with diffuse wheezing. GASTROINTESTINAL: Abdomen soft, non-tender, nondistended. MUSCULOSKELETAL: No obvious deformities. No clubbing. No cyanosis. No edema. NEUROLOGICAL: Awake and alert. No obvious cranial nerve deficits. Motor grossly within normal limits. Normal speech. PSYCHIATRIC: Appropriate mood and affect; insight and judgment normal. Data Data Last Documented VS Vital Signs Date Time Temp Pulse Resp B/P Pulse Ox O2 Delivery O2 Flow Rate FiO2 01/27/17 18:45 95 18 137/85 96 Room Air 01/27/17 18:00 2 01/27/17 16:33 98.5 Orders Electrocardiogram (01/27/17 ) Complete Blood Count With Diff (01/27/17 17:58) Comprehensive Metabolic Panel (01/27/17 17:58) B-Type Natriuretic Peptide (01/27/17 17:58) Magnesium (Mg) (01/27/17 17:58) Ckmb (Isoenzyme) Profile (01/27/17 17:58) Troponin I (01/27/17 17:58) Iv Access Insert/Monitor (01/27/17 17:58) Electrocardiogram (01/27/17 17:58) Ecg Monitoring (01/27/17 17:58) Oximetry (01/27/17 17:58) Oxygen Administration (01/27/17 17:58) Chest, Single Ap (01/27/17 17:58) Sodium Chloride 0.9% Flush (Ns Flush) (01/27/17 18:00) Methylprednisolone So Succ Inj (Solumedr (01/27/17 18:00) Albuterol-Ipratropium Neb (Duoneb Neb) (01/27/17 18:00) Lidocaine Pf 4% Neb (Lidocaine Pf 4% Neb (01/27/17 18:00) Aspirin Chew (Aspirin Chew) (01/27/17 18:00) Morphine Inj (Morphine Inj) (01/27/17 18:00) Ondansetron Inj (Zofran Inj) (01/27/17 18:00) Labs Laboratory Tests Test 01/27/17 18:02 White Blood Count 6.9 TH/MM3 Red Blood Count 4.52 MIL/MM3 Hemoglobin 9.5 GM/DL Hematocrit 30.0 % Mean Corpuscular Volume 66.2 FL Mean Corpuscular Hemoglobin 21.1 PG Mean Corpuscular Hemoglobin 31.8 % Concent Red Cell Distribution Width 19.5 % Platelet Count 151 TH/MM3 Mean Platelet Volume 10.0 FL Neutrophils (%) (Auto) 62.0 % Lymphocytes (%) (Auto) 28.5 % Monocytes (%) (Auto) 6.3 % Eosinophils (%) (Auto) 2.6 % Basophils (%) (Auto) 0.6 % Neutrophils # (Auto) 4.3 TH/MM3 Lymphocytes # (Auto) 2.0 TH/MM3 Monocytes # (Auto) 0.4 TH/MM3 Eosinophils # (Auto) 0.2 TH/MM3 Basophils # (Auto) 0.0 TH/MM3 CBC Comment AUTO DIFF Sodium Level 140 MEQ/L Potassium Level 3.7 MEQ/L Chloride Level 104 MEQ/L Carbon Dioxide Level 28.1 MEQ/L Anion Gap 8 MEQ/L Blood Urea Nitrogen 10 MG/DL Creatinine 0.82 MG/DL Estimat Glomerular Filtration 75 ML/MIN Rate Random Glucose 76 MG/DL Calcium Level 8.7 MG/DL Magnesium Level 2.2 MG/DL Total Bilirubin 0.2 MG/DL Aspartate Amino Transf 18 U/L (AST/SGOT) Alanine Aminotransferase 37 U/L (ALT/SGPT) Alkaline Phosphatase 89 U/L Total Creatine Kinase 92 U/L Troponin I LESS THAN 0.02 NG/ML Total Protein 7.7 GM/DL Albumin 3.7 GM/DL [facility] Medical Decision Making Medical Screen Exam Complete: Yes Emergency Medical Condition: Yes Medical Record Reviewed: Yes Interpretation(s) EKG reveals normal sinus rhythm with a rate 88. No ischemic changes or ectopy noted. Chest x-rays unremarkable Differential Diagnosis Differential diagnosis includes asthma exacerbation, bronchitis, congestive heart failure, cardiomyopathy, pleural effusion, pneumonia, acute coronary syndrome. Narrative Course IV was established, labs were drawn and sent, and the patient was placed on cardiac telemetry monitoring and continuous pulse oximetry monitoring. EKG was ordered and interpreted. The patient was administered aspirin, duo nebs, and Solu-Medrol intravenously. I reviewed the EMR, the patient had a VQ scan earlier this year which was unremarkable, no evidence of pulmonary embolism. Physical examination reveals wheezing with pleuritic chest pain and shortness of breath, most likely asthma exacerbation. However, patient does have a history of hypertension and diabetes, we'll send troponin to lab, EKG is unremarkable. Chest x-rays unremarkable. Troponin is negative. The patient was reassessed, wheezing had improved, she still complains of substernal pain is worse with coughing and palpation. The patient appears to have costochondritis exacerbated by her asthma. She will be placed on pain medications. She does note a history of similar symptoms in the past which she tripped is to her fibromyalgia and lupus. The patient will be discharged home and is advised to follow-up with her primary physician. Return if symptoms worsen or progress. Diagnosis Primary Impression: Acute asthma exacerbation Qualified Code: J45.901 - Asthma with acute exacerbation, unspecified asthma severity Additional Impressions: Atypical chest pain Cephalgia Qualified Code: R51 - Acute nonintractable headache, unspecified headache type Patient Instructions: General Instructions Additional Instructions: Medications as directed. Follow-up with your primary physician. Return if symptoms worsen or progress. Please provide the patient a copy of her x-ray results and lab results at discharge. Med/Other Pt SpecificInfo: No Change to Meds Scripts Hydrocodone-Acetaminophen (Lonepine)5-325 mg Tab1 Tab PO Q6H PRN (PAIN) #20 TAB Ref 0 Prov:Cosme Alfredo MD 01/27/17 Albuterol Neb 2.5 Mg/3 Ml Neb2.5 Mg NEB Q4HR NEB PRN (SHORTNESS OF BREATH) #60 NEBULE Ref 0 Prov:Cosme Alfredo MD 01/27/17 Prednisone (Deltasone)20 Mg Tab40 Mg PO DAILY 4 Days Ref 0 Prov:Cosme Alfredo MD 01/27/17 Disposition: 01 DISCHARGE HOME Condition: Stable Cosme Alfredo MD Jan 27, 2017 18:09
[2017-01-27 18:28] LABS: AUTOMATED NEUTROPHIL # 4.3 TH/MM3 (1.8-7.7); BASOPHIL % 0.6 % (0.0-2.0); EOSINOPHIL # 0.2 TH/MM3 (0-0.4); EOSINOPHIL % 2.6 % (0.0-4.0); LYMPH % 28.5 % (9.0-44.0); MEAN CELL VOLUME 66.2 FL (80.0-100.0); MEAN CORPUSCULAR HEMOGLOBIN 21.1 PG (27.0-34.0); MEAN CORPUSCULAR HGB CONC 31.8 % (32.0-36.0); MONO % 6.3 % (0.0-8.0); PLATELET COUNT 151 TH/MM3 (150-450); RED BLOOD COUNT 4.52 MIL/MM3 (4.00-5.30); RED CELL DISTRIBUTION WIDTH 19.5 % (11.6-17.2); WHITE BLOOD COUNT 6.9 TH/MM3 (4.0-11.0)
[2017-01-27 18:43] LABS: ALT (GPT) 37 U/L (10-53); ANION GAP 8 MEQ/L (5-15); AST (GOT) 18 U/L (15-37); BICARBONATE 28.1 MEQ/L (21.0-32.0); BLOOD UREA NITROGEN 10 MG/DL (7-18); CHLORIDE 104 MEQ/L (98-107); GLOMERULAR FILTRATION RATE 75 ML/MIN (>89); HEMO FLAGS AUTO DIFF; MAGNESIUM 2.2 MG/DL (1.5-2.5); POTASSIUM 3.7 MEQ/L (3.5-5.1); SODIUM (NA) 140 MEQ/L (136-145)
[2017-01-27 18:45] VITALS: BP 137/85; PULSE 95; RESP 18; O2SAT 96
[2017-01-27 18:47] LABS: ALKALINE PHOSPHATASE 89 U/L (45-117); TOTAL BILIRUBIN ADULT 0.2 MG/DL (0.2-1.0)
[2017-01-27 18:49] LABS: CREATINE KINASE 92 U/L (26-192)
--- NOTE | 2017-01-27 18:50 | RADRPT ---
EXAM DATE/TIME: 01/27/2017 18:32 [facility] COMPARISON: CHEST SINGLE AP, December 07, 2016, 21:33. INDICATIONS : Shortness of breath. Hx of pneumonia, bronchitis. MEDICAL HISTORY : Cerebrovascular disease. Cardiovascular disease. Hypertension. Diabetes, lupus. SURGICAL HISTORY : None. ENCOUNTER: Initial ACUITY: 1 day PAIN SCORE: 0/10 LOCATION: Bilateral chest FINDINGS: A single view of the chest demonstrates the lungs to be symmetrically aerated without evidence of mas s, infiltrate or effusion. The cardiomediastinal contours are unremarkable. Osseous structures are intact. CONCLUSION: No evidence of acute cardiopulmonary disease. Shravan Luna MD on January 27, 2017 at 18:48 Board Certified Radiologist. This report was verified electronically.
[2017-01-27] MEDS ORDERED: NORC5TAB PO (19:06)
[2017-01-27 19:28] LABS: SCAN/DIFF AUTO DIFF CONFIRMED
[2017-01-27 19:43] VITALS: RESP 18
--- NOTE | 2017-01-28 16:16 | EKG ---
Date Performed: 01/27/2017 Time Performed: 17:04:27 PTAGE: 46 years EKG: Sinus rhythm NORMAL ECG PREVIOUS TRACING : 12/07/2016 21.07 Since previous tracing, no significant change noted DOCTOR: Bubba Hopson Interpretating Date/Time 01/28/2017 16:14:00
== END 2017-01-27 19:56 | disposition home or self-care (01) ==
LOC: NEPE 16:30
DX: J45.901 Unspecified asthma with (acute) exacerbation (principal); R07.89 Other chest pain; R51 Headache; K21.9 Gastro-esophageal reflux disease without esophagitis; M32.9 Systemic lupus erythematosus, unspecified
CPT/HCPCS: 71010; 80053; 82550; 83735; 83880; 84484; 85025; 93005; 94640; 94664; 96374; 96375; 96376; 99285; J2270; J2405; J2930

== ENCOUNTER 2017-02-17 12:28 | Emergency (ER) | payer OTHER ==
[~2017-02-17] VITALS: Ht 160 cm; Wt 90.0 kg
[~2017-02-17 12:28] MED LIST changes: +ALBU0.08 NEB; +AMIT10TA6 PO; +NORC5TAB PO; +PRED-503 PO
[2017-02-17 12:32] VITALS: BP 135/85; PULSE 104; RESP 20; TEMP 98.4; O2SAT 98
--- NOTE | 2017-02-17 12:57 | PD ---
HPI Chief Complaint: Respiratory Symptoms Time Seen by Provider: 12:44 Travel History International Travel<30 days: No Contact w/Intl Traveler<30days: No Traveled to known affect area: No History of Present Illness HPI The patient was seen and examined in the presence of the nurse. She complains of shortness of breath and chest pain. Pain is much worse when she coughs or presses on her chest. It's located in the low center sternum. She has history of asthma. She's been wheezing and short of breath. Has not tried a nebulizer today. Denies fever. She's had a chronic cough for last several months. Duration of shortness of breath this 2 days. Symptoms are severe. PFSH Past Medical History Hx Anticoagulant Therapy: Yes Asthma: Yes Autoimmune Disease: Yes (LUPUS) Blood Disorders: No Anxiety: Yes Depression: No Heart Rhythm Problems: No Cancer: No Cardiovascular Problems: Yes (htn) High Cholesterol: No Chest Pain: No Congestive Heart Failure: No COPD: No Cerebrovascular Accident: Yes (TIA) Diabetes: Yes Patient Takes Glucophage: Yes Diminished Hearing: No Fibromyalgia: Yes Gastrointestinal Disorders: Yes (GASTRITIS, GASTRPORESIS) GERD: Yes Genitourinary: No Hypertension: Yes Implanted Vascular Access Dvce: No Musculoskeletal: Yes (CARPAL TUNNEL) Neurologic: Yes (FIBROMYALGIA) Psychiatric: Yes Reproductive: No Respiratory: Yes (ASTHMA) Immunizations Current: Yes Sleep Apnea: No Tetanus Vaccination: < 5 Years ?: Not LMP: 01/20/17 : 2 Para: 2 Miscarriage: 0 : 0 Past Surgical History Section: Yes (X2) Cholecystectomy: Yes Other Surgery: Yes (tendonitis - R. HAND) Social History Alcohol Use: No Tobacco Use: No Substance Use: No Allergies-Medications (Allergen,Severity, Reaction): Coded Allergies: iodine (Unverified Allergy, Severe, Anaphylaxis, 02/17/17) potassium iodide (Unverified Allergy, Severe, Anaphylaxis, 02/17/17) povidone-iodine (Unverified Allergy, Severe, Anaphylaxis, 02/17/17) shellfish derived (Unverified Allergy, Severe, Anaphylaxis, 02/17/17) sodium iodide (Unverified Allergy, Severe, Anaphylaxis, 02/17/17) sodium iodide (Unverified Allergy, Severe, Anaphylaxis, 02/17/17) theophylline (Unverified Allergy, Severe, Anaphylaxis, 02/17/17) aminophylline (Unverified Allergy, Intermediate, MAKES HER HYPER ELEVATES BP, 02/17/17) naproxen (Unverified Allergy, Intermediate, Rash, 02/17/17) penicillin G (Unverified Allergy, Intermediate, RASH, 02/17/17) azathioprine (Unverified Allergy, Unknown, 02/17/17) broccoli (Unverified Allergy, Unknown, 02/17/17) cephalexin (Unverified Allergy, Unknown, 02/17/17) diphenhydramine (Unverified Adverse Reaction, Mild, palpitations, 02/17/17) pushed too quickly ibuprofen (Unverified Adverse Reaction, Mild, LUPUS, 02/17/17) Uncoded Allergies: Eggplant (Allergy, Intermediate, 10/09/16) AMRNOHILSON (Adverse Reaction, Severe, 10/09/16) .. Reported Meds & Prescriptions Reported Meds & Active Scripts Active Duoneb (Ipratropium-Albuterol Neb) 0.5-2.5 Mg/3 Ml Neb 1 Nebule INH Q8HR NEB Colace (Docusate Sodium) 100 Mg Capsule 100 Mg PO BID Tramadol (Tramadol HCl) 50 Mg Tab 50 Mg PO Q6H PRN Prednisone 20 Mg Tab 40 Mg PO DAILY Take 40 mg (2 tablets) daily for 5 days Albuterol Neb (Albuterol Sulfate) 2.5 Mg/3 Ml Neb 2.5 Mg NEB Q4HR NEB PRN Reported Amitriptyline (Amitriptyline HCl) 10 Mg Tab 10 Mg PO HS Ambien (Zolpidem Tartrate) 10 Mg Tab 10 Mg PO HS Pantoprazole (Pantoprazole Sodium) 40 Mg Tab 40 Mg PO DAILY PRN Lyrica (Pregabalin) 50 Mg Cap 50 Mg PO TID Albuterol Neb (Albuterol Sulfate) 0.63 Mg/3 Ml Neb 0.63 Mg NEB Q6HR NEB PRN Metoclopramide (Metoclopramide HCl) 10 Mg Tab 10 Mg PO TIDAC Lisinopril 20 Mg Tab 20 Mg PO DAILY Chlorthalidone 25 Mg Tab 12.5 Mg PO DAILY Mobic (Meloxicam) 15 Mg Tab 15 Mg PO DAILY Metformin (Metformin HCl) 1,000 Mg Tab 1,000 Mg PO BIDPC PRN With meals Duloxetine DR (Duloxetine HCl) 20 Mg Capdr 20 Mg PO DAILY Review of Systems General / Constitutional: No: Fever Eyes: No: Visual changes HENT: No: Headaches Cardiovascular: Positive: Chest Pain or Discomfort Respiratory: Positive: Cough, Shortness of Breath, Wheezing Gastrointestinal: No: Abdominal Pain Genitourinary: No: Dysuria Musculoskeletal: No: Pain Skin: No Rash Neurologic: No: Weakness Psychiatric: No: Depression Endocrine: No: Polydipsia Hematologic/Lymphatic: No: Easy Bruising Physical Exam Narrative GENERAL: Well-nourished, well-developed patient who is short of breath SKIN: Focused skin assessment reveals no rash and nodules. Skin is Warm and dry. HEAD: Atraumatic. Normocephalic. EYES: Pupils equal and round. No scleral icterus. No injection or drainage. ENT: No nasal bleeding or discharge. Mucous membranes pink and moist. NECK: Trachea midline. No JVD. CARDIOVASCULAR: Regular rate and rhythm. No murmur appreciated. RESPIRATORY: Positive accessory muscle use. Diminished breath sounds throughout with some expiratory wheeze. No stridor. Breath sounds equal bilaterally. GASTROINTESTINAL: Abdomen soft, non-tender, nondistended. Hepatic and splenic margins not palpable. MUSCULOSKELETAL: No obvious deformities. No clubbing. No cyanosis. No edema. Prominent readily reproducible chest wall tenderness in the low center sternum NEUROLOGICAL: Awake and alert. No obvious cranial nerve deficits. Motor grossly within normal limits. Normal speech. PSYCHIATRIC: Appropriate mood and affect; insight and judgment normal. Data Data Last Documented VS Vital Signs Date Time Temp Pulse Resp B/P (MAP) Pulse Ox O2 Delivery O2 Flow Rate FiO2 02/17/17 13:01 99 Room Air 02/17/17 12:32 98.4 104 20 Orders Orders Oximetry (02/17/17 12:51) Chest, Single Ap (02/17/17 12:51) Methylprednisolone So Succ Inj (Solumedr (02/17/17 13:00) Albuterol-Ipratropium Neb (Duoneb Neb) (02/17/17 13:00) Oxycodone-Acetamin 5-325 Mg (Percocet (02/17/17 13:15) MDM Medical Decision Making Medical Screen Exam Complete: Yes Emergency Medical Condition: Yes Medical Record Reviewed: Yes Differential Diagnosis Differential diagnosis includes COPD, asthma, pneumonia, bronchitis, PE. Narrative Course I have reviewed the patient's electronic medical record. Patient is a frequent visitor for asthma I gave her series of 3 nebulizer treatments Gave her injection of Solu-Medrol I reviewed her chest x-ray which is normal Gave HER-2 pain pills Her chest pain is clearly musculoskeletal and will not require inpatient evaluation. On recheck after nebulizers she is breathing better Saturation is 99% on room air I wrote her 5 days of prednisone as well is nebulizer refill and some tramadol for chest wall pain and Colace Diagnosis Primary Impression: Acute asthma exacerbation Qualified Codes: J45.901 - Unspecified asthma with (acute) exacerbation Additional Impression: Chest wall pain Additional Instructions: The patient was advised to follow up with their physician and return if they worsen. The patient was warned about potential sedation for the medications they will receive on prescription. Med/Other Pt SpecificInfo: Prescription(s) given Scripts Ipratropium-Albuterol Neb (Duoneb) 0.5-2.5 Mg/3 Ml Neb 1 NEBULE INH Q8HR NEB for Breathing Treatment, #90 NEBULE 0 Refills Prov: Jaitnder Candelaria MD 02/17/17 Docusate Sodium (Colace) 100 Mg Capsule 100 MG PO BID, #20 Prov: Jatinder Candelaria MD 02/17/17 Tramadol (Tramadol) 50 Mg Tab 50 MG PO Q6H Y for PAIN, #15 TAB 0 Refills Prov: Jatinder Candelaria MD 02/17/17 Prednisone (Prednisone) 20 Mg Tab 40 MG PO DAILY, #10 TAB 0 Refills Take 40 mg (2 tablets) daily for 5 days Prov: Jatinder Candelaria MD 02/17/17 Disposition: 01 DISCHARGE HOME Condition: Stable Jatinder Candelaria MD Feb 17, 2017 12:57
[2017-02-17] MEDS ORDERED: methylPREDNISolone SOD SUCC 125 MG/2 ML VIAL IM ONE (13:00)
[2017-02-17 13:01] VITALS: O2SAT 99
[2017-02-17] MEDS: RESP: ALBUTEROL 2.5 MG/IPRATROPIUM 0.5 MG NEB (SCH) INH ×2 (13:05→13:06)
[2017-02-17] MEDS ORDERED: oxyCODONE/ACETAMINOPHEN 5 MG/325 MG TAB PO ONE (13:15)
--- NOTE | 2017-02-17 14:05 | RADRPT ---
EXAM DATE/TIME: 02/17/2017 13:25 [facility] COMPARISON: CHEST SINGLE AP, January 27, 2017, 18:32. INDICATIONS : Short of breath. MEDICAL HISTORY : Cerebrovascular disease. Cardiovascular disease. Hypertension. Diabetes, lupus. SURGICAL HISTORY : Cholecystectomy. ENCOUNTER: Initial ACUITY: 1 day PAIN SCORE: 0/10 LOCATION: Bilateral chest FINDINGS: The lungs are clear without infiltrate, nodule, or mass. There is no appreciable pleural effusion fo r technique. Heart and mediastinum are unremarkable. There is chronic tendinitis involving the left rotator cuff. CONCLUSION: No acute cardiopulmonary disease. Penelope Feng MD on February 17, 2017 at 14:03 Board Certified Radiologist. This report was verified electronically.
[2017-02-17] MEDS ORDERED: COLA100C PO (14:49)
[2017-02-17] MEDS ORDERED: TRAM50TA PO (14:49)
[2017-02-17] MEDS ORDERED: IPRASOL INH (14:49)
[2017-02-17] MEDS ORDERED: PRED20 PO (14:49)
[2017-02-17 14:52] VITALS: BP 132/86
== END 2017-02-17 14:55 | disposition home or self-care (01) ==
LOC: NEPD 12:28
DX: J45.901 Unspecified asthma with (acute) exacerbation (principal)
CPT/HCPCS: 71010; 94640; 94664; 96372; 99285; J2930

== ENCOUNTER 2017-02-20 13:04 | Emergency (ER) | payer OTHER ==
[~2017-02-20] VITALS: Ht 160 cm; Wt 90.0 kg
[~2017-02-20 13:04] MED LIST changes: -ALBUAER3 INH; +COLA100C PO; -FLUTI220I INH; -HALO5TAB PO; +IPRASOL INH; -NEBULIZER1 MI1; -NORC5TAB PO; -PRED-503 PO; +PRED20 PO; +TRAM50TA PO
[2017-02-20 13:10] VITALS: BP 149/96; TEMP 98
[2017-02-20] MEDS ORDERED: diphenhydrAMINE HCL 50 MG/ML VIAL IV PUSH ONE (13:45)
[2017-02-20] MEDS ORDERED: LORazepam 2 MG/ML VIAL IV PUSH ONE (13:45)
[2017-02-20] MEDS ORDERED: SODIUM CHLOR 0.9% 1000 ML INJ 1,000 ML IV ONE (13:45)
[2017-02-20] MEDS ORDERED: ONDANSETRON HCL 4 MG/2 ML VIAL IVP ONE (13:45)
[2017-02-20] MEDS ORDERED: METOCLOPRAMIDE HCL 10 MG/2 ML VIAL IV PUSH ONE (13:45)
[2017-02-20] MEDS ORDERED: SODIUM CHLORIDE 0.9% FLUSH 10 ML FLUSH IV FLUSH PRN (13:45)
--- NOTE | 2017-02-20 13:52 | PD ---
HPI Chief Complaint: Abdominal Pain Time Seen by Provider: 13:30 Travel History International Travel<30 days: No Contact w/Intl Traveler<30days: No Traveled to known affect area: No History of Present Illness HPI The patient was seen and examined in the presence of the nurse. This patient complains of abdominal pain. She has chronic abdominal pain she reports from gastroparesis. She is a frequent visitor for that problem. She's had extensive workup earlier this year including GI consultation and nuclear medicine gastric emptying scan and CAT scan and endoscopy etc. She has no gallbladder. She denies fever. Severity is moderate. Duration one day. No alleviating factors PFSH Past Medical History Hx Anticoagulant Therapy: Yes Asthma: Yes Autoimmune Disease: Yes (LUPUS) Blood Disorders: No Anxiety: Yes Depression: No Heart Rhythm Problems: No Cancer: No Cardiovascular Problems: Yes (htn) High Cholesterol: No Chest Pain: No Congestive Heart Failure: No COPD: No Cerebrovascular Accident: Yes (TIA) Diabetes: Yes Patient Takes Glucophage: Yes Diminished Hearing: No Fibromyalgia: Yes Gastrointestinal Disorders: Yes (GASTRITIS, GASTRPORESIS) GERD: Yes Genitourinary: No Hypertension: Yes Implanted Vascular Access Dvce: No Musculoskeletal: Yes (CARPAL TUNNEL) Neurologic: Yes (FIBROMYALGIA) Psychiatric: Yes Reproductive: No Respiratory: Yes (ASTHMA) Immunizations Current: Yes Sleep Apnea: No ?: Not LMP: 02/20/17 : 2 Para: 2 Miscarriage: 0 : 0 Past Surgical History Section: Yes (X2) Cholecystectomy: Yes Other Surgery: Yes (tendonitis - R. HAND) Social History Alcohol Use: No Tobacco Use: No Substance Use: No Allergies-Medications (Allergen,Severity, Reaction): Coded Allergies: iodine (Unverified Allergy, Severe, Anaphylaxis, 02/20/17) potassium iodide (Unverified Allergy, Severe, Anaphylaxis, 02/20/17) povidone-iodine (Unverified Allergy, Severe, Anaphylaxis, 02/20/17) shellfish derived (Unverified Allergy, Severe, Anaphylaxis, 02/20/17) sodium iodide (Unverified Allergy, Severe, Anaphylaxis, 02/20/17) sodium iodide (Unverified Allergy, Severe, Anaphylaxis, 02/20/17) theophylline (Unverified Allergy, Severe, Anaphylaxis, 02/20/17) aminophylline (Unverified Allergy, Intermediate, MAKES HER HYPER ELEVATES BP, 02/20/17) naproxen (Unverified Allergy, Intermediate, Rash, 02/20/17) penicillin G (Unverified Allergy, Intermediate, RASH, 02/20/17) azathioprine (Unverified Allergy, Unknown, 02/20/17) broccoli (Unverified Allergy, Unknown, 02/20/17) cephalexin (Unverified Allergy, Unknown, 02/20/17) diphenhydramine (Unverified Adverse Reaction, Mild, palpitations, 02/20/17) pushed too quickly ibuprofen (Unverified Adverse Reaction, Mild, LUPUS, 02/20/17) Uncoded Allergies: Eggplant (Allergy, Intermediate, 10/09/16) AMRNOHILSON (Adverse Reaction, Severe, 10/09/16) .. Reported Meds & Prescriptions Reported Meds & Active Scripts Active Duoneb (Ipratropium-Albuterol Neb) 0.5-2.5 Mg/3 Ml Neb 1 Nebule INH Q8HR NEB Colace (Docusate Sodium) 100 Mg Capsule 100 Mg PO BID Tramadol (Tramadol HCl) 50 Mg Tab 50 Mg PO Q6H PRN Prednisone 20 Mg Tab 40 Mg PO DAILY Take 40 mg (2 tablets) daily for 5 days Albuterol Neb (Albuterol Sulfate) 2.5 Mg/3 Ml Neb 2.5 Mg NEB Q4HR NEB PRN Reported Amitriptyline (Amitriptyline HCl) 10 Mg Tab 10 Mg PO HS Ambien (Zolpidem Tartrate) 10 Mg Tab 10 Mg PO HS Pantoprazole (Pantoprazole Sodium) 40 Mg Tab 40 Mg PO DAILY PRN Lyrica (Pregabalin) 50 Mg Cap 50 Mg PO TID Albuterol Neb (Albuterol Sulfate) 0.63 Mg/3 Ml Neb 0.63 Mg NEB Q6HR NEB PRN Metoclopramide (Metoclopramide HCl) 10 Mg Tab 10 Mg PO TIDAC Lisinopril 20 Mg Tab 20 Mg PO DAILY Chlorthalidone 25 Mg Tab 12.5 Mg PO DAILY Mobic (Meloxicam) 15 Mg Tab 15 Mg PO DAILY Metformin (Metformin HCl) 1,000 Mg Tab 1,000 Mg PO BIDPC PRN With meals Duloxetine DR (Duloxetine HCl) 20 Mg Capdr 20 Mg PO DAILY Review of Systems General / Constitutional: No: Fever Eyes: No: Visual changes HENT: No: Headaches Cardiovascular: No: Chest Pain or Discomfort Respiratory: No: Shortness of Breath Gastrointestinal: Positive: Nausea, Vomiting, Diarrhea, Abdominal Pain Genitourinary: No: Dysuria Musculoskeletal: No: Pain Skin: No Rash Neurologic: No: Weakness Psychiatric: No: Depression Endocrine: No: Polydipsia Hematologic/Lymphatic: No: Easy Bruising Physical Exam Narrative GENERAL: Well-nourished, well-developed patient in no apparent distress. SKIN: Focused skin assessment reveals no rash and nodules. Skin is Warm and dry. HEAD: Atraumatic. Normocephalic. EYES: Pupils equal and round. No scleral icterus. No injection or drainage. ENT: No nasal bleeding or discharge. Mucous membranes pink and moist. NECK: Trachea midline. No JVD. CARDIOVASCULAR: Regular rate and rhythm. No murmur appreciated. RESPIRATORY: No accessory muscle use. Clear to auscultation. Breath sounds equal bilaterally. GASTROINTESTINAL: Abdomen soft, non-tender, nondistended. Hepatic and splenic margins not palpable. MUSCULOSKELETAL: No obvious deformities. No clubbing. No cyanosis. No edema. NEUROLOGICAL: Awake and alert. No obvious cranial nerve deficits. Motor grossly within normal limits. Normal speech. PSYCHIATRIC: Appropriate mood and affect; insight and judgment normal. Data Data Last Documented VS Vital Signs Date Time Temp Pulse Resp B/P (MAP) Pulse Ox O2 Delivery O2 Flow Rate FiO2 02/20/17 13:10 98.0 149/96 (113) Orders Orders Complete Blood Count With Diff (02/20/17 13:42) Comprehensive Metabolic Panel (02/20/17 13:42) Lipase (02/20/17 13:42) Iv Access Insert/Monitor (02/20/17 13:42) Ondansetron Inj (Zofran Inj) (02/20/17 13:45) Sodium Chloride 0.9% Flush (Ns Flush) (02/20/17 13:45) Sodium Chlor 0.9% 1000 Ml Inj (Ns 1000 M (02/20/17 13:45) Lorazepam Inj (Ativan Inj) (02/20/17 13:45) Diphenhydramine Inj (Benadryl Inj) (02/20/17 13:45) Metoclopramide Inj (Reglan Inj) (02/20/17 13:45) Labs Laboratory Tests Test 02/20/17 14:30 White Blood Count 9.1 TH/MM3 Red Blood Count 4.67 MIL/MM3 Hemoglobin 9.4 GM/DL Hematocrit 30.4 % Mean Corpuscular Volume 65.1 FL Mean Corpuscular Hemoglobin 20.0 PG Mean Corpuscular Hemoglobin Concent 30.7 % Red Cell Distribution Width 19.3 % Platelet Count 156 TH/MM3 Mean Platelet Volume 10.4 FL Neutrophils (%) (Auto) 72.0 % Lymphocytes (%) (Auto) 20.0 % Monocytes (%) (Auto) 5.8 % Eosinophils (%) (Auto) 1.6 % Basophils (%) (Auto) 0.6 % Neutrophils # (Auto) 6.6 TH/MM3 Lymphocytes # (Auto) 1.8 TH/MM3 Monocytes # (Auto) 0.5 TH/MM3 Eosinophils # (Auto) 0.1 TH/MM3 Basophils # (Auto) 0.1 TH/MM3 CBC Comment AUTO DIFF Differential Comment AUTO DIFF CONFIRMED Platelet Morphology Comment ENLARGED Blood Urea Nitrogen 14 MG/DL Creatinine 0.84 MG/DL Random Glucose 143 MG/DL Total Protein 7.7 GM/DL Albumin 3.9 GM/DL Calcium Level 8.5 MG/DL Alkaline Phosphatase 90 U/L Aspartate Amino Transf (AST/SGOT) 21 U/L Alanine Aminotransferase (ALT/SGPT) 41 U/L Total Bilirubin 0.4 MG/DL Sodium Level 137 MEQ/L Potassium Level 3.2 MEQ/L Chloride Level 101 MEQ/L Carbon Dioxide Level 27.8 MEQ/L Anion Gap 8 MEQ/L Estimat Glomerular Filtration Rate 73 ML/MIN Lipase 151 U/L [facility] Medical Decision Making Medical Screen Exam Complete: Yes Emergency Medical Condition: Yes Medical Record Reviewed: Yes Differential Diagnosis Gastroparesis exacerbation, colitis, ileus, narcotic withdrawal Narrative Course I have reviewed the patient's electronic medical record. She is a frequent visitor is noted. I reviewed her last GI consultation and workup which was extensive IV placed CBC showed no leukocytosis. There is some anemia. metabolic profile shows minor hypokalemia LFT's are normal lipase is normal I gave her 1 L of normal saline IV as well as IV Zofran and IV Reglan and IV Benadryl and IV Ativan Abdomen is soft and benign. This is a flare of a chronic problem. I don't see any emergent indication for imaging. I don't feel it's likely to be helpful. Location of her pain is epigastric, she has no gallbladder. She says she is gastroparesis it is taking daily morphine. She may have more narcotic ileus than gastroparesis. Her gastric emptying study was only minimally abnormal. I recheck she looks clinically much better after medications I wrote her Zofran prescription She has Reglan at home I have advised her to discuss with her physician weaning off the morphine. I think this is a terrible long-term plan for her. Diagnosis Primary Impression: Abdominal pain Qualified Codes: R10.13 - Epigastric pain Additional Impression: Vomiting Qualified Codes: R11.2 - Nausea with vomiting, unspecified Additional Instructions: The patient was advised to follow up with their physician and return if they worsen. I have recommended clear liquids for 24 hours, then gradually advance as tolerated. Med/Other Pt SpecificInfo: Prescription(s) given Scripts Ondansetron (Zofran) 4 Mg Tab 4 MG PO Q6HR Y for NAUSEA OR VOMITING, #15 TAB 0 Refills Prov: Jatinder Candelaria MD 02/20/17 Disposition: 01 DISCHARGE HOME Condition: Stable Jatinder Candelaria MD Feb 20, 2017 13:52
[2017-02-20 14:47] LABS: AUTOMATED NEUTROPHIL # 6.6 TH/MM3 (1.8-7.7); BASOPHIL # 0.1 TH/MM3 (0-0.2); BASOPHIL % 0.6 % (0.0-2.0); EOSINOPHIL # 0.1 TH/MM3 (0-0.4); EOSINOPHIL % 1.6 % (0.0-4.0); HEMATOCRIT 30.4 % (35.0-46.0); LYMPHOCYTE # 1.8 TH/MM3 (1.0-4.8); MEAN CELL VOLUME 65.1 FL (80.0-100.0); MEAN CORPUSCULAR HGB CONC 30.7 % (32.0-36.0); MONO % 5.8 % (0.0-8.0); RED BLOOD COUNT 4.67 MIL/MM3 (4.00-5.30); RED CELL DISTRIBUTION WIDTH 19.3 % (11.6-17.2); WHITE BLOOD COUNT 9.1 TH/MM3 (4.0-11.0)
[2017-02-20 14:53] LABS: HEMO FLAGS AUTO DIFF
[2017-02-20 15:10] LABS: ALT (GPT) 41 U/L (10-53); ANION GAP 8 MEQ/L (5-15); AST (GOT) 21 U/L (15-37); BICARBONATE 27.8 MEQ/L (21.0-32.0); BLOOD UREA NITROGEN 14 MG/DL (7-18); CHLORIDE 101 MEQ/L (98-107); GLOMERULAR FILTRATION RATE 73 ML/MIN (>89); POTASSIUM 3.2 MEQ/L (3.5-5.1); SODIUM (NA) 137 MEQ/L (136-145)
[2017-02-20 15:11] LABS: ALKALINE PHOSPHATASE 90 U/L (45-117); TOTAL BILIRUBIN ADULT 0.4 MG/DL (0.2-1.0)
[2017-02-20 15:38] LABS: PLATELET COUNT 156 TH/MM3 (150-450); PLATELET MORPHOLOGY ENLARGED (NORMAL); SCAN/DIFF AUTO DIFF CONFIRMED
[2017-02-20] MEDS ORDERED: ZOFR4TAB PO (16:29)
== END 2017-02-20 18:01 | disposition home or self-care (01) ==
LOC: NEPD 13:04
DX: R10.13 Epigastric pain (principal); R11.2 Nausea with vomiting, unspecified; E11.43 Type 2 diabetes mellitus with diabetic autonomic (poly)neuropathy; K31.84 Gastroparesis; D64.9 Anemia, unspecified; M32.9 Systemic lupus erythematosus, unspecified; J45.909 Unspecified asthma, uncomplicated; I10 Essential (primary) hypertension; M79.7 Fibromyalgia
CPT/HCPCS: 80053; 83690; 85025; 96361; 96374; 96375; 99284; J1200; J2060; J2405; J2765; J7030

== ENCOUNTER 2017-03-13 22:14 | Emergency (ER) | payer OTHER ==
[~2017-03-13] VITALS: Ht 160 cm; Wt 95.0 kg
[~2017-03-13 22:14] MED LIST changes: +ZOFR4TAB PO
[2017-03-13 22:18] VITALS: BP 176/95; PULSE 118; RESP 28; TEMP 98.4; O2SAT 99
[2017-03-14 01:22] VITALS: BP 150/102; PULSE 94; RESP 28; O2SAT 100
[2017-03-14 01:24] VITALS: O2SAT 100
[2017-03-14] MEDS ORDERED: SODIUM CHLORIDE 0.9% FLUSH 10 ML FLUSH IVF PRN (01:30)
[2017-03-14] MEDS ORDERED: LORazepam 2 MG/ML VIAL IV PUSH ONE (01:30)
--- NOTE | 2017-03-14 01:35 | PD ---
HPI . Shortness of breath Chief Complaint: Respiratory Symptoms Time Seen by Provider: 01:30 Travel History International Travel<30 days: No Contact w/Intl Traveler<30days: No Traveled to known affect area: No History of Present Illness HPI This patient presents with a chief complaint of shortness of breath. Onset was today. She reports a history of asthma. She states that she has used her nebulizer machine at home once today and has used her MDI 5 or 6 times. She reports a dry cough. No fever. His shortness of breath is severe and that there are no modifying factors. PFSH Past Medical History Hx Anticoagulant Therapy: Yes Asthma: Yes Autoimmune Disease: Yes (LUPUS) Blood Disorders: No Anxiety: Yes Depression: No Heart Rhythm Problems: No Cancer: No Cardiovascular Problems: Yes (htn) High Cholesterol: No Chest Pain: No Congestive Heart Failure: No COPD: No Cerebrovascular Accident: Yes (TIA) Diabetes: Yes Patient Takes Glucophage: Yes (METFORMIN) Diminished Hearing: No Fibromyalgia: Yes Gastrointestinal Disorders: Yes (GASTRITIS, GASTRPORESIS) GERD: Yes Genitourinary: No Hypertension: Yes Implanted Vascular Access Dvce: No Musculoskeletal: Yes (CARPAL TUNNEL) Neurologic: Yes (FIBROMYALGIA) Psychiatric: Yes Reproductive: No Respiratory: Yes (ASTHMA) Immunizations Current: Yes Sleep Apnea: No ?: Unknown : 2 Para: 2 Miscarriage: 0 : 0 Past Surgical History Section: Yes (X2) Cholecystectomy: Yes Other Surgery: Yes (tendonitis - R. HAND) Social History Alcohol Use: No Tobacco Use: No Substance Use: No Allergies-Medications (Allergen,Severity, Reaction): Coded Allergies: iodine (Unverified Allergy, Severe, Anaphylaxis, 03/13/17) potassium iodide (Unverified Allergy, Severe, Anaphylaxis, 03/13/17) povidone-iodine (Unverified Allergy, Severe, Anaphylaxis, 03/13/17) shellfish derived (Unverified Allergy, Severe, Anaphylaxis, 03/13/17) sodium iodide (Unverified Allergy, Severe, Anaphylaxis, 03/13/17) sodium iodide (Unverified Allergy, Severe, Anaphylaxis, 03/13/17) theophylline (Unverified Allergy, Severe, Anaphylaxis, 03/13/17) aminophylline (Unverified Allergy, Intermediate, MAKES HER HYPER ELEVATES BP, 03/13/17) naproxen (Unverified Allergy, Intermediate, Rash, 03/13/17) penicillin G (Unverified Allergy, Intermediate, RASH, 03/13/17) azathioprine (Unverified Allergy, Unknown, 03/13/17) broccoli (Unverified Allergy, Unknown, 03/13/17) cephalexin (Unverified Allergy, Unknown, 03/13/17) diphenhydramine (Unverified Adverse Reaction, Mild, palpitations, 03/13/17) pushed too quickly ibuprofen (Unverified Adverse Reaction, Mild, LUPUS, 03/13/17) Uncoded Allergies: Eggplant (Allergy, Intermediate, 10/09/16) AMRNOHILSON (Adverse Reaction, Severe, 10/09/16) .. Reported Meds & Prescriptions Reported Meds & Active Scripts Active Zofran (Ondansetron HCl) 4 Mg Tab 4 Mg PO Q6HR PRN Duoneb (Ipratropium-Albuterol Neb) 0.5-2.5 Mg/3 Ml Neb 1 Nebule INH Q8HR NEB Colace (Docusate Sodium) 100 Mg Capsule 100 Mg PO BID Tramadol (Tramadol HCl) 50 Mg Tab 50 Mg PO Q6H PRN Prednisone 20 Mg Tab 40 Mg PO DAILY Take 40 mg (2 tablets) daily for 5 days Albuterol Neb (Albuterol Sulfate) 2.5 Mg/3 Ml Neb 2.5 Mg NEB Q4HR NEB PRN Reported Amitriptyline (Amitriptyline HCl) 10 Mg Tab 10 Mg PO HS Ambien (Zolpidem Tartrate) 10 Mg Tab 10 Mg PO HS Pantoprazole (Pantoprazole Sodium) 40 Mg Tab 40 Mg PO DAILY PRN Lyrica (Pregabalin) 50 Mg Cap 50 Mg PO TID Albuterol Neb (Albuterol Sulfate) 0.63 Mg/3 Ml Neb 0.63 Mg NEB Q6HR NEB PRN Metoclopramide (Metoclopramide HCl) 10 Mg Tab 10 Mg PO TIDAC Lisinopril 20 Mg Tab 20 Mg PO DAILY Chlorthalidone 25 Mg Tab 12.5 Mg PO DAILY Mobic (Meloxicam) 15 Mg Tab 15 Mg PO DAILY Metformin (Metformin HCl) 1,000 Mg Tab 1,000 Mg PO BIDPC PRN With meals Duloxetine DR (Duloxetine HCl) 20 Mg Capdr 20 Mg PO DAILY Review of Systems Except as stated in HPI: all other systems reviewed are Neg General / Constitutional: No: Fever, Chills Cardiovascular: Positive: Chest Pain or Discomfort Respiratory: Positive: Cough, Shortness of Breath Physical Exam Narrative GENERAL: Patient is extremely anxious appearing. SKIN: warm/dry. HEAD: Normocephalic. Atraumatic. EYES: Pupils equal and round. No scleral icterus. No injection or drainage. ENT: No nasal bleeding or discharge. Mucous membranes pink and moist. NECK: Trachea midline. Full range of motion without pain.. CARDIOVASCULAR: Regular rate and rhythm. Heart sounds are normal. RESPIRATORY: No accessory muscle use. Diffuse wheezing which is heard loudest over her throat. Sats are 100% on room air. She is hyperventilating until she starts talking. She is then able to speak in complete sentences without any respiratory difficulty. GASTROINTESTINAL: Abdomen soft. Nontender. Bowel sounds present. Nondistended. MUSCULOSKELETAL: No obvious deformities. NEUROLOGICAL: Awake and alert. No obvious cranial nerve deficits. Motor grossly within normal limits. Normal speech. PSYCHIATRIC: Appropriate mood and affect; insight and judgment normal. Data Data Last Documented VS Vital Signs Date Time Temp Pulse Resp B/P (MAP) Pulse Ox O2 Delivery O2 Flow Rate FiO2 03/14/17 01:24 100 21 03/14/17 01:22 94 28 150/102 (118) Room Air 03/13/17 22:18 98.4 Orders Orders Complete Blood Count With Diff (03/14/17 01:30) Basic Metabolic Panel (Bmp) (03/14/17 01:30) Iv Access Insert/Monitor (03/14/17 01:30) Electrocardiogram (03/14/17 01:30) Ecg Monitoring (03/14/17 01:30) Oximetry (03/14/17 01:30) Chest, Single Ap (03/14/17 01:30) Sodium Chloride 0.9% Flush (Ns Flush) (03/14/17 01:30) Lorazepam Inj (Ativan Inj) (03/14/17 01:30) Labs Laboratory Tests Test 03/14/17 01:30 White Blood Count 8.9 TH/MM3 Red Blood Count 5.09 MIL/MM3 Hemoglobin 10.2 GM/DL Hematocrit 32.5 % Mean Corpuscular Volume 63.8 FL Mean Corpuscular Hemoglobin 20.1 PG Mean Corpuscular Hemoglobin Concent 31.5 % Red Cell Distribution Width 19.4 % Platelet Count 204 TH/MM3 Mean Platelet Volume 10.4 FL Neutrophils (%) (Auto) 61.2 % Lymphocytes (%) (Auto) 26.6 % Monocytes (%) (Auto) 8.1 % Eosinophils (%) (Auto) 3.3 % Basophils (%) (Auto) 0.8 % Neutrophils # (Auto) 5.4 TH/MM3 Lymphocytes # (Auto) 2.4 TH/MM3 Monocytes # (Auto) 0.7 TH/MM3 Eosinophils # (Auto) 0.3 TH/MM3 Basophils # (Auto) 0.1 TH/MM3 CBC Comment AUTO DIFF Differential Comment AUTO DIFF CONFIRMED Platelet Estimate NORMAL Platelet Morphology Comment NORMAL Ovalocytes 1+ Acanthocytes OCC Keratocytes OCC Blood Urea Nitrogen 15 MG/DL Creatinine 1.12 MG/DL Random Glucose 116 MG/DL Calcium Level 8.9 MG/DL Sodium Level 138 MEQ/L Potassium Level 3.8 MEQ/L Chloride Level 103 MEQ/L Carbon Dioxide Level 27.5 MEQ/L Anion Gap 8 MEQ/L Estimat Glomerular Filtration Rate 53 ML/MIN MDM Medical Decision Making Medical Screen Exam Complete: Yes Emergency Medical Condition: Yes Differential Diagnosis Differential diagnosis of dyspnea includes but is not limited to congestive heart failure, pneumonia, wheezing, pneumothorax, pulmonary embolism Narrative Course This patient presents complaining with dyspnea. She reports of history of asthma. She is having "throat asthma." She is extremely anxious appearing. Her dyspnea will be treated with Ativan. CBC & BMP Diagram 03/14/17 01:30 Calcium Level 8.9 CXR>>No acute cardiopulmonary disease demonstrated. The patient was treated with Ativan. She is now resting comfortably. Diagnosis Primary Impression: Dyspnea Qualified Codes: R06.00 - Dyspnea, unspecified Disposition: DISCHARGE HOME Condition: Stable Lissette Tejada MD Mar 14, 2017 01:34
[2017-03-14 01:47] LABS: AUTOMATED NEUTROPHIL # 5.4 TH/MM3 (1.8-7.7); BASOPHIL # 0.1 TH/MM3 (0-0.2); BASOPHIL % 0.8 % (0.0-2.0); EOSINOPHIL # 0.3 TH/MM3 (0-0.4); EOSINOPHIL % 3.3 % (0.0-4.0); HEMATOCRIT 32.5 % (35.0-46.0); LYMPH % 26.6 % (9.0-44.0); LYMPHOCYTE # 2.4 TH/MM3 (1.0-4.8); MEAN CELL VOLUME 63.8 FL (80.0-100.0); MEAN CORPUSCULAR HEMOGLOBIN 20.1 PG (27.0-34.0); MEAN CORPUSCULAR HGB CONC 31.5 % (32.0-36.0); MONO % 8.1 % (0.0-8.0); NEUT % 61.2 % (16.0-70.0); PLATELET COUNT 204 TH/MM3 (150-450); RED BLOOD COUNT 5.09 MIL/MM3 (4.00-5.30); RED CELL DISTRIBUTION WIDTH 19.4 % (11.6-17.2); WHITE BLOOD COUNT 8.9 TH/MM3 (4.0-11.0)
[2017-03-14 02:01] LABS: HEMO FLAGS AUTO DIFF
[2017-03-14 02:18] LABS: BICARBONATE 27.5 MEQ/L (21.0-32.0); POTASSIUM 3.8 MEQ/L (3.5-5.1)
[2017-03-14 02:32] LABS: OVALOCYTES 1+ (NORMAL); PLATELET ESTIMATE SMEAR NORMAL (NORMAL); SCAN/DIFF AUTO DIFF CONFIRMED
[2017-03-14 02:33] LABS: ACANTHOCYTES OCC (NORMAL); KERATOCYTES OCC (NORMAL); PLATELET MORPHOLOGY NORMAL (NORMAL)
--- NOTE | 2017-03-14 02:34 | RADRPT ---
EXAM DATE/TIME: 03/14/2017 02:09 [facility] COMPARISON: CHEST SINGLE AP, February 17, 2017, 13:25. INDICATIONS : Shortness of breath. MEDICAL HISTORY : Cerebrovascular disease. Cardiovascular disease. Hypertension. Diabetes, SURGICAL HISTORY : Cholecystectomy. ENCOUNTER: Initial ACUITY: 1 day PAIN SCORE: 0/10 LOCATION: Bilateral chest FINDINGS: A single view of the chest demonstrates the lungs to be symmetrically aerated without evidence of mas s, infiltrate or effusion. The cardiomediastinal contours are unremarkable. Osseous structures are intact. CONCLUSION: No acute cardiopulmonary disease demonstrated. Shravan Luna MD on March 14, 2017 at 2:33 Board Certified Radiologist. This report was verified electronically.
[2017-03-14] MEDS ORDERED: IBUPROFEN 800 MG TAB PO ONE (04:30)
[2017-03-14 04:41] VITALS: BP 120/68
[2017-03-14] MEDS ORDERED: ACETAMINOPHEN 325 MG TAB PO ONE (04:45)
--- NOTE | 2017-03-14 16:41 | EKG ---
Date Performed: 03/14/2017 Time Performed: 01:33:34 PTAGE: 46 years EKG: Sinus rhythm WITH SHORT SC INTERVAL Compared to prior tracing no significant change BORDERLINE ECG PREVIOUS TRACING : 01/27/2017 17.04 DOCTOR: Kylee Washington Interpretating Date/Time 03/14/2017 16:38:03
== END 2017-03-14 04:42 | disposition home or self-care (01) ==
LOC: NEPE 22:14
DX: R06.00 Dyspnea, unspecified (principal); J45.909 Unspecified asthma, uncomplicated; R07.9 Chest pain, unspecified; R05 Cough; R06.02 Shortness of breath; M32.9 Systemic lupus erythematosus, unspecified; E11.9 Type 2 diabetes mellitus without complications; I10 Essential (primary) hypertension; M79.7 Fibromyalgia
CPT/HCPCS: 71010; 80048; 85025; 93005; 96374; 99285; J2060

== ENCOUNTER 2017-03-18 16:26 | Emergency (ER) | payer OTHER ==
[~2017-03-18] VITALS: Ht 160 cm; Wt 92.0 kg
[2017-03-18 16:37] VITALS: BP 145/87; PULSE 123; RESP 15; TEMP 99.3; O2SAT 95
[2017-03-18] MEDS ORDERED: KETOROLAC TROMETHAMINE 60 MG/2 ML (IM) VIAL IM ONE (17:15)
[2017-03-18] MEDS ORDERED: ORPHENADRINE INJ 60 MG/2 ML AMP IM ONE (17:15)
[2017-03-18] MEDS ORDERED: diphenhydrAMINE HCL 50 MG/ML VIAL IV PUSH STA (17:19)
--- NOTE | 2017-03-18 17:20 | PD ---
HPI Chief Complaint: Pain: Acute or Chronic Time Seen by Provider: 17:15 Travel History International Travel<30 days: No Contact w/Intl Traveler<30days: No Traveled to known affect area: No History of Present Illness HPI 46 year-old female with history of asthma, gastroparesis, hypertension, anxiety , diabetes, presents to the emergency department for evaluation of muscle spasms in the left posterior back. Patient states he started at 7 AM this morning and has been ongoing throughout the day. They're intermittently sharp and cramping. They do seem to relax on the road but this does not last long. She denies any chest or tightness. Her difficulty breathing. States that she continues to wheeze due to her asthma and is using her DuoNeb at home. Denies fever or chills. Denies abdominal pain, nausea, vomiting. She has no other symptoms to report. PFSH Past Medical History Hx Anticoagulant Therapy: Yes Asthma: Yes Autoimmune Disease: Yes (LUPUS) Blood Disorders: No Anxiety: Yes Depression: No Heart Rhythm Problems: No Cancer: No Cardiovascular Problems: Yes (htn) High Cholesterol: No Chest Pain: No Congestive Heart Failure: No COPD: No Cerebrovascular Accident: Yes (TIA) Diabetes: Yes Diminished Hearing: No Fibromyalgia: Yes Gastrointestinal Disorders: Yes (GASTRITIS, GASTRPORESIS) GERD: Yes Genitourinary: No Hypertension: Yes Implanted Vascular Access Dvce: No Musculoskeletal: Yes (CARPAL TUNNEL) Neurologic: Yes (FIBROMYALGIA) Psychiatric: Yes Reproductive: No Respiratory: Yes (ASTHMA) Immunizations Current: Yes Sleep Apnea: No ?: Not LMP: 02/20/17 : 2 Para: 2 Miscarriage: 0 : 0 Past Surgical History Section: Yes (X2) Cholecystectomy: Yes Other Surgery: Yes (tendonitis - R. HAND) Social History Alcohol Use: No Tobacco Use: No Substance Use: No Allergies-Medications (Allergen,Severity, Reaction): Coded Allergies: iodine (Unverified Allergy, Severe, Anaphylaxis, 03/13/17) potassium iodide (Unverified Allergy, Severe, Anaphylaxis, 03/13/17) povidone-iodine (Unverified Allergy, Severe, Anaphylaxis, 03/13/17) shellfish derived (Unverified Allergy, Severe, Anaphylaxis, 03/13/17) sodium iodide (Unverified Allergy, Severe, Anaphylaxis, 03/13/17) sodium iodide (Unverified Allergy, Severe, Anaphylaxis, 03/13/17) theophylline (Unverified Allergy, Severe, Anaphylaxis, 03/13/17) aminophylline (Unverified Allergy, Intermediate, MAKES HER HYPER ELEVATES BP, 03/13/17) naproxen (Unverified Allergy, Intermediate, Rash, 03/13/17) penicillin G (Unverified Allergy, Intermediate, RASH, 03/13/17) azathioprine (Unverified Allergy, Unknown, 03/13/17) broccoli (Unverified Allergy, Unknown, 03/13/17) cephalexin (Unverified Allergy, Unknown, 03/13/17) diphenhydramine (Unverified Adverse Reaction, Mild, palpitations, 03/13/17) pushed too quickly ibuprofen (Unverified Adverse Reaction, Mild, LUPUS, 03/13/17) Uncoded Allergies: Eggplant (Allergy, Intermediate, 10/09/16) AMRNOHILSON (Adverse Reaction, Severe, 10/09/16) .. Reported Meds & Prescriptions Reported Meds & Active Scripts Active Robaxin (Methocarbamol) 500 Mg Tab 500 Mg PO QID Zofran (Ondansetron HCl) 4 Mg Tab 4 Mg PO Q6HR PRN Duoneb (Ipratropium-Albuterol Neb) 0.5-2.5 Mg/3 Ml Neb 1 Nebule INH Q8HR NEB Colace (Docusate Sodium) 100 Mg Capsule 100 Mg PO BID Tramadol (Tramadol HCl) 50 Mg Tab 50 Mg PO Q6H PRN Prednisone 20 Mg Tab 40 Mg PO DAILY Take 40 mg (2 tablets) daily for 5 days Albuterol Neb (Albuterol Sulfate) 2.5 Mg/3 Ml Neb 2.5 Mg NEB Q4HR NEB PRN Reported Amitriptyline (Amitriptyline HCl) 10 Mg Tab 10 Mg PO HS Ambien (Zolpidem Tartrate) 10 Mg Tab 10 Mg PO HS Pantoprazole (Pantoprazole Sodium) 40 Mg Tab 40 Mg PO DAILY PRN Lyrica (Pregabalin) 50 Mg Cap 50 Mg PO TID Albuterol Neb (Albuterol Sulfate) 0.63 Mg/3 Ml Neb 0.63 Mg NEB Q6HR NEB PRN Metoclopramide (Metoclopramide HCl) 10 Mg Tab 10 Mg PO TIDAC Lisinopril 20 Mg Tab 20 Mg PO DAILY Chlorthalidone 25 Mg Tab 12.5 Mg PO DAILY Mobic (Meloxicam) 15 Mg Tab 15 Mg PO DAILY Metformin (Metformin HCl) 1,000 Mg Tab 1,000 Mg PO BIDPC PRN With meals Duloxetine DR (Duloxetine HCl) 20 Mg Capdr 20 Mg PO DAILY Review of Systems Except as stated in HPI: all other systems reviewed are Neg Physical Exam Narrative GENERAL: Well-nourished female patient, sitting up in bed, in no acute distress. SKIN: Focused skin assessment warm/dry. HEAD: Atraumatic. Normocephalic. EYES: Pupils equal and round. No scleral icterus. No injection or drainage. ENT: No nasal bleeding or discharge. Mucous membranes pink and moist. NECK: Trachea midline. No JVD. CARDIOVASCULAR: Tachycardic rate and rhythm. No murmur appreciated. RESPIRATORY: No accessory muscle use. Intermittent inspiratory and x-ray wheeze to auscultation. Breath sounds equal bilaterally. GASTROINTESTINAL: Abdomen soft, non-tender, nondistended. Hepatic and splenic margins not palpable. MUSCULOSKELETAL: No obvious deformities. No clubbing. No cyanosis. No edema. Tenderness elicited palpation of the thoracic paraspinous musculature on the left. No Spinal tenderness. NEUROLOGICAL: Awake and alert. No obvious cranial nerve deficits. Motor grossly within normal limits. Normal speech. Data Data Last Documented VS Vital Signs Date Time Temp Pulse Resp B/P (MAP) Pulse Ox O2 Delivery O2 Flow Rate FiO2 03/18/17 19:22 03/18/17 16:37 99.3 123 15 95 Orders Orders Ketorolac Inj (Toradol Inj) (03/18/17 17:15) Orphenadrine Inj (Norflex Inj) (03/18/17 17:15) Ketorolac Inj (Toradol Inj) (03/18/17 17:30) Sodium Chlor 0.9% 1000 Ml Inj (Ns 1000 M (03/18/17 17:30) Metoclopramide Inj (Reglan Inj) (03/18/17 17:30) Diphenhydramine Inj (Benadryl Inj) (03/18/17 17:19) Iv Access Insert/Monitor (03/18/17 17:19) [facility] Medical Decision Making Medical Screen Exam Complete: Yes Emergency Medical Condition: Yes Medical Record Reviewed: Yes Differential Diagnosis Muscle spasm versus discogenic pain versus radiculopathy versus anxiety Narrative Course 46 year-old female presents to emergency department for evaluation. Patient has tenderness list palpation of thoracic paraspinous musculature on the left. Patient is given Robaxin but then she tells me that her gastroparesis is causing her pain. I gave her additional Reglan and Benadryl. Patient was initially tachycardic when she came into the emergency department. Her heart rate did slow to 100 bpm. In review of her record, she is typically tachycardic when she come to emergency department. Patient has had extensive workups here in the emergency department and her most recent being 2 days ago. I have discussed the results of this with the patient again and encouraged follow-up with her primary care provider. Upon reassessment, patient does verbalize improvement in her symptoms. She'll be discharged home with left pleural accident. She is encouraged to return immediately with any acute worsening symptoms. 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
[2017-03-18] MEDS ORDERED: SODIUM CHLOR 0.9% 1000 ML INJ 1,000 ML IV ONE (17:30)
[2017-03-18] MEDS ORDERED: KETOROLAC TROMETHAMINE 30 MG/ML (IVP) VIAL IV PUSH ONE (17:30)
[2017-03-18] MEDS ORDERED: METOCLOPRAMIDE HCL 10 MG/2 ML VIAL IV PUSH ONE (17:30)
[2017-03-18] MEDS ORDERED: ROBA500T PO (18:41)
== END 2017-03-18 19:23 | disposition home or self-care (01) ==
LOC: NEPD 16:26
DX: M62.838 Other muscle spasm (principal); E11.43 Type 2 diabetes mellitus with diabetic autonomic (poly)neuropathy; K31.84 Gastroparesis; R00.0 Tachycardia, unspecified; Z79.84 Long term (current) use of oral hypoglycemic drugs
CPT/HCPCS: 96372; 96374; 96375; 99284; J1200; J1885; J2360; J2765; J7030

== ENCOUNTER 2017-03-28 18:09 | Emergency (ER) | payer OTHER ==
[~2017-03-28 18:09] MED LIST changes: +ROBA500T PO
[2017-03-28 18:16] VITALS: BP 175/103; PULSE 123; RESP 39; TEMP 99.7; O2SAT 99
[2017-03-28 18:38] VITALS: O2SAT 100
[2017-03-28] MEDS ORDERED: SODIUM CHLORIDE 0.9% FLUSH 10 ML FLUSH IVF PRN (18:45)
[2017-03-28] MEDS ORDERED: methylPREDNISolone SOD SUCC 125 MG/2 ML VIAL IV PUSH ONE (18:45)
[2017-03-28] MEDS ORDERED: LORazepam 2 MG/ML VIAL IV PUSH ONE (18:45)
--- NOTE | 2017-03-28 18:48 | PD ---
HPI Chief Complaint: Respiratory Distress Time Seen by Provider: 18:32 Travel History International Travel<30 days: No Contact w/Intl Traveler<30days: No Traveled to known affect area: No History of Present Illness HPI 46-year-old [place] female presents the emergency department with increasing cough, shortness of breath, wheezing, and anxiety. Patient has history of asthma with requirement for prednisone in the past. Patient states she has had a dry cough for partially for months but in the last several days she's gotten increased wheezing unrelieved by her nebulizer at home. Patient denies fever, chills, nausea, vomiting, or diarrhea. Patient has multiple allergies. Please see list. PFSH Past Medical History Hx Anticoagulant Therapy: Yes Asthma: Yes Autoimmune Disease: Yes (LUPUS) Blood Disorders: No Anxiety: Yes Depression: No Heart Rhythm Problems: No Cancer: No Cardiovascular Problems: Yes (htn) High Cholesterol: No Chest Pain: No Congestive Heart Failure: No COPD: No Cerebrovascular Accident: Yes (TIA) Diabetes: Yes Patient Takes Glucophage: Yes Diminished Hearing: No Fibromyalgia: Yes Gastrointestinal Disorders: Yes (GASTRITIS, GASTRPORESIS) GERD: Yes Genitourinary: No Hypertension: Yes Implanted Vascular Access Dvce: No Musculoskeletal: Yes (CARPAL TUNNEL) Neurologic: Yes (FIBROMYALGIA) Psychiatric: Yes Reproductive: No Respiratory: Yes (ASTHMA) Immunizations Current: Yes Sleep Apnea: No Tetanus Vaccination: < 5 Years ?: Not : 2 Para: 2 Miscarriage: 0 : 0 Past Surgical History Section: Yes (X2) Cholecystectomy: Yes Other Surgery: Yes (tendonitis - R. HAND) Social History Alcohol Use: No Tobacco Use: No Substance Use: No Allergies-Medications (Allergen,Severity, Reaction): Coded Allergies: iodine (Unverified Allergy, Severe, Anaphylaxis, 03/13/17) potassium iodide (Unverified Allergy, Severe, Anaphylaxis, 03/13/17) povidone-iodine (Unverified Allergy, Severe, Anaphylaxis, 03/13/17) shellfish derived (Unverified Allergy, Severe, Anaphylaxis, 03/13/17) sodium iodide (Unverified Allergy, Severe, Anaphylaxis, 03/13/17) sodium iodide (Unverified Allergy, Severe, Anaphylaxis, 03/13/17) theophylline (Unverified Allergy, Severe, Anaphylaxis, 03/13/17) aminophylline (Unverified Allergy, Intermediate, MAKES HER HYPER ELEVATES BP, 03/13/17) naproxen (Unverified Allergy, Intermediate, Rash, 03/13/17) penicillin G (Unverified Allergy, Intermediate, RASH, 03/13/17) azathioprine (Unverified Allergy, Unknown, 03/13/17) broccoli (Unverified Allergy, Unknown, 03/13/17) cephalexin (Unverified Allergy, Unknown, 03/13/17) diphenhydramine (Unverified Adverse Reaction, Mild, palpitations, 03/13/17) pushed too quickly ibuprofen (Unverified Adverse Reaction, Mild, LUPUS, 03/13/17) Uncoded Allergies: Eggplant (Allergy, Intermediate, 10/09/16) AMRNOHILSON (Adverse Reaction, Severe, 10/09/16) .. Reported Meds & Prescriptions Reported Meds & Active Scripts Active Ventolin Hfa 18 GM Inh (Albuterol Sulfate) 90 Mcg/Act Aer 2 Puff INH Q4-6H PRN Azithromycin 500 Mg Tab 500 Mg PO DAILY Prednisone 20 Mg Tab 40 Mg PO DAILY Take 40 mg (2 tablets) daily for 5 days Albuterol Neb (Albuterol Sulfate) 2.5 Mg/3 Ml Neb 2.5 Mg NEB Q4HR NEB PRN Zofran (Ondansetron HCl) 4 Mg Tab 4 Mg PO Q6HR PRN Duoneb (Ipratropium-Albuterol Neb) 0.5-2.5 Mg/3 Ml Neb 1 Nebule INH Q8HR NEB Colace (Docusate Sodium) 100 Mg Capsule 100 Mg PO BID Tramadol (Tramadol HCl) 50 Mg Tab 50 Mg PO Q6H PRN Reported Amitriptyline (Amitriptyline HCl) 10 Mg Tab 10 Mg PO HS Ambien (Zolpidem Tartrate) 10 Mg Tab 10 Mg PO HS Pantoprazole (Pantoprazole Sodium) 40 Mg Tab 40 Mg PO DAILY PRN Lyrica (Pregabalin) 50 Mg Cap 50 Mg PO TID Metoclopramide (Metoclopramide HCl) 10 Mg Tab 10 Mg PO TIDAC Lisinopril 20 Mg Tab 20 Mg PO DAILY Chlorthalidone 25 Mg Tab 12.5 Mg PO DAILY Mobic (Meloxicam) 15 Mg Tab 15 Mg PO DAILY Metformin (Metformin HCl) 1,000 Mg Tab 1,000 Mg PO BIDPC PRN With meals Duloxetine DR (Duloxetine HCl) 20 Mg Capdr 20 Mg PO DAILY Review of Systems Except as stated in HPI: all other systems reviewed are Neg General / Constitutional: No: Fever, Chills Eyes: No: Visual changes HENT: Positive: Rhinitis, Rhinorrhea, Congestion, No: Headaches, Vertigo, Lightheadedness, Sore Throat, Nosebleed, Neck Stiffness, Neck Pain, Dental Difficulties, Ear Discharge, Earache Cardiovascular: No: Chest Pain or Discomfort Respiratory: Positive: Cough, Shortness of Breath, Wheezing, Orthopnea, No: Sneezing, Hemoptysis, Stridor, Night Sweats, Pleuritic Pain Gastrointestinal: No: Nausea, Vomiting, Diarrhea, Abdominal Pain Genitourinary: No: Dysuria Musculoskeletal: No: Pain Skin: No Rash Neurologic: No: Weakness Psychiatric: Positive: Anxiety, No: Depression Endocrine: No: Polydipsia Hematologic/Lymphatic: No: Easy Bruising Physical Exam Narrative GENERAL: Patient is obviously in moderate respiratory distress with tachypnea, cough, and wheezing. She is very anxious. She is noted to be satting 100%. She is slightly tachycardic at 10 6 bpm. SKIN: Warm and dry. Normal color. Normal turgor. No cyanosis. HEAD: Atraumatic. Normocephalic. EYES: Pupils equal and round. No scleral icterus. No injection or drainage. ENT: No nasal bleeding or discharge. Mucous membranes pink and moist. Pharynx is clear. Airway is patent. NECK: Trachea midline. Supple nontender. CARDIOVASCULAR: Tachycardic rate and normal rhythm. RESPIRATORY: No accessory muscle use. Diffuse wheezes throughout to auscultation. Breath sounds equal bilaterally. Patient is notably tachypneic GASTROINTESTINAL: Abdomen soft, non-tender, nondistended. Hepatic and splenic margins not palpable. MUSCULOSKELETAL: Extremities without clubbing, cyanosis, or edema. No obvious deformities. NEUROLOGICAL: Awake and alert. No obvious cranial nerve deficits. Motor grossly within normal limits. Five out of 5 muscle strength in the arms and legs. Normal speech. PSYCHIATRIC: Appropriate mood and affect; insight and judgment normal. Data Data Last Documented VS Vital Signs Date Time Temp Pulse Resp B/P (MAP) Pulse Ox O2 Delivery O2 Flow Rate FiO2 03/28/17 20:18 110 20 139/89 (106) 97 Nasal Cannula 2.00 03/28/17 18:16 99.7 Orders Orders Complete Blood Count With Diff (03/28/17 18:34) Comprehensive Metabolic Panel (03/28/17 18:34) Chest, Single Ap (03/28/17 18:34) Ecg Monitoring (03/28/17 18:34) Iv Access Insert/Monitor (03/28/17 18:34) Oximetry (03/28/17 18:34) Oxygen Administration (03/28/17 18:34) Methylprednisolone So Succ Inj (Solumedr (03/28/17 18:45) Albuterol-Ipratropium Neb (Duoneb Neb) (03/28/17 18:45) Sodium Chloride 0.9% Flush (Ns Flush) (03/28/17 18:45) Lorazepam Inj (Ativan Inj) (03/28/17 18:45) Azithromycin (Zithromax) (03/28/17 20:30) Labs Laboratory Tests Test 03/28/17 18:30 White Blood Count 8.2 TH/MM3 Red Blood Count 4.61 MIL/MM3 Hemoglobin 9.0 GM/DL Hematocrit 29.0 % Mean Corpuscular Volume 62.8 FL Mean Corpuscular Hemoglobin 19.5 PG Mean Corpuscular Hemoglobin Concent 31.0 % Red Cell Distribution Width 19.1 % Platelet Count 211 TH/MM3 Mean Platelet Volume 12.1 FL Neutrophils (%) (Auto) 59.6 % Lymphocytes (%) (Auto) 29.3 % Monocytes (%) (Auto) 7.8 % Eosinophils (%) (Auto) 2.6 % Basophils (%) (Auto) 0.7 % Neutrophils # (Auto) 4.9 TH/MM3 Lymphocytes # (Auto) 2.4 TH/MM3 Monocytes # (Auto) 0.6 TH/MM3 Eosinophils # (Auto) 0.2 TH/MM3 Basophils # (Auto) 0.1 TH/MM3 CBC Comment AUTO DIFF Differential Comment AUTO DIFF CONFIRMED Platelet Estimate NORMAL Platelet Morphology Comment ENLARGED Ovalocytes 1+ Blood Urea Nitrogen 8 MG/DL Creatinine 0.91 MG/DL Random Glucose 157 MG/DL Total Protein 7.9 GM/DL Albumin 3.8 GM/DL Calcium Level 8.9 MG/DL Alkaline Phosphatase 89 U/L Aspartate Amino Transf (AST/SGOT) 45 U/L Alanine Aminotransferase (ALT/SGPT) 63 U/L Total Bilirubin 0.3 MG/DL Sodium Level 139 MEQ/L Potassium Level 3.5 MEQ/L Chloride Level 104 MEQ/L Carbon Dioxide Level 24.0 MEQ/L Anion Gap 11 MEQ/L Estimat Glomerular Filtration Rate 67 ML/MIN MDM Medical Decision Making Medical Screen Exam Complete: Yes Emergency Medical Condition: Yes Medical Record Reviewed: Yes Differential Diagnosis Asthma with acute exacerbation. Wheezing. Cough. Pneumonia. Bronchitis. Anxiety. Narrative Course Patient is tachypneic but appears medically stable at time of exam CBC, CMP ordered. IV access is obtained patient is given 1 mg lorazepam, 125 mg Solu-Medrol IV, and 500 mL normal saline bolus. DuoNeb 3 is ordered. Chest x-ray is ordered. Chest x-ray shows no acute process per radiologist. CBC shows no significant leukocytosis the patient does have anemia with a hemoglobin of 9.0 which is typical for the patient. Chemistry shows slightly elevated glucose of 157, otherwise no significant findings. After the above treatments, the patient feels improved and is much more relaxed. She is no longer tachypneic Patient is given azithromycin 500 mg by mouth now. Patient is felt stable for discharge with continued prednisone 40 mg daily for 5 days. Patient is to restart Flovent 2 puffs twice a day. Patient is to continue her albuterol every 6 hours when necessary with nebulizer or metered-dose inhaler. Patient is continued on azithromycin 500 mg for 5 more days. Recommend patient follow with her primary care physician to ensure ongoing improvement. Suggest the patient may follow up with cardiac cath rn to ensure proper asthma control. Diagnosis Primary Impression: Acute asthma exacerbation Qualified Codes: J45.41 - Moderate persistent asthma with (acute) exacerbation Referrals: Primary Care Physician Medical Instructor Patient Instructions: Asthma (ED), General Instructions Additional Instructions: After the above treatments, the patient feels improved and is much more relaxed. She is no longer tachypneic Patient is given azithromycin 500 mg by mouth now. Patient is felt stable for discharge with continued prednisone 40 mg daily for 5 days. Patient is to restart Flovent 2 puffs twice a day. Patient is to continue her albuterol every 6 hours when necessary with nebulizer or metered-dose inhaler. Patient is continued on azithromycin 500 mg for 5 more days. Recommend patient follow with her primary care physician to ensure ongoing improvement. Suggest the patient may follow up with cardiac cath rn to ensure proper asthma control. Scripts Albuterol 18 GM Inh (Ventolin Hfa 18 GM Inh) 90 Mcg/Act Aer 2 PUFF INH Q4-6H Y for SHORTNESS OF BREATH, #1 INHALER 0 Refills Prov: Alba Leslie MD 03/28/17 Azithromycin (Azithromycin) 500 Mg Tab 500 MG PO DAILY for Infection, #5 TAB 0 Refills Prov: Alba Leslie MD 03/28/17 Prednisone (Prednisone) 20 Mg Tab 40 MG PO DAILY, #10 TAB 0 Refills Take 40 mg (2 tablets) daily for 5 days Prov: Alba Leslie MD 03/28/17 Albuterol Neb (Albuterol Neb) 2.5 Mg/3 Ml Neb 2.5 MG NEB Q4HR NEB Y for SHORTNESS OF BREATH, #60 NEBULE 0 Refills Prov: Alba Leslie MD 03/28/17 Disposition: 01 DISCHARGE HOME Condition: Stable Roland Mercado Mar 28, 2017 18:48
[2017-03-28 19:07] LABS: AUTOMATED NEUTROPHIL # 4.9 TH/MM3 (1.8-7.7); BASOPHIL # 0.1 TH/MM3 (0-0.2); BASOPHIL % 0.7 % (0.0-2.0); EOSINOPHIL # 0.2 TH/MM3 (0-0.4); EOSINOPHIL % 2.6 % (0.0-4.0); LYMPH % 29.3 % (9.0-44.0); LYMPHOCYTE # 2.4 TH/MM3 (1.0-4.8); MEAN CELL VOLUME 62.8 FL (80.0-100.0); MEAN CORPUSCULAR HEMOGLOBIN 19.5 PG (27.0-34.0); MONO % 7.8 % (0.0-8.0); NEUT % 59.6 % (16.0-70.0); PLATELET COUNT 211 TH/MM3 (150-450); RED BLOOD COUNT 4.61 MIL/MM3 (4.00-5.30); RED CELL DISTRIBUTION WIDTH 19.1 % (11.6-17.2); WHITE BLOOD COUNT 8.2 TH/MM3 (4.0-11.0)
[2017-03-28 19:08] LABS: HEMO FLAGS AUTO DIFF
--- NOTE | 2017-03-28 19:09 | RADRPT ---
EXAM DATE/TIME: 03/28/2017 18:49 [facility] COMPARISON: CHEST SINGLE AP, February 17, 2017, 13:25. INDICATIONS : Short of breath. MEDICAL HISTORY : Asthma. SURGICAL HISTORY : None. ENCOUNTER: Initial ACUITY: 1 day PAIN SCORE: 0/10 LOCATION: Bilateral chest FINDINGS: The lungs are clear without infiltrate, nodule, or mass. There is no appreciable pleural effusion fo r technique. Heart and mediastinum are unremarkable. CONCLUSION: No acute cardiopulmonary disease. Penelope Feng MD on March 28, 2017 at 19:07 Board Certified Radiologist. This report was verified electronically.
[2017-03-28 19:28] LABS: ANION GAP 11 MEQ/L (5-15); AST (GOT) 45 U/L (15-37); BLOOD UREA NITROGEN 8 MG/DL (7-18); CHLORIDE 104 MEQ/L (98-107); GLOMERULAR FILTRATION RATE 67 ML/MIN (>89); POTASSIUM 3.5 MEQ/L (3.5-5.1); SODIUM (NA) 139 MEQ/L (136-145)
[2017-03-28] MEDS: RESP: ALBUTEROL 2.5 MG/IPRATROPIUM 0.5 MG NEB (SCH) INH ×2 (19:28→19:29)
[2017-03-28 19:29] VITALS: O2SAT 99
[2017-03-28 19:29] LABS: ALT (GPT) 63 U/L (10-53)
[2017-03-28 19:31] LABS: ALKALINE PHOSPHATASE 89 U/L (45-117); TOTAL BILIRUBIN ADULT 0.3 MG/DL (0.2-1.0)
[2017-03-28 19:53] LABS: OVALOCYTES 1+ (NORMAL); SCAN/DIFF AUTO DIFF CONFIRMED
[2017-03-28 19:54] LABS: PLATELET ESTIMATE SMEAR NORMAL (NORMAL); PLATELET MORPHOLOGY ENLARGED (NORMAL)
[2017-03-28 20:18] VITALS: BP 139/89; PULSE 110; RESP 20; O2SAT 97
[2017-03-28] MEDS ORDERED: AZITHROMYCIN 250 MG TAB PO ONE (20:30)
[2017-03-28] MEDS ORDERED: ALBU0.08 NEB (20:32)
[2017-03-28] MEDS ORDERED: PRED20 PO (20:32)
[2017-03-28] MEDS ORDERED: VENTAER INH (20:32)
[2017-03-28] MEDS ORDERED: AZIT500T2 PO (20:32)
[2017-03-28] MEDS ORDERED: FLUTI220I INH (20:37)
== END 2017-03-28 21:10 | disposition home or self-care (01) ==
LOC: NEPC 18:09
DX: J45.41 Moderate persistent asthma with (acute) exacerbation (principal); E11.9 Type 2 diabetes mellitus without complications; I10 Essential (primary) hypertension; Z79.84 Long term (current) use of oral hypoglycemic drugs
CPT/HCPCS: 71010; 80053; 85025; 94640; 94664; 96374; 96375; 99284; J2060; J2930

== ENCOUNTER 2017-04-16 12:39 | Emergency (ER) | payer OTHER ==
[~2017-04-16] VITALS: Ht 160 cm; Wt 92.0 kg
[~2017-04-16 12:39] MED LIST changes: -ALBU0.63 NEB; +AZIT500T2 PO; -COLA100C PO; +COLA100C5 PO; +FLUTI220I INH; -ROBA500T PO; +VENTAER INH
[2017-04-16 12:40] VITALS: BP 141/78; PULSE 102; RESP 22; TEMP 97.8; O2SAT 100
[2017-04-16] MEDS ORDERED: ONDANSETRON HCL 4 MG/2 ML VIAL IVP ONE (13:15)
[2017-04-16] MEDS ORDERED: SODIUM CHLOR 0.9% 1000 ML INJ 1,000 ML IV SCH (13:15)
[2017-04-16] MEDS ORDERED: SODIUM CHLORIDE 0.9% FLUSH 10 ML FLUSH IV FLUSH PRN (13:15)
--- NOTE | 2017-04-16 13:24 | PD ---
HPI Chief Complaint: Abdominal Pain Time Seen by Provider: 12:54 Travel History International Travel<30 days: No Contact w/Intl Traveler<30days: No Traveled to known affect area: No History of Present Illness HPI Patient is a 46-year-old female with history of gastritis, gastroparesis, fibromyalgia, lupus, hypertension, TIA, diabetes, presents to the emergency room for evaluation of abdominal pain. Patient reports that she was at [employer] today sitting in the choir, reports that 30 minutes into singing, she began to have abdominal pain. Reports increased pains to her umbilicus as well as her right mid abdomen. Patient reports no nausea or vomiting with her symptoms, denies any constipation or diarrhea. Reports that symptoms are similar to when she was diagnosed with gastroparesis in the past. Patient reports that she has not follow-up with a tool design checker due to her insurance company changes. Reports no fevers or chills, reports that she has been having urinary urgency as well as frequency as well as dysuria. Patient denies any flank pain or hematuria. PFSH Past Medical History Hx Anticoagulant Therapy: Yes Asthma: Yes Autoimmune Disease: Yes (LUPUS) Blood Disorders: No Anxiety: Yes Depression: No Heart Rhythm Problems: No Cancer: No Cardiovascular Problems: Yes (htn) High Cholesterol: No Chest Pain: No Congestive Heart Failure: No COPD: No Cerebrovascular Accident: Yes (TIA) Diabetes: Yes Diminished Hearing: No Fibromyalgia: Yes Gastrointestinal Disorders: Yes (GASTRITIS, GASTRPORESIS) GERD: Yes Genitourinary: No Hypertension: Yes Implanted Vascular Access Dvce: No Musculoskeletal: Yes (CARPAL TUNNEL) Neurologic: Yes (FIBROMYALGIA) Psychiatric: Yes Reproductive: No Respiratory: Yes (ASTHMA) Immunizations Current: Yes Sleep Apnea: No ?: Not : 2 Para: 2 Miscarriage: 0 : 0 Past Surgical History Section: Yes (X2) Cholecystectomy: Yes Other Surgery: Yes (tendonitis - R. HAND) Social History Alcohol Use: No Tobacco Use: No Substance Use: No Allergies-Medications (Allergen,Severity, Reaction): Coded Allergies: iodine (Unverified Allergy, Severe, Anaphylaxis, 03/13/17) potassium iodide (Unverified Allergy, Severe, Anaphylaxis, 03/13/17) povidone-iodine (Unverified Allergy, Severe, Anaphylaxis, 03/13/17) shellfish derived (Unverified Allergy, Severe, Anaphylaxis, 03/13/17) sodium iodide (Unverified Allergy, Severe, Anaphylaxis, 03/13/17) sodium iodide (Unverified Allergy, Severe, Anaphylaxis, 03/13/17) theophylline (Unverified Allergy, Severe, Anaphylaxis, 03/13/17) aminophylline (Unverified Allergy, Intermediate, MAKES HER HYPER ELEVATES BP, 03/13/17) naproxen (Unverified Allergy, Intermediate, Rash, 03/13/17) penicillin G (Unverified Allergy, Intermediate, RASH, 03/13/17) azathioprine (Unverified Allergy, Unknown, 03/13/17) broccoli (Unverified Allergy, Unknown, 03/13/17) cephalexin (Unverified Allergy, Unknown, 03/13/17) diphenhydramine (Unverified Adverse Reaction, Mild, palpitations, 03/13/17) pushed too quickly ibuprofen (Unverified Adverse Reaction, Mild, LUPUS, 03/13/17) Uncoded Allergies: Eggplant (Allergy, Intermediate, 10/09/16) AMRNOHILSON (Adverse Reaction, Severe, 10/09/16) .. Reported Meds & Prescriptions Reported Meds & Active Scripts Active Flovent Hfa 12 GM Inh (Fluticasone Propionate) 220 Mcg/Act Inh 1 Puff INH BID Use daily at the same time. Ventolin Hfa 18 GM Inh (Albuterol Sulfate) 90 Mcg/Act Aer 2 Puff INH Q4-6H PRN Azithromycin 500 Mg Tab 500 Mg PO DAILY Albuterol Neb (Albuterol Sulfate) 2.5 Mg/3 Ml Neb 2.5 Mg NEB Q4HR NEB PRN Zofran (Ondansetron HCl) 4 Mg Tab 4 Mg PO Q6HR PRN Duoneb (Ipratropium-Albuterol Neb) 0.5-2.5 Mg/3 Ml Neb 1 Nebule INH Q8HR NEB Colace (Docusate Sodium) 100 Mg Capsule 100 Mg PO BID Tramadol (Tramadol HCl) 50 Mg Tab 50 Mg PO Q6H PRN Reported Amitriptyline (Amitriptyline HCl) 10 Mg Tab 10 Mg PO HS Ambien (Zolpidem Tartrate) 10 Mg Tab 10 Mg PO HS Pantoprazole (Pantoprazole Sodium) 40 Mg Tab 40 Mg PO DAILY PRN Lyrica (Pregabalin) 50 Mg Cap 50 Mg PO TID Metoclopramide (Metoclopramide HCl) 10 Mg Tab 10 Mg PO TIDAC Lisinopril 20 Mg Tab 20 Mg PO DAILY Chlorthalidone 25 Mg Tab 12.5 Mg PO DAILY Mobic (Meloxicam) 15 Mg Tab 15 Mg PO DAILY Metformin (Metformin HCl) 1,000 Mg Tab 1,000 Mg PO BIDPC PRN With meals Duloxetine DR (Duloxetine HCl) 20 Mg Capdr 20 Mg PO DAILY Review of Systems General / Constitutional: No: Fever, Chills Eyes: No: Visual changes HENT: No: Headaches Cardiovascular: No: Chest Pain or Discomfort Respiratory: No: Shortness of Breath Gastrointestinal: Positive: Abdominal Pain, No: Nausea, Vomiting, Diarrhea, Constipation Genitourinary: Positive: Urgency, Frequency, Dysuria, No: Hematuria, Hesitancy Musculoskeletal: No: Pain Skin: No Rash Neurologic: No: Weakness Psychiatric: No: Depression Endocrine: No: Polydipsia Hematologic/Lymphatic: No: Easy Bruising Physical Exam Narrative GENERAL: moderate distress SKIN: Focused skin assessment warm/dry. HEAD: Atraumatic. Normocephalic. EYES: Pupils equal and round. No scleral icterus. No injection or drainage. ENT: No nasal bleeding or discharge. Mucous membranes pink and moist. NECK: Trachea midline. No JVD. CARDIOVASCULAR: Regular rate and rhythm. No murmur appreciated. RESPIRATORY: No accessory muscle use. Clear to auscultation. Breath sounds equal bilaterally. GASTROINTESTINAL: Abdomen soft, diffusely tender, nondistended. Hepatic and splenic margins not palpable. MUSCULOSKELETAL: No obvious deformities. No clubbing. No cyanosis. No edema. NEUROLOGICAL: Awake and alert. No obvious cranial nerve deficits. Motor grossly within normal limits. Normal speech. PSYCHIATRIC: Anxious mood and affect Data Data Last Documented VS Vital Signs Date Time Temp Pulse Resp B/P (MAP) Pulse Ox O2 Delivery O2 Flow Rate FiO2 04/16/17 13:34 16 99 Room Air 04/16/17 12:40 97.8 102 Orders Orders Complete Blood Count With Diff (04/16/17 13:15) Comprehensive Metabolic Panel (04/16/17 13:15) Prothrombin Time / Inr (Pt) (04/16/17 13:15) Act Partial Throm Time (Ptt) (04/16/17 13:15) Urinalysis - C+S If Indicated (04/16/17 13:15) Iv Access Insert/Monitor (04/16/17 13:15) Ecg Monitoring (04/16/17 13:15) Oximetry (04/16/17 13:15) NPO (04/16/17 13:15) Ondansetron Inj (Zofran Inj) (04/16/17 13:15) Sodium Chlor 0.9% 1000 Ml Inj (Ns 1000 M (04/16/17 13:15) Sodium Chloride 0.9% Flush (Ns Flush) (04/16/17 13:15) Ed Urine Pregnancytest Poc (04/16/17 13:15) Haloperidol Inj (Haldol Inj) (04/16/17 13:30) Ct Abd/Pel W/O Iv Contrast (04/16/17 13:17) Labs Laboratory Tests Test 04/16/17 13:30 White Blood Count 9.0 TH/MM3 Red Blood Count 4.95 MIL/MM3 Hemoglobin 9.4 GM/DL Hematocrit 31.2 % Mean Corpuscular Volume 63.1 FL Mean Corpuscular Hemoglobin 19.1 PG Mean Corpuscular Hemoglobin Concent 30.2 % Red Cell Distribution Width 20.8 % Platelet Count 160 TH/MM3 Mean Platelet Volume 10.8 FL Neutrophils (%) (Auto) 61.1 % Lymphocytes (%) (Auto) 27.4 % Monocytes (%) (Auto) 6.7 % Eosinophils (%) (Auto) 3.9 % Basophils (%) (Auto) 0.9 % Neutrophils # (Auto) 5.5 TH/MM3 Lymphocytes # (Auto) 2.5 TH/MM3 Monocytes # (Auto) 0.6 TH/MM3 Eosinophils # (Auto) 0.4 TH/MM3 Basophils # (Auto) 0.1 TH/MM3 CBC Comment AUTO DIFF Differential Comment AUTO DIFF CONFIRMED Platelet Estimate NORMAL Platelet Morphology Comment ENLARGED Ovalocytes 1+ Prothrombin Time 10.2 SEC Prothromb Time International Ratio 0.9 RATIO Activated Partial Thromboplast Time 26.1 SEC Urine Color YELLOW Urine Turbidity HAZY Urine pH 6.0 Urine Specific [place] 1.009 Urine Protein NEG mg/dL Urine Glucose (UA) NEG mg/dL Urine Ketones NEG mg/dL Urine Occult Blood NEG Urine Nitrite NEG Urine Bilirubin NEG Urine Urobilinogen LESS THAN 2.0 MG/DL Urine Leukocyte Esterase MOD Urine RBC 3 /hpf Urine WBC 2 /hpf Urine Squamous Epithelial Cells 2 /hpf Urine Bacteria RARE /hpf Microscopic Urinalysis Comment CULT NOT INDICATED Blood Urea Nitrogen 9 MG/DL Creatinine 0.78 MG/DL Random Glucose 77 MG/DL Total Protein 8.1 GM/DL Albumin 3.7 GM/DL Calcium Level 8.7 MG/DL Alkaline Phosphatase 93 U/L Aspartate Amino Transf (AST/SGOT) 43 U/L Alanine Aminotransferase (ALT/SGPT) 59 U/L Total Bilirubin 0.3 MG/DL Sodium Level 139 MEQ/L Potassium Level 3.6 MEQ/L Chloride Level 105 MEQ/L Carbon Dioxide Level 23.7 MEQ/L Anion Gap 10 MEQ/L Estimat Glomerular Filtration Rate 80 ML/MIN MDM Medical Decision Making Medical Screen Exam Complete: Yes Emergency Medical Condition: Yes Medical Record Reviewed: Yes Interpretation(s) Vital Signs Date Time Temp Pulse Resp B/P (MAP) Pulse Ox O2 Delivery O2 Flow Rate FiO2 04/16/17 12:59 16 04/16/17 12:40 97.8 102 22 141/78 (99) 100 Differential Diagnosis Gastroparesis, gastroenteritis, appendicitis, electrolyte abnormality Narrative Course 46 year old female who presents to ER with c/o of right mid abdominal pain which has been ongoing and acute for the past 30 min. During the course of the patients emergency department visit, the patients history, examination, and differential diagnosis were reviewed with the patient. The patient was placed on a gold miner with oximetry and frequent blood pressure monitoring. The patient had a 20-gauge IV access obtained and blood work sent for analysis. The patient was initially provided IV fluids, IV Zofran as well as IM Haldol The patients laboratory studies were reviewed and remarkable for: CBC & BMP Diagram 04/16/17 13:30 Total Protein 8.1, Albumin 3.7, Calcium Level 8.7, Alkaline Phosphatase 93, Aspartate Amino Transf (AST/SGOT) 43 H, Alanine Aminotransferase (ALT/SGPT) 59 H , Total Bilirubin 0.3 Radiology studies were reviewed and remarkable for: CT abdomen pelvis with findings of an enlarged severe fatty liver, otherwise negative CT the abdomen and pelvis. I reviewed all labs and all studies with patient in detail, discussed need for her to follow-up with tool design checker. Abdomen is soft, nt/nd, no peritoneal signs on discharge. Patient reports that she is feeling much better at this time. Patient will be provided with a copy of her labs and studies at discharge. Signs and symptoms of when to return to emergency room was reviewed patient in detail. Patient thankful for care Diagnosis Primary Impression: Abdominal pain Qualified Codes: R10.9 - Unspecified abdominal pain Additional Impressions: Anemia Qualified Codes: D64.9 - Anemia, unspecified Fatty liver Referrals: Jia Payne MD Patient Instructions: General Instructions Departure Forms: Tests/Procedures, Work Release Enter return to work date: Apr 18, 2017 Additional Instructions: Please provide patient with a copy of their lab work and studies at discharge* * Please follow up with your primary care doctor in 2-3 days Return to the ER if symptoms worsen or progress Return to the ER as needed Please drink plenty of fluids Please follow-up with a tool design checker as soon as possible Disposition: 01 DISCHARGE HOME Condition: Stable Dilma Coello DO Apr 16, 2017 13:24
[2017-04-16] MEDS ORDERED: HALOPERIDOL LACTATE 5 MG/ML AMP IM ONE (13:30)
[2017-04-16 13:34] VITALS: RESP 16; O2SAT 99
[2017-04-16 13:58] LABS: AUTOMATED NEUTROPHIL # 5.5 TH/MM3 (1.8-7.7); BASOPHIL # 0.1 TH/MM3 (0-0.2); BASOPHIL % 0.9 % (0.0-2.0); EOSINOPHIL # 0.4 TH/MM3 (0-0.4); EOSINOPHIL % 3.9 % (0.0-4.0); HEMATOCRIT 31.2 % (35.0-46.0); LYMPH % 27.4 % (9.0-44.0); LYMPHOCYTE # 2.5 TH/MM3 (1.0-4.8); MEAN CELL VOLUME 63.1 FL (80.0-100.0); MEAN CORPUSCULAR HEMOGLOBIN 19.1 PG (27.0-34.0); MEAN CORPUSCULAR HGB CONC 30.2 % (32.0-36.0); MONO % 6.7 % (0.0-8.0); NEUT % 61.1 % (16.0-70.0); PLATELET COUNT 160 TH/MM3 (150-450); RED BLOOD COUNT 4.95 MIL/MM3 (4.00-5.30); RED CELL DISTRIBUTION WIDTH 20.8 % (11.6-17.2)
[2017-04-16 14:07] LABS: HEMO FLAGS AUTO DIFF
[2017-04-16 14:14] LABS: ANION GAP 10 MEQ/L (5-15); AST (GOT) 43 U/L (15-37); BICARBONATE 23.7 MEQ/L (21.0-32.0); BLOOD UREA NITROGEN 9 MG/DL (7-18); CHLORIDE 105 MEQ/L (98-107); GLOMERULAR FILTRATION RATE 80 ML/MIN (>89); POTASSIUM 3.6 MEQ/L (3.5-5.1); SODIUM (NA) 139 MEQ/L (136-145)
[2017-04-16 14:16] LABS: APTT (PATIENT) 26.1 SEC (24.3-30.1); INTERNATIONAL NORMALIZED RATIO 0.9 RATIO; PROTHROMBIN TIME - PATIENT 10.2 SEC (9.8-11.6)
[2017-04-16 14:17] LABS: ALKALINE PHOSPHATASE 93 U/L (45-117); ALT (GPT) 59 U/L (10-53); BACTERIA, URINE RARE /hpf; BLOOD, URINE NEG (NEG); COMMENT (UR) CULT NOT INDICATED; CULTURE IF INDICATED CULT NOT INDICATED; GLUCOSE,URINE NEG (NEG); KETONE, URINE NEG (NEG); NITRITE,URINE NEG (NEG); SQUAMOUS EPITHELIAL CELL URINE 2 /hpf (0-5); TOTAL BILIRUBIN ADULT 0.3 MG/DL (0.2-1.0); URINE COLOR YELLOW (YELLW/STRAW)
[2017-04-16 14:36] LABS: OVALOCYTES 1+ (NORMAL); PLATELET ESTIMATE SMEAR NORMAL (NORMAL); PLATELET MORPHOLOGY ENLARGED (NORMAL)
[2017-04-16 14:37] LABS: SCAN/DIFF AUTO DIFF CONFIRMED
--- NOTE | 2017-04-16 15:07 | RADRPT ---
EXAM DATE/TIME: 04/16/2017 14:26 [facility] COMPARISON: CT ABDOMEN & PELVIS W/O CONTRAST, October 16, 2016, 12:54. INDICATIONS : Right upper quadrant pain. ORAL CONTRAST: No oral contrast ingested. RADIATION DOSE: 16.07 CTDIvol (mGy) MEDICAL HISTORY : Stroke. Cardiovascular disease Hypertension. SURGICAL HISTORY : Cholecystectomy. ENCOUNTER: Initial ACUITY: 1 day PAIN SCALE: 6/10 LOCATION: Right upper quadrant TECHNIQUE: Volumetric scanning of the abdomen and pelvis was performed. Using automated exposure control and ad justment of the mA and/or kV according to patient size, radiation dose was kept as low as reasonably achievable to obtain optimal diagnostic quality images. DICOM format image data is available electro nically for review and comparison. FINDINGS: LOWER LUNGS: The visualized lower lungs are clear. LIVER: Measures 23.3 cm craniocaudal. Severe, diffuse fatty infiltration. No focal hepatic lesion or ductal dilatation. Previous cholecystectomy. SPLEEN: Normal size without lesion. PANCREAS: Within normal limits. KIDNEYS: Normal in size and shape. There is no mass, stone, or hydronephrosis. ADRENAL GLANDS: Within normal limits. VASCULAR: There is no aortic aneurysm. BOWEL/MESENTERY: The stomach, small bowel, and colon demonstrate no acute abnormality. There is no free intraperitone al air or fluid. Appendix well visualized, normal. ABDOMINAL WALL: Within normal limits. RETROPERITONEUM: There is no lymphadenopathy. BLADDER: No wall thickening or mass. REPRODUCTIVE: Within normal limits. INGUINAL: There is no lymphadenopathy or hernia. MUSCULOSKELETAL: No acute bony abnormality demonstrated. CONCLUSION: Enlarged and severely fatty infiltrated liver. Otherwise negative CT of the abdomen and pelvis. Previ ous cholecystectomy. Shravan Luna MD on April 16, 2017 at 15:03 Board Certified Radiologist. This report was verified electronically.
== END 2017-04-16 15:49 | disposition home or self-care (01) ==
LOC: NEPD 12:39
DX: R10.9 Unspecified abdominal pain (principal); D64.9 Anemia, unspecified; K76.0 Fatty (change of) liver, not elsewhere classified; J45.909 Unspecified asthma, uncomplicated; M32.9 Systemic lupus erythematosus, unspecified; F41.9 Anxiety disorder, unspecified; I10 Essential (primary) hypertension; E11.9 Type 2 diabetes mellitus without complications; M79.7 Fibromyalgia
CPT/HCPCS: 74176; 80053; 81001; 84703; 85025; 85610; 85730; 96361; 96372; 96374; 99285; J1630; J2405; J7030

== ENCOUNTER 2017-05-01 16:50 | Emergency (ER) | payer OTHER ==
[~2017-05-01] VITALS: Ht 160 cm; Wt 95.0 kg
[~2017-05-01 16:50] MED LIST changes: -PRED20 PO
[2017-05-01 16:53] VITALS: BP 162/98; PULSE 110; RESP 17; TEMP 98.8; O2SAT 99
[2017-05-01 18:32] LABS: BACTERIA, URINE MANY /hpf; BLOOD, URINE MOD (NEG); COMMENT (UR) CULTURE INDICATED; CULTURE IF INDICATED CULTURE INDICATED; GLUCOSE,URINE NEG (NEG); KETONE, URINE NEG (NEG); MUCUS URINE FEW /lpf (OCC); NITRITE,URINE NEG (NEG); PH, URINE 5.5 (5.0-8.5); SQUAMOUS EPITHELIAL CELL URINE 8 /hpf (0-5); URINE COLOR YELLOW (YELLW/STRAW)
[2017-05-01] MEDS ORDERED: ZOFR4TAB PO (18:37)
[2017-05-01] MEDS ORDERED: MACR100C3 PO (18:37)
--- NOTE | 2017-05-01 18:42 | PD ---
HPI Chief Complaint: Back/ Neck Pain or Injury Time Seen by Provider: 17:54 Travel History International Travel<30 days: No Contact w/Intl Traveler<30days: No Traveled to known affect area: No History of Present Illness HPI 46-year-old female presents the emergency department today history of low back pain radiating around to the anterior suprapubic region with burning urination which has worsened over the past 2 days. Patient states also diarrhea which is chronic for her, but her chief complaint is of the dysuria and abdominal cramping. She denies fever, but has had nausea but no vomiting. She has multiple allergies please see list. Pain is currently 8 out of 10, with 10 out of 10 burning with urination. PFSH Past Medical History Hx Anticoagulant Therapy: Yes Asthma: Yes Autoimmune Disease: Yes (LUPUS) Blood Disorders: No Anxiety: Yes Depression: No Heart Rhythm Problems: No Cancer: No Cardiovascular Problems: Yes (htn) High Cholesterol: No Chest Pain: No Congestive Heart Failure: No COPD: No Cerebrovascular Accident: Yes (TIA) Diabetes: Yes (TYPE 2) Patient Takes Glucophage: Yes Diminished Hearing: No Fibromyalgia: Yes Gastrointestinal Disorders: Yes (GASTRITIS, GASTRPORESIS) GERD: Yes Genitourinary: No Hypertension: Yes Implanted Vascular Access Dvce: No Musculoskeletal: Yes (CARPAL TUNNEL) Neurologic: Yes (FIBROMYALGIA) Psychiatric: Yes Reproductive: No Respiratory: Yes (ASTHMA ) Immunizations Current: Yes Sleep Apnea: No Tetanus Vaccination: < 5 Years ?: Not : 2 Para: 2 Miscarriage: 0 : 0 Past Surgical History Section: Yes (X2) Cholecystectomy: Yes Other Surgery: Yes (tendonitis - R. HAND) Social History Alcohol Use: No Tobacco Use: No Substance Use: No Allergies-Medications (Allergen,Severity, Reaction): Coded Allergies: iodine (Verified Allergy, Severe, Anaphylaxis, 05/01/17) potassium iodide (Verified Allergy, Severe, Anaphylaxis, 05/01/17) povidone-iodine (Verified Allergy, Severe, Anaphylaxis, 05/01/17) shellfish derived (Verified Allergy, Severe, Anaphylaxis, 05/01/17) sodium iodide (Verified Allergy, Severe, Anaphylaxis, 05/01/17) sodium iodide (Verified Allergy, Severe, Anaphylaxis, 05/01/17) theophylline (Verified Allergy, Severe, Anaphylaxis, 05/01/17) aminophylline (Verified Allergy, Intermediate, MAKES HER HYPER ELEVATES BP , 05/01/17) naproxen (Verified Allergy, Intermediate, Rash, 05/01/17) penicillin G (Verified Allergy, Intermediate, RASH, 05/01/17) azathioprine (Verified Allergy, Unknown, 05/01/17) broccoli (Verified Allergy, Unknown, 05/01/17) cephalexin (Verified Allergy, Unknown, 05/01/17) diphenhydramine (Verified Adverse Reaction, Mild, palpitations, 05/01/17) pushed too quickly ibuprofen (Verified Adverse Reaction, Mild, LUPUS, 05/01/17) Uncoded Allergies: Eggplant (Allergy, Intermediate, 10/09/16) AMRNOHILSON (Adverse Reaction, Severe, 10/09/16) .. Reported Meds & Prescriptions Reported Meds & Active Scripts Active Flovent Hfa 12 GM Inh (Fluticasone Propionate) 220 Mcg/Act Inh 1 Puff INH BID Use daily at the same time. Ventolin Hfa 18 GM Inh (Albuterol Sulfate) 90 Mcg/Act Aer 2 Puff INH Q4-6H PRN Albuterol Neb (Albuterol Sulfate) 2.5 Mg/3 Ml Neb 2.5 Mg NEB Q4HR NEB PRN Duoneb (Ipratropium-Albuterol Neb) 0.5-2.5 Mg/3 Ml Neb 1 Nebule INH Q8HR NEB Colace (Docusate Sodium) 100 Mg Capsule 100 Mg PO BID Reported Amitriptyline (Amitriptyline HCl) 10 Mg Tab 10 Mg PO HS Pantoprazole (Pantoprazole Sodium) 40 Mg Tab 40 Mg PO DAILY PRN Lyrica (Pregabalin) 50 Mg Cap 50 Mg PO TID Metoclopramide (Metoclopramide HCl) 10 Mg Tab 10 Mg PO TIDAC Lisinopril 20 Mg Tab 20 Mg PO DAILY Chlorthalidone 25 Mg Tab 12.5 Mg PO DAILY Mobic (Meloxicam) 15 Mg Tab 15 Mg PO DAILY Metformin (Metformin HCl) 1,000 Mg Tab 1,000 Mg PO BIDPC PRN With meals Duloxetine DR (Duloxetine HCl) 20 Mg Capdr 20 Mg PO DAILY Review of Systems Except as stated in HPI: all other systems reviewed are Neg General / Constitutional: No: Fever Eyes: No: Visual changes HENT: No: Headaches Cardiovascular: No: Chest Pain or Discomfort Respiratory: No: Shortness of Breath Gastrointestinal: Positive: Nausea, No: Vomiting, Diarrhea, Abdominal Pain Genitourinary: Positive: Urgency, Frequency, Dysuria, Pelvic Pain Musculoskeletal: No: Pain Skin: No Rash Neurologic: No: Weakness Psychiatric: No: Depression Endocrine: No: Polydipsia Hematologic/Lymphatic: No: Easy Bruising Physical Exam Narrative GENERAL: Patient appears in mild to moderate distress. SKIN: Warm and dry. Normal color. Normal turgor. HEAD: Atraumatic. Normocephalic. EYES: Pupils equal and round. No scleral icterus. No injection or drainage. ENT: No nasal bleeding or discharge. Mucous membranes pink and moist. Pharynx is clear. Airway is patent. NECK: Trachea midline. Supple and nontender. CARDIOVASCULAR: Regular rate and rhythm. RESPIRATORY: No accessory muscle use. Clear to auscultation. Breath sounds equal bilaterally. GASTROINTESTINAL: Abdomen soft, mild to moderate generalized suprapubic tenderness. No rebound, nondistended. No CVA tenderness Hepatic and splenic margins not palpable. MUSCULOSKELETAL: Extremities without clubbing, cyanosis, or edema. No obvious deformities. NEUROLOGICAL: Awake and alert. No obvious cranial nerve deficits. Motor grossly within normal limits. Five out of 5 muscle strength in the arms and legs. Normal speech. PSYCHIATRIC: Appropriate mood and affect; insight and judgment normal. Data Data Last Documented VS Vital Signs Date Time Temp Pulse Resp B/P (MAP) Pulse Ox O2 Delivery O2 Flow Rate FiO2 05/01/17 16:53 98.8 110 17 162/98 (119) 99 Room Air Orders Orders Urinalysis - C+S If Indicated (05/01/17 17:53) Urine Culture (05/01/17 18:01) Labs Laboratory Tests Test 05/01/17 18:01 Urine Color YELLOW Urine Turbidity HAZY Urine pH 5.5 Urine Specific [place] 1.023 Urine Protein TRACE mg/dL Urine Glucose (UA) NEG mg/dL Urine Ketones NEG mg/dL Urine Occult Blood MOD Urine Nitrite NEG Urine Bilirubin NEG Urine Urobilinogen LESS THAN 2.0 MG/DL Urine Leukocyte Esterase LARGE Urine RBC 10 /hpf Urine WBC 16 /hpf Urine Squamous Epithelial Cells 8 /hpf Urine Amorphous Sediment RARE Urine Bacteria MANY /hpf Urine Mucus FEW /lpf Microscopic Urinalysis Comment CULTURE INDICATED MDM Medical Decision Making Medical Screen Exam Complete: Yes Emergency Medical Condition: Yes Medical Record Reviewed: Yes Differential Diagnosis Dysuria. Abdominal pain. Abdominal cramps. Chronic diarrhea. UTI. Nausea. Narrative Course Patient is medically stable at time of exam. Urinalysis is showing obvious urinary tract infection. And urine culture is placed. Further medical workup was not felt warranted based on my history and physical. Patient is treated with Macrobid 100 mg twice a day for 7 days. Urine culture is pending. Patient should follow with her primary care physician in the next several days. Patient can return the emergency Department with worsening symptoms as needed. Diagnosis Primary Impression: UTI (urinary tract infection) Qualified Codes: N30.00 - Acute cystitis without hematuria Referrals: Primary Care Physician Patient Instructions: Abdominal Pain (ED), Dysuria (ED), General Instructions Additional Instructions: Urinalysis is showing obvious urinary tract infection. And urine culture is placed. Further medical workup was not felt warranted based on my history and physical. Patient is treated with Macrobid 100 mg twice a day for 7 days. Urine culture is pending. Patient should follow with her primary care physician in the next several days. Patient can return the emergency Department with worsening symptoms as needed. Med/Other Pt SpecificInfo: Prescription(s) given Scripts Ondansetron (Zofran) 4 Mg Tab 4 MG PO Q6HR Y for NAUSEA OR VOMITING, #20 TAB 0 Refills Prov: Kelvin Frederick MD 05/01/17 Nitrofurantoin Macrocrystal (Macrodantin) 100 Mg Cap 100 MG PO BID for 7 Days, #14 CAP 0 Refills Prov: Kelvin Frederick MD 05/01/17 Disposition: 01 DISCHARGE HOME Condition: Stable Roland Mercado May 01, 2017 18:42
== END 2017-05-01 18:57 | disposition home or self-care (01) ==
LOC: NEPK 16:50
DX: N39.0 Urinary tract infection, site not specified (principal); R11.0 Nausea; R19.7 Diarrhea, unspecified; J45.909 Unspecified asthma, uncomplicated; M32.9 Systemic lupus erythematosus, unspecified; F41.9 Anxiety disorder, unspecified; I10 Essential (primary) hypertension; E11.9 Type 2 diabetes mellitus without complications; M79.7 Fibromyalgia
CPT/HCPCS: 81001; 87086; 99284

== ENCOUNTER 2017-05-17 19:50 | Emergency (ER) | payer OTHER ==
[~2017-05-17 19:50] MED LIST changes: -AMBI10TA PO; -AZIT500T2 PO; +MACR100C3 PO; -TRAM50TA PO
[2017-05-17 19:52] VITALS: BP 174/99; PULSE 110; RESP 20; TEMP 98.6; O2SAT 98
[2017-05-17 22:40] VITALS: BP 148/88; PULSE 97; RESP 18; O2SAT 99
[2017-05-17 23:09] LABS: AUTOMATED NEUTROPHIL # 8.6 TH/MM3 (1.8-7.7); BASOPHIL % 0.4 % (0.0-2.0); EOSINOPHIL % 0.3 % (0.0-4.0); HEMATOCRIT 31.5 % (35.0-46.0); LYMPH % 11.4 % (9.0-44.0); LYMPHOCYTE # 1.2 TH/MM3 (1.0-4.8); MEAN CELL VOLUME 62.6 FL (80.0-100.0); MEAN CORPUSCULAR HEMOGLOBIN 19.4 PG (27.0-34.0); MONO % 2.9 % (0.0-8.0); PLATELET COUNT 182 TH/MM3 (150-450); RED BLOOD COUNT 5.03 MIL/MM3 (4.00-5.30); RED CELL DISTRIBUTION WIDTH 21.2 % (11.6-17.2); WHITE BLOOD COUNT 10.1 TH/MM3 (4.0-11.0)
[2017-05-17 23:12] LABS: HEMO FLAGS AUTO DIFF
[2017-05-17 23:32] LABS: ANION GAP 8 MEQ/L (5-15); AST (GOT) 55 U/L (15-37); BICARBONATE 26.5 MEQ/L (21.0-32.0); BLOOD UREA NITROGEN 10 MG/DL (7-18); CHLORIDE 103 MEQ/L (98-107); GLOMERULAR FILTRATION RATE 74 ML/MIN (>89); POTASSIUM 4.3 MEQ/L (3.5-5.1); SODIUM (NA) 137 MEQ/L (136-145)
[2017-05-17 23:34] LABS: ALT (GPT) 71 U/L (10-53)
[2017-05-17 23:36] LABS: ALKALINE PHOSPHATASE 108 U/L (45-117); TOTAL BILIRUBIN ADULT 0.5 MG/DL (0.2-1.0)
[2017-05-17 23:55] LABS: OVALOCYTES 1+ (NORMAL); PLATELET ESTIMATE SMEAR NORMAL (NORMAL); PLATELET MORPHOLOGY ENLARGED (NORMAL); SCAN/DIFF AUTO DIFF CONFIRMED
[2017-05-17] MEDS ORDERED: PROM25TA10 PO (23:58)
[2017-05-17] MEDS ORDERED: ZOFR4TAB3 SL (23:58)
--- NOTE | 2017-05-17 23:58 | PD ---
HPI Chief Complaint: GI Complaint Time Seen by Provider: 23:37 Travel History International Travel<30 days: No Contact w/Intl Traveler<30days: No Traveled to known affect area: No History of Present Illness HPI 47 years old female complains of abdominal pain with nausea vomiting. Patient states that symptoms started this afternoon. Patient has history of recurrent abdominal pain with nausea vomiting and gastroparesis. Patient has been seen by local physician however has not seen a cafeteria counter attendant recently. Patient states that she has mild aching headache. Patient denies any visual change. Patient denies any neck pain. Patient denies any chest pain or shortness of breath. Patient stated abdominal pain cramping pain sharp pain localized around the epigastric area. Patient denies any pain radiation. Patient denies any dysuria or frequency. Patient denies any vaginal discharge or bleeding. PFSH Past Medical History Hx Anticoagulant Therapy: Yes Asthma: Yes Autoimmune Disease: Yes (LUPUS) Blood Disorders: No Anxiety: Yes Depression: No Heart Rhythm Problems: No Cancer: No Cardiovascular Problems: Yes (htn) High Cholesterol: No Chest Pain: No Congestive Heart Failure: No COPD: No Cerebrovascular Accident: Yes (TIA) Diabetes: Yes (TYPE 2) Patient Takes Glucophage: Yes Diminished Hearing: No Fibromyalgia: Yes Gastrointestinal Disorders: Yes (GASTRITIS, GASTRPORESIS) GERD: Yes Genitourinary: No Hypertension: Yes Implanted Vascular Access Dvce: No Musculoskeletal: Yes (CARPAL TUNNEL) Neurologic: Yes (FIBROMYALGIA) Psychiatric: Yes Reproductive: No Respiratory: Yes (ASTHMA ) Immunizations Current: Yes Sleep Apnea: No ?: Not : 2 Para: 2 Miscarriage: 0 : 0 Past Surgical History Section: Yes (X2) Cholecystectomy: Yes Other Surgery: Yes (tendonitis - R. HAND) Social History Alcohol Use: No Tobacco Use: No Substance Use: No Allergies-Medications (Allergen,Severity, Reaction): Coded Allergies: iodine (Verified Allergy, Severe, Anaphylaxis, 05/01/17) potassium iodide (Verified Allergy, Severe, Anaphylaxis, 05/01/17) povidone-iodine (Verified Allergy, Severe, Anaphylaxis, 05/01/17) shellfish derived (Verified Allergy, Severe, Anaphylaxis, 05/01/17) sodium iodide (Verified Allergy, Severe, Anaphylaxis, 05/01/17) sodium iodide (Verified Allergy, Severe, Anaphylaxis, 05/01/17) theophylline (Verified Allergy, Severe, Anaphylaxis, 05/01/17) aminophylline (Verified Allergy, Intermediate, MAKES HER HYPER ELEVATES BP , 05/01/17) naproxen (Verified Allergy, Intermediate, Rash, 05/01/17) penicillin G (Verified Allergy, Intermediate, RASH, 05/01/17) azathioprine (Verified Allergy, Unknown, 05/01/17) broccoli (Verified Allergy, Unknown, 05/01/17) cephalexin (Verified Allergy, Unknown, 05/01/17) diphenhydramine (Verified Adverse Reaction, Mild, palpitations, 05/01/17) pushed too quickly ibuprofen (Verified Adverse Reaction, Mild, LUPUS, 05/01/17) Uncoded Allergies: Eggplant (Allergy, Intermediate, 10/09/16) AMRNOHILSON (Adverse Reaction, Severe, 10/09/16) .. Reported Meds & Prescriptions Reported Meds & Active Scripts Active Zofran (Ondansetron HCl) 4 Mg Tab 4 Mg PO Q6HR PRN Macrodantin (Nitrofurantoin Macrocrystal) 100 Mg Cap 100 Mg PO BID 7 Days Flovent Hfa 12 GM Inh (Fluticasone Propionate) 220 Mcg/Act Inh 1 Puff INH BID Use daily at the same time. Ventolin Hfa 18 GM Inh (Albuterol Sulfate) 90 Mcg/Act Aer 2 Puff INH Q4-6H PRN Albuterol Neb (Albuterol Sulfate) 2.5 Mg/3 Ml Neb 2.5 Mg NEB Q4HR NEB PRN Duoneb (Ipratropium-Albuterol Neb) 0.5-2.5 Mg/3 Ml Neb 1 Nebule INH Q8HR NEB Colace (Docusate Sodium) 100 Mg Capsule 100 Mg PO BID Reported Amitriptyline (Amitriptyline HCl) 10 Mg Tab 10 Mg PO HS Pantoprazole (Pantoprazole Sodium) 40 Mg Tab 40 Mg PO DAILY PRN Lyrica (Pregabalin) 50 Mg Cap 50 Mg PO TID Metoclopramide (Metoclopramide HCl) 10 Mg Tab 10 Mg PO TIDAC Lisinopril 20 Mg Tab 20 Mg PO DAILY Chlorthalidone 25 Mg Tab 12.5 Mg PO DAILY Mobic (Meloxicam) 15 Mg Tab 15 Mg PO DAILY Metformin (Metformin HCl) 1,000 Mg Tab 1,000 Mg PO BIDPC PRN With meals Duloxetine DR (Duloxetine HCl) 20 Mg Capdr 20 Mg PO DAILY Review of Systems General / Constitutional: No: Fever Eyes: No: Visual changes HENT: Positive: Headaches Cardiovascular: No: Chest Pain or Discomfort Respiratory: No: Shortness of Breath Gastrointestinal: Positive: Nausea, Vomiting, Abdominal Pain Genitourinary: No: Dysuria Musculoskeletal: No: Pain Skin: No Rash Neurologic: No: Weakness Psychiatric: No: Depression Endocrine: No: Polydipsia Hematologic/Lymphatic: No: Easy Bruising Physical Exam Narrative GENERAL: Well-nourished, well-developed patient. SKIN: Focused skin assessment warm/dry. HEAD: Normocephalic. EYES: No scleral icterus. No injection or drainage. NECK: Supple, trachea midline. No JVD or lymphadenopathy. CARDIOVASCULAR: Regular rate and rhythm without murmurs, gallops, or rubs. RESPIRATORY: Breath sounds equal bilaterally. No accessory muscle use. GASTROINTESTINAL: Abdomen soft, nondistended. Patient has mild to moderate tenderness on palpation epigastric area. No rebound tenderness. No mass. MUSCULOSKELETAL: No cyanosis, or edema. BACK: Nontender without obvious deformity. No CVA tenderness. Neurologic exam normal. Data Data Last Documented VS Vital Signs Date Time Temp Pulse Resp B/P (MAP) Pulse Ox O2 Delivery O2 Flow Rate FiO2 05/17/17 22:40 97 18 148/88 (108) 99 Room Air 05/17/17 19:52 98.6 Orders Orders Complete Blood Count With Diff (05/17/17 20:59) Comprehensive Metabolic Panel (05/17/17 20:59) Lipase (05/17/17 20:59) Ns (Bolus) Inj (05/18/17 00:00) Ondansetron Inj (Zofran Inj) (05/18/17 00:00) Labs Laboratory Tests Test 05/17/17 22:55 White Blood Count 10.1 TH/MM3 Red Blood Count 5.03 MIL/MM3 Hemoglobin 9.8 GM/DL Hematocrit 31.5 % Mean Corpuscular Volume 62.6 FL Mean Corpuscular Hemoglobin 19.4 PG Mean Corpuscular Hemoglobin Concent 31.0 % Red Cell Distribution Width 21.2 % Platelet Count 182 TH/MM3 Mean Platelet Volume 10.6 FL Neutrophils (%) (Auto) 85.0 % Lymphocytes (%) (Auto) 11.4 % Monocytes (%) (Auto) 2.9 % Eosinophils (%) (Auto) 0.3 % Basophils (%) (Auto) 0.4 % Neutrophils # (Auto) 8.6 TH/MM3 Lymphocytes # (Auto) 1.2 TH/MM3 Monocytes # (Auto) 0.3 TH/MM3 Eosinophils # (Auto) 0.0 TH/MM3 Basophils # (Auto) 0.0 TH/MM3 CBC Comment AUTO DIFF Blood Urea Nitrogen 10 MG/DL Creatinine 0.83 MG/DL Random Glucose 119 MG/DL Total Protein 8.6 GM/DL Albumin 4.1 GM/DL Calcium Level 9.1 MG/DL Alkaline Phosphatase 108 U/L Aspartate Amino Transf (AST/SGOT) 55 U/L Alanine Aminotransferase (ALT/SGPT) 71 U/L Total Bilirubin 0.5 MG/DL Sodium Level 137 MEQ/L Potassium Level 4.3 MEQ/L Chloride Level 103 MEQ/L Carbon Dioxide Level 26.5 MEQ/L Anion Gap 8 MEQ/L Estimat Glomerular Filtration Rate 74 ML/MIN Lipase 210 U/L MDM Medical Decision Making Medical Screen Exam Complete: Yes Emergency Medical Condition: Yes Medical Record Reviewed: Yes Differential Diagnosis Differential diagnosis including acute exacerbation of gastroparesis, gastritis , PUD, pancreatitis, cholecystitis, colitis, UTI, pyelonephritis. Narrative Course 47 years old female with recurrent abdominal pain, nausea vomiting. History of gastroparesis. Normal saline solution 500 cc IV bolus. Zofran 4 mg IV. Diagnosis Primary Impression: Abdominal pain Qualified Codes: R10.13 - Epigastric pain Additional Impression: Cyclical vomiting with nausea Qualified Codes: G43.A0 - Cyclical vomiting, not intractable Patient Instructions: General Instructions Additional Instructions: Continue with Zofran and Phenergan as directed. Follow-up with cafeteria counter attendant and personal physician. Med/Other Pt SpecificInfo: Prescription(s) given Scripts Ondansetron Odt (Zofran Odt) 4 Mg Tab 4 MG SL Q6HR Y for Nausea/Vomiting, #20 TAB 0 Refills Prov: Kirill Huizar MD 05/17/17 Promethazine (Phenergan) 25 Mg Tablet 25 MG PO Q6H Y for NAUSEA OR VOMITING, #20 TAB 0 Refills Prov: Kirill Huizar MD 05/17/17 Disposition: 01 DISCHARGE HOME Condition: Stable Kirill Huizar MD May 17, 2017 23:58
[2017-05-18] MEDS ORDERED: ACETAMINOPHEN 325 MG TAB PO ONE
[2017-05-18] MEDS ORDERED: SODIUM CHLORID 0.9% 500 ML INJ 500 ML IV ONE
[2017-05-18] MEDS ORDERED: ONDANSETRON HCL 4 MG/2 ML VIAL IV PUSH ONE
[2017-05-18 00:09] VITALS: BP 170/96; PULSE 92; RESP 18; O2SAT 100
== END 2017-05-18 00:17 | disposition home or self-care (01) ==
LOC: NEPD 19:50
DX: G43.A0 Cyclical vomiting, in migraine, not intractable (principal); E11.43 Type 2 diabetes mellitus with diabetic autonomic (poly)neuropathy; K31.84 Gastroparesis; M79.7 Fibromyalgia; M32.9 Systemic lupus erythematosus, unspecified; I10 Essential (primary) hypertension; Z79.84 Long term (current) use of oral hypoglycemic drugs
CPT/HCPCS: 80053; 83690; 85025; 96374; 99284; J2405; J7040

== ENCOUNTER 2017-06-23 18:09 | Emergency (ER) | payer OTHER ==
[~2017-06-23] VITALS: Ht 160 cm; Wt 90.5 kg
[~2017-06-23 18:09] MED LIST changes: -ACETAMINOPHEN/HYDROcodone 325 MG/5 MG TAB ONE; -BUPIVACAINE HCL PF 0.5% 30 ML VIAL ONE; -CHLORHEXIDINE GLUCONATE 2 % 1 PACK (2 CLOTHS) TOPICAL PRN; -CHLORHEXIDINE GLUCONATE 4% SOLN 120 ML BTL TOPICAL SCH; -DEXAMETHASONE SOD PHOS 4 MG/ML VIAL ONE; -FAMOTIDINE 20 MG/2 ML VIAL ONE; -LACTATED RINGER'S 1000 ML IV PRN; -LIDOCAINE HCL 2% 50 ML VIAL ONE; -METOCLOPRAMIDE HCL 10 MG/2 ML VIAL ONE; -METOPROLOL TARTRATE 25 MG TAB PO PRN; -MIDAZOLAM HCL 2 MG/2 ML VIAL ONE; -MORPHINE SULFATE 4 MG/ML INJ ONE; -OMEP40CA2 PO; -REGL10TA5 PO; -SODIUM CHLORID 0.9% 500 ML IV PRN; -SUGAMMADEX SODIUM 200 MG/2 ML VIAL IV PUSH ONE; -VANCOMYCIN 500 MG VIAL ONE; -fentaNYL CITRATE 250 MCG/5 ML AMP ONE; -methylPREDNISolone SOD SUCC 125 MG/2 ML VIAL ONE
[2017-06-23 18:12] VITALS: BP 146/70; PULSE 131; RESP 14; TEMP 98.9; O2SAT 97
--- NOTE | 2017-06-23 18:39 | PD ---
HPI Chief Complaint: GI Complaint Time Seen by Provider: 18:39 (Roland Mercado) Travel History International Travel<30 days: No Contact w/Intl Traveler<30days: No Traveled to known affect area: No (Alba Leslie MD) International Travel<30 days: No Contact w/Intl Traveler<30days: No Traveled to known affect area: No (Roland Mercado) History of Present Illness HPI 47yo F presented to the ED with vomiting since 4pm today. At 10:30am, the pt underwent carpal tunnel release surgery of the L wrist under general anesthesia. She was then given (Alba Leslie MD) HPI 47-year-old female presents the emergency department with intractable nausea and vomiting since 4:00 this afternoon. Patient underwent surgery to the left hand for Dupuytren's contracture this morning at [facility]. Dr. Mckinley performed the surgery. Patient states she was sent home with oral Phenergan, and Lortab for pain. She states when she arrived home she took a nap and woke up, and when she sat up and had immediate nausea and vomiting. Patient continues to have nausea and vomiting and complaints of epigastric pain. She denies blood in the emesis. Pain is 9 out of 10 in the epigastric region. Pain in the hand is also 7/10. Patient reports previous reaction to anesthesia in the past. Patient has multiple allergies please see her list. (Roland Mercado) PFSH Past Medical History Hx Anticoagulant Therapy: Yes Asthma: Yes Autoimmune Disease: Yes (LUPUS) Blood Disorders: No Anxiety: Yes Depression: No Heart Rhythm Problems: No Cancer: No Cardiovascular Problems: No High Cholesterol: No Chest Pain: No Congestive Heart Failure: No COPD: No Cerebrovascular Accident: Yes (TIA) Diabetes: Yes (TYPE 2) Diminished Hearing: No Endocrine: Yes Fibromyalgia: Yes Gastrointestinal Disorders: Yes (GASTRITIS, GASTRPORESIS) GERD: Yes Genitourinary: No Hepatitis: No Hiatal Hernia: Yes (POSSIBLE) Hypertension: Yes Immune Disorder: No Implanted Vascular Access Dvce: No Musculoskeletal: Yes (BIALTERAL CARPAL TUNNEL) Neurologic: Yes (FIBROMYALGIA, MINI STROKE) Psychiatric: No Reproductive: No Respiratory: Yes (ASTHMA ) Immunizations Current: Yes Sleep Apnea: No Thyroid Disease: No ?: Not : 2 Para: 2 Miscarriage: 0 : 0 (Alba Leslie MD) Past Surgical History Abdominal Surgery: Yes (CHOLECYSTECTOMY) Cardiac Surgery: No Section: Yes (X2) Cholecystectomy: Yes Ear Surgery: No Endocrine Surgery: No Eye Surgery: No Genitourinary Surgery: No Gynecologic Surgery: Yes ( X 2) Oral Surgery: Yes (WISDOM TEETH) Thoracic Surgery: No Other Surgery: Yes (tendonitis - R. HAND) (Alba Leslie MD) Social History Alcohol Use: No Tobacco Use: No Substance Use: No (Alba Leslie MD) Alcohol Use: No Tobacco Use: No Substance Use: No (Roland Mercado) Allergies-Medications (Allergen,Severity, Reaction): Coded Allergies: broccoli (Verified Allergy, Severe, Diarrhea, 06/23/17) RASH cephalexin (Verified Allergy, Severe, Diarrhea, 06/23/17) ALSO RASH iodine (Verified Allergy, Severe, Anaphylaxis, 05/01/17) potassium iodide (Verified Allergy, Severe, Anaphylaxis, 05/01/17) povidone-iodine (Verified Allergy, Severe, Anaphylaxis, 05/01/17) shellfish derived (Verified Allergy, Severe, Anaphylaxis, 06/23/17) sodium iodide (Verified Allergy, Severe, Anaphylaxis, 06/23/17) sodium iodide (Verified Allergy, Severe, Anaphylaxis, 06/23/17) theophylline (Verified Allergy, Severe, Anaphylaxis, 06/23/17) aminophylline (Verified Allergy, Intermediate, MAKES HER HYPER ELEVATES BP , 06/23/17) naproxen (Verified Allergy, Intermediate, Rash, 06/23/17) penicillin G (Verified Allergy, Intermediate, RASH, 06/23/17) aminopyrine (Verified Allergy, Unknown, 06/23/17) DENIES ALLERGY azathioprine (Verified Allergy, Unknown, 06/23/17) diphenhydramine (Verified Adverse Reaction, Mild, palpitations, 06/23/17) pushed too quickly ibuprofen (Verified Adverse Reaction, Mild, 06/23/17) stomach pain Uncoded Allergies: Eggplant (Allergy, Intermediate, 10/09/16) AMRNOHILSON (Adverse Reaction, Severe, 10/09/16) .. Reported Meds & Prescriptions Reported Meds & Active Scripts Active Omeprazole 40 Mg Cap 40 Mg PO DAILY Reglan (Metoclopramide HCl) 10 Mg Tab 10 Mg PO TIDAC Macrodantin (Nitrofurantoin Macrocrystal) 100 Mg Cap 100 Mg PO BID 7 Days Phenergan (Promethazine HCl) 25 Mg Tablet 25 Mg PO Q6H PRN Zofran Odt (Ondansetron Odt) 4 Mg Tab 4 Mg SL Q6HR PRN Flovent Hfa 12 GM Inh (Fluticasone Propionate) 220 Mcg/Act Inh 1 Puff INH BID Use daily at the same time. Ventolin Hfa 18 GM Inh (Albuterol Sulfate) 90 Mcg/Act Aer 2 Puff INH Q4-6H PRN Albuterol Neb (Albuterol Sulfate) 2.5 Mg/3 Ml Neb 2.5 Mg NEB Q4HR NEB PRN Colace (Docusate Sodium) 100 Mg Capsule 100 Mg PO BID Reported Amitriptyline (Amitriptyline HCl) 10 Mg Tab 10 Mg PO HS Pantoprazole (Pantoprazole Sodium) 40 Mg Tab 40 Mg PO DAILY PRN Lyrica (Pregabalin) 50 Mg Cap 50 Mg PO TID Metoclopramide (Metoclopramide HCl) 10 Mg Tab 10 Mg PO TIDAC Lisinopril 20 Mg Tab 20 Mg PO DAILY Chlorthalidone 25 Mg Tab 12.5 Mg PO DAILY Mobic (Meloxicam) 15 Mg Tab 15 Mg PO DAILY Metformin (Metformin HCl) 1,000 Mg Tab 1,000 Mg PO BIDPC PRN With meals Duloxetine DR (Duloxetine HCl) 20 Mg Capdr 20 Mg PO DAILY (Roland Mercado) Review of Systems Except as stated in HPI: all other systems reviewed are Neg General / Constitutional: No: Fever Eyes: No: Visual changes HENT: No: Headaches Cardiovascular: No: Chest Pain or Discomfort Respiratory: No: Shortness of Breath Gastrointestinal: Positive: Nausea, Vomiting, Abdominal Pain (see history of present) Genitourinary: No: Dysuria Musculoskeletal: Positive: Pain (see history present illness.) Skin: No Rash Neurologic: No: Weakness Psychiatric: No: Depression Endocrine: No: Polydipsia Hematologic/Lymphatic: No: Easy Bruising (Roland Mercado) Physical Exam Narrative GENERAL: Patient appears in moderate distress. SKIN: Warm and dry. Decreased pallor. Normal turgor. HEAD: Atraumatic. Normocephalic. EYES: Pupils equal and round. No scleral icterus. No injection or drainage. ENT: No nasal bleeding or discharge. Mucous membranes pink and moist. Pharynx is clear. Airway is patent. NECK: Trachea midline. Supple nontender. CARDIOVASCULAR: Regular rate and rhythm. RESPIRATORY: No accessory muscle use. Clear to auscultation. Breath sounds equal bilaterally. GASTROINTESTINAL: Abdomen soft, moderate nonspecific epigastric tenderness, nondistended. No point tenderness or rebound. No CVA tenderness. Hepatic and splenic margins not palpable. MUSCULOSKELETAL: Extremities without clubbing, cyanosis, or edema. No obvious deformities. Left hand is wrapped in dressing from surgical procedure today. NEUROLOGICAL: Awake and alert. No obvious cranial nerve deficits. Motor grossly within normal limits. Five out of 5 muscle strength in the arms and legs. Normal speech. PSYCHIATRIC: Appropriate mood and affect; insight and judgment normal. (Roland Mercado) Data Data Last Documented VS Vital Signs Date Time Temp Pulse Resp B/P (MAP) Pulse Ox O2 Delivery O2 Flow Rate FiO2 06/23/17 19:24 120 14 155/80 (105) 94 06/23/17 18:12 98.9 (Roland Mercado) Orders Orders Complete Blood Count With Diff (06/23/17 18:40) Comprehensive Metabolic Panel (06/23/17 18:40) Lipase (06/23/17 18:40) Prothrombin Time / Inr (Pt) (06/23/17 18:40) Act Partial Throm Time (Ptt) (06/23/17 18:40) Urinalysis - C+S If Indicated (06/23/17 18:40) Iv Access Insert/Monitor (06/23/17 18:40) Ecg Monitoring (06/23/17 18:40) Oximetry (06/23/17 18:40) Ondansetron Inj (Zofran Inj) (06/23/17 18:45) Sodium Chlor 0.9% 1000 Ml Inj (Ns 1000 M (06/23/17 18:40) Sodium Chloride 0.9% Flush (Ns Flush) (06/23/17 18:45) Famotidine Inj (Pepcid Inj) (06/23/17 19:45) Al-Mag Hy-Si 40-40-4 Mg/Ml Liq (Mag-Al P (06/23/17 19:45) Lidocaine 2% Viscous (Xylocaine 2% Visco (06/23/17 19:45) Morphine Inj (Morphine Inj) (06/23/17 19:45) Prochlorperazine Inj (Compazine Inj) (06/23/17 19:45) Lorazepam Inj (Ativan Inj) (06/23/17 20:15) Ciprofloxacin 400 Mg Premix (Cipro 400 M (06/23/17 20:15) (Roland Mercado) Labs Laboratory Tests Test 06/23/17 18:45 White Blood Count 5.0 TH/MM3 Red Blood Count 4.66 MIL/MM3 Hemoglobin 9.4 GM/DL Hematocrit 29.1 % Mean Corpuscular Volume 62.5 FL Mean Corpuscular Hemoglobin 20.1 PG Mean Corpuscular Hemoglobin Concent 32.2 % Red Cell Distribution Width 20.7 % Platelet Count 154 TH/MM3 Mean Platelet Volume 10.6 FL Neutrophils (%) (Auto) 88.2 % Lymphocytes (%) (Auto) 10.5 % Monocytes (%) (Auto) 1.1 % Eosinophils (%) (Auto) 0.0 % Basophils (%) (Auto) 0.2 % Neutrophils # (Auto) 4.4 TH/MM3 Lymphocytes # (Auto) 0.5 TH/MM3 Monocytes # (Auto) 0.1 TH/MM3 Eosinophils # (Auto) 0.0 TH/MM3 Basophils # (Auto) 0.0 TH/MM3 CBC Comment AUTO DIFF Differential Comment AUTO DIFF CONFIRMED Platelet Estimate NORMAL Platelet Morphology Comment ENLARGED Prothrombin Time 10.5 SEC Prothromb Time International Ratio 1.0 RATIO Activated Partial Thromboplast Time 27.0 SEC Blood Urea Nitrogen 9 MG/DL Creatinine 0.97 MG/DL Random Glucose 209 MG/DL Total Protein 8.4 GM/DL Albumin 3.8 GM/DL Calcium Level 8.8 MG/DL Alkaline Phosphatase 117 U/L Aspartate Amino Transf (AST/SGOT) 99 U/L Alanine Aminotransferase (ALT/SGPT) 137 U/L Total Bilirubin 0.3 MG/DL Sodium Level 137 MEQ/L Potassium Level 3.6 MEQ/L Chloride Level 102 MEQ/L Carbon Dioxide Level 23.3 MEQ/L Anion Gap 12 MEQ/L Estimat Glomerular Filtration Rate 62 ML/MIN Lipase 294 U/L (Roland Mercado) [facility] Medical Decision Making Medical Screen Exam Complete: Yes Emergency Medical Condition: Yes Medical Record Reviewed: Yes Differential Diagnosis Nausea. Vomiting. Medication reaction. Epigastric tenderness. Narrative Course Patient seemed somewhat histrionic. Labs ordered including CBC, CMP and urinalysis. IV access is obtained patient is given 4 mg Zofran IV, and 1000 mL normal saline bolus. Patient continues to have retching without actual vomitus noted. Patient is given an additional 5 mg Compazine IV, and 1 mg of lorazepam IV.. CBC is unremarkable except for mild anemia with hemoglobin of 9.4. This is typical for the patient. Coagulation studies are unremarkable. CMP is notable for a GFR 62. Glucose 209, AST is 99, ALT is 137, total protein is 8.4. Patient is noted to have chronic elevated LFTs. Patient has had his gallbladder out. She has fatty liver disease. Urinalysis is suggestive of a urinary tract infection. Patient is given 400 mg ciprofloxacin IV. Patient is reassessed and felt to be much improved. Patient is felt stable for discharge home. She'll be continued on omeprazole 40 mg #30. Macrobid 100 mg twice a day 7 days. Phenergan 25 mg up to 4 times a day #20. Reglan 10 mg up to 3 times a day. #20. Patient is to rest and push fluids and return to emergency department if symptoms worsen. (Roland Mercado) Diagnosis Primary Impression: Vomiting Qualified Codes: R11.2 - Nausea with vomiting, unspecified Additional Impression: Medication reaction Qualified Codes: T88.7XXA - Unspecified adverse effect of drug or medicament, initial encounter Referrals: Primary Care Physician Patient Instructions: General Instructions Additional Instructions: Patient is reassessed and felt to be much improved. Patient is felt stable for discharge home. She'll be continued on omeprazole 40 mg #30. Macrobid 100 mg twice a day 7 days. Phenergan 25 mg up to 4 times a day #20. Reglan 10 mg up to 3 times a day. #20. Patient is to rest and push fluids and return to emergency department if symptoms worsen. Med/Other Pt SpecificInfo: Prescription(s) given (Roland Mercado) Scripts Omeprazole (Omeprazole) 40 Mg Cap 40 MG PO DAILY, #30 CAP 0 Refills Prov: Alba Leslie MD 06/23/17 Metoclopramide (Reglan) 10 Mg Tab 10 MG PO TIDAC, #30 TAB 0 Refills Prov: Alba Leslie MD 06/23/17 Nitrofurantoin Macrocrystal (Macrodantin) 100 Mg Cap 100 MG PO BID for 7 Days, #14 CAP 0 Refills Prov: Alba Leslie MD 06/23/17 Promethazine (Phenergan) 25 Mg Tablet 25 MG PO Q6H Y for NAUSEA OR VOMITING, #20 TAB 0 Refills Prov: Alba Leslie MD 06/23/17 Disposition: 01 DISCHARGE HOME Condition: Stable Alba Leslie MD Jun 23, 2017 18:39 Roland Mercado Jun 23, 2017 20:06
[2017-06-23] MEDS ORDERED: SODIUM CHLOR 0.9% 1000 ML INJ 1,000 ML IV SCH (18:40)
[2017-06-23] MEDS ORDERED: ONDANSETRON HCL 4 MG/2 ML VIAL IVP ONE (18:45)
[2017-06-23] MEDS ORDERED: SODIUM CHLORIDE 0.9% FLUSH 10 ML FLUSH IV FLUSH PRN (18:45)
[2017-06-23 19:00] LABS: AUTOMATED NEUTROPHIL # 4.4 TH/MM3 (1.8-7.7); BASOPHIL % 0.2 % (0.0-2.0); HEMATOCRIT 29.1 % (35.0-46.0); HEMOGLOBIN 9.4 GM/DL (11.6-15.3); LYMPH % 10.5 % (9.0-44.0); LYMPHOCYTE # 0.5 TH/MM3 (1.0-4.8); MEAN CELL VOLUME 62.5 FL (80.0-100.0); MEAN CORPUSCULAR HEMOGLOBIN 20.1 PG (27.0-34.0); MEAN CORPUSCULAR HGB CONC 32.2 % (32.0-36.0); MEAN PLATELET VOLUME 10.6 FL (7.0-11.0); MONO % 1.1 % (0.0-8.0); MONOCYTE # 0.1 TH/MM3 (0-0.9); NEUT % 88.2 % (16.0-70.0); PLATELET COUNT 154 TH/MM3 (150-450); RED BLOOD COUNT 4.66 MIL/MM3 (4.00-5.30); RED CELL DISTRIBUTION WIDTH 20.7 % (11.6-17.2)
[2017-06-23 19:17] LABS: ALBUMIN 3.8 GM/DL (3.4-5.0); AST (GOT) 99 U/L (15-37); BICARBONATE 23.3 MEQ/L (21.0-32.0); BLOOD UREA NITROGEN 9 MG/DL (7-18); CALCIUM 8.8 MG/DL (8.5-10.1); CHLORIDE 102 MEQ/L (98-107); CREATININE 0.97 MG/DL (0.50-1.00); GLOMERULAR FILTRATION RATE 62 ML/MIN (>89); GLUCOSE,RANDOM 209 MG/DL (74-106); LIPASE 294 U/L (73-393); SODIUM (NA) 137 MEQ/L (136-145)
[2017-06-23 19:18] LABS: ALT (GPT) 137 U/L (10-53)
[2017-06-23 19:20] LABS: ALKALINE PHOSPHATASE 117 U/L (45-117); TOTAL BILIRUBIN ADULT 0.3 MG/DL (0.2-1.0); TOTAL PROTEIN 8.4 GM/DL (6.4-8.2)
[2017-06-23 19:22] LABS: PROTHROMBIN TIME - PATIENT 10.5 SEC (9.8-11.6)
[2017-06-23 19:24] VITALS: BP 155/80; PULSE 120; RESP 14; O2SAT 94
[2017-06-23] MEDS ORDERED: ALUMINUM/MAGNESIUM/SIMETH 30 ML CUP PO ONE (19:45)
[2017-06-23] MEDS ORDERED: PROCHLORPERAZINE INJ 10 MG/2 ML VIAL IV PUSH ONE (19:45)
[2017-06-23] MEDS ORDERED: FAMOTIDINE 20 MG/2 ML VIAL IV PUSH ONE (19:45)
[2017-06-23] MEDS ORDERED: MORPHINE SULFATE 2 MG/ML INJ IV PUSH ONE (19:45)
[2017-06-23] MEDS ORDERED: LIDOCAINE VISCOUS 2% SOLN 15 ML UDC PO ONE (19:45)
[2017-06-23] MEDS ORDERED: CIPROFLOXACIN 400 MG PREMIX 200 ML IV ONE (20:15)
[2017-06-23] MEDS ORDERED: LORazepam 2 MG/ML VIAL IV PUSH ONE (20:15)
[2017-06-23] MEDS ORDERED: OMEP40CA2 PO (21:46)
[2017-06-23] MEDS ORDERED: PROM25TA10 PO (21:46)
[2017-06-23] MEDS ORDERED: REGL10TA5 PO (21:46)
[2017-06-23] MEDS ORDERED: MACR100C3 PO (21:46)
== END 2017-06-23 22:32 | disposition home or self-care (01) ==
LOC: NEPC 18:09
DX: R11.2 Nausea with vomiting, unspecified (principal); R10.13 Epigastric pain; T50.905A Adverse effect of unspecified drugs, medicaments and biological substances, initial encounter; E11.9 Type 2 diabetes mellitus without complications; K21.9 Gastro-esophageal reflux disease without esophagitis; I10 Essential (primary) hypertension; M79.7 Fibromyalgia; M32.9 Systemic lupus erythematosus, unspecified; J45.909 Unspecified asthma, uncomplicated; Z79.84 Long term (current) use of oral hypoglycemic drugs; Z79.899 Other long term (current) drug therapy
CPT/HCPCS: 80053; 83690; 85025; 85610; 85730; 96361; 96374; 96375; 99284; J0744; J0780; J2060; J2405; J7030

== ENCOUNTER → 2017-06-23 | Day surgery (SDC) | payer OTHER ==
[~2017-06-23] VITALS: Ht 160 cm; Wt 92.3 kg
[~2017-06-23] MED LIST changes: +ACETAMINOPHEN/HYDROcodone 325 MG/5 MG TAB ONE; +BUPIVACAINE HCL PF 0.5% 30 ML VIAL ONE; +CHLORHEXIDINE GLUCONATE 2 % 1 PACK (2 CLOTHS) TOPICAL PRN; +CHLORHEXIDINE GLUCONATE 4% SOLN 120 ML BTL TOPICAL SCH; +DEXAMETHASONE SOD PHOS 4 MG/ML VIAL ONE; +FAMOTIDINE 20 MG/2 ML VIAL ONE; +LACTATED RINGER'S 1000 ML IV PRN; +LIDOCAINE HCL 2% 50 ML VIAL ONE; +METOCLOPRAMIDE HCL 10 MG/2 ML VIAL ONE; +METOPROLOL TARTRATE 25 MG TAB PO PRN; +MIDAZOLAM HCL 2 MG/2 ML VIAL ONE; +MORPHINE SULFATE 4 MG/ML INJ ONE; +OMEP40CA2 PO; +PROM25TA10 PO; +REGL10TA5 PO; +SODIUM CHLORID 0.9% 500 ML IV PRN; +SUGAMMADEX SODIUM 200 MG/2 ML VIAL IV PUSH ONE; +VANCOMYCIN 500 MG VIAL ONE; +ZOFR4TAB3 SL; +fentaNYL CITRATE 250 MCG/5 ML AMP ONE; +methylPREDNISolone SOD SUCC 125 MG/2 ML VIAL ONE
[2017-06-23 13:20] VITALS: BP 142/82; PULSE 88; RESP 16; TEMP 98.2; O2SAT 97
--- NOTE | 2017-06-24 11:45 | MP ---
cc: CHENCHO FAIRCHILD M.D. DATE OF OPERATION 06/23/[address] Chencho Fairchild PREOPERATIVE DIAGNOSES 1. 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 2. Carpal tunnel syndrome of the left hand. POSTOPERATIVE DIAGNOSES 1. 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 2. Carpal tunnel syndrome of the left hand. PROCEDURE 1. Carpal tunnel release left hand. 2. De Quervain's syndrome release left wrist. DETAILS OF PROCEDURE The patient was placed on the operating table in the supine position. Adequate general anesthesia was administered. The patient's left upper extremity was prepped and draped in the usual sterile fashion. Time-out was called and the patient's name, location, procedure, etc., were fully confirmed. A transverse incision was made over the radial styloid and extensor compartment and it extended for approximately 1 inch in length. It was taken down through the subcutaneous tissues and bleeding points electrocauterized. Dissection was carried down to the sheath. The venous structures were retracted in a volar direction and care was taken to avoid excessive retraction on the radial side and avoidance of any injury to the superficial radial nerve. The sheath was identified over the extensor compartment and then a longitudinal incision was made through it and then this incision was carried out distally and proximally until the underlying tendons were fully free. Attention was then turned to the hand where a curved incision was made over the carpal tunnel. Bleeding points were electrocauterized. She did have a prominent superficialis muscular tissue and this was also transected down to the transverse carpal ligament. Beginning proximal to distal, a longitudinal incision was made over the ulnar side of the ligament until full decompression of the underlying flattened nerve was accomplished. The nerve was then irrigated with normal saline solution. The wound was then closed with interrupted sutures of 4-0 nylon. Attention was then again turned to the wrist where the skin was reapproximated with interrupted simple sutures of 4-0 nylon. Xeroform gauze was applied over the wound and a bulky dressing and hand dressing applied over this. The tourniquet was deflated after 24 minutes. Sponge count, needle count and instrument counts were reported to be correct x2. The estimated blood loss was nil. The patient tolerated procedure well and went to the recovery room in satisfactory condition. MD KIMBERLY Balderas/JT /11:08 AM /11:32 AM
== END | disposition home or self-care (01) ==
LOC: PHSDC 08:05
PROVIDERS: ATTEND Orthopaedic Surgery
DX: M65.4 Radial styloid tenosynovitis [de Quervain] (principal); G56.02 Carpal tunnel syndrome, left upper limb
CPT/HCPCS: 01810; 25000; 64721; J1100; J2250; J2270; J2765; J2930; J3010; J3370; J7120

== ENCOUNTER 2017-08-11 09:58 | Emergency (ER) | payer OTHER ==
[~2017-08-11] VITALS: Ht 160 cm; Wt 90.0 kg
[~2017-08-11 09:58] MED LIST changes: -IPRASOL INH; +OMEP40CA2 PO; +REGL10TA5 PO; -ZOFR4TAB PO
[2017-08-11 10:10] VITALS: BP 130/83; PULSE 92; RESP 20; TEMP 98.4; O2SAT 100
--- NOTE | 2017-08-11 10:27 | PD ---
HPI Chief Complaint: Anxiety Time Seen by Provider: 10:19 Travel History International Travel<30 days: No Contact w/Intl Traveler<30days: No Traveled to known affect area: No History of Present Illness HPI after an argument with neighbors, patient started to feel anxious, and jitery along with sharp cp. cp, sharp, worse with movement of her arms, points to costochondral region, 09/19. ems transported patient to ED for further evaluation....per ems police were present at her home and report been filed. patient states no alleviating factors. patient denies assoc factors such as fever/rash/cough/backpain/abdpain/n/v/d/ at this time. all:many pmhx sig for dm, lupus, fibromyalgia, anxiety. PFSH Past Medical History Hx Anticoagulant Therapy: Yes Asthma: Yes Autoimmune Disease: Yes (LUPUS) Blood Disorders: No Anxiety: Yes Depression: No Heart Rhythm Problems: No Cancer: No Cardiovascular Problems: No High Cholesterol: No Chest Pain: No Congestive Heart Failure: No COPD: No Cerebrovascular Accident: Yes Diabetes: Yes Patient Takes Glucophage: Yes Diminished Hearing: No Endocrine: Yes Fibromyalgia: Yes Gastrointestinal Disorders: Yes (GASTRITIS, GASTRPORESIS) GERD: Yes Genitourinary: No Hepatitis: No Hiatal Hernia: Yes (POSSIBLE) Hypertension: Yes Immune Disorder: No Implanted Vascular Access Dvce: No Medical other: Yes (ANEMIA) Musculoskeletal: Yes (BIALTERAL CARPAL TUNNEL) Neurologic: Yes (FIBROMYALGIA, MINI STROKE) Psychiatric: No Reproductive: No Respiratory: Yes (ASTHMA ) Immunizations Current: Yes Sleep Apnea: No Thyroid Disease: No ?: Not LMP: 07/23/17 : 2 Para: 2 Miscarriage: 0 : 0 Past Surgical History Abdominal Surgery: Yes (CHOLECYSTECTOMY) Cardiac Surgery: No Section: Yes (X2) Cholecystectomy: Yes Ear Surgery: No Endocrine Surgery: No Eye Surgery: No Genitourinary Surgery: No Gynecologic Surgery: Yes ( X 2) Neurologic Surgery: No Oral Surgery: Yes (WISDOM TEETH) Thoracic Surgery: No Other Surgery: Yes (tendonitis - R. HAND) Social History Alcohol Use: No Tobacco Use: No Substance Use: No Allergies-Medications (Allergen,Severity, Reaction): Coded Allergies: broccoli (Verified Allergy, Severe, Diarrhea, 08/11/17) RASH cephalexin (Verified Allergy, Severe, Diarrhea, 08/11/17) ALSO RASH iodine (Verified Allergy, Severe, Anaphylaxis, 08/11/17) potassium iodide (Verified Allergy, Severe, Anaphylaxis, 08/11/17) povidone-iodine (Verified Allergy, Severe, Anaphylaxis, 08/11/17) shellfish derived (Verified Allergy, Severe, Anaphylaxis, 08/11/17) sodium iodide (Verified Allergy, Severe, Anaphylaxis, 08/11/17) sodium iodide (Verified Allergy, Severe, Anaphylaxis, 08/11/17) theophylline (Verified Allergy, Severe, Anaphylaxis, 08/11/17) aminophylline (Verified Allergy, Intermediate, MAKES HER HYPER ELEVATES BP , 08/11/17) naproxen (Verified Allergy, Intermediate, Rash, 08/11/17) penicillin G (Verified Allergy, Intermediate, RASH, 08/11/17) aminopyrine (Verified Allergy, Unknown, 08/11/17) DENIES ALLERGY azathioprine (Verified Allergy, Unknown, 08/11/17) diphenhydramine (Verified Adverse Reaction, Mild, palpitations, 08/11/17) pushed too quickly ibuprofen (Verified Adverse Reaction, Mild, 08/11/17) stomach pain Uncoded Allergies: Eggplant (Allergy, Intermediate, 10/09/16) AMRNOHILSON (Adverse Reaction, Severe, 10/09/16) .. Reported Meds & Prescriptions Reported Meds & Active Scripts Active Omeprazole 40 Mg Cap 40 Mg PO DAILY Macrodantin (Nitrofurantoin Macrocrystal) 100 Mg Cap 100 Mg PO BID 7 Days Flovent Hfa 12 GM Inh (Fluticasone Propionate) 220 Mcg/Act Inh 1 Puff INH BID Use daily at the same time. Ventolin Hfa 18 GM Inh (Albuterol Sulfate) 90 Mcg/Act Aer 2 Puff INH Q4-6H PRN Albuterol Neb (Albuterol Sulfate) 2.5 Mg/3 Ml Neb 2.5 Mg NEB Q4HR NEB PRN Reported Amitriptyline (Amitriptyline HCl) 10 Mg Tab 10 Mg PO HS Pantoprazole (Pantoprazole Sodium) 40 Mg Tab 40 Mg PO DAILY PRN Lyrica (Pregabalin) 50 Mg Cap 50 Mg PO TID Metoclopramide (Metoclopramide HCl) 10 Mg Tab 10 Mg PO TIDAC Lisinopril 20 Mg Tab 20 Mg PO DAILY Chlorthalidone 25 Mg Tab 12.5 Mg PO DAILY Mobic (Meloxicam) 15 Mg Tab 15 Mg PO DAILY Metformin (Metformin HCl) 1,000 Mg Tab 1,000 Mg PO BIDPC PRN With meals Duloxetine DR (Duloxetine HCl) 20 Mg Capdr 20 Mg PO DAILY Physical Exam Narrative GENERAL: SKIN: Warm and dry. HEAD: Atraumatic. Normocephalic. EYES: Pupils equal and round. No scleral icterus. No injection or drainage. ENT: No nasal bleeding or discharge. Mucous membranes pink and moist. NECK: Trachea midline. No JVD. CARDIOVASCULAR: Regular rate and rhythm. RESPIRATORY: No accessory muscle use. Clear to auscultation. Breath sounds equal bilaterally. GASTROINTESTINAL: Abdomen soft, non-tender, nondistended. MUSCULOSKELETAL: Extremities without clubbing, cyanosis, or edema. No obvious deformities. NEUROLOGICAL: Awake and alert. No obvious cranial nerve deficits. Motor grossly within normal limits. Five out of 5 muscle strength in the arms and legs. Normal speech. PSYCHIATRIC: Appropriate mood and affect; insight and judgment normal. Data Data Last Documented VS Vital Signs Date Time Temp Pulse Resp B/P (MAP) Pulse Ox O2 Delivery O2 Flow Rate FiO2 08/11/17 10:10 98.4 92 20 130/83 (99) 100 Orders Orders Electrocardiogram (08/11/17 10:19) Complete Blood Count With Diff (08/11/17 10:19) Comprehensive Metabolic Panel (08/11/17 10:19) Troponin I (08/11/17 10:19) B-Type Natriuretic Peptide (08/11/17 10:19) Lipase (08/11/17 10:19) Chest, Single Ap (08/11/17 10:19) Ed Urine Pregnancytest Poc (08/11/17 10:19) Drug Screen, Random Urine (08/11/17 10:19) Alcohol (Ethanol) (08/11/17 10:19) Salicylates (Aspirin) (08/11/17 10:19) Tylenol (Acetaminophen) (08/11/17 10:19) Lorazepam Inj (Ativan Inj) (08/11/17 10:30) Labs Laboratory Tests Test 08/11/17 10:30 White Blood Count 7.3 TH/MM3 Red Blood Count 5.08 MIL/MM3 Hemoglobin 9.8 GM/DL Hematocrit 31.0 % Mean Corpuscular Volume 61.1 FL Mean Corpuscular Hemoglobin 19.3 PG Mean Corpuscular Hemoglobin Concent 31.6 % Red Cell Distribution Width 22.2 % Platelet Count 168 TH/MM3 Mean Platelet Volume 9.7 FL Neutrophils (%) (Auto) 65.9 % Lymphocytes (%) (Auto) 23.1 % Monocytes (%) (Auto) 6.1 % Eosinophils (%) (Auto) 4.1 % Basophils (%) (Auto) 0.8 % Neutrophils # (Auto) 4.8 TH/MM3 Lymphocytes # (Auto) 1.7 TH/MM3 Monocytes # (Auto) 0.4 TH/MM3 Eosinophils # (Auto) 0.3 TH/MM3 Basophils # (Auto) 0.1 TH/MM3 CBC Comment AUTO DIFF Differential Comment AUTO DIFF CONFIRMED Platelet Estimate NORMAL Platelet Morphology Comment NORMAL Ovalocytes 1+ Blood Urea Nitrogen 9 MG/DL Creatinine 0.63 MG/DL Random Glucose 101 MG/DL Total Protein 7.9 GM/DL Albumin 3.9 GM/DL Calcium Level 8.9 MG/DL Alkaline Phosphatase 111 U/L Aspartate Amino Transf (AST/SGOT) 78 U/L Alanine Aminotransferase (ALT/SGPT) 97 U/L Total Bilirubin 0.5 MG/DL Sodium Level 138 MEQ/L Potassium Level 3.7 MEQ/L Chloride Level 102 MEQ/L Carbon Dioxide Level 25.8 MEQ/L Anion Gap 10 MEQ/L Estimat Glomerular Filtration Rate 102 ML/MIN Troponin I LESS THAN 0.02 NG/ML B-Type Natriuretic Peptide 11 PG/ML Lipase 320 U/L Salicylates Level LESS THAN 1.7 MG/DL Urine Opiates Screen NEG Acetaminophen Level LESS THAN 2.0 MCG/ML Urine Barbiturates Screen NEG Urine Amphetamines Screen NEG Urine Benzodiazepines Screen NEG Urine Cocaine Screen NEG Urine Cannabinoids Screen NEG Ethyl Alcohol Level LESS THAN 3 MG/DL MDM Medical Decision Making Medical Screen Exam Complete: Yes Emergency Medical Condition: Yes Medical Record Reviewed: Yes Interpretation(s) nsr, 93 bpm, normal intervals, no stemi pattern noted pulse ox pleth wave excellent, 97% on ra which is normal interpretation Differential Diagnosis stress reaction v anemia v dehydration v electrolyte abnl Narrative Course cbc does not show leukocytosis, or left shift but it does show mild anemia 9. not requiring any treatment. normal electrolyte, normal /kidney/pancreas function with mild elevation of lft' s that should be followed but no major action to be taken. negative troponin, neg asa/tyl/etoh cxr neg for fx/ptx/pulm edema or pna neg tox screen Diagnosis Primary Impression: Stress reaction Patient Instructions: Anxiety (ED), General Instructions Disposition: 01 DISCHARGE HOME Condition: Stable Vini Hicks MD Aug 11, 2017 10:27
[2017-08-11] MEDS ORDERED: LORazepam 2 MG/ML VIAL IV PUSH ONE (10:30)
[2017-08-11 10:50] LABS: AUTOMATED NEUTROPHIL # 4.8 TH/MM3 (1.8-7.7); BASOPHIL # 0.1 TH/MM3 (0-0.2); BASOPHIL % 0.8 % (0.0-2.0); EOSINOPHIL # 0.3 TH/MM3 (0-0.4); EOSINOPHIL % 4.1 % (0.0-4.0); HEMOGLOBIN 9.8 GM/DL (11.6-15.3); LYMPH % 23.1 % (9.0-44.0); LYMPHOCYTE # 1.7 TH/MM3 (1.0-4.8); MEAN CELL VOLUME 61.1 FL (80.0-100.0); MEAN CORPUSCULAR HEMOGLOBIN 19.3 PG (27.0-34.0); MEAN CORPUSCULAR HGB CONC 31.6 % (32.0-36.0); MEAN PLATELET VOLUME 9.7 FL (7.0-11.0); MONO % 6.1 % (0.0-8.0); MONOCYTE # 0.4 TH/MM3 (0-0.9); NEUT % 65.9 % (16.0-70.0); PLATELET COUNT 168 TH/MM3 (150-450); RED BLOOD COUNT 5.08 MIL/MM3 (4.00-5.30); RED CELL DISTRIBUTION WIDTH 22.2 % (11.6-17.2); WHITE BLOOD COUNT 7.3 TH/MM3 (4.0-11.0)
[2017-08-11 10:56] LABS: ALBUMIN 3.9 GM/DL (3.4-5.0); ALT (GPT) 97 U/L (10-53); AST (GOT) 78 U/L (15-37); BICARBONATE 25.8 MEQ/L (21.0-32.0); BLOOD UREA NITROGEN 9 MG/DL (7-18); CALCIUM 8.9 MG/DL (8.5-10.1); CHLORIDE 102 MEQ/L (98-107); CREATININE 0.63 MG/DL (0.50-1.00); GLOMERULAR FILTRATION RATE 102 ML/MIN (>89); GLUCOSE,RANDOM 101 MG/DL (74-106); SODIUM (NA) 138 MEQ/L (136-145)
--- NOTE | 2017-08-11 10:58 | RADRPT ---
EXAM DATE/TIME: 08/11/2017 10:45 [facility] COMPARISON: CHEST SINGLE AP, March 28, 2017, 18:49. INDICATIONS : Chest pain, shortness of breath, and lightheaded. MEDICAL HISTORY : Anxiety. Asthma. SURGICAL HISTORY : None. ENCOUNTER: Initial ACUITY: 1 day PAIN SCORE: 5/10 LOCATION: Bilateral chest FINDINGS: A single view of the chest demonstrates the lungs to be symmetrically aerated without evidence of mas s, infiltrate or effusion. The cardiomediastinal contours are unremarkable. Osseous structures are intact. CONCLUSION: 1. No acute cardiopulmonary disease. Edd Aguiar MD on August 11, 2017 at 10:57 Board Certified Radiologist. This report was verified electronically.
[2017-08-11 11:00] VITALS: BP 167/68; PULSE 82; RESP 16; O2SAT 99
[2017-08-11 11:07] LABS: ALKALINE PHOSPHATASE 111 U/L (45-117); TOTAL BILIRUBIN ADULT 0.5 MG/DL (0.2-1.0); TOTAL PROTEIN 7.9 GM/DL (6.4-8.2); TROPONIN I LESS THAN 0.02 NG/ML (0.02-0.05)
[2017-08-11 11:13] LABS: ACETAMINOPHEN LESS THAN 2.0 MCG/ML (10.0-30.0)
[2017-08-11 11:35] LABS: OVALOCYTES 1+ (NORMAL)
[2017-08-11 12:00] VITALS: BP 162/65; PULSE 84; RESP 16; O2SAT 99
[2017-08-11 12:57] VITALS: BP 162/64
--- NOTE | 2017-08-12 10:13 | EKG ---
Date Performed: 08/11/2017 Time Performed: 10:33:29 PTAGE: 47 years EKG: Sinus rhythm NORMAL ECG PREVIOUS TRACING : 03/14/2017 01.33 DOCTOR: Jonnathan Gonsalez Interpretating Date/Time 08/12/2017 10:11:49
[2017-08-18] MEDS ORDERED: NOVORP2 SQ (09:48)
== END 2017-08-11 13:17 | disposition home or self-care (01) ==
LOC: NEPD 09:58
DX: F43.9 Reaction to severe stress, unspecified (principal); J45.909 Unspecified asthma, uncomplicated; M79.7 Fibromyalgia; E11.9 Type 2 diabetes mellitus without complications; I10 Essential (primary) hypertension; Z86.73 Personal history of transient ischemic attack (TIA), and cerebral infarction without residual deficits; Z88.6 Allergy status to analgesic agent; Z88.0 Allergy status to penicillin; Z91.013 Allergy to seafood; Z88.8 Allergy status to other drugs, medicaments and biological substances; Z91.018 Allergy to other foods
CPT/HCPCS: 71045; 80053; 80307; 83690; 83880; 84484; 84703; 85025; 93005; 96374; 99285; J2060

== ENCOUNTER → 2017-08-18 | Day surgery (SDC) | payer OTHER ==
[~2017-08-18] VITALS: Ht 160 cm; Wt 89.0 kg
[~2017-08-18] MED LIST changes: +*PROMETHAZINE 25 MG/ML VIAL PERIprocedural use ONLY ONE; +ACETAMINOPHEN/HYDROcodone 325 MG/5 MG TAB PO PRN; +APREPITANT 40 MG CAP ONE; +CHLORHEXIDINE GLUCONATE 4% SOLN 120 ML BTL TOPICAL SCH; -COLA100C5 PO; +FAMOTIDINE 20 MG/2 ML VIAL ONE; +KETOROLAC TROMETHAMINE 30 MG/ML (IVP) VIAL IM PRN; +LACTATED RINGER'S 1000 ML IV PRN; +METOPROLOL TARTRATE 25 MG TAB PO PRN; +MIDAZOLAM HCL 2 MG/2 ML VIAL ONE; +NOVORP2 SQ; +ONDANSETRON HCL 4 MG/2 ML VIAL IV PUSH PRN; -PROM25TA10 PO; -REGL10TA5 PO; +SODIUM CHLORID 0.9% 500 ML IV PRN; -ZOFR4TAB3 SL
[2017-08-18 12:08] VITALS: PULSE 122
--- NOTE | 2017-08-18 12:58 | MP ---
cc: Chencho Mckinley MD DATE OF OPERATION: 08/18/2017 DATE OF OPERATION: 08/18/2017 SURGEON: Chencho Mckinley MD PREOPERATIVE DIAGNOSIS: Carpal tunnel syndrome of the right hand. POSTOPERATIVE DIAGNOSIS: Carpal tunnel syndrome of the right hand. PROCEDURE PERFORMED: Carpal tunnel release. DETAILS OF PROCEDURE: While the patient was on the operating room stretcher in the supine position, the right hand and upper extremity were fully prepped and draped in the usual sterile fashion. An Esmarch bandage was applied to the upper extremity and a pneumatic tourniquet was inflated to 250. A timeout was previously called and the patient's name, procedure, location, etc. were fully confirmed. A curved incision was made over the carpal tunnel and extended for approximately 1.5 inches. The wound was taken down through the subcutaneous tissues and bleedings points electrocauterized. Using sharp and blunt dissection, the superficial muscular layer was retracted and partially transected, exposing the underlying transverse carpal ligament. Beginning first proximal to distal along the ulnar border, a longitudinal incision was made with scissors, being careful to avoid any undo pressure or retraction of the underlying median nerve. We encountered the medial nerve proximally and just distal to the proximal portion of the wrist, we noted an hour glass type deformity of the medial nerve, which was extremely flattened and constricted. This took meticulous release utilizing a tenotomy scissors along the ulnar border of the medial nerve. Transection was carried out distally until complete relief of stenosis was accomplished. The nerve was irrigated with warm normal saline solution. Closure was carried out with interrupted sutures of 4-0 nylon. Xeroform gauze was applied over the wound, followed by application of a hand dressing in a bulky fashion. The tourniquet was deflated and examination of the fingers revealed adequate return of circulation. The patient tolerated the procedure well and went to the recovery room in satisfactory condition. Sponge count and needle counts were reported correct time x 2. Estimated blood loss was nil. Chencho Mckinley MD KIMBERLY/KD , 11:54 AM , 12:56 PM
[2017-08-18 14:00] VITALS: BP 109/64; PULSE 101; RESP 16; TEMP 98.7; O2SAT 96
== END | disposition home or self-care (01) ==
LOC: PHSDC 08:47
PROVIDERS: ATTEND Orthopaedic Surgery
DX: G56.01 Carpal tunnel syndrome, right upper limb (principal); E11.9 Type 2 diabetes mellitus without complications
CPT/HCPCS: 01810; 64721; 82948; J1885; J2250; J2550; J3010; J7120; J8501

== ENCOUNTER 2017-08-23 18:30 | Emergency (ER) | payer OTHER ==
[~2017-08-23] VITALS: Ht 160 cm; Wt 90.0 kg
[~2017-08-23 18:30] MED LIST changes: -*PROMETHAZINE 25 MG/ML VIAL PERIprocedural use ONLY ONE; -ACETAMINOPHEN/HYDROcodone 325 MG/5 MG TAB PO PRN; -APREPITANT 40 MG CAP ONE; -CHLORHEXIDINE GLUCONATE 4% SOLN 120 ML BTL TOPICAL SCH; -FAMOTIDINE 20 MG/2 ML VIAL ONE; -KETOROLAC TROMETHAMINE 30 MG/ML (IVP) VIAL IM PRN; -LACTATED RINGER'S 1000 ML IV PRN; -MACR100C3 PO; -METO10TA PO; -METOPROLOL TARTRATE 25 MG TAB PO PRN; -MIDAZOLAM HCL 2 MG/2 ML VIAL ONE; -OMEP40CA2 PO; -ONDANSETRON HCL 4 MG/2 ML VIAL IV PUSH PRN; -PANT40TA3 PO; -SODIUM CHLORID 0.9% 500 ML IV PRN
[2017-08-23 19:16] VITALS: BP 188/109; PULSE 121; RESP 16; TEMP 98.7; O2SAT 98
[2017-08-23] MEDS ORDERED: HYDROmorphone HCL PF 1 MG/ML VIAL IM ONE ×2 (21:15→21:30)
[2017-08-23] MEDS ORDERED: LORazepam 2 MG/ML VIAL IM ONE ×2 (21:15→21:30)
--- NOTE | 2017-08-23 21:20 | PD ---
HPI Chief Complaint: Medical Clearance Time Seen by Provider: 21:03 Travel History International Travel<30 days: No Contact w/Intl Traveler<30days: No Traveled to known affect area: No History of Present Illness HPI 47-year-old female resents emergency department with complains of pain in her right wrist and decreased sensation in her thumb. She states that she is status post carpal tunnel release this past Monday by Dr. Billy Mckinley. The patient states that she has an appointment to see her doctor on Monday. She states that her pain intensified around 5 o'clock this afternoon. She takes hydrocodone 3 times a day for pain. She states that she did not have any complications after her surgery. She did do some additional activities around her house today. PFSH Past Medical History Hx Anticoagulant Therapy: Yes Asthma: Yes Autoimmune Disease: Yes (LUPUS) Blood Disorders: No Anxiety: Yes Depression: No Heart Rhythm Problems: No Cancer: No Cardiovascular Problems: No High Cholesterol: No Chest Pain: No Congestive Heart Failure: No COPD: No Cerebrovascular Accident: Yes Diabetes: Yes (TYPE 2 ) Patient Takes Glucophage: Yes Diminished Hearing: No Endocrine: Yes (TYPE 2 DM) Fibromyalgia: Yes Gastrointestinal Disorders: Yes (GASTRITIS, GASTRPORESIS, GERD) GERD: Yes Genitourinary: No Hepatitis: No Hiatal Hernia: No Hypertension: Yes Immune Disorder: No Implanted Vascular Access Dvce: No Medical other: Yes (ANEMIA) Musculoskeletal: Yes (BIALTERAL CARPAL TUNNEL) Neurologic: Yes (FIBROMYALGIA, MINI STROKE, LIN/MIGRAINES) Psychiatric: Yes (ANXIETY) Reproductive: No Respiratory: Yes (ASTHMA ) Immunizations Current: Yes Sleep Apnea: No Thyroid Disease: No ?: Not : 2 Para: 2 Miscarriage: 0 : 0 Past Surgical History Abdominal Surgery: Yes (CHOLECYSTECTOMY) AICD: No Cardiac Surgery: No Section: Yes (X2) Cholecystectomy: Yes Ear Surgery: No Endocrine Surgery: No Eye Surgery: No Genitourinary Surgery: No Gynecologic Surgery: Yes ( X 2) Joint Replacement: No Neurologic Surgery: No Oral Surgery: Yes (WISDOM TEETH) Pacemaker: No Thoracic Surgery: No Other Surgery: Yes (tendonitis - R. HAND) Social History Alcohol Use: No Tobacco Use: No Substance Use: No Allergies-Medications (Allergen,Severity, Reaction): Coded Allergies: broccoli (Verified Allergy, Severe, Diarrhea, 08/18/17) RASH cephalexin (Verified Allergy, Severe, Diarrhea, 08/18/17) ALSO RASH iodine (Verified Allergy, Severe, Anaphylaxis, 08/18/17) potassium iodide (Verified Allergy, Severe, Anaphylaxis, 08/18/17) povidone-iodine (Verified Allergy, Severe, Anaphylaxis, 08/18/17) shellfish derived (Verified Allergy, Severe, Anaphylaxis, 08/18/17) sodium iodide (Verified Allergy, Severe, Anaphylaxis, 08/18/17) sodium iodide (Verified Allergy, Severe, Anaphylaxis, 08/18/17) theophylline (Verified Allergy, Severe, Anaphylaxis, 08/18/17) aminophylline (Verified Allergy, Intermediate, MAKES HER HYPER ELEVATES BP , 08/18/17) naproxen (Verified Allergy, Intermediate, Rash, 08/18/17) penicillin G (Verified Allergy, Intermediate, RASH, 08/18/17) aminopyrine (Verified Allergy, Unknown, 08/18/17) DENIES ALLERGY azathioprine (Verified Allergy, Unknown, 08/18/17) diphenhydramine (Verified Adverse Reaction, Mild, palpitations, 08/18/17) pushed too quickly ibuprofen (Verified Adverse Reaction, Mild, 08/18/17) stomach pain Uncoded Allergies: Eggplant (Allergy, Intermediate, 10/09/16) AMRNOHILSON (Adverse Reaction, Severe, 10/09/16) .. Reported Meds & Prescriptions Reported Meds & Active Scripts Active Flovent Hfa 12 GM Inh (Fluticasone Propionate) 220 Mcg/Act Inh 1 Puff INH BID Use daily at the same time. Ventolin Hfa 18 GM Inh (Albuterol Sulfate) 90 Mcg/Act Aer 2 Puff INH Q4-6H PRN Albuterol Neb (Albuterol Sulfate) 2.5 Mg/3 Ml Neb 2.5 Mg NEB Q4HR NEB PRN Reported Novolin R Inj (Insulin Human Regular) 1,000 Unit/10 Ml Vial 0 SQ DIRECTED Sliding Scale As Directed. Amitriptyline (Amitriptyline HCl) 10 Mg Tab 10 Mg PO HS Lyrica (Pregabalin) 50 Mg Cap 100 Mg PO HS Lisinopril 20 Mg Tab 20 Mg PO DAILY Chlorthalidone 25 Mg Tab 12.5 Mg PO DAILY Mobic (Meloxicam) 15 Mg Tab 15 Mg PO DAILY Metformin (Metformin HCl) 1,000 Mg Tab 1,000 Mg PO BIDPC PRN With meals Duloxetine DR (Duloxetine HCl) 20 Mg Capdr 20 Mg PO DAILY Review of Systems Except as stated in HPI: all other systems reviewed are Neg Physical Exam Narrative GENERAL: This is a well-nourished, well-developed patient, in no apparent distress. SKIN: No rashes, ecchymoses or lesions. Warm and dry. HEAD: Atraumatic. Normocephalic. EYES: PERRL, EOMI, no discharge or injection. No scleral icterus. EARS: Clear NOSE: Nasal turbinates appear normal. THROAT: Mucosa pink and moist. Airway patent. NECK: Trachea midline. supple, moves head freely. LUNGS: Clear to auscultation. CV: Regular in rhythm. ABDOMEN: Soft nontender. EXT: No clubbing cyanosis or edema. Examination of the right hand reveals a healing's incision. There is no erythema, warmth or edema. Patient is able to extend and flex her fingers without eliciting pain in her wrist. She has intact gross sensation in all her fingers except for the ulnar aspect of her thumb distal phalanx. She states that she has decreased sensation. Oxygen saturation on all of her fingers are a 100%. She has intact cap refill. She has intact median/ulnar/radial nerves. Data Data Last Documented VS Vital Signs Date Time Temp Pulse Resp B/P (MAP) Pulse Ox O2 Delivery O2 Flow Rate FiO2 08/23/17 19:16 98.7 121 16 188/109 (135) 98 Orders Orders Lorazepam Inj (Ativan Inj) (08/23/17 21:15) Hydromorphone Pf Inj (Dilaudid Pf Inj) (08/23/17 21:15) [facility] Medical Decision Making Medical Screen Exam Complete: Yes Emergency Medical Condition: Yes Medical Record Reviewed: Yes Differential Diagnosis Differential diagnosis: Hematoma, abscess, contusion, neuropraxia, postoperative pain Narrative Course The patient's exam is reassuring. I see no sign of any wound infection. I see no sign of acute nerve entrapment. Patient is given Dilaudid 1 mg IM and Ativan 1 mg IM. Patient is advised to keep her hand elevated above her heart at all times. She is instructed to follow-up with Dr. Mckinley first thing tomorrow morning for recheck. Diagnosis Primary Impression: Postop right hand pain Patient Instructions: General Instructions, Narcotic given in the ED Additional Instructions: Rest. Elevation of the heart at all times. Follow-up with Dr. Mckinley tomorrow morning at 9:00. Med/Other Pt SpecificInfo: No Meds Exist/No RX given Disposition: 01 DISCHARGE HOME Condition: Stable Je Vergara Aug 23, 2017 21:20
[2017-08-23] MEDS ORDERED: HYDROmorphone HCL PF 2 MG/ML VIAL IM ONE (21:30)
== END 2017-08-23 21:50 | disposition home or self-care (01) ==
LOC: NEPD 18:30
DX: G89.18 Other acute postprocedural pain (principal); R20.2 Paresthesia of skin; Z98.890 Other specified postprocedural states; I10 Essential (primary) hypertension; E11.9 Type 2 diabetes mellitus without complications; K21.9 Gastro-esophageal reflux disease without esophagitis; J45.909 Unspecified asthma, uncomplicated; F41.9 Anxiety disorder, unspecified; Z79.4 Long term (current) use of insulin; Z86.73 Personal history of transient ischemic attack (TIA), and cerebral infarction without residual deficits; Z87.19 Personal history of other diseases of the digestive system; Z87.39 Personal history of other diseases of the musculoskeletal system and connective tissue; Z86.69 Personal history of other diseases of the nervous system and sense organs
CPT/HCPCS: 96372; 99283; J1170; J2060

== ENCOUNTER 2017-08-29 14:29 | Inpatient (IN) | payer OTHER ==
[2017-08-29 15:02] VITALS: BP 150/84; PULSE 107; RESP 24; TEMP 99.1; O2SAT 96
[2017-08-29] MEDS ORDERED: SODIUM CHLOR 0.9% 1000 ML INJ 1,000 ML IV ONE (19:15)
[2017-08-29] MEDS ORDERED: ONDANSETRON HCL 4 MG/2 ML VIAL IV ONE (19:15)
--- NOTE | 2017-08-29 19:17 | PD ---
HPI Chief Complaint: Chest Pain Time Seen by Provider: 19:13 Travel History International Travel<30 days: No Contact w/Intl Traveler<30days: No Traveled to known affect area: No History of Present Illness HPI The patient is a 47 year old female who presents to the [facility] emergency department with a history of multiple concerns that she presents with today in the emergency department. Her #1 concern is that she has had a history of abdominal pain that began around 1:30 PM today. She reports that the pain is in bilateral upper quadrants of the abdomen. She reports that shortly after the pain began just sharp in character she began to have nausea and vomiting. She reports that she has had nausea and vomiting 3. The last time that she vomited it appeared to have some blood in it. She denies having any blood in her stool. She reports that she does have chronic diarrhea that comes and goes and is been present for years. She did move her bowels 3 times today, however she reports that the stool is brown in color. She denies having any black or tarry stools. She denies having any known fevers. She reports that she last checked her blood sugar this morning and it was 169. She took her usual metformin 1000 mg this morning. She reports that she does have sliding scale insulin when her blood sugar is high, however she has not required its use for an extended period of time. Her primary care physician is Dr. Collazo. The patient reports that she has a history of acid reflux and gastroparesis. She is not on any nausea medication at home. She reports that her Prilosec that was previously covered by her insurance is no longer covered and she has been off of it for the last month. She denies having a local [facility]. The patient reports that at the onset of the nausea vomiting she also began to have a headache along the left side of the posterior head, left shoulder and left arm aching. She denies having any chest pain or pressure. She denies having any shortness of breath. She does report having on review of systems, cough and congestion for the last week. She reports that her cough has been productive of clear sputum. The patient reports that she does have a history of anemia and is on an iron supplement. She denies having any dysuria, however she reports having chronic urinary frequency. Otherwise on review of systems, the patient denies having any neck stiffness, or neurologic symptoms. PFSH Past Medical History Narrative Medical The patient's past medical history is significant for acid reflux, diabetes mellitus diagnosed in 2009, anemia, gastroparesis, hypertension, carpal tunnel syndrome, systemic lupus erythematosus, anxiety disorder. Hx Anticoagulant Therapy: Yes Asthma: Yes Autoimmune Disease: Yes (LUPUS) Blood Disorders: No Anxiety: Yes Depression: No Heart Rhythm Problems: No Cancer: No Cardiovascular Problems: No High Cholesterol: No Chest Pain: No Congestive Heart Failure: No COPD: No Cerebrovascular Accident: Yes Diabetes: Yes Diminished Hearing: No Endocrine: Yes (TYPE 2 DM) Fibromyalgia: Yes Gastrointestinal Disorders: Yes (GASTRITIS, GASTRPORESIS, GERD) GERD: Yes Genitourinary: No Hepatitis: No Hiatal Hernia: No Hypertension: Yes Immune Disorder: No Implanted Vascular Access Dvce: No Musculoskeletal: Yes (BIALTERAL CARPAL TUNNEL) Neurologic: Yes (FIBROMYALGIA, MINI STROKE, LIN/MIGRAINES) Psychiatric: Yes (ANXIETY) Reproductive: No Respiratory: Yes Immunizations Current: Yes Sleep Apnea: No Thyroid Disease: No LMP: 08/26/17 : 2 Para: 2 Miscarriage: 0 : 0 Past Surgical History Narrative Surgical The patient's past surgical history is significant for 2 prior C-sections, cholecystectomy, hand surgery. Abdominal Surgery: Yes (CHOLECYSTECTOMY) AICD: No Cardiac Surgery: No Section: Yes (X2) Cholecystectomy: Yes Ear Surgery: No Endocrine Surgery: No Eye Surgery: No Genitourinary Surgery: No Gynecologic Surgery: Yes ( X 2) Joint Replacement: No Neurologic Surgery: No Oral Surgery: Yes (WISDOM TEETH) Pacemaker: No Thoracic Surgery: No Other Surgery: Yes (tendonitis - R. HAND) Social History Alcohol Use: No Tobacco Use: No Substance Use: No Allergies-Medications (Allergen,Severity, Reaction): Coded Allergies: broccoli (Verified Allergy, Severe, Diarrhea, 08/29/17) RASH cephalexin (Verified Allergy, Severe, Diarrhea, 08/29/17) ALSO RASH iodine (Verified Allergy, Severe, Anaphylaxis, 08/29/17) potassium iodide (Verified Allergy, Severe, Anaphylaxis, 08/29/17) povidone-iodine (Verified Allergy, Severe, Anaphylaxis, 08/29/17) shellfish derived (Verified Allergy, Severe, Anaphylaxis, 08/29/17) sodium iodide (Verified Allergy, Severe, Anaphylaxis, 08/29/17) sodium iodide (Verified Allergy, Severe, Anaphylaxis, 08/29/17) theophylline (Verified Allergy, Severe, Anaphylaxis, 08/29/17) aminophylline (Verified Allergy, Intermediate, MAKES HER HYPER ELEVATES BP , 08/29/17) naproxen (Verified Allergy, Intermediate, Rash, 08/29/17) penicillin G (Verified Allergy, Intermediate, RASH, 08/29/17) aminopyrine (Verified Allergy, Unknown, 08/29/17) DENIES ALLERGY azathioprine (Verified Allergy, Unknown, 08/29/17) diphenhydramine (Verified Adverse Reaction, Mild, palpitations, 08/29/17) pushed too quickly ibuprofen (Verified Adverse Reaction, Mild, 08/29/17) stomach pain Uncoded Allergies: Eggplant (Allergy, Intermediate, 10/09/16) AMRNOHILSON (Adverse Reaction, Severe, 10/09/16) .. Reported Meds & Prescriptions Reported Meds & Active Scripts Active Flovent Hfa 12 GM Inh (Fluticasone Propionate) 220 Mcg/Act Inh 1 Puff INH BID Use daily at the same time. Ventolin Hfa 18 GM Inh (Albuterol Sulfate) 90 Mcg/Act Aer 2 Puff INH Q4-6H PRN Albuterol Neb (Albuterol Sulfate) 2.5 Mg/3 Ml Neb 2.5 Mg NEB Q4HR NEB PRN Reported Clonidine (Clonidine HCl) 0.1 Mg Tab 0.1 Mg PO DAILY Atrovent HFA 12.9 GM Inh (Ipratropium Spruce) 17 Mcg/Actuation Aer 2 Puff INH Q6HR PRN Lisinopril 40 Mg Tab 40 Mg PO DAILY Lorazepam 0.5 Mg Tab Unknown Dose PO DAILY PRN Novolin R Inj (Insulin Human Regular) 1,000 Unit/10 Ml Vial 0 SQ DIRECTED Sliding Scale As Directed. Lyrica (Pregabalin) 50 Mg Cap 100 Mg PO HS Mobic (Meloxicam) 15 Mg Tab 15 Mg PO DAILY Metformin (Metformin HCl) 1,000 Mg Tab 1,000 Mg PO BIDPC PRN With meals Duloxetine DR (Duloxetine HCl) 20 Mg Capdr 20 Mg PO DAILY Review of Systems Except as stated in HPI: all other systems reviewed are Neg General / Constitutional: No: Fever Eyes: No: Visual changes HENT: Positive: Headaches, Rhinorrhea, Congestion, Neck Pain, No: Neck Stiffness Cardiovascular: No: Chest Pain or Discomfort Respiratory: No: Shortness of Breath Gastrointestinal: Positive: Nausea, Vomiting, Diarrhea, Abdominal Pain, Hematemesis, Indigestion, Loss of Appetite, No: Hematochezia, Changes in Bowel Habits Genitourinary: No: Dysuria Musculoskeletal: No: Pain Skin: No Rash Neurologic: Positive: Headache, No: Weakness, Focal Abnormalities, Change in Mentation, Slurred Speech, Sensory Disturbance Psychiatric: No: Depression Endocrine: No: Polydipsia Hematologic/Lymphatic: No: Easy Bruising Physical Exam Narrative General: The patient is a well-developed well-nourished female who is on my arrival to the room intermittently moaning complaining of severe abdominal pain. Head and Neck exam: Head is normocephalic atraumatic. Eyes: EOMI, pupils are equal round and reactive to light. Nose: Midline septum with pink mucous membranes Mouth: Dentition unremarkable. Moist mucus membranes. Posterior oropharynx is not erythematous. No tonsillar hypertrophy. Uvula midline. Airway patent. Neck: No palpable lymphadenopathy. No nuchal rigidity. No thyromegaly. The patient reports left-sided paraspinal cervical musculature tenderness on palpation and along the left-sided trapezius. Negative Brudzinski, negative Kernig sign. Negative Brudzinski, negative Kernig sign. Cardiovascular: Regular rate and rhythm without murmurs, gallops, or rubs. No pulse deficit to the extremities on simultaneous auscultation and palpation of her radial artery. Lungs: Clear to auscultation bilaterally. No wheezes, rhonchi, or rales. The patient has an occasional dry cough on examination. Abdomen: Soft, with central obesity noted, tenderness on palpation of bilateral upper quadrants of the abdomen worse on the right compared to the left. No masses are palpable. No guarding, rebound, or rigidity. Negative Fajardo sign. No tenderness on palpation specifically over McBurney's point. Normal bowel sounds are audible. Extremities: No clubbing, cyanosis, or edema. 2+ pulses in all 4 extremities. No calf tenderness on palpation peer Back: No spinous process tenderness to palpation. The patient reports having left- sided CVA tenderness on palpation, no right-sided CVA tenderness on palpation. Neurologic Exam: Grossly nonfocal. Skin Exam: No rash noted. Intact skin that is warm and dry. Data Data Last Documented VS Vital Signs Date Time Temp Pulse Resp B/P (MAP) Pulse Ox O2 Delivery O2 Flow Rate FiO2 08/29/17 19:28 20 97 Room Air 08/29/17 15:02 99.1 107 150/84 (106) Orders Orders Electrocardiogram (08/29/17 19:14) Complete Blood Count With Diff (08/29/17 19:14) Comprehensive Metabolic Panel (08/29/17 19:14) Creatine Kinase (Cpk) (08/29/17 19:14) Ckmb (Isoenzyme) Profile (08/29/17:14) Troponin I (08/29/17:14) B-Type Natriuretic Peptide (08/29/17:14) Prothrombin Time / Inr (Pt) (08/29/17:14) Act Partial Throm Time (Ptt) (08/29/17:14) C-Reactive Protein (Crp) (08/29/17:14) Lipase (08/29/17 19:14) Urinalysis - C+S If Indicated (08/29/17 19:14) Magnesium (Mg) (08/29/17 19:14) Thyroid Stimulating Hormone (08/29/17 19:14) Chest, Single Ap (08/29/17 19:14) Iv Access Insert/Monitor (08/29/17 19:14) Ecg Monitoring (08/29/17 19:14) Oximetry (08/29/17 19:14) Ed Urine Pregnancytest Poc (08/29/17 19:14) Sodium Chlor 0.9% 1000 Ml Inj (Ns 1000 M (08/29/17 19:15) Ondansetron Inj (Zofran Inj) (08/29/17 19:15) Ct Brain W/O Iv Contrast(Rout) (08/29/17 19:48) Pantoprazole Inj (Protonix Inj) (08/29/17 20:00) Morphine Inj (Morphine Inj) (08/29/17 20:00) Ct Abd/Pel W/O Iv Contrast (08/29/17 20:09) Urine Culture (08/29/17 19:30) Levofloxacin 500 Mg Premix Inj (Levaquin (08/29/17 20:45) CKMB (08/29/17 19:55) CKMB% (08/29/17 19:55) Pantoprazole Inj (Protonix Inj) (08/29/17 21:45) Admit Order (Ed Use Only) (08/29/17 21:43) Labs Laboratory Tests Test 08/29/17 19:30 08/29/17 19:55 Urine Color YELLOW Urine Turbidity HAZY Urine pH 5.5 Urine Specific [place] 1.016 Urine Protein NEG mg/dL Urine Glucose (UA) NEG mg/dL Urine Ketones NEG mg/dL Urine Occult Blood LARGE Urine Nitrite POS Urine Bilirubin NEG Urine Urobilinogen LESS THAN 2.0 MG/DL Urine Leukocyte Esterase MOD Urine RBC 151 /hpf Urine WBC 15 /hpf Urine Squamous Epithelial Cells 2 /hpf Urine Amorphous Sediment RARE Urine Bacteria MANY /hpf Urine Mucus FEW /lpf Microscopic Urinalysis Comment CULTURE INDICATED White Blood Count 8.7 TH/MM3 Red Blood Count 5.45 MIL/MM3 Hemoglobin 10.8 GM/DL Hematocrit 34.4 % Mean Corpuscular Volume 63.0 FL Mean Corpuscular Hemoglobin 19.7 PG Mean Corpuscular Hemoglobin Concent 31.3 % Red Cell Distribution Width 22.9 % Platelet Count 160 TH/MM3 Mean Platelet Volume 10.4 FL Neutrophils (%) (Auto) 65.8 % Lymphocytes (%) (Auto) 27.3 % Monocytes (%) (Auto) 5.3 % Eosinophils (%) (Auto) 0.8 % Basophils (%) (Auto) 0.8 % Neutrophils # (Auto) 5.8 TH/MM3 Lymphocytes # (Auto) 2.4 TH/MM3 Monocytes # (Auto) 0.5 TH/MM3 Eosinophils # (Auto) 0.1 TH/MM3 Basophils # (Auto) 0.1 TH/MM3 CBC Comment AUTO DIFF Prothrombin Time 10.4 SEC Prothromb Time International Ratio 1.0 RATIO Activated Partial Thromboplast Time 26.8 SEC Blood Urea Nitrogen 10 MG/DL Creatinine 0.91 MG/DL Random Glucose 87 MG/DL Total Protein 9.5 GM/DL Albumin 4.5 GM/DL Calcium Level 9.7 MG/DL Magnesium Level 2.1 MG/DL Alkaline Phosphatase 132 U/L Aspartate Amino Transf (AST/SGOT) 58 U/L Alanine Aminotransferase (ALT/SGPT) 83 U/L Total Bilirubin 0.4 MG/DL Sodium Level 139 MEQ/L Potassium Level 3.5 MEQ/L Chloride Level 99 MEQ/L Carbon Dioxide Level 27.1 MEQ/L Anion Gap 13 MEQ/L Estimat Glomerular Filtration Rate 67 ML/MIN Total Creatine Kinase 156 U/L Creatine Kinase MB 0.6 NG/ML Troponin I LESS THAN 0.02 NG/ML C-Reactive Protein 1.70 MG/DL B-Type Natriuretic Peptide 5 PG/ML Lipase 217 U/L Thyroid Stimulating Hormone 3rd Gen 13.500 uIU/ML MDM Medical Decision Making Medical Screen Exam Complete: Yes Emergency Medical Condition: Yes Medical Record Reviewed: Yes Interpretation(s) Last Impressions Abdomen/Pelvis CT 08/29/172008 Signed Impressions: Service Date/Time: Tuesday, August 29, 2017 20:19 - CONCLUSION: 1. Mild constipation. Hepatomegaly to 23.4 cm with fatty infiltration. 2. Fat- containing umbilical hernia measuring about 3 cm. 3. Small hiatal hernia. Je Zapata MD Head CT [id number]/[id number] Signed Impressions: Service Date/Time: Tuesday, August 29, 2017 20:16 - CONCLUSION: 1. No acute intracranial abnormalities. Je Zapata MD Chest X-Ray [id number] Signed Impressions: Service Date/Time: Tuesday, August 29, 2017 19:48 - CONCLUSION: No acute disease. Je Zapata MD Differential Diagnosis Peptic ulcer disease, versus Elina-Garvin tear, versus esophageal perforation, versus pancreatitis, versus exacerbation of gastroparesis, versus acid reflux, versus acute coronary syndrome Narrative Course During the course of the patient's emergency department visit, the patient's history, examination, and differential diagnosis were reviewed with the patient. The patient was placed on a clinical research monitor with oximetry and frequent blood pressure monitoring. The patient had IV access obtained and blood work sent for analysis. The patient had an EKG done on arrival. The patient's EKG revealed a sinus tachycardia rate of 101, QRS duration 85 ms, QTC [address] segment elevation. The patient was initially provided normal saline 1 L IV fluid bolus, Protonix 80 mg IV, Zofran 4 mg IV, morphine 4 mg IV for pain. The patient will be started on a Protonix drip. The patient's laboratory studies were reviewed and remarkable for a white count of 8.7, hemoglobin 10.8, platelets 160 with a normal differential. CMP is remarkable for GFR of 67, AST 58, ALT 83, alk phos 132, cardiac enzymes within normal limits, C-reactive protein 1.70, total protein 9.5, BNP is 5, TSH is elevated at 13.5, lipase 217. PT PTT within normal limits. Urinalysis shows signs of a urinary tract infection with moderate leukocyte esterase 151 RBCs, 15 WBCs many bacteria, culture indicated. The patient was started on Levaquin 500 mg IV 1 for her urinary tract infection given her multiple other antibiotic allergies. Radiology studies were reviewed and remarkable for a chest x-ray that shows no acute abnormality, CT scan of the brain shows no acute abnormality. CT scan of the abdomen and pelvis showed mild constipation, hepatomegaly 223.4 cm with fatty infiltration, fat-containing umbilical hernia measuring 3 cm, small hiatal hernia. The patient's results were discussed with the patient, including the plan of care. I explained that further testing and/ or monitoring is indicated based on the patient's history, examination, and/ or laboratory findings. Therefore, I recommended admission for additional evaluation. The patient expressed understanding and was agreeable with this plan. The patient was admitted to the hospital in stable condition and sent to a bed under the care of Dr. Reddy service. Physician Communication Physician Communication The patient's case including history, pertinent physical examination findings, and laboratory studies were discussed with Dr. Reddy. It was agreed that the patient would be admitted to Dr. Reddy service. Diagnosis Primary Impression: Hematemesis Qualified Codes: K92.0 - Hematemesis Additional Impressions: Urinary tract infection Qualified Codes: N39.0 - Urinary tract infection, site not specified; R31.9 - Hematuria, unspecified Hypothyroidism Qualified Codes: E03.9 - Hypothyroidism, unspecified Admitting Information Admitting Physician Requests: Admit Edilma Thompson MD Aug 29, 2017 19:17
[2017-08-29 19:28] VITALS: RESP 20; O2SAT 97
[2017-08-29 19:30] VITALS: BP 154/88; PULSE 106; RESP 18; O2SAT 100
[2017-08-29] MEDS ORDERED: MORPHINE SULFATE 4 MG/ML INJ IV PUSH ONE (20:00)
[2017-08-29] MEDS ORDERED: PANTOPRAZOLE INJ 80 MG in SODIUM CHLORIDE 0.9% INJ 100 ML IV SCH (20:00)
[2017-08-29] MEDS ORDERED: CLON0.1T PO (20:07)
[2017-08-29] MEDS ORDERED: LISI40TA PO (20:07)
[2017-08-29] MEDS ORDERED: IPRA17I INH (20:07)
[2017-08-29] MEDS ORDERED: LORA0.5T PO (20:07)
[2017-08-29 20:27] LABS: AMORPHOUS SEDIMENT, URINE RARE; BACTERIA, URINE MANY /hpf; BILIRUBIN, URINE NEG (NEG); BLOOD, URINE LARGE (NEG); GLUCOSE,URINE NEG (NEG); KETONE, URINE NEG (NEG); MUCUS URINE FEW /lpf (OCC); NITRITE,URINE POS (NEG); PH, URINE 5.5 (5.0-8.5); SQUAMOUS EPITHELIAL CELL URINE 2 /hpf (0-5); URINE COLOR YELLOW (YELLW/STRAW); URINE LEUKOCYTE ESTERASE MOD (NEG)
[2017-08-29 20:35] LABS: PROTHROMBIN TIME - PATIENT 10.4 SEC (9.8-11.6)
[2017-08-29 20:37] LABS: AUTOMATED NEUTROPHIL # 5.8 TH/MM3 (1.8-7.7); BASOPHIL # 0.1 TH/MM3 (0-0.2); BASOPHIL % 0.8 % (0.0-2.0); EOSINOPHIL # 0.1 TH/MM3 (0-0.4); EOSINOPHIL % 0.8 % (0.0-4.0); HEMATOCRIT 34.4 % (35.0-46.0); HEMOGLOBIN 10.8 GM/DL (11.6-15.3); LYMPH % 27.3 % (9.0-44.0); LYMPHOCYTE # 2.4 TH/MM3 (1.0-4.8); MEAN CORPUSCULAR HEMOGLOBIN 19.7 PG (27.0-34.0); MEAN CORPUSCULAR HGB CONC 31.3 % (32.0-36.0); MEAN PLATELET VOLUME 10.4 FL (7.0-11.0); MONO % 5.3 % (0.0-8.0); MONOCYTE # 0.5 TH/MM3 (0-0.9); NEUT % 65.8 % (16.0-70.0); PLATELET COUNT 160 TH/MM3 (150-450); RED BLOOD COUNT 5.45 MIL/MM3 (4.00-5.30); RED CELL DISTRIBUTION WIDTH 22.9 % (11.6-17.2); WHITE BLOOD COUNT 8.7 TH/MM3 (4.0-11.0)
--- NOTE | 2017-08-29 20:43 | RADRPT ---
EXAM DATE/TIME: 08/29/2017 19:48 [facility] COMPARISON: No previous studies available for comparison. INDICATIONS : Short of breath, abdominal pain and vomiting. MEDICAL HISTORY : Stroke. Cardiovascular disease Hypertension. Asthma SURGICAL HISTORY : Cholecystectomy. ENCOUNTER: Initial ACUITY: 1 day PAIN SCORE: 10/10 LOCATION: abdomen FINDINGS: A single view of the chest demonstrates the lungs to be symmetrically aerated without evidence of mas s, infiltrate or effusion. The cardiomediastinal contours are unremarkable. Osseous structures are intact. CONCLUSION: No acute disease. Je Zapata MD on August 29, 2017 at 20:41 Board Certified Radiologist. This report was verified electronically.
[2017-08-29] MEDS ORDERED: LEVOFLOXACIN 500 MG PREMIX INJ 100 ML IV ONE (20:45)
[2017-08-29 20:56] LABS: ALBUMIN 4.5 GM/DL (3.4-5.0); AST (GOT) 58 U/L (15-37); BICARBONATE 27.1 MEQ/L (21.0-32.0); BLOOD UREA NITROGEN 10 MG/DL (7-18); CALCIUM 9.7 MG/DL (8.5-10.1); CHLORIDE 99 MEQ/L (98-107); CREATININE 0.91 MG/DL (0.50-1.00); GLOMERULAR FILTRATION RATE 67 ML/MIN (>89); GLUCOSE,RANDOM 87 MG/DL (74-106); MAGNESIUM 2.1 MG/DL (1.5-2.5); SODIUM (NA) 139 MEQ/L (136-145)
[2017-08-29 20:57] LABS: ALT (GPT) 83 U/L (10-53)
[2017-08-29 21:06] LABS: ALKALINE PHOSPHATASE 132 U/L (45-117); TOTAL BILIRUBIN ADULT 0.4 MG/DL (0.2-1.0); TOTAL PROTEIN 9.5 GM/DL (6.4-8.2); TROPONIN I LESS THAN 0.02 NG/ML (0.02-0.05)
--- NOTE | 2017-08-29 21:24 | RADRPT ---
EXAM DATE/TIME: 08/29/2017 20:16 [facility] COMPARISON: CT BRAIN W/O CONTRAST, January 08, 2017, 15:33. INDICATIONS : Cephalgia. RADIATION DOSE: 66.34 CTDIvol (mGy) MEDICAL HISTORY : Hypertension. Lupus. Cerebrovascular disease.GERD. SURGICAL HISTORY : None. ENCOUNTER: Initial ACUITY: 1 day PAIN SCALE: 7/10 LOCATION: cranial TECHNIQUE: Multiple contiguous axial images were obtained of the head. Using automated exposure control and adj ustment of the mA and/or kV according to patient size, radiation dose was kept as low as reasonably a chievable to obtain optimal diagnostic quality images. DICOM format image data is available electro nically for review and comparison. FINDINGS: CEREBRUM: The ventricles are normal for age. No evidence of midline shift, mass lesion, hemorrhage or acute in farction. No extra-axial fluid collections are seen. POSTERIOR FOSSA: The cerebellum and brainstem are intact. The 4th ventricle is midline. The cerebellopontine angle i s unremarkable. EXTRACRANIAL: The visualized portion of the orbits is intact. SKULL: The calvaria is intact. No evidence of skull fracture. CONCLUSION: 1. No acute intracranial abnormalities. Je Zapata MD on August 29, 2017 at 21:21 Board Certified Radiologist. This report was verified electronically.
--- NOTE | 2017-08-29 21:29 | RADRPT ---
EXAM DATE/TIME: 08/29/2017 20:19 [facility] COMPARISON: No previous studies available for comparison. INDICATIONS : Bilateral upper quadrant pain. ORAL CONTRAST: No oral contrast ingested. RADIATION DOSE: 10.25 CTDIvol (mGy) MEDICAL HISTORY : Hypertension. Lupus. Gastroparesis.GERD. CVA. SURGICAL HISTORY : Cholecystectomy. section. ENCOUNTER: Initial ACUITY: 1 day PAIN SCALE: 8/10 LOCATION: Bilateral upper quadrant TECHNIQUE: Volumetric scanning of the abdomen and pelvis was performed. Using automated exposure control and ad justment of the mA and/or kV according to patient size, radiation dose was kept as low as reasonably achievable to obtain optimal diagnostic quality images. DICOM format image data is available electro nically for review and comparison. FINDINGS: Lung bases are clear. Fatty liver. Spleen, adrenals, kidneys and pancreas unremarkable. Previous cholecystectomy. Small fat -containing umbilical hernia. Previous cholecystectomy. No biliary ductal dilatation. Mild constipation. No bowel obstruction. No free air or free fluid. No adenopathy. CONCLUSION: 1. Mild constipation. Hepatomegaly to 23.4 cm with fatty infiltration. 2. Fat-containing umbilical hernia measuring about 3 cm. 3. Small hiatal hernia. Je Zapata MD on August 29, 2017 at 21:22 Board Certified Radiologist. This report was verified electronically.
[2017-08-29 21:30] VITALS: BP 150/82; PULSE 98; RESP 18; O2SAT 98
[2017-08-29 21:58] LABS: OVALOCYTES 1+ (NORMAL); SPHEROCYTES OCC (NORMAL)
[2017-08-29] MEDS ORDERED: NALOXONE HCL 0.4 MG/ML AMP IV PUSH PRN (22:00)
[2017-08-29] MEDS ORDERED: ACETAMINOPHEN 325 MG TAB PO PRN (22:00)
[2017-08-29] MEDS ORDERED: DEXTROSE 50% IN WATER 50 ML VIAL(D50) IV PUSH PRN (22:00)
[2017-08-29] MEDS ORDERED: HALOPERIDOL LACTATE 5 MG/ML AMP IM PRN (22:00)
[2017-08-29] MEDS ORDERED: GLUCAGON 1 MG/ML VIAL OTHER PRN (22:00)
[2017-08-29] MEDS ORDERED: LORazepam 2 MG/ML VIAL IV PUSH PRN (22:00)
[2017-08-29] MEDS ORDERED: LORazepam 0.5 MG TAB PO PRN (22:00)
[2017-08-29] MEDS ORDERED: LACTULOSE SYRUP 20 GM/30 ML CUP PO PRN (22:00)
[2017-08-29] MEDS: PREGABALIN 25 MG CAP PO SCH (22:00)
[2017-08-29] MEDS ORDERED: SODIUM CHLORIDE 0.9% FLUSH 10 ML FLUSH IV FLUSH PRN (22:00)
[2017-08-29] MEDS ORDERED: PROCHLORPERAZINE 25 MG SUPP RECTAL PRN (22:00)
[2017-08-29] MEDS ORDERED: cloNIDine HCL 0.1 MG TAB PO PRN (22:00)
[2017-08-29] MEDS ORDERED: MAGNESIUM HYDROXIDE SUSP 30 ML CUP PO PRN (22:00)
[2017-08-29] MEDS ORDERED: SENNOSIDES 8.6 MG TAB PO PRN (22:00)
[2017-08-29] MEDS ORDERED: RESP: ALBUTEROL 2.5 MG/3 ML NEB (PRN) NEB (22:00)
[2017-08-29] MEDS ORDERED: BISACODYL 10 MG SUPP RECTAL PRN (22:00)
[2017-08-29] MEDS ORDERED: hydrALAZINE HCL 20 MG/ML VIAL IV PUSH PRN (22:00)
[2017-08-29] MEDS: METOCLOPRAMIDE HCL 10 MG/2 ML VIAL IV PUSH PRN (22:11)
[2017-08-29] MEDS: PANTOPRAZOLE INJ 80 MG in SODIUM CHLORIDE 0.9% INJ 100 ML IV SCH (22:25)
[2017-08-29] MEDS: D5-1/2 NS + KCL 10 MEQ INJ 1,000 ML IV SCH (22:25)
[2017-08-29 22:35] VITALS: BP 146/76; PULSE 100; RESP 20; O2SAT 96
[2017-08-30] VITALS (7 sets, daily range): BP systolic 129–170; BP diastolic 74–89; PULSE 91–109; RESP 16–18; TEMP 98.2–98.7; O2SAT 93–97
[2017-08-30] MEDS: MORPHINE SULFATE 8 MG/ML INJ IV PUSH PRN ×4 (01:05→20:50)
[2017-08-30] MEDS: ONDANSETRON HCL 4 MG/2 ML VIAL IVP PRN ×2 (02:59→09:36)
[2017-08-30] MEDS: METOCLOPRAMIDE HCL 10 MG/2 ML VIAL IV PUSH PRN ×3 (05:38→20:49)
[2017-08-30] MEDS: INSULIN ASPART SUPPLEMENTAL SCALE SQ SCH ×4 (08:00→21:00)
[2017-08-30] MEDS: SODIUM CHLORIDE 0.9% FLUSH 10 ML FLUSH IV FLUSH SCH ×2 (09:00→20:51)
--- NOTE | 2017-08-30 09:05 | PD.CONS ---
HPI History of Present Illness This is a 47 year old with hx DM, gastroparesis who presented to ER with abd pain and n/v that started yesterday. Pain is in upper quadrants, constant. Yesterday she noticed scant red blood in emesis. She has frequent episodes of this, cannot elaborate on timing, cites having gastroparesis. Admits blood in stool. Denies diarrhea, blood in stool. SHe is actively dry heaving. She was evaluated by our service 10/2016 and had a borderline abnormal GES and an EGD that showed duodenitis, esophagitis and a hiatal hernia, path benign. Never had colonoscopy. CT 08/29/17 showed mild constipation, fatty liver, hepatomegaly. (Lin Montes) PFSH Past Medical History gastroparesis DM fibromyalgia lupus asthma Past Surgical History hand surgery c section x 2 cholecystectomy (Lin Montes) Coded Allergies: broccoli (Verified Allergy, Severe, Diarrhea, 08/29/17) RASH cephalexin (Verified Allergy, Severe, Diarrhea, 08/29/17) ALSO RASH iodine (Verified Allergy, Severe, Anaphylaxis, 08/29/17) potassium iodide (Verified Allergy, Severe, Anaphylaxis, 08/29/17) povidone-iodine (Verified Allergy, Severe, Anaphylaxis, 08/29/17) shellfish derived (Verified Allergy, Severe, Anaphylaxis, 08/29/17) sodium iodide (Verified Allergy, Severe, Anaphylaxis, 08/29/17) sodium iodide (Verified Allergy, Severe, Anaphylaxis, 08/29/17) theophylline (Verified Allergy, Severe, Anaphylaxis, 08/29/17) aminophylline (Verified Allergy, Intermediate, MAKES HER HYPER ELEVATES BP , 08/29/17) naproxen (Verified Allergy, Intermediate, Rash, 08/29/17) penicillin G (Verified Allergy, Intermediate, RASH, 08/29/17) aminopyrine (Verified Allergy, Unknown, 08/29/17) DENIES ALLERGY azathioprine (Verified Allergy, Unknown, 08/29/17) diphenhydramine (Verified Adverse Reaction, Mild, palpitations, 08/29/17) pushed too quickly ibuprofen (Verified Adverse Reaction, Mild, 08/29/17) stomach pain Uncoded Allergies: Eggplant (Allergy, Intermediate, 10/09/16) AMRNOHILSON (Adverse Reaction, Severe, 10/09/16) .. Family History unk Social History no etoh no tobacco no illicit drug use (Lin Montes) Review of Systems Constitutional: DENIES: Fever Respiratory: COMPLAINS OF: Cough Cardiovascular: DENIES: Chest pain Gastrointestinal: COMPLAINS OF: Abdominal pain, Nausea, Vomiting, Hematemesis Genitourinary: DENIES: Urinary incontinence Musculoskeletal: COMPLAINS OF: Joint pain Integumentary: DENIES: Abnormal pigmentation Neurologic: DENIES: Abnormal gait Psychiatric: DENIES: Confusion (Lin Montes) GI Exam Vitals I&O Vital Signs Date Time Temp Pulse Resp B/P (MAP) Pulse Ox O2 Delivery O2 Flow Rate FiO2 08/30/17 04:43 97 18 135/74 (94) 96 Room Air 08/30/17 01:36 16 08/30/17 00:57 103 16 131/74 (93) 97 Room Air 08/29/17 22:35 100 20 146/76 (99) 96 Room Air 08/29/17 21:30 98 18 150/82 (104) 98 Room Air 08/29/17 19:30 106 18 154/88 (110) 100 Room Air 08/29/17 19:28 20 97 Room Air 08/29/17 15:02 99.1 107 24 150/84 (106) 96 I/O 08/29/17 08/29/17 08/29/17 08/30/17 08/30/17 08/30/17 07:00 15:00 23:00 07:00 15:00 23:00 Intake Total 1100 ml Balance 1100 ml Intake IV Total 1100 ml # Voids 1 Imaging Last Impressions Abdomen/Pelvis CT 08/29/172008 Signed Impressions: Service Date/Time: Tuesday, August 29, 2017 20:19 - CONCLUSION: 1. Mild constipation. Hepatomegaly to 23.4 cm with fatty infiltration. 2. Fat- containing umbilical hernia measuring about 3 cm. 3. Small hiatal hernia. Je Zapata MD Head CT 08/29/171947 Signed Impressions: Service Date/Time: Tuesday, August 29, 2017 20:16 - CONCLUSION: 1. No acute intracranial abnormalities. Je Zapata MD Chest X-Ray 08/29/171913 Signed Impressions: Service Date/Time: Tuesday, August 29, 2017 19:48 - CONCLUSION: No acute disease. Je Zapata MD Laboratory Test 08/29/17 19:30 08/29/17 19:55 Urine Color YELLOW Urine Turbidity HAZY Urine pH 5.5 Urine Specific Bradford 1.016 Urine Protein NEG mg/dL Urine Glucose (UA) NEG mg/dL Urine Ketones NEG mg/dL Urine Occult Blood LARGE Urine Nitrite POS Urine Bilirubin NEG Urine Urobilinogen LESS THAN 2.0 MG/DL Urine Leukocyte Esterase MOD Urine RBC 151 /hpf Urine WBC 15 /hpf Urine Squamous Epithelial Cells 2 /hpf Urine Amorphous Sediment RARE Urine Bacteria MANY /hpf Urine Mucus FEW /lpf Microscopic Urinalysis Comment CULTURE INDICATED White Blood Count 8.7 TH/MM3 Red Blood Count 5.45 MIL/MM3 Hemoglobin 10.8 GM/DL Hematocrit 34.4 % Mean Corpuscular Volume 63.0 FL Mean Corpuscular Hemoglobin 19.7 PG Mean Corpuscular Hemoglobin Concent 31.3 % Red Cell Distribution Width 22.9 % Platelet Count 160 TH/MM3 Mean Platelet Volume 10.4 FL Neutrophils (%) (Auto) 65.8 % Lymphocytes (%) (Auto) 27.3 % Monocytes (%) (Auto) 5.3 % Eosinophils (%) (Auto) 0.8 % Basophils (%) (Auto) 0.8 % Neutrophils # (Auto) 5.8 TH/MM3 Lymphocytes # (Auto) 2.4 TH/MM3 Monocytes # (Auto) 0.5 TH/MM3 Eosinophils # (Auto) 0.1 TH/MM3 Basophils # (Auto) 0.1 TH/MM3 CBC Comment AUTO DIFF Differential Comment AUTO DIFF CONFIRMED Platelet Estimate NORMAL Platelet Morphology Comment ENLARGED Spherocytes OCC Ovalocytes 1+ Prothrombin Time 10.4 SEC Prothromb Time International Ratio 1.0 RATIO Activated Partial Thromboplast Time 26.8 SEC Blood Urea Nitrogen 10 MG/DL Creatinine 0.91 MG/DL Random Glucose 87 MG/DL Total Protein 9.5 GM/DL Albumin 4.5 GM/DL Calcium Level 9.7 MG/DL Magnesium Level 2.1 MG/DL Alkaline Phosphatase 132 U/L Aspartate Amino Transf (AST/SGOT) 58 U/L Alanine Aminotransferase (ALT/SGPT) 83 U/L Total Bilirubin 0.4 MG/DL Sodium Level 139 MEQ/L Potassium Level 3.5 MEQ/L Chloride Level 99 MEQ/L Carbon Dioxide Level 27.1 MEQ/L Anion Gap 13 MEQ/L Estimat Glomerular Filtration Rate 67 ML/MIN Total Creatine Kinase 156 U/L Creatine Kinase MB 0.6 NG/ML Troponin I LESS THAN 0.02 NG/ML C-Reactive Protein 1.70 MG/DL B-Type Natriuretic Peptide 5 PG/ML Lipase 217 U/L Thyroid Stimulating Hormone 3rd Gen 13.500 uIU/ML Date/Time Source Procedure Growth Status 08/29/17 19:30 Urine Random Urine Urine Culture Pending Worksheet Physical Examination HEENT: PERRL; normocephalic; atraumatic; no jaundice. diaphoretic CHEST: Chest is clear to auscultation and percussion. CARDIAC: RRR ABDOMEN: Soft,obese, upper quadrant TTP; no hepatosplenomegaly; bowel sounds are present in all four quadrants. actively burping and dry heaving EXTREMITIES: No clubbing, cyanosis, or edema. SKIN: Normal; no rash; no jaundice. RELOCATION COMMISSIONER: No focal deficits; alert and oriented times three. (Lin Montes) Assessment and Plan Plan ASSESSMENT - upper quadrant pain, n/v - unclear etiology could be gastroparesis vs gastritis. hx gastroparesis with borderline abnormal test 10/2016 last EGD 10/[address] Martinez showed duodenitis, esophagitis, hiatal hernia , path benign. SHe does not take [id number] for gastroparesis. SHe has taken reglan in past and says it helped. - hematemesis - scant blood in emesis yesterday after mult episodes vomiting. could be small tear - anemis - microcytic likely multifactorial PLAN - EGD today if possible - keep NPO - obtain consent - PRN reglan - Further recs to follow pt seen by myself and Dr Payne and this note is on her behalf. (Lin Montes) Physician Comments seen, examined agree with above mild elevated lfts -no indication of cbd stone, most likely fatty liver if egd negative consider colonoscopy for anemia , can be done op also (Jia Payne MD) Lin Montes Aug 30, 2017 09:04 Jia Payne MD Aug 30, 2017 18:13
[2017-08-30] MEDS: FLUTICASONE PROPIONATE 220 MCG/ACT 12 GM INHALER INH SCH ×2 (09:13→20:56)
[2017-08-30] MEDS: DULoxetine HCl DR 20 MG CAP PO SCH (09:14)
[2017-08-30] MEDS: LISINOPRIL 20 MG TAB PO SCH (09:14)
[2017-08-30] MEDS: cloNIDine HCL 0.1 MG TAB PO SCH (09:14)
[2017-08-30] MEDS: DOCUSATE SODIUM 50 MG/SENNA 8.6 MG TAB PO SCH ×2 (09:14→20:49)
--- NOTE | 2017-08-30 10:08 | MH ---
cc: Bubba Reddy MD DATE OF ADMISSION: 08/29/2017 CHIEF COMPLAINT: Hematemesis. HISTORY OF PRESENT ILLNESS: Prachi Chaudhry is a 47-year-old female who I see in the outpatient. She was in my office last week and had her typical complaints of ongoing dyspepsia, anxiety, chronic pain and wheezing. We placed her back on her proton pump inhibitor. She was doing relatively well as far as her baseline. Unfortunately, the patient presented to the Emergency Room with abdominal pain, nausea, vomiting, and hematemesis. She states that she has had that recurrently since being in the emergency room; however, no nurses have actually witnessed this. Nursing does report severe anxiety and chronic pain and some dry heaving. The patient is seen in the emergency room and is holding an expectorant bag. She is disheveled-appearing and looks ill. She states that this all started yesterday. PAST MEDICAL HISTORY: 1. Lupus. 2. Gastritis. 3. Gastroparesis. 4. Diabetes. 5. Asthma. 6. Sinus tachycardia due to asthma. 7. Panic disorder. 8. Anemia of chronic disease. 9. TIA. 10. Carpal tunnel syndrome. PAST SURGICAL HISTORY: 1. Recent carpal tunnel release. 2. Numerous EGDs and colonoscopies. FAMILY HISTORY: Mother with diabetes and psychosis. Father unknown. ALLERGIES: CEPHALEXIN. IBUPROFEN. IODINE. NAPROXEN. PENICILLIN. Numerous others. MEDICATIONS: Reviewed and in chart. She is on - 1. Fluticasone. 2. Haldol p.r.n. 3. Tylenol p.r.n. 4. Chlorthalidone 5. Lisinopril. 5. Meloxicam. 6. Metformin. 7. Metoclopramide. 8. Morphine IR 9. Protonix 40 daily. SOCIAL HISTORY: She lives in an apartment with her and her mother. She is now on disability due to lupus. No alcohol, tobacco or illicit drug usage. LABORATORY DATA: Hemoglobin 10.8, otherwise normal CBC. AST 58, ALT 83. CRP 1.7. TSH 13.5. IMAGING: CT abdomen shows constipation, hepatomegaly with fatty infiltration, umbilical hernia, a 3 cm small hiatal hernia. Head CT shows no acute intracranial abnormalities. Chest x-ray: No acute disease. MICROBIOLOGY Urine cultures pending. PHYSICAL EXAMINATION: VITAL SIGNS: Temperature 98.4, pulse 106, respirations 18, blood pressure 170/86, pulse ox 95% on room air. GENERAL: Disheveled appearing female. She is sitting at an incline and holding a vomitus bag. HEENT/NECK: Oropharynx is clear. No JVD. Neck is supple. Normocephalic, atraumatic. CHEST: Slight expiratory wheezes. Good air movement. No crackles, rales or consolidation. CARDIOVASCULAR: Sinus tachycardia, regular rhythm. ABDOMEN: Slightly distended, slightly tender in all quadrants. Normoactive bowel sounds. No organomegaly. NEUROLOGIC: Alert and oriented. Cranial nerves are intact. Strength is 3/5 in upper and lower extremities. Sensation is intact in all dermatomes. EXTREMITIES: Trace edema in the feet. SKIN: Overall is clear. PSYCHIATRIC: She is disheveled and in slight distress. She is very anxious and nervous and complaining of pain. Cranial nerves are grossly intact. ASSESSMENT AND PLAN: 1. Gastrointestinal bleed and hematemesis likely due to gastritis or peptic ulcer disease. 2. Gastroparesis. 3. Gastritis. 4. Lupus syndrome. 5. Chronic pain syndrome. 6. Urgent hypertension. 7. Diabetes. 8. Asthma. 9. Carpal tunnel syndrome, status post recent carpal tunnel release with sutures still intact. 10. Transient ischemic accident history. 11. Panic disorder. PLAN: 1. N.p.o. 2. GI consult. 3. D5 IV fluids as she is n.p.o. 4. Sliding scale insulin. 5. Start levothyroxine for new diagnosis hypothyroidism. 6. CBC and BMP. 7. Gastrointestinal prophylaxis - IV Protonix. 8. Deep venous thrombosis prophylaxis: SCDs and TEDs and hold chemoprophylaxis due to hematemesis. 9. P.r.n. nebulizers. 10. Catapres p.r.n. 11. Ativan p.r.n. 12. Haldol p.r.n. for severe agitation. She has required this in the past and appears she will be needing it and discussed with nursing. 13. Reglan and Zofran p.r.n. 14. Follow up urine culture. 15. Observation admission and will likely be able to discharge her home tomorrow if there is no severe findings on EGD and she is taking p.o. MD MELVINA Mcgee/SARAI , 09:37 AM , 10:07 AM
[2017-08-30] MEDS ORDERED: SUCCINYLCHOLINE CHLORIDE 100 MG/5 ML SYRINGE IV PUSH ONE (12:00)
[2017-08-30] MEDS ORDERED: DEXAMETHASONE SOD PHOS 4 MG/ML VIAL IV ONE (12:00)
[2017-08-30] MEDS ORDERED: LIDOCAINE HCL 1% PF 5 ML SYRINGE OTHER ONE (12:00)
[2017-08-30] MEDS ORDERED: PROPOFOL 200 MG/20 ML AMP IV ONE (12:00)
[2017-08-30] MEDS ORDERED: GLYCOPYRROLATE 1 MG/5 ML SYRINGE IV PUSH ONE (12:00)
[2017-08-30] MEDS ORDERED: ONDANSETRON HCL 4 MG/2 ML VIAL IV ONE (12:00)
[2017-08-30] MEDS ORDERED: ESMOLOL HCL 100 MG/10 ML VIAL IV ONE (12:00)
[2017-08-30 14:28] LABS: AUTOMATED NEUTROPHIL # 8.4 TH/MM3 (1.8-7.7); BASOPHIL % 0.2 % (0.0-2.0); EOSINOPHIL % 0.1 % (0.0-4.0); HEMATOCRIT 30.2 % (35.0-46.0); HEMOGLOBIN 9.7 GM/DL (11.6-15.3); LYMPH % 11.5 % (9.0-44.0); LYMPHOCYTE # 1.2 TH/MM3 (1.0-4.8); MEAN CELL VOLUME 62.6 FL (80.0-100.0); MEAN CORPUSCULAR HEMOGLOBIN 20.1 PG (27.0-34.0); MEAN PLATELET VOLUME 10.4 FL (7.0-11.0); MONO % 4.8 % (0.0-8.0); MONOCYTE # 0.5 TH/MM3 (0-0.9); NEUT % 83.4 % (16.0-70.0); PLATELET COUNT 169 TH/MM3 (150-450); RED BLOOD COUNT 4.82 MIL/MM3 (4.00-5.30); RED CELL DISTRIBUTION WIDTH 23.2 % (11.6-17.2)
[2017-08-30 14:48] LABS: BICARBONATE 25.9 MEQ/L (21.0-32.0); CREATININE 0.83 MG/DL (0.50-1.00)
--- NOTE | 2017-08-30 16:00 | GIPROC ---
[facility] [address] [facility]. [facility], [address] EGD PROCEDURE REPORT EXAM DATE: 08/30/2017 PATIENT NAME: Prachi Chaudhry MR #: [id number] BIRTHDATE: 1970 ATTENDING: Jia Payne MD ORDER #: [id number] [employer]ITEW[employer] RAFTING GUIDE: Brock Palacios and Araceli Sears STATUS: inpatient INDICATIONS: The patient is a 47 yr old female here for an EGD due to n, v, gi bleeding PROCEDURE PERFORMED: EGD w/ biopsy MEDICATIONS: None and Per Anesthesia. TOPICAL ANESTHETIC: none CONSENT: The patient understands the risks and benefits of the procedure and understands that these risks include, but are not limited to: sedation, allergic reaction, infection, perforation and/or bleeding. Alternative means of evaluation and treatment include, among others: physical exam, x-rays, and/or surgical intervention. The patient elects to proceed with this endoscopic procedure. medical equipment was checked for proper function. Hand hygiene and appropriate measures for infection prevention was taken. After the risks, benefits and alternatives of the procedure were thoroughly explained, Informed consent was verified, confirmed and timeout was successfully executed by the treatment team. The patient was anesthetized with topical anesthesia and the Pentax EG-[id number] endoscope was introduced through the mouth and advanced to the second portion of the duodenum. Retroflexed views revealed a hiatal hernia The gastroscope was then slowly withdrawn and removed. Gastritis antrum-biopsy esophagitis distal esophagus -biopsy esophagitis distal esophagus-biopsy. ADVERSE EVENTS: There were no complications. IMPRESSIONS: 1. Gastritis antrum-biopsy esophagitis distal esophagus -biopsy esophagitis distal esophagus-biopsy 2. Retroflexed views revealed a hiatal hernia RECOMMENDATIONS: 1. Await biopsy results. Biopsy results will not be ready for 7-10 days. If you don't hear from us in two weeks, call our office for biopsy results. 2. Anti-reflux regimen 3. Clear liquid diet carafate liquid ppi reglan if not better PATIENT CONDITION: stable DISPOSITION: Inpatient REPEAT EXAM: Return 8 weeks EGD Jia Payne MD eSigned: Jia Payne MD 08/30/2017 4:00 PM cc: PATIENT NAME: Prachi Chaudhry MR#: [id number]
[2017-08-30] MEDS ORDERED: DO NOT ADM ANY ANTICOAGULANT DRUGS PRN (16:15)
[2017-08-30 16:22] LABS: OVALOCYTES 1+ (NORMAL)
--- NOTE | 2017-08-30 20:37 | EKG ---
Date Performed: 08/29/2017 Time Performed: 19:34:34 PTAGE: 47 years EKG: SINUS TACHYCARDIA POSSIBLE LEFT ATRIAL ENLARGEMENT NONSPECIFIC T-WAVE ABNORMALITY ABNORMAL RHYTHM ECG PREVIOUS TRACING : 08/11/2017 10.33 Since the previous tracing, no significant change noted DOCTOR: Geovanni Echavarria Interpretating Date/Time 08/30/2017 20:37:08
[2017-08-30] MEDS: PREGABALIN 25 MG CAP PO SCH (20:49)
[2017-08-30] MEDS: PANTOPRAZOLE INJ 80 MG in SODIUM CHLORIDE 0.9% INJ 100 ML IV SCH (21:39)
[2017-08-30] MEDS: D5-1/2 NS + KCL 10 MEQ INJ 1,000 ML IV SCH (21:39)
[2017-08-31] MEDS: ZOLPIDEM TARTRATE 5 MG TAB PO PRN ×2 (01:58→22:17)
[2017-08-31 03:18] VITALS: BP 137/81; PULSE 101; RESP 17; TEMP 98.4; O2SAT 93
[2017-08-31 07:41] VITALS: BP 143/86; PULSE 90; RESP 18; TEMP 98.8; O2SAT 95
[2017-08-31 07:49] LABS: BICARBONATE 26.5 MEQ/L (21.0-32.0); CALCIUM 8.5 MG/DL (8.5-10.1); CREATININE 0.72 MG/DL (0.50-1.00)
[2017-08-31] MEDS: INSULIN ASPART SUPPLEMENTAL SCALE SQ SCH ×4 (07:57→21:00)
[2017-08-31] MEDS: DULoxetine HCl DR 20 MG CAP PO SCH (09:00)
[2017-08-31] MEDS: DOCUSATE SODIUM 50 MG/SENNA 8.6 MG TAB PO SCH ×2 (09:00→20:54)
[2017-08-31] MEDS: METOCLOPRAMIDE HCL 10 MG/2 ML VIAL IV PUSH PRN ×2 (11:04→18:23)
[2017-08-31] MEDS: FLUTICASONE PROPIONATE 220 MCG/ACT 12 GM INHALER INH SCH ×2 (11:04→20:54)
[2017-08-31] MEDS: SODIUM CHLORIDE 0.9% FLUSH 10 ML FLUSH IV FLUSH SCH ×2 (11:05→20:53)
[2017-08-31 11:08] LABS: AUTOMATED NEUTROPHIL # 5.4 TH/MM3 (1.8-7.7); BASOPHIL % 0.5 % (0.0-2.0); EOSINOPHIL % 0.3 % (0.0-4.0); HEMOGLOBIN 8.9 GM/DL (11.6-15.3); LYMPH % 19.5 % (9.0-44.0); LYMPHOCYTE # 1.4 TH/MM3 (1.0-4.8); MEAN CELL VOLUME 63.2 FL (80.0-100.0); MEAN CORPUSCULAR HEMOGLOBIN 20.1 PG (27.0-34.0); MEAN CORPUSCULAR HGB CONC 31.8 % (32.0-36.0); MEAN PLATELET VOLUME 10.9 FL (7.0-11.0); MONO % 6.7 % (0.0-8.0); MONOCYTE # 0.5 TH/MM3 (0-0.9); PLATELET COUNT 169 TH/MM3 (150-450); RED BLOOD COUNT 4.43 MIL/MM3 (4.00-5.30); RED CELL DISTRIBUTION WIDTH 22.9 % (11.6-17.2); WHITE BLOOD COUNT 7.4 TH/MM3 (4.0-11.0)
[2017-08-31] MEDS: LISINOPRIL 20 MG TAB PO SCH (11:33)
[2017-08-31] MEDS: cloNIDine HCL 0.1 MG TAB PO SCH (11:33)
--- NOTE | 2017-08-31 12:09 | HHI.GIFU ---
Subjective Remarks Pt resting in bed Complaining of continued abdominal pain- worse with movement- denies any relation to food (+) nausea (-) emesis Reports two BMs this morning, first one she states was black and hard, 2nd was diarrhea Tolerating liquid diet (Alexa Monroe) Objective Vitals I&O Vital Signs Date Time Temp Pulse Resp B/P (MAP) Pulse Ox O2 Delivery O2 Flow Rate FiO2 08/31/17 07:41 98.8 90 18 143/86 (105) 95 08/31/17 03:18 98.4 101 17 137/81 (99) 93 08/30/17 23:00 98.5 109 17 135/76 (95) 93 08/30/17 22:10 18 08/30/17 22:00 21 08/30/17 19:38 98.7 91 18 136/84 (101) 94 08/30/17 18:40 98.2 106 18 141/89 (106) 96 08/30/17 16:45 106 14 101/86 (91) 99 Nasal Cannula 2 08/30/17 16:40 97.7 104 14 121/74 (90) 99 Nasal Cannula 2 08/30/17 16:30 103 14 114/72 (86) 99 Nasal Cannula 2 08/30/17 16:15 103 14 121/75 (90) 99 Nasal Cannula 2 08/30/17 13:02 98.4 102 18 129/76 (93) 94 I/O 08/30/17 08/30/17 08/30/17 08/31/17 08/31/17 08/31/17 07:00 15:00 23:00 07:00 15:00 23:00 Intake Total 600 ml Output Total 300 ml Balance 600 ml -300 ml Other 600 ml Output Urine Total 300 ml # Voids 1 # Bowel Movements 2 Laboratory Laboratory Tests Test 08/30/17 13:35 08/31/17 06:00 08/31/17 10:24 White Blood Count 10.0 7.4 Red Blood Count 4.82 4.43 Hemoglobin 9.7 8.9 Hematocrit 30.2 28.0 Mean Corpuscular Volume 62.6 63.2 Mean Corpuscular Hemoglobin 20.1 20.1 Mean Corpuscular Hemoglobin Concent 32.0 31.8 Red Cell Distribution Width 23.2 22.9 Platelet Count 169 169 Mean Platelet Volume 10.4 10.9 Neutrophils (%) (Auto) 83.4 73.0 Lymphocytes (%) (Auto) 11.5 19.5 Monocytes (%) (Auto) 4.8 6.7 Eosinophils (%) (Auto) 0.1 0.3 Basophils (%) (Auto) 0.2 0.5 Neutrophils # (Auto) 8.4 5.4 Lymphocytes # (Auto) 1.2 1.4 Monocytes # (Auto) 0.5 0.5 Eosinophils # (Auto) 0.0 0.0 Basophils # (Auto) 0.0 0.0 CBC Comment AUTO DIFF AUTO DIFF Differential Comment AUTO DIFF CONFIRMED AUTO DIFF CONFIRMED Platelet Estimate NORMAL NORMAL Platelet Morphology Comment ENLARGED ENLARGED Ovalocytes 1+ Blood Urea Nitrogen 10 8 Creatinine 0.83 0.72 Random Glucose 148 92 Calcium Level 9.0 8.5 Sodium Level 135 137 Potassium Level 3.2 3.2 Chloride Level 98 101 Carbon Dioxide Level 25.9 26.5 Anion Gap 11 10 Estimat Glomerular Filtration Rate 74 87 Date/Time Source Procedure Growth Status 08/29/17 19:30 Urine Random Urine Urine Culture - Final Escherichia Coli Citrobacter Koseri Complete Imaging Last Impressions Abdomen/Pelvis CT 08/29/172008 Signed Impressions: Service Date/Time: Tuesday, August 29, 2017 20:19 - CONCLUSION: 1. Mild constipation. Hepatomegaly to 23.4 cm with fatty infiltration. 2. Fat- containing umbilical hernia measuring about 3 cm. 3. Small hiatal hernia. Je Zapata MD Head CT 08/29/171947 Signed Impressions: Service Date/Time: Tuesday, August 29, 2017 20:16 - CONCLUSION: 1. No acute intracranial abnormalities. Je Zapata MD Chest X-Ray 08/29/171913 Signed Impressions: Service Date/Time: Tuesday, August 29, 2017 19:48 - CONCLUSION: No acute disease. Je Zapata MD Physical Exam HEENT: Normocephalic; atraumatic CHEST: Even/unlabored CARDIAC: RRR ABDOMEN: Distended, soft, upper abdominal tenderness, bowel sounds active SKIN: Normal; no rash; no jaundice. PLANISHER: No focal deficits; alert and oriented times three. (Alexa Monroe) Assessment and Plan Plan ASSESSMENT - upper quadrant pain, n/v - unclear etiology could be gastroparesis vs gastritis. hx gastroparesis with borderline abnormal test 10/2016 last EGD 10/[address] Martinez showed duodenitis, esophagitis, hiatal hernia , path benign. SHe does not take anything for gastroparesis. SHe has taken reglan in past and says it helped. - hematemesis - scant blood in emesis yesterday after mult episodes vomiting. could be small tear - anemis - microcytic likely multifactorial GES (October 2016) --> Delayed lag phase otherwise normal gastric emptying. CT abdomen and pelvis (08/29) --> Mild constipation. Hepatomegaly to 23.4 cm with fatty infiltration. Fat-containing umbilical hernia measuring about 3cm. Small hiatal hernia. (08/31) --> Pt complaining of continued upper abdominal pain today, states worse with movement. Denies relation to food. Tolerating liquid diet. Intermittent nausea, denies emesis. Reports 2 BMs this morning, states first was black and hard and the second was diarrhea, denies BRB. S/P EGD yesterday --> Gastritis. Esophagitis distal esophagus. Hiatal hernia. Biopsy pending. Drop in H/H noted today 8.9/28 from 9.7/30.2 yesterday. Increased LFTs, fatty liver noted on CT, no recheck since Monday. Hypothyroid- TSH 13.5- correction per attending MIGUEL- GFR improving PLAN - Full liquid diet - Monitor H/H - If H/H continues to drop could consider SBFT - EGD biopsy pending - DC Protonix gtt - Protonix PO BID - Reglan PRN nausea - Thyroid replacement per attending - Repeat LFTs - Further recommendations based on clinical course Pt has been seen and examined by myself and Dr. Payne and this note is written on her behalf (Alexa Monroe) Physician Comments seen, examined agree with above mrcp colonoscopy op-anemia (Jia Payne MD) Alexa Monroe Aug 31, 2017 12:09 Jia Payne MD Aug 31, 2017 15:30
[2017-08-31 12:10] VITALS: BP 156/96; PULSE 89; RESP 18; TEMP 98.6; O2SAT 94
--- NOTE | 2017-08-31 13:59 | HHI.FPPN ---
Subjective Remarks c/o vomiting afraid to eat took some sips liqs d/w RN mental health consultant reports reviewed c/o severe abdom pain over hernia site, wants to see a surgeon Objective Vitals Vital Signs Date Time Temp Pulse Resp B/P (MAP) Pulse Ox O2 Delivery O2 Flow Rate FiO2 08/31/17 12:10 98.6 89 18 156/96 (116) 94 08/31/17 07:41 98.8 90 18 143/86 (105) 95 08/31/17 03:18 98.4 101 17 137/81 (99) 93 08/30/17 23:00 98.5 109 17 135/76 (95) 93 08/30/17 22:10 18 08/30/17 22:00 21 08/30/17 19:38 98.7 91 18 136/84 (101) 94 08/30/17 18:40 98.2 106 18 141/89 (106) 96 08/30/17 16:45 106 14 101/86 (91) 99 Nasal Cannula 2 08/30/17 16:40 97.7 104 14 121/74 (90) 99 Nasal Cannula 2 08/30/17 16:30 103 14 114/72 (86) 99 Nasal Cannula 2 08/30/17 16:15 103 14 121/75 (90) 99 Nasal Cannula 2 I/O 08/30/17 08/30/17 08/30/17 08/31/17 08/31/17 08/31/17 07:00 15:00 23:00 07:00 15:00 23:00 Intake Total 600 ml Output Total 300 ml Balance 600 ml -300 ml Other 600 ml Output Urine Total 300 ml # Voids 1 # Bowel Movements 2 Result Diagram: 08/31/17 1024 08/31/17 0600 Imaging Last 72 hours Impressions Abdomen/Pelvis CT 08/29/172008 Signed Impressions: Service Date/Time: Tuesday, August 29, 2017 20:19 - CONCLUSION: 1. Mild constipation. Hepatomegaly to 23.4 cm with fatty infiltration. 2. Fat- containing umbilical hernia measuring about 3 cm. 3. Small hiatal hernia. Je Zapata MD Head CT 08/29/171947 Signed Impressions: Service Date/Time: Tuesday, August 29, 2017 20:16 - CONCLUSION: 1. No acute intracranial abnormalities. Je Zapata MD Chest X-Ray 08/29/171913 Signed Impressions: Service Date/Time: Tuesday, August 29, 2017 19:48 - CONCLUSION: No acute disease. Je Zapata MD Medications and IVs Current Medications Medications (Trade) Dose Ordered Sig/Viviane Route Start Time Stop Time Status Last Admin (Albuterol Neb) 2.5 mg Q4HR NEB PRN NEB 08/29/17 22:00 (Catapres) 0.1 mg DAILY PO 08/30/17 09:00 08/31/17 11:33 (Cymbalta Dr) 20 mg DAILY PO 08/30/17 09:00 08/30/17 09:14 (Flovent Hfa 220 Mcg Inh) 1 puff BID INH 08/30/17 09:00 08/31/17 11:04 (Lyrica) 100 mg HS PO 08/29/17 22:00 (Prinivil) 40 mg DAILY PO 08/30/17 09:00 08/31/17 11:33 (NS Flush) 2 ml UNSCH PRN IV FLUSH 08/29/17 22:00 (NS Flush) 2 ml BID IV FLUSH 08/30/17 09:00 08/31/17 11:05 (Tylenol) 650 mg Q4H PRN PO 08/29/17 22:00 (Zofran Inj) 4 mg Q6H PRN IVP 08/29/17 22:00 08/30/17 09:36 (Reglan Inj) 5 mg Q6H PRN IV PUSH 08/29/17 22:00 08/31/17 11:04 (Compazine Supp) 25 mg Q12H PRN RECTAL 08/29/17 22:00 (Ambien) 5 mg HS PRN PO 08/29/17 22:00 08/31/17 01:58 (Narcan Inj) 0.4 mg UNSCH PRN IV PUSH 08/29/17 22:00 (Josefina-Colace) 1 tab BID PO 08/30/17 09:00 08/30/17 09:14 (Milk Of Magnesia Liq) 30 ml Q12H PRN PO 08/29/17 22:00 (Senokot) 17.2 mg Q12H PRN PO 08/29/17 22:00 (Dulcolax Supp) 10 mg DAILY PRN RECTAL 08/29/17 22:00 (Lactulose Liq) 30 ml DAILY PRN PO 08/29/17 22:00 (Ativan Inj) 0.5 mg Q6H PRN IV PUSH 08/29/17 22:00 08/29/17 22:25 (Ativan) 0.5 mg Q8H PRN PO 08/29/17 22:00 (Apresoline Inj) 20 mg Q4H PRN IV PUSH 08/29/17 22:00 08/30/17 05:40 (Catapres) 0.1 mg Q6H PRN PO 08/29/17 22:00 (Haldol Inj) 5 mg Q4H PRN IM 08/29/17 22:00 08/30/17 09:36 (Morphine Inj) 5 mg Q4H PRN IV PUSH 08/29/17 22:00 08/30/17 20:50 (D50w (Vial) Inj) 50 ml UNSCH PRN IV PUSH 08/29/17 22:00 (Glucagon Inj) 1 mg UNSCH PRN OTHER 08/29/17 22:00 (NovoLOG SUPPLEMENTAL SCALE) 1 ACHS SLIDING SCALE SQ 08/30/17 08:00 Potassium Chloride/Dextrose/ Sod Cl 1,000 ml @ 42 mls/hr [id number] IV 08/29/17 22:00 08/30/17 21:39 Miscellaneous Information ALL NURSING DEPARTME... UNSCH PRN .XX 08/30/17 16:15 08/31/17 16:14 (Protonix) 40 mg BID PO 08/31/17 21:00 A/P Assessment and Plan ASSESSMENT AND PLAN: 1. Gastrointestinal bleed and hematemesis likely due to esophagitis on EGD by dr Payne 2. Gastroparesis with vomiting 3. Gastritis. 4. Lupus syndrome. 5. Chronic pain syndrome. 6. Urgent hypertension. 7. Diabetes. 8. Asthma. 9. Carpal tunnel syndrome, status post recent carpal tunnel release with sutures still intact. 10. Transient ischemic accident history. 11. Panic disorder. 12. hypokalemia: start qd kcl, continue ivf w K 13. Abdominal pain 14. Umbilical hernia w severe pain PLAN: surg consult for umbilical hernia with severe pain D5 IV fluids as she is n.p.o. Sliding scale insulin. Start levothyroxine for new diagnosis hypothyroidism. CBC and BMP. Gastrointestinal prophylaxis - Protonix. Deep venous thrombosis prophylaxis: SCDs and TEDs and hold chemoprophylaxis due to hematemesis. P.r.n. nebulizers. Catapres p.r.n. Ativan p.r.n. Haldol p.r.n. for severe agitation. She has required this in the past and appears she will be needing it and discussed with nursing. Reglan and Zofran p.r.n. Follow up urine culture. Observation admission. 30 min spent with pt half of which was counseling and coordination of care. dispo: home w c maybe tomorrow Problem List: (1) Hypothyroidism ICD Codes: E03.9 - Hypothyroidism, unspecified Status: Acute (2) Hematemesis ICD Codes: K92.0 - Hematemesis Status: Acute (3) Vomiting ICD Codes: R11.10 - Vomiting, unspecified Status: Acute (4) Abdominal pain ICD Codes: R10.9 - Unspecified abdominal pain Status: Acute (5) Anemia ICD Codes: D64.9 - Anemia, unspecified Status: Acute (6) Acute asthma exacerbation ICD Codes: J45.901 - Unspecified asthma with (acute) exacerbation Status: Acute (7) Gastroparesis ICD Codes: K31.84 - Gastroparesis Status: Acute (8) Muscle spasm ICD Codes: M62.838 - Other muscle spasm Status: Acute (9) Chest wall pain ICD Codes: R07.89 - Other chest pain Status: Acute (10) Cephalgia ICD Codes: R51 - Headache Status: Acute (11) Migraine headache ICD Codes: G43.909 - Migraine, unspecified, not intractable, without status migrainosus Status: Acute (12) HTN (hypertension) ICD Codes: I10 - Essential (primary) hypertension Status: Chronic (13) Diabetes ICD Codes: E11.9 - Type 2 diabetes mellitus without complications Status: Chronic (14) Hypokalemia ICD Codes: E87.6 - Hypokalemia Status: Acute (15) Fibromyalgia ICD Codes: M79.7 - Fibromyalgia Status: Acute Problem Qualifiers (1) Hypothyroidism: Qualified Codes: E03.9 - Hypothyroidism, unspecified (2) Hematemesis: Qualified Codes: K92.0 - Hematemesis Reddy,Bubba D. MD Aug 31, 2017 13:59
[2017-08-31] MEDS: POTASSIUM CHLORIDE 25 MEQ EFFERVESCENT TAB PO SCH (14:52)
[2017-08-31 15:39] VITALS: BP 142/82; PULSE 95; RESP 19; TEMP 99; O2SAT 96
[2017-08-31] MEDS: ONDANSETRON HCL 4 MG/2 ML VIAL IVP PRN (15:54)
[2017-08-31] MEDS: MORPHINE SULFATE 8 MG/ML INJ IV PUSH PRN ×2 (15:55→20:53)
--- NOTE | 2017-08-31 17:06 | PD.CONS ---
cc: Je King MD [facility] Service CONSULTATION NOTE FOR SURGICAL ATTENDING, DR. JE KING General Surgery Consult Requested By Dr. Reddy Reason for Consult Abdominal hernia; abdominal pain Primary Care Physician Bubba Reddy MD History of Present Illness This is a 44 year old female with a past medical history of lupus, gastritis, gastroparesis, diabetes mellitus, asthma, panic disorder, TIAs and carpal tunnel syndrome. She came to the ED with complains of abdominal pain with associated nausea and vomiting. She states that she has had on and off abdominal pain for about one year. She is followed by her PCP Dr. Reddy as an outpatient. The patient had a CT abdomen/pelvis Marichuy night that showed mild constipation and a fat containing umbilical hernia. The patient had an EGD yesterday that showed gastritis and a small hiatal hernia. The patient is currently tolerating clear liquids. A General Surgery consultation has been requested. Review of Systems Constitutional: COMPLAINS OF: Fatigue, DENIES: Change in appetite Endocrine: DENIES: Heat/cold intolerance, Polyphagia Eyes: DENIES: Diplopia, Eye inflammation Ears, nose, mouth, throat: DENIES: Hearing loss, Vertigo Respiratory: DENIES: Cough Cardiovascular: DENIES: Chest pain Gastrointestinal: COMPLAINS OF: Abdominal pain, Constipation, Nausea, DENIES: Vomiting Genitourinary: DENIES: Urinary incontinence Musculoskeletal: DENIES: Joint pain Integumentary: DENIES: Abnormal pigmentation Hematologic/lymphatic: DENIES: Bruising Immunologic/allergic: DENIES: Eczema Neurologic: DENIES: Headache, Localized weakness Psychiatric: DENIES: Mood changes, Depression, Hallucinations Past Family Social History Past Medical History Lupus Gastritis Gastroparesis Diabetes mellitus Asthma Panic disorder TIA Carpel tunnel syndrome Past Surgical History Laparoscopic cholecystectomy in [place] about 3 years ago EGDs Carpel tunnel release ---- LEFT hand on 07/21/17; RIGHT hand on 07/31/17 Reported Medications Atrovent nebulizer Ventolin Albuterol Clonidine Lisinopril Mobic Lyrica Duloxetine Lorazepam Flovent Metformin Norvolin Allergies: Coded Allergies: broccoli (Verified Allergy, Severe, Diarrhea, 08/29/17) RASH cephalexin (Verified Allergy, Severe, Diarrhea, 08/29/17) ALSO RASH iodine (Verified Allergy, Severe, Anaphylaxis, 08/29/17) potassium iodide (Verified Allergy, Severe, Anaphylaxis, 08/29/17) povidone-iodine (Verified Allergy, Severe, Anaphylaxis, 08/29/17) shellfish derived (Verified Allergy, Severe, Anaphylaxis, 08/29/17) sodium iodide (Verified Allergy, Severe, Anaphylaxis, 08/29/17) sodium iodide (Verified Allergy, Severe, Anaphylaxis, 08/29/17) theophylline (Verified Allergy, Severe, Anaphylaxis, 08/29/17) aminophylline (Verified Allergy, Intermediate, MAKES HER HYPER ELEVATES BP , 08/29/17) naproxen (Verified Allergy, Intermediate, Rash, 08/29/17) penicillin G (Verified Allergy, Intermediate, RASH, 08/29/17) aminopyrine (Verified Allergy, Unknown, 08/29/17) DENIES ALLERGY azathioprine (Verified Allergy, Unknown, 08/29/17) diphenhydramine (Verified Adverse Reaction, Mild, palpitations, 08/29/17) pushed too quickly ibuprofen (Verified Adverse Reaction, Mild, 08/29/17) stomach pain Uncoded Allergies: Eggplant (Allergy, Intermediate, 10/09/16) AMRNOHILSON (Adverse Reaction, Severe, 10/09/16) .. Active Ordered Medications Current Medications Medications (Trade) Dose Ordered Sig/Viviane Route Start Time Stop Time Status Last Admin (Albuterol Neb) 2.5 mg Q4HR NEB PRN NEB 08/29/17 22:00 (Catapres) 0.1 mg DAILY PO 08/30/17 09:00 08/31/17 11:33 (Cymbalta Dr) 20 mg DAILY PO 08/30/17 09:00 08/30/17 09:14 (Flovent Hfa 220 Mcg Inh) 1 puff BID INH 08/30/17 09:00 08/31/17 11:04 (Lyrica) 100 mg HS PO 08/29/17 22:00 (Prinivil) 40 mg DAILY PO 08/30/17 09:00 08/31/17 11:33 (NS Flush) 2 ml UNSCH PRN IV FLUSH 08/29/17 22:00 (NS Flush) 2 ml BID IV FLUSH 08/30/17 09:00 08/31/17 11:05 (Tylenol) 650 mg Q4H PRN PO 08/29/17 22:00 (Zofran Inj) 4 mg Q6H PRN IVP 08/29/17 22:00 08/31/17 15:54 (Reglan Inj) 5 mg Q6H PRN IV PUSH 08/29/17 22:00 08/31/17 11:04 (Compazine Supp) 25 mg Q12H PRN RECTAL 08/29/17 22:00 (Ambien) 5 mg HS PRN PO 08/29/17 22:00 08/31/17 01:58 (Narcan Inj) 0.4 mg UNSCH PRN IV PUSH 08/29/17 22:00 (Josefina-Colace) 1 tab BID PO 08/30/17 09:00 08/30/17 09:14 (Milk Of Magnesia Liq) 30 ml Q12H PRN PO 08/29/17 22:00 (Senokot) 17.2 mg Q12H PRN PO 08/29/17 22:00 (Dulcolax Supp) 10 mg DAILY PRN RECTAL 08/29/17 22:00 (Lactulose Liq) 30 ml DAILY PRN PO 08/29/17 22:00 (Ativan Inj) 0.5 mg Q6H PRN IV PUSH 08/29/17 22:00 08/29/17 22:25 (Ativan) 0.5 mg Q8H PRN PO 08/29/17 22:00 (Apresoline Inj) 20 mg Q4H PRN IV PUSH 08/29/17 22:00 08/30/17 05:40 (Catapres) 0.1 mg Q6H PRN PO 08/29/17 22:00 (Haldol Inj) 5 mg Q4H PRN IM 08/29/17 22:00 08/30/17 09:36 (Morphine Inj) 5 mg Q4H PRN IV PUSH 08/29/17 22:00 08/31/17 15:55 (D50w (Vial) Inj) 50 ml UNSCH PRN IV PUSH 08/29/17 22:00 (Glucagon Inj) 1 mg UNSCH PRN OTHER 08/29/17 22:00 (NovoLOG SUPPLEMENTAL SCALE) 1 ACHS SLIDING SCALE SQ 08/30/17 08:00 Potassium Chloride/Dextrose/ Sod Cl 1,000 ml @ 42 mls/hr [id number] IV 08/29/17 22:00 08/30/17 21:39 (Protonix) 40 mg BID PO 08/31/17 21:00 (K-Lyte Cl Eff) 25 meq DAILY PO 08/31/17 14:00 08/31/17 14:52 (Synthroid) 50 mcg DAILY@0600 PO 09/01/17 06:00 Family History Non contributory Social History Denies tobacco use Denies ETOH use Denies illicit drug use Lives her locally with her . Physical Exam Vital Signs Vital Signs Date Time Temp Pulse Resp B/P (MAP) Pulse Ox O2 Delivery O2 Flow Rate FiO2 08/31/17 15:39 99.0 95 19 142/82 (102) 96 08/31/17 12:10 98.6 89 18 156/96 (116) 94 08/31/17 07:41 98.8 90 18 143/86 (105) 95 08/31/17 03:18 98.4 101 17 137/81 (99) 93 08/30/17 23:00 98.5 109 17 135/76 (95) 93 08/30/17 22:10 18 08/30/17 22:00 21 08/30/17 19:38 98.7 91 18 136/84 (101) 94 08/30/17 18:40 98.2 106 18 141/89 (106) 96 Physical Exam GENERAL: 47 year old female resting in bed in mild acute discomfort secondary to nausea and abdominal pain SKIN: Warm and dry. HEAD: Atraumatic. Normocephalic. EYES: Pupils equal and round. No scleral icterus. No injection or drainage. ENT: No nasal bleeding or discharge. Mucous membranes pink and moist. NECK: Trachea midline. CARDIOVASCULAR: Regular rate and rhythm. RESPIRATORY: No accessory muscle use. Clear to auscultation. Breath sounds equal bilaterally. GASTROINTESTINAL: Abdomen soft, non distended; obese abdomen; mild tenderness to palpation in LLQ; no tenderness in LUQ; RUQ with moderate tenderness to palpation; mild RLQ tenderness with palpation; no guarding. Very small umbilical hernia; faint laparoscopic scars well healed MUSCULOSKELETAL: Extremities without clubbing, cyanosis, or edema. No obvious deformities. NEUROLOGICAL: Awake and alert. No obvious cranial nerve deficits. Motor grossly within normal limits. Five out of 5 muscle strength in the arms and legs. Normal speech. PSYCHIATRIC: Appropriate mood and affect; insight and judgment normal. Laboratory Laboratory Tests Test 08/31/17 06:00 08/31/17 10:24 Blood Urea Nitrogen 8 Creatinine 0.72 Random Glucose 92 Calcium Level 8.5 Sodium Level 137 Potassium Level 3.2 Chloride Level 101 Carbon Dioxide Level 26.5 Anion Gap 10 Estimat Glomerular Filtration Rate 87 White Blood Count 7.4 Red Blood Count 4.43 Hemoglobin 8.9 Hematocrit 28.0 Mean Corpuscular Volume 63.2 Mean Corpuscular Hemoglobin 20.1 Mean Corpuscular Hemoglobin Concent 31.8 Red Cell Distribution Width 22.9 Platelet Count 169 Mean Platelet Volume 10.9 Neutrophils (%) (Auto) 73.0 Lymphocytes (%) (Auto) 19.5 Monocytes (%) (Auto) 6.7 Eosinophils (%) (Auto) 0.3 Basophils (%) (Auto) 0.5 Neutrophils # (Auto) 5.4 Lymphocytes # (Auto) 1.4 Monocytes # (Auto) 0.5 Eosinophils # (Auto) 0.0 Basophils # (Auto) 0.0 CBC Comment AUTO DIFF Differential Comment AUTO DIFF CONFIRMED Platelet Estimate NORMAL Platelet Morphology Comment ENLARGED Date/Time Source Procedure Growth Status 08/29/17 19:30 Urine Random Urine Urine Culture - Final Escherichia Coli Citrobacter Koseri Complete Result Diagram: 08/31/17 1024 08/31/17 0600 Imaging Last 48 hours Impressions Abdomen/Pelvis CT 08/29/172008 Signed Impressions: Service Date/Time: Tuesday, August 29, 2017 20:19 - CONCLUSION: 1. Mild constipation. Hepatomegaly to 23.4 cm with fatty infiltration. 2. Fat- containing umbilical hernia measuring about 3 cm. 3. Small hiatal hernia. Je Zapata MD Head CT 08/29/171947 Signed Impressions: Service Date/Time: Tuesday, August 29, 2017 20:16 - CONCLUSION: 1. No acute intracranial abnormalities. Je Zapata MD Chest X-Ray 08/29/171913 Signed Impressions: Service Date/Time: Tuesday, August 29, 2017 19:48 - CONCLUSION: No acute disease. Je Zapata MD Assessment and Plan Problem List: (1) HTN (hypertension) ICD Codes: I10 - Essential (primary) hypertension Status: Chronic (2) Gastroparesis ICD Codes: K31.84 - Gastroparesis Status: Acute (3) Diabetes ICD Codes: E11.9 - Type 2 diabetes mellitus without complications Status: Chronic (4) Hypokalemia ICD Codes: E87.6 - Hypokalemia Status: Acute (5) Urinary tract infection ICD Codes: N39.0 - Urinary tract infection, site not specified Status: Acute (6) UTI (urinary tract infection) ICD Codes: N39.0 - Urinary tract infection, site not specified Status: Acute (7) Gastroenteritis ICD Codes: K52.9 - Noninfective gastroenteritis and colitis, unspecified Status: Acute (8) Abdominal pain ICD Codes: R10.9 - Unspecified abdominal pain Status: Acute (9) Umbilical hernia ICD Codes: K42.9 - Umbilical hernia without obstruction or gangrene Assessment and Plan 47 year old female with abdominal pain; small umbilical hernia on imaging; gastritis on EGD -Clear liquids; advance as tolerated -MRCP ordered -CT reviewed-- patient with small umbilical hernia on CT scan; non obstructive symptoms -Patient can benefit from colonoscopy --- she states she has never had one -Will continue to follow but no surgical intervention planned -Thank you for this consult; We will continue to follow Discussed Condition With Dr. Christine Chaudhry Attending Statement NOTE FOR SURGICAL ATTENDING, DR. JE KING Patient seen Appears to have more pain from her gastritis esophagitis that her small umbilical hernia She has anemia needs a colonoscopy She has multiple other medical issues that I do not think the hernia is affecting We'll follow I agree with above assessment and plan. The exam, history, and the medical decision-making described in the above note were completed with the assistance of the mid-level provider. I reviewed and agree with the findings presented. I attest that I had a [id number] encounter with the patient on the same day, and personally performed and documented my assessment and findings in the medical record. The following services were provided during this hospital visit: Chart data review, vital sign assessments/reviewing monitor data Review of consultations notes if present. Medication orders/review and/or management Ordering and/or reviewing lab tests Ordering and/or interpreting/reviewing x-rays and/or diagnostic studies Care of the patient and discussion of the patient with the care team Documentation time To help prompt me to consider important information that might be impacting today's encounter and assessment, information from prior notes written by myself or my colleagues may have been "brought forward/copy and pasted" into today's note. Problem Qualifiers (1) Urinary tract infection: Qualified Codes: N39.0 - Urinary tract infection, site not specified; R31.9 - Hematuria, unspecified (2) Abdominal pain: Qualified Codes: R10.10 - Upper abdominal pain, unspecified Goldie Adan/First Rays[employer] LITTLE Aug 31, 2017 17:06 Je King MD Sep 01, 2017 15:30
[2017-08-31 20:43] VITALS: O2SAT 95
[2017-08-31 20:44] VITALS: BP 169/90; PULSE 90; RESP 16; TEMP 98.4; O2SAT 95
[2017-08-31] MEDS: PREGABALIN 25 MG CAP PO SCH (20:54)
[2017-08-31] MEDS: D5-1/2 NS + KCL 10 MEQ INJ 1,000 ML IV SCH (21:38)
[2017-08-31] MEDS: PANTOPRAZOLE SOD 40 MG DELAYED RELEASE TAB PO SCH (22:17)
--- NOTE | 2017-08-31 23:11 | RADRPT ---
EXAM DATE/TIME: 08/31/2017 21:29 [place] COMPARISON: No previous studies available for comparison. INDICATIONS : Abdominal pain. Right upper abdomen pain for about one month. MEDICAL HISTORY : Hypertension. Diabetes mellitus type 2. Gastroparesis. Lupus. SURGICAL HISTORY : Cholecystectomy. section. ENCOUNTER: Initial ACUITY: 1 month PAIN SCORE: 9/10 LOCATION: Right upper quadrant TECHNIQUE: Multiplanar, multisequence magnetic resonance imaging of the abdomen was performed. High-resolution 3D dataset was utilized to reconstruct maximum-intensity projection (MIP) images. FINDINGS: Common bile duct measures about 11 mm in diameter. Postoperative cholecystectomy. Fatty liver enlarge d at 24 cm. The pancreatic duct has normal caliber. No evidence for choledocholithiasis. Visualized portions of t he spleen, kidneys and adrenals are unremarkable. No free fluid. CONCLUSION: 1. Postop cholecystectomy with mild biliary ductal dilatation to 11 mm. No evidence for choledocholit hiasis. 2. Fatty liver enlarged to 24 cm. Je Zapata MD on August 31, 2017 at 23:05 Board Certified Radiologist. This report was verified electronically.
[2017-09-01] VITALS (7 sets, daily range): BP systolic 134–172; BP diastolic 76–96; PULSE 82–96; RESP 16–20; TEMP 97.5–99.2; O2SAT 94–98
[2017-09-01] MEDS: ONDANSETRON HCL 4 MG/2 ML VIAL IVP PRN ×3 (01:54→19:15)
[2017-09-01] MEDS: MORPHINE SULFATE 8 MG/ML INJ IV PUSH PRN ×4 (04:47→23:25)
[2017-09-01] MEDS: LEVOTHYROXINE SODIUM 50 MCG TAB PO SCH (06:00)
[2017-09-01] MEDS: INSULIN ASPART SUPPLEMENTAL SCALE SQ SCH ×4 (08:00→22:27)
[2017-09-01 08:11] LABS: AUTOMATED NEUTROPHIL # 5.1 TH/MM3 (1.8-7.7); BASOPHIL % 0.6 % (0.0-2.0); EOSINOPHIL % 0.4 % (0.0-4.0); HEMATOCRIT 29.9 % (35.0-46.0); HEMOGLOBIN 9.5 GM/DL (11.6-15.3); LYMPH % 25.4 % (9.0-44.0); LYMPHOCYTE # 1.9 TH/MM3 (1.0-4.8); MEAN CELL VOLUME 63.4 FL (80.0-100.0); MEAN CORPUSCULAR HEMOGLOBIN 20.1 PG (27.0-34.0); MEAN CORPUSCULAR HGB CONC 31.7 % (32.0-36.0); MEAN PLATELET VOLUME 10.3 FL (7.0-11.0); MONO % 6.5 % (0.0-8.0); MONOCYTE # 0.5 TH/MM3 (0-0.9); NEUT % 67.1 % (16.0-70.0); PLATELET COUNT 177 TH/MM3 (150-450); RED BLOOD COUNT 4.71 MIL/MM3 (4.00-5.30); RED CELL DISTRIBUTION WIDTH 23.5 % (11.6-17.2); WHITE BLOOD COUNT 7.6 TH/MM3 (4.0-11.0)
[2017-09-01 08:19] LABS: BICARBONATE 28.4 MEQ/L (21.0-32.0); CALCIUM 8.8 MG/DL (8.5-10.1); CREATININE 0.71 MG/DL (0.50-1.00)
--- NOTE | 2017-09-01 08:52 | HHI.GIFU ---
Subjective Remarks Pt sleeping when I walked into room After being awakened complaining of continued upper abdominal pain States pain is not improving Continued nausea, dry heaving, no emesis No BM since last reported yesterday morning (Alexa Monroe) Objective Vitals I&O Vital Signs Date Time Temp Pulse Resp B/P (MAP) Pulse Ox O2 Delivery O2 Flow Rate FiO2 09/01/17 07:40 98.5 91 19 172/96 (121) 94 09/01/17 05:24 18 09/01/17 04:09 98.2 96 20 170/89 (116) 97 09/01/17 00:15 98.1 94 16 149/86 (107) 94 08/31/17 20:44 98.4 90 16 169/90 (116) 95 08/31/17 20:43 95 08/31/17 15:39 99.0 95 19 142/82 (102) 96 08/31/17 12:10 98.6 89 18 156/96 (116) 94 I/O 08/31/17 08/31/17 08/31/17 09/01/17 09/01/17 09/01/17 07:00 15:00 23:00 07:00 15:00 23:00 Intake Total 480 ml Output Total 300 ml 200 ml Balance -300 ml -200 ml 480 ml Intake Oral 480 ml Output Urine Total 300 ml Stool Total 200 ml # Voids 2 3 # Bowel Movements 2 Laboratory Laboratory Tests Test 08/31/17 10:24 09/01/17 07:25 White Blood Count 7.4 7.6 Red Blood Count 4.43 4.71 Hemoglobin 8.9 9.5 Hematocrit 28.0 29.9 Mean Corpuscular Volume 63.2 63.4 Mean Corpuscular Hemoglobin 20.1 20.1 Mean Corpuscular Hemoglobin Concent 31.8 31.7 Red Cell Distribution Width 22.9 23.5 Platelet Count 169 177 Mean Platelet Volume 10.9 10.3 Neutrophils (%) (Auto) 73.0 67.1 Lymphocytes (%) (Auto) 19.5 25.4 Monocytes (%) (Auto) 6.7 6.5 Eosinophils (%) (Auto) 0.3 0.4 Basophils (%) (Auto) 0.5 0.6 Neutrophils # (Auto) 5.4 5.1 Lymphocytes # (Auto) 1.4 1.9 Monocytes # (Auto) 0.5 0.5 Eosinophils # (Auto) 0.0 0.0 Basophils # (Auto) 0.0 0.0 CBC Comment AUTO DIFF AUTO DIFF Differential Comment AUTO DIFF CONFIRMED Platelet Estimate NORMAL Platelet Morphology Comment ENLARGED Blood Urea Nitrogen 6 Creatinine 0.71 Random Glucose 122 Calcium Level 8.8 Sodium Level 136 Potassium Level 3.0 Chloride Level 98 Carbon Dioxide Level 28.4 Anion Gap 10 Estimat Glomerular Filtration Rate 89 Date/Time Source Procedure Growth Status 08/29/17 19:30 Urine Random Urine Urine Culture - Final Escherichia Coli Citrobacter Koseri Complete Imaging Last Impressions Cholangiopancreatography MRI 08/31/17 0000 Signed Impressions: Service Date/Time: August 21:29 - CONCLUSION: 1. Postop cholecystectomy with mild biliary ductal dilatation to 11 mm. No evidence for choledocholithiasis. 2. Fatty liver enlarged to 24 cm. Je Zapata MD Abdomen/Pelvis CT 08/29/172008 Signed Impressions: Service Date/Time: Tuesday, August 29, 2017 20:19 - CONCLUSION: 1. Mild constipation. Hepatomegaly to 23.4 cm with fatty infiltration. 2. Fat- containing umbilical hernia measuring about 3 cm. 3. Small hiatal hernia. Je Zapata MD Head CT 08/29/171947 Signed Impressions: Service Date/Time: Tuesday, August 29, 2017 20:16 - CONCLUSION: 1. No acute intracranial abnormalities. Je Zapata MD Chest X-Ray 08/29/171913 Signed Impressions: Service Date/Time: Tuesday, August 29, 2017 19:48 - CONCLUSION: No acute disease. Je Zapata MD Physical Exam HEENT: Normocephalic; atraumatic CHEST: Even/unlabored CARDIAC: RRR ABDOMEN: Distended, soft, upper abdominal tenderness, bowel sounds active SKIN: Normal; no rash; no jaundice. F[employer]: No focal deficits; alert and oriented times three. (Alexa Monroe) Assessment and Plan Plan ASSESSMENT - upper quadrant pain, n/v - unclear etiology could be gastroparesis vs gastritis. hx gastroparesis with borderline abnormal test 10/2016 last EGD 10/[address] Martinez showed duodenitis, esophagitis, hiatal hernia , path benign. SHe does not take anything for gastroparesis. SHe has taken reglan in past and says it helped. - hematemesis - scant blood in emesis yesterday after mult episodes vomiting. could be small tear - anemis - microcytic likely multifactorial GES (October 2016) --> Delayed lag phase otherwise normal gastric emptying. CT abdomen and pelvis (08/29) --> Mild constipation. Hepatomegaly to 23.4 cm with fatty infiltration. Fat-containing umbilical hernia measuring about 3cm. Small hiatal hernia. (08/31) --> Pt complaining of continued upper abdominal pain today, states worse with movement. Denies relation to food. Tolerating liquid diet. Intermittent nausea, denies emesis. Reports 2 BMs this morning, states first was black and hard and the second was diarrhea, denies BRB. S/P EGD yesterday --> Gastritis. Esophagitis distal esophagus. Hiatal hernia. Biopsy pending. Drop in H/H noted today 8.9/28 from 9.7/30.2 yesterday. Increased LFTs, fatty liver noted on CT, no recheck since Monday. Hypothyroid- TSH 13.5- correction per attending MIGUEL- GFR improving (09/01) --> Pt comfortable and sleeping when I entered room. After waking her up she is complaining of continued upper abdominal pain. States pain is not improving. Continued nausea, seems to be just dry heaving because points to emesis bag and there is nothing in it. Pt with severe anxiety, nausea seems somewhat related to this. Pt is afraid to eat, has tolerated some liquids. MRCP noted --> Post op cholecystectomy with mild biliary ductal dilation to 11 mm. No evidence for choledocholithiasis. Fatty liver enlarged to 24 cm. H/H improved today. Currently 9.5/29.9. GS consult per pts request- they note umbilical hernia with non obstructive symptoms. No surgical interventions planned. PLAN - Clear liquid diet - Monitor H/H - EGD biopsy pending - Protonix PO BID - Carafate - Reglan PRN nausea - Thyroid replacement per attending - Repeat LFTs - Further recommendations based on clinical course Pt has been seen and examined by myself and Dr. Payne and this note is written on her behalf (Alexa Monroe) Physician Comments agre with above advance diet slowly (Jia Payne MD) Alexa Monroe Sep 01, 2017 08:52 Jia Payen MD Sep 01, 2017 20:16
[2017-09-01] MEDS: DOCUSATE SODIUM 50 MG/SENNA 8.6 MG TAB PO SCH ×2 (09:00→22:23)
--- NOTE | 2017-09-01 09:28 | HHI.FPPN ---
Subjective Remarks c/o n/v c/o midsternal burning c/o unable to take po very weak, looks ill, unable to sit up d/w RN Objective Vitals Vital Signs Date Time Temp Pulse Resp B/P (MAP) Pulse Ox O2 Delivery O2 Flow Rate FiO2 09/01/17 07:40 98.5 91 19 172/96 (121) 94 09/01/17 05:24 18 09/01/17 04:09 98.2 96 20 170/89 (116) 97 09/01/17 00:15 98.1 94 16 149/86 (107) 94 08/31/17 20:44 98.4 90 16 169/90 (116) 95 08/31/17 20:43 95 08/31/17 15:39 99.0 95 19 142/82 (102) 96 08/31/17 12:10 98.6 89 18 156/96 (116) 94 I/O 08/31/17 08/31/17 08/31/17 09/01/17 09/01/17 09/01/17 07:00 15:00 23:00 07:00 15:00 23:00 Intake Total 480 ml Output Total 300 ml 200 ml Balance -300 ml -200 ml 480 ml Intake Oral 480 ml Output Urine Total 300 ml Stool Total 200 ml # Voids 2 3 # Bowel Movements 2 Result Diagram: 09/01/17 0725 09/01/17 0725 Imaging Last 72 hours Impressions Cholangiopancreatography MRI 08/31/17 0000 Signed Impressions: Service Date/Time: August 21:29 - CONCLUSION: 1. Postop cholecystectomy with mild biliary ductal dilatation to 11 mm. No evidence for choledocholithiasis. 2. Fatty liver enlarged to 24 cm. Je Zapata MD Abdomen/Pelvis CT 08/29/172008 Signed Impressions: Service Date/Time: Tuesday, August 29, 2017 20:19 - CONCLUSION: 1. Mild constipation. Hepatomegaly to 23.4 cm with fatty infiltration. 2. Fat- containing umbilical hernia measuring about 3 cm. 3. Small hiatal hernia. Je Zapata MD Head CT 08/29/171947 Signed Impressions: Service Date/Time: Tuesday, August 29, 2017 20:16 - CONCLUSION: 1. No acute intracranial abnormalities. Je Zapata MD Chest X-Ray 08/29/171913 Signed Impressions: Service Date/Time: Tuesday, August 29, 2017 19:48 - CONCLUSION: No acute disease. Je Zapata MD Objective Remarks GENERAL: SKIN: Warm and dry. HEAD: Atraumatic. Normocephalic. EYES: Pupils equal and round. No scleral icterus. No injection or drainage. ENT: No nasal bleeding or discharge. Mucous membranes pink and moist. NECK: Trachea midline. No JVD. CARDIOVASCULAR: Regular rate and rhythm. RESPIRATORY: No accessory muscle use. Clear to auscultation. Breath sounds equal bilaterally. GASTROINTESTINAL: Abdomen soft, nondistended. Hepatic and splenic margins not palpable. TTP all quadrants 7/10 MUSCULOSKELETAL: Extremities without clubbing, cyanosis, or edema. No obvious deformities. NEUROLOGICAL: Awake and alert. No obvious cranial nerve deficits. Motor grossly within normal limits. 2 out of 5 muscle strength in the arms and legs. Normal speech. PSYCHIATRIC: Appropriate mood and affect; insight and judgment normal. Medications and IVs Current Medications Medications (Trade) Dose Ordered Sig/Viviane Route Start Time Stop Time Status Last Admin (Albuterol Neb) 2.5 mg Q4HR NEB PRN NEB 08/29/17 22:00 (Catapres) 0.1 mg DAILY PO 08/30/17 09:00 08/31/17 11:33 (Cymbalta Dr) 20 mg DAILY PO 08/30/17 09:00 08/30/17 09:14 (Flovent Hfa 220 Mcg Inh) 1 puff BID INH 08/30/17 09:00 08/31/17 20:54 (Lyrica) 100 mg HS PO 08/29/17 22:00 (Prinivil) 40 mg DAILY PO 08/30/17 09:00 08/31/17 11:33 (NS Flush) 2 ml UNSCH PRN IV FLUSH 08/29/17 22:00 (NS Flush) 2 ml BID IV FLUSH 08/30/17 09:00 08/31/17 20:53 (Tylenol) 650 mg Q4H PRN PO 08/29/17 22:00 (Zofran Inj) 4 mg Q6H PRN IVP 08/29/17 22:00 09/01/17 01:54 (Reglan Inj) 5 mg Q6H PRN IV PUSH 08/29/17 22:00 08/31/17 18:23 (Compazine Supp) 25 mg Q12H PRN RECTAL 08/29/17 22:00 (Ambien) 5 mg HS PRN PO 08/29/17 22:00 08/31/17 22:17 (Narcan Inj) 0.4 mg UNSCH PRN IV PUSH 08/29/17 22:00 (Josefina-Colace) 1 tab BID PO 08/30/17 09:00 08/30/17 09:14 (Milk Of Magnesia Liq) 30 ml Q12H PRN PO 08/29/17 22:00 (Senokot) 17.2 mg Q12H PRN PO 08/29/17 22:00 (Dulcolax Supp) 10 mg DAILY PRN RECTAL 08/29/17 22:00 (Lactulose Liq) 30 ml DAILY PRN PO 08/29/17 22:00 (Ativan Inj) 0.5 mg Q6H PRN IV PUSH 08/29/17 22:00 08/29/17 22:25 (Ativan) 0.5 mg Q8H PRN PO 08/29/17 22:00 (Apresoline Inj) 20 mg Q4H PRN IV PUSH 08/29/17 22:00 08/30/17 05:40 (Catapres) 0.1 mg Q6H PRN PO 08/29/17 22:00 (Haldol Inj) 5 mg Q4H PRN IM 08/29/17 22:00 08/30/17 09:36 (Morphine Inj) 5 mg Q4H PRN IV PUSH 08/29/17 22:00 09/01/17 04:47 (D50w (Vial) Inj) 50 ml UNSCH PRN IV PUSH 08/29/17 22:00 (Glucagon Inj) 1 mg UNSCH PRN OTHER 08/29/17 22:00 (NovoLOG SUPPLEMENTAL SCALE) 1 ACHS SLIDING SCALE SQ 08/30/17 08:00 Potassium Chloride/Dextrose/ Sod Cl 1,000 ml @ 42 mls/hr [id number] IV 08/29/17 22:00 08/30/17 21:39 (Protonix) 40 mg BID PO 08/31/17 21:00 08/31/17 22:17 (K-Lyte Cl Eff) 25 meq DAILY PO 08/31/17 14:00 08/31/17 14:52 (Synthroid) 50 mcg DAILY@0600 PO 09/01/17 06:00 (Carafate Liq) 1 gm ACHS PO 09/01/17 12:00 A/P Assessment and Plan ASSESSMENT AND PLAN: 1. Gastrointestinal bleed and hematemesis likely due to gastroparesis, and esophagitis on EGD 08/[address] Payne 2. Gastroparesis with vomiting 3. Gastritis. 4. Lupus syndrome. 5. Chronic pain syndrome due to lupus. 6. Urgent hypertension. 7. Diabetes. 8. Asthma. 9. Carpal tunnel syndrome, status post recent carpal tunnel release with sutures still intact. 10. Transient ischemic accident history. 11. Panic disorder. 12. hypokalemia: started qd kcl and increase it to bid, continue ivf w K 13. Abdominal pain 14. Umbilical hernia w severe pain: nonsurgical per surgeon PLAN: Start reglan ac/hs as this has helped immensely in the past as outpatient. D5 IV fluids w k Sliding scale insulin. Started levothyroxine for new diagnosis hypothyroidism. CBC and BMP. Gastrointestinal prophylaxis - Protonix. Deep venous thrombosis prophylaxis: SCDs and TEDs and hold chemoprophylaxis due to hematemesis. P.r.n. nebulizers. Catapres p.r.n. Ativan p.r.n. Haldol p.r.n. for severe agitation. She has required this in the past and appears she will be needing it and discussed with nursing. Reglan and Zofran p.r.n. Follow up urine culture. 30 min spent with pt half of which was counseling and coordination of care. PT has been obs, she is worsening and expect 3 d inpatient stay as this usually takes for her. PT would from dehydration w/o further inpt care. dispo: home w [facility] maybe tomorrow if taking po and medically stable. See me ALESHIA next week in my office, and have her come in Monday [phone]. Problem List: (1) Hypothyroidism ICD Codes: E03.9 - Hypothyroidism, unspecified Status: Acute (2) Hematemesis ICD Codes: K92.0 - Hematemesis Status: Acute (3) Vomiting ICD Codes: R11.10 - Vomiting, unspecified Status: Acute (4) Abdominal pain ICD Codes: R10.9 - Unspecified abdominal pain Status: Acute (5) Anemia ICD Codes: D64.9 - Anemia, unspecified Status: Acute (6) Acute asthma exacerbation ICD Codes: J45.901 - Unspecified asthma with (acute) exacerbation Status: Acute (7) Gastroparesis ICD Codes: K31.84 - Gastroparesis Status: Acute (8) Muscle spasm ICD Codes: M62.838 - Other muscle spasm Status: Acute (9) Chest wall pain ICD Codes: R07.89 - Other chest pain Status: Acute (10) Cephalgia ICD Codes: R51 - Headache Status: Acute (11) Migraine headache ICD Codes: G43.909 - Migraine, unspecified, not intractable, without status migrainosus Status: Acute (12) HTN (hypertension) ICD Codes: I10 - Essential (primary) hypertension Status: Chronic (13) Diabetes ICD Codes: E11.9 - Type 2 diabetes mellitus without complications Status: Chronic (14) Hypokalemia ICD Codes: E87.6 - Hypokalemia Status: Acute (15) Fibromyalgia ICD Codes: M79.7 - Fibromyalgia Status: Acute Problem Qualifiers (1) Hypothyroidism: Qualified Codes: E03.9 - Hypothyroidism, unspecified (2) Hematemesis: Qualified Codes: K92.0 - Hematemesis Bubba Reddy MD Sep 01, 2017 09:28
[2017-09-01] MEDS: POTASSIUM CHLORIDE 25 MEQ EFFERVESCENT TAB PO SCH ×2 (09:31→21:00)
[2017-09-01] MEDS: PANTOPRAZOLE SOD 40 MG DELAYED RELEASE TAB PO SCH ×2 (09:31→22:23)
[2017-09-01] MEDS: LISINOPRIL 20 MG TAB PO SCH (09:32)
[2017-09-01] MEDS: cloNIDine HCL 0.1 MG TAB PO SCH (09:32)
[2017-09-01] MEDS: SODIUM CHLORIDE 0.9% FLUSH 10 ML FLUSH IV FLUSH SCH ×2 (09:32→21:00)
[2017-09-01] MEDS: DULoxetine HCl DR 20 MG CAP PO SCH (09:32)
[2017-09-01] MEDS: FLUTICASONE PROPIONATE 220 MCG/ACT 12 GM INHALER INH SCH ×2 (09:32→22:24)
[2017-09-01 10:59] LABS: OVALOCYTES 1+ (NORMAL)
[2017-09-01] MEDS: SUCRALFATE 1 GM/10 ML CUP PO SCH ×3 (13:07→23:24)
[2017-09-01] MEDS: METOCLOPRAMIDE HCL 10 MG TAB PO SCH ×3 (13:07→22:21)
--- NOTE | 2017-09-01 15:51 | HHI.PR ---
cc: Rafa King MD Subjective Subjective Notes DAILY PROGRESS NOTE FOR SURGICAL ATTENDING, DR. RAFA KING Resting in bed Still with epigastric pain Objective Vitals/I&O Vital Signs Date Time Temp Pulse Resp B/P (MAP) Pulse Ox O2 Delivery O2 Flow Rate FiO2 09/01/17 15:28 98.0 88 18 139/79 (99) 98 08/30/17 22:00 21 08/30/17 16:45 Nasal Cannula 2 Labs Laboratory Tests Test 09/01/17 07:25 White Blood Count 7.6 Red Blood Count 4.71 Hemoglobin 9.5 Hematocrit 29.9 Mean Corpuscular Volume 63.4 Mean Corpuscular Hemoglobin 20.1 Mean Corpuscular Hemoglobin Concent 31.7 Red Cell Distribution Width 23.5 Platelet Count 177 Mean Platelet Volume 10.3 Neutrophils (%) (Auto) 67.1 Lymphocytes (%) (Auto) 25.4 Monocytes (%) (Auto) 6.5 Eosinophils (%) (Auto) 0.4 Basophils (%) (Auto) 0.6 Neutrophils # (Auto) 5.1 Lymphocytes # (Auto) 1.9 Monocytes # (Auto) 0.5 Eosinophils # (Auto) 0.0 Basophils # (Auto) 0.0 CBC Comment AUTO DIFF Differential Comment AUTO DIFF CONFIRMED Platelet Estimate NORMAL Platelet Morphology Comment ENLARGED Ovalocytes 1+ Blood Urea Nitrogen 6 Creatinine 0.71 Random Glucose 122 Calcium Level 8.8 Sodium Level 136 Potassium Level 3.0 Chloride Level 98 Carbon Dioxide Level 28.4 Anion Gap 10 Estimat Glomerular Filtration Rate 89 Date/Time Source Procedure Growth Status 08/29/17 19:30 Urine Random Urine Urine Culture - Final Escherichia Coli Citrobacter Koseri Complete Radiology Last 48 hours Impressions Abdomen/Pelvis CT 08/29/172008 Signed Impressions: Service Date/Time: Tuesday, August 29, 2017 20:19 - CONCLUSION: 1. Mild constipation. Hepatomegaly to 23.4 cm with fatty infiltration. 2. Fat- containing umbilical hernia measuring about 3 cm. 3. Small hiatal hernia. Rafa Zapata MD Head CT 08/29/171947 Signed Impressions: Service Date/Time: Tuesday, August 29, 2017 20:16 - CONCLUSION: 1. No acute intracranial abnormalities. Rafa Zapata MD Chest X-Ray 08/29/171913 Signed Impressions: Service Date/Time: Tuesday, August 29, 2017 19:48 - CONCLUSION: No acute disease. Rafa Zapata MD Cardiovascular: Regular Lungs: Clear Abdomen: Other (epigastric tenderness with palpation no pain at the umbilicus) Extremities: No edema A/P Problem List: (1) Abdominal pain ICD Codes: R10.9 - Unspecified abdominal pain Status: Acute (2) Urinary tract infection ICD Codes: N39.0 - Urinary tract infection, site not specified Status: Acute (3) Gastroparesis ICD Codes: K31.84 - Gastroparesis Status: Acute (4) HTN (hypertension) ICD Codes: I10 - Essential (primary) hypertension Status: Chronic (5) Diabetes ICD Codes: E11.9 - Type 2 diabetes mellitus without complications Status: Chronic (6) Hypokalemia ICD Codes: E87.6 - Hypokalemia Status: Acute (7) UTI (urinary tract infection) ICD Codes: N39.0 - Urinary tract infection, site not specified Status: Acute (8) Gastroenteritis ICD Codes: K52.9 - Noninfective gastroenteritis and colitis, unspecified Status: Acute (9) Umbilical hernia ICD Codes: K42.9 - Umbilical hernia without obstruction or gangrene Assessment and Plan 47 year old female with abdominal pain; small reducible umbilical hernia which is not symptomatic -Diet as tolerated -Could benefit from colonoscopy at some point -No surgical plans at this time; will be available as needed over the weekend; call with questions please Attending Statement NOTE FOR SURGICAL ATTENDING, DR. RAFA KING Patient seen Still has fairly asymptomatic umbilical hernia Believe a lot of her symptomatology secondary to her gastroparesis hypokalemia gastritis esophagitis duodenitis she may need a colonoscopy sometime in the future to workup her anemia. I agree with above assessment and plan. The exam, history, and the medical decision-making described in the above note were completed with the assistance of the mid-level provider. I reviewed and agree with the findings presented. I attest that I had a [id number] encounter with the patient on the same day, and personally performed and documented my assessment and findings in the medical record. The following services were provided during this hospital visit: Chart data review, vital sign assessments/reviewing monitor data Review of consultations notes if present. Medication orders/review and/or management Ordering and/or reviewing lab tests Ordering and/or interpreting/reviewing x-rays and/or diagnostic studies Care of the patient and discussion of the patient with the care team Documentation time To help prompt me to consider important information that might be impacting today's encounter and assessment, information from prior notes written by myself or my colleagues may have been "brought forward/copy and pasted" into today's note. Problem Qualifiers (1) Abdominal pain: Qualified Codes: R10.13 - Epigastric pain (2) Urinary tract infection: Qualified Codes: N39.0 - Urinary tract infection, site not specified; R31.9 - Hematuria, unspecified Goldie Adan/First Raysa LITTLE Sep 01, 2017 15:51 Rafa King MD Sep 01, 2017 17:21
[2017-09-01] MEDS: D5-1/2 NS + KCL 10 MEQ INJ 1,000 ML IV SCH (16:46)
[2017-09-01] MEDS: PREGABALIN 25 MG CAP PO SCH (22:22)
[2017-09-02 03:12] VITALS: BP 163/96; PULSE 87; RESP 20; TEMP 98.6; O2SAT 99
[2017-09-02] MEDS: LEVOTHYROXINE SODIUM 50 MCG TAB PO SCH (05:32)
[2017-09-02] MEDS: ONDANSETRON HCL 4 MG/2 ML VIAL IVP PRN (05:33)
[2017-09-02] MEDS: MORPHINE SULFATE 8 MG/ML INJ IV PUSH PRN (05:33)
[2017-09-02 07:11] VITALS: BP 164/87; PULSE 84; RESP 18; TEMP 98.2; O2SAT 96
[2017-09-02] MEDS: INSULIN ASPART SUPPLEMENTAL SCALE SQ SCH ×4 (08:00→22:13)
[2017-09-02] MEDS: SUCRALFATE 1 GM/10 ML CUP PO SCH ×4 (08:39→22:12)
[2017-09-02] MEDS: DULoxetine HCl DR 20 MG CAP PO SCH (08:43)
[2017-09-02] MEDS: PANTOPRAZOLE SOD 40 MG DELAYED RELEASE TAB PO SCH ×2 (08:44→22:13)
[2017-09-02] MEDS: DOCUSATE SODIUM 50 MG/SENNA 8.6 MG TAB PO SCH ×2 (08:44→22:13)
[2017-09-02] MEDS: cloNIDine HCL 0.1 MG TAB PO SCH (08:44)
[2017-09-02] MEDS: LISINOPRIL 20 MG TAB PO SCH (08:45)
[2017-09-02] MEDS: SODIUM CHLORIDE 0.9% FLUSH 10 ML FLUSH IV FLUSH SCH ×2 (08:46→22:13)
[2017-09-02] MEDS: CIPROFLOXACIN 400 MG PREMIX 200 ML IV SCH ×2 (08:46→22:11)
[2017-09-02] MEDS: FLUTICASONE PROPIONATE 220 MCG/ACT 12 GM INHALER INH SCH ×2 (08:47→22:12)
[2017-09-02] MEDS: METOCLOPRAMIDE HCL 10 MG TAB PO SCH ×4 (08:50→22:13)
[2017-09-02] MEDS: DICYCLOMINE HCL 20 MG TAB PO SCH ×3 (08:50→18:53)
[2017-09-02] MEDS: POTASSIUM CHLORIDE 25 MEQ EFFERVESCENT TAB PO SCH ×3 (09:00→22:12)
--- NOTE | 2017-09-02 09:01 | HHI.PR ---
Subjective Remarks Follow up for abdominal pain, nausea/vomiting. The patient is seen sitting on the commode with RN at bedside. She reports continued constant cramping epigastric abdominal pain. She reports continued constant nausea with 2 episode of vomiting already this morning. One episode of vomiting witnessed by me, patient dry heaved a couple times then vomited ~50cc yellow bilious emesis. Denies fevers/chills. Discussed her abnormal urinalysis. The patient denies dysuria or suprapubic pain but does report increased urinary frequency and urgency. Still has not had a BM although hasn't been able to tolerate oral intake since Monday. She plans to try eating regular food for breakfast this morning. Objective Vitals Vital Signs Date Time Temp Pulse Resp B/P (MAP) Pulse Ox O2 Delivery O2 Flow Rate FiO2 09/02/17 07:11 98.2 84 18 164/87 (112) 96 09/02/17 03:12 98.6 87 20 163/96 (118) 99 09/01/17 23:12 98.7 82 16 134/76 (95) 97 09/01/17 20:19 99.2 91 16 142/78 (99) 95 09/01/17 15:28 98.0 88 18 139/79 (99) 98 09/01/17 11:51 97.5 85 18 164/93 (116) 97 I/O 09/01/17 09/01/17 09/01/17 09/02/17 09/02/17 09/02/17 07:00 15:00 23:00 07:00 15:00 23:00 Intake Total 480 ml Balance 480 ml Intake Oral 480 ml # Voids 3 5 Result Diagram: 09/01/17 0725 09/01/17 0725 Imaging Last Impressions Cholangiopancreatography MRI 08/31/17 0000 Signed Impressions: Service Date/Time: August 21:29 - CONCLUSION: 1. Postop cholecystectomy with mild biliary ductal dilatation to 11 mm. No evidence for choledocholithiasis. 2. Fatty liver enlarged to 24 cm. Je Zapata MD Abdomen/Pelvis CT 08/29/172008 Signed Impressions: Service Date/Time: Tuesday, August 29, 2017 20:19 - CONCLUSION: 1. Mild constipation. Hepatomegaly to 23.4 cm with fatty infiltration. 2. Fat- containing umbilical hernia measuring about 3 cm. 3. Small hiatal hernia. Je Zapata MD Head CT 08/29/171947 Signed Impressions: Service Date/Time: Tuesday, August 29, 2017 20:16 - CONCLUSION: 1. No acute intracranial abnormalities. Je Zapata MD Chest X-Ray 08/29/171913 Signed Impressions: Service Date/Time: Tuesday, August 29, 2017 19:48 - CONCLUSION: No acute disease. Je Zapata MD Objective Remarks GENERAL: Well-nourished, well-developed middle aged female patient in [facility]. SKIN: Warm and dry. No rash. HEENT: Normocephalic. Atraumatic. Pupils equal and round. Mucous membranes pink and moist. CARDIOVASCULAR: Regular rate and rhythm. No murmur appreciated. RESPIRATORY: No accessory muscle use. Clear to auscultation. Breath sounds equal bilaterally. GASTROINTESTINAL: Abdomen soft, nondistended, epigastric TTP. Normoactive bowel sounds x4. MUSCULOSKELETAL: No obvious deformities. Extremities without clubbing, cyanosis , or edema. NEUROLOGICAL: Awake and alert. No obvious cranial nerve deficits. Motor grossly within normal limits. Normal speech. PSYCHIATRIC: Appropriate mood and affect; insight and judgment normal. Medications and IVs Current Medications Medications (Trade) Dose Ordered Sig/Viviane Route Start Time Stop Time Status Last Admin (Albuterol Neb) 2.5 mg Q4HR NEB PRN NEB 08/29/17 22:00 (Catapres) 0.1 mg DAILY PO 08/30/17 09:00 09/02/17 08:44 (Cymbalta Dr) 20 mg DAILY PO 08/30/17 09:00 09/02/17 08:43 (Flovent Hfa 220 Mcg Inh) 1 puff BID INH 08/30/17 09:00 09/02/17 08:47 (Lyrica) 100 mg HS PO 08/29/17 22:00 09/01/17 22:22 (Prinivil) 40 mg DAILY PO 08/30/17 09:00 09/02/17 08:45 (NS Flush) 2 ml UNSCH PRN IV FLUSH 08/29/17 22:00 (NS Flush) 2 ml BID IV FLUSH 08/30/17 09:00 09/01/17 09:32 (Tylenol) 650 mg Q4H PRN PO 08/29/17 22:00 (Zofran Inj) 4 mg Q6H PRN IVP 08/29/17 22:00 09/02/17 05:33 (Reglan Inj) 5 mg Q6H PRN IV PUSH 08/29/17 22:00 08/31/17 18:23 (Compazine Supp) 25 mg Q12H PRN RECTAL 08/29/17 22:00 (Ambien) 5 mg HS PRN PO 08/29/17 22:00 08/31/17 22:17 (Narcan Inj) 0.4 mg UNSCH PRN IV PUSH 08/29/17 22:00 (Josefina-Colace) 1 tab BID PO 08/30/17 09:00 09/02/17 08:44 (Milk Of Magnesia Liq) 30 ml Q12H PRN PO 08/29/17 22:00 (Senokot) 17.2 mg Q12H PRN PO 08/29/17 22:00 (Dulcolax Supp) 10 mg DAILY PRN RECTAL 08/29/17 22:00 (Lactulose Liq) 30 ml DAILY PRN PO 08/29/17 22:00 (Ativan Inj) 0.5 mg Q6H PRN IV PUSH 08/29/17 22:00 08/29/17 22:25 (Ativan) 0.5 mg Q8H PRN PO 08/29/17 22:00 (Apresoline Inj) 20 mg Q4H PRN IV PUSH 08/29/17 22:00 08/30/17 05:40 (Catapres) 0.1 mg Q6H PRN PO 08/29/17 22:00 (Haldol Inj) 5 mg Q4H PRN IM 08/29/17 22:00 08/30/17 09:36 (Morphine Inj) 5 mg Q4H PRN IV PUSH 08/29/17 22:00 09/02/17 05:33 (D50w (Vial) Inj) 50 ml UNSCH PRN IV PUSH 08/29/17 22:00 (Glucagon Inj) 1 mg UNSCH PRN OTHER 08/29/17 22:00 (NovoLOG SUPPLEMENTAL SCALE) 1 ACHS SLIDING SCALE SQ 08/30/17 08:00 Potassium Chloride/Dextrose/ Sod Cl 1,000 ml @ 20 mls/hr Q24H IV 08/29/17 22:00 09/01/17 16:46 (Protonix) 40 mg BID PO 08/31/17 21:00 09/02/17 08:44 (Synthroid) 50 mcg DAILY@0600 PO 09/01/17 06:00 09/02/17 05:32 (Carafate Liq) 1 gm ACHS PO 09/01/17 12:00 09/02/17 08:39 (Reglan) 10 mg ACHS PO 09/01/17 12:00 09/02/17 08:50 (K-Lyte Cl Eff) 25 meq BID PO 09/01/17 21:00 Ciprofloxacin/ Dextrose 200 ml @ 200 mls/hr Q12H IV 09/02/17 09:00 09/02/17 08:46 (Bentyl) 20 mg TID PO 09/02/17 09:00 09/02/17 08:50 A/P Assessment and Plan 47-year-old female with history of lupus, gastritis, gastroparesis, diabetes, asthma, anxiety, anemia of chronic, TIA, presents with abdominal pain, nausea/ vomiting, and hematemesis Gastritis/Gastroparesis/GI Bleed: with epigastric pain/nausea/vomiting, and episode of hematemesis prior to arrival. -08/29 CT abd/pelvis showed mild constipation; hepatomegaly with fatty infiltration, fat-containing umbilical hernia ~3cm; small hiatal hernia -08/30 EGD showed gastritis, distal esophagitis; hiatal hernia; biopsies taken -08/31 MRCP showed postop cholecystectomy with mild biliary ductal dilatation to 11mm; no choledocholithiasis; fatty liver -GI consulted and following, appreciate recommendations -GS consulted for hernia; no acute surgical intervention recommended -Continue on reglan 10mg achs, Protonix 40mg bid, Carafate 1gm po achs, Added bentyl 20mg tid today -Supportive treatment with IVF, antiemetics, and pain control prn -Diet as tolerated, patient still vomiting today UTI: UA with +nitrites/leuks/bacteria. Likely contributing to symptoms above. Patient with +urinary urgency/frequency. -urine culture with E.coli and Citrobacter Koseri -will start on IV Cipro 400mg bid, plan to transition to oral when tolerating po intake Umbilical Hernia: patient with associated pain, requested surgical evaluation -General Surgery consulted, hernia nonsurgical -outpatient f/up Lupus/Chronic Pain: chronic -continue home medications Hypertension: BP uncontrolled at times. Likely exacerbated by pain/vomiting. -continue patient's lisinopril and clonidine -clonidine prn, IV hydralazine prn -monitor BP, adjust antihypertensives as needed Asthma: chronic, does not appear to be in exacerbation -continue albuterol nebs prn Anxiety/Panic Disorder: patient noted to be anxious throughout admission -continue ativan prn, Haldol prn severe anxiety/agitation Hypokalemia: K 3.0. Likely secondary to vomiting. -given IV and po KCl replacement -monitor BMP Hypothyroidism: new diagnosis -continue on levothyroxine 50mcg daily -outpatient f/up Diabetes Mellitus: chronic -monitor accu-checks and cover with medium-dosed SSI DVT Prophylaxis: teds/SCDs; chemoprophylaxis on hold secondary to hematemesis Discharge Planning Plan to discharge when tolerating oral intake and cleared by GI. Hopefully today or tomorrow. Day Grullon PA-C Sep 02, 2017 9:01 am
[2017-09-02 11:17] LABS: AUTOMATED NEUTROPHIL # 4.9 TH/MM3 (1.8-7.7); BASOPHIL % 0.6 % (0.0-2.0); EOSINOPHIL # 0.1 TH/MM3 (0-0.4); HEMATOCRIT 32.1 % (35.0-46.0); LYMPH % 17.9 % (9.0-44.0); LYMPHOCYTE # 1.2 TH/MM3 (1.0-4.8); MEAN CELL VOLUME 65.5 FL (80.0-100.0); MEAN CORPUSCULAR HEMOGLOBIN 20.4 PG (27.0-34.0); MEAN CORPUSCULAR HGB CONC 31.2 % (32.0-36.0); MEAN PLATELET VOLUME 10.8 FL (7.0-11.0); MONO % 7.3 % (0.0-8.0); MONOCYTE # 0.5 TH/MM3 (0-0.9); NEUT % 73.2 % (16.0-70.0); PLATELET COUNT 176 TH/MM3 (150-450); RED BLOOD COUNT 4.91 MIL/MM3 (4.00-5.30); RED CELL DISTRIBUTION WIDTH 23.8 % (11.6-17.2); WHITE BLOOD COUNT 6.8 TH/MM3 (4.0-11.0)
[2017-09-02 11:32] LABS: BICARBONATE 29.4 MEQ/L (21.0-32.0); CALCIUM 8.7 MG/DL (8.5-10.1); CREATININE 0.75 MG/DL (0.50-1.00)
[2017-09-02 11:33] VITALS: BP 129/79; PULSE 81; RESP 18; TEMP 97.8; O2SAT 96
[2017-09-02 12:30] LABS: OVALOCYTES 1+ (NORMAL)
[2017-09-02 16:04] VITALS: BP 117/70; PULSE 84; RESP 18; TEMP 98.3; O2SAT 98
[2017-09-02] MEDS ORDERED: POTASSIUM CHLORIDE 10 MEQ CONTROLLED RELEASE TAB PO ONE (16:45)
--- NOTE | 2017-09-02 17:56 | HHI.GIFU ---
Subjective Remarks Pt states she feels much better today Has been able to tolerate PO Reports two BMs today Some mild abdominal pain, but states much improved (Alexa Monroe) Objective Vitals I&O Vital Signs Date Time Temp Pulse Resp B/P (MAP) Pulse Ox O2 Delivery O2 Flow Rate FiO2 09/02/17 16:04 98.3 84 18 117/70 (86) 98 09/02/17 11:33 97.8 81 18 129/79 (96) 96 09/02/17 07:11 98.2 84 18 164/87 (112) 96 09/02/17 03:12 98.6 87 20 163/96 (118) 99 09/01/17 23:12 98.7 82 16 134/76 (95) 97 09/01/17 20:19 99.2 91 16 142/78 (99) 95 I/O 09/01/17 09/01/17 09/01/17 09/02/17 09/02/17 09/02/17 07:00 15:00 23:00 07:00 15:00 23:00 Intake Total 480 ml Balance 480 ml Intake Oral 480 ml # Voids 3 5 Laboratory Laboratory Tests Test 09/02/17 09:45 White Blood Count 6.8 Red Blood Count 4.91 Hemoglobin 10.0 Hematocrit 32.1 Mean Corpuscular Volume 65.5 Mean Corpuscular Hemoglobin 20.4 Mean Corpuscular Hemoglobin Concent 31.2 Red Cell Distribution Width 23.8 Platelet Count 176 Mean Platelet Volume 10.8 Neutrophils (%) (Auto) 73.2 Lymphocytes (%) (Auto) 17.9 Monocytes (%) (Auto) 7.3 Eosinophils (%) (Auto) 1.0 Basophils (%) (Auto) 0.6 Neutrophils # (Auto) 4.9 Lymphocytes # (Auto) 1.2 Monocytes # (Auto) 0.5 Eosinophils # (Auto) 0.1 Basophils # (Auto) 0.0 CBC Comment AUTO DIFF Differential Comment AUTO DIFF CONFIRMED Platelet Estimate NORMAL Platelet Morphology Comment ENLARGED Ovalocytes 1+ Blood Urea Nitrogen 7 Creatinine 0.75 Random Glucose 172 Calcium Level 8.7 Sodium Level 137 Potassium Level 2.9 Chloride Level 98 Carbon Dioxide Level 29.4 Anion Gap 10 Estimat Glomerular Filtration Rate 83 Date/Time Source Procedure Growth Status 08/29/17 19:30 Urine Random Urine Urine Culture - Final Escherichia Coli Citrobacter Koseri Complete Imaging Last Impressions Cholangiopancreatography MRI 08/31/17 0000 Signed Impressions: Service Date/Time: August 21:29 - CONCLUSION: 1. Postop cholecystectomy with mild biliary ductal dilatation to 11 mm. No evidence for choledocholithiasis. 2. Fatty liver enlarged to 24 cm. Je Zapata MD Abdomen/Pelvis CT 08/29/172008 Signed Impressions: Service Date/Time: Tuesday, August 29, 2017 20:19 - CONCLUSION: 1. Mild constipation. Hepatomegaly to 23.4 cm with fatty infiltration. 2. Fat- containing umbilical hernia measuring about 3 cm. 3. Small hiatal hernia. Je Zapata MD Head CT 08/29/171947 Signed Impressions: Service Date/Time: Tuesday, August 29, 2017 20:16 - CONCLUSION: 1. No acute intracranial abnormalities. Je Zapata MD Chest X-Ray 08/29/171913 Signed Impressions: Service Date/Time: Tuesday, August 29, 2017 19:48 - CONCLUSION: No acute disease. Je Zapata MD Physical Exam HEENT: Normocephalic; atraumatic CHEST: Even/unlabored CARDIAC: RRR ABDOMEN: Distended, soft, mild upper abdominal tenderness, bowel sounds active SKIN: Normal; no rash; no jaundice. [employer]: No focal deficits; alert and oriented times three. (Alexa Monroe DIRECTOR [employer]) Assessment and Plan Plan ASSESSMENT - upper quadrant pain, n/v - unclear etiology could be gastroparesis vs gastritis. hx gastroparesis with borderline abnormal test 10/2016 last EGD 10/[address] Martinez showed duodenitis, esophagitis, hiatal hernia , path benign. SHe does not take anything for gastroparesis. SHe has taken reglan in past and says it helped. - hematemesis - scant blood in emesis yesterday after mult episodes vomiting. could be small tear - anemis - microcytic likely multifactorial GES (October 2016) --> Delayed lag phase otherwise normal gastric emptying. CT abdomen and pelvis (08/29) --> Mild constipation. Hepatomegaly to 23.4 cm with fatty infiltration. Fat-containing umbilical hernia measuring about 3cm. Small hiatal hernia. (08/31) --> Pt complaining of continued upper abdominal pain today, states worse with movement. Denies relation to food. Tolerating liquid diet. Intermittent nausea, denies emesis. Reports 2 BMs this morning, states first was black and hard and the second was diarrhea, denies BRB. S/P EGD yesterday --> Gastritis. Esophagitis distal esophagus. Hiatal hernia. Biopsy pending. Drop in H/H noted today 8.9/28 from 9.7/30.2 yesterday. Increased LFTs, fatty liver noted on CT, no recheck since Monday. Hypothyroid- TSH 13.5- correction per attending MIGUEL- GFR improving (09/01) --> Pt comfortable and sleeping when I entered room. After waking her up she is complaining of continued upper abdominal pain. States pain is not improving. Continued nausea, seems to be just dry heaving because points to emesis bag and there is nothing in it. Pt with severe anxiety, nausea seems somewhat related to this. Pt is afraid to eat, has tolerated some liquids. MRCP noted --> Post op cholecystectomy with mild biliary ductal dilation to 11 mm. No evidence for choledocholithiasis. Fatty liver enlarged to 24 cm. H/H improved today. Currently 9.5/29.9. GS consult per pts request- they note umbilical hernia with non obstructive symptoms. No surgical interventions planned. (09/02) Pt reports feeling much better today. Has been able to tolerate PO. Reports 2 BMs today. Some mild abdominal pain but states nothing like it was yesterday. H/H stable. Hypokalemia noted- replacement per attending PLAN - KING - Bentyl - Reglan - If tolerating PO and continued improvement, can most likely go home tomorrow - Will continue to follow Pt has been seen and examined by myself and Dr. Payne and this note is written on her behalf (Alexa Monroe) Alexa Monroe Sep 02, 2017 17:56 Jia Payne MD Sep 02, 2017 20:58
[2017-09-02] MEDS: POTASSIUM CHLOR 20 MEQ PREMIX 100 ML IV SCH ×2 (18:57→22:15)
[2017-09-02 20:16] VITALS: BP 124/72; PULSE 86; RESP 20; TEMP 98.6; O2SAT 96
[2017-09-02] MEDS: PREGABALIN 25 MG CAP PO SCH (22:12)
[2017-09-02] MEDS: D5-1/2 NS + KCL 10 MEQ INJ 1,000 ML IV SCH (22:14)
[2017-09-02] MEDS: ZOLPIDEM TARTRATE 5 MG TAB PO PRN (22:17)
[2017-09-02 23:14] VITALS: BP 124/71; PULSE 85; RESP 16; TEMP 98.7; O2SAT 96
[2017-09-03] VITALS: BP 134/79; PULSE 86; RESP 18; TEMP 98.2; O2SAT 95
[2017-09-03] MEDS: ONDANSETRON HCL 4 MG/2 ML VIAL IVP PRN (00:22)
[2017-09-03] MEDS: MORPHINE SULFATE 8 MG/ML INJ IV PUSH PRN (00:23)
[2017-09-03] MEDS: LEVOTHYROXINE SODIUM 50 MCG TAB PO SCH (04:22)
[2017-09-03] MEDS ORDERED: NS + KCL 20 MEQ INJ 1,000 ML IV SCH (07:45)
[2017-09-03 08:00] VITALS: BP 140/63; PULSE 80; RESP 18; TEMP 98.2; O2SAT 96
[2017-09-03] MEDS: SUCRALFATE 1 GM/10 ML CUP PO SCH ×2 (08:00→12:41)
[2017-09-03] MEDS: METOCLOPRAMIDE HCL 10 MG TAB PO SCH ×2 (08:00→12:42)
[2017-09-03] MEDS: INSULIN ASPART SUPPLEMENTAL SCALE SQ SCH ×2 (08:00→12:00)
[2017-09-03] MEDS: FLUTICASONE PROPIONATE 220 MCG/ACT 12 GM INHALER INH SCH (08:12)
[2017-09-03] MEDS: SODIUM CHLORIDE 0.9% FLUSH 10 ML FLUSH IV FLUSH SCH (08:12)
[2017-09-03] MEDS: DICYCLOMINE HCL 20 MG TAB PO SCH ×2 (08:12→12:41)
[2017-09-03] MEDS: CIPROFLOXACIN 400 MG PREMIX 200 ML IV SCH (08:12)
[2017-09-03] MEDS: cloNIDine HCL 0.1 MG TAB PO SCH (08:13)
[2017-09-03] MEDS: DULoxetine HCl DR 20 MG CAP PO SCH (08:13)
[2017-09-03] MEDS: LISINOPRIL 20 MG TAB PO SCH (08:18)
[2017-09-03] MEDS: DOCUSATE SODIUM 50 MG/SENNA 8.6 MG TAB PO SCH (08:18)
[2017-09-03] MEDS: PANTOPRAZOLE SOD 40 MG DELAYED RELEASE TAB PO SCH (08:18)
--- NOTE | 2017-09-03 09:00 | HHI.GIFU ---
Subjective Remarks Pt resting in bed Eating breakfast Reports BM this morning Denies nausea, vomiting Epigastric pain is mild Objective Vitals I&O Vital Signs Date Time Temp Pulse Resp B/P (MAP) Pulse Ox O2 Delivery O2 Flow Rate FiO2 09/03/17 08:00 98.2 80 18 140/63 (88) 96 09/03/17 00:00 98.2 86 18 134/79 (97) 95 09/02/17 23:14 98.7 85 16 124/71 (88) 96 09/02/17 23:12 18 09/02/17 20:16 98.6 86 20 124/72 (89) 96 09/02/17 16:04 98.3 84 18 117/70 (86) 98 09/02/17 11:33 97.8 81 18 129/79 (96) 96 I/O 09/02/17 09/02/17 09/02/17 09/03/17 09/03/17 09/03/17 07:00 15:00 23:00 07:00 15:00 23:00 Intake Total 700 ml 240 ml Output Total 801 ml Balance -101 ml 240 ml Intake Oral 700 ml 240 ml Output Urine Total 800 ml Stool Total 1 ml # Voids 3 Laboratory Laboratory Tests Test 09/02/17 09:45 White Blood Count 6.8 Red Blood Count 4.91 Hemoglobin 10.0 Hematocrit 32.1 Mean Corpuscular Volume 65.5 Mean Corpuscular Hemoglobin 20.4 Mean Corpuscular Hemoglobin Concent 31.2 Red Cell Distribution Width 23.8 Platelet Count 176 Mean Platelet Volume 10.8 Neutrophils (%) (Auto) 73.2 Lymphocytes (%) (Auto) 17.9 Monocytes (%) (Auto) 7.3 Eosinophils (%) (Auto) 1.0 Basophils (%) (Auto) 0.6 Neutrophils # (Auto) 4.9 Lymphocytes # (Auto) 1.2 Monocytes # (Auto) 0.5 Eosinophils # (Auto) 0.1 Basophils # (Auto) 0.0 CBC Comment AUTO DIFF Differential Comment AUTO DIFF CONFIRMED Platelet Estimate NORMAL Platelet Morphology Comment ENLARGED Ovalocytes 1+ Blood Urea Nitrogen 7 Creatinine 0.75 Random Glucose 172 Calcium Level 8.7 Sodium Level 137 Potassium Level 2.9 Chloride Level 98 Carbon Dioxide Level 29.4 Anion Gap 10 Estimat Glomerular Filtration Rate 83 Magnesium Level 1.9 Date/Time Source Procedure Growth Status 08/29/17 19:30 Urine Random Urine Urine Culture - Final Escherichia Coli Citrobacter Koseri Complete Imaging Last Impressions Cholangiopancreatography MRI 08/31/17 0000 Signed Impressions: Service Date/Time: August 21:29 - CONCLUSION: 1. Postop cholecystectomy with mild biliary ductal dilatation to 11 mm. No evidence for choledocholithiasis. 2. Fatty liver enlarged to 24 cm. Je Zapata MD Abdomen/Pelvis CT 08/29/172008 Signed Impressions: Service Date/Time: Tuesday, August 29, 2017 20:19 - CONCLUSION: 1. Mild constipation. Hepatomegaly to 23.4 cm with fatty infiltration. 2. Fat- containing umbilical hernia measuring about 3 cm. 3. Small hiatal hernia. Je Zapata MD Head CT 08/29/171947 Signed Impressions: Service Date/Time: Tuesday, August 29, 2017 20:16 - CONCLUSION: 1. No acute intracranial abnormalities. Je Zapata MD Chest X-Ray 08/29/171913 Signed Impressions: Service Date/Time: Tuesday, August 29, 2017 19:48 - CONCLUSION: No acute disease. Je Zapata MD Physical Exam HEENT: Normocephalic; atraumatic CHEST: Even/unlabored CARDIAC: RRR ABDOMEN: Distended, soft, mild upper abdominal tenderness, bowel sounds active SKIN: Normal; no rash; no jaundice. [employer]: No focal deficits; alert and oriented times three. Assessment and Plan Plan ASSESSMENT - upper quadrant pain, n/v - unclear etiology could be gastroparesis vs gastritis. hx gastroparesis with borderline abnormal test 10/2016 last EGD 10/[address] Martinez showed duodenitis, esophagitis, hiatal hernia , path benign. SHe does not take anything for gastroparesis. SHe has taken reglan in past and says it helped. - hematemesis - scant blood in emesis yesterday after mult episodes vomiting. could be small tear - anemis - microcytic likely multifactorial GES (October 2016) --> Delayed lag phase otherwise normal gastric emptying. CT abdomen and pelvis (08/29) --> Mild constipation. Hepatomegaly to 23.4 cm with fatty infiltration. Fat-containing umbilical hernia measuring about 3cm. Small hiatal hernia. (08/31) --> Pt complaining of continued upper abdominal pain today, states worse with movement. Denies relation to food. Tolerating liquid diet. Intermittent nausea, denies emesis. Reports 2 BMs this morning, states first was black and hard and the second was diarrhea, denies BRB. S/P EGD yesterday --> Gastritis. Esophagitis distal esophagus. Hiatal hernia. Biopsy pending. Drop in H/H noted today 8.9/28 from 9.7/30.2 yesterday. Increased LFTs, fatty liver noted on CT, no recheck since Monday. Hypothyroid- TSH 13.5- correction per attending MIGUEL- GFR improving (09/01) --> Pt comfortable and sleeping when I entered room. After waking her up she is complaining of continued upper abdominal pain. States pain is not improving. Continued nausea, seems to be just dry heaving because points to emesis bag and there is nothing in it. Pt with severe anxiety, nausea seems somewhat related to this. Pt is afraid to eat, has tolerated some liquids. MRCP noted --> Post op cholecystectomy with mild biliary ductal dilation to 11 mm. No evidence for choledocholithiasis. Fatty liver enlarged to 24 cm. H/H improved today. Currently 9.5/29.9. GS consult per pts request- they note umbilical hernia with non obstructive symptoms. No surgical interventions planned. (09/02) Pt reports feeling much better today. Has been able to tolerate PO. Reports 2 BMs today. Some mild abdominal pain but states nothing like it was yesterday. H/H stable. Hypokalemia noted- replacement per attending (09/03) Pt reports continued improvement, eating breakfast during me exam. Reports BM this morning. Denies nausea, vomiting. States some mild epigastric pain but nothing like it was before. BMP from today is pending. IV fluids with potassium for replacement. PLAN - KING - Bentyl - Reglan - Carafate - Protonix - OK to DC from a GI standpoint - Have pt follow up with GI in the office Pt has been seen and examined by myself and Dr. Payne and this note is written on her behalf Alexa Monroe Sep 03, 2017 09:00
[2017-09-03] MEDS ORDERED: LEVO.05 PO (09:29)
[2017-09-03] MEDS ORDERED: SUCR1S PO (09:29)
[2017-09-03] MEDS ORDERED: PANT40TA3 PO (09:29)
[2017-09-03] MEDS ORDERED: DICY20TA10 PO (09:29)
[2017-09-03] MEDS ORDERED: KLYTECL PO (09:29)
--- NOTE | 2017-09-03 09:33 | HHI.DCPOC ---
Discharge Care Plan Diagnosis: (1) Hypothyroidism (2) Gastritis and duodenitis (3) HTN (hypertension) (4) Gastroparesis (5) Hypokalemia Goals to Promote Your Health * To prevent worsening of your condition and complications * To maintain your health at the optimal level Directions to Meet Your Goals Take your medications as prescribed Follow your dietary instruction Follow activity as directed Keep your appointments as scheduled Take your immunizations and boosters as scheduled If your symptoms worsen call your PCP, if no PCP go to Urgent Care Center or Emergency Room Smoking is Dangerous to Your Health. Avoid second hand smoke Call the 24-hour hour crisis hotline for domestic abuse at Jatinder Auguste MD Sep 03, 2017 09:33
[2017-09-03 10:12] LABS: ALBUMIN 3.4 GM/DL (3.4-5.0); ALKALINE PHOSPHATASE 95 U/L (45-117); ALT (GPT) 90 U/L (10-53); AST (GOT) 79 U/L (15-37); BICARBONATE 28.5 MEQ/L (21.0-32.0); BLOOD UREA NITROGEN 9 MG/DL (7-18); CALCIUM 8.5 MG/DL (8.5-10.1); CHLORIDE 101 MEQ/L (98-107); CREATININE 0.85 MG/DL (0.50-1.00); GLOMERULAR FILTRATION RATE 72 ML/MIN (>89); GLUCOSE,RANDOM 144 MG/DL (74-106); SODIUM (NA) 137 MEQ/L (136-145); TOTAL BILIRUBIN ADULT 0.4 MG/DL (0.2-1.0); TOTAL PROTEIN 7.1 GM/DL (6.4-8.2)
--- NOTE | 2017-09-03 10:29 | HHI.DS ---
cc: Bubba Reddy MD Discharge Summary Admission Date Sep 01, 2017 at 09:30 Discharge Date: Sep 03, 2017 Admitting Diagnosis Hematemesis, Dehydration (1) Hypothyroidism ICD Code: E03.9 - Hypothyroidism, unspecified Status: Acute (2) Hypokalemia ICD Code: E87.6 - Hypokalemia Status: Acute (3) Gastroparesis ICD Code: K31.84 - Gastroparesis Status: Acute (4) HTN (hypertension) ICD Code: I10 - Essential (primary) hypertension Status: Chronic (5) Diabetes ICD Code: E11.9 - Type 2 diabetes mellitus without complications Status: Chronic (6) Vomiting ICD Code: R11.10 - Vomiting, unspecified Status: Acute (7) Gastritis and duodenitis ICD Code: K29.90 - Gastroduodenitis, unspecified, without bleeding Procedures 08/30/17 EGD Brief History - From Admission Prachi Chaudhry is a 47-year-old female who I see in the outpatient. She was in my office last week and had her typical complaints of ongoing dyspepsia, anxiety, chronic pain and wheezing. We placed her back on her proton pump inhibitor. She was doing relatively well as far as her baseline. Unfortunately, the patient presented to the Emergency Room with abdominal pain, nausea, vomiting, and hematemesis. She states that she has had that recurrently since being in the emergency room; however, no nurses have actually witnessed this. Nursing does report severe anxiety and chronic pain and some dry heaving. The patient is seen in the emergency room and is holding an expectorant bag. She is disheveled-appearing and looks ill. She states that this all started yesterday. CBC/BMP: 09/02/17 0945 09/03/17 0906 Significant Findings Laboratory Tests Test 09/01/17 07:25 09/02/17 09:45 09/03/17 09:06 Hemoglobin 9.5 GM/DL (11.6-15.3) 10.0 GM/DL (11.6-15.3) Hematocrit 29.9 % (35.0-46.0) 32.1 % (35.0-46.0) Mean Corpuscular Volume 63.4 FL (80.0-100.0) 65.5 FL (80.0-100.0) Mean Corpuscular Hemoglobin 20.1 PG (27.0-34.0) 20.4 PG (27.0-34.0) Mean Corpuscular Hemoglobin Concent 31.7 % (32.0-36.0) 31.2 % (32.0-36.0) Red Cell Distribution Width 23.5 % (11.6-17.2) 23.8 % (11.6-17.2) Platelet Morphology Comment ENLARGED (NORMAL) ENLARGED (NORMAL) Ovalocytes 1+ (NORMAL) 1+ (NORMAL) Blood Urea Nitrogen 6 MG/DL (7-18) Random Glucose 122 MG/DL (74-106) 172 MG/DL (74-106) 144 MG/DL (74-106) Potassium Level 3.0 MEQ/L (3.5-5.1) 2.9 MEQ/L (3.5-5.1) Neutrophils (%) (Auto) 73.2 % (16.0-70.0) Estimat Glomerular Filtration Rate 83 ML/MIN (>89) 72 ML/MIN (>89) Aspartate Amino Transf (AST/SGOT) 79 U/L (15-37) Alanine Aminotransferase (ALT/SGPT) 90 U/L (10-53) PE at Discharge GENERAL: Well-nourished, well-developed middle aged female patient in [facility]. SKIN: Warm and dry. No rash. HEENT: Normocephalic. Atraumatic. Pupils equal and round. Mucous membranes pink and moist. CARDIOVASCULAR: Regular rate and rhythm. No murmur appreciated. RESPIRATORY: No accessory muscle use. Clear to auscultation. Breath sounds equal bilaterally. GASTROINTESTINAL: Abdomen soft, nondistended, epigastric TTP. Normoactive bowel sounds x4. MUSCULOSKELETAL: No obvious deformities. Extremities without clubbing, cyanosis , or edema. NEUROLOGICAL: Awake and alert. No obvious cranial nerve deficits. Motor grossly within normal limits. Normal speech. PSYCHIATRIC: Appropriate mood and affect; insight and judgment normal. Pt update on day of discharge The patient is still having some abdominal pain, but states that she feels much better overall. She feels ready to go home. Hospital Course The patient was admitted for management of abdominal pain, GI bleed, hematemesis. Gastroenterology was consulted. EGD was done and showed gastritis and esophagitis. MRCP showed mild biliary ductal dilatation and fatty liver. General surgery was consulted for evaluation of hernia. No surgical intervention was recommended. The patient's nausea and vomiting improved. She developed hypokalemia. Potassium was supplemented and serum potassium level improved. She was cleared for discharge by gastroenterology and felt to be stable for discharge home. Pt Condition on Discharge: Stable Discharge Disposition: Discharge Home Discharge Time: > 30 minutes Discharge Instructions DIET: Follow Instructions for: Diabetic Diet Activities you can perform: Regular-No Restrictions Follow up Referrals: Gastroenterology with Jia Payne MD PCP Follow-up - 09/04/17 with Bubba Reddy MD New Medications: Dicyclomine (Dicyclomine) 20 Mg Tab 20 MG PO TID for GI, #90 TAB 0 Refills Levothyroxine (Synthroid) 50 Mcg Tab 50 MCG PO DAILY@0600 for Thyroid, #30 TAB 0 Refills Pantoprazole (Pantoprazole) 40 Mg Tab 40 MG PO BID for Reflux, #60 TAB 0 Refills Potassium Bicarb-Chloride Effervescent (Effervescent Potassium Chloride 25 Meq) 25 Meq Tab 25 MEQ PO BID for Nutritional Supplement, #60 TAB 0 Refills Sucralfate Liq (Sucralfate Liq) 1 Gram/10 Ml Naina 1 GM PO ACHS for GASTRITIS, #120 ML 0 Refills Continued Medications: Albuterol 18 GM Inh (Ventolin Hfa 18 GM Inh) 90 Mcg/Act Aer 2 PUFF INH Q4-6H PRN for SHORTNESS OF BREATH, #1 INHALER 0 Refills Albuterol Neb (Albuterol Neb) 2.5 Mg/3 Ml Neb 2.5 MG NEB Q4HR NEB PRN for SHORTNESS OF BREATH, #60 NEBULE 0 Refills Clonidine (Clonidine) 0.1 Mg Tab 0.1 MG PO DAILY for Blood Pressure Management, #60 TAB [address] (Duloxetine DR) 20 Mg Capdr 20 MG PO DAILY, CAP 0 Refills Fluticasone 12 GM Inh (Flovent Hfa 12 GM Inh) 220 Mcg/Act Inh 1 PUFF INH BID for Asthma Management, #1 INHALER 0 Refills Use daily at the same time. Insulin Human Regular Inj (Novolin R Inj) 1,000 Unit/10 Ml Vial 0 SQ DIRECTED for Blood Sugar Management, #10 ML 0 Refills Sliding Scale As Directed. Ipratropium HFA 12.9 GM Inh (Atrovent HFA 12.9 GM Inh) 17 Mcg/Actuation Aer 2 PUFF INH Q6HR PRN for SHORTNESS OF BREATH, #1 INHALER 0 Refills Lisinopril (Lisinopril) 40 Mg Tab 40 MG PO DAILY for Blood Pressure Management, #30 TAB 0 Refills Lorazepam (Lorazepam) 0.5 Mg Tab Unknown Dose PO DAILY PRN for ANXIETY, TAB 0 Refills Metformin (Metformin) 1,000 Mg Tab 1000 MG PO BIDPC PRN for BLOOD SUGAR BELOW 150, #60 TAB 0 Refills With meals Pregabalin (Lyrica) 50 Mg Cap 100 MG PO HS, #90 CAP 0 Refills Discontinued Medications: Meloxicam (Mobic) 15 Mg Tab 15 MG PO DAILY, TAB 0 Refills Jatinder Auguste MD Sep 03, 2017 10:29
== END 2017-09-03 14:02 | disposition home or self-care (01) | DRG 392 ==
LOC: NED 14:29 → INTOOBSV 21:45 → NEDA 21:45 → NEDH 08-30 01:34 → NEPHCDU 08-30 17:44 → OBSVTOIN 09-01 09:30 → N07A 09-02 23:42
PROVIDERS: ADMIT Family Medicine; ATTEND Family Medicine
PROC: 0DB78ZX Excision of Stomach, Pylorus, Via Natural or Artificial Opening Endoscopic, Diagnostic (ICD-10-PCS; 2017-08-30)
PROC: 0DB38ZX Excision of Lower Esophagus, Via Natural or Artificial Opening Endoscopic, Diagnostic (ICD-10-PCS; principal; 2017-08-30 15:35)
DX: K29.90 Gastroduodenitis, unspecified, without bleeding (principal); N17.9 Acute kidney failure, unspecified; E11.43 Type 2 diabetes mellitus with diabetic autonomic (poly)neuropathy; K31.84 Gastroparesis; J45.901 Unspecified asthma with (acute) exacerbation; M32.9 Systemic lupus erythematosus, unspecified; K76.0 Fatty (change of) liver, not elsewhere classified; N39.0 Urinary tract infection, site not specified; R16.0 Hepatomegaly, not elsewhere classified; I10 Essential (primary) hypertension; D63.8 Anemia in other chronic diseases classified elsewhere; E87.6 Hypokalemia; E03.9 Hypothyroidism, unspecified; K42.9 Umbilical hernia without obstruction or gangrene; K52.9 Noninfective gastroenteritis and colitis, unspecified; K21.0 Gastro-esophageal reflux disease with esophagitis; F41.9 Anxiety disorder, unspecified; E86.0 Dehydration; G89.4 Chronic pain syndrome; R00.0 Tachycardia, unspecified; R10.9 Unspecified abdominal pain; M79.7 Fibromyalgia; G43.909 Migraine, unspecified, not intractable, without status migrainosus; K59.00 Constipation, unspecified; Z88.1 Allergy status to other antibiotic agents; Z83.3 Family history of diabetes mellitus
CPT/HCPCS: 70450; 71045; 74176; 74181; 76377; 80048; 80053; 81001; 82550; 82552; 82948; 83690; 83735; 83880; 84443; 84484; 84703; 85025; 85610; 85730; 86140; 87077; 87086; 87186; 88305; 88312; 93005; 96361; 96365; 96375; C9113; J0330; J0360; J0744; J1100; J1630; J1815; J1956; J2060; J2270; J2405; J2765; J3010; J3480; J7030

== ENCOUNTER 2017-10-27 19:38 | Observation (INO) | payer OTHER ==
[~2017-10-27] VITALS: Ht 160 cm; Wt 91.0 kg
[~2017-10-27 19:38] MED LIST changes: -AMIT10TA6 PO; -CHLO25TA2 PO; +CLON0.1T PO; +DICY20TA10 PO; +IPRA17I INH; +KLYTECL PO; +LEVO.05 PO; -LISI-515 PO; +LISI40TA PO; +LORA0.5T PO; -MOBI15TA PO; +PANT40TA3 PO; +SUCR1S PO
[2017-10-27 19:45] VITALS: BP 126/70; PULSE 110; RESP 24; TEMP 98.6; O2SAT 98
[2017-10-27 22:34] VITALS: BP 138/86; PULSE 96; RESP 22; O2SAT 99
--- NOTE | 2017-10-27 22:58 | PD ---
HPI Chief Complaint: Respiratory Symptoms Time Seen by Provider: 22:35 Travel History International Travel<30 days: No Contact w/Intl Traveler<30days: No Traveled to known affect area: No History of Present Illness HPI 87-year-old female with history of lupus, anxiety, hypertension, asthma, presents emergency department for evaluation of chest tightness and shortness of breath worsening over the last 2 days. She went to her primary care provider 's office today who told her it was her asthma, gave her an injection of something, and sent her home. She states she has been doing her nebulized treatments without any improvement in her symptoms. She states that she feels like she is wheezing a lot and it is difficult to take a deep breath. She denies any fever. States she has felt chilled. She has had some mild cough. She has no other symptoms to report at this time. PFSH Past Medical History Hx Anticoagulant Therapy: Yes Asthma: Yes Autoimmune Disease: Yes (LUPUS) Blood Disorders: No Anxiety: Yes Depression: No Heart Rhythm Problems: No Cancer: No Cardiovascular Problems: Yes (HTN) High Cholesterol: No Chest Pain: No Congestive Heart Failure: No COPD: No Cerebrovascular Accident: Yes (TIA) Diabetes: Yes (metformin, Novolin R) Patient Takes Glucophage: Yes Diminished Hearing: No Endocrine: Yes (TYPE 2 DM) Fibromyalgia: Yes Gastrointestinal Disorders: Yes (GASTRITIS, GASTRPORESIS, GERD) GERD: Yes Genitourinary: No Hepatitis: No Hiatal Hernia: No Hypertension: Yes Immune Disorder: No Implanted Vascular Access Dvce: No Medical other: Yes (ANEMIA) Musculoskeletal: Yes (BIALTERAL CARPAL TUNNEL) Neurologic: Yes (FIBROMYALGIA, MINI STROKE, LIN/MIGRAINES) Psychiatric: Yes (ANXIETY) Reproductive: No Respiratory: Yes (Asthma) Immunizations Current: Yes Sleep Apnea: No Thyroid Disease: No Tetanus Vaccination: < 5 Years ?: Not LMP: 09/26/17 : 2 Para: 2 Miscarriage: 0 : 0 Past Surgical History Abdominal Surgery: Yes (CHOLECYSTECTOMY) AICD: No Cardiac Surgery: No Section: Yes (X2) Cholecystectomy: Yes Ear Surgery: No Endocrine Surgery: No Eye Surgery: No Genitourinary Surgery: No Gynecologic Surgery: Yes ( X 2) Joint Replacement: No Neurologic Surgery: No Oral Surgery: Yes (WISDOM TEETH) Pacemaker: No Thoracic Surgery: No Other Surgery: Yes (tendonitis - R. HAND) Social History Alcohol Use: No Tobacco Use: No Substance Use: No Allergies-Medications (Allergen,Severity, Reaction): Coded Allergies: broccoli (Verified Allergy, Severe, Diarrhea, 08/29/17) RASH cephalexin (Verified Allergy, Severe, Diarrhea, 08/29/17) ALSO RASH iodine (Verified Allergy, Severe, Anaphylaxis, 08/29/17) potassium iodide (Verified Allergy, Severe, Anaphylaxis, 08/29/17) povidone-iodine (Verified Allergy, Severe, Anaphylaxis, 08/29/17) shellfish derived (Verified Allergy, Severe, Anaphylaxis, 08/29/17) sodium iodide (Verified Allergy, Severe, Anaphylaxis, 08/29/17) sodium iodide (Verified Allergy, Severe, Anaphylaxis, 08/29/17) theophylline (Verified Allergy, Severe, Anaphylaxis, 08/29/17) aminophylline (Verified Allergy, Intermediate, MAKES HER HYPER ELEVATES BP , 08/29/17) naproxen (Verified Allergy, Intermediate, Rash, 08/29/17) penicillin G (Verified Allergy, Intermediate, RASH, 08/29/17) aminopyrine (Verified Allergy, Unknown, 08/29/17) DENIES ALLERGY azathioprine (Verified Allergy, Unknown, 08/29/17) diphenhydramine (Verified Adverse Reaction, Mild, palpitations, 08/29/17) pushed too quickly ibuprofen (Verified Adverse Reaction, Mild, 08/29/17) stomach pain Uncoded Allergies: Eggplant (Allergy, Intermediate, 10/09/16) AMRNOHILSON (Adverse Reaction, Severe, 10/09/16) .. Reported Meds & Prescriptions Reported Meds & Active Scripts Active Sucralfate Liq (Sucralfate) 1 Gram/10 Ml Naina 1 Gm PO ACHS Synthroid (Levothyroxine Sodium) 50 Mcg Tab 50 Mcg PO DAILY@0600 Pantoprazole (Pantoprazole Sodium) 40 Mg Tab 40 Mg PO BID Effervescent Potassium Chloride 25 Meq (Potassium Bicarb/Potassium Chloride) 25 Meq Tab 25 Meq PO BID Dicyclomine (Dicyclomine HCl) 20 Mg Tab 20 Mg PO TID Flovent Hfa 12 GM Inh (Fluticasone Propionate) 220 Mcg/Act Inh 1 Puff INH BID Use daily at the same time. Ventolin Hfa 18 GM Inh (Albuterol Sulfate) 90 Mcg/Act Aer 2 Puff INH Q4-6H PRN Albuterol Neb (Albuterol Sulfate) 2.5 Mg/3 Ml Neb 2.5 Mg NEB Q4HR NEB PRN Reported Clonidine (Clonidine HCl) 0.1 Mg Tab 0.1 Mg PO DAILY Atrovent HFA 12.9 GM Inh (Ipratropium [place]) 17 Mcg/Actuation Aer 2 Puff INH Q6HR PRN Lisinopril 40 Mg Tab 40 Mg PO DAILY Lorazepam 0.5 Mg Tab Unknown Dose PO DAILY PRN Novolin R Inj (Insulin Human Regular) 1,000 Unit/10 Ml Vial 0 SQ DIRECTED Sliding Scale As Directed. Lyrica (Pregabalin) 50 Mg Cap 100 Mg PO HS Metformin (Metformin HCl) 1,000 Mg Tab 1,000 Mg PO BIDPC PRN With meals Duloxetine DR (Duloxetine HCl) 20 Mg Capdr 20 Mg PO DAILY Review of Systems Except as stated in HPI: all other systems reviewed are Neg Physical Exam Narrative GENERAL: Well-nourished female patient, seemingly anxious but in no acute distress SKIN: Focused skin assessment warm/dry. HEAD: Atraumatic. Normocephalic. EYES: Pupils equal and round. No scleral icterus. No injection or drainage. ENT: No nasal bleeding or discharge. Mucous membranes pink and moist. NECK: Trachea midline. No JVD. CARDIOVASCULAR: Tachycardic rate and rhythm. No murmur appreciated. RESPIRATORY: No accessory muscle use. Inspiratory and expiratory wheeze, diminished bases to auscultation. Breath sounds equal bilaterally. GASTROINTESTINAL: Abdomen soft, non-tender, nondistended. Hepatic and splenic margins not palpable. MUSCULOSKELETAL: No obvious deformities. No clubbing. No cyanosis. No edema. NEUROLOGICAL: Awake and alert. No obvious cranial nerve deficits. Motor grossly within normal limits. Normal speech. Data Data Last Documented VS Vital Signs Date Time Temp Pulse Resp B/P (MAP) Pulse Ox O2 Delivery O2 Flow Rate FiO2 10/27/17 22:34 96 22 138/86 (103) 99 Room Air 10/27/17 19:45 98.6 Orders Orders Electrocardiogram (10/27/17 22:53) Basic Metabolic Panel (Bmp) (10/27/17 22:53) Complete Blood Count With Diff (10/27/17 22:53) Chest, Pa & Lat (10/27/17 22:53) Ecg Monitoring (10/27/17 22:53) Iv Access Insert/Monitor (10/27/17 22:53) Oximetry (10/27/17 22:53) Oxygen Administration (10/27/17 22:53) Methylprednisolone So Succ Inj (Solumedr (10/27/17 23:00) Albuterol-Ipratropium Neb (Duoneb Neb) (10/27/17 23:00) Sodium Chloride 0.9% Flush (Ns Flush) (10/27/17 23:00) MDM Medical Decision Making Medical Screen Exam Complete: Yes Emergency Medical Condition: Yes Medical Record Reviewed: Yes Differential Diagnosis Asthma exacerbation versus pneumonia versus bronchospasm versus esophageal spasm versus anxiety versus less likely ACS Narrative Course 47-year-old female presents emergency department for evaluation of chest tightness and difficulty breathing worsened over the last 2 days. Patient appears without distress. She is mildly tachycardic. She has inspiratory and expiratory wheeze with diminished bases. IV access is obtained, basic lab work is sent. Patient is given Solu-Medrol and duo nebs 3. 2300 patient is signed out to my attending physician who will reassess and disposition appropriately. Condition: Stable Abena العراقي October 27, 2017 22:58
[2017-10-27] MEDS ORDERED: methylPREDNISolone SOD SUCC 125 MG/2 ML VIAL IV PUSH ONE (23:00)
[2017-10-27] MEDS ORDERED: SODIUM CHLORIDE 0.9% FLUSH 10 ML FLUSH IVF PRN (23:00)
[2017-10-27] MEDS: RESP: ALBUTEROL 2.5 MG/IPRATROPIUM 0.5 MG NEB (SCH) INH ×2 (23:19→23:21)
[2017-10-27] MEDS ORDERED: ACETAMINOPHEN 500 MG CPLT PO ONE (23:30)
[2017-10-27 23:56] LABS: AUTOMATED NEUTROPHIL # 6.8 TH/MM3 (1.8-7.7); BASOPHIL % 0.3 % (0.0-2.0); EOSINOPHIL % 0.1 % (0.0-4.0); HEMATOCRIT 33.2 % (35.0-46.0); HEMOGLOBIN 10.7 GM/DL (11.6-15.3); LYMPH % 20.9 % (9.0-44.0); LYMPHOCYTE # 1.9 TH/MM3 (1.0-4.8); MEAN CELL VOLUME 67.9 FL (80.0-100.0); MEAN CORPUSCULAR HGB CONC 32.4 % (32.0-36.0); MEAN PLATELET VOLUME 10.6 FL (7.0-11.0); MONO % 4.7 % (0.0-8.0); MONOCYTE # 0.4 TH/MM3 (0-0.9); PLATELET COUNT 175 TH/MM3 (150-450); RED BLOOD COUNT 4.88 MIL/MM3 (4.00-5.30); RED CELL DISTRIBUTION WIDTH 20.7 % (11.6-17.2); WHITE BLOOD COUNT 9.2 TH/MM3 (4.0-11.0)
[2017-10-28] VITALS (8 sets, daily range): BP systolic 117–137; BP diastolic 55–83; PULSE 80–116; RESP 18–24; TEMP 98.3–98.6; O2SAT 95–100
[2017-10-28] MEDS ORDERED: LEVO75TA3 PO (00:02)
[2017-10-28] MEDS ORDERED: AMIT10TA6 PO (00:02)
[2017-10-28 00:08] LABS: BICARBONATE 24.4 MEQ/L (21.0-32.0); CALCIUM 9.3 MG/DL (8.5-10.1); CREATININE 1.06 MG/DL (0.50-1.00)
[2017-10-28 00:53] LABS: OVALOCYTES 1+ (NORMAL)
--- NOTE | 2017-10-28 02:01 | RADRPT ---
EXAM DATE/TIME: 10/28/2017 01:36 [facility] COMPARISON: CHEST PA & LAT, July 15, 2016, 23:58. INDICATIONS : Left anterior chest pain beneath the left breast. MEDICAL HISTORY : Hypertension. Lupus. Gastroparesis. GERD CVA SURGICAL HISTORY : Cholecystectomy. section. ENCOUNTER: Initial ACUITY: 1 day PAIN SCORE: 10/10 LOCATION: Left anterior chest FINDINGS: PA and lateral views of the chest demonstrate the lungs to be symmetrically aerated without evidence of mass, infiltrate or effusion. The cardiomediastinal contours are unremarkable. Osseous structure s are intact. CONCLUSION: Normal examination for a patient of this age. Je Zapata MD on October 28, 2017 at 1:58 Board Certified Radiologist. This report was verified electronically.
[2017-10-28] MEDS ORDERED: ACETAMINOPHEN 500 MG CPLT PO ONE (03:00)
[2017-10-28] MEDS ORDERED: SODIUM CHLOR 0.9% 1000 ML INJ 1,000 ML IV ONE (03:00)
[2017-10-28] MEDS ORDERED: HALOPERIDOL LACTATE 5 MG/ML AMP IV PUSH ONE (03:00)
[2017-10-28 03:07] LABS: TOTAL BILIRUBIN ADULT 0.5 MG/DL (0.2-1.0); TOTAL PROTEIN 9.3 GM/DL (6.4-8.2)
[2017-10-28] MEDS ORDERED: SODIUM CHLOR 0.9% 1000 ML INJ 1,000 ML IV SCH ×2 (04:15)
[2017-10-28 05:09] LABS: ALBUMIN 4.3 GM/DL (3.4-5.0); DIRECT BILIRUBIN ADULT 0.1 MG/DL (0.0-0.2); INDIRECT BILIRUBIN 0.4 MG/DL (0.0-0.8)
--- NOTE | 2017-10-28 05:42 | RADRPT ---
EXAM DATE/TIME: 10/28/2017 05:31 [facility] COMPARISON: CT ABDOMEN & PELVIS W/O CONTRAST, August 29, 2017, 20:19. INDICATIONS : Abdominal pain. ORAL CONTRAST: No oral contrast ingested. RADIATION DOSE: 10.89 CTDIvol (mGy) MEDICAL HISTORY : Gastroesophageal reflux disease. Gastroparesis. Diabetes mellitus type 2.Fibromyalgia. TIA. Lupus. Ga stritis. SURGICAL HISTORY : section. Cholecystectomy. ENCOUNTER: Initial ACUITY: 1 day PAIN SCALE: 5/10 LOCATION: abdomen TECHNIQUE: Volumetric scanning of the abdomen and pelvis was performed. Using automated exposure control and ad justment of the mA and/or kV according to patient size, radiation dose was kept as low as reasonably achievable to obtain optimal diagnostic quality images. DICOM format image data is available electro nically for review and comparison. FINDINGS: Lung bases are clear. Hepatic enlargement with fatty infiltration, relatively stable. Small hiatal he rnia. Previous cholecystectomy. Spleen, adrenals, kidneys and pancreas unremarkable. No free fluid. No bowel obstruction. Mild constipation. CONCLUSION: 1. Mild constipation. Small fat-containing umbilical hernia, stable. Small hiatal hernia. Je Zapata MD on October 28, 2017 at 5:40 Board Certified Radiologist. This report was verified electronically.
[2017-10-28] MEDS ORDERED: SODIUM CHLORIDE 0.9% FLUSH 10 ML FLUSH IV FLUSH PRN (06:15)
[2017-10-28] MEDS ORDERED: LACTULOSE SYRUP 20 GM/30 ML CUP PO PRN (06:15)
[2017-10-28] MEDS ORDERED: ACETAMINOPHEN 325 MG TAB PO PRN (06:15)
[2017-10-28] MEDS ORDERED: DEXTROSE 50% IN WATER 50 ML VIAL(D50) IV PUSH PRN (06:15)
[2017-10-28] MEDS ORDERED: LORazepam 2 MG/ML VIAL IV PUSH PRN (06:15)
[2017-10-28] MEDS ORDERED: BISACODYL 10 MG SUPP RECTAL PRN (06:15)
[2017-10-28] MEDS ORDERED: SENNOSIDES 8.6 MG TAB PO PRN (06:15)
[2017-10-28] MEDS ORDERED: ACETAMINOPHEN/HYDROcodone 325 MG/5 MG TAB PO PRN (06:15)
[2017-10-28] MEDS ORDERED: IPRATROPIUM BROMIDE 17 MCG/ACT 12.9 GM INHALER INH PRN (06:15)
[2017-10-28] MEDS ORDERED: GLUCAGON 1 MG/ML VIAL OTHER PRN (06:15)
[2017-10-28] MEDS ORDERED: MAGNESIUM HYDROXIDE SUSP 30 ML CUP PO PRN (06:15)
[2017-10-28] MEDS ORDERED: MORPHINE SULFATE 4 MG/ML INJ IV PUSH PRN (06:30)
[2017-10-28] MEDS: SODIUM CHLOR 0.9% 1000 ML INJ 1,000 ML IV SCH ×2 (06:30→18:06)
[2017-10-28] MEDS: METOCLOPRAMIDE HCL 10 MG/2 ML VIAL IV PUSH SCH ×3 (06:31→20:57)
[2017-10-28] MEDS: LEVOTHYROXINE SODIUM 75 MCG TAB PO SCH (06:36)
[2017-10-28] MEDS ORDERED: RESP: IPRATROPIUM 0.5 MG/2.5 ML NEB NEB PRN (06:45)
[2017-10-28] MEDS: INSULIN ASPART SUPPLEMENTAL SCALE SQ SCH ×4 (08:09→21:15)
--- NOTE | 2017-10-28 09:17 | HHI.HP ---
[facility] Bubba Reddy MD Admission Diagnosis gastroparesis, dehydration Diagnoses: Chief Complaint: sob, wheezing, abd pain, n/v Travel History International Travel<30 Days: No Contact w/Intl Traveler <30 Da: No Traveled to Known Affected Are: No History of Present Illness pleasant 47 -year-old female with history of SLE, anxiety, hypertension, asthma , presents emergency department for evaluation of chest tightness and shortness of breath worsening over the last 2 days. She went to her primary care provider 's office who told her it was her asthma, gave her an " injection of something" , and sent her home. She states she has been doing her nebulized treatments without any improvement in her symptoms. She states that she feels like she is wheezing a lot and it is difficult to take a deep breath. She denies any fever. States she has felt chilled. She has had some mild cough. She is also complaining of abd pain and nausea and vomiting. No fever or chills. No n/v/d/c. Review of Systems Except as stated in HPI: all other systems reviewed are Neg Past Family Social History Past Medical History SLE, Gastritis, gastroparesis, diabetes mellitus, asthma, sinus tachycardia, disorder, TIA, anemia of chronic disease, carpal tunnel syndrome Past Surgical History Carpal tunnel release EGD, colonoscopies Reported Medications Reported Meds & Active Scripts Active Sucralfate Liq (Sucralfate) 1 Gram/10 Ml Naina 1 Gm PO ACHS Pantoprazole (Pantoprazole Sodium) 40 Mg Tab 40 Mg PO BID Dicyclomine (Dicyclomine HCl) 20 Mg Tab 20 Mg PO TID Flovent Hfa 12 GM Inh (Fluticasone Propionate) 220 Mcg/Act Inh 1 Puff INH BID Use daily at the same time. Ventolin Hfa 18 GM Inh (Albuterol Sulfate) 90 Mcg/Act Aer 2 Puff INH Q4-6H PRN Albuterol Neb (Albuterol Sulfate) 2.5 Mg/3 Ml Neb 2.5 Mg NEB Q4HR NEB PRN Reported Amitriptyline (Amitriptyline HCl) 10 Mg Tab 10 Mg PO HS Levothyroxine (Levothyroxine Sodium) 75 Mcg Tab 75 Mcg PO DAILY Clonidine (Clonidine HCl) 0.1 Mg Tab 0.1 Mg PO DAILY Atrovent HFA 12.9 GM Inh (Ipratropium [place]) 17 Mcg/Actuation Aer 2 Puff INH Q6HR PRN Lisinopril 40 Mg Tab 40 Mg PO DAILY Lorazepam 0.5 Mg Tab Unknown Dose PO DAILY PRN Novolin R Inj (Insulin Human Regular) 1,000 Unit/10 Ml Vial 0 SQ DIRECTED Sliding Scale As Directed. Lyrica (Pregabalin) 50 Mg Cap 100 Mg PO HS Metformin (Metformin HCl) 1,000 Mg Tab 1,000 Mg PO BIDPC PRN With meals Duloxetine DR (Duloxetine HCl) 20 Mg Capdr 20 Mg PO DAILY Allergies: Coded Allergies: broccoli (Verified Allergy, Severe, Diarrhea, 08/29/17) RASH cephalexin (Verified Allergy, Severe, Diarrhea, 08/29/17) ALSO RASH iodine (Verified Allergy, Severe, Anaphylaxis, 08/29/17) potassium iodide (Verified Allergy, Severe, Anaphylaxis, 08/29/17) povidone-iodine (Verified Allergy, Severe, Anaphylaxis, 08/29/17) shellfish derived (Verified Allergy, Severe, Anaphylaxis, 08/29/17) sodium iodide (Verified Allergy, Severe, Anaphylaxis, 08/29/17) sodium iodide (Verified Allergy, Severe, Anaphylaxis, 08/29/17) theophylline (Verified Allergy, Severe, Anaphylaxis, 08/29/17) aminophylline (Verified Allergy, Intermediate, MAKES HER HYPER ELEVATES BP , 08/29/17) naproxen (Verified Allergy, Intermediate, Rash, 08/29/17) penicillin G (Verified Allergy, Intermediate, RASH, 08/29/17) aminopyrine (Verified Allergy, Unknown, 08/29/17) DENIES ALLERGY azathioprine (Verified Allergy, Unknown, 08/29/17) diphenhydramine (Verified Adverse Reaction, Mild, palpitations, 08/29/17) pushed too quickly ibuprofen (Verified Adverse Reaction, Mild, 08/29/17) stomach pain Uncoded Allergies: Eggplant (Allergy, Intermediate, 10/09/16) AMRNOHILSON (Adverse Reaction, Severe, 10/09/16) .. Family History Mother diabetes and psychosis Social History Denies alcohol use, illicit drug use or tobacco use. Disability due to SLE Physical Exam Vital Signs Vital Signs Date Time Temp Pulse Resp B/P (MAP) Pulse Ox O2 Delivery O2 Flow Rate FiO2 10/28/17 08:55 10/28/17 08:54 98.4 113 24 122/66 (84) 95 10/28/17 08:00 86 18 118/56 (76) 100 Room Air 10/28/17 06:42 98 10/27/17 22:34 96 22 138/86 (103) 99 Room Air 10/27/17 19:45 98.6 110 24 126/70 (88) 98 Physical Exam GENERAL: This is a well-nourished, well-developed patient, in no apparent distress. SKIN: No rashes, ecchymoses or lesions. Cool and dry. HEAD: Atraumatic. Normocephalic. No temporal or scalp tenderness. EYES: Pupils equal round and reactive. Extraocular motions intact. No scleral icterus. No injection or drainage. ENT: Nose without bleeding, purulent drainage or septal hematoma. Throat without erythema, tonsillar hypertrophy or exudate. Uvula midline. Airway patent. NECK: Trachea midline. No JVD or lymphadenopathy. Supple, nontender, no meningeal signs. CARDIOVASCULAR: Regular rate and rhythm without murmurs, gallops, or rubs. RESPIRATORY: Clear to auscultation. Breath sounds equal bilaterally. No wheezes , rales, or rhonchi. GASTROINTESTINAL: Abdomen soft, non-tender, nondistended. No hepato-splenomegaly , or palpable masses. No guarding. MUSCULOSKELETAL: Extremities without clubbing, cyanosis, or edema. No joint tenderness, effusion, or edema noted. No calf tenderness. Negative Homans sign bilaterally. NEUROLOGICAL: Awake and alert. Cranial nerves II through XII intact. Motor and sensory grossly within normal limits. Five out of 5 muscle strength in all muscle groups. Normal speech. Laboratory Laboratory Tests Test 10/27/17 23:30 10/28/17 03:08 White Blood Count 9.2 Red Blood Count 4.88 Hemoglobin 10.7 Hematocrit 33.2 Mean Corpuscular Volume 67.9 Mean Corpuscular Hemoglobin 22.0 Mean Corpuscular Hemoglobin Concent 32.4 Red Cell Distribution Width 20.7 Platelet Count 175 Mean Platelet Volume 10.6 Neutrophils (%) (Auto) 74.0 Lymphocytes (%) (Auto) 20.9 Monocytes (%) (Auto) 4.7 Eosinophils (%) (Auto) 0.1 Basophils (%) (Auto) 0.3 Neutrophils # (Auto) 6.8 Lymphocytes # (Auto) 1.9 Monocytes # (Auto) 0.4 Eosinophils # (Auto) 0.0 Basophils # (Auto) 0.0 CBC Comment AUTO DIFF Differential Comment AUTO DIFF CONFIRMED Platelet Estimate NORMAL Platelet Morphology Comment ENLARGED Ovalocytes 1+ Blood Urea Nitrogen 13 Creatinine 1.06 Random Glucose 125 Calcium Level 9.3 Sodium Level 136 Potassium Level 4.3 Chloride Level 99 Carbon Dioxide Level 24.4 Anion Gap 13 Estimat Glomerular Filtration Rate 56 Total Bilirubin 0.5 Direct Bilirubin 0.1 Indirect Bilirubin 0.4 Aspartate Amino Transf (AST/SGOT) 96 Alanine Aminotransferase (ALT/SGPT) 117 Alkaline Phosphatase 120 Total Protein 9.3 Albumin 4.3 Lipase 285 Lactic Acid Level 4.5 Result Diagram: 10/27/17 2330 10/27/17 2330 Caprini VTE Risk Assessment Caprini VTE Risk Assessment: Mod/High Risk (score >= 2) Caprini Risk Assessment Model Point Value = 1 Point Value = 2 Point Value = 3 Point Value = 5 Age 41-60 Minor surgery BMI > 25 kg/m2 Swollen legs Varicose veins or History of unexplained or recurrent spontaneous Oral contraceptives or hormone replacement Sepsis (< 1 month) Serious lung disease, including pneumonia (< 1 month) Abnormal pulmonary function Acute myocardial infarction Congestive heart failure (< 1 month) History of inflammatory bowel disease Medical patient at bed rest Age 61-74 Arthroscopic surgery Major open surgery (> 45 min) Laparoscopic surgery (> 45 min) Malignancy Confined to bed (> 72 hours) Immobilizing plaster cast Central venous access Age >= 75 History of VTE Family history of VTE Factor V Leiden Prothrombin [id number] Lupus anticoagulant Anticardiolipin antibodies Elevated serum homocysteine Heparin-induced thrombocytopenia Other congenital or acquired thrombophilia Stroke (< 1 month) Elective arthroplasty Hip, pelvis, or leg fracture Acute spinal cord injury (< 1 month) Prophylaxis Regimen Total Risk Factor Score Risk Level Prophylaxis Regimen 0-1 Low Early ambulation 2 Moderate Order ONE of the following: *Sequential Compression Device (SCD) *Heparin 5000 units SQ BID 3-4 Higher Order ONE of the following medications: *Heparin 5000 units SQ TID *Enoxaparin/Lovenox 40 mg SQ daily (WT < 150 kg, CrCl > 30 mL/min) *Enoxaparin/Lovenox 30 mg SQ daily (WT < 150 kg, CrCl > 10-29 mL/min) *Enoxaparin/Lovenox 30 mg SQ BID (WT < 150 kg, CrCl > 30 mL/min) AND/OR *Sequential Compression Device (SCD) 5 or more Highest Order ONE of the following medications: *Heparin 5000 units SQ TID (Preferred with Epidurals) *Enoxaparin/Lovenox 40 mg SQ daily (WT < 150 kg, CrCl > 30 mL/min) *Enoxaparin/Lovenox 30 mg SQ daily (WT < 150 kg, CrCl > 10-29 mL/min) *Enoxaparin/Lovenox 30 mg SQ BID (WT < 150 kg, CrCl > 30 mL/min) AND *Sequential Compression Device (SCD) Assessment and Plan Assessment and Plan 47-year-old female with history of lupus, gastritis, gastroparesis, diabetes, asthma, anxiety, anemia of chronic, TIA, presents with abdominal pain, nausea/ vomiting, and hematemesis Gastritis/Gastroparesis/Recent GI Bleed: 08/29 CT abd/pelvis showed mild constipation; hepatomegaly with fatty infiltration, fat-containing umbilical hernia ~3cm; small hiatal hernia 08/30 EGD showed gastritis, distal esophagitis; hiatal hernia; biopsies taken 08/31 MRCP showed postop cholecystectomy with mild biliary ductal dilatation to 11mm; no choledocholithiasis; fatty liver GI consulted and following, appreciate recommendations Patient was seen by GS for hernia on recent admission, no acute surgical intervention recommended Continue on reglan 10mg achs, Protonix 40mg bid, Carafate 1gm po achs, bentyl 20mg tid today Supportive treatment with IVF, antiemetics, and pain control prn Advance diet as tolerated Asthma: with exacerbation Duonebs, solumedrol taper as tolerated O2 support as need Monitor O2 sat MIGUEL/ Lactic acidosis 2/2 dehydration. Start IVF . Monitor kidney indices. Monitor LA. Avoid nephrotoxic agents Umbilical Hernia: Patient was seen by GS for hernia on recent admission, no acute surgical intervention recommended Lupus/Chronic Pain: chronic -continue home medications Hypertension: Monitor clesely and adjust meds as need continue patient's lisinopril and clonidine Anxiety/Panic Disorder: continue home meds. Monitor add ativan and pr haldol if need Hypothyroidism: continue on levothyroxine 50mcg daily Diabetes Mellitus type 2: chronic -monitor accu-checks and cover with medium- dosed SSI DVT Prophylaxis: teds/SCDs Discussed Condition With pt, nurse Tia Zuniga MD October 28, 2017 09:17
[2017-10-28] MEDS: DULoxetine HCl DR 20 MG CAP PO SCH (09:41)
[2017-10-28] MEDS: SODIUM CHLORIDE 0.9% FLUSH 10 ML FLUSH IV FLUSH SCH ×2 (09:41→21:11)
[2017-10-28] MEDS: PANTOPRAZOLE SOD 40 MG DELAYED RELEASE TAB PO SCH ×2 (09:42→20:54)
[2017-10-28] MEDS: cloNIDine HCL 0.1 MG TAB PO SCH (09:42)
[2017-10-28] MEDS: DOCUSATE SODIUM 50 MG/SENNA 8.6 MG TAB PO SCH ×2 (09:43→20:54)
[2017-10-28] MEDS: FLUTICASONE PROPIONATE 220 MCG/ACT 12 GM INHALER INH SCH ×2 (10:30→20:58)
[2017-10-28] MEDS: RESP: ALBUTEROL 2.5 MG/IPRATROPIUM 0.5 MG NEB (SCH) NEB ×3 (11:23→19:21)
[2017-10-28] MEDS: methylPREDNISolone SOD SUCC 40 MG/1 ML VIAL IV PUSH SCH ×2 (13:12→18:06)
--- NOTE | 2017-10-28 13:43 | EKG ---
Date Performed: 10/27/2017 Time Performed: 22:37:43 PTAGE: 47 years EKG: Sinus rhythm NONSPECIFIC T-WAVE ABNORMALITY BORDERLINE ECG NO PREVIOUS TRACING DOCTOR: Geovanni Echavarria Interpretating Date/Time 10/28/2017 13:41:50
[2017-10-28] MEDS ORDERED: PREGABALIN 100 MG CAP PO SCH (21:00)
[2017-10-29] MEDS: methylPREDNISolone SOD SUCC 40 MG/1 ML VIAL IV PUSH SCH ×2 (00:08→05:10)
[2017-10-29 00:16] VITALS: BP 131/60; PULSE 96; RESP 18; TEMP 97.8; O2SAT 95
[2017-10-29 03:08] VITALS: BP 146/83; PULSE 102; RESP 18; TEMP 97.9; O2SAT 95
[2017-10-29] MEDS: SODIUM CHLOR 0.9% 1000 ML INJ 1,000 ML IV SCH (04:01)
[2017-10-29] MEDS: LEVOTHYROXINE SODIUM 75 MCG TAB PO SCH (05:10)
[2017-10-29] MEDS: METOCLOPRAMIDE HCL 10 MG/2 ML VIAL IV PUSH SCH (05:10)
[2017-10-29] MEDS: RESP: ALBUTEROL 2.5 MG/IPRATROPIUM 0.5 MG NEB (SCH) NEB ×2 (07:26→11:54)
[2017-10-29 08:06] VITALS: BP 156/80; PULSE 94; RESP 20; TEMP 99.2; O2SAT 96
[2017-10-29] MEDS: SODIUM CHLORIDE 0.9% FLUSH 10 ML FLUSH IV FLUSH SCH (09:00)
[2017-10-29] MEDS: cloNIDine HCL 0.1 MG TAB PO SCH (09:00)
[2017-10-29] MEDS: DULoxetine HCl DR 20 MG CAP PO SCH (09:00)
[2017-10-29] MEDS: PANTOPRAZOLE SOD 40 MG DELAYED RELEASE TAB PO SCH (09:00)
[2017-10-29] MEDS: DOCUSATE SODIUM 50 MG/SENNA 8.6 MG TAB PO SCH (09:01)
[2017-10-29] MEDS: FLUTICASONE PROPIONATE 220 MCG/ACT 12 GM INHALER INH SCH (09:01)
[2017-10-29] MEDS: INSULIN ASPART SUPPLEMENTAL SCALE SQ SCH (09:02)
[2017-10-29 09:03] LABS: AUTOMATED NEUTROPHIL # 11.3 TH/MM3 (1.8-7.7); BASOPHIL % 0.2 % (0.0-2.0); HEMATOCRIT 28.9 % (35.0-46.0); HEMOGLOBIN 9.2 GM/DL (11.6-15.3); LYMPH % 8.4 % (9.0-44.0); LYMPHOCYTE # 1.1 TH/MM3 (1.0-4.8); MEAN CELL VOLUME 68.2 FL (80.0-100.0); MEAN CORPUSCULAR HEMOGLOBIN 21.6 PG (27.0-34.0); MEAN CORPUSCULAR HGB CONC 31.7 % (32.0-36.0); MEAN PLATELET VOLUME 11.4 FL (7.0-11.0); MONO % 2.7 % (0.0-8.0); MONOCYTE # 0.3 TH/MM3 (0-0.9); NEUT % 88.7 % (16.0-70.0); PLATELET COUNT 154 TH/MM3 (150-450); RED BLOOD COUNT 4.24 MIL/MM3 (4.00-5.30); WHITE BLOOD COUNT 12.7 TH/MM3 (4.0-11.0)
[2017-10-29 10:02] LABS: ALBUMIN 3.6 GM/DL (3.4-5.0); ALKALINE PHOSPHATASE 93 U/L (45-117); ALT (GPT) 76 U/L (10-53); AST (GOT) 32 U/L (15-37); BICARBONATE 22.7 MEQ/L (21.0-32.0); BLOOD UREA NITROGEN 10 MG/DL (7-18); CALCIUM 8.9 MG/DL (8.5-10.1); CHLORIDE 104 MEQ/L (98-107); CREATININE 0.95 MG/DL (0.50-1.00); GLOMERULAR FILTRATION RATE 63 ML/MIN (>89); GLUCOSE,RANDOM 185 MG/DL (74-106); SODIUM (NA) 138 MEQ/L (136-145); TOTAL BILIRUBIN ADULT 0.3 MG/DL (0.2-1.0); TOTAL PROTEIN 7.8 GM/DL (6.4-8.2)
[2017-10-29] MEDS ORDERED: LACTTAB8 PO (10:28)
[2017-10-29] MEDS ORDERED: AZIT250T3 PO (10:28)
--- NOTE | 2017-10-29 10:30 | HHI.DS ---
Discharge Summary Admission Date October 28, 2017 at 06:06 Discharge Date: October 29, 2017 Admitting Diagnosis gastroparesis, dehydration (1) Acute asthma exacerbation ICD Code: J45.901 - Unspecified asthma with (acute) exacerbation Diagnosis: Principal Status: Acute Procedures None Brief History - From Admission pleasant 47 -year-old female with history of SLE, anxiety, hypertension, asthma , presents emergency department for evaluation of chest tightness and shortness of breath worsening over the last 2 days. She went to her primary care provider 's office who told her it was her asthma, gave her an " injection of something" , and sent her home. She states she has been doing her nebulized treatments without any improvement in her symptoms. She states that she feels like she is wheezing a lot and it is difficult to take a deep breath. She denies any fever. States she has felt chilled. She has had some mild cough. She is also complaining of abd pain and nausea and vomiting. No fever or chills. No n/v/d/c. CBC/BMP: 10/29/17 0810 10/29/17 0810 Significant Findings Laboratory Tests Test 10/27/17 23:30 10/28/17 03:08 10/28/17 12:53 10/29/17 08:10 Hemoglobin 10.7 GM/DL (11.6-15.3) 9.2 GM/DL (11.6-15.3) Hematocrit 33.2 % (35.0-46.0) 28.9 % (35.0-46.0) Mean Corpuscular Volume 67.9 FL (80.0-100.0) 68.2 FL (80.0-100.0) Mean Corpuscular Hemoglobin 22.0 PG (27.0-34.0) 21.6 PG (27.0-34.0) Red Cell Distribution Width 20.7 % (11.6-17.2) 21.0 % (11.6-17.2) Neutrophils (%) (Auto) 74.0 % (16.0-70.0) 88.7 % (16.0-70.0) Platelet Morphology Comment ENLARGED (NORMAL) Ovalocytes 1+ (NORMAL) Creatinine 1.06 MG/DL (0.50-1.00) Random Glucose 125 MG/DL (74-106) 185 MG/DL (74-106) Estimat Glomerular Filtration Rate 56 ML/MIN (>89) 63 ML/MIN (>89) Aspartate Amino Transf (AST/SGOT) 96 U/L (15-37) Alanine Aminotransferase (ALT/SGPT) 117 U/L (10-53) 76 U/L (10-53) Alkaline Phosphatase 120 U/L (45-117) Total Protein 9.3 GM/DL (6.4-8.2) Lactic Acid Level 4.5 mmol/L (0.4-2.0) 3.7 mmol/L (0.4-2.0) White Blood Count 12.7 TH/MM3 (4.0-11.0) Mean Corpuscular Hemoglobin Concent 31.7 % (32.0-36.0) Mean Platelet Volume 11.4 FL (7.0-11.0) Lymphocytes (%) (Auto) 8.4 % (9.0-44.0) Neutrophils # (Auto) 11.3 TH/MM3 (1.8-7.7) Hospital Course Mrs. Chaudhry is a 47 year old female. She came into the hospital last night secondary to asthma exacerbation. No GI symptoms were present during this visit. She reports that she is also been having cough. The cough is mildly productive. Her asthma exacerbation has been ongoing for several days and she has seen her primary care doctor. As an outpatient they have tried upgrading her breathing treatments and she received a steroid injection in her upper arm. Despite these treatments she still failed outpatient therapy and came into the hospital last night. We increase her steroids and provided her with more intense nebulized treatments. She has benefit this morning and feels back to baseline. Medically clear and stable for discharge home today. I would like her to discharge on 5 days of p.o. antibiotics with probiotics and continuation of steroids which she has previously been prescribed to p.o. treatment. Pt Condition on Discharge: Stable Discharge Disposition: Discharge Home Discharge Time: <= 30 minutes Discharge Instructions DIET: Follow Instructions for: As Tolerated, No Restrictions Activities you can perform: Regular-No Restrictions Follow up Referrals: PCP Follow-up - 2 Weeks New Medications: Azithromycin (Azithromycin) 250 Mg Tab 250 MG PO DAILY for Infection, #5 TAB 0 Refills Lactobacillus Acidophilus (Lactobacillus Acidophilus) 1 Billion Cell Tab 1 TAB PO TIDAC for Nutritional Supplement, #30 TAB 0 Refills Continued Medications: Albuterol 18 GM Inh (Ventolin Hfa 18 GM Inh) 90 Mcg/Act Aer 2 PUFF INH Q4-6H PRN for SHORTNESS OF BREATH, #1 INHALER 0 Refills Albuterol Neb (Albuterol Neb) 2.5 Mg/3 Ml Neb 2.5 MG NEB Q4HR NEB PRN for SHORTNESS OF BREATH, #60 NEBULE 0 Refills Amitriptyline (Amitriptyline) 10 Mg Tab 10 MG PO HS, TAB Clonidine (Clonidine) 0.1 Mg Tab 0.1 MG PO DAILY for Blood Pressure Management, #60 TAB 0 Refills Dicyclomine (Dicyclomine) 20 Mg Tab 20 MG PO TID for GI, #90 TAB [address] (Duloxetine DR) 20 Mg Capdr 20 MG PO DAILY, CAP 0 Refills Fluticasone 12 GM Inh (Flovent Hfa 12 GM Inh) 220 Mcg/Act Inh 1 PUFF INH BID for Asthma Management, #1 INHALER 0 Refills Use daily at the same time. Insulin Human Regular Inj (Novolin R Inj) 1,000 Unit/10 Ml Vial 0 SQ DIRECTED for Blood Sugar Management, #10 ML 0 Refills Sliding Scale As Directed. Ipratropium HFA 12.9 GM Inh (Atrovent HFA 12.9 GM Inh) 17 Mcg/Actuation Aer 2 PUFF INH Q6HR PRN for SHORTNESS OF BREATH, #1 INHALER 0 Refills Levothyroxine (Levothyroxine) 75 Mcg Tab 75 MCG PO DAILY for Thyroid, #30 TAB 0 Refills Lisinopril (Lisinopril) 40 Mg Tab 40 MG PO DAILY for Blood Pressure Management, #30 TAB 0 Refills Lorazepam (Lorazepam) 0.5 Mg Tab Unknown Dose PO DAILY PRN for ANXIETY, TAB 0 Refills Metformin (Metformin) 1,000 Mg Tab 1000 MG PO BIDPC PRN for BLOOD SUGAR BELOW 150, #60 TAB 0 Refills With meals Pantoprazole (Pantoprazole) 40 Mg Tab 40 MG PO BID for Reflux, #60 TAB 0 Refills Pregabalin (Lyrica) 50 Mg Cap 100 MG PO HS, #90 CAP 0 Refills Sucralfate Liq (Sucralfate Liq) 1 Gram/10 Ml Naina 1 GM PO ACHS for GASTRITIS, #120 ML 0 Refills Lito Johnson MD October 29, 2017 10:30
[2017-10-29 11:16] LABS: OVALOCYTES 1+ (NORMAL)
[2017-10-29 13:29] VITALS: BP 120/68; PULSE 82; RESP 20; TEMP 98.2; O2SAT 98
== END 2017-10-29 15:34 | disposition home or self-care (01) ==
LOC: NEPC 19:38 → NEDA 10-28 06:06 → NEPHCDU 10-28 09:51
PROVIDERS: ADMIT Hospitalist; ATTEND Hospitalist
DX: J45.901 Unspecified asthma with (acute) exacerbation (principal); E11.43 Type 2 diabetes mellitus with diabetic autonomic (poly)neuropathy; K31.84 Gastroparesis; E87.2 Acidosis; R00.0 Tachycardia, unspecified; R16.0 Hepatomegaly, not elsewhere classified; K76.0 Fatty (change of) liver, not elsewhere classified; K42.9 Umbilical hernia without obstruction or gangrene; G89.29 Other chronic pain; I10 Essential (primary) hypertension; F41.0 Panic disorder [episodic paroxysmal anxiety]; E03.9 Hypothyroidism, unspecified; M32.9 Systemic lupus erythematosus, unspecified; K21.9 Gastro-esophageal reflux disease without esophagitis; M79.7 Fibromyalgia; K44.9 Diaphragmatic hernia without obstruction or gangrene; K59.00 Constipation, unspecified; Z79.899 Other long term (current) drug therapy; Z79.84 Long term (current) use of oral hypoglycemic drugs; Z86.73 Personal history of transient ischemic attack (TIA), and cerebral infarction without residual deficits
CPT/HCPCS: 71046; 74176; 80048; 80053; 80076; 82948; 83605; 83690; 85025; 93005; 94640; 94664; 96361; 96372; 96374; 96375; 96376; 99285; G0378; J1630; J1815; J2765; J2920; J2930; J7030

== ENCOUNTER 2017-10-31 22:08 | Emergency (ER) | payer OTHER ==
[~2017-10-31] VITALS: Ht 162.6 cm; Wt 90.0 kg
[~2017-10-31 22:08] MED LIST changes: +AMIT10TA6 PO; +AZIT250T3 PO; -KLYTECL PO; +LACTTAB8 PO; -LEVO.05 PO; +LEVO75TA3 PO
[2017-10-31 22:16] VITALS: BP 126/72; PULSE 118; RESP 20; TEMP 98; O2SAT 98
[2017-10-31 22:24] VITALS: BP_SYST 130; BP_SYST 133; BP_DIAS 81; BP_DIAS 82; PULSE 110; RESP 20; TEMP 98; O2SAT 96; O2SAT 98
[2017-10-31 22:25] VITALS: RESP 20
--- NOTE | 2017-10-31 22:28 | PD ---
HPI Chief Complaint: Chest Pain Time Seen by Provider: 22:21 Travel History International Travel<30 days: No Contact w/Intl Traveler<30days: No Traveled to known affect area: No History of Present Illness HPI 47yo F with PMH of asthma, fibromyalgia, gastroparesis, lupus, HTN, DM presents to the ED with c/o chest pain today. Said it was midsternal and radiated to bilateral proximal arms that is sharp and dull at the same time. Pain is intermittent, lasting seconds at a time and worst with movement. Pt has been coughing a lot lately and had asthma exacerbation lately. Said she feels sob as well. Feels dizzy. Denies any fever, vomiting, abdominal pain, focal weakness or numbness. PFSH Past Medical History Hx Anticoagulant Therapy: Yes Asthma: Yes Autoimmune Disease: Yes (LUPUS) Blood Disorders: No Anxiety: Yes Depression: No Heart Rhythm Problems: No Cancer: No Cardiovascular Problems: Yes (HTN) High Cholesterol: No Chest Pain: No Congestive Heart Failure: No COPD: No Cerebrovascular Accident: Yes (TIA) Diabetes: Yes (metformin, Novolin R) Patient Takes Glucophage: Yes Diminished Hearing: No Endocrine: Yes (TYPE 2 DM) Fibromyalgia: Yes Gastrointestinal Disorders: Yes (GASTRITIS, GASTRPORESIS, GERD, hernia) GERD: Yes Genitourinary: No Hepatitis: No Hiatal Hernia: No Hypertension: Yes Immune Disorder: No Implanted Vascular Access Dvce: No Medical other: Yes (ANEMIA) Musculoskeletal: Yes (BIALTERAL CARPAL TUNNEL) Neurologic: Yes (FIBROMYALGIA, MINI STROKE, LIN/MIGRAINES) Psychiatric: Yes (ANXIETY) Reproductive: No Respiratory: Yes (Asthma) Immunizations Current: Yes Sleep Apnea: No Thyroid Disease: No Tetanus Vaccination: < 5 Years Influenza Vaccination: Yes ?: Not : 2 Para: 2 Miscarriage: 0 : 0 Past Surgical History Abdominal Surgery: Yes (CHOLECYSTECTOMY) AICD: No Cardiac Surgery: No Section: Yes (X2) Cholecystectomy: Yes Ear Surgery: No Endocrine Surgery: No Eye Surgery: No Genitourinary Surgery: No Gynecologic Surgery: Yes ( X 2) Joint Replacement: No Neurologic Surgery: No Oral Surgery: Yes (WISDOM TEETH) Pacemaker: No Thoracic Surgery: No Other Surgery: Yes (tendonitis - BL. HAND, ) Social History Alcohol Use: No Tobacco Use: No Substance Use: No Allergies-Medications (Allergen,Severity, Reaction): Coded Allergies: broccoli (Verified Allergy, Severe, Diarrhea, 10/31/17) RASH cephalexin (Verified Allergy, Severe, Diarrhea, 10/31/17) ALSO RASH iodine (Verified Allergy, Severe, Anaphylaxis, 10/31/17) potassium iodide (Verified Allergy, Severe, Anaphylaxis, 10/31/17) povidone-iodine (Verified Allergy, Severe, Anaphylaxis, 10/31/17) shellfish derived (Verified Allergy, Severe, Anaphylaxis, 10/31/17) sodium iodide (Verified Allergy, Severe, Anaphylaxis, 10/31/17) sodium iodide (Verified Allergy, Severe, Anaphylaxis, 10/31/17) theophylline (Verified Allergy, Severe, Anaphylaxis, 10/31/17) aminophylline (Verified Allergy, Intermediate, MAKES HER HYPER ELEVATES BP , 10/31/17) naproxen (Verified Allergy, Intermediate, Rash, 10/31/17) penicillin G (Verified Allergy, Intermediate, RASH, 10/31/17) aminopyrine (Verified Allergy, Unknown, 10/31/17) DENIES ALLERGY azathioprine (Verified Allergy, Unknown, 10/31/17) diphenhydramine (Verified Adverse Reaction, Mild, palpitations, 10/31/17) pushed too quickly ibuprofen (Verified Adverse Reaction, Mild, 10/31/17) stomach pain Uncoded Allergies: Eggplant (Allergy, Intermediate, 10/09/16) AMRNOHILSON (Adverse Reaction, Severe, 10/09/16) .. Reported Meds & Prescriptions Reported Meds & Active Scripts Active Deltasone (Prednisone) 20 Mg Tab 20 Mg PO BID 5 Days Ventolin Hfa 18 GM Inh (Albuterol Sulfate) 90 Mcg/Act Aer 2 Puff INH Q4H PRN Azithromycin 250 Mg Tab 250 Mg PO DAILY Lactobacillus Acidophilus 1 Billion Cell Tab 1 Tab PO TIDAC Sucralfate Liq (Sucralfate) 1 Gram/10 Ml Naina 1 Gm PO ACHS Pantoprazole (Pantoprazole Sodium) 40 Mg Tab 40 Mg PO BID Dicyclomine (Dicyclomine HCl) 20 Mg Tab 20 Mg PO TID Flovent Hfa 12 GM Inh (Fluticasone Propionate) 220 Mcg/Act Inh 1 Puff INH BID Use daily at the same time. Ventolin Hfa 18 GM Inh (Albuterol Sulfate) 90 Mcg/Act Aer 2 Puff INH Q4-6H PRN Albuterol Neb (Albuterol Sulfate) 2.5 Mg/3 Ml Neb 2.5 Mg NEB Q4HR NEB PRN Reported Prednisone 10 Mg Tab 10 Mg PO DAILY Quetiapine (Quetiapine Fumarate) 50 Mg Tab 50 Mg PO BID Promethazine (Promethazine HCl) 12.5 Mg Tab 25 Mg PO Q6H PRN Chlorthalidone 25 Mg Tab 25 Mg PO DAILY Ferrous Sulfate 325 Mg (65 Mg Iron) Tablet 325 Mg PO DAILY Senna-Plus (Sennosides-Docusate Sodium) 8.6-50 Mg Tab 2 Tab PO DAILY Meloxicam 15 Mg Tab 15 Mg PO DAILY PRN Atorvastatin (Atorvastatin Calcium) 10 Mg Tab 10 Mg PO HS Amitriptyline (Amitriptyline HCl) 10 Mg Tab 10 Mg PO HS Levothyroxine (Levothyroxine Sodium) 75 Mcg Tab 75 Mcg PO DAILY Clonidine (Clonidine HCl) 0.1 Mg Tab 0.1 Mg PO DAILY Atrovent HFA 12.9 GM Inh (Ipratropium [place]) 17 Mcg/Actuation Aer 2 Puff INH Q6HR PRN Lisinopril 40 Mg Tab 40 Mg PO DAILY Lorazepam 0.5 Mg Tab Unknown Dose PO BID PRN Novolin R Inj (Insulin Human Regular) 1,000 Unit/10 Ml Vial 0 SQ DIRECTED Sliding Scale As Directed. Lyrica (Pregabalin) 50 Mg Cap 100 Mg PO HS Metformin (Metformin HCl) 1,000 Mg Tab 1,000 Mg PO BID PRN 1 tablet by mouth daily Duloxetine DR (Duloxetine HCl) 20 Mg Capdr 20 Mg PO DAILY take 2 capsules daily Review of Systems Except as stated in HPI: all other systems reviewed are Neg Physical Exam Narrative GENERAL: 47yo F in mild distress. SKIN: Focused skin assessment warm/dry. HEAD: Atraumatic. Normocephalic. EYES: Pupils equal and round. No scleral icterus. No injection or drainage. ENT: No nasal bleeding or discharge. Mucous membranes pink and moist. NECK: Trachea midline. No JVD. CARDIOVASCULAR: Regular rate and rhythm. No murmur appreciated. RESPIRATORY: No accessory muscle use. End expiratory wheezing. GASTROINTESTINAL: Abdomen soft, non-tender, nondistended. MUSCULOSKELETAL: No obvious deformities. No clubbing. No cyanosis. No edema. NEUROLOGICAL: Awake and alert. No obvious cranial nerve deficits. Motor grossly within normal limits in all extremities. Sensation intact. Normal speech. PSYCHIATRIC: Appropriate mood and affect; insight and judgment normal. Data Data Last Documented VS Vital Signs Date Time Temp Pulse Resp B/P (MAP) Pulse Ox O2 Delivery O2 Flow Rate FiO2 11/01/17 02:28 105 20 129/75 (93) 96 Room Air 10/31/17 22:24 98.0 Orders Orders Basic Metabolic Panel (Bmp) (10/31/17 22:22) Complete Blood Count With Diff (10/31/17 22:22) Magnesium (Mg) (10/31/17 22:22) Prothrombin Time / Inr (Pt) (10/31/17 22:22) Act Partial Throm Time (Ptt) (10/31/17 22:22) Troponin I (10/31/17 22:22) Lipase (10/31/17 22:22) Chest, Single Ap (10/31/17 22:22) Ecg Monitoring (10/31/17 22:22) Bilateral Bp Monitoring (10/31/17 22:22) Iv Access Insert/Monitor (10/31/17 22:22) Oximetry (10/31/17 22:22) Electrocardiogram (10/31/17 ) Methylprednisolone So Succ Inj (Solumedr (10/31/17 22:30) Albuterol-Ipratropium Neb (Duoneb Neb) (10/31/17 22:30) Ondansetron Odt (Zofran Odt) (10/31/17 22:30) Sodium Chlor 0.9% 1000 Ml Inj (Ns 1000 M (10/31/17 22:30) B-Type Natriuretic Peptide (10/31/17 22:30) Sodium Chlor 0.9% 1000 Ml Inj (Ns 1000 M (11/01/17 01:45) Labs Laboratory Tests Test 10/31/17 22:36 White Blood Count 7.6 TH/MM3 Red Blood Count 4.39 MIL/MM3 Hemoglobin 9.6 GM/DL Hematocrit 29.9 % Mean Corpuscular Volume 68.0 FL Mean Corpuscular Hemoglobin 21.8 PG Mean Corpuscular Hemoglobin Concent 32.0 % Red Cell Distribution Width 20.3 % Platelet Count 188 TH/MM3 Mean Platelet Volume 10.9 FL Neutrophils (%) (Auto) 70.9 % Lymphocytes (%) (Auto) 21.1 % Monocytes (%) (Auto) 5.8 % Eosinophils (%) (Auto) 1.9 % Basophils (%) (Auto) 0.3 % Neutrophils # (Auto) 5.4 TH/MM3 Lymphocytes # (Auto) 1.6 TH/MM3 Monocytes # (Auto) 0.4 TH/MM3 Eosinophils # (Auto) 0.1 TH/MM3 Basophils # (Auto) 0.0 TH/MM3 CBC Comment AUTO DIFF Differential Comment AUTO DIFF CONFIRMED Platelet Estimate NORMAL Platelet Morphology Comment ENLARGED Prothrombin Time 10.3 SEC Prothromb Time International Ratio 1.0 RATIO Activated Partial Thromboplast Time 22.4 SEC Blood Urea Nitrogen 16 MG/DL Creatinine 1.14 MG/DL Random Glucose 153 MG/DL Calcium Level 8.8 MG/DL Magnesium Level 1.9 MG/DL Sodium Level 139 MEQ/L Potassium Level 3.1 MEQ/L Chloride Level 100 MEQ/L Carbon Dioxide Level 26.6 MEQ/L Anion Gap 12 MEQ/L Estimat Glomerular Filtration Rate 51 ML/MIN Troponin I LESS THAN 0.02 NG/ML B-Type Natriuretic Peptide 7 PG/ML Lipase 439 U/L [facility] Medical Decision Making Medical Screen Exam Complete: Yes Emergency Medical Condition: Yes Differential Diagnosis Musculoskeletal pain vs. ACS vs. GERD vs. pneumonia vs. asthma exacerbation Narrative Course 47yo F with atypical chest pain. Pt has wheezing on exam and history of asthma so given methylprednisolone and duonebs. Labs reviewed, no leukocytosis. H/H low at 9.6/29.9 but this is her baseline. Mild hypokalemia at 3.1, replaced orally. Troponin negative. Lipase mildly elevated at 439, informed pt to follow up as outpatient. Abdominal exam unremarkable. BNP 7. CXR negative. Pt reevaluated at bedside and pt feels much better. Denies any more sob or chest pain. Pt wants to go home. Said she is not nauseous anymore. Pt was tachycardic so given NS IVF which improved HR. Return precautions given. Diagnosis Primary Impression: Acute asthma exacerbation Qualified Codes: J45.901 - Unspecified asthma with (acute) exacerbation Additional Impression: Atypical chest pain Patient Instructions: General Instructions Departure Forms: Tests/Procedures Additional Instructions: Please follow up with your primary care physician in 2-3 days. Your lipase today is mildly elevated at 439, please follow up with your primary care physician. Return to the ED if symptoms worsen. Med/Other Pt SpecificInfo: Prescription(s) given Scripts Prednisone (Deltasone) 20 Mg Tab 20 MG PO BID for 5 Days, #10 TAB 0 Refills Prov: Nany Santiago DO 11/01/17 Albuterol 18 GM Inh (Ventolin Hfa 18 GM Inh) 90 Mcg/Act Aer 2 PUFF INH Q4H Y for SHORTNESS OF BREATH, #1 INHALER 0 Refills Prov: Nany Santiago DO 11/01/17 Disposition: 01 DISCHARGE HOME Condition: Stable Nany Santiago DO October 31, 2017 22:28
[2017-10-31] MEDS ORDERED: PRED10 PO (22:30)
[2017-10-31] MEDS ORDERED: ATOR10TA15 PO (22:30)
[2017-10-31] MEDS ORDERED: ONDANSETRON ODT 4 MG TAB PO ONE (22:30)
[2017-10-31] MEDS ORDERED: MELO15TA20 PO (22:30)
[2017-10-31] MEDS ORDERED: QUET5TAB PO (22:30)
[2017-10-31] MEDS ORDERED: PROM12.54 PO (22:30)
[2017-10-31] MEDS ORDERED: SODIUM CHLOR 0.9% 1000 ML INJ 1,000 ML IV ONE (22:30)
[2017-10-31] MEDS ORDERED: SENN1TAB PO (22:30)
[2017-10-31] MEDS ORDERED: FERR325T18 PO (22:30)
[2017-10-31] MEDS ORDERED: CHLO25TA2 PO (22:30)
[2017-10-31] MEDS ORDERED: methylPREDNISolone SOD SUCC 125 MG/2 ML VIAL IV PUSH ONE (22:30)
[2017-10-31 22:49] LABS: AUTOMATED NEUTROPHIL # 5.4 TH/MM3 (1.8-7.7); BASOPHIL % 0.3 % (0.0-2.0); EOSINOPHIL # 0.1 TH/MM3 (0-0.4); EOSINOPHIL % 1.9 % (0.0-4.0); HEMATOCRIT 29.9 % (35.0-46.0); HEMOGLOBIN 9.6 GM/DL (11.6-15.3); LYMPH % 21.1 % (9.0-44.0); LYMPHOCYTE # 1.6 TH/MM3 (1.0-4.8); MEAN CORPUSCULAR HEMOGLOBIN 21.8 PG (27.0-34.0); MEAN PLATELET VOLUME 10.9 FL (7.0-11.0); MONO % 5.8 % (0.0-8.0); MONOCYTE # 0.4 TH/MM3 (0-0.9); NEUT % 70.9 % (16.0-70.0); PLATELET COUNT 188 TH/MM3 (150-450); RED BLOOD COUNT 4.39 MIL/MM3 (4.00-5.30); RED CELL DISTRIBUTION WIDTH 20.3 % (11.6-17.2); WHITE BLOOD COUNT 7.6 TH/MM3 (4.0-11.0)
[2017-10-31] MEDS: RESP: ALBUTEROL 2.5 MG/IPRATROPIUM 0.5 MG NEB (SCH) INH ×2 (22:53→22:54)
[2017-10-31 23:00] LABS: PROTHROMBIN TIME - PATIENT 10.3 SEC (9.8-11.6)
--- NOTE | 2017-10-31 23:01 | RADRPT ---
EXAM DATE: 10/31/2017 10:56 PM EDT AGE/SEX: 47 years / Female INDICATIONS: Short of breath. CLINICAL DATA: This is the patient's initial encounter. Patient reports that signs and symptoms have been present for 1 day and indicates a pain score of 0/10. MEDICAL/SURGICAL HISTORY: None. None. [place] [facility] [place]. . FINDINGS: A single AP view of the chest demonstrates the lungs to be symmetrically aerated without evidence of mass, infiltrate or effusion. The cardiomediastinal contours are unremarkable. Osseous structures a re intact. CONCLUSION: The lungs are clear. Electronically signed by: Abhijeet Moses MD 10/31/2017 11:00 PM EDT
[2017-10-31 23:06] LABS: BICARBONATE 26.6 MEQ/L (21.0-32.0); BLOOD UREA NITROGEN 16 MG/DL (7-18); CALCIUM 8.8 MG/DL (8.5-10.1); CHLORIDE 100 MEQ/L (98-107); CREATININE 1.14 MG/DL (0.50-1.00); GLOMERULAR FILTRATION RATE 51 ML/MIN (>89); GLUCOSE,RANDOM 153 MG/DL (74-106); MAGNESIUM 1.9 MG/DL (1.5-2.5); SODIUM (NA) 139 MEQ/L (136-145)
[2017-10-31 23:10] LABS: TROPONIN I LESS THAN 0.02 NG/ML (0.02-0.05)
[2017-11-01] MEDS ORDERED: SODIUM CHLOR 0.9% 1000 ML INJ 1,000 ML IV ONE (01:45)
[2017-11-01] MEDS ORDERED: PRED-503 PO (02:07)
[2017-11-01] MEDS ORDERED: VENTAER INH (02:07)
[2017-11-01 02:28] VITALS: BP 129/75; PULSE 105; RESP 20; O2SAT 96
[2017-11-01] MEDS ORDERED: POTASSIUM CHLORIDE 20 MEQ CONTROLLED RELEASE TAB PO ONE (02:45)
--- NOTE | 2017-11-01 14:56 | EKG ---
Date Performed: 10/31/2017 Time Performed: 22:48:05 PTAGE: 47 years EKG: SINUS TACHYCARDIA POSSIBLE LEFT ATRIAL ENLARGEMENT ABNORMAL RHYTHM ECG Compared to prior el ectrocardiogram, Sinus rhythm has replaced probable ectopic atrial rhythm. DOCTOR: Jeffery Ramires Interpretating Date/Time 11/01/2017 14:55:19
== END 2017-11-01 03:36 | disposition home or self-care (01) ==
LOC: NEPC 22:08
DX: J45.901 Unspecified asthma with (acute) exacerbation (principal); E11.43 Type 2 diabetes mellitus with diabetic autonomic (poly)neuropathy; K31.84 Gastroparesis; M32.9 Systemic lupus erythematosus, unspecified; M79.7 Fibromyalgia; I10 Essential (primary) hypertension; R06.02 Shortness of breath; Z79.4 Long term (current) use of insulin
CPT/HCPCS: 71045; 80048; 83690; 83735; 83880; 84484; 85025; 85610; 85730; 93005; 94640; 94664; 96361; 96374; 99285; J2930; J7030